=== PATIENT | female | born 1945 | race Caucasian/White ===

== ENCOUNTER 2022-04-17 21:13 | Observation (INO) | payer MEDICARE ==
[2022-04-17] MEDS ORDERED: D50W 50 ml Abboject IV ONE ×3 (21:26→22:11)
[2022-04-17] MEDS ORDERED: Zofran 4 MG/2 ML VIAL IV ONE (21:47)
[2022-04-17] MEDS ORDERED: Sodium Chloride 0.9% 1000 ML 1,000 ML ONE (21:51)
[2022-04-17] MEDS ORDERED: Zofran 4 MG/2 ML VIAL ONE (21:51)
[2022-04-17] MEDS ORDERED: Sodium Chloride 0.9% 1000 ML 1,000 ML IV SCH (22:00)
[2022-04-17] MEDS: DEXTROSE 10% 250 ML 250 ML IV SCH (22:15)
--- NOTE | 2022-04-17 22:16 | ERPHSYRPT ---
- History of Present Illness Time Seen by Provider: 04/17/22 21:19 Source: patient, family, EMS Exam Limitations: no limitations Patient Subjective Stated Complaint: feels tired Triage Nursing Assessment: Arrives via SCAT 1 to room 3. Placed on monitor. Pt oriented x 3 but quickly drifts back off to sleep. Becomes alert when name called. VSS, skin pale, warm, dry. Wound dressings noted to bilater lower extremities. EMS reports family called for unresponsiveness. Upon EMS arrival, glucose found to be 53. Half amp D50 given by EMS, EMS reports glucose michael to 117. EMS initiated 20 ga IV in R hand. Upon arrival to ED, RN found glucose to be 38 on finger stick. aware, received order for half amp D50. Given IV @ 2130. Glucose recheck at 2140 read 92. Pt remains drowsy but easily arouses when name called. Daughter at bedside. gleason gear generator initiated. 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 She was given 4 units of Humalog around 6 PM and she did have dinner afterwards. On EMS arrival her blood sugar was in 50s, was given half ampule of D50 and improved to 117 but again dropped to 38 on presentation in the ER. I have given another half ampule of D50. Patient is awake alert and oriented and answering questions appropriately. She denies any chest pain palpitations or shortness of breath. No abdominal pain nausea or vomiting. Denies any blurry vision, numbness tingling or focal weakness. Per daughter she has always issue with controlling her diabetes mellitus. Timing/Duration: hour(s) (0.5), improved Severity: moderate Modifying Factors: Improves With: other (IV dextrose 50) Associated Symptoms: weakness Allergies/Adverse Reactions: No Known Drug Allergies Allergy (Unverified 04/18/22 00:46) Home Medications: Allopurinol 100 mg [Zyloprim 100 mg] 100 mg PO DAILY 04/17/22 [History] Amitriptyline HCl 10 mg [Elavil 10 mg] 10 mg PO DAILY 04/17/22 [History] Aspirin EC 81 mg [Ecotrin 81 mg] 81 mg PO DAILY 04/17/22 [History] Atorvastatin Calcium 80 mg PO QHS 04/17/22 [History] Azelastine HCl 1 drop OP DAILY 04/17/22 [History] Balsalazide Disodium 750 mg PO QHS 04/17/22 [History] Calcium Carb, Citrate/Vit D3 [Calcium + D3 ER Tablet] 1 tab PO DAILY 04/17/22 [History] Ciclopirox/Skin Cleanser No.28 [Ciclodan 0.77% Cream Kit] 1 applic TOP QHS 04/17/22 [History] Collagenase Oint [Santyl OINTMENT] 1 applic TOP DAILY 04/17/22 [History] Divalproex Sodium [Depakote] 250 mg PO DAILY 04/17/22 [History] Divalproex Sodium [Depakote] 500 mg PO EVENING MEAL 04/17/22 [History] Duloxetine HCl 30 mg PO DAILY 04/17/22 [History] Duloxetine HCl [Cymbalta] 60 mg PO DAILY 04/17/22 [History] Furosemide 80 mg PO DAILY 04/17/22 [History] Furosemide 40 mg [Lasix 40 MG] 40 mg PO LUNCH 04/17/22 [History] Insulin Detemir [Levemir] 24 units SQ QHS 04/17/22 [History] Insulin Detemir [Levemir] 30 unit SQ QAM 04/17/22 [History] Insulin Lispro [Admelog Solostar] 1 unit SQ AC 04/17/22 [History] Levothyroxine Sodium [Levothyroxine] 25 mcg PO DAILY 04/17/22 [History] Lipase/Protease/Amylase [Elvis Portillo 24,000 Unit Capsule] 24,000 units PO AC 04/17/22 [History] Metoprolol Tartrate 25 mg PO BID 04/17/22 [History] Nitroglycerin 0.4 mg SL UD 04/17/22 [History] Oxybutynin Chloride 5 mg PO BID 04/17/22 [History] Pramipexole Di-HCl [Pramipexole Dihydrochloride] 1 mg PO TID 04/17/22 [History] Rivaroxaban [Xarelto] 15 mg PO EVENING MEAL 04/17/22 [History] Vitamin B Complex 1 tab PO DAILY 04/17/22 [History] Melatonin 10 mg PO QHS 04/18/22 [History] Triamcinolone 0.1% Lotion [Kenalog 0.1% Lotion] 1 applic TOP QHS 04/18/22 [History] Hx Tetanus, Diphtheria Vaccination/Date Given: No Hx Influenza Vaccination/Date Given: Yes (2011) Hx Pneumococcal Vaccination/Date Given: No Travel Risk - International Travel Have you traveled outside of the country in past 3 weeks: No - Coronavirus Screening Are you exhibiting any of the following symptoms?: No Close contact with a COVID-19 positive Pt in past 14-21 Days: No - Vaccine Status Have you recieved a Covid-19 vaccination: Yes Craft Coordinator: Unknown - Vaccination Dates Dates if Unknown: unknown - Review of Systems Constitutional: Fatigue, Weakness Eyes: No Symptoms Ears, Nose, & Throat: No Symptoms Respiratory: No Symptoms Cardiac: No Symptoms Abdominal/Gastrointestinal: No Symptoms Genitourinary Symptoms: No Symptoms Musculoskeletal: No Symptoms Skin: Rash, Skin Lesions Neurological: No Symptoms Psychological: No Symptoms Endocrine: No Symptoms Hematologic/Lymphatic: No Symptoms Immunological/Allergic: No Symptoms - Past Medical History Pertinent Past Medical History: Yes Neurological History: Migraines, TIA, Other ENT History: No Pertinent History Cardiac History: High Cholesterol, Hypertension, Other Respiratory History: No Pertinent History Endocrine Medical History: Diabetes Type II Musculoskeletal History: No Pertinent History, Degenerative Disk Disease GI Medical History: Irritable Bowel History: No Pertinent History Psycho-Social History: No Pertinent History Female Reproductive Disorders: No Pertinent History Other Medical History: NEUROPATHY - Past Surgical History Past Surgical History: Yes Cardiac: Pacemaker Gastrointestinal: Appendectomy, Cholecystectomy Musculoskeletal: Joint Replacement, Orthopedic Surgery Other Surgical History: BARIATRIC SURG,CARPAL TUNNEL - Social History Smoking Status: Never smoker Exposure to second hand smoke: Yes Drug Use: none Patient Lives Alone: Yes - Nursing Vital Signs Nursing Vital Signs: Initial Vital Signs Temperature 97.9 F 04/17/22 21:18 Pulse Rate 73 04/17/22 21:18 Respiratory Rate 16 04/17/22 21:18 Blood Pressure 111/48 04/17/22 21:18 O2 Sat by Pulse Oximetry 96 04/17/22 21:18 Pain Scale Pain Intensity 2 - Physical Exam General Appearance: no apparent distress, alert Eye Exam: PERRL/EOMI Ears, Nose, Throat Exam: normal ENT inspection, TMs normal, pharynx normal, moist mucous membranes Neck Exam: normal inspection, full range of motion Respiratory Exam: normal breath sounds, lungs clear Cardiovascular Exam: regular rate/rhythm, normal heart sounds Gastrointestinal/Abdomen Exam: soft, normal bowel sounds Back Exam: normal inspection, normal range of motion Extremity Exam: other Neurologic Exam: alert, oriented x 3, cooperative, solar project engineer II-XII 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 as tested, No motor deficits Skin Exam: rash SpO2 Interpretation: normal SpO2: 96 O2 Delivery: Room Air - Course EKG Interpreted by Me: RATE (78 atrial paced rhythm, PVCs), NORMAL AXIS, Right Bundle Branch Block, Non-specific ST Changes Ordered Tests: Active Orders 24 hr Category Date Time Status Bedrest ROUTINE Activity 04/18/22 00:38 Active Up With Assistance ROUTINE Activity 04/18/22 00:38 Active Code Status Order ROUTINE Care 04/18/22 00:38 Active EKG-ER Only STAT Care 04/17/22 21:47 Completed Fall Protocol Q1H Care 04/18/22 00:38 Active Kim [Catheter-Hawley Kim] STAT Care 04/17/22 23:32 Completed IV Care Q6H Care 04/18/22 00:38 Active IV Insertion STAT Care 04/17/22 21:47 Completed NPO (ED) STAT Care 04/17/22 21:47 Completed Neuro Checks Q1H Care 04/18/22 00:38 Active POCT Glucose Check Q1H Care 04/18/22 00:[address] in Observation ROUTINE Care 04/18/22 00:38 Active Shamika Kapoor ROUTINE Care 04/18/22 00:38 Active Weight,Daily 0600 Care 04/18/22 00:38 Active Consistent Carbohydrate Diet 1800 Calorie Diet 04/18/22 Breakfast Active CHEST 1 VIEW (PORTABLE) Stat Exams 04/17/22 21:47 Taken BLOOD CULTURE Stat Lab 04/17/22 22:13 Received BNP [NT PRO BNP] Stat Lab 04/17/22 22:20 Completed CBC W DIFF AM.LAB Lab 04/18/22 04:42 Completed CBC W DIFF Stat Lab 04/17/22 22:13 Completed CMP AM.LAB Lab 04/18/22 04:42 Completed CMP Stat Lab 04/17/22 22:13 Completed Lactic Acid Stat Lab 04/17/22 22:10 Completed Occult Blood Stool [FECAL OCCULT BLOOD -DIAGNOSTIC] Lab 04/17/22 23:45 Ordered Stat POCT GLUCOSE Stat Lab 04/17/22 21:25 Completed POCT GLUCOSE Stat Lab 04/17/22 21:39 Completed POCT GLUCOSE Stat Lab 04/17/22 22:03 Completed POCT GLUCOSE Stat Lab 04/17/22 22:32 Completed POCT GLUCOSE Stat Lab 04/17/22 23:15 Completed POCT GLUCOSE Stat Lab 04/18/22 00:15 Completed PROCALCITONIN Stat Lab 04/17/22 22:13 Completed TROPONIN Q4H Lab 04/17/22 22:13 Completed TROPONIN Q4H Lab 04/18/22 01:18 Completed TROPONIN Q4H Lab 04/18/22 04:42 Completed UA W/RFX CULTURE Stat Lab 04/17/22 23:46 Completed Medication Summary Generic Name Dose Route Start Last Admin Trade Name Freq PRN Reason Stop Dose Admin Acetaminophen 650 mg 04/18/22 00:38 Acetaminophen 325 Mg Tablet PO 05/18/22 00:37 Q4H PRN PRN PAIN AND/OR FEVER Dextrose 250 mls @ 30 mls/hr 04/17/22 22:30 04/18/22 03:14 Dextrose 10% 250 Ml IV 05/17/22 22:29 50 mls/hr .Q8H20M CORNELIA Administration Pantoprazole Sodium 40 mg 04/18/22 10:00 Pantoprazole 40 Mg Vial IV 05/18/22 09:59 Q24H10 CORNELIA Discontinued Medications Generic Name Dose Route Start Last Admin Trade Name Freq PRN Reason Stop Dose Admin Albuterol/Ipratropium 3 ml 04/18/22 00:38 Ipratropium/Albuterol Sulfate 3 Ml Ampul.Neb IH 05/18/22 00:37 Q4HPRN PRN SHORTNESS OF BREATH/WHEEZING Dextrose Confirm 04/17/22 21:26 Dextrose 50%-Water 50 Ml Abboject Administered 04/17/22 21:27 Dose 50 ml IV .STK-MED ONE Dextrose 25 ml 04/17/22 22:10 04/17/22 21:30 Dextrose 50%-Water 50 Ml Abboject IV 04/17/22 22:11 25 ml STAT ONE Administration Dextrose 25 ml 04/17/22 22:11 04/17/22 22:12 Dextrose 50%-Water 50 Ml Abboject IV 04/17/22 22:12 25 ml STAT ONE Administration Sodium Chloride 1,000 mls @ 100 mls/hr 04/17/22 22:00 04/17/22 23:32 Sodium Chloride 0.9% 1000 Ml IV 05/17/22 21:59 0 mls/hr .Q10H CORNELIA Infusion Sodium Chloride Confirm 04/17/22 21:51 Sodium Chloride 0.9% 1000 Ml Administered 04/17/22 21:52 Dose 1,000 mls @ ud .ROUTE .STK-MED ONE Ondansetron HCl 4 mg 04/17/22 21:47 04/17/22 21:52 Ondansetron Hcl 4 Mg/2 Ml Vial IV 04/17/22 21:48 4 mg STAT ONE Administration Ondansetron HCl Confirm 04/17/22 21:51 Ondansetron Hcl 4 Mg/2 Ml Vial Administered 04/17/22 21:52 Dose 4 mg .ROUTE .STK-MED ONE Potassium Chloride 40 meq 04/17/22 22:54 04/17/22 22:58 Potassium Chloride Tab 10 Meq Tab PO 04/17/22 22:55 40 meq STAT ONE Administration Potassium Chloride Confirm 04/17/22 22:56 Potassium Chloride Tab 10 Meq Tab Administered 04/17/22 22:57 Dose 40 meq PO .STK-MED ONE Lab/Rad Data: Laboratory Result Diagrams 04/17/22 22:13 04/17/22 22:13 Laboratory Results 04/18/22 04/17/22 04/17/22 Range/Units 00:15 23:46 23:15 WBC (4.0-10.5) x10^3/uL RBC (4.1-5.4) x10^6/uL Hgb (12.0-16.0) g/dL Hct (35-47) % MCV (78-100) fL MCH (26-32) pg MCHC (32-36) g/dL RDW (11.5-14.0) % Plt Count (150-450) x10^3/uL MPV (7.5-11.0) fL Gran % (36.0-66.0) % Immature Gran % (Auto) (0.00-0.4) % Nucleat RBC Rel Count (0.00-0.1) % Eos # (Auto) (0-0.5) x10^3/uL Immature Gran # (Auto) (0.00-0.03) x10^3u/L Absolute Lymphs (auto) (1.0-4.6) x10^3/uL Absolute Monos (auto) (0.0-1.3) x10^3/uL Absolute Nucleated RBC (0.00-0.01) x10^3u/L Lymphocytes % (24.0-44.0) % Monocytes % (0.0-12.0) % Eosinophils % (0.00-5.0) % Basophils % (0.0-0.4) % Absolute Granulocytes (1.4-6.9) x10^3/uL Basophils # (0-0.4) x10^3/uL Sodium (137-145) mmol/L Potassium (3.5-5.1) mmol/L Chloride (98-107) mmol/L Carbon Dioxide (22-30) mmol/L Anion Gap (5-15) MEQ/L BUN (7-17) mg/dL Creatinine (0.52-1.04) mg/dL Estimated GFR ML/MIN Glucose (74-106) mg/dL POC Glucometer 146 H 79 (50 to 500) mg/dL Lactic Acid (0.4-2.0) Calcium (8.4-10.2) mg/dL Total Bilirubin (0.2-1.3) mg/dL AST (14-36) U/L ALT (0-35) U/L Alkaline Phosphatase (38-126) U/L Troponin I (0.000-0.034) ng/mL NT-Pro-B Natriuret Pep (0-900) pg/mL Serum Total Protein (6.3-8.2) g/dL Albumin (3.5-5.0) g/dL Procalcitonin (0.030-0.080) ng/mL Urinalys Dipstick Clnc MAIN LAB Urine Color YELLOW (YELLOW) Urine Appearance CLEAR (CLEAR) Urine pH 5.5 (5-6) Ur Specific Warren 1.020 (1.005-1.025) POC Urine Protein Conf 30 (Negative) Urine Ketones NEGATIVE (NEGATIVE) Urine Nitrite NEGATIVE (NEGATIVE) Urine Bilirubin NEGATIVE (NEGATIVE) Urine Urobilinogen 0.2 (0-1) mg/dL Urine Leukocytes NEGATIVE (NEGATIVE) Urine WBC (Auto) 0-2 (0-5) /HPF Urine RBC (Auto) NONE (0-2) /HPF U Hyaline Cast (Auto) 6-10 (0-2) /LPF U Epithel Cells (Auto) RARE (FEW) /HPF Urine Bacteria (Auto) NONE SEEN (NEGATIVE) /HPF Urine RBC NEGATIVE (0-5) Chente/ul Urine Mucus (Auto) SLIGHT (NEGATIVE) /HPF Ur Culture Indicated? NO Urine Glucose NEGATIVE (NEGATIVE) mg/dL Influenza Type A Ag (NEGATIVE) Influenza Type B Ag (NEGATIVE) RSV (PCR) (Negative) SARS-CoV-2 (PCR) (NEGATIVE) ABO Group Rh Factor Antibody Screen (NEGATIVE) Crossmatch (COMPATIBLE) 04/17/22 04/17/22 04/17/22 Range/Units 23:02 22:32 22:20 WBC (4.0-10.5) x10^3/uL RBC (4.1-5.4) x10^6/uL Hgb (12.0-16.0) g/dL Hct (35-47) % MCV (78-100) fL MCH (26-32) pg MCHC (32-36) g/dL RDW (11.5-14.0) % Plt Count (150-450) x10^3/uL MPV (7.5-11.0) fL Gran % (36.0-66.0) % Immature Gran % (Auto) (0.00-0.4) % Nucleat RBC Rel Count (0.00-0.1) % Eos # (Auto) (0-0.5) x10^3/uL Immature Gran # (Auto) (0.00-0.03) x10^3u/L Absolute Lymphs (auto) (1.0-4.6) x10^3/uL Absolute Monos (auto) (0.0-1.3) x10^3/uL Absolute Nucleated RBC (0.00-0.01) x10^3u/L Lymphocytes % (24.0-44.0) % Monocytes % (0.0-12.0) % Eosinophils % (0.00-5.0) % Basophils % (0.0-0.4) % Absolute Granulocytes (1.4-6.9) x10^3/uL Basophils # (0-0.4) x10^3/uL Sodium (137-145) mmol/L Potassium (3.5-5.1) mmol/L Chloride (98-107) mmol/L Carbon Dioxide (22-30) mmol/L Anion Gap (5-15) MEQ/L BUN (7-17) mg/dL Creatinine (0.52-1.04) mg/dL Estimated GFR ML/MIN Glucose (74-106) mg/dL POC Glucometer 103 (50 to 500) mg/dL Lactic Acid (0.4-2.0) Calcium (8.4-10.2) mg/dL Total Bilirubin (0.2-1.3) mg/dL AST (14-36) U/L ALT (0-35) U/L Alkaline Phosphatase (38-126) U/L Troponin I (0.000-0.034) ng/mL NT-Pro-B Natriuret Pep 964 H (0-900) pg/mL Serum Total Protein (6.3-8.2) g/dL Albumin (3.5-5.0) g/dL Procalcitonin (0.030-0.080) ng/mL Urinalys Dipstick Clnc Urine Color (YELLOW) Urine Appearance (CLEAR) Urine pH (5-6) Ur Specific Warren (1.005-1.025) POC Urine Protein Conf (Negative) Urine Ketones (NEGATIVE) Urine Nitrite (NEGATIVE) Urine Bilirubin (NEGATIVE) Urine Urobilinogen (0-1) mg/dL Urine Leukocytes (NEGATIVE) Urine WBC (Auto) (0-5) /HPF Urine RBC (Auto) (0-2) /HPF U Hyaline Cast (Auto) (0-2) /LPF U Epithel Cells (Auto) (FEW) /HPF Urine Bacteria (Auto) (NEGATIVE) /HPF Urine RBC (0-5) Chente/ul Urine Mucus (Auto) (NEGATIVE) /HPF Ur Culture Indicated? Urine Glucose (NEGATIVE) mg/dL Influenza Type A Ag NEGATIVE (NEGATIVE) Influenza Type B Ag NEGATIVE (NEGATIVE) RSV (PCR) NEGATIVE (Negative) SARS-CoV-2 (PCR) NEGATIVE (NEGATIVE) ABO Group Rh Factor Antibody Screen (NEGATIVE) Crossmatch (COMPATIBLE) 04/17/22 04/17/22 04/17/22 Range/Units 22:13 22:13 22:13 WBC (4.0-10.5) x10^3/uL RBC (4.1-5.4) x10^6/uL Hgb (12.0-16.0) g/dL Hct (35-47) % MCV (78-100) fL MCH (26-32) pg MCHC (32-36) g/dL RDW (11.5-14.0) % Plt Count (150-450) x10^3/uL MPV (7.5-11.0) fL Gran % (36.0-66.0) % Immature Gran % (Auto) (0.00-0.4) % Nucleat RBC Rel Count (0.00-0.1) % Eos # (Auto) (0-0.5) x10^3/uL Immature Gran # (Auto) (0.00-0.03) x10^3u/L Absolute Lymphs (auto) (1.0-4.6) x10^3/uL Absolute Monos (auto) (0.0-1.3) x10^3/uL Absolute Nucleated RBC (0.00-0.01) x10^3u/L Lymphocytes % (24.0-44.0) % Monocytes % (0.0-12.0) % Eosinophils % (0.00-5.0) % Basophils % (0.0-0.4) % Absolute Granulocytes (1.4-6.9) x10^3/uL Basophils # (0-0.4) x10^3/uL Sodium 140 (137-145) mmol/L Potassium 3.0 L* (3.5-5.1) mmol/L Chloride 104 (98-107) mmol/L Carbon Dioxide 26 (22-30) mmol/L Anion Gap 12.7 (5-15) MEQ/L BUN 20 H (7-17) mg/dL Creatinine 1.22 H (0.52-1.04) mg/dL Estimated GFR 45.8 ML/MIN Glucose 71 L (74-106) mg/dL POC Glucometer (50 to 500) mg/dL Lactic Acid (0.4-2.0) Calcium 8.0 L (8.4-10.2) mg/dL Total Bilirubin 0.40 (0.2-1.3) mg/dL AST 30 (14-36) U/L ALT 16 (0-35) U/L Alkaline Phosphatase 111 (38-126) U/L Troponin I < 0.012 (0.000-0.034) ng/mL NT-Pro-B Natriuret Pep (0-900) pg/mL Serum Total Protein 6.0 L (6.3-8.2) g/dL Albumin 3.2 L (3.5-5.0) g/dL Procalcitonin 0.037 (0.030-0.080) ng/mL Urinalys Dipstick Clnc Urine Color (YELLOW) Urine Appearance (CLEAR) Urine pH (5-6) Ur Specific Warren (1.005-1.025) POC Urine Protein Conf (Negative) Urine Ketones (NEGATIVE) Urine Nitrite (NEGATIVE) Urine Bilirubin (NEGATIVE) Urine Urobilinogen (0-1) mg/dL Urine Leukocytes (NEGATIVE) Urine WBC (Auto) (0-5) /HPF Urine RBC (Auto) (0-2) /HPF U Hyaline Cast (Auto) (0-2) /LPF U Epithel Cells (Auto) (FEW) /HPF Urine Bacteria (Auto) (NEGATIVE) /HPF Urine RBC (0-5) Chente/ul Urine Mucus (Auto) (NEGATIVE) /HPF Ur Culture Indicated? Urine Glucose (NEGATIVE) mg/dL Influenza Type A Ag (NEGATIVE) Influenza Type B Ag (NEGATIVE) RSV (PCR) (Negative) SARS-CoV-2 (PCR) (NEGATIVE) ABO Group Rh Factor Antibody Screen (NEGATIVE) Crossmatch (COMPATIBLE) 04/17/22 04/17/22 04/17/22 Range/Units 22:13 22:10 22:03 WBC 7.7 (4.0-10.5) x10^3/uL RBC 3.27 L (4.1-5.4) x10^6/uL Hgb 7.9 L (12.0-16.0) g/dL Hct 27.2 L (35-47) % MCV 83.2 (78-100) fL MCH 24.2 L (26-32) pg MCHC 29.0 L (32-36) g/dL RDW 16.6 H (11.5-14.0) % Plt Count 244 (150-450) x10^3/uL MPV 9.4 (7.5-11.0) fL Gran % 82.8 H (36.0-66.0) % Immature Gran % (Auto) 0.1 (0.00-0.4) % Nucleat RBC Rel Count 0.0 (0.00-0.1) % Eos # (Auto) 0.03 (0-0.5) x10^3/uL Immature Gran # (Auto) 0.01 (0.00-0.03) x10^3u/L Absolute Lymphs (auto) 0.75 L (1.0-4.6) x10^3/uL Absolute Monos (auto) 0.52 (0.0-1.3) x10^3/uL Absolute Nucleated RBC 0.00 (0.00-0.01) x10^3u/L Lymphocytes % 9.8 L (24.0-44.0) % Monocytes % 6.8 (0.0-12.0) % Eosinophils % 0.4 (0.00-5.0) % Basophils % 0.1 (0.0-0.4) % Absolute Granulocytes 6.33 (1.4-6.9) x10^3/uL Basophils # 0.01 (0-0.4) x10^3/uL Sodium (137-145) mmol/L Potassium (3.5-5.1) mmol/L Chloride (98-107) mmol/L Carbon Dioxide (22-30) mmol/L Anion Gap (5-15) MEQ/L BUN (7-17) mg/dL Creatinine (0.52-1.04) mg/dL Estimated GFR ML/MIN Glucose (74-106) mg/dL POC Glucometer 69 L (50 to 500) mg/dL Lactic Acid 0.6 (0.4-2.0) Calcium (8.4-10.2) mg/dL Total Bilirubin (0.2-1.3) mg/dL AST (14-36) U/L ALT (0-35) U/L Alkaline Phosphatase (38-126) U/L Troponin I (0.000-0.034) ng/mL NT-Pro-B Natriuret Pep (0-900) pg/mL Serum Total Protein (6.3-8.2) g/dL Albumin (3.5-5.0) g/dL Procalcitonin (0.030-0.080) ng/mL Urinalys Dipstick Clnc Urine Color (YELLOW) Urine Appearance (CLEAR) Urine pH (5-6) Ur Specific Warren (1.005-1.025) POC Urine Protein Conf (Negative) Urine Ketones (NEGATIVE) Urine Nitrite (NEGATIVE) Urine Bilirubin (NEGATIVE) Urine Urobilinogen (0-1) mg/dL Urine Leukocytes (NEGATIVE) Urine WBC (Auto) (0-5) /HPF Urine RBC (Auto) (0-2) /HPF U Hyaline Cast (Auto) (0-2) /LPF U Epithel Cells (Auto) (FEW) /HPF Urine Bacteria (Auto) (NEGATIVE) /HPF Urine RBC (0-5) Chente/ul Urine Mucus (Auto) (NEGATIVE) /HPF Ur Culture Indicated? Urine Glucose (NEGATIVE) mg/dL Influenza Type A Ag (NEGATIVE) Influenza Type B Ag (NEGATIVE) RSV (PCR) (Negative) SARS-CoV-2 (PCR) (NEGATIVE) ABO Group Rh Factor Antibody Screen (NEGATIVE) Crossmatch (COMPATIBLE) 04/17/22 04/17/22 04/17/22 Range/Units 21:39 21:25 01:18 WBC (4.0-10.5) x10^3/uL RBC (4.1-5.4) x10^6/uL Hgb (12.0-16.0) g/dL Hct (35-47) % MCV (78-100) fL MCH (26-32) pg MCHC (32-36) g/dL RDW (11.5-14.0) % Plt Count (150-450) x10^3/uL MPV (7.5-11.0) fL Gran % (36.0-66.0) % Immature Gran % (Auto) (0.00-0.4) % Nucleat RBC Rel Count (0.00-0.1) % Eos # (Auto) (0-0.5) x10^3/uL Immature Gran # (Auto) (0.00-0.03) x10^3u/L Absolute Lymphs (auto) (1.0-4.6) x10^3/uL Absolute Monos (auto) (0.0-1.3) x10^3/uL Absolute Nucleated RBC (0.00-0.01) x10^3u/L Lymphocytes % (24.0-44.0) % Monocytes % (0.0-12.0) % Eosinophils % (0.00-5.0) % Basophils % (0.0-0.4) % Absolute Granulocytes (1.4-6.9) x10^3/uL Basophils # (0-0.4) x10^3/uL Sodium (137-145) mmol/L Potassium (3.5-5.1) mmol/L Chloride (98-107) mmol/L Carbon Dioxide (22-30) mmol/L Anion Gap (5-15) MEQ/L BUN (7-17) mg/dL Creatinine (0.52-1.04) mg/dL Estimated GFR ML/MIN Glucose (74-106) mg/dL POC Glucometer 92 38 L* (50 to 500) mg/dL Lactic Acid (0.4-2.0) Calcium (8.4-10.2) mg/dL Total Bilirubin (0.2-1.3) mg/dL AST (14-36) U/L ALT (0-35) U/L Alkaline Phosphatase (38-126) U/L Troponin I (0.000-0.034) ng/mL NT-Pro-B Natriuret Pep (0-900) pg/mL Serum Total Protein (6.3-8.2) g/dL Albumin (3.5-5.0) g/dL Procalcitonin (0.030-0.080) ng/mL Urinalys Dipstick Clnc Urine Color (YELLOW) Urine Appearance (CLEAR) Urine pH (5-6) Ur Specific Warren (1.005-1.025) POC Urine Protein Conf (Negative) Urine Ketones (NEGATIVE) Urine Nitrite (NEGATIVE) Urine Bilirubin (NEGATIVE) Urine Urobilinogen (0-1) mg/dL Urine Leukocytes (NEGATIVE) Urine WBC (Auto) (0-5) /HPF Urine RBC (Auto) (0-2) /HPF U Hyaline Cast (Auto) (0-2) /LPF U Epithel Cells (Auto) (FEW) /HPF Urine Bacteria (Auto) (NEGATIVE) /HPF Urine RBC (0-5) Chente/ul Urine Mucus (Auto) (NEGATIVE) /HPF Ur Culture Indicated? Urine Glucose (NEGATIVE) mg/dL Influenza Type A Ag (NEGATIVE) Influenza Type B Ag (NEGATIVE) RSV (PCR) (Negative) SARS-CoV-2 (PCR) (NEGATIVE) ABO Group O Rh Factor POSITIVE Antibody Screen NEGATIVE (NEGATIVE) Crossmatch COMPATIBLE (COMPATIBLE) - Progress Progress: improved Progress Note: 04/17/22 23:23 76 years old is evaluated for hyperglycemia. She was hypoglycemic again on presentation after receiving half ampule of D50, I have repeated half ampule of D50 and started on D10 but again it is dropping to 79. She has normal white count, she has a hemoglobin of 7.9, no previous comparison available. She is on Xarelto but denies any history of dark stool. We will obtain records from [facility] where she normally goes. Chest x-ray no acute findings reviewed by me, official report is pending. Negative initial troponins. Has mildly low potassium of 3.0 and given oral replacement. Patient is awake alert and oriented and not in any distress. Discussed with and patient is being admitted. No obvious focus of infection and negative p rocalcitonin/lactate. 04/17/22 23:30 Discussed risk and benefits of transfusion with patient and family who understand and agree with going ahead with transfusion if needed. We will continue to monitor H&H and if drops below 7 patient would be transfused. We will try crossmatch and hold 2 units. Discussed with : Nico Will see patient in: hospital (observation) Counseled pt/family regarding: lab results, diagnosis, need for follow-up, rad results - Departure Departure Disposition: Observation Clinical Impression: Hypoglycemia, Hypokalemia, Anemia Condition: Stable Critical Care Time: No
[2022-04-17 22:17] LABS: Absolute Neutrophil Ct (ANC) 6.33 x10^3/uL (1.4-6.9); Basophil (Absolute #) 0.01 x10^3/uL (0-0.4); Eosinophil % 0.4 % (0.00-5.0); Eosinophil (Absolute #) 0.03 x10^3/uL (0-0.5); Hematocrit 27.2 % (35-47); Hemoglobin 7.9 g/dL (12.0-16.0); Lymphocyte (Absolute #) 0.75 x10^3/uL (1.0-4.6); Lymphocytes % 9.8 % (24.0-44.0); Mean Cell Volume 83.2 fL (78-100); Mean Corpuscular Hemoglobin 24.2 pg (26-32); Mean Platelet Volume 9.4 fL (7.5-11.0); Monocyte (Absolute #) 0.52 x10^3/uL (0.0-1.3); Monocytes % 6.8 % (0.0-12.0); Neutrophil % 82.8 % (36.0-66.0); Platelet Count 244 x10^3/uL (150-450); Red Blood Count 3.27 x10^6/uL (4.1-5.4); Red Cell Distribution Width 16.6 % (11.5-14.0); White Blood Count 7.7 x10^3/uL (4.0-10.5)
[2022-04-17 22:41] LABS: ALBUMIN 3.2 g/dL (3.5-5.0); ANION GAP 12.7 MEQ/L (5-15); BILIRUBIN,TOTAL 0.4 mg/dL (0.2-1.3); Creatinine 1 1.22 mg/dL (0.52-1.04); EST GLOMERULAR FILTRATION RATE 45.8 ML/MIN
[2022-04-17] MEDS ORDERED: Klor Con PO ONE ×2 (22:54→22:56)
[2022-04-17 23:42] LABS: INFLUENZA A NEGATIVE (NEGATIVE); INFLUENZA B NEGATIVE (NEGATIVE); RESPIRATORY SYNCTIAL VIRUS NEGATIVE (Negative); SARS-CoV-2 Xpert Express NEGATIVE (NEGATIVE)
[2022-04-17 23:46] LABS: Appearance CLEAR (CLEAR); Bilirubin NEGATIVE (NEGATIVE); Glucose NEGATIVE (NEGATIVE); Ketones NEGATIVE (NEGATIVE); Ph 5.5 (5-6); Protein,Urine Dip 30 (Negative); RBC NEGATIVE Ery/ul (0-5)
[2022-04-17 23:47] LABS: Dipstick done @ ? MAIN LAB; Nitrite NEGATIVE (NEGATIVE); Urobilinogen 0.2 mg/dL (0-1)
[2022-04-17 23:51] LABS: Epithelial Cells RARE /HPF (FEW); Mucus SLIGHT /HPF (NEGATIVE); WBC 0-2 /HPF (0-5)
[2022-04-17 23:54] LABS: Bacteria NONE SEEN /HPF (NEGATIVE); Urine Cultured Indicated? NO
[2022-04-18] MEDS ORDERED: DUONEB 0.5-3 MG/3 ml Neb IH PRN (00:38)
[2022-04-18 02:45] LABS: ABO TYPING O; Antibody Screen NEGATIVE (NEGATIVE); RH TYPING POSITIVE
[2022-04-18 02:50] LABS: CROSS MATCH (PRBC) COMPATIBLE (COMPATIBLE)
[2022-04-18] MEDS: DEXTROSE 10% 250 ML 250 ML IV SCH ×2 (03:14→09:45)
[2022-04-18 05:05] LABS: Absolute Neutrophil Ct (ANC) 5.11 x10^3/uL (1.4-6.9); Basophil (Absolute #) 0.02 x10^3/uL (0-0.4); Eosinophil % 0.4 % (0.00-5.0); Eosinophil (Absolute #) 0.03 x10^3/uL (0-0.5); Hematocrit 28.1 % (35-47); Hemoglobin 8.1 g/dL (12.0-16.0); Lymphocyte (Absolute #) 1.51 x10^3/uL (1.0-4.6); Lymphocytes % 20.9 % (24.0-44.0); Mean Cell Volume 84.9 fL (78-100); Mean Corpuscular Hemoglobin 24.5 pg (26-32); Mean Corpuscular Hgb Concent. 28.8 g/dL (32-36); Monocyte (Absolute #) 0.54 x10^3/uL (0.0-1.3); Monocytes % 7.5 % (0.0-12.0); Neutrophil % 70.8 % (36.0-66.0); Platelet Count 249 x10^3/uL (150-450); Red Blood Count 3.31 x10^6/uL (4.1-5.4); Red Cell Distribution Width 17.1 % (11.5-14.0); White Blood Count 7.2 x10^3/uL (4.0-10.5)
[2022-04-18 05:39] LABS: ALBUMIN 3.3 g/dL (3.5-5.0); ANION GAP 12.5 MEQ/L (5-15); BILIRUBIN,TOTAL 0.5 mg/dL (0.2-1.3); Calcium 7.9 mg/dL (8.4-10.2); Creatinine 1 1.22 mg/dL (0.52-1.04); EST GLOMERULAR FILTRATION RATE 45.8 ML/MIN; Potassium 3.6 mmol/L (3.5-5.1); Total Protein 6.4 g/dL (6.3-8.2)
[2022-04-18 05:49] LABS: Slide Review 1 YES
--- NOTE | 2022-04-18 07:55 | PCM.HP ---
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 She was given 4 units of Humalog around 6 PM and she did have dinner afterwards. On EMS arrival her blood sugar was in 50s, was given half ampule of D50 and improved to 117 but again dropped to 38 on presentation in the ER. I have given another half ampule of D50. Patient is awake alert and oriented and answering questions appropriately. She denies any chest pain palpitations or shortness of breath. No abdominal pain nausea or vomiting. Denies any blurry vision, numbness tingling or focal weakness. Per daughter she has always issue with controlling her diabetes mellitus. Timing/Duration: hour(s) (0.5), improved Severity: moderate Modifying Factors: Improves With: other (IV dextrose 50) Associated Symptoms: weakness - Review of Systems Constitutional: Fatigue, Lethargy, Malaise, Weakness, No Fever, No Chills Eyes: No Symptoms Ears, Nose, & Throat: No Symptoms Respiratory: No Cough, No Short Of Breath Cardiac: No Chest Pain, No Edema, No Syncope Abdominal/Gastrointestinal: No Abdominal Pain, No Nausea, No Vomiting, No Diarrhea Genitourinary Symptoms: No Dysuria Musculoskeletal: No Back Pain, No Neck Pain Skin: No Rash Neurological: No Dizziness, No Focal Weakness, No Sensory Changes Psychological: No Symptoms Endocrine: No Symptoms Hematologic/Lymphatic: No Symptoms Immunological/Allergic: No Symptoms Medications & Allergies Home Medications: Home Medication List Allopurinol 100 mg [Zyloprim 100 mg] 100 mg PO DAILY 04/17/22 [History Confirmed 04/17/22] Amitriptyline HCl 10 mg [Elavil 10 mg] 10 mg PO DAILY 04/17/22 [History Confirmed 04/17/22] Aspirin EC 81 mg [Ecotrin 81 mg] 81 mg PO DAILY 04/17/22 [History Confirmed 04/17/22] Atorvastatin Calcium 80 mg PO QHS 04/17/22 [History Confirmed 04/17/22] Azelastine HCl 1 drop OP DAILY 04/17/22 [History Confirmed 04/17/22] Balsalazide Disodium 750 mg PO QHS 04/17/22 [History Confirmed 04/17/22] Calcium Carb, Citrate/Vit D3 [Calcium + D3 ER Tablet] 1 tab PO DAILY 04/17/22 [History Confirmed 04/17/22] Ciclopirox/Skin Cleanser No.28 [Ciclodan 0.77% Cream Kit] 1 applic TOP QHS 04/17/22 [History Confirmed 04/17/22] Collagenase Oint [Santyl OINTMENT] 1 applic TOP DAILY 04/17/22 [History Confirmed 04/17/22] Divalproex Sodium [Depakote] 250 mg PO DAILY 04/17/22 [History Confirmed 04/17/22] Divalproex Sodium [Depakote] 500 mg PO EVENING MEAL 04/17/22 [History Confirmed 04/17/22] Duloxetine HCl 30 mg PO DAILY 04/17/22 [History Confirmed 04/17/22] Duloxetine HCl [Cymbalta] 60 mg PO DAILY 04/17/22 [History Confirmed 04/17/22] Furosemide 80 mg PO DAILY 04/17/22 [History Confirmed 04/17/22] Furosemide 40 mg [Lasix 40 MG] 40 mg PO LUNCH 04/17/22 [History Confirmed 04/17/22] Insulin Detemir [Levemir] 24 units SQ QHS 04/17/22 [History Confirmed 04/17/22] Insulin Detemir [Levemir] 30 unit SQ QAM 04/17/22 [History Confirmed 04/17/22] Insulin Lispro [Admelog Solostar] 1 unit SQ AC 04/17/22 [History Confirmed 04/17/22] Levothyroxine Sodium [Levothyroxine] 25 mcg PO DAILY 04/17/22 [History Confirmed 04/17/22] Lipase/Protease/Amylase [Elvis Portillo 24,000 Unit Capsule] 24,000 units PO AC 04/17/22 [History Confirmed 04/17/22] Metoprolol Tartrate 25 mg PO BID 04/17/22 [History Confirmed 04/17/22] Nitroglycerin 0.4 mg SL UD 04/17/22 [History Confirmed 04/17/22] Oxybutynin Chloride 5 mg PO BID 04/17/22 [History Confirmed 04/17/22] Pramipexole Di-HCl [Pramipexole Dihydrochloride] 1 mg PO TID 04/17/22 [History Confirmed 04/17/22] Rivaroxaban [Xarelto] 15 mg PO EVENING MEAL 04/17/22 [History Confirmed 04/18/22] Vitamin B Complex 1 tab PO DAILY 04/17/22 [History Confirmed 04/17/22] Melatonin 10 mg PO QHS 04/18/22 [History Confirmed 04/18/22] Triamcinolone 0.1% Lotion [Kenalog 0.1% Lotion] 1 applic TOP QHS 04/18/22 [History Confirmed 04/18/22] Allergies/Adverse Reactions: Allergies Allergy/AdvReac Type Severity Reaction Status Date / Time No Known Drug Allergies Allergy Unverified 04/18/22 00:46 - Past Medical History Past Medical History: Yes Neurological History: Migraines, TIA, Other ENT History: No Pertinent History Cardiac History: High Cholesterol, Hypertension, Other Respiratory History: No Pertinent History Endocrine Medical History: Diabetes Type II Musculoskelatal History: No Pertinent History, Degenerative Disk Disease GI Medical History: Irritable Bowel History: No Pertinent History Pyscho-Social History: No Pertinent History Reproductive Disorders: No Pertinent History Comment: NEUROPATHY - Past Surgical History Past Surgical History: Yes Neuro Surgical History: No Pertinent History Cardiac History: Pacemaker GI Surgical History: Appendectomy, Cholecystectomy Genitourinary Surgical Hx: No Pertinent History Musculskeletal Surgical Hx: Joint Replacement, Orthopedic Surgery Female Surgical History: No Pertinent History Other Surgical History: BARIATRIC SURG,CARPAL TUNNEL - Social History Smoking Status: Never smoker Exposure to second hand smoke: Yes Alcohol: None Drug Use: none - Physical Exam Vital Signs: Vital Signs - 24 hr Temp Pulse Resp BP Pulse Ox 04/18/22 06:42 96 04/18/22 04:00 97.5 F 64 20 125/57 100 04/18/22 03:00 61 18 98 04/18/22 00:55 97.6 F 63 16 110/49 100 04/17/22 23:51 62 18 108/55 04/17/22 22:27 60 16 94/55 97 09/18/22 21:18 97.9 F 73 16 111/48 96 General Appearance: moderate distress, alert Neurologic Exam: alert, oriented x 3, cooperative, sensation nml, No motor deficits Eye Exam: PERRL/EOMI, eyes nml inspection Ears, Nose, Throat Exam: normal ENT inspection, TMs normal, pharynx normal, m oist mucous membranes Neck Exam: normal inspection, non-tender, supple, full range of motion Respiratory Exam: normal breath sounds, lungs clear, No respiratory distress Cardiovascular Exam: regular rate/rhythm, normal heart sounds, normal peripheral pulses Gastrointestinal/Abdomen Exam: soft, normal bowel sounds, No tenderness, No mass Back Exam: normal inspection, normal range of motion, No CVA tenderness, No vertebral tenderness Extremity Exam: normal inspection, normal range of motion, pelvis stable Skin Exam: normal color, warm, dry, No rash Lymphatic Exam: No adenopathy Results - Labs Lab/Micro Results: Lab Results-Last 24 Hours 04/17/22 04/17/22 04/17/22 Range/Units 01:18 21:25 21:39 WBC (4.0-10.5) x10^3/uL RBC (4.1-5.4) x10^6/uL Hgb (12.0-16.0) g/dL Hct (35-47) % MCV (78-100) fL MCH (26-32) pg MCHC (32-36) g/dL RDW (11.5-14.0) % Plt Count (150-450) x10^3/uL MPV (7.5-11.0) fL Gran % (36.0-66.0) % Immature Gran % (Auto) (0.00-0.4) % Nucleat RBC Rel Count (0.00-0.1) % Eos # (Auto) (0-0.5) x10^3/uL Immature Gran # (Auto) (0.00-0.03) x10^3u/L Absolute Lymphs (auto) (1.0-4.6) x10^3/uL Absolute Monos (auto) (0.0-1.3) x10^3/uL Absolute Nucleated RBC (0.00-0.01) x10^3u/L Lymphocytes % (24.0-44.0) % Monocytes % (0.0-12.0) % Eosinophils % (0.00-5.0) % Basophils % (0.0-0.4) % Absolute Granulocytes (1.4-6.9) x10^3/uL Basophils # (0-0.4) x10^3/uL Sodium (137-145) mmol/L Potassium (3.5-5.1) mmol/L Chloride (98-107) mmol/L Carbon Dioxide (22-30) mmol/L Anion Gap (5-15) MEQ/L BUN (7-17) mg/dL Creatinine (0.52-1.04) mg/dL Estimated GFR ML/MIN Glucose (74-106) mg/dL POC Glucometer 38 L* 92 (50 to 500) mg/dL Lactic Acid (0.4-2.0) Calcium (8.4-10.2) mg/dL Total Bilirubin (0.2-1.3) mg/dL AST (14-36) U/L ALT (0-35) U/L Alkaline Phosphatase (38-126) U/L Troponin I (0.000-0.034) ng/mL NT-Pro-B Natriuret Pep (0-900) pg/mL Serum Total Protein (6.3-8.2) g/dL Albumin (3.5-5.0) g/dL Procalcitonin (0.030-0.080) ng/mL Urinalys Dipstick Clnc Urine Color (YELLOW) Urine Appearance (CLEAR) Urine pH (5-6) Ur Specific Stanton (1.005-1.025) POC Urine Protein Conf (Negative) Urine Ketones (NEGATIVE) Urine Nitrite (NEGATIVE) Urine Bilirubin (NEGATIVE) Urine Urobilinogen (0-1) mg/dL Urine Leukocytes (NEGATIVE) Urine WBC (Auto) (0-5) /HPF Urine RBC (Auto) (0-2) /HPF U Hyaline Cast (Auto) (0-2) /LPF U Epithel Cells (Auto) (FEW) /HPF Urine Bacteria (Auto) (NEGATIVE) /HPF Urine RBC (0-5) Chente/ul Urine Mucus (Auto) (NEGATIVE) /HPF Ur Culture Indicated? Urine Glucose (NEGATIVE) mg/dL Influenza Type A Ag (NEGATIVE) Influenza Type B Ag (NEGATIVE) RSV (PCR) (Negative) SARS-CoV-2 (PCR) (NEGATIVE) Slides for Path Review ABO Group O Rh Factor POSITIVE Antibody Screen NEGATIVE (NEGATIVE) Crossmatch COMPATIBLE (COMPATIBLE) 04/17/22 04/17/22 04/17/22 Range/Units 22:03 22:10 22:13 WBC 7.7 (4.0-10.5) x10^3/uL RBC 3.27 L (4.1-5.4) x10^6/uL Hgb 7.9 L (12.0-16.0) g/dL Hct 27.2 L (35-47) % MCV 83.2 (78-100) fL MCH 24.2 L (26-32) pg MCHC 29.0 L (32-36) g/dL RDW 16.6 H (11.5-14.0) % Plt Count 244 (150-450) x10^3/uL MPV 9.4 (7.5-11.0) fL Gran % 82.8 H (36.0-66.0) % Immature Gran % (Auto) 0.1 (0.00-0.4) % Nucleat RBC Rel Count 0.0 (0.00-0.1) % Eos # (Auto) 0.03 (0-0.5) x10^3/uL Immature Gran # (Auto) 0.01 (0.00-0.03) x10^3u/L Absolute Lymphs (auto) 0.75 L (1.0-4.6) x10^3/uL Absolute Monos (auto) 0.52 (0.0-1.3) x10^3/uL Absolute Nucleated RBC 0.00 (0.00-0.01) x10^3u/L Lymphocytes % 9.8 L (24.0-44.0) % Monocytes % 6.8 (0.0-12.0) % Eosinophils % 0.4 (0.00-5.0) % Basophils % 0.1 (0.0-0.4) % Absolute Granulocytes 6.33 (1.4-6.9) x10^3/uL Basophils # 0.01 (0-0.4) x10^3/uL Sodium (137-145) mmol/L Potassium (3.5-5.1) mmol/L Chloride (98-107) mmol/L Carbon Dioxide (22-30) mmol/L Anion Gap (5-15) MEQ/L BUN (7-17) mg/dL Creatinine (0.52-1.04) mg/dL Estimated GFR ML/MIN Glucose (74-106) mg/dL POC Glucometer 69 L (50 to 500) mg/dL Lactic Acid 0.6 (0.4-2.0) Calcium (8.4-10.2) mg/dL Total Bilirubin (0.2-1.3) mg/dL AST (14-36) U/L ALT (0-35) U/L Alkaline Phosphatase (38-126) U/L Troponin I (0.000-0.034) ng/mL NT-Pro-B Natriuret Pep (0-900) pg/mL Serum Total Protein (6.3-8.2) g/dL Albumin (3.5-5.0) g/dL Procalcitonin (0.030-0.080) ng/mL Urinalys Dipstick Clnc Urine Color (YELLOW) Urine Appearance (CLEAR) Urine pH (5-6) Ur Specific Stanton (1.005-1.025) POC Urine Protein Conf (Negative) Urine Ketones (NEGATIVE) Urine Nitrite (NEGATIVE) Urine Bilirubin (NEGATIVE) Urine Urobilinogen (0-1) mg/dL Urine Leukocytes (NEGATIVE) Urine WBC (Auto) (0-5) /HPF Urine RBC (Auto) (0-2) /HPF U Hyaline Cast (Auto) (0-2) /LPF U Epithel Cells (Auto) (FEW) /HPF Urine Bacteria (Auto) (NEGATIVE) /HPF Urine RBC (0-5) Chente/ul Urine Mucus (Auto) (NEGATIVE) /HPF Ur Culture Indicated? Urine Glucose (NEGATIVE) mg/dL Influenza Type A Ag (NEGATIVE) Influenza Type B Ag (NEGATIVE) RSV (PCR) (Negative) SARS-CoV-2 (PCR) (NEGATIVE) Slides for Path Review ABO Group Rh Factor Antibody Screen (NEGATIVE) Crossmatch (COMPATIBLE) 04/17/22 04/17/22 04/17/22 Range/Units 22:13 22:13 22:13 WBC (4.0-10.5) x10^3/uL RBC (4.1-5.4) x10^6/uL Hgb (12.0-16.0) g/dL Hct (35-47) % MCV (78-100) fL MCH (26-32) pg MCHC (32-36) g/dL RDW (11.5-14.0) % Plt Count (150-450) x10^3/uL MPV (7.5-11.0) fL Gran % (36.0-66.0) % Immature Gran % (Auto) (0.00-0.4) % Nucleat RBC Rel Count (0.00-0.1) % Eos # (Auto) (0-0.5) x10^3/uL Immature Gran # (Auto) (0.00-0.03) x10^3u/L Absolute Lymphs (auto) (1.0-4.6) x10^3/uL Absolute Monos (auto) (0.0-1.3) x10^3/uL Absolute Nucleated RBC (0.00-0.01) x10^3u/L Lymphocytes % (24.0-44.0) % Monocytes % (0.0-12.0) % Eosinophils % (0.00-5.0) % Basophils % (0.0-0.4) % Absolute Granulocytes (1.4-6.9) x10^3/uL Basophils # (0-0.4) x10^3/uL Sodium 140 (137-145) mmol/L Potassium 3.0 L* (3.5-5.1) mmol/L Chloride 104 (98-107) mmol/L Carbon Dioxide 26 (22-30) mmol/L Anion Gap 12.7 (5-15) MEQ/L BUN 20 H (7-17) mg/dL Creatinine 1.22 H (0.52-1.04) mg/dL Estimated GFR 45.8 ML/MIN Glucose 71 L (74-106) mg/dL POC Glucometer (50 to 500) mg/dL Lactic Acid (0.4-2.0) Calcium 8.0 L (8.4-10.2) mg/dL Total Bilirubin 0.40 (0.2-1.3) mg/dL AST 30 (14-36) U/L ALT 16 (0-35) U/L Alkaline Phosphatase 111 (38-126) U/L Troponin I < 0.012 (0.000-0.034) ng/mL NT-Pro-B Natriuret Pep (0-900) pg/mL Serum Total Protein 6.0 L (6.3-8.2) g/dL Albumin 3.2 L (3.5-5.0) g/dL Procalcitonin 0.037 (0.030-0.080) ng/mL Urinalys Dipstick Clnc Urine Color (YELLOW) Urine Appearance (CLEAR) Urine pH (5-6) Ur Specific Stanton (1.005-1.025) POC Urine Protein Conf (Negative) Urine Ketones (NEGATIVE) Urine Nitrite (NEGATIVE) Urine Bilirubin (NEGATIVE) Urine Urobilinogen (0-1) mg/dL Urine Leukocytes (NEGATIVE) Urine WBC (Auto) (0-5) /HPF Urine RBC (Auto) (0-2) /HPF U Hyaline Cast (Auto) (0-2) /LPF U Epithel Cells (Auto) (FEW) /HPF Urine Bacteria (Auto) (NEGATIVE) /HPF Urine RBC (0-5) Chente/ul Urine Mucus (Auto) (NEGATIVE) /HPF Ur Culture Indicated? Urine Glucose (NEGATIVE) mg/dL Influenza Type A Ag (NEGATIVE) Influenza Type B Ag (NEGATIVE) RSV (PCR) (Negative) SARS-CoV-2 (PCR) (NEGATIVE) Slides for Path Review ABO Group Rh Factor Antibody Screen (NEGATIVE) Crossmatch (COMPATIBLE) 04/17/22 04/17/22 04/17/22 Range/Units 22:20 22:32 23:02 WBC (4.0-10.5) x10^3/uL RBC (4.1-5.4) x10^6/uL Hgb (12.0-16.0) g/dL Hct (35-47) % MCV (78-100) fL MCH (26-32) pg MCHC (32-36) g/dL RDW (11.5-14.0) % Plt Count (150-450) x10^3/uL MPV (7.5-11.0) fL Gran % (36.0-66.0) % Immature Gran % (Auto) (0.00-0.4) % Nucleat RBC Rel Count (0.00-0.1) % Eos # (Auto) (0-0.5) x10^3/uL Immature Gran # (Auto) (0.00-0.03) x10^3u/L Absolute Lymphs (auto) (1.0-4.6) x10^3/uL Absolute Monos (auto) (0.0-1.3) x10^3/uL Absolute Nucleated RBC (0.00-0.01) x10^3u/L Lymphocytes % (24.0-44.0) % Monocytes % (0.0-12.0) % Eosinophils % (0.00-5.0) % Basophils % (0.0-0.4) % Absolute Granulocytes (1.4-6.9) x10^3/uL Basophils # (0-0.4) x10^3/uL Sodium (137-145) mmol/L Potassium (3.5-5.1) mmol/L Chloride (98-107) mmol/L Carbon Dioxide (22-30) mmol/L Anion Gap (5-15) MEQ/L BUN (7-17) mg/dL Creatinine (0.52-1.04) mg/dL Estimated GFR ML/MIN Glucose (74-106) mg/dL POC Glucometer 103 (50 to 500) mg/dL Lactic Acid (0.4-2.0) Calcium (8.4-10.2) mg/dL Total Bilirubin (0.2-1.3) mg/dL AST (14-36) U/L ALT (0-35) U/L Alkaline Phosphatase (38-126) U/L Troponin I (0.000-0.034) ng/mL NT-Pro-B Natriuret Pep 964 H (0-900) pg/mL Serum Total Protein (6.3-8.2) g/dL Albumin (3.5-5.0) g/dL Procalcitonin (0.030-0.080) ng/mL Urinalys Dipstick Clnc Urine Color (YELLOW) Urine Appearance (CLEAR) Urine pH (5-6) Ur Specific Stanton (1.005-1.025) POC Urine Protein Conf (Negative) Urine Ketones (NEGATIVE) Urine Nitrite (NEGATIVE) Urine Bilirubin (NEGATIVE) Urine Urobilinogen (0-1) mg/dL Urine Leukocytes (NEGATIVE) Urine WBC (Auto) (0-5) /HPF Urine RBC (Auto) (0-2) /HPF U Hyaline Cast (Auto) (0-2) /LPF U Epithel Cells (Auto) (FEW) /HPF Urine Bacteria (Auto) (NEGATIVE) /HPF Urine RBC (0-5) Chente/ul Urine Mucus (Auto) (NEGATIVE) /HPF Ur Culture Indicated? Urine Glucose (NEGATIVE) mg/dL Influenza Type A Ag NEGATIVE (NEGATIVE) Influenza Type B Ag NEGATIVE (NEGATIVE) RSV (PCR) NEGATIVE (Negative) SARS-CoV-2 (PCR) NEGATIVE (NEGATIVE) Slides for Path Review ABO Group Rh Factor Antibody Screen (NEGATIVE) Crossmatch (COMPATIBLE) 04/17/22 04/17/22 04/18/22 Range/Units 23:15 23:46 00:15 WBC (4.0-10.5) x10^3/uL RBC (4.1-5.4) x10^6/uL Hgb (12.0-16.0) g/dL Hct (35-47) % MCV (78-100) fL MCH (26-32) pg MCHC (32-36) g/dL RDW (11.5-14.0) % Plt Count (150-450) x10^3/uL MPV (7.5-11.0) fL Gran % (36.0-66.0) % Immature Gran % (Auto) (0.00-0.4) % Nucleat RBC Rel Count (0.00-0.1) % Eos # (Auto) (0-0.5) x10^3/uL Immature Gran # (Auto) (0.00-0.03) x10^3u/L Absolute Lymphs (auto) (1.0-4.6) x10^3/uL Absolute Monos (auto) (0.0-1.3) x10^3/uL Absolute Nucleated RBC (0.00-0.01) x10^3u/L Lymphocytes % (24.0-44.0) % Monocytes % (0.0-12.0) % Eosinophils % (0.00-5.0) % Basophils % (0.0-0.4) % Absolute Granulocytes (1.4-6.9) x10^3/uL Basophils # (0-0.4) x10^3/uL Sodium (137-145) mmol/L Potassium (3.5-5.1) mmol/L Chloride (98-107) mmol/L Carbon Dioxide (22-30) mmol/L Anion Gap (5-15) MEQ/L BUN (7-17) mg/dL Creatinine (0.52-1.04) mg/dL Estimated GFR ML/MIN Glucose (74-106) mg/dL POC Glucometer 79 146 H (50 to 500) mg/dL Lactic Acid (0.4-2.0) Calcium (8.4-10.2) mg/dL Total Bilirubin (0.2-1.3) mg/dL AST (14-36) U/L ALT (0-35) U/L Alkaline Phosphatase (38-126) U/L Troponin I (0.000-0.034) ng/mL NT-Pro-B Natriuret Pep (0-900) pg/mL Serum Total Protein (6.3-8.2) g/dL Albumin (3.5-5.0) g/dL Procalcitonin (0.030-0.080) ng/mL Urinalys Dipstick Clnc MAIN LAB Urine Color YELLOW (YELLOW) Urine Appearance CLEAR (CLEAR) Urine pH 5.5 (5-6) Ur Specific Stanton 1.020 (1.005-1.025) POC Urine Protein Conf 30 (Negative) Urine Ketones NEGATIVE (NEGATIVE) Urine Nitrite NEGATIVE (NEGATIVE) Urine Bilirubin NEGATIVE (NEGATIVE) Urine Urobilinogen 0.2 (0-1) mg/dL Urine Leukocytes NEGATIVE (NEGATIVE) Urine WBC (Auto) 0-2 (0-5) /HPF Urine RBC (Auto) NONE (0-2) /HPF U Hyaline Cast (Auto) 6-10 (0-2) /LPF U Epithel Cells (Auto) RARE (FEW) /HPF Urine Bacteria (Auto) NONE SEEN (NEGATIVE) /HPF Urine RBC NEGATIVE (0-5) Chente/ul Urine Mucus (Auto) SLIGHT (NEGATIVE) /HPF Ur Culture Indicated? NO Urine Glucose NEGATIVE (NEGATIVE) mg/dL Influenza Type A Ag (NEGATIVE) Influenza Type B Ag (NEGATIVE) RSV (PCR) (Negative) SARS-CoV-2 (PCR) (NEGATIVE) Slides for Path Review ABO Group Rh Factor Antibody Screen (NEGATIVE) Crossmatch (COMPATIBLE) 04/18/22 04/18/22 04/18/22 Range/Units 01:18 01:18 01:55 WBC (4.0-10.5) x10^3/uL RBC (4.1-5.4) x10^6/uL Hgb (12.0-16.0) g/dL Hct (35-47) % MCV (78-100) fL MCH (26-32) pg MCHC (32-36) g/dL RDW (11.5-14.0) % Plt Count (150-450) x10^3/uL MPV (7.5-11.0) fL Gran % (36.0-66.0) % Immature Gran % (Auto) (0.00-0.4) % Nucleat RBC Rel Count (0.00-0.1) % Eos # (Auto) (0-0.5) x10^3/uL Immature Gran # (Auto) (0.00-0.03) x10^3u/L Absolute Lymphs (auto) (1.0-4.6) x10^3/uL Absolute Monos (auto) (0.0-1.3) x10^3/uL Absolute Nucleated RBC (0.00-0.01) x10^3u/L Lymphocytes % (24.0-44.0) % Monocytes % (0.0-12.0) % Eosinophils % (0.00-5.0) % Basophils % (0.0-0.4) % Absolute Granulocytes (1.4-6.9) x10^3/uL Basophils # (0-0.4) x10^3/uL Sodium (137-145) mmol/L Potassium (3.5-5.1) mmol/L Chloride (98-107) mmol/L Carbon Dioxide (22-30) mmol/L Anion Gap (5-15) MEQ/L BUN (7-17) mg/dL Creatinine (0.52-1.04) mg/dL Estimated GFR ML/MIN Glucose (74-106) mg/dL POC Glucometer 69 L (50 to 500) mg/dL Lactic Acid (0.4-2.0) Calcium (8.4-10.2) mg/dL Total Bilirubin (0.2-1.3) mg/dL AST (14-36) U/L ALT (0-35) U/L Alkaline Phosphatase (38-126) U/L Troponin I < 0.012 (0.000-0.034) ng/mL NT-Pro-B Natriuret Pep (0-900) pg/mL Serum Total Protein (6.3-8.2) g/dL Albumin (3.5-5.0) g/dL Procalcitonin (0.030-0.080) ng/mL Urinalys Dipstick Clnc Urine Color (YELLOW) Urine Appearance (CLEAR) Urine pH (5-6) Ur Specific Stanton (1.005-1.025) POC Urine Protein Conf (Negative) Urine Ketones (NEGATIVE) Urine Nitrite (NEGATIVE) Urine Bilirubin (NEGATIVE) Urine Urobilinogen (0-1) mg/dL Urine Leukocytes (NEGATIVE) Urine WBC (Auto) (0-5) /HPF Urine RBC (Auto) (0-2) /HPF U Hyaline Cast (Auto) (0-2) /LPF U Epithel Cells (Auto) (FEW) /HPF Urine Bacteria (Auto) (NEGATIVE) /HPF Urine RBC (0-5) Chente/ul Urine Mucus (Auto) (NEGATIVE) /HPF Ur Culture Indicated? Urine Glucose (NEGATIVE) mg/dL Influenza Type A Ag (NEGATIVE) Influenza Type B Ag (NEGATIVE) RSV (PCR) (Negative) SARS-CoV-2 (PCR) (NEGATIVE) Slides for Path Review ABO Group Rh Factor Antibody Screen (NEGATIVE) Crossmatch COMPATIBLE (COMPATIBLE) 04/18/22 04/18/22 04/18/22 Range/Units 03:00 03:57 04:42 WBC (4.0-10.5) x10^3/uL RBC (4.1-5.4) x10^6/uL Hgb (12.0-16.0) g/dL Hct (35-47) % MCV (78-100) fL MCH (26-32) pg MCHC (32-36) g/dL RDW (11.5-14.0) % Plt Count (150-450) x10^3/uL MPV (7.5-11.0) fL Gran % (36.0-66.0) % Immature Gran % (Auto) (0.00-0.4) % Nucleat RBC Rel Count (0.00-0.1) % Eos # (Auto) (0-0.5) x10^3/uL Immature Gran # (Auto) (0.00-0.03) x10^3u/L Absolute Lymphs (auto) (1.0-4.6) x10^3/uL Absolute Monos (auto) (0.0-1.3) x10^3/uL Absolute Nucleated RBC (0.00-0.01) x10^3u/L Lymphocytes % (24.0-44.0) % Monocytes % (0.0-12.0) % Eosinophils % (0.00-5.0) % Basophils % (0.0-0.4) % Absolute Granulocytes (1.4-6.9) x10^3/uL Basophils # (0-0.4) x10^3/uL Sodium (137-145) mmol/L Potassium (3.5-5.1) mmol/L Chloride (98-107) mmol/L Carbon Dioxide (22-30) mmol/L Anion Gap (5-15) MEQ/L BUN (7-17) mg/dL Creatinine (0.52-1.04) mg/dL Estimated GFR ML/MIN Glucose (74-106) mg/dL POC Glucometer 132 H 155 H (50 to 500) mg/dL Lactic Acid (0.4-2.0) Calcium (8.4-10.2) mg/dL Total Bilirubin (0.2-1.3) mg/dL AST (14-36) U/L ALT (0-35) U/L Alkaline Phosphatase (38-126) U/L Troponin I < 0.012 (0.000-0.034) ng/mL NT-Pro-B Natriuret Pep (0-900) pg/mL Serum Total Protein (6.3-8.2) g/dL Albumin (3.5-5.0) g/dL Procalcitonin (0.030-0.080) ng/mL Urinalys Dipstick Clnc Urine Color (YELLOW) Urine Appearance (CLEAR) Urine pH (5-6) Ur Specific Stanton (1.005-1.025) POC Urine Protein Conf (Negative) Urine Ketones (NEGATIVE) Urine Nitrite (NEGATIVE) Urine Bilirubin (NEGATIVE) Urine Urobilinogen (0-1) mg/dL Urine Leukocytes (NEGATIVE) Urine WBC (Auto) (0-5) /HPF Urine RBC (Auto) (0-2) /HPF U Hyaline Cast (Auto) (0-2) /LPF U Epithel Cells (Auto) (FEW) /HPF Urine Bacteria (Auto) (NEGATIVE) /HPF Urine RBC (0-5) Chente/ul Urine Mucus (Auto) (NEGATIVE) /HPF Ur Culture Indicated? Urine Glucose (NEGATIVE) mg/dL Influenza Type A Ag (NEGATIVE) Influenza Type B Ag (NEGATIVE) RSV (PCR) (Negative) SARS-CoV-2 (PCR) (NEGATIVE) Slides for Path Review ABO Group Rh Factor Antibody Screen (NEGATIVE) Crossmatch (COMPATIBLE) 04/18/22 04/18/22 04/18/22 Range/Units 04:42 04:42 04:57 WBC 7.2 (4.0-10.5) x10^3/uL RBC 3.31 L (4.1-5.4) x10^6/uL Hgb 8.1 L (12.0-16.0) g/dL Hct 28.1 L (35-47) % MCV 84.9 (78-100) fL MCH 24.5 L (26-32) pg MCHC 28.8 L (32-36) g/dL RDW 17.1 H (11.5-14.0) % Plt Count 249 (150-450) x10^3/uL MPV 10.0 (7.5-11.0) fL Gran % 70.8 H (36.0-66.0) % Immature Gran % (Auto) 0.1 (0.00-0.4) % Nucleat RBC Rel Count 0.0 (0.00-0.1) % Eos # (Auto) 0.03 (0-0.5) x10^3/uL Immature Gran # (Auto) 0.01 (0.00-0.03) x10^3u/L Absolute Lymphs (auto) 1.51 (1.0-4.6) x10^3/uL Absolute Monos (auto) 0.54 (0.0-1.3) x10^3/uL Absolute Nucleated RBC 0.00 (0.00-0.01) x10^3u/L Lymphocytes % 20.9 L (24.0-44.0) % Monocytes % 7.5 (0.0-12.0) % Eosinophils % 0.4 (0.00-5.0) % Basophils % 0.3 (0.0-0.4) % Absolute Granulocytes 5.11 (1.4-6.9) x10^3/uL Basophils # 0.02 (0-0.4) x10^3/uL Sodium 138 (137-145) mmol/L Potassium 3.6 (3.5-5.1) mmol/L Chloride 102 (98-107) mmol/L Carbon Dioxide 27 (22-30) mmol/L Anion Gap 12.5 (5-15) MEQ/L BUN 19 H (7-17) mg/dL Creatinine 1.22 H (0.52-1.04) mg/dL Estimated GFR 45.8 ML/MIN Glucose 168 H (74-106) mg/dL POC Glucometer 134 H (50 to 500) mg/dL Lactic Acid (0.4-2.0) Calcium 7.9 L (8.4-10.2) mg/dL Total Bilirubin 0.50 (0.2-1.3) mg/dL AST 27 (14-36) U/L ALT 16 (0-35) U/L Alkaline Phosphatase 116 (38-126) U/L Troponin I (0.000-0.034) ng/mL NT-Pro-B Natriuret Pep (0-900) pg/mL Serum Total Protein 6.4 (6.3-8.2) g/dL Albumin 3.3 L (3.5-5.0) g/dL Procalcitonin (0.030-0.080) ng/mL Urinalys Dipstick Clnc Urine Color (YELLOW) Urine Appearance (CLEAR) Urine pH (5-6) Ur Specific Stanton (1.005-1.025) POC Urine Protein Conf (Negative) Urine Ketones (NEGATIVE) Urine Nitrite (NEGATIVE) Urine Bilirubin (NEGATIVE) Urine Urobilinogen (0-1) mg/dL Urine Leukocytes (NEGATIVE) Urine WBC (Auto) (0-5) /HPF Urine RBC (Auto) (0-2) /HPF U Hyaline Cast (Auto) (0-2) /LPF U Epithel Cells (Auto) (FEW) /HPF Urine Bacteria (Auto) (NEGATIVE) /HPF Urine RBC (0-5) Chente/ul Urine Mucus (Auto) (NEGATIVE) /HPF Ur Culture Indicated? Urine Glucose (NEGATIVE) mg/dL Influenza Type A Ag (NEGATIVE) Influenza Type B Ag (NEGATIVE) RSV (PCR) (Negative) SARS-CoV-2 (PCR) (NEGATIVE) Slides for Path Review YES ABO Group Rh Factor Antibody Screen (NEGATIVE) Crossmatch (COMPATIBLE) 04/18/22 04/18/22 Range/Units 06:00 07:11 WBC (4.0-10.5) x10^3/uL RBC (4.1-5.4) x10^6/uL Hgb (12.0-16.0) g/dL Hct (35-47) % MCV (78-100) fL MCH (26-32) pg MCHC (32-36) g/dL RDW (11.5-14.0) % Plt Count (150-450) x10^3/uL MPV (7.5-11.0) fL Gran % (36.0-66.0) % Immature Gran % (Auto) (0.00-0.4) % Nucleat RBC Rel Count (0.00-0.1) % Eos # (Auto) (0-0.5) x10^3/uL Immature Gran # (Auto) (0.00-0.03) x10^3u/L Absolute Lymphs (auto) (1.0-4.6) x10^3/uL Absolute Monos (auto) (0.0-1.3) x10^3/uL Absolute Nucleated RBC (0.00-0.01) x10^3u/L Lymphocytes % (24.0-44.0) % Monocytes % (0.0-12.0) % Eosinophils % (0.00-5.0) % Basophils % (0.0-0.4) % Absolute Granulocytes (1.4-6.9) x10^3/uL Basophils # (0-0.4) x10^3/uL Sodium (137-145) mmol/L Potassium (3.5-5.1) mmol/L Chloride (98-107) mmol/L Carbon Dioxide (22-30) mmol/L Anion Gap (5-15) MEQ/L BUN (7-17) mg/dL Creatinine (0.52-1.04) mg/dL Estimated GFR ML/MIN Glucose (74-106) mg/dL POC Glucometer 125 H 148 H (50 to 500) mg/dL Lactic Acid (0.4-2.0) Calcium (8.4-10.2) mg/dL Total Bilirubin (0.2-1.3) mg/dL AST (14-36) U/L ALT (0-35) U/L Alkaline Phosphatase (38-126) U/L Troponin I (0.000-0.034) ng/mL NT-Pro-B Natriuret Pep (0-900) pg/mL Serum Total Protein (6.3-8.2) g/dL Albumin (3.5-5.0) g/dL Procalcitonin (0.030-0.080) ng/mL Urinalys Dipstick Clnc Urine Color (YELLOW) Urine Appearance (CLEAR) Urine pH (5-6) Ur Specific Stanton (1.005-1.025) POC Urine Protein Conf (Negative) Urine Ketones (NEGATIVE) Urine Nitrite (NEGATIVE) Urine Bilirubin (NEGATIVE) Urine Urobilinogen (0-1) mg/dL Urine Leukocytes (NEGATIVE) Urine WBC (Auto) (0-5) /HPF Urine RBC (Auto) (0-2) /HPF U Hyaline Cast (Auto) (0-2) /LPF U Epithel Cells (Auto) (FEW) /HPF Urine Bacteria (Auto) (NEGATIVE) /HPF Urine RBC (0-5) Chente/ul Urine Mucus (Auto) (NEGATIVE) /HPF Ur Culture Indicated? Urine Glucose (NEGATIVE) mg/dL Influenza Type A Ag (NEGATIVE) Influenza Type B Ag (NEGATIVE) RSV (PCR) (Negative) SARS-CoV-2 (PCR) (NEGATIVE) Slides for Path Review ABO Group Rh Factor Antibody Screen (NEGATIVE) Crossmatch (COMPATIBLE) Accuchecks Date 04/18/22 Date 04/18/22 Date 04/18/22 Date 04/18/22 Date 04/18/22 Date 04/18/22 Time 07:19 Time 06:00 Time 05:00 Time 04:00 Time 03:00 Time 02:00 - Radiology Impressions Radiology Exams & Impressions: Radiology Procedures Category Date Time Status CHEST 1 VIEW (PORTABLE) Stat Exams 04/17/22 21:47 Taken Assessment/Plan (1) Type 2 diabetes mellitus Current Visit: Yes Status: Acute Qualifiers: Diabetes mellitus penitentiary insulin use: unspecified intermediate accountant insulin use status Diabetes mellitus complication status: with hypoglycemia Diabetes mellitus complication detail: with coma Qualified Code(s): E11.641 - Type 2 diabetes mellitus with hypoglycemia with coma Assessment & Plan: Chief Complaint Diagnosis Hypoglycemia, hypokalemia,anemia, generalized weakness Allergies Allergy/AdvReac Type Severity Reaction Status Date / Time No Known Drug Allergies Allergy Unverified 04/18/22 00:46 Vital Signs (Last 24 hours) Temp Pulse Resp BP Pulse Ox 04/18/22 06:42 96 04/18/22 04:00 97.5 F 64 20 125/57 100 04/18/22 03:00 61 18 98 04/18/22 00:55 97.6 F 63 16 110/49 100 04/17/22 23:51 62 18 108/55 04/17/22 22:27 60 16 94/55 97 04/17/22 21:18 97.9 F 73 16 111/48 96 Home Medications Medication Instructions Recorded Confirmed Last Taken Type Allopurinol 100 mg [Zyloprim 100 mg PO DAILY 04/17/22 04/17/22 04/17/22 10:00 History 100 mg] Amitriptyline HCl 10 mg [Elavil 10 mg PO DAILY 04/17/22 04/17/22 04/17/22 10:00 History 10 mg] Aspirin EC 81 mg [Ecotrin 81 81 mg PO DAILY 04/17/22 04/17/22 04/17/22 10:00 History mg] Atorvastatin Calcium 80 mg PO QHS 04/17/22 04/17/22 04/16/22 22:00 History Azelastine HCl 1 drop OP DAILY 04/17/22 04/17/22 04/17/22 10:00 History Balsalazide Disodium 750 mg PO QHS 04/17/22 04/17/22 04/16/22 22:00 History Calcium Carb, Citrate/Vit D3 1 tab PO DAILY 0904/17/22 04/17/22 10:00 History [Calcium + D3 ER Tablet] Ciclopirox/Skin Cleanser No.28 1 applic TOP Q 04/17/22 04/17/22 04/16/22 22:00 History [Ciclodan 0.77% Cream Kit] Collagenase Oint [Santyl 1 applic TOP DAILY 04/17/22 04/17/22 04/17/22 10:00 History OINTMENT] Divalproex Sodium [Depakote] 250 mg PO DAILY 04/17/22 04/17/22 04/17/22 10:00 History Divalproex Sodium [Depakote] 500 mg PO EVENING MEAL 04/17/22 04/17/22 04/16/22 18:00 History Duloxetine HCl 30 mg PO DAILY 04/17/22 04/17/22 04/17/22 10:00 History Duloxetine HCl [Cymbalta] 60 mg PO DAILY 04/17/22 04/17/22 04/17/22 10:00 History Furosemide 80 mg PO DAILY 04/17/22 04/17/22 04/17/22 08:00 History Furosemide 40 mg [Lasix 40 40 mg PO LUNCH 04/17/22 04/17/22 04/17/22 14:00 History MG] Insulin Detemir [Levemir] 24 units SQ Q 04/17/22 04/17/22 04/16/22 22:00 History Insulin Detemir [Levemir] 30 unit SQ QA 04/17/22 04/17/22 04/17/22 08:00 History Insulin Lispro [Admelog Solostar] 1 unit SQ 04/17/22 04/17/22 04/17/22 18:00 History Levothyroxine Sodium 25 mcg PO DAILY 04/17/22 04/17/22 04/17/22 08:00 History [Levothyroxine] Lipase/Protease/Amylase [Elvis Portillo 24,000 units PO AC 04/17/22 04/17/22 04/17/22 12:00 History 24,000 Unit Capsule] Metoprolol Tartrate 25 mg PO BID 04/17/22 04/17/22 04/17/22 10:00 History Nitroglycerin 0.4 mg SL 04/17/22 04/17/22 Unknown History Oxybutynin Chloride 5 mg PO BID 04/17/22 04/17/22 04/17/22 10:00 History Pramipexole Di-HCl [Pramipexole 1 mg PO TID 04/17/22 04/17/22 04/17/22 12:00 History Dihydrochloride] Rivaroxaban [Xarelto] 15 mg PO EVENING MEAL 04/17/22 04/18/22 04/16/22 18:00 History Vitamin B Complex 1 tab PO DAILY 04/17/22 04/17/22 04/17/22 10:00 History Melatonin 10 mg PO QHS 04/18/22 04/18/22 04/16/22 22:00 History Triamcinolone 0.1% Lotion 1 applic TOP QHS 04/18/22 04/18/22 04/16/22 22:00 History [Kenalog 0.1% Lotion] Current Medications Generic Name Dose Route Start Last Admin Trade Name Freq PRN Reason Stop Dose Admin Acetaminophen 650 mg 04/18/22 00:38 Acetaminophen 325 Mg Tablet PO 05/18/22 00:37 Q4H PRN PRN PAIN AND/OR FEVER Dextrose 250 mls @ 30 mls/hr 04/17/22 22:30 04/18/22 03:14 Dextrose 10% 250 Ml IV 05/17/22 22:29 50 mls/hr .Q8H20M CORNELIA Administration Pantoprazole Sodium 40 mg 04/18/22 10:00 Pantoprazole 40 Mg Vial IV 05/18/22 09:59 Q24H10 CORNELIA Discontinued Medications Generic Name Dose Route Start Last Admin Trade Name Frelidia PRN Reason Stop Dose Admin Albuterol/Ipratropium 3 ml 04/18/22 00:38 Ipratropium/Albuterol Sulfate 3 Ml Ampul.Neb IH 05/18/22 00:37 Q4HPRN PRN SHORTNESS OF BREATH/WHEEZING Dextrose Confirm 04/17/22 21:26 Dextrose 50%-Water 50 Ml Abboject Administered 04/17/22 21:27 Dose 50 ml IV .STK-MED ONE Dextrose 25 ml 04/17/22 22:10 04/17/22 21:30 Dextrose 50%-Water 50 Ml Abboject IV 04/17/22 22:11 25 ml STAT ONE Administration Dextrose 25 ml 04/17/22 22:11 04/17/22 22:12 Dextrose 50%-Water 50 Ml Abboject IV 04/17/22 22:12 25 ml STAT ONE Administration Sodium Chloride 1,000 mls @ 100 mls/hr 04/17/22 22:00 04/17/22 23:32 Sodium Chloride 0.9% 1000 Ml IV 05/17/22 21:59 0 mls/hr .Q10H CORNELIA Infusion Sodium Chloride Confirm 04/17/22 21:51 Sodium Chloride 0.9% 1000 Ml Administered 04/17/22 21:52 Dose 1,000 mls @ ud .ROUTE .STK-MED ONE Ondansetron HCl 4 mg 04/17/22 21:47 04/17/22 21:52 Ondansetron Hcl 4 Mg/2 Ml Vial IV 04/17/22 21:48 4 mg STAT ONE Administration Ondansetron HCl Confirm 04/17/22 21:51 Ondansetron Hcl 4 Mg/2 Ml Vial Administered 04/17/22 21:52 Dose 4 mg .ROUTE .STK-MED ONE Potassium Chloride 40 meq 04/17/22 22:54 04/17/22 22:58 Potassium Chloride Tab 10 Meq Tab PO 04/17/22 22:55 40 meq STAT ONE Administration Potassium Chloride Confirm 04/17/22 22:56 Potassium Chloride Tab 10 Meq Tab Administered 04/17/22 22:57 Dose 40 meq PO .STK-MED ONE Intake & Output (Last 24 hours) 04/15/22 04/16/22 04/17/22 04/18/22 11:59 11:59 11:59 11:59 Intake Total 203 Output Total 300 Balance -97 Weight 131.5 kg Microbiology Results (Last 24 hours) 04/17/22 22:13 Blood Blood Culture Gram Stain - Pending 04/17/22 22:13 Blood Blood Culture - Pending 04/17/22 22:13 Blood Blood Culture Gram Stain - Pending 04/17/22 22:13 Blood Blood Culture - Pending Laboratory Results (Last 24 hours) 04/18/22 04/18/22 04/18/22 07:11 06:00 04:57 WBC RBC Hgb Hct MCV MCH MCHC RDW Plt Count MPV Gran % Immature Gran % (Auto) Nucleat RBC Rel Count Eos # (Auto) Immature Gran # (Auto) Absolute Lymphs (auto) Absolute Monos (auto) Absolute Nucleated RBC Lymphocytes % Monocytes % Eosinophils % Basophils % Absolute Granulocytes Basophils # Sodium Potassium Chloride Carbon Dioxide Anion Gap BUN Creatinine Estimated GFR Glucose POC Glucometer 148 H 125 H 134 H Lactic Acid Calcium Total Bilirubin AST ALT Alkaline Phosphatase Troponin I NT-Pro-B Natriuret Pep Serum Total Protein Albumin Procalcitonin Urinalys Dipstick Clnc Urine Color Urine Appearance Urine pH Ur Specific Stanton POC Urine Protein Conf Urine Ketones Urine Nitrite Urine Bilirubin Urine Urobilinogen Urine Leukocytes Urine WBC (Auto) Urine RBC (Auto) U Hyaline Cast (Auto) U Epithel Cells (Auto) Urine Bacteria (Auto) Urine RBC Urine Mucus (Auto) Ur Culture Indicated? Urine Glucose Influenza Type A Ag Influenza Type B Ag RSV (PCR) SARS-CoV-2 (PCR) Slides for Path Review ABO Group Rh Factor Antibody Screen Crossmatch 04/18/22 04/18/22 04/18/22 04:42 04:42 04:42 WBC 7.2 RBC 3.31 L Hgb 8.1 L Hct 28.1 L MCV 84.9 MCH 24.5 L MCHC 28.8 L RDW 17.1 H Plt Count 249 MPV 10.0 Gran % 70.8 H Immature Gran % (Auto) 0.1 Nucleat RBC Rel Count 0.0 Eos # (Auto) 0.03 Immature Gran # (Auto) 0.01 Absolute Lymphs (auto) 1.51 Absolute Monos (auto) 0.54 Absolute Nucleated RBC 0.00 Lymphocytes % 20.9 L Monocytes % 7.5 Eosinophils % 0.4 Basophils % 0.3 Absolute Granulocytes 5.11 Basophils # 0.02 Sodium 138 Potassium 3.6 Chloride 102 Carbon Dioxide 27 Anion Gap 12.5 BUN 19 H Creatinine 1.22 H Estimated GFR 45.8 Glucose 168 H POC Glucometer Lactic Acid Calcium 7.9 L Total Bilirubin 0.50 AST 27 ALT 16 Alkaline Phosphatase 116 Troponin I < 0.012 NT-Pro-B Natriuret Pep Serum Total Protein 6.4 Albumin 3.3 L Procalcitonin Urinalys Dipstick Clnc Urine Color Urine Appearance Urine pH Ur Specific Stanton POC Urine Protein Conf Urine Ketones Urine Nitrite Urine Bilirubin Urine Urobilinogen Urine Leukocytes Urine WBC (Auto) Urine RBC (Auto) U Hyaline Cast (Auto) U Epithel Cells (Auto) Urine Bacteria (Auto) Urine RBC Urine Mucus (Auto) Ur Culture Indicated? Urine Glucose Influenza Type A Ag Influenza Type B Ag RSV (PCR) SARS-CoV-2 (PCR) Slides for Path Review YES ABO Group Rh Factor Antibody Screen Crossmatch 04/18/22 04/18/22 04/18/22 03:57 03:00 01:55 WBC RBC Hgb Hct MCV MCH MCHC RDW Plt Count MPV Gran % Immature Gran % (Auto) Nucleat RBC Rel Count Eos # (Auto) Immature Gran # (Auto) Absolute Lymphs (auto) Absolute Monos (auto) Absolute Nucleated RBC Lymphocytes % Monocytes % Eosinophils % Basophils % Absolute Granulocytes Basophils # Sodium Potassium Chloride Carbon Dioxide Anion Gap BUN Creatinine Estimated GFR Glucose POC Glucometer 155 H 132 H 69 L Lactic Acid Calcium Total Bilirubin AST ALT Alkaline Phosphatase Troponin I NT-Pro-B Natriuret Pep Serum Total Protein Albumin Procalcitonin Urinalys Dipstick Clnc Urine Color Urine Appearance Urine pH Ur Specific Stanton POC Urine Protein Conf Urine Ketones Urine Nitrite Urine Bilirubin Urine Urobilinogen Urine Leukocytes Urine WBC (Auto) Urine RBC (Auto) U Hyaline Cast (Auto) U Epithel Cells (Auto) Urine Bacteria (Auto) Urine RBC Urine Mucus (Auto) Ur Culture Indicated? Urine Glucose Influenza Type A Ag Influenza Type B Ag RSV (PCR) SARS-CoV-2 (PCR) Slides for Path Review ABO Group Rh Factor Antibody Screen Crossmatch 04/18/22 04/18/22 04/18/22 01:18 01:18 00:15 WBC RBC Hgb Hct MCV MCH MCHC RDW Plt Count MPV Gran % Immature Gran % (Auto) Nucleat RBC Rel Count Eos # (Auto) Immature Gran # (Auto) Absolute Lymphs (auto) Absolute Monos (auto) Absolute Nucleated RBC Lymphocytes % Monocytes % Eosinophils % Basophils % Absolute Granulocytes Basophils # Sodium Potassium Chloride Carbon Dioxide Anion Gap BUN Creatinine Estimated GFR Glucose POC Glucometer 146 H Lactic Acid Calcium Total Bilirubin AST ALT Alkaline Phosphatase Troponin I < 0.012 NT-Pro-B Natriuret Pep Serum Total Protein Albumin Procalcitonin Urinalys Dipstick Clnc Urine Color Urine Appearance Urine pH Ur Specific Stanton POC Urine Protein Conf Urine Ketones Urine Nitrite Urine Bilirubin Urine Urobilinogen Urine Leukocytes Urine WBC (Auto) Urine RBC (Auto) U Hyaline Cast (Auto) U Epithel Cells (Auto) Urine Bacteria (Auto) Urine RBC Urine Mucus (Auto) Ur Culture Indicated? Urine Glucose Influenza Type A Ag Influenza Type B Ag RSV (PCR) SARS-CoV-2 (PCR) Slides for Path Review ABO Group Rh Factor Antibody Screen Crossmatch COMPATIBLE 04/17/22 04/17/22 04/17/22 23:46 23:15 23:02 WBC RBC Hgb Hct MCV MCH MCHC RDW Plt Count MPV Gran % Immature Gran % (Auto) Nucleat RBC Rel Count Eos # (Auto) Immature Gran # (Auto) Absolute Lymphs (auto) Absolute Monos (auto) Absolute Nucleated RBC Lymphocytes % Monocytes % Eosinophils % Basophils % Absolute Granulocytes Basophils # Sodium Potassium Chloride Carbon Dioxide Anion Gap BUN Creatinine Estimated GFR Glucose POC Glucometer 79 Lactic Acid Calcium Total Bilirubin AST ALT Alkaline Phosphatase Troponin I NT-Pro-B Natriuret Pep Serum Total Protein Albumin Procalcitonin Urinalys Dipstick Clnc MAIN LAB Urine Color YELLOW Urine Appearance CLEAR Urine pH 5.5 Ur Specific Stanton 1.020 POC Urine Protein Conf 30 Urine Ketones NEGATIVE Urine Nitrite NEGATIVE Urine Bilirubin NEGATIVE Urine Urobilinogen 0.2 Urine Leukocytes NEGATIVE Urine WBC (Auto) 0-2 Urine RBC (Auto) NONE U Hyaline Cast (Auto) 6-10 U Epithel Cells (Auto) RARE Urine Bacteria (Auto) NONE SEEN Urine RBC NEGATIVE Urine Mucus (Auto) SLIGHT Ur Culture Indicated? NO Urine Glucose NEGATIVE Influenza Type A Ag NEGATIVE Influenza Type B Ag NEGATIVE RSV (PCR) NEGATIVE SARS-CoV-2 (PCR) NEGATIVE Slides for Path Review ABO Group Rh Factor Antibody Screen Crossmatch 04/17/22 04/17/22 04/17/22 22:32 22:20 22:13 WBC RBC Hgb Hct MCV MCH MCHC RDW Plt Count MPV Gran % Immature Gran % (Auto) Nucleat RBC Rel Count Eos # (Auto) Immature Gran # (Auto) Absolute Lymphs (auto) Absolute Monos (auto) Absolute Nucleated RBC Lymphocytes % Monocytes % Eosinophils % Basophils % Absolute Granulocytes Basophils # Sodium Potassium Chloride Carbon Dioxide Anion Gap BUN Creatinine Estimated GFR Glucose POC Glucometer 103 Lactic Acid Calcium Total Bilirubin AST ALT Alkaline Phosphatase Troponin I NT-Pro-B Natriuret Pep 964 H Serum Total Protein Albumin Procalcitonin 0.037 Urinalys Dipstick Clnc Urine Color Urine Appearance Urine pH Ur Specific Stanton POC Urine Protein Conf Urine Ketones Urine Nitrite Urine Bilirubin Urine Urobilinogen Urine Leukocytes Urine WBC (Auto) Urine RBC (Auto) U Hyaline Cast (Auto) U Epithel Cells (Auto) Urine Bacteria (Auto) Urine RBC Urine Mucus (Auto) Ur Culture Indicated? Urine Glucose Influenza Type A Ag Influenza Type B Ag RSV (PCR) SARS-CoV-2 (PCR) Slides for Path Review ABO Group Rh Factor Antibody Screen Crossmatch 04/17/22 04/17/22 04/17/22 22:13 22:13 22:13 WBC 7.7 RBC 3.27 L Hgb 7.9 L Hct 27.2 L MCV 83.2 MCH 24.2 L MCHC 29.0 L RDW 16.6 H Plt Count 244 MPV 9.4 Gran % 82.8 H Immature Gran % (Auto) 0.1 Nucleat RBC Rel Count 0.0 Eos # (Auto) 0.03 Immature Gran # (Auto) 0.01 Absolute Lymphs (auto) 0.75 L Absolute Monos (auto) 0.52 Absolute Nucleated RBC 0.00 Lymphocytes % 9.8 L Monocytes % 6.8 Eosinophils % 0.4 Basophils % 0.1 Absolute Granulocytes 6.33 Basophils # 0.01 Sodium 140 Potassium 3.0 L* Chloride 104 Carbon Dioxide 26 Anion Gap 12.7 BUN 20 H Creatinine 1.22 H Estimated GFR 45.8 Glucose 71 L POC Glucometer Lactic Acid Calcium 8.0 L Total Bilirubin 0.40 AST 30 ALT 16 Alkaline Phosphatase 111 Troponin I < 0.012 NT-Pro-B Natriuret Pep Serum Total Protein 6.0 L Albumin 3.2 L Procalcitonin Urinalys Dipstick Clnc Urine Color Urine Appearance Urine pH Ur Specific Stanton POC Urine Protein Conf Urine Ketones Urine Nitrite Urine Bilirubin Urine Urobilinogen Urine Leukocytes Urine WBC (Auto) Urine RBC (Auto) U Hyaline Cast (Auto) U Epithel Cells (Auto) Urine Bacteria (Auto) Urine RBC Urine Mucus (Auto) Ur Culture Indicated? Urine Glucose Influenza Type A Ag Influenza Type B Ag RSV (PCR) SARS-CoV-2 (PCR) Slides for Path Review ABO Group Rh Factor Antibody Screen Crossmatch 04/17/22 04/17/22 04/17/22 22:10 22:03 21:39 WBC RBC Hgb Hct MCV MCH MCHC RDW Plt Count MPV Gran % Immature Gran % (Auto) Nucleat RBC Rel Count Eos # (Auto) Immature Gran # (Auto) Absolute Lymphs (auto) Absolute Monos (auto) Absolute Nucleated RBC Lymphocytes % Monocytes % Eosinophils % Basophils % Absolute Granulocytes Basophils # Sodium Potassium Chloride Carbon Dioxide Anion Gap BUN Creatinine Estimated GFR Glucose POC Glucometer 69 L 92 Lactic Acid 0.6 Calcium Total Bilirubin AST ALT Alkaline Phosphatase Troponin I NT-Pro-B Natriuret Pep Serum Total Protein Albumin Procalcitonin Urinalys Dipstick Clnc Urine Color Urine Appearance Urine pH Ur Specific Stanton POC Urine Protein Conf Urine Ketones Urine Nitrite Urine Bilirubin Urine Urobilinogen Urine Leukocytes Urine WBC (Auto) Urine RBC (Auto) U Hyaline Cast (Auto) U Epithel Cells (Auto) Urine Bacteria (Auto) Urine RBC Urine Mucus (Auto) Ur Culture Indicated? Urine Glucose Influenza Type A Ag Influenza Type B Ag RSV (PCR) SARS-CoV-2 (PCR) Slides for Path Review ABO Group Rh Factor Antibody Screen Crossmatch 04/17/22 04/17/22 21:25 01:18 WBC RBC Hgb Hct MCV MCH MCHC RDW Plt Count MPV Gran % Immature Gran % (Auto) Nucleat RBC Rel Count Eos # (Auto) Immature Gran # (Auto) Absolute Lymphs (auto) Absolute Monos (auto) Absolute Nucleated RBC Lymphocytes % Monocytes % Eosinophils % Basophils % Absolute Granulocytes Basophils # Sodium Potassium Chloride Carbon Dioxide Anion Gap BUN Creatinine Estimated GFR Glucose POC Glucometer 38 L* Lactic Acid Calcium Total Bilirubin AST ALT Alkaline Phosphatase Troponin I NT-Pro-B Natriuret Pep Serum Total Protein Albumin Procalcitonin Urinalys Dipstick Clnc Urine Color Urine Appearance Urine pH Ur Specific Stanton POC Urine Protein Conf Urine Ketones Urine Nitrite Urine Bilirubin Urine Urobilinogen Urine Leukocytes Urine WBC (Auto) Urine RBC (Auto) U Hyaline Cast (Auto) U Epithel Cells (Auto) Urine Bacteria (Auto) Urine RBC Urine Mucus (Auto) Ur Culture Indicated? Urine Glucose Influenza Type A Ag Influenza Type B Ag RSV (PCR) SARS-CoV-2 (PCR) Slides for Path Review ABO Group O Rh Factor POSITIVE Antibody Screen NEGATIVE Crossmatch COMPATIBLE Orders (Last 24 hours) Category Date Time Status Bedrest ROUTINE Activity 04/18/22 00:38 Active Up With Assistance ROUTINE Activity 04/18/22 00:38 Active Code Status Order ROUTINE Care 04/18/22 00:38 Active EKG-ER Only STAT Care 04/17/22 21:47 Completed Fall Protocol Q1H Care 04/18/22 00:38 Active Kim [Catheter-Kirwin Kim] STAT Care 04/17/22 23:32 Completed IV Care Q6H Care 04/18/22 00:38 Active IV Insertion STAT Care 04/17/22 21:47 Completed NPO (ED) STAT Care 04/17/22 21:47 Completed Neuro Checks Q1H Care 04/18/22 00:38 Active POCT Glucose Check Q1H Care 04/18/22 00:[address] in Observation ROUTINE Care 04/18/22 00:38 Active Gurdeep Spears Apply ROUTINE Care 04/18/22 00:38 Active Telemetry q6h Care 04/18/22 02:00 Active Weight,Daily 0600 Care 04/18/22 00:38 Active Infection Control Consult ROUTINE Cons 04/18/22 01:21 Active No Bake Molder/Discharge Plan ROUTINE Cons 04/18/22 01:21 Active Consistent Carbohydrate Diet 1800 Calorie Diet 04/18/22 Breakfast Active Nutritional Admission Screen ONCE Diet 04/18/22 01:21 Active CHEST 1 VIEW (PORTABLE) Stat Exams 04/17/22 21:47 Taken BLOOD CULTURE Stat Lab 04/17/22 22:13 Received BNP [NT PRO BNP] Stat Lab 04/17/22 22:20 Completed CBC W DIFF AM.LAB Lab 04/18/22 04:42 Completed CBC W DIFF Stat Lab 04/17/22 22:13 Completed CMP AM.LAB Lab 04/18/22 04:42 Completed CMP Stat Lab 04/17/22 22:13 Completed COVID/FLU/RSV Panel Stat Lab 04/17/22 23:02 Completed Lactic Acid Stat Lab 04/17/22 22:10 Completed Occult Blood Stool [FECAL OCCULT BLOOD -DIAGNOSTIC] Lab 04/17/22 23:45 Ordered Stat POCT GLUCOSE Stat Lab 04/17/22 21:25 Completed POCT GLUCOSE Stat Lab 04/17/22 21:39 Completed POCT GLUCOSE Stat Lab 04/17/22 22:03 Completed POCT GLUCOSE Stat Lab 04/17/22 22:32 Completed POCT GLUCOSE Stat Lab 04/17/22 23:15 Completed POCT GLUCOSE Stat Lab 04/18/22 00:15 Completed POCT GLUCOSE Stat Lab 04/18/22 01:55 Completed POCT GLUCOSE Stat Lab 04/18/22 03:00 Completed POCT GLUCOSE Stat Lab 04/18/22 03:57 Completed POCT GLUCOSE Stat Lab 04/18/22 04:57 Completed POCT GLUCOSE Stat Lab 04/18/22 06:00 Completed POCT GLUCOSE Stat Lab 04/18/22 07:10 Received POCT GLUCOSE Stat Lab 04/18/22 07:11 Completed PROCALCITONIN Stat Lab 04/17/22 22:13 Completed TROPONIN Q4H Lab 04/17/22 22:13 Completed TROPONIN Q4H Lab 04/18/22 01:18 Completed TROPONIN Q4H Lab 04/18/22 04:42 Completed UA W/RFX CULTURE Stat Lab 04/17/22 23:46 Completed Acetaminophen 325 mg [Tylenol 325 mg] Med 04/18/22 00:38 Active 650 mg PO Q4H PRN PRN Albuterol/Ipratropium 3ml Neb* [DUONEB 0.5-3 MG/3 ml Med 04/18/22 00:38 Discontinued Neb] 3 ml IH Q4HPRN PRN Dextrose 10%-Water 250 ML [Dextrose 10% 250 ml] 250 ml Med 04/17/22 22:30 Active IV 30 mls/hr Dextrose 50%-Water Syringe [D50W 50 ml Abboject] Med 04/17/22 22:10 Discontinued 25 ml IV STAT ONE Dextrose 50%-Water Syringe [D50W 50 ml Abboject] Med 04/17/22 22:11 Discontinued 25 ml IV STAT ONE Dextrose 50%-Water Syringe [D50W 50 ml Abboject] Med 04/17/22 21:26 Discontinued 50 ml IV .STK-MED ONE Flu Vacc [id number](65Yr Up)/Pf [Fluzone High-Dose Quad Med 04/18/22 10:00 Once ] 240 mcg IM .ONCE ONE NaCl 0.9% 1000 ml [Sodium Chloride 0.9% 1000 ML] 1,000 Med 04/17/22 21:51 Discontinued ml .ROUTE UD NaCl 0.9% 1000 ml [Sodium Chloride 0.9% 1000 ML] 1,000 Med 04/17/22 22:00 Discontinued ml IV 100 mls/hr Ondansetron HCl 4 mg/2 ml [Zofran 4 MG/2 ML VIAL] Med 04/17/22 21:51 Discontinued 4 mg .ROUTE .STK-MED ONE Ondansetron HCl 4 mg/2 ml [Zofran 4 MG/2 ML VIAL] Med 04/17/22 21:47 Discontinued 4 mg IV STAT ONE Pantoprazole 40 mg [Protonix 40 mg IV] Med 04/18/22 10:00 Active 40 mg IV Q24H10 Potassium Chloride Tab* [Klor Con] Med 04/17/22 22:56 Discontinued 40 meq PO .STK-MED ONE Potassium Chloride Tab* [Klor Con] Med 04/17/22 22:54 Discontinued 40 meq PO STAT ONE OT Screen per Nursing Assess ONCE OT 04/18/22 01:21 Active PT Screen per Nursing Assess ONCE PT 04/18/22 01:21 Active Respiratory Therapy Assessment DAILY RT 04/18/22 04:41 Completed Patient Care Notes (Last 24 hours) 04/18/22 01:34 Nursing Note by Liat Morgan Patient sees Dr. Yang once a week, has [facility]-nurse, aide, OT, PT, wound care. Scheduled for pacemaker revision-battery and lead replacement 04/25/22. Supposed to see Dr. Ivy Sparrow to establish care due to blood glucose not being consistent on 04/18/22 a 8:15-daughter Lilly states she will call and reschedule. Patient had been at [facility] until 03/29/22 and then sent to [place] for blood glucose issues. Then was discharged to daughter's home with [facility]. Patient has not had blood glucose controlled since DC. Initialized on 04/18/22 01:34 - END OF NOTE 04/17/22 22:44 Nursing Note by Amalia Dover Critical potassium level 3.[address] Sibley at this time. Initialized on 04/17/22 22:44 - END OF NOTE (2) Hypoglycemia Current Visit: Yes Status: Acute Code(s): E16.2 - HYPOGLYCEMIA, UNSPECIFIED (3) Hypokalemia Current Visit: Yes Status: Acute Code(s): E87.6 - HYPOKALEMIA
--- NOTE | 2022-04-18 09:08 | XRAY ---
Indication: Hypoglycemia. Comparison: May 05, 2012 Portable apical lordotic chest less inflated with minimal left base subsegmental atelectasis/scarring. Remaining heart and lungs unremarkable with new left pacemaker. Bony thorax intact again with osteopenia and degenerative changes.
[2022-04-18] MEDS: PROTONIX 40 MG IV IV SCH (09:45)
[2022-04-18] MEDS ORDERED: FLUZONE HIGH-DOSE QUAD 2022-23 IM ONE (10:00)
[2022-04-18] MEDS ORDERED: Nitrostat 0.4 MG Tablet SL PRN (10:30)
[2022-04-18] MEDS ORDERED: ECOTRIN 81 MG PO SCH (11:00)
[2022-04-18] MEDS ORDERED: Lantus Insulin SQ SCH ×2 (11:00→22:00)
[2022-04-18] MEDS ORDERED: Cymbalta 30 MG Capsule PO SCH (11:00)
[2022-04-18] MEDS: Cymbalta 30 MG Capsule PO SCH (11:04)
[2022-04-18] MEDS: ZYLOPRIM 100 MG PO SCH (11:06)
[2022-04-18] MEDS: SYNTHROID 25 MCG PO SCH (11:06)
[2022-04-18] MEDS: ELAVIL 10 MG PO SCH (11:06)
[2022-04-18] MEDS: Lopressor 25MG Tab PO SCH ×2 (11:06→21:57)
[2022-04-18] MEDS: Calcium 500MG W/Vit D Tablet PO SCH (11:06)
[2022-04-18] MEDS: Lasix 40 MG PO SCH (11:07)
[2022-04-18] MEDS: Mirapex 0.5 MG Tablet PO SCH ×3 (11:07→21:57)
[2022-04-18] MEDS: Ditropan 5 MG PO SCH ×2 (11:07→21:57)
[2022-04-18] MEDS: VITA-BEE WITH C PO SCH (11:11)
[2022-04-18] MEDS: HUMALOG SQ SCH ×2 (11:13→16:55)
[2022-04-18] MEDS ORDERED: MEDICATION INTERVENTION MC SCH ×5 (11:15)
[2022-04-18] MEDS ORDERED: PROTEASE PO SCH (11:30)
[2022-04-18] MEDS ORDERED: LIPASE PO SCH (11:30)
[2022-04-18] MEDS ORDERED: [UNRECOGNIZED DRUG - OTHER] PO SCH (11:30)
[2022-04-18] MEDS ORDERED: AMYLASE PO SCH (11:30)
[2022-04-18] MEDS ORDERED: NON-FORMULARY ITEM (Insulin Lispro [Admelog Solostar] 100 UNIT/ML Insuln.Pen) SQ SCH (11:30)
[2022-04-18] MEDS ORDERED: NON-FORMULARY ITEM (Pramipexole Di-Hcl [Pramipexole Dihydrochloride] 1 MG Tablet) PO SCH (15:00)
[2022-04-18] MEDS ORDERED: XARELTO 10 MG TABLET PO SCH (18:00)
[2022-04-18] MEDS ORDERED: NON-FORMULARY ITEM (Rivaroxaban [Xarelto] 15 MG Tablet) PO SCH (18:00)
[2022-04-18] MEDS ORDERED: NON-FORMULARY ITEM (Melatonin [Melatonin] 10 MG Tablet) PO SCH (22:00)
[2022-04-18] MEDS ORDERED: NON-FORMULARY ITEM (Atorvastatin Calcium [Atorvastatin Calcium] 80 MG Tablet) PO SCH (22:00)
[2022-04-18] MEDS ORDERED: CICLOPIROX TOP SCH (22:00)
[2022-04-18] MEDS ORDERED: [UNRECOGNIZED DRUG - OTHER] TOP SCH (22:00)
[2022-04-18] MEDS ORDERED: COMBO TOP SCH (22:00)
[2022-04-18] MEDS ORDERED: KENALOG 0.1% LOTION TP SCH (22:00)
[2022-04-18] MEDS ORDERED: ZOCOR 20MG PO SCH (22:00)
[2022-04-18] MEDS ORDERED: BALSALAZIDE DISODIUM 750 MG PO SCH (22:00)
[2022-04-18] MEDS ORDERED: MELATONIN PO SCH (22:00)
[2022-04-18] MEDS ORDERED: NON-FORMULARY ITEM (Insulin Detemir [Levemir] 100 UNIT/ML Vial) SQ SCH (22:00)
[2022-04-19] MEDS: TYLENOL 325 MG PO PRN ×2 (02:10→09:12)
[2022-04-19] MEDS ORDERED: Lasix 40 MG PO SCH (08:00)
[2022-04-19] MEDS: HUMALOG SQ SCH ×2 (08:41→11:44)
[2022-04-19] MEDS: ELAVIL 10 MG PO SCH (09:13)
[2022-04-19] MEDS: Calcium 500MG W/Vit D Tablet PO SCH (09:13)
[2022-04-19] MEDS: Cymbalta 30 MG Capsule PO SCH (09:13)
[2022-04-19] MEDS: Mirapex 0.5 MG Tablet PO SCH (09:13)
[2022-04-19] MEDS: SYNTHROID 25 MCG PO SCH (09:13)
[2022-04-19] MEDS: Ditropan 5 MG PO SCH (09:13)
[2022-04-19] MEDS: PROTONIX 40 MG IV IV SCH (09:13)
[2022-04-19] MEDS: Lopressor 25MG Tab PO SCH (09:13)
[2022-04-19] MEDS: ZYLOPRIM 100 MG PO SCH (09:13)
[2022-04-19] MEDS: VITA-BEE WITH C PO SCH (09:14)
[2022-04-19 09:19] LABS: Hemoglobin 8.5 g/dL (12.0-16.0); Mean Cell Volume 83.3 fL (78-100); Mean Corpuscular Hemoglobin 24.4 pg (26-32); Mean Corpuscular Hgb Concent. 29.3 g/dL (32-36); Mean Platelet Volume 9.1 fL (7.5-11.0); Platelet Count 246 x10^3/uL (150-450); Red Blood Count 3.48 x10^6/uL (4.1-5.4); Red Cell Distribution Width 17.1 % (11.5-14.0); White Blood Count 6.1 x10^3/uL (4.0-10.5)
[2022-04-19 09:33] LABS: ANION GAP 12.5 MEQ/L (5-15); Calcium 8.2 mg/dL (8.4-10.2); Creatinine 1 1.28 mg/dL (0.52-1.04); EST GLOMERULAR FILTRATION RATE 43.3 ML/MIN
[2022-04-19] MEDS ORDERED: NON-FORMULARY ITEM (Insulin Detemir [Levemir] 100 UNIT/ML Vial) SQ SCH (10:00)
[2022-04-19] MEDS ORDERED: NON-FORMULARY ITEM (Levothyroxine Sodium [Levothyroxine] 25 MCG Capsule) PO SCH (10:00)
[2022-04-19] MEDS ORDERED: NON-FORMULARY ITEM (Calcium Carb, Citrate/Vit D3 [Calcium + D3 Er Tablet] 1 EACH Tablet.Er PO SCH (10:00)
[2022-04-19] MEDS ORDERED: NON-FORMULARY ITEM (Duloxetine Hcl [Cymbalta] 60 MG Capsule.Dr) PO SCH (10:00)
[2022-04-19] MEDS ORDERED: NON-FORMULARY ITEM (Vitamin B Complex [Vitamin B Complex] 1 EACH Tablet) PO SCH (10:00)
[2022-04-19] MEDS ORDERED: Santyl OINTMENT TOP SCH (10:00)
[2022-04-19] MEDS ORDERED: NON-FORMULARY ITEM (Azelastine Hcl [Azelastine Hcl] 6 ML Drops) OP SCH (10:00)
[2022-04-19 11:48] VITALS: BP 145/74; PULSE 66; O2SAT 98
[2022-04-19] MEDS: Lasix 40 MG PO SCH (12:33)
--- NOTE | 2022-04-19 20:17 | PCM.DS ---
Discharge Summary Date of Admission: 04/18/22 00:33 Admitting Physician: RUFINO RESENDIZ Primary Care Provider: ENRIQUETA CORNOY Allergies Allergies No Known Drug Allergies Allergy (Unverified 04/18/22 00:46) Hospital Summary - Hospital Course Hospital Course: Chief Complaint Diagnosis Hypoglycemia, generalized weakness for 1 day Allergies Allergy/AdvReac Type Severity Reaction Status Date / Time No Known Drug Allergies Allergy Unverified 04/18/22 00:46 Vital Signs (Last 24 hours) Temp Pulse Resp BP Pulse Ox 04/19/22 11:46 98.2 F 66 16 145/74 98 04/19/22 07:14 98.0 F 86 16 133/59 99 04/19/22 04:00 97.5 F 64 17 95/44 96 04/19/22 00:00 97.8 F 62 17 118/58 90 L Home Medications Medication Instructions Recorded Confirmed Last Taken Type Allopurinol 100 mg [Zyloprim 100 mg PO DAILY 04/17/22 04/17/22 04/17/22 10:00 History 100 mg] Amitriptyline HCl 10 mg [Elavil 10 mg PO DAILY 04/17/22 04/17/22 04/17/22 10:00 History 10 mg] Aspirin EC 81 mg [Ecotrin 81 81 mg PO DAILY 04/17/22 04/17/22 04/17/22 10:00 History mg] Atorvastatin Calcium 80 mg PO QHS 04/17/22 04/17/22 04/16/22 22:00 History Azelastine HCl 1 drop OP DAILY 04/17/22 04/17/22 04/17/22 10:00 History Balsalazide Disodium 750 mg PO QHS 04/17/22 04/17/22 04/16/22 22:00 History Calcium Carb, Citrate/Vit D3 1 tab PO DAILY 04/17/22 04/17/22 04/17/22 10:00 History [Calcium + D3 ER Tablet] Ciclopirox/Skin Cleanser No.28 1 applic TOP QHS 04/17/22 04/17/22 04/16/22 22:00 History [Ciclodan 0.77% Cream Kit] Collagenase Oint [Santyl 1 applic TOP DAILY 04/17/22 04/17/22 04/17/22 10:00 History OINTMENT] Divalproex Sodium [Depakote] 250 mg PO DAILY 04/17/22 04/17/22 04/17/22 10:00 History Divalproex Sodium [Depakote] 500 mg PO EVENING MEAL 04/17/22 04/17/22 04/16/22 18:00 History Duloxetine HCl 30 mg PO DAILY 04/17/22 04/17/22 04/17/22 10:00 History Duloxetine HCl [Cymbalta] 60 mg PO DAILY 04/17/22 04/17/22 04/17/22 10:00 History Furosemide 80 mg PO DAILY 04/17/22 04/17/22 04/17/22 08:00 History Furosemide 40 mg [Lasix 40 40 mg PO LUNCH 04/17/22 04/17/22 04/17/22 14:00 History MG] Insulin Lispro [Admelog Solostar] 1 unit SQ AC 04/17/22 04/17/22 04/17/22 18:00 History Levothyroxine Sodium 25 mcg PO DAILY 04/17/22 04/17/22 04/17/22 08:00 History [Levothyroxine] Lipase/Protease/Amylase [Elvis Portillo 24,000 units PO AC 04/17/22 04/17/22 04/17/22 12:00 History 24,000 Unit Capsule] Metoprolol Tartrate 25 mg PO BID 04/17/22 04/17/22 04/17/22 10:00 History Nitroglycerin 0.4 mg SL UD 04/17/22 04/17/22 Unknown History Oxybutynin Chloride 5 mg PO BID 04/17/22 04/17/22 04/17/22 10:00 History Pramipexole Di-HCl [Pramipexole 1 mg PO TID 04/17/22 04/17/22 04/17/22 12:00 History Dihydrochloride] Rivaroxaban [Xarelto] 15 mg PO EVENING MEAL 04/17/22 04/18/22 04/16/22 18:00 History Vitamin B Complex 1 tab PO DAILY 04/17/22 04/17/22 04/17/22 10:00 History Melatonin 10 mg PO QHS 04/18/22 04/18/22 04/16/22 22:00 History Triamcinolone 0.1% Lotion 1 applic TOP QHS 04/18/22 04/18/22 04/16/22 22:00 History [Kenalog 0.1% Lotion] Insulin Detemir [Levemir] 15 unit SQ DAILY 30 Days 04/19/22 Unknown Rx Nystatin Powder 15 gm [Nystop 10 gm TP TID 7 Days 04/19/22 Unknown Rx Powder 15 gm] Current Medications Discontinued Medications Generic Name Dose Route Start Last Admin Trade Name Freq PRN Reason Stop Dose Admin Acetaminophen 650 mg 04/18/22 00:38 04/19/22 09:12 Acetaminophen 325 Mg Tablet PO 05/18/22 00:37 650 mg Q4H PRN PRN Administration PAIN AND/OR FEVER Albuterol/Ipratropium 3 ml 04/18/22 00:38 Ipratropium/Albuterol Sulfate 3 Ml Ampul.Neb IH 05/18/22 00:37 Q4HPRN PRN SHORTNESS OF BREATH/WHEEZING Allopurinol 100 mg 04/18/22 11:00 04/19/22 09:13 Allopurinol 100 Mg Tablet PO 05/18/22 10:59 100 mg DAILY CORNELIA Administration Amitriptyline HCl 10 mg 04/18/22 11:00 04/19/22 09:13 Amitriptyline Hcl 10 Mg Tablet PO 05/18/22 10:59 10 mg DAILY CORNELIA Administration Aspirin 81 mg 04/18/22 11:00 04/18/22 11:05 Aspirin 81 Mg Tablet.Ec PO 05/18/22 10:59 81 mg DAILY CORNELIA Administration Calcium Carbonate 1 tab 04/18/22 11:00 04/19/22 09:13 Calcium Carbonate 500 Mg/Vitamin D 1 Tab Tablet PO 05/18/22 10:59 1 tab DAILY CORNELIA Administration Dextrose Confirm 04/17/22 21:26 Dextrose 50%-Water 50 Ml Abboject Administered 04/17/22 21:27 Dose 50 ml IV .STK-MED ONE Dextrose 25 ml 04/17/22 22:10 04/17/22 21:30 Dextrose 50%-Water 50 Ml Abboject IV 04/17/22 22:11 25 ml STAT ONE Administration Dextrose 25 ml 04/17/22 22:11 04/17/22 22:12 Dextrose 50%-Water 50 Ml Abboject IV 04/17/22 22:12 25 ml STAT ONE Administration Divalproex Sodium 250 mg 04/18/22 11:00 04/19/22 09:13 Divalproex Sodium 250 Mg Tablet Delayed Release PO 05/18/22 10:59 250 mg DAILY CORNELIA Administration Divalproex Sodium 500 mg 04/18/22 18:00 04/18/22 18:06 Divalproex Sodium 250 Mg Tablet Delayed Release PO 05/18/22 17:59 500 mg EVENING MEAL CORNELIA Administration Duloxetine HCl 30 mg 04/18/22 11:00 Duloxetine Hcl 30 Mg Cap PO 05/18/22 10:59 DAILY CORNELIA Duloxetine HCl 90 mg 04/18/22 11:00 04/19/22 09:13 Duloxetine Hcl 30 Mg Cap PO 05/18/22 10:59 90 mg DAILY CORNELIA Administration Furosemide 80 mg 04/19/22 08:00 04/19/22 09:13 Furosemide 40 Mg Tablet PO 05/19/22 07:59 80 mg 0800 CORNELIA Administration Furosemide 40 mg 04/18/22 12:00 04/19/22 12:33 Furosemide 40 Mg Tablet PO 05/18/22 11:59 Not Given LUNCH CORNELIA Sodium Chloride 1,000 mls @ 100 mls/hr 04/17/22 22:00 04/17/22 23:32 Sodium Chloride 0.9% 1000 Ml IV 05/17/22 21:59 0 mls/hr .Q10H CORNELIA Infusion Dextrose 250 mls @ 30 mls/hr 04/17/22 22:30 04/18/22 09:45 Dextrose 10% 250 Ml IV 05/17/22 22:29 30 mls/hr .Q8H20M CORNELIA Administration Sodium Chloride Confirm 04/17/22 21:51 Sodium Chloride 0.9% 1000 Ml Administered 04/17/22 21:52 Dose 1,000 mls @ ud .ROUTE .STK-MED ONE Insulin Glargine 30 unit 04/18/22 11:00 04/18/22 11:11 Insulin Glargine 1 Unit SQ 05/18/22 10:59 Not Given QAM CORNELIA Insulin Glargine 24 unit 04/18/22 22:00 Insulin Glargine 1 Unit SQ 05/18/22 21:59 QHS CORNELIA Insulin Human Lispro 0 unit 04/18/22 11:30 04/19/22 11:44 Insulin Lispro 1 Unit SQ 05/18/22 11:29 Not Given AC CORNELIA Levothyroxine Sodium 25 mcg 04/18/22 11:00 04/19/22 09:13 Levothyroxine Sodium 25 Mcg Tablet PO 05/18/22 10:59 25 mcg DAILY CORNELIA Administration Melatonin 9 mg 04/18/22 22:00 04/18/22 21:58 Melatonin 3 Mg Tablet PO 05/18/22 21:59 9 mg QHS CORNELIA Administration Metoprolol Tartrate 25 mg 04/18/22 11:00 04/19/22 09:13 Metoprolol Tartrate 25 Mg Tab PO 05/18/22 10:59 25 mg BID CORNELIA Administration Miscellaneous Information 1 each 04/18/22 11:15 Medication Intervention 1 Each Each 05/18/22 11:14 .RN TO CHECK CORNELIA Miscellaneous Information 1 each 04/18/22 11:15 Medication Intervention 1 Each Each 05/18/22 11:14 .RN TO CHECK CORNELIA Miscellaneous Information 1 each 04/18/22 11:15 Medication Intervention 1 Each Each 05/18/22 11:14 .RN TO CHECK CORNELIA Miscellaneous Information 1 each 04/18/22 11:15 Medication Intervention 1 Each Each 05/18/22 11:14 .RN TO CHECK CORNELIA Miscellaneous Information 1 each 04/18/22 11:15 Medication Intervention 1 Each Each 05/18/22 11:14 .RN TO CHECK CORNELIA Multivitamins 1 tab 04/18/22 11:00 04/19/22 09:14 Vitamin B Complex With Vit. C Tablet PO 05/18/22 10:59 1 tab DAILY CORNELIA Administration Nitroglycerin 0.4 mg 04/18/22 10:30 Nitroglycerin 0.4 Mg Tablet Bottle SL 05/18/22 10:29 UD PRN Ondansetron HCl 4 mg 04/17/22 21:47 04/17/22 21:52 Ondansetron Hcl 4 Mg/2 Ml Vial IV 04/17/22 21:48 4 mg STAT ONE Administration Ondansetron HCl Confirm 04/17/22 21:51 Ondansetron Hcl 4 Mg/2 Ml Vial Administered 04/17/22 21:52 Dose 4 mg .ROUTE .STK-MED ONE Oxybutynin Chloride 5 mg 04/18/22 11:00 04/19/22 09:13 Oxybutynin Chloride 5 Mg Tablet PO 05/18/22 10:59 5 mg BID CORNELIA Administration Pantoprazole Sodium 40 mg 04/18/22 10:00 04/19/22 09:13 Pantoprazole 40 Mg Vial IV 05/18/22 09:59 40 mg Q24H10 CORNELIA Administration Potassium Chloride 40 meq 04/17/22 22:54 04/17/22 22:58 Potassium Chloride Tab 10 Meq Tab PO 04/17/22 22:55 40 meq STAT ONE Administration Potassium Chloride Confirm 04/17/22 22:56 Potassium Chloride Tab 10 Meq Tab Administered 04/17/22 22:57 Dose 40 meq PO .STK-MED ONE Pramipexole Dihydrochloride 1 mg 04/18/22 11:00 04/19/22 09:13 Pramipexole Di-Hcl 0.5 Mg Tab PO 05/18/22 10:59 1 mg TID CORNELIA Administration Rivaroxaban 15 mg 04/18/22 18:00 04/18/22 18:07 Rivaroxaban 10 Mg Tablet PO 05/18/22 17:59 15 mg EVENING MEAL CORNELIA Administration Simvastatin 40 mg 04/18/22 22:00 04/18/22 21:57 Simvastatin 20 Mg Tablet PO 05/18/22 21:59 40 mg QHS CORNELIA Administration Triamcinolone Acetonide 0 ml 04/18/22 22:00 04/18/22 21:58 Triamcinolone Acetonide 60 Ml Lotion TP 05/18/22 21:59 1 ml QHS CORNELIA Administration Intake & Output (Last 24 hours) 04/17/22 04/18/22 04/19/22 04/20/22 11:59 11:59 11:59 11:59 Intake Total 203 1800 380 Output Total 300 650 Balance -97 1150 380 Weight 131.5 kg Microbiology Results (Last 24 hours) 04/18/22 14:30 Leg - Right Lower Wound Culture - Preliminary GRAM NEGATIVE ID AND SENSITIVITY PENDING 04/17/22 22:13 Blood Blood Culture Gram Stain - Pending 04/17/22 22:13 Blood Blood Culture - Preliminary NO GROWTH TO DATE 04/17/22 22:13 Blood Blood Culture Gram Stain - Pending 04/17/22 22:13 Blood Blood Culture - Preliminary NO GROWTH TO DATE Laboratory Results (Last 24 hours) 04/19/22 04/19/22 04/19/22 11:37 09:17 09:17 WBC 6.1 RBC 3.48 L Hgb 8.5 L Hct 29.0 L MCV 83.3 MCH 24.4 L MCHC 29.3 L RDW 17.1 H Plt Count 246 MPV 9.1 Sodium 138 Potassium 4.0 Chloride 102 Carbon Dioxide 27 Anion Gap 12.5 BUN 23 H Creatinine 1.28 H Estimated GFR 43.3 Glucose 115 H POC Glucometer 121 H Calcium 8.2 L 04/19/22 04/18/22 07:25 21:33 WBC RBC Hgb Hct MCV MCH MCHC RDW Plt Count MPV Sodium Potassium Chloride Carbon Dioxide Anion Gap BUN Creatinine Estimated GFR Glucose POC Glucometer 111 H 181 H Calcium Orders (Last 24 hours) Category Date Time Status Discharge Routine Discharge 04/19/22 Ordered BMP Routine Lab 04/19/22 09:17 Completed CBC Routine Lab 04/19/22 09:17 Completed POCT GLUCOSE Stat Lab 04/18/22 21:33 Completed POCT GLUCOSE Stat Lab 04/19/22 07:25 Completed POCT GLUCOSE Stat Lab 04/19/22 11:37 Completed Furosemide 40 mg [Lasix 40 MG] Med 04/19/22 08:00 Discontinued 80 mg PO 0800 Insulin Glargine [Lantus Insulin] Med 04/18/22 22:00 Discontinued 24 unit SQ QHS Melatonin Med 04/18/22 22:00 Discontinued 9 mg PO QHS Simvastatin 20Mg [Zocor 20Mg] Med 04/18/22 22:00 Discontinued 40 mg PO QHS Triamcinolone 0.1% Lotion [Kenalog 0.1% Lotion] Med 04/18/22 22:00 Discontinued 0 ml TP QHS Patient Care Notes (Last 24 hours) 04/19/22 17:01 Physical Therapy Note by Latasha(Darren#[id number]),Rhonda DRESSINGS DRY AND INTACT THIS AM. TO D/C HOME W/ FAMILY AND CONT. W/ C THIS DATE. Initialized on 04/19/22 17:01 - END OF NOTE 04/19/22 14:07 (created 04/19/22 14:19) Nursing Note by Harmony Ibarra FAXED RECORDS TO [facility] Initialized on 04/19/22 14:19 - END OF NOTE 04/19/22 14:04 Nursing Note by Harmony Ibarra CALLED [facility] TO NOTIFY THEM THAT PT WILL DC TODAY. (JESSIE) Initialized on 04/19/22 14:04 - END OF NOTE 04/19/22 12:08 Nursing Note by Sole Pascal RUNDED ON PT WITH DR. RESENDIZ: RECEIVED THE FOLLOWING ORDERS - DISCHARGE HOME AND CONTINUE WITH [facility], LANTUS 15 UNITS DAILY AND [place]STATIN POWDER FOR EXCORIATION TO SKIN FOLDS. Initialized on 04/19/22 12:08 - END OF NOTE 04/19/22 09:55 Case Management Note by Christelle Olmos S/W PATIENT- SHE CONTINUES TO PLAN TO DC HOME WITH FAMILY AND C AT TIME OF DC. NO NEW NEEDS AT THIS TIME Initialized on 04/19/22 09:55 - END OF NOTE - Vitals & Intake/Output Vital Signs: Vital Signs Temperature 98.2 F 04/19/22 11:46 Pulse Rate 66 04/19/22 11:46 Respiratory Rate 16 04/19/22 11:46 Blood Pressure 145/74 04/19/22 11:46 O2 Sat by Pulse Oximetry 98 04/19/22 11:46 Intake & Output: Intake & Output 04/17/22 04/18/22 04/19/22 04/20/22 11:59 11:59 11:59 11:59 Intake Total 203 1800 380 Output Total 300 650 Balance -97 1150 380 Weight 131.5 kg - Lab Result Diagrams: 04/19/22 09:17 04/19/22 09:17 Lab Results-Last 24 Hrs: Lab Results-Last 24 Hours 04/18/22 04/19/22 04/19/22 Range/Units 21:33 07:25 09:17 WBC 6.1 (4.0-10.5) x10^3/uL RBC 3.48 L (4.1-5.4) x10^6/uL Hgb 8.5 L (12.0-16.0) g/dL Hct 29.0 L (35-47) % MCV 83.3 (78-100) fL MCH 24.4 L (26-32) pg MCHC 29.3 L (32-36) g/dL RDW 17.1 H (11.5-14.0) % Plt Count 246 (150-450) x10^3/uL MPV 9.1 (7.5-11.0) fL Sodium (137-145) mmol/L Potassium (3.5-5.1) mmol/L Chloride (98-107) mmol/L Carbon Dioxide (22-30) mmol/L Anion Gap (5-15) MEQ/L BUN (7-17) mg/dL Creatinine (0.52-1.04) mg/dL Estimated GFR ML/MIN Glucose (74-106) mg/dL POC Glucometer 181 H 111 H (74 to 106) mg/dL Calcium (8.4-10.2) mg/dL 04/19/22 04/19/22 Range/Units 09:17 11:37 WBC (4.0-10.5) x10^3/uL RBC (4.1-5.4) x10^6/uL Hgb (12.0-16.0) g/dL Hct (35-47) % MCV (78-100) fL MCH (26-32) pg MCHC (32-36) g/dL RDW (11.5-14.0) % Plt Count (150-450) x10^3/uL MPV (7.5-11.0) fL Sodium 138 (137-145) mmol/L Potassium 4.0 (3.5-5.1) mmol/L Chloride 102 (98-107) mmol/L Carbon Dioxide 27 (22-30) mmol/L Anion Gap 12.5 (5-15) MEQ/L BUN 23 H (7-17) mg/dL Creatinine 1.28 H (0.52-1.04) mg/dL Estimated GFR 43.3 ML/MIN Glucose 115 H (74-106) mg/dL POC Glucometer 121 H (74 to 106) mg/dL Calcium 8.2 L (8.4-10.2) mg/dL Micro Results-Entire Visit: Microbiology 04/18/22 14:30 Wound Culture - Preliminary Leg - Right Lower GRAM NEGATIVE ID AND SENSITIVITY PENDING 04/17/22 22:13 Blood Culture - Preliminary Blood NO GROWTH TO DATE 04/17/22 22:13 Blood Culture - Preliminary Blood NO GROWTH TO DATE Accuchecks Date 04/19/22 Date 04/19/22 Date 04/18/22 Time 11:46 Time 08:07 - Radiology Exams Ordered Rad Exams-Entire Visit: Radiology Procedures Category Date Time Status CHEST 1 VIEW (PORTABLE) Stat Exams 04/17/22 21:47 Completed - Procedures and Test Procedures and Tests throughout Hospitalization: Therapy Orders & Screens 04/18/22 01:21 OT Screen per Nursing Assess ONCE Comment: Protocol Order Physician Instructions: Greater than 3 points order OT Admission Screening Reason For Exam: Triggered on Admission Diagnosis: Hypoglycemia, hypokalemia,anemia, generalized weakness Open Wound/Cellutlitis/Pressure Ulcers: Yes Acute Fx/ORIF/Change in wt bearing status: No Severe MUSCULOSKELETAL pain: No ADL Dysfunction: Yes Acute CVA w/Hemiparesis/Hemiplegia: No Decreased Functional Mobility/Strength: Yes Sprain/Strain: No Acute Post-op Mobility Dysfunction: No Total Points: 9 PT Screen per Nursing Assess ONCE Comment: Protocol Order Physician Instructions: Greater than 3 points order PT Admission Screenin Reason For Exam: Triggered on Admission Diagnosis: Hypoglycemia, hypokalemia,anemia, generalized weakness Open Wound/Cellutlitis/Pressure Ulcers: Yes Acute Fx/ORIF/Change in wt bearing status: No Severe MUSCULOSKELETAL pain: No ADL Dysfunction: Yes Acute CVA w/Hemiparesis/Hemiplegia: No Decreased Functional Mobility/Strength: Yes Sprain/Strain: No Acute Post-op Mobility Dysfunction: No Total Points: 9 04/18/22 04:41 Respiratory Therapy Assessment DAILY Comment: Diagnosis: Hypoglycemia, hypokalemia,anemia, generalized weakness 04/18/22 11:43 PT Eval & Treat ( Order) ONCE Reason for Eval:: wounds to bilat lower ext with dressing changes Diagnosis: Hypoglycemia, generalized weakness for 1 day Discharge Exam General Appearance: no apparent distress, alert Neurologic Exam: alert, oriented x 3, cooperative, normal mood/affect, nml cereb ellar function, sensation nml, No motor deficits Eye Exam: PERRL, EOMI, eyes nml inspection Ears, Nose, Throat Exam: normal ENT inspection, pharynx normal, moist mucous membranes Neck Exam: normal inspection, non-tender, supple, full range of motion Respiratory Exam: normal breath sounds, lungs clear, No respiratory distress Cardiovascular Exam: regular rate/rhythm, normal heart sounds Gastrointestinal/Abdomen Exam: soft, No tenderness, No mass Pelvic Exam: deferred Rectal Exam: deferred Back Exam: normal inspection, normal range of motion, No CVA tenderness, No vertebral tenderness Extremity Exam: normal inspection, normal range of motion Skin Exam: normal color, warm, dry Final Diagnosis/Problem List - Final Discharge Diagnosis/Problem (1) Type 2 diabetes mellitus Status: Chronic (2) Hypoglycemia Status: Resolved Code(s): E16.2 - HYPOGLYCEMIA, UNSPECIFIED (3) Hypokalemia Status: Resolved Code(s): E87.6 - HYPOKALEMIA (4) Bilateral lower leg cellulitis Status: Acute Code(s): L03.116 - CELLULITIS OF LEFT LOWER LIMB; L03.115 - CELLULITIS OF RIGHT LOWER LIMB (5) Anemia Status: Chronic Code(s): D64.9 - ANEMIA, UNSPECIFIED - Discharge Discharge Date: 04/19/22 Disposition: HOME HEALTH SERVICE Condition: Stable Prescriptions: New Insulin Detemir [Levemir] 15 unit SQ DAILY 30 Days Nystatin Powder 15 gm [Nystop Powder 15 gm] 10 gm TP TID 7 Days Continue Calcium Carb, Citrate/Vit D3 [Calcium + D3 ER Tablet] 1 tab PO DAILY Balsalazide Disodium 750 mg PO QHS Azelastine HCl 1 drop OP DAILY Aspirin EC 81 mg [Ecotrin 81 mg] 81 mg PO DAILY Allopurinol 100 mg [Zyloprim 100 mg] 100 mg PO DAILY Nitroglycerin 0.4 mg SL UD Metoprolol Tartrate 25 mg PO BID Insulin Lispro [Admelog Solostar] 1 unit SQ AC Furosemide 40 mg [Lasix 40 MG] 40 mg PO LUNCH Furosemide 80 mg PO DAILY Divalproex Sodium [Depakote] 500 mg PO EVENING MEAL Divalproex Sodium [Depakote] 250 mg PO DAILY Atorvastatin Calcium 80 mg PO QHS Duloxetine HCl [Cymbalta] 60 mg PO DAILY Duloxetine HCl 30 mg PO DAILY Vitamin B Complex 1 tab PO DAILY Rivaroxaban [Xarelto] 15 mg PO EVENING MEAL Pramipexole Di-HCl [Pramipexole Dihydrochloride] 1 mg PO TID Lipase/Protease/Amylase [Creon Dr 24,000 Unit Capsule] 24,000 units PO AC Oxybutynin Chloride 5 mg PO BID Levothyroxine Sodium [Levothyroxine] 25 mcg PO DAILY Collagenase Oint [Santyl OINTMENT] 1 applic TOP DAILY Ciclopirox/Skin Cleanser No.28 [Ciclodan 0.77% Cream Kit] 1 applic TOP QHS Amitriptyline HCl 10 mg [Elavil 10 mg] 10 mg PO DAILY Triamcinolone 0.1% Lotion [Kenalog 0.1% Lotion] 1 applic TOP QHS Melatonin 10 mg PO QHS Discontinued Insulin Detemir [Levemir] 24 units SQ QHS Insulin Detemir [Levemir] 30 unit SQ QAM Instructions: Low Blood Sugar, Adult (DC) Additional Instructions: [place] CALLED IN TO [facility] AT THIS TIME PER FAMILY REQUEST. NO INSULIN REFILLS SENT IN DUE TO PT HAVING CURRENT HOME SUPPLY. Follow up with: ENRIQUETA CONROY [Primary Care Provider] - ([employer] Equipment Sales sent request to Office will call patient to discuss follow up appointment.) Forms: Discharge Instructions
== END 2022-04-19 14:53 | disposition home health service (06) ==
LOC: ED 21:13 → MED SURG 04-18 00:33
PROVIDERS: ADMIT General Practice; ATTEND General Practice
DX: E11.649 Type 2 diabetes mellitus with hypoglycemia without coma (principal); E87.6 Hypokalemia; L03.115 Cellulitis of right lower limb; L03.116 Cellulitis of left lower limb; D64.9 Anemia, unspecified; I10 Essential (primary) hypertension; E78.5 Hyperlipidemia, unspecified; Z79.899 Other long term (current) drug therapy; Z20.828 Contact with and (suspected) exposure to other viral communicable diseases; Z23 Encounter for immunization
CPT/HCPCS: 0241U; 36000; 36415; 51702; 71045; 80048; 80053; 81015; 82947; 83605; 83880; 84145; 84484; 85025; 85027; 86850; 86900; 86901; 86922; 87040; 87070; 87077; 87186; 93005; 93268; 96374; 96375; 97161; 99284; G0008; G0378; 90662; J2405; A9270-GY

== ENCOUNTER 2022-05-03 08:42 | Inpatient (IN) | payer MEDICARE ==
[2022-05-03] MEDS ORDERED: TYLENOL 325 MG PO STA (08:46)
--- NOTE | 2022-05-03 08:51 | ERPHSYRPT ---
- History of Present Illness Time Seen by Provider: 05/03/22 08:45 Source: patient Exam Limitations: no limitations Physician History: Patient is a 76-year-old female presents to our ED via EMS for evaluation of altered mental status. Patient lives with her family. EMS reports that family observe patient displaying odd behavior. Patient was trying to dress herself wi th close over close that she already had on. They state this is highly unusual. EMS notes a foul smell reminiscent of urine infection. Per EMS patient's apparent confusion was short-lived however. Family reports that patient later began to experience normal mentation. Patient denies pain. Patient febrile in our ED. Symptoms are mild to moderate in intensity. No specific worsening improving factors. Patient voices no other complaints or concerns at this time. Portions of this note were created with voice recognition technology. There may be grammatical, spelling, punctuation or sound alike errors Timing/Duration: today Severity: moderate Modifying Factors: Improves With: nothing Associated Symptoms: denies symptoms Allergies/Adverse Reactions: No Known Drug Allergies Allergy (Unverified 04/18/22 00:46) Home Medications: Allopurinol 100 mg [Zyloprim 100 mg] 100 mg PO DAILY 04/17/22 [History] Amitriptyline HCl 10 mg [Elavil 10 mg] 10 mg PO DAILY 04/17/22 [History] Aspirin EC 81 mg [Ecotrin 81 mg] 81 mg PO DAILY 04/17/22 [History] Atorvastatin Calcium 80 mg PO QHS 04/17/22 [History] Azelastine HCl 1 drop OP DAILY 04/17/22 [History] Balsalazide Disodium 750 mg PO QHS 04/17/22 [History] Calcium Carb, Citrate/Vit D3 [Calcium + D3 ER Tablet] 1 tab PO DAILY 04/17/22 [History] Ciclopirox/Skin Cleanser No.28 [Ciclodan 0.77% Cream Kit] 1 applic TOP QHS 04/17/22 [History] Collagenase Oint [Santyl OINTMENT] 1 applic TOP DAILY 04/17/22 [History] Divalproex Sodium [Depakote] 250 mg PO DAILY 04/17/22 [History] Divalproex Sodium [Depakote] 500 mg PO EVENING MEAL 04/17/22 [History] Duloxetine HCl 30 mg PO DAILY 04/17/22 [History] Duloxetine HCl [Cymbalta] 60 mg PO DAILY 04/17/22 [History] Furosemide 80 mg PO DAILY 04/17/22 [History] Furosemide 40 mg [Lasix 40 MG] 40 mg PO LUNCH 04/17/22 [History] Insulin Lispro [Admelog Solostar] 6 unit SQ AC 04/17/22 [History] Levothyroxine Sodium [Levothyroxine] 25 mcg PO DAILY 04/17/22 [History] Lipase/Protease/Amylase [Creon Dr 24,000 Unit Capsule] 24,000 units PO AC 04/17/22 [History] Metoprolol Tartrate 25 mg PO BID 04/17/22 [History] Nitroglycerin 0.4 mg SL UD 04/17/22 [History] Oxybutynin Chloride 5 mg PO BID 04/17/22 [History] Pramipexole Di-HCl [Pramipexole Dihydrochloride] 1 mg PO TID 04/17/22 [History] Rivaroxaban [Xarelto] 15 mg PO EVENING MEAL 04/17/22 [History] Vitamin B Complex 1 tab PO DAILY 04/17/22 [History] Melatonin 10 mg PO QHS 04/18/22 [History] Triamcinolone 0.1% Lotion [Kenalog 0.1% Lotion] 1 applic TOP QHS 04/18/22 [History] Insulin Detemir [Levemir] 30 unit SQ QAM 05/03/22 [History] Hx Tetanus, Diphtheria Vaccination/Date Given: No Hx Influenza Vaccination/Date Given: Yes (2011) Hx Pneumococcal Vaccination/Date Given: No Travel Risk - Vaccine Status Have you recieved a Covid-19 vaccination: Yes 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 - Vaccination Dates Dates if Unknown: unknown - Review of Systems Constitutional: No Symptoms, No Fever, No Chills Eyes: No Symptoms Ears, Nose, & Throat: No Symptoms Respiratory: No Symptoms, No Cough, No Dyspnea Cardiac: No Symptoms, No Chest Pain, No Edema, No Syncope Abdominal/Gastrointestinal: No Symptoms, No Abdominal Pain, No Nausea, No Vomiting, No Diarrhea Genitourinary Symptoms: No Symptoms, No Dysuria Musculoskeletal: No Symptoms, No Back Pain, No Neck Pain Skin: No Symptoms, No Rash Neurological: No Symptoms, No Dizziness, No Focal Weakness, No Sensory Changes Psychological: No Symptoms Endocrine: No Symptoms Hematologic/Lymphatic: No Symptoms Immunological/Allergic: No Symptoms All Other Systems: Reviewed and Negative - Past Medical History Pertinent Past Medical History: Yes Neurological History: Migraines, TIA, Other ENT History: No Pertinent History Cardiac History: High Cholesterol, Hypertension, Other Respiratory History: No Pertinent History Endocrine Medical History: Diabetes Type II Musculoskeletal History: No Pertinent History, Degenerative Disk Disease GI Medical History: Irritable Bowel History: No Pertinent History Psycho-Social History: No Pertinent History Female Reproductive Disorders: No Pertinent History Other Medical History: NEUROPATHY - Past Surgical History Past Surgical History: Yes Neuro Surgical History: No Pertinent History Cardiac: Pacemaker Gastrointestinal: Appendectomy, Cholecystectomy Genitourinary: No Pertinent History Musculoskeletal: Joint Replacement, Orthopedic Surgery Female Surgical History: No Pertinent History Other Surgical History: BARIATRIC SURG,CARPAL TUNNEL - Social History Smoking Status: Never smoker Exposure to second hand smoke: Yes Drug Use: none Patient Lives Alone: Yes - Nursing Vital Signs Nursing Vital Signs: Initial Vital Signs Temperature 100.6 F 05/03/22 08:43 Pulse Rate 88 05/03/22 08:43 Respiratory Rate 20 05/03/22 08:43 Blood Pressure 117/54 05/03/22 08:43 O2 Sat by Pulse Oximetry 90 L 05/03/22 08:43 Pain Scale Pain Intensity 0 - Physical Exam General Appearance: no apparent distress, alert, other (Patient wearing nasal cannula.) Eye Exam: PERRL/EOMI, eyes nml inspection Ears, Nose, Throat Exam: normal ENT inspection, TMs normal, pharynx normal, other (Dry oral mucous membranes) Neck Exam: normal inspection, non-tender, supple, full range of motion Respiratory Exam: normal breath sounds, lungs clear, airway intact, No respiratory distress Cardiovascular Exam: regular rate/rhythm, normal heart sounds, normal peripheral pulses Gastrointestinal/Abdomen Exam: soft, normal bowel sounds, No tenderness, No mass Back Exam: normal inspection, normal range of motion, No CVA tenderness, No vertebral tenderness Extremity Exam: normal inspection, normal range of motion, pelvis stable Neurologic Exam: alert, oriented x 3, cooperative, normal mood/affect, sensation nml, No motor deficits Skin Exam: normal color, warm, dry, No rash Lymphatic Exam: No adenopathy SpO2 Interpretation: normal SpO2: 90 O2 Delivery: Room Air - Course Nursing assessment & vital signs reviewed: Yes EKG Interpreted by Me: RATE (92), Sinus Rhythm, NORMAL AXIS, NORMAL INTERVALS, Right Bundle Branch Block - Radiology Exams Chest X-ray Interpretation: Teleradiologist Report (Nonacute chest with chronic features) - CT Exams Head CT Interpretation: Tele-radiologist Report (Normal aging with atrophy, micro ischemia, new lacunar infarct) Ordered Tests: Active Orders 24 hr Category Date Time Status Folder Operator STAT Care 05/03/22 08:47 Active EKG-ER Only STAT Care 05/03/22 08:46 Active Kim [Catheter-Wells Tannery Kim] STAT Care 05/03/22 10:06 Active IV Insertion STAT Care 05/03/22 08:46 Active Pulse Oximetry (ED) STAT Care 05/03/22 08:46 Active CHEST 1 VIEW (PORTABLE) Stat Exams 05/03/22 08:46 Completed HEAD WITHOUT CONTRAST [CT] Stat Exams 05/03/22 08:47 Completed BLOOD CULTURE Stat Lab 05/03/22 09:24 Ordered CBC W DIFF Stat Lab 05/03/22 08:46 Completed CMP Stat Lab 05/03/22 09:35 Completed CULTURE,URINE Stat Lab 05/03/22 10:04 Received Lactic Acid Stat Lab 05/03/22 08:46 Completed TROPONIN Q4H Lab 05/03/22 09:35 Completed TROPONIN Q4H Lab 05/03/22 13:00 Ordered TROPONIN Q4H Lab 05/03/22 17:00 Ordered TSH [TSH, 3RD Generation] Stat Lab 05/03/22 09:35 Received UA W/RFX CULTURE Stat Lab 05/03/22 10:04 Completed Transfer Order Routine Transfer 05/03/22 Ordered Medication Summary Generic Name Dose Route Start Last Admin Trade Name Freq PRN Reason Stop Dose Admin Sodium Chloride 1,000 mls @ 100 mls/hr 05/03/22 09:00 05/03/22 08:58 Sodium Chloride 0.9% 1000 Ml IV 06/02/22 08:59 100 mls/hr .Q10H CORNELIA Administration Levofloxacin/Dextrose 500 mg in 100 mls @ 100 mls/hr 05/03/22 10:37 05/03/22 10:41 Levofloxacin 500mg/100ml D5w IV 05/03/22 11:36 100 ml/hr STAT STA 100 mls/hr Administration Discontinued Medications Generic Name Dose Route Start Last Admin Trade Name Enedina PRPriscilla Reason Stop Dose Admin Acetaminophen 975 mg 05/03/22 08:46 05/03/22 08:58 Acetaminophen 325 Mg Tablet PO 05/03/22 08:47 975 mg STAT STA Administration Acetaminophen Confirm 05/03/22 08:57 Acetaminophen 325 Mg Tablet Administered 05/03/22 08:58 Dose 975 mg .ROUTE .[employer] ONE Levofloxacin/Dextrose Confirm 05/03/22 10:39 Levofloxacin 500mg/100ml D5w Administered 05/03/22 10:40 Dose 500 mg in 100 mls @ ud IV [employer] ONE Lab/Rad Data: Laboratory Result Diagrams 05/03/22 08:46 05/03/22 09:35 Laboratory Results 05/03/22 05/03/22 05/03/22 Range/Units 10:04 10:00 09:35 WBC (4.0-10.5) x10^3/uL RBC (4.1-5.4) x10^6/uL Hgb (12.0-16.0) g/dL Hct (35-47) % MCV (78-100) fL MCH (26-32) pg MCHC (32-36) g/dL RDW (11.5-14.0) % Plt Count (150-450) x10^3/uL MPV (7.5-11.0) fL Gran % (36.0-66.0) % Immature Gran % (Auto) (0.00-0.4) % Nucleat RBC Rel Count (0.00-0.1) % Eos # (Auto) (0-0.5) x10^3/uL Immature Gran # (Auto) (0.00-0.03) x10^3u/L Absolute Lymphs (auto) (1.0-4.6) x10^3/uL Absolute Monos (auto) (0.0-1.3) x10^3/uL Absolute Nucleated RBC (0.00-0.01) x10^3u/L Lymphocytes % (24.0-44.0) % Monocytes % (0.0-12.0) % Eosinophils % (0.00-5.0) % Basophils % (0.0-0.4) % Absolute Granulocytes (1.4-6.9) x10^3/uL Basophils # (0-0.4) x10^3/uL Sodium (137-145) mmol/L Potassium (3.5-5.1) mmol/L Chloride (98-107) mmol/L Carbon Dioxide (22-30) mmol/L Anion Gap (5-15) MEQ/L BUN (7-17) mg/dL Creatinine (0.52-1.04) mg/dL Estimated GFR ML/MIN Glucose (74-106) mg/dL Lactic Acid (0.4-2.0) Calcium (8.4-10.2) mg/dL Total Bilirubin (0.2-1.3) mg/dL AST (14-36) U/L ALT (0-35) U/L Alkaline Phosphatase (38-126) U/L Troponin I (0.000-0.034) ng/mL Serum Total Protein (6.3-8.2) g/dL Albumin (3.5-5.0) g/dL TSH 3rd Generation 1.370 (0.47-4.68) mIU/L Urinalys Dipstick Clnc MAIN LAB Urine Color YELLOW (YELLOW) Urine Appearance SLIGHTLY (CLEAR) Urine pH 8.5 (5-6) Ur Specific [place] 1.015 (1.005-1.025) POC Urine Protein Conf 100 (Negative) Urine Ketones NEGATIVE (NEGATIVE) Urine Nitrite POSITIVE (NEGATIVE) Urine Bilirubin NEGATIVE (NEGATIVE) Urine Urobilinogen 0.2 (0-1) mg/dL Urine Leukocytes SMALL (NEGATIVE) Urine WBC (Auto) 51-100 (0-5) /HPF Urine RBC (Auto) 0-2 (0-2) /HPF U Epithel Cells (Auto) RARE (FEW) /HPF Urine Bacteria (Auto) MANY (NEGATIVE) /HPF Urine RBC NEGATIVE (0-5) Chente/ul Ur Culture Indicated? YES Urine Glucose NEGATIVE (NEGATIVE) mg/dL Influenza Type A Ag NEGATIVE (NEGATIVE) Influenza Type B Ag NEGATIVE (NEGATIVE) RSV (PCR) NEGATIVE (Negative) SARS-CoV-2 (PCR) NEGATIVE (NEGATIVE) 10/04/22 10/04/22 10/04/22 Range/Units 09:35 09:35 08:46 WBC (4.0-10.5) x10^3/uL RBC (4.1-5.4) x10^6/uL Hgb (12.0-16.0) g/dL Hct (35-47) % MCV (78-100) fL MCH (26-32) pg MCHC (32-36) g/dL RDW (11.5-14.0) % Plt Count (150-450) x10^3/uL MPV (7.5-11.0) fL Gran % (36.0-66.0) % Immature Gran % (Auto) (0.00-0.4) % Nucleat RBC Rel Count (0.00-0.1) % Eos # (Auto) (0-0.5) x10^3/uL Immature Gran # (Auto) (0.00-0.03) x10^3u/L Absolute Lymphs (auto) (1.0-4.6) x10^3/uL Absolute Monos (auto) (0.0-1.3) x10^3/uL Absolute Nucleated RBC (0.00-0.01) x10^3u/L Lymphocytes % (24.0-44.0) % Monocytes % (0.0-12.0) % Eosinophils % (0.00-5.0) % Basophils % (0.0-0.4) % Absolute Granulocytes (1.4-6.9) x10^3/uL Basophils # (0-0.4) x10^3/uL Sodium 136 L (137-145) mmol/L Potassium 3.7 (3.5-5.1) mmol/L Chloride 102 (98-107) mmol/L Carbon Dioxide 26 (22-30) mmol/L Anion Gap 12.4 (5-15) MEQ/L BUN 29 H (7-17) mg/dL Creatinine 1.17 H (0.52-1.04) mg/dL Estimated GFR 48.1 ML/MIN Glucose 152 H (74-106) mg/dL Lactic Acid 1.3 (0.4-2.0) Calcium 8.2 L (8.4-10.2) mg/dL Total Bilirubin 0.70 (0.2-1.3) mg/dL AST 28 (14-36) U/L ALT 16 (0-35) U/L Alkaline Phosphatase 96 (38-126) U/L Troponin I < 0.012 (0.000-0.034) ng/mL Serum Total Protein 7.4 (6.3-8.2) g/dL Albumin 3.8 (3.5-5.0) g/dL TSH 3rd Generation (0.47-4.68) mIU/L Urinalys Dipstick Clnc Urine Color (YELLOW) Urine Appearance (CLEAR) Urine pH (5-6) Ur Specific [place] (1.005-1.025) POC Urine Protein Conf (Negative) Urine Ketones (NEGATIVE) Urine Nitrite (NEGATIVE) Urine Bilirubin (NEGATIVE) Urine Urobilinogen (0-1) mg/dL Urine Leukocytes (NEGATIVE) Urine WBC (Auto) (0-5) /HPF Urine RBC (Auto) (0-2) /HPF U Epithel Cells (Auto) (FEW) /HPF Urine Bacteria (Auto) (NEGATIVE) /HPF Urine RBC (0-5) Chente/ul Ur Culture Indicated? Urine Glucose (NEGATIVE) mg/dL Influenza Type A Ag (NEGATIVE) Influenza Type B Ag (NEGATIVE) RSV (PCR) (Negative) SARS-CoV-2 (PCR) (NEGATIVE) 05/03/22 Range/Units 08:46 WBC 6.8 (4.0-10.5) x10^3/uL RBC 3.65 L (4.1-5.4) x10^6/uL Hgb 8.7 L (12.0-16.0) g/dL Hct 29.8 L (35-47) % MCV 81.6 (78-100) fL MCH 23.8 L (26-32) pg MCHC 29.2 L (32-36) g/dL RDW 17.6 H (11.5-14.0) % Plt Count 272 (150-450) x10^3/uL MPV 9.6 (7.5-11.0) fL Gran % 61.3 (36.0-66.0) % Immature Gran % (Auto) 0.1 (0.00-0.4) % Nucleat RBC Rel Count 0.0 (0.00-0.1) % Eos # (Auto) 0.02 (0-0.5) x10^3/uL Immature Gran # (Auto) 0.01 (0.00-0.03) x10^3u/L Absolute Lymphs (auto) 2.01 (1.0-4.6) x10^3/uL Absolute Monos (auto) 0.58 (0.0-1.3) x10^3/uL Absolute Nucleated RBC 0.00 (0.00-0.01) x10^3u/L Lymphocytes % 29.4 (24.0-44.0) % Monocytes % 8.5 (0.0-12.0) % Eosinophils % 0.3 (0.00-5.0) % Basophils % 0.4 (0.0-0.4) % Absolute Granulocytes 4.18 (1.4-6.9) x10^3/uL Basophils # 0.03 (0-0.4) x10^3/uL Sodium (137-145) mmol/L Potassium (3.5-5.1) mmol/L Chloride (98-107) mmol/L Carbon Dioxide (22-30) mmol/L Anion Gap (5-15) MEQ/L BUN (7-17) mg/dL Creatinine (0.52-1.04) mg/dL Estimated GFR ML/MIN Glucose (74-106) mg/dL Lactic Acid (0.4-2.0) Calcium (8.4-10.2) mg/dL Total Bilirubin (0.2-1.3) mg/dL AST (14-36) U/L ALT (0-35) U/L Alkaline Phosphatase (38-126) U/L Troponin I (0.000-0.034) ng/mL Serum Total Protein (6.3-8.2) g/dL Albumin (3.5-5.0) g/dL TSH 3rd Generation (0.47-4.68) mIU/L Urinalys Dipstick Clnc Urine Color (YELLOW) Urine Appearance (CLEAR) Urine pH (5-6) Ur Specific [place] (1.005-1.025) POC Urine Protein Conf (Negative) Urine Ketones (NEGATIVE) Urine Nitrite (NEGATIVE) Urine Bilirubin (NEGATIVE) Urine Urobilinogen (0-1) mg/dL Urine Leukocytes (NEGATIVE) Urine WBC (Auto) (0-5) /HPF Urine RBC (Auto) (0-2) /HPF U Epithel Cells (Auto) (FEW) /HPF Urine Bacteria (Auto) (NEGATIVE) /HPF Urine RBC (0-5) Chente/ul Ur Culture Indicated? Urine Glucose (NEGATIVE) mg/dL Influenza Type A Ag (NEGATIVE) Influenza Type B Ag (NEGATIVE) RSV (PCR) (Negative) SARS-CoV-2 (PCR) (NEGATIVE) - Progress Progress Note: Patient 76-year-old female presents to our ED for evaluation of confusion. Work-up reveals a lacunar infarct that apparently is new however not acute. Patient had a fever upon arrival. Patient received Tylenol. Patient appeared dehydrated. IV fluids infused. Chewable aspirin administered. Work-up reveals a urinary tract infection. Fever is likely due to UTI. Patient received Levaquin antibiotic. Patient was mildly hypoxic upon arrival to our ED. O2 sat was 90%. Patient complains of no shortness of breath. However we applied 2 L nasal cannula. COVID test negative. Case discussed with Dr. Eller who accepts admission to observation. Plan of care discussed with patient. She agrees to admission at [facility] for further evaluation and treatment. Portions of this note were created with voice recognition technology. There may be grammatical, spelling, punctuation or sound alike errors 05/03/22 10:54 Discussed with : Lissett Will see patient in: hospital (observation) Counseled pt/family regarding: lab results, diagnosis, rad results - Departure Departure Disposition: Observation Clinical Impression: Delirium, TIA (transient ischemic attack), Dehydration, Fever, UTI (urinary tract infection), Hypoxia Condition: Stable Critical Care Time: No Referrals: ENRIQUETA CONROY [Primary Care Provider] - Follow up/PCP as directed
[2022-05-03] MEDS ORDERED: TYLENOL 325 MG ONE (08:57)
[2022-05-03] MEDS ORDERED: Sodium Chloride 0.9% 1000 ML 1,000 ML IV SCH (09:00)
--- NOTE | 2022-05-03 09:34 | XRAY ---
Indication: Acute mental status change. Multiple contiguous axial images obtained through the head without contrast. Comparison: January 02, 2013 Again age-appropriate global atrophy and mild periventricular degenerative micro-ischemia bilaterally. New lacunar infarct right thalamus. No acute intracranial hemorrhage, abnormal extra-axial fluid collection, or mass effect. Fourth ventricle is midline without hydrocephalus. Bony calvarium intact. Paranasal sinuses and mastoid air cells are clear. Impression: 1. Normal aging brain including atrophy and degenerative micro-ischemia. New lacunar infarct right thalamus. 2. Remaining CT head without contrast exam is negative.
--- NOTE | 2022-05-03 09:34 | XRAY ---
Indication: Confusion. Acute mental status change. Pneumonia. Comparison: April 17, 2022 Portable chest remains clear. Heart not enlarged again with tortuous descending aorta and left dual-lead pacemaker. Bony thorax intact again with osteopenia and degenerative changes. Impression: Continued nonacute chest with chronic features.
[2022-05-03 10:01] LABS: Absolute Neutrophil Ct (ANC) 4.18 x10^3/uL (1.4-6.9); Basophil (Absolute #) 0.03 x10^3/uL (0-0.4); Eosinophil % 0.3 % (0.00-5.0); Eosinophil (Absolute #) 0.02 x10^3/uL (0-0.5); Hematocrit 29.8 % (35-47); Hemoglobin 8.7 g/dL (12.0-16.0); Lymphocyte (Absolute #) 2.01 x10^3/uL (1.0-4.6); Lymphocytes % 29.4 % (24.0-44.0); Mean Cell Volume 81.6 fL (78-100); Mean Corpuscular Hemoglobin 23.8 pg (26-32); Mean Corpuscular Hgb Concent. 29.2 g/dL (32-36); Mean Platelet Volume 9.6 fL (7.5-11.0); Monocyte (Absolute #) 0.58 x10^3/uL (0.0-1.3); Monocytes % 8.5 % (0.0-12.0); Neutrophil % 61.3 % (36.0-66.0); Platelet Count 272 x10^3/uL (150-450); Red Blood Count 3.65 x10^6/uL (4.1-5.4); Red Cell Distribution Width 17.6 % (11.5-14.0); White Blood Count 6.8 x10^3/uL (4.0-10.5)
[2022-05-03 10:05] LABS: ALBUMIN 3.8 g/dL (3.5-5.0); ANION GAP 12.4 MEQ/L (5-15); BILIRUBIN,TOTAL 0.7 mg/dL (0.2-1.3); Calcium 8.2 mg/dL (8.4-10.2); Creatinine 1 1.17 mg/dL (0.52-1.04); EST GLOMERULAR FILTRATION RATE 48.1 ML/MIN; Potassium 3.7 mmol/L (3.5-5.1); Total Protein 7.4 g/dL (6.3-8.2)
[2022-05-03 10:17] LABS: Bacteria MANY /HPF (NEGATIVE); Epithelial Cells RARE /HPF (FEW); RBC 0-2 /HPF (0-2); WBC 51-100 /HPF (0-5)
[2022-05-03 10:25] LABS: Appearance SLIGHTLY (CLEAR); Bilirubin NEGATIVE (NEGATIVE); Glucose NEGATIVE (NEGATIVE); Ketones NEGATIVE (NEGATIVE); Nitrite POSITIVE (NEGATIVE); Ph 8.5 (5-6); Protein,Urine Dip 100 (Negative); RBC NEGATIVE Ery/ul (0-5); Specific Gravity 1.015 (1.005-1.025); Urobilinogen 0.2 mg/dL (0-1)
[2022-05-03 10:26] LABS: Dipstick done @ ? MAIN LAB
[2022-05-03 10:28] LABS: Urine Cultured Indicated? YES
[2022-05-03 10:31] LABS: INFLUENZA A NEGATIVE (NEGATIVE); INFLUENZA B NEGATIVE (NEGATIVE); RESPIRATORY SYNCTIAL VIRUS NEGATIVE (Negative); SARS-CoV-2 Xpert Express NEGATIVE (NEGATIVE)
[2022-05-03] MEDS ORDERED: Levofloxacin 500MG/100ML D5W 500 MG/100 ML BAG IV STA (10:37)
[2022-05-03] MEDS ORDERED: Levofloxacin 500MG/100ML D5W 500 MG/100 ML BAG IV ONE (10:39)
[2022-05-03] MEDS ORDERED: BABY ASPIRIN 81 MG CHEW PO ONE (10:55)
[2022-05-03] MEDS ORDERED: BABY ASPIRIN 81 MG CHEW ONE (11:16)
[2022-05-03 11:27] LABS: ABO TYPING O
[2022-05-03 11:28] LABS: Antibody Screen NEGATIVE (NEGATIVE); RH TYPING POSITIVE
[2022-05-03] MEDS ORDERED: MORPHINE SULFATE 2 MG INJ IV PRN (11:34)
[2022-05-03] MEDS ORDERED: Nitrostat 0.4 MG Tablet SL PRN (13:45)
[2022-05-03] MEDS ORDERED: MEDICATION INTERVENTION MC SCH (14:30)
[2022-05-03] MEDS: ELAVIL 10 MG PO SCH (14:40)
[2022-05-03] MEDS: Mirapex 0.5 MG Tablet PO SCH ×2 (14:40→21:17)
[2022-05-03] MEDS: SYNTHROID 25 MCG PO SCH (14:41)
[2022-05-03] MEDS: ZYLOPRIM 100 MG PO SCH (14:41)
[2022-05-03] MEDS: NYSTOP POWDER 15 GM TP SCH ×2 (14:43→21:17)
[2022-05-03] MEDS: Santyl OINTMENT TOP SCH (14:57)
[2022-05-03] MEDS ORDERED: NON-FORMULARY ITEM (Pramipexole Di-Hcl [Pramipexole Dihydrochloride] 1 MG Tablet) PO SCH (15:00)
[2022-05-03] MEDS ORDERED: Cymbalta 30 MG Capsule PO SCH ×2 (15:00)
[2022-05-03] MEDS: ZENPEP DR 5,000 UNIT CAPSULE PO SCH (16:10)
[2022-05-03] MEDS: TYLENOL 325 MG PO PRN ×2 (16:11→21:17)
[2022-05-03] MEDS ORDERED: [UNRECOGNIZED DRUG - OTHER] PO SCH (16:30)
[2022-05-03] MEDS ORDERED: PROTEASE PO SCH (16:30)
[2022-05-03] MEDS ORDERED: LIPASE PO SCH (16:30)
[2022-05-03] MEDS ORDERED: AMYLASE PO SCH (16:30)
[2022-05-03] MEDS ORDERED: XARELTO 10 MG TABLET PO SCH (18:00)
[2022-05-03] MEDS ORDERED: NON-FORMULARY ITEM (Rivaroxaban [Xarelto] 15 MG Tablet) PO SCH (18:00)
[2022-05-03] MEDS: Sodium Chloride 0.9% 1000 ML 1,000 ML IV SCH (20:10)
[2022-05-03] MEDS: Ditropan 5 MG PO SCH (21:15)
[2022-05-03] MEDS: KENALOG 0.1% LOTION TP SCH (21:15)
[2022-05-03] MEDS: LOPROX TOP SCH (21:16)
[2022-05-03] MEDS: Lopressor 25MG Tab PO SCH (21:16)
[2022-05-03] MEDS: MELATONIN PO SCH (21:16)
[2022-05-03] MEDS: ZOCOR 20MG PO SCH (21:17)
[2022-05-03] MEDS ORDERED: [UNRECOGNIZED DRUG - OTHER] TOP SCH (22:00)
[2022-05-03] MEDS ORDERED: COMBO TOP SCH (22:00)
[2022-05-03] MEDS ORDERED: NON-FORMULARY ITEM (Atorvastatin Calcium [Atorvastatin Calcium] 80 MG Tablet) PO SCH (22:00)
[2022-05-03] MEDS ORDERED: NON-FORMULARY ITEM (Melatonin [Melatonin] 10 MG Tablet) PO SCH (22:00)
[2022-05-03] MEDS ORDERED: CICLOPIROX TOP SCH (22:00)
[2022-05-04] MEDS: TYLENOL 325 MG PO PRN ×6 (01:19→22:32)
[2022-05-04 04:50] LABS: Absolute Neutrophil Ct (ANC) 2.53 x10^3/uL (1.4-6.9); Basophil (Absolute #) 0.02 x10^3/uL (0-0.4); Eosinophil % 0.2 % (0.00-5.0); Eosinophil (Absolute #) 0.01 x10^3/uL (0-0.5); Hematocrit 24.4 % (35-47); Hemoglobin 7.4 g/dL (12.0-16.0); Lymphocyte (Absolute #) 2.15 x10^3/uL (1.0-4.6); Mean Cell Volume 80.8 fL (78-100); Mean Corpuscular Hemoglobin 24.5 pg (26-32); Mean Corpuscular Hgb Concent. 30.3 g/dL (32-36); Mean Platelet Volume 9.8 fL (7.5-11.0); Monocyte (Absolute #) 0.53 x10^3/uL (0.0-1.3); Monocytes % 10.1 % (0.0-12.0); Neutrophil % 48.1 % (36.0-66.0); Platelet Count 244 x10^3/uL (150-450); Red Blood Count 3.02 x10^6/uL (4.1-5.4); Red Cell Distribution Width 17.9 % (11.5-14.0); White Blood Count 5.3 x10^3/uL (4.0-10.5)
[2022-05-04 05:01] LABS: ALBUMIN 3.1 g/dL (3.5-5.0); ANION GAP 9.4 MEQ/L (5-15); BILIRUBIN,TOTAL 0.5 mg/dL (0.2-1.3); Calcium 7.5 mg/dL (8.4-10.2); Creatinine 1 1.08 mg/dL (0.52-1.04); EST GLOMERULAR FILTRATION RATE 52.7 ML/MIN; Potassium 4.2 mmol/L (3.5-5.1); Total Protein 6.2 g/dL (6.3-8.2)
[2022-05-04] MEDS: Sodium Chloride 0.9% 1000 ML 1,000 ML IV SCH ×2 (05:31→22:29)
[2022-05-04] MEDS ORDERED: Sodium Chloride 0.9% W/ 20 mEq KCl/LITER 1,000 ML IV SCH (06:30)
[2022-05-04] MEDS: ZENPEP DR 5,000 UNIT CAPSULE PO SCH ×3 (06:45→16:19)
[2022-05-04] MEDS: IMODIUM 2 MG PO PRN (06:53)
[2022-05-04] MEDS ORDERED: Ativan 1 MG PO PRN (09:00)
[2022-05-04] MEDS: Ditropan 5 MG PO SCH ×2 (09:04→21:32)
[2022-05-04] MEDS: SYNTHROID 25 MCG PO SCH (09:04)
[2022-05-04] MEDS: ZYLOPRIM 100 MG PO SCH (09:04)
[2022-05-04] MEDS: Lopressor 25MG Tab PO SCH ×2 (09:04→21:31)
[2022-05-04] MEDS: Cymbalta 30 MG Capsule PO SCH (09:04)
[2022-05-04] MEDS: ELAVIL 10 MG PO SCH (09:04)
[2022-05-04] MEDS: Mirapex 0.5 MG Tablet PO SCH ×3 (09:04→21:31)
[2022-05-04] MEDS: Lantus Insulin SQ SCH (09:05)
[2022-05-04] MEDS: Acidophilus TABLET PO SCH ×3 (09:06→21:31)
[2022-05-04] MEDS: NYSTOP POWDER 15 GM TP SCH ×3 (09:15→21:34)
[2022-05-04] MEDS: Santyl OINTMENT TOP SCH (09:46)
[2022-05-04] MEDS ORDERED: NON-FORMULARY ITEM (Insulin Detemir [Levemir] 100 UNIT/ML Vial) SQ SCH (10:00)
[2022-05-04] MEDS ORDERED: NON-FORMULARY ITEM (Azelastine Hcl [Azelastine Hcl] 6 ML Drops) OP SCH (10:00)
[2022-05-04] MEDS ORDERED: Sodium Chloride 0.9% 500 ML 500 ML IV SCH (10:00)
[2022-05-04] MEDS ORDERED: NON-FORMULARY ITEM (Levothyroxine Sodium [Levothyroxine] 25 MCG Capsule) PO SCH (10:00)
[2022-05-04] MEDS ORDERED: NON-FORMULARY ITEM (Duloxetine Hcl [Cymbalta] 60 MG Capsule.Dr) PO SCH (10:00)
[2022-05-04] MEDS ORDERED: Levaquin 250MG/50ML D5W 250 MG/50 ML BAG IV SCH (10:00)
[2022-05-04] MEDS ORDERED: Levofloxacin 500MG/100ML D5W 500 MG/100 ML BAG IV SCH (10:00)
[2022-05-04] MEDS ORDERED: ECOTRIN 81 MG PO SCH (10:00)
[2022-05-04 10:01] LABS: CROSS MATCH (PRBC) COMPATIBLE (COMPATIBLE)
[2022-05-04] MEDS ORDERED: Lasix 20 MG/2 ML IV ONE (12:00)
[2022-05-04] MEDS ORDERED: Golytely Solution 4000 ML PO ONE (15:30)
[2022-05-04] MEDS ORDERED: PHARMACY DOSING REQUIRED: VANCOMYCIN IV STA (17:29)
--- NOTE | 2022-05-04 17:30 | PCM.HP ---
History of Present Illness - Chief Complaint Chief Complaint: UTI, AMS, dehydration History of Present Illness: is a 76 year old female pt with no local MD with PMHx migraine, TIA, HTN, hyperlipidemia, DMII, paroxysmal afib, degen disc dz, Crohn's dz (dx this year?), peripheral neuropathy, and pacemaker (sees Dr. More). She was admitted through ER with UTI, AMS, TIA, dehydration, hypoxia. Also has leg wounds that have been treated by PT - found to have MRSA. Pt seems to be a fair historian, and was oriented to place (thought the date was 05/02/22). She was at home (lives with family) and found to have AMS (was dressing herself in clothes over clothes she had on) - apparently very unusual for her. She remembers "I was out of it," and had done something similar a couple of days before that. She says she got abx for MRSA and another organism, something she was supposed to get IV but never got that. She did have a recent stay at . Was previously at [facility] for 1 yr at some point. At home she's had subjective fevers. Had max temp of 102.6 since her admission. Has continued to be febrile around 101. UA in ER with 51-100 WBC and nitrites. Hgb 8.7 on admission and 7.4 this morning. eGFR initially 48.1 and now 52.7. - Review of Systems Constitutional: Fever (subj at home, obj here) Respiratory: Short Of Breath Cardiac: Edema (chronic, LE) Abdominal/Gastrointestinal: Abdominal Pain ("funny feeling" in epigastrum), Diarrhea (chronic) Genitourinary Symptoms: Urgency Psychological: Depression (since losing her 3 daughters), No Suicidal Ideations Medications & Allergies Home Medications: Home Medication List Allopurinol 100 mg [Zyloprim 100 mg] 100 mg PO DAILY 04/17/22 [History Confirmed 05/03/22] Amitriptyline HCl 10 mg [Elavil 10 mg] 10 mg PO DAILY 04/17/22 [History Confirmed 05/03/22] Aspirin EC 81 mg [Ecotrin 81 mg] 81 mg PO DAILY 04/17/22 [History Confirmed 05/03/22] Atorvastatin Calcium 80 mg PO QHS 04/17/22 [History Confirmed 05/03/22] Azelastine HCl 1 drop OP DAILY 04/17/22 [History Confirmed 05/03/22] Balsalazide Disodium 750 mg PO QHS 04/17/22 [History Confirmed 05/03/22] Calcium Carb, Citrate/Vit D3 [Calcium + D3 ER Tablet] 1 tab PO DAILY 04/17/22 [History Confirmed 05/03/22] Ciclopirox/Skin Cleanser No.28 [Ciclodan 0.77% Cream Kit] 1 applic TOP QHS 04/17/22 [History Confirmed 05/03/22] Collagenase Oint [Santyl OINTMENT] 1 applic TOP DAILY 04/17/22 [History Confirmed 05/03/22] Divalproex Sodium [Depakote] 250 mg PO DAILY 04/17/22 [History Confirmed 05/03/22] Divalproex Sodium [Depakote] 500 mg PO EVENING MEAL 04/17/22 [History Confirmed 05/03/22] Duloxetine HCl 30 mg PO DAILY 04/17/22 [History Confirmed 05/03/22] Duloxetine HCl [Cymbalta] 60 mg PO DAILY 04/17/22 [History Confirmed 05/03/22] Furosemide 80 mg PO DAILY 04/17/22 [History Confirmed 05/03/22] Furosemide 40 mg [Lasix 40 MG] 40 mg PO LUNCH 04/17/22 [History Confirmed 05/03/22] Insulin Lispro [Admelog Solostar] 6 unit SQ AC 04/17/22 [History Confirmed 05/03/22] Levothyroxine Sodium [Levothyroxine] 25 mcg PO DAILY 04/17/22 [History Confirmed 05/03/22] Lipase/Protease/Amylase [Elvis Portillo 24,000 Unit Capsule] 24,000 units PO AC 04/17/22 [History Confirmed 05/03/22] Metoprolol Tartrate 25 mg PO BID 04/17/22 [History Confirmed 05/03/22] Nitroglycerin 0.4 mg SL UD 04/17/22 [History Confirmed 05/03/22] Oxybutynin Chloride 5 mg PO BID 04/17/22 [History Confirmed 05/03/22] Pramipexole Di-HCl [Pramipexole Dihydrochloride] 1 mg PO TID 04/17/22 [History Confirmed 05/03/22] Rivaroxaban [Xarelto] 15 mg PO EVENING MEAL 04/17/22 [History Confirmed 05/03/22] Vitamin B Complex 1 tab PO DAILY 04/17/22 [History Confirmed 05/03/22] Melatonin 10 mg PO QHS 04/18/22 [History Confirmed 05/03/22] Triamcinolone 0.1% Lotion [Kenalog 0.1% Lotion] 1 applic TOP QHS 04/18/22 [History Confirmed 05/03/22] Insulin Detemir [Levemir] 30 unit SQ QAM 05/03/22 [History Confirmed 05/03/22] Nystatin Powder 15 gm [Nystop Powder 15 gm] 1 gm TP TID 05/03/22 [History Confirmed 05/03/22] Allergies/Adverse Reactions: Allergies Allergy/AdvReac Type Severity Reaction Status Date / Time No Known Drug Allergies Allergy Unverified 04/18/22 00:46 - Past Medical History Past Medical History: Yes Neurological History: Migraines, TIA, Other ENT History: No Pertinent History Cardiac History: High Cholesterol, Hypertension, Other Respiratory History: No Pertinent History Endocrine Medical History: Diabetes Type II Musculoskelatal History: No Pertinent History, Degenerative Disk Disease GI Medical History: Crohns Disease, Irritable Bowel History: No Pertinent History Pyscho-Social History: No Pertinent History Reproductive Disorders: No Pertinent History Comment: NEUROPATHY - Female History Are you now?: No - Past Surgical History Past Surgical History: Yes Neuro Surgical History: No Pertinent History Cardiac History: Pacemaker Respiratory Surgery: No Pertinent History GI Surgical History: Appendectomy, Cholecystectomy Genitourinary Surgical Hx: No Pertinent History Musculskeletal Surgical Hx: Joint Replacement, Orthopedic Surgery Female Surgical History: No Pertinent History Other Surgical History: BARIATRIC SURG,CARPAL TUNNEL - Social History Smoking Status: Never smoker Exposure to second hand smoke: Yes Alcohol: None Drug Use: none - Physical Exam Vital Signs: Vital Signs - 24 hr Temp Pulse Resp BP Pulse Ox 05/04/22 16:00 101.5 F 66 20 151/70 95 05/04/22 11:07 101.8 F 92 H 23 115/60 95 05/04/22 07:49 95 05/04/22 07:47 96 05/04/22 06:54 102.4 F 77 20 105/51 95 05/04/22 04:00 101.7 F 74 19 112/51 95 05/04/22 01:58 102 F 05/04/22 00:00 102.2 F 96 H 18 115/53 96 05/03/22 22:29 102.6 F 05/03/22 21:00 102.6 F 05/03/22 19:55 98.2 F 100 H 19 119/53 91 L 05/03/22 19:51 96 General Appearance: no apparent distress, alert Neurologic Exam: cooperative, other (oriented to person and place; thinks it is 05/02/22) Eye Exam: eyes nml inspection Ears, Nose, Throat Exam: moist mucous membranes Neck Exam: normal inspection, non-tender, No lymphadenopathy, No thyromegaly Respiratory Exam: normal breath sounds, lungs clear, No crackles/rales, No rhonchi, No wheezing Cardiovascular Exam: regular rate/rhythm, normal heart sounds, No murmur Gastrointestinal/Abdomen Exam: soft, normal bowel sounds, No tenderness, No distention, No mass, No guarding, No rebound Back Exam: normal inspection, No CVA tenderness, No rash Extremity Exam: normal inspection, No pedal edema, No swelling Wound Assessment: Skin/Wound Assessment Wound/Incision Assessment Start: 05/03/22 12:29 Text: Status: Active Freq: Q6H Protocol: Document 05/04/22 14:00 ERENDIRA (Rec: 05/04/22 14:21 ERENDIRA [id number]) Wound/Incision Assessment Left Anterior Medial Calf Wound Assessment Shift Assessment Wound Type Stasis Ulcer Wound Stage Non Pressure Wound Dressing Status Dry & Intact Drainage Amount None Comment DRESSING CLEAN, DRY, AND INTACT Right Lower Anterior Other Wound Assessment Shift Assessment Wound Type Stasis Ulcer Wound Stage Non Pressure Wound Dressing Status Dry & Intact Primary Dressing Absorbant Pad Secondary Dressing Gauze Roll/Wrap Comment DRESSING CLEAN, DRY, AND INTACT Results - Labs Lab/Micro Results: Lab Results-Last 24 Hours 05/03/22 05/03/22 05/04/22 Range/Units 17:50 20:23 04:27 WBC 5.3 (4.0-10.5) x10^3/uL RBC 3.02 L (4.1-5.4) x10^6/uL Hgb 7.4 L (12.0-16.0) g/dL Hct 24.4 L (35-47) % MCV 80.8 (78-100) fL MCH 24.5 L (26-32) pg MCHC 30.3 L (32-36) g/dL RDW 17.9 H (11.5-14.0) % Plt Count 244 (150-450) x10^3/uL MPV 9.8 (7.5-11.0) fL Gran % 48.1 (36.0-66.0) % Immature Gran % (Auto) 0.2 (0.00-0.4) % Nucleat RBC Rel Count 0.0 (0.00-0.1) % Eos # (Auto) 0.01 (0-0.5) x10^3/uL Immature Gran # (Auto) 0.01 (0.00-0.03) x10^3u/L Absolute Lymphs (auto) 2.15 (1.0-4.6) x10^3/uL Absolute Monos (auto) 0.53 (0.0-1.3) x10^3/uL Absolute Nucleated RBC 0.00 (0.00-0.01) x10^3u/L Lymphocytes % 41.0 (24.0-44.0) % Monocytes % 10.1 (0.0-12.0) % Eosinophils % 0.2 (0.00-5.0) % Basophils % 0.4 (0.0-0.4) % Absolute Granulocytes 2.53 (1.4-6.9) x10^3/uL Basophils # 0.02 (0-0.4) x10^3/uL Sodium (137-145) mmol/L Potassium (3.5-5.1) mmol/L Chloride (98-107) mmol/L Carbon Dioxide (22-30) mmol/L Anion Gap (5-15) MEQ/L BUN (7-17) mg/dL Creatinine (0.52-1.04) mg/dL Estimated GFR ML/MIN Glucose (74-106) mg/dL POC Glucometer 194 H (74 to 106) mg/dL Lactic Acid (0.4-2.0) Calcium (8.4-10.2) mg/dL Total Bilirubin (0.2-1.3) mg/dL AST (14-36) U/L ALT (0-35) U/L Alkaline Phosphatase (38-126) U/L Troponin I < 0.012 (0.000-0.034) ng/mL NT-Pro-B Natriuret Pep (0-900) pg/mL Serum Total Protein (6.3-8.2) g/dL Albumin (3.5-5.0) g/dL Stool Occult Blood (NEGATIVE) Crossmatch (COMPATIBLE) 05/04/22 05/04/22 05/04/22 Range/Units 04:27 04:57 07:15 WBC (4.0-10.5) x10^3/uL RBC (4.1-5.4) x10^6/uL Hgb (12.0-16.0) g/dL Hct (35-47) % MCV (78-100) fL MCH (26-32) pg MCHC (32-36) g/dL RDW (11.5-14.0) % Plt Count (150-450) x10^3/uL MPV (7.5-11.0) fL Gran % (36.0-66.0) % Immature Gran % (Auto) (0.00-0.4) % Nucleat RBC Rel Count (0.00-0.1) % Eos # (Auto) (0-0.5) x10^3/uL Immature Gran # (Auto) (0.00-0.03) x10^3u/L Absolute Lymphs (auto) (1.0-4.6) x10^3/uL Absolute Monos (auto) (0.0-1.3) x10^3/uL Absolute Nucleated RBC (0.00-0.01) x10^3u/L Lymphocytes % (24.0-44.0) % Monocytes % (0.0-12.0) % Eosinophils % (0.00-5.0) % Basophils % (0.0-0.4) % Absolute Granulocytes (1.4-6.9) x10^3/uL Basophils # (0-0.4) x10^3/uL Sodium 132 L (137-145) mmol/L Potassium 4.2 (3.5-5.1) mmol/L Chloride 101 (98-107) mmol/L Carbon Dioxide 25 (22-30) mmol/L Anion Gap 9.4 (5-15) MEQ/L BUN 25 H (7-17) mg/dL Creatinine 1.08 H (0.52-1.04) mg/dL Estimated GFR 52.7 ML/MIN Glucose 201 H (74-106) mg/dL POC Glucometer 258 H (74 to 106) mg/dL Lactic Acid 2.2 H (0.4-2.0) Calcium 7.5 L (8.4-10.2) mg/dL Total Bilirubin 0.50 (0.2-1.3) mg/dL AST 25 (14-36) U/L ALT 15 (0-35) U/L Alkaline Phosphatase 76 (38-126) U/L Troponin I (0.000-0.034) ng/mL NT-Pro-B Natriuret Pep 716 (0-900) pg/mL Serum Total Protein 6.2 L (6.3-8.2) g/dL Albumin 3.1 L (3.5-5.0) g/dL Stool Occult Blood (NEGATIVE) Crossmatch (COMPATIBLE) 05/04/22 05/04/22 05/04/22 Range/Units 09:30 10:00 11:39 WBC (4.0-10.5) x10^3/uL RBC (4.1-5.4) x10^6/uL Hgb (12.0-16.0) g/dL Hct (35-47) % MCV (78-100) fL MCH (26-32) pg MCHC (32-36) g/dL RDW (11.5-14.0) % Plt Count (150-450) x10^3/uL MPV (7.5-11.0) fL Gran % (36.0-66.0) % Immature Gran % (Auto) (0.00-0.4) % Nucleat RBC Rel Count (0.00-0.1) % Eos # (Auto) (0-0.5) x10^3/uL Immature Gran # (Auto) (0.00-0.03) x10^3u/L Absolute Lymphs (auto) (1.0-4.6) x10^3/uL Absolute Monos (auto) (0.0-1.3) x10^3/uL Absolute Nucleated RBC (0.00-0.01) x10^3u/L Lymphocytes % (24.0-44.0) % Monocytes % (0.0-12.0) % Eosinophils % (0.00-5.0) % Basophils % (0.0-0.4) % Absolute Granulocytes (1.4-6.9) x10^3/uL Basophils # (0-0.4) x10^3/uL Sodium (137-145) mmol/L Potassium (3.5-5.1) mmol/L Chloride (98-107) mmol/L Carbon Dioxide (22-30) mmol/L Anion Gap (5-15) MEQ/L BUN (7-17) mg/dL Creatinine (0.52-1.04) mg/dL Estimated GFR ML/MIN Glucose (74-106) mg/dL POC Glucometer 193 H (74 to 106) mg/dL Lactic Acid 2.4 H (0.4-2.0) Calcium (8.4-10.2) mg/dL Total Bilirubin (0.2-1.3) mg/dL AST (14-36) U/L ALT (0-35) U/L Alkaline Phosphatase (38-126) U/L Troponin I (0.000-0.034) ng/mL NT-Pro-B Natriuret Pep (0-900) pg/mL Serum Total Protein (6.3-8.2) g/dL Albumin (3.5-5.0) g/dL Stool Occult Blood (NEGATIVE) Crossmatch COMPATIBLE (COMPATIBLE) 05/04/22 05/04/22 05/04/22 Range/Units 13:53 16:11 Unknown WBC (4.0-10.5) x10^3/uL RBC (4.1-5.4) x10^6/uL Hgb (12.0-16.0) g/dL Hct (35-47) % MCV (78-100) fL MCH (26-32) pg MCHC (32-36) g/dL RDW (11.5-14.0) % Plt Count (150-450) x10^3/uL MPV (7.5-11.0) fL Gran % (36.0-66.0) % Immature Gran % (Auto) (0.00-0.4) % Nucleat RBC Rel Count (0.00-0.1) % Eos # (Auto) (0-0.5) x10^3/uL Immature Gran # (Auto) (0.00-0.03) x10^3u/L Absolute Lymphs (auto) (1.0-4.6) x10^3/uL Absolute Monos (auto) (0.0-1.3) x10^3/uL Absolute Nucleated RBC (0.00-0.01) x10^3u/L Lymphocytes % (24.0-44.0) % Monocytes % (0.0-12.0) % Eosinophils % (0.00-5.0) % Basophils % (0.0-0.4) % Absolute Granulocytes (1.4-6.9) x10^3/uL Basophils # (0-0.4) x10^3/uL Sodium (137-145) mmol/L Potassium (3.5-5.1) mmol/L Chloride (98-107) mmol/L Carbon Dioxide (22-30) mmol/L Anion Gap (5-15) MEQ/L BUN (7-17) mg/dL Creatinine (0.52-1.04) mg/dL Estimated GFR ML/MIN Glucose (74-106) mg/dL POC Glucometer 182 H (74 to 106) mg/dL Lactic Acid (0.4-2.0) Calcium (8.4-10.2) mg/dL Total Bilirubin (0.2-1.3) mg/dL AST (14-36) U/L ALT (0-35) U/L Alkaline Phosphatase (38-126) U/L Troponin I (0.000-0.034) ng/mL NT-Pro-B Natriuret Pep (0-900) pg/mL Serum Total Protein (6.3-8.2) g/dL Albumin (3.5-5.0) g/dL Stool Occult Blood POSITIVE A (NEGATIVE) Crossmatch COMPATIBLE (COMPATIBLE) Microbiology 05/03/22 16:06 Wound Culture - Preliminary Chin GRAM NEGATIVE ID AND SENSITIVITY PENDING 05/03/22 10:04 Urine Culture - Preliminary Catherized GRAM NEGATIVE ID AND SENSITIVITY PENDING Accuchecks Date 05/04/22 Date 05/04/22 Date 05/04/22 Date 05/03/22 Time 21:00 - Radiology Impressions Radiology Exams & Impressions: Radiology Procedures Category Date Time Status CHEST 1 VIEW (PORTABLE) Stat Exams 05/03/22 08:46 Completed HEAD WITHOUT CONTRAST [CT] Stat Exams 05/03/22 08:47 Completed Assessment/Plan (1) UTI (urinary tract infection) Current Visit: Yes Status: Acute Qualifiers: Urinary tract infection type: acute cystitis Hematuria presence: without hematuria Qualified Code(s): N30.00 - Acute cystitis without hematuria Assessment & Plan: culture pending. on levaquin. Code(s): N39.0 - URINARY TRACT INFECTION, SITE NOT SPECIFIED (2) AMS (altered mental status) Current Visit: Yes Status: Acute Qualifiers: Altered mental status type: delirium Qualified Code(s): R41.0 - Disor ientation, unspecified Assessment & Plan: I think this likely explains her disorientation last night, as opposed to TIA. Code(s): R41.82 - ALTERED MENTAL STATUS, UNSPECIFIED (3) Hypoxemia Current Visit: Yes Status: Acute Code(s): R09.02 - HYPOXEMIA (4) Wound of lower extremity Current Visit: Yes Status: Chronic Qualifiers: Encounter type: initial encounter Laterality: unspecified laterality Qualified Code(s): S81.809A - Unspecified open wound, unspecified lower leg, initial encounter Assessment & Plan: may be worsening and causing the fever - adding vancomycin to levaquin. Code(s): S81.809A - UNSPECIFIED OPEN WOUND, UNSPECIFIED LOWER LEG, INIT ENCNTR (5) Dehydration Current Visit: Yes Status: Acute Code(s): E86.0 - DEHYDRATION (6) Fever Current Visit: Yes Status: Acute Qualifiers: Fever type: unspecified Qualified Code(s): R50.9 - Fever, unspecified Assessment & Plan: blood cultures and wound culture (legs) pending. UCx pending. Code(s): R50.9 - FEVER, UNSPECIFIED (7) Anemia Current Visit: No Status: Chronic Qualifiers: Anemia type: unspecified type Qualified Code(s): D64.9 - Anemia, unspecified Assessment & Plan: Transfused 2 units PRBC. Fecal occult blood positive - will get EGD/colon oscopy. I spoke with Dr. More - as long as pt is in sinus rhythm, ok to hold her xarelto (will need held for GI workup at any rate). Code(s): D64.9 - ANEMIA, UNSPECIFIED (8) CAD (coronary artery disease) Current Visit: Yes Status: Chronic Qualifiers: Coronary Disease-Associated Artery/Lesion type: [place] artery [place] vs. transplanted heart: [place] heart Associated angina: without angina Qualified Code(s): I25.10 - Atherosclerotic heart disease of [place] coronary artery without angina pectoris Assessment & Plan: has a stent Code(s): I25.10 - ATHSCL HEART DISEASE OF [place] CORONARY ARTERY W/O ANG PCTRS (9) Diabetes mellitus type II, controlled Current Visit: Yes Status: Chronic Qualifiers: Diabetes mellitus nursing home insulin use: with nursing home use Diabetes mellitus complication status: with skin complications Diabetes mellitus complication detail: with other skin ulcer Qualified Code(s): E11.622 - Type 2 diabetes mellitus with other skin ulcer; 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
[2022-05-04] MEDS ORDERED: VANCOMYCIN 1.5 GRAM/300 ML BAG 1.5 GM/300 ML PIGGYBACK IV SCH (18:15)
[2022-05-04 18:30] LABS: Hemoglobin 9.6 g/dL (12.0-16.0)
[2022-05-04] MEDS: ZOCOR 20MG PO SCH (21:31)
[2022-05-04] MEDS: MELATONIN PO SCH (21:32)
[2022-05-04] MEDS: KENALOG 0.1% LOTION TP SCH (21:32)
[2022-05-04] MEDS: LOPROX TOP SCH (21:33)
[2022-05-05] MEDS: TYLENOL 325 MG PO PRN (03:01)
[2022-05-05] MEDS: Sodium Chloride 0.9% 1000 ML 1,000 ML IV SCH ×3 (05:29→15:17)
[2022-05-05 07:20] LABS: ANION GAP 7.3 MEQ/L (5-15); Calcium 7.7 mg/dL (8.4-10.2); Creatinine 1 0.97 mg/dL (0.52-1.04); EST GLOMERULAR FILTRATION RATE 59.7 ML/MIN
[2022-05-05 07:59] LABS: Hematocrit 31.7 % (35-47); Hemoglobin 9.6 g/dL (12.0-16.0); Mean Cell Volume 84.3 fL (78-100); Mean Corpuscular Hemoglobin 25.5 pg (26-32); Mean Corpuscular Hgb Concent. 30.3 g/dL (32-36); Mean Platelet Volume 9.8 fL (7.5-11.0); Platelet Count 221 x10^3/uL (150-450); Red Blood Count 3.76 x10^6/uL (4.1-5.4); Red Cell Distribution Width 17.2 % (11.5-14.0); White Blood Count 5.2 x10^3/uL (4.0-10.5)
[2022-05-05] MEDS: ZENPEP DR 5,000 UNIT CAPSULE PO SCH ×3 (08:04→15:17)
--- NOTE | 2022-05-05 09:00 | PCM.NOTE ---
Date and Time: 05/05/22 0854 Subjective Assessment: Her max temp was yesterday morning, 102.4. This morning it is 100.6. Added vancomycin last night. Getting EGD and colonoscopy today but her prep has not been good. Said it was "May 05, 2021... 2021." Oriented to place and person as well. - Review of Systems Constitutional: Fever Objective Exam General Appearance: no apparent distress, alert Neurologic Exam: oriented x 3, cooperative Skin Exam: normal color, warm, dry Wound Assessment: Skin/Wound Assessment Wound/Incision Assessment Start: 05/03/22 12:29 Text: Status: Active Freq: Q6H Protocol: Document 05/05/22 08:00 AMINAH (Rec: 05/05/22 08:17 AMINAH [id number]) Wound/Incision Assessment Left Anterior Medial Calf Wound Assessment Shift Assessment Wound Type Stasis Ulcer Wound Stage Non Pressure Wound Dressing Status Dry & Intact Drainage Amount None Comment DRESSING CLEAN, DRY, AND INTACT Right Lower Anterior Other Wound Assessment Shift Assessment Wound Type Stasis Ulcer Wound Stage Non Pressure Wound Dressing Status Dry & Intact Primary Dressing Absorbant Pad Secondary Dressing Gauze Roll/Wrap Comment DRESSING CLEAN, DRY, AND INTACT Wound Photo Date: 05/03/22 Time: 15:54 Comment: picture taken Eye Exam: eyes nml inspection Ears, Nose, Throat Exam: moist mucous membranes Neck Exam: normal inspection Respiratory Exam: normal breath sounds, lungs clear, No crackles/rales, No rhonchi, No wheezing Cardiovascular Exam: regular rate/rhythm, normal heart sounds, No murmur Gastrointestinal/Abdomen Exam: soft, normal bowel sounds, No tenderness, No distention, No mass, No guarding, No rebound Extremity Exam: other (legs wrapped bilat; toes appear neurovascularly intact) Back Exam: normal inspection, No rash OBJECTIVE DATA Vital Signs: Vital Signs - 24 hr Temp Pulse Resp BP Pulse Ox 05/05/22 07:48 96 05/05/22 07:11 99.9 F 60 17 122/60 97 05/05/22 07:09 99.9 F 60 17 122/60 97 05/05/22 03:52 100.6 F 59 L 20 90/45 96 05/05/22 00:00 100.8 F 90 19 124/68 95 05/04/22 19:38 101.7 F 99 H 20 133/63 92 L 05/04/22 19:34 95 05/04/22 16:00 101.5 F 66 20 151/70 95 05/04/22 11:07 101.8 F 92 H 23 115/60 95 Pain Assessment - Last Documented Pain Intensity 0 Pain Scale Used 0-10 Pain Scale Intake and Output: Intake & Output 05/02/22 05/03/22 05/04/22 05/05/22 11:59 11:59 11:59 11:59 Intake Total 4772 3395 Output Total 1200 2150 Balance 3572 1245 Weight 126 kg 129.5 kg 129.5 kg Lab Results: Lab Results-Last 24 Hours 05/04/22 05/04/22 05/04/22 Range/Units 09:30 10:00 11:39 WBC (4.0-10.5) x10^3/uL RBC (4.1-5.4) x10^6/uL Hgb (12.0-16.0) g/dL Hct (35-47) % MCV (78-100) fL MCH (26-32) pg MCHC (32-36) g/dL RDW (11.5-14.0) % Plt Count (150-450) x10^3/uL MPV (7.5-11.0) fL Sodium (137-145) mmol/L Potassium (3.5-5.1) mmol/L Chloride (98-107) mmol/L Carbon Dioxide (22-30) mmol/L Anion Gap (5-15) MEQ/L BUN (7-17) mg/dL Creatinine (0.52-1.04) mg/dL Estimated GFR ML/MIN Glucose (74-106) mg/dL POC Glucometer 193 H (74 to 106) mg/dL Lactic Acid 2.4 H (0.4-2.0) Calcium (8.4-10.2) mg/dL Stool Occult Blood (NEGATIVE) Crossmatch COMPATIBLE (COMPATIBLE) 05/04/22 05/04/22 05/04/22 Range/Units 13:53 16:11 18:28 WBC (4.0-10.5) x10^3/uL RBC (4.1-5.4) x10^6/uL Hgb 9.6 L D (12.0-16.0) g/dL Hct 31.0 L (35-47) % MCV (78-100) fL MCH (26-32) pg MCHC (32-36) g/dL RDW (11.5-14.0) % Plt Count (150-450) x10^3/uL MPV (7.5-11.0) fL Sodium (137-145) mmol/L Potassium (3.5-5.1) mmol/L Chloride (98-107) mmol/L Carbon Dioxide (22-30) mmol/L Anion Gap (5-15) MEQ/L BUN (7-17) mg/dL Creatinine (0.52-1.04) mg/dL Estimated GFR ML/MIN Glucose (74-106) mg/dL POC Glucometer 182 H (74 to 106) mg/dL Lactic Acid (0.4-2.0) Calcium (8.4-10.2) mg/dL Stool Occult Blood POSITIVE A (NEGATIVE) Crossmatch (COMPATIBLE) 05/04/22 05/04/22 05/05/22 Range/Units 20:33 Unknown 06:58 WBC (4.0-10.5) x10^3/uL RBC (4.1-5.4) x10^6/uL Hgb (12.0-16.0) g/dL Hct (35-47) % MCV (78-100) fL MCH (26-32) pg MCHC (32-36) g/dL RDW (11.5-14.0) % Plt Count (150-450) x10^3/uL MPV (7.5-11.0) fL Sodium (137-145) mmol/L Potassium (3.5-5.1) mmol/L Chloride (98-107) mmol/L Carbon Dioxide (22-30) mmol/L Anion Gap (5-15) MEQ/L BUN (7-17) mg/dL Creatinine (0.52-1.04) mg/dL Estimated GFR ML/MIN Glucose (74-106) mg/dL POC Glucometer 150 H 98 (74 to 106) mg/dL Lactic Acid (0.4-2.0) Calcium (8.4-10.2) mg/dL Stool Occult Blood (NEGATIVE) Crossmatch COMPATIBLE (COMPATIBLE) 05/05/22 05/05/22 Range/Units 07:08 07:08 WBC 5.2 (4.0-10.5) x10^3/uL RBC 3.76 L (4.1-5.4) x10^6/uL Hgb 9.6 L (12.0-16.0) g/dL Hct 31.7 L (35-47) % MCV 84.3 (78-100) fL MCH 25.5 L (26-32) pg MCHC 30.3 L (32-36) g/dL RDW 17.2 H (11.5-14.0) % Plt Count 221 (150-450) x10^3/uL MPV 9.8 (7.5-11.0) fL Sodium 135 L (137-145) mmol/L Potassium 4.0 (3.5-5.1) mmol/L Chloride 104 (98-107) mmol/L Carbon Dioxide 27 (22-30) mmol/L Anion Gap 7.3 (5-15) MEQ/L BUN 17 (7-17) mg/dL Creatinine 0.97 (0.52-1.04) mg/dL Estimated GFR 59.7 ML/MIN Glucose 99 (74-106) mg/dL POC Glucometer (74 to 106) mg/dL Lactic Acid (0.4-2.0) Calcium 7.7 L (8.4-10.2) mg/dL Stool Occult Blood (NEGATIVE) Crossmatch (COMPATIBLE) Radiology Exams: Radiology Procedures Category Date Time Status CHEST 1 VIEW (PORTABLE) Stat Exams 05/03/22 08:46 Completed HEAD WITHOUT CONTRAST [CT] Stat Exams 05/03/22 08:47 Completed Multi-Disciplinary Progress Notes: Multi-Disciplinary Progress Notes 05/05/22 08:41 Case Management Note by Christelle Olmos REVIEWED CHART- PATIENT CURRENTLY ON 2L/NC- DOES NOT WEAR AT HOME. PLACED ORDER FOR RT TO WEAN OFF OXYGEN. OTHERWISE- DO NOT ANTICIPATE ANY NEW/DIFFERENT NEEDS AT TIME OF DC. Initialized on 05/05/22 08:41 - END OF NOTE 05/04/22 10:32 Case Management Note by Christelle Olmos PATIENT HAS [facility]. THEY WERE NOTIFIED PATIENT HERE UNDER OBS. THEY WILL NEED NOTIFIED AT TIME OF DC AT [phone], THEY WILL NEED FAXED THE DC INSTRUCTIONS, DC MED LIST AND DC SUMMARY ( IF AVAILABLE) TO [phone] Initialized on 05/04/22 10:32 - END OF NOTE 05/04/22 10:23 Physical Therapy Note by Latasha(Darren#[id number])Rhonda LAYERED COMPRESSION DRESSINGS INTACT THIS A.M. WILL CHANGE TOMORROW IF REMAIN CLEAN AND INTACT TODAY. Initialized on 05/04/22 10:23 - END OF NOTE Assessment/Plan (1) UTI (urinary tract infection) Current Visit: Yes Status: Acute Qualifiers: Urinary tract infection type: acute cystitis Hematuria presence: without hematuria Qualified Code(s): N30.00 - Acute cystitis without hematuria Assessment & Plan: On levaquin day # 3. Her culture shows gram neg rods. Code(s): N39.0 - URINARY TRACT INFECTION, SITE NOT SPECIFIED (2) Wound of lower extremity Current Visit: Yes Status: Chronic Qualifiers: Encounter type: initial encounter Laterality: unspecified laterality Qualified Code(s): S81.809A - Unspecified open wound, unspecified lower leg, initial encounter Assessment & Plan: on levaquin; culture + for pseudomonas which is resistant to levaquin. Consulti ng with pharmacy about antibiotic changes. Code(s): S81.809A - UNSPECIFIED OPEN WOUND, UNSPECIFIED LOWER LEG, INIT ENCNTR (3) AMS (altered mental status) Current Visit: Yes Status: Acute Qualifiers: Altered mental status type: delirium Qualified Code(s): R41.0 - Disorientation, unspecified Assessment & Plan: much improved, perhaps even resolved. Code(s): R41.82 - ALTERED MENTAL STATUS, UNSPECIFIED (4) Hypoxemia Current Visit: Yes Status: Acute Code(s): R09.02 - HYPOXEMIA (5) Dehydration Current Visit: Yes Status: Resolved Code(s): E86.0 - DEHYDRATION (6) Fever Current Visit: Yes Status: Acute Qualifiers: Fever type: unspecified Qualified Code(s): R50.9 - Fever, unspecified Assessment & Plan: improving. Code(s): R50.9 - FEVER, UNSPECIFIED (7) Anemia Current Visit: No Status: Acute Qualifiers: Anemia type: unspecified type Qualified Code(s): D64.9 - Anemia, unspecified Assessment & Plan: post 2 units PRBC, her Hgb is 9.6 this morning. EGD and colonoscopy; may need to have tomorrow as her prep is not good. Code(s): D64.9 - ANEMIA, UNSPECIFIED (8) CAD (coronary artery disease) Current Visit: Yes Status: Chronic Qualifiers: Coronary Disease-Associated Artery/Lesion type: [place] artery [place] vs. transplanted heart: [place] heart Associated angina: without angina Qualified Code(s): I25.10 - Atherosclerotic heart disease of [place] coronary artery without angina pectoris Code(s): I25.10 - ATHSCL HEART DISEASE OF [place] CORONARY ARTERY W/O ANG PCTRS (9) Diabetes mellitus type II, controlled Current Visit: Yes Status: Chronic Qualifiers: Diabetes mellitus senior care insulin use: with senior care use Diabetes mellitus complication status: with skin complications Diabetes mellitus complication detail: with other skin ulcer Qualified Code(s): E11.622 - Type 2 diabetes mellitus with other skin ulcer; Z79.4 - prison (current) use of insulin Code(s): E11.9 - TYPE 2 DIABETES MELLITUS WITHOUT COMPLICATIONS (10) Pacemaker Current Visit: Yes Status: Chronic Code(s): Z95.0 - PRESENCE OF CARDIAC PACEMAKER (11) Paroxysmal atrial fibrillation Current Visit: Yes Status: Chronic Code(s): I48.0 - PAROXYSMAL ATRIAL FIBRILLATION
[2022-05-05] MEDS: Acidophilus TABLET PO SCH ×3 (09:48→21:32)
[2022-05-05] MEDS: Lantus Insulin SQ SCH (09:48)
[2022-05-05] MEDS ORDERED: Xylocaine-Mpf 2% 5 Ml Vial ONE (10:25)
[2022-05-05] MEDS ORDERED: DIPRIVAN 200 MG/20 ML IV ONE (10:25)
[2022-05-05] MEDS: NYSTOP POWDER 15 GM TP SCH ×3 (10:25→13:59)
[2022-05-05] MEDS: Lopressor 25MG Tab PO SCH ×2 (10:25→21:32)
[2022-05-05] MEDS: Santyl OINTMENT TOP SCH (10:26)
--- NOTE | 2022-05-05 10:33 | PCM.CONS ---
History of Present Illness - Reason for Consult Chief Complaint: UTI, AMS, dehydration Requesting Provider: GILSON FELIX Consulting Provider: DAXA TOTH MD History of Present Illness: hx per chart review and d/w pt 76yo female is now oriented but was sent to hospital due to AMS, fever, being treated with abx, UTI, LE wounds cellulitis. states she was diagnosed this year by a GI in [place] several months ago. Is not haveing bloody or diarrhea stools prior to presentation but its unclear how reliable she is. She does have anemia with a pretty stable hemoglobin without frankly bloody bms here. Did not tolerate a bowel prep yesterday. no n/v. no abdominal pain. "History & Physical Patient Name: MORAIMA FOWLER Date of : 1945 Patient Status: Observation Attending Provider: GILSON FELIX Date: 05/04/22 17:25 Initialization Date: 05/04/22 17:25 History of Present Illness - Chief Complaint Chief Complaint: UTI, AMS, dehydration History of Present Illness: is a 76 year old female pt with no local MD with PMHx migraine, TIA, HTN, hyperlipidemia, DMII, paroxysmal afib, degen disc dz, Crohn's dz (dx this year?), peripheral neuropathy, and pacemaker (sees Dr. More). She was admitted through ER with UTI, AMS, TIA, dehydration, hypoxia. Also has leg wounds that have been treated by PT - found to have MRSA. Pt seems to be a fair historian, and was oriented to place (thought the date was 05/02/22). She was at home (lives with family) and found to have AMS (was dressing herself in clothes over clothes she had on) - apparently very unusual for her. She remembers "I was out of it," and had done something similar a couple of days before that. She says she got abx for MRSA and another organism, something she was supposed to get IV but never got that. She did have a recent stay at . Was previously at [facility] for 1 yr at some point. At home she's had subjective fevers. Had max temp of 102.6 since her admission. Has continued to be febrile around 101. UA in ER with 51-100 WBC and nitrites. Hgb 8.7 on admission and 7.4 this morning. eGFR initially 48.1 and now 52.7. - Review of Systems Constitutional: Fever (subj at home, obj here) Respiratory: Short Of Breath Cardiac: Edema (chronic, LE) Abdominal/Gastrointestinal: Abdominal Pain ("funny feeling" in epigastrum), Diarrhea (chronic) Genitourinary Symptoms: Urgency Psychological: Depression (since losing her 3 daughters), No Suicidal Ideations" Medications & Allergies Home Medications: Home Medication List Allopurinol 100 mg [Zyloprim 100 mg] 100 mg PO DAILY 04/17/22 [History Confirmed 05/03/22] Amitriptyline HCl 10 mg [Elavil 10 mg] 10 mg PO DAILY 04/17/22 [History Confirmed 05/03/22] Aspirin EC 81 mg [Ecotrin 81 mg] 81 mg PO DAILY 04/17/22 [History Confirmed 05/03/22] Atorvastatin Calcium 80 mg PO QHS 04/17/22 [History Confirmed 05/03/22] Azelastine HCl 1 drop OP DAILY 04/17/22 [History Confirmed 05/03/22] Balsalazide Disodium 750 mg PO QHS 04/17/22 [History Confirmed 05/03/22] Calcium Carb, Citrate/Vit D3 [Calcium + D3 ER Tablet] 1 tab PO DAILY 04/17/22 [History Confirmed 05/03/22] Ciclopirox/Skin Cleanser No.28 [Ciclodan 0.77% Cream Kit] 1 applic TOP QHS 04/17/22 [History Confirmed 05/03/22] Collagenase Oint [Santyl OINTMENT] 1 applic TOP DAILY 04/17/22 [History Confirmed 05/03/22] Divalproex Sodium [Depakote] 250 mg PO DAILY 04/17/22 [History Confirmed 05/03/22] Divalproex Sodium [Depakote] 500 mg PO EVENING MEAL 04/17/22 [History Confirmed 05/03/22] Duloxetine HCl 30 mg PO DAILY 04/17/22 [History Confirmed 05/03/22] Duloxetine HCl [Cymbalta] 60 mg PO DAILY 04/17/22 [History Confirmed 05/03/22] Furosemide 80 mg PO DAILY 04/17/22 [History Confirmed 05/03/22] Furosemide 40 mg [Lasix 40 MG] 40 mg PO LUNCH 04/17/22 [History Confirmed 05/03/22] Insulin Lispro [Admelog Solostar] 6 unit SQ AC 04/17/22 [History Confirmed 05/03/22] Levothyroxine Sodium [Levothyroxine] 25 mcg PO DAILY 04/17/22 [History Confirmed 05/03/22] Lipase/Protease/Amylase [Elvis Portillo 24,000 Unit Capsule] 24,000 units PO AC 04/17/22 [History Confirmed 05/03/22] Metoprolol Tartrate 25 mg PO BID 04/17/22 [History Confirmed 05/03/22] Nitroglycerin 0.4 mg SL UD 04/17/22 [History Confirmed 05/03/22] Oxybutynin Chloride 5 mg PO BID 04/17/22 [History Confirmed 05/03/22] Pramipexole Di-HCl [Pramipexole Dihydrochloride] 1 mg PO TID 04/17/22 [History Confirmed 05/03/22] Rivaroxaban [Xarelto] 15 mg PO EVENING MEAL 04/17/22 [History Confirmed 05/03/22] Vitamin B Complex 1 tab PO DAILY 04/17/22 [History Confirmed 05/03/22] Melatonin 10 mg PO QHS 04/18/22 [History Confirmed 05/03/22] Triamcinolone 0.1% Lotion [Kenalog 0.1% Lotion] 1 applic TOP QHS 04/18/22 [History Confirmed 05/03/22] Insulin Detemir [Levemir] 30 unit SQ QAM 05/03/22 [History Confirmed 05/03/22] Nystatin Powder 15 gm [Nystop Powder 15 gm] 1 gm TP TID 05/03/22 [History Confirmed 05/03/22] Allergies/Adverse Reactions: Allergies Allergy/AdvReac Type Severity Reaction Status Date / Time No Known Drug Allergies Allergy Unverified 04/18/22 00:46 - Past Medical History Past Medical History: Yes Neurological History: Migraines, TIA, Other ENT History: No Pertinent History Cardiac History: High Cholesterol, Hypertension, Other Respiratory History: No Pertinent History Endocrine Medical History: Diabetes Type II Musculoskelatal History: No Pertinent History, Degenerative Disk Disease GI Medical History: Crohns Disease, Irritable Bowel History: No Pertinent History Pyscho-Social History: No Pertinent History Reproductive Disorders: No Pertinent History Comment: NEUROPATHY - Female History Are you now?: No - Past Surgical History Past Surgical History: Yes Neuro Surgical History: No Pertinent History Cardiac History: Pacemaker Respiratory Surgery: No Pertinent History GI Surgical History: Appendectomy, Cholecystectomy Genitourinary Surgical Hx: No Pertinent History Musculskeletal Surgical Hx: Joint Replacement, Orthopedic Surgery Female Surgical History: No Pertinent History Other Surgical History: BARIATRIC SURG,CARPAL TUNNEL - Social History Smoking Status: Never smoker Exposure to second hand smoke: Yes Alcohol: None Drug Use: none - Physical Exam Vital Signs: Vital Signs - 24 hr Temp Pulse Resp BP Pulse Ox 05/05/22 07:48 96 05/05/22 07:11 99.9 F 60 17 122/60 97 05/05/22 07:09 99.9 F 60 17 122/60 97 05/05/22 03:52 100.6 F 59 L 20 90/45 96 05/05/22 00:00 100.8 F 90 19 124/68 95 05/04/22 19:38 101.7 F 99 H 20 133/63 92 L 05/04/22 19:34 95 05/04/22 16:00 101.5 F 66 20 151/70 95 05/04/22 11:07 101.8 F 92 H 23 115/60 95 General Appearance: no apparent distress Neurologic Exam: alert, oriented x 3, cooperative Eye Exam: No scleral icterus Neck Exam: normal inspection Respiratory Exam: No respiratory distress Cardiovascular Exam: regular rate/rhythm Gastrointestinal/Abdomen Exam: soft, No tenderness, No distention (abd obese, soft, umbo hernia soft, partially reducible feels like chronic incarc fat. LE dressings in place cap refill <1s. wiggles toes.) Wound Assessment: Skin/Wound Assessment Wound/Incision Assessment Start: 05/03/22 12:29 Text: Status: Active Freq: Q6H Protocol: Document 05/05/22 08:00 AMINAH (Rec: 05/05/22 08:17 JM [id number]) Wound/Incision Assessment Left Anterior Medial Calf Wound Assessment Shift Assessment Wound Type Stasis Ulcer Wound Stage Non Pressure Wound Dressing Status Dry & Intact Drainage Amount None Comment DRESSING CLEAN, DRY, AND INTACT Right Lower Anterior Other Wound Assessment Shift Assessment Wound Type Stasis Ulcer Wound Stage Non Pressure Wound Dressing Status Dry & Intact Primary Dressing Absorbant Pad Secondary Dressing Gauze Roll/Wrap Comment DRESSING CLEAN, DRY, AND INTACT Wound Photo Date: 05/03/22 Time: 15:54 Comment: picture taken Results - Labs Lab/Micro Results: Lab Results-Last 24 Hours 05/04/22 05/04/22 05/04/22 Range/Units 11:39 13:53 16:11 WBC (4.0-10.5) x10^3/uL RBC (4.1-5.4) x10^6/uL Hgb (12.0-16.0) g/dL Hct (35-47) % MCV (78-100) fL MCH (26-32) pg MCHC (32-36) g/dL RDW (11.5-14.0) % Plt Count (150-450) x10^3/uL MPV (7.5-11.0) fL Sodium (137-145) mmol/L Potassium (3.5-5.1) mmol/L Chloride (98-107) mmol/L Carbon Dioxide (22-30) mmol/L Anion Gap (5-15) MEQ/L BUN (7-17) mg/dL Creatinine (0.52-1.04) mg/dL Estimated GFR ML/MIN Glucose (74-106) mg/dL POC Glucometer 193 H 182 H (74 to 106) mg/dL Calcium (8.4-10.2) mg/dL Stool Occult Blood POSITIVE A (NEGATIVE) 05/04/22 05/04/22 05/05/22 Range/Units 18:28 20:33 06:58 WBC (4.0-10.5) x10^3/uL RBC (4.1-5.4) x10^6/uL Hgb 9.6 L D (12.0-16.0) g/dL Hct 31.0 L (35-47) % MCV (78-100) fL MCH (26-32) pg MCHC (32-36) g/dL RDW (11.5-14.0) % Plt Count (150-450) x10^3/uL MPV (7.5-11.0) fL Sodium (137-145) mmol/L Potassium (3.5-5.1) mmol/L Chloride (98-107) mmol/L Carbon Dioxide (22-30) mmol/L Anion Gap (5-15) MEQ/L BUN (7-17) mg/dL Creatinine (0.52-1.04) mg/dL Estimated GFR ML/MIN Glucose (74-106) mg/dL POC Glucometer 150 H 98 (74 to 106) mg/dL Calcium (8.4-10.2) mg/dL Stool Occult Blood (NEGATIVE) 05/05/22 05/05/22 Range/Units 07:08 07:08 WBC 5.2 (4.0-10.5) x10^3/uL RBC 3.76 L (4.1-5.4) x10^6/uL Hgb 9.6 L (12.0-16.0) g/dL Hct 31.7 L (35-47) % MCV 84.3 (78-100) fL MCH 25.5 L (26-32) pg MCHC 30.3 L (32-36) g/dL RDW 17.2 H (11.5-14.0) % Plt Count 221 (150-450) x10^3/uL MPV 9.8 (7.5-11.0) fL Sodium 135 L (137-145) mmol/L Potassium 4.0 (3.5-5.1) mmol/L Chloride 104 (98-107) mmol/L Carbon Dioxide 27 (22-30) mmol/L Anion Gap 7.3 (5-15) MEQ/L BUN 17 (7-17) mg/dL Creatinine 0.97 (0.52-1.04) mg/dL Estimated GFR 59.7 ML/MIN Glucose 99 (74-106) mg/dL POC Glucometer (74 to 106) mg/dL Calcium 7.7 L (8.4-10.2) mg/dL Stool Occult Blood (NEGATIVE) Microbiology 05/03/22 16:06 Wound Culture - Final Chin Pseudomonas Aeruginosa 05/03/22 09:47 Blood Culture - Preliminary Blood NO GROWTH TO DATE 05/03/22 09:24 Blood Culture - Preliminary Blood NO GROWTH TO DATE 05/03/22 10:04 Urine Culture - Preliminary Catherized GRAM NEGATIVE ID AND SENSITIVITY PENDING Accuchecks Date 05/05/22 Date 05/04/22 Date 05/04/22 Date 05/04/22 Time 20:45 - Other Procedures and Tests Respiratory Therapy 05/05/22 08:40 RT Miscellaneous Order ROUTINE Assessment/Plan (1) GIB (gastrointestinal bleeding) Current Visit: Yes Status: Acute Assessment & Plan: 76yo female primarily presents with AMS which has improved with medical treatment, subjectively was diagnosed with crohns this year by GI in [place] but do not have those records. anemic, hemoccult was positive. She is having no abdominal pain and a benign exam to suggest intraabdominal pathology and there are other sources for her infectious presentation. -EGD to evaluate for GIB. -obtain c scope records from GI in [place]. Since she has been recently scoped and is following with GI we would likely defer repeat colonoscopy to them unless she is having acute bleeding or hemoglobin drop inpatient in which case please reconsult us for inpatient colonoscopy. . Code(s): K92.2 - GASTROINTESTINAL HEMORRHAGE, UNSPECIFIED
[2022-05-05] MEDS: PIPERACILLIN/TAZOBACTAM 3.375 GM in Sodium Chloride 100ML MINI-BAG PLUS 100 ML IV SCH ×3 (10:50→23:39)
[2022-05-05] MEDS: Mirapex 0.5 MG Tablet PO SCH ×3 (11:46→21:32)
[2022-05-05] MEDS: Ditropan 5 MG PO SCH ×2 (11:47→21:32)
[2022-05-05] MEDS: Cymbalta 30 MG Capsule PO SCH (11:47)
[2022-05-05] MEDS: ELAVIL 10 MG PO SCH (11:47)
[2022-05-05] MEDS: SYNTHROID 25 MCG PO SCH (11:47)
[2022-05-05] MEDS: ZYLOPRIM 100 MG PO SCH (11:47)
--- NOTE | 2022-05-05 11:52 | OP ---
SURGERY DATE/TIME: 05/05/2022 1027 PREOPERATIVE DIAGNOSIS: GI bleed, positive Hemoccult. POSTOPERATIVE DIAGNOSIS: Normal gastric bypass. PROCEDURE: Esophagogastrojejunoscopy. SURGEON: Vikram Shipley M.D. ANESTHESIA: IV anesthesia. SPECIMEN: Antrum and esophagus. CONDITION: Patient condition stable. COMPLICATIONS: None. SPECIMENS: None. HISTORY: The patient is a 76-year-old female who presented to the hospital with altered mental status, infection, does have a urinary tract infection and cellulitis lower extremities which is being treated. The mental status has improved but she does have slight anemia and Hemoccult was positive. She is not having eri bleeding. She was apparently diagnosed with Crohn's within the last year by GI in [place] but we do not have those records. I discussed with the patient and she does want to proceed with EGD. FINDINGS: Normal gastric bypass. DESCRIPTION OF PROCEDURE: The patient was brought to the endoscopy suite. She was actually placed supine as she does not lay on her side well. She is routinely prepared. Time out performed. IV anesthesia induced by anesthesia. Gastroscope is inserted through the mouth and advanced to the jejunum. There is a healthy, intact Bertin-en-Y gastric bypass, candy cane is normal. The jejunal limb is normal. There is no ulcer at all. The pouch is satisfactory. The hiatus is satisfactory. Esophagus is normal. This is a normal exam postoperative. The pouch suctioned out and the scope withdrawn. The patient tolerated the procedure well. RECOMMENDATIONS: I recommend to follow her hemoglobin and follow clinically and advance diet as tolerated. If she is having eri bleeding or hemoglobin drop, we could consider inpatient colonoscopy but with her being followed by GI in [place] for Crohn's would really just recommend outpatient follow up with them upon discharge.
[2022-05-05] MEDS: Lactated Ringers 1,000 ML IV SCH (16:21)
[2022-05-05] MEDS: IMODIUM 2 MG PO PRN (16:47)
[2022-05-05] MEDS: VANCOMYCIN 1.5 GRAM/300 ML BAG 1.5 GM/300 ML PIGGYBACK IV SCH ×2 (16:52→18:31)
[2022-05-05] MEDS: ZOCOR 20MG PO SCH (21:32)
[2022-05-05] MEDS: MELATONIN PO SCH (21:34)
[2022-05-05] MEDS: LOPROX TOP SCH (21:36)
[2022-05-05] MEDS: KENALOG 0.1% LOTION TP SCH (21:37)
[2022-05-06] MEDS: PIPERACILLIN/TAZOBACTAM 3.375 GM in Sodium Chloride 100ML MINI-BAG PLUS 100 ML IV SCH ×3 (05:42→18:54)
--- NOTE | 2022-05-06 08:34 | PCM.NOTE ---
Date and Time: 05/06/22 0832 Subjective Assessment: no eri bleeding overnight, patient is alert and oriented this am (although today's date is on her whiteboard and she looked at it) she denies pain, currently on room air. had egd with surgery yesterday, h/h stable Objective Exam General Appearance: obese Neurologic Exam: alert, oriented x 3, cooperative Wound Assessment: Skin/Wound Assessment Wound/Incision Assessment Start: 05/03/22 12:29 Text: Status: Active Freq: Q6H Protocol: Document 05/06/22 02:00 KX (Rec: 05/06/22 02:13 KX [id number]) Wound/Incision Assessment Left Anterior Medial Calf Wound Assessment Shift Assessment Wound Type Stasis Ulcer Wound Stage Non Pressure Wound Dressing Status Dry & Intact Drainage Amount None Comment DRESSING CLEAN, DRY, AND INTACT ~ REMAINS TRUE Right Lower Anterior Other Wound Assessment Shift Assessment Wound Type Stasis Ulcer Wound Stage Non Pressure Wound Dressing Status Dry & Intact Primary Dressing Absorbant Pad Secondary Dressing Gauze Roll/Wrap Comment DRESSING CLEAN, DRY, AND INTACT ~ REMAINS TRUE Wound Photo Photo Taken Yes Date: 05/03/22 Time: 15:54 Comment: picture taken Respiratory Exam: normal breath sounds, lungs clear, No respiratory distress Cardiovascular Exam: regular rate/rhythm, normal heart sounds Gastrointestinal/Abdomen Exam: soft, normal bowel sounds, No tenderness, No distention Extremity Exam: normal inspection, normal range of motion OBJECTIVE DATA Vital Signs: Vital Signs - 24 hr Temp Pulse Resp BP Pulse Ox 05/06/22 08:10 95 05/06/22 04:00 100.6 F 66 17 110/58 92 L 05/06/22 00:00 100.8 F 70 19 117/59 93 L 05/05/22 20:00 100.6 F 69 18 130/65 92 L 05/05/22 17:58 91 L 05/05/22 16:00 99.9 F 64 17 130/54 92 L 05/05/22 15:15 91 L 05/05/22 11:40 99.7 F 61 16 118/59 95 05/05/22 08:40 96 Pain Assessment - Last Documented Pain Intensity 0 Pain Scale Used 0-10 Pain Scale Intake and Output: Intake & Output 10/04/22 10/05/22 10/06/22 10/07/22 11:59 11:59 11:59 11:59 Intake Total 4772 3395 3328 Output Total 1200 2150 550 Balance 3572 1245 2778 Weight 126 kg 129.5 kg 129.5 kg Lab Results: Lab Results-Last 24 Hours 05/05/22 05/05/22 05/05/22 Range/Units 11:08 16:42 20:54 POC Glucometer 105 124 H 225 H (74 to 106) mg/dL Multi-Disciplinary Progress Notes: Multi-Disciplinary Progress Notes 05/05/22 14:36 Physical Therapy Note by Chris Blanc#[id number])Bernadine LE WOUNDS WERE REDRESSED THIS PM BY PHYSICAL THERAPY. NO DRAINAGE PRESENT ON OUTSIDE OF DRESSINGS. R LE HAD COPIOUS SEROUS DRAINAGE ON ABD PADS AND SLIGHT ODOR. R LE WAS CLEANSED WITH HIBICLENS AND STERILE WATER. WOUND AND CALF AREA WERE COVERED WITH BARRIER CREAM. IODOFORM APPLIED OVER OPEN AREA. ABD PAD PLACED OVER WOUND AREA. R LE WAS DRESSED WITH KERLIX AND COBAN. L LE WITH MINIMAL BLOODY DRAINAGE ON ABD PAD. L LE WAS CLEANSED WITH HIBICLENS AND STERILE WATER. LOOSE FLAKY SKIN WAS REMOVED. BARRIER OINTMENT WAS APPLIED TO L LE CALF AREA AND WOUND. IODOFORM APPLIED TO OPEN AREA. KERLIX APPLIED AND COBAN ANCHORED DRESSING. Initialized on 05/05/22 14:36 - END OF NOTE 05/05/22 08:41 Case Management Note by Christelle Olmos REVIEWED CHART- PATIENT CURRENTLY ON 2L/NC- DOES NOT WEAR AT HOME. PLACED ORDER FOR RT TO WEAN OFF OXYGEN. OTHERWISE- DO NOT ANTICIPATE ANY NEW/DIFFERENT NEEDS AT TIME OF DC. Initialized on 05/05/22 08:41 - END OF NOTE Assessment/Plan (1) Delirium Current Visit: Yes Status: Acute Code(s): R41.0 - DISORIENTATION, UNSPECIFIED (2) GIB (gastrointestinal bleeding) Current Visit: Yes Status: Acute Code(s): K92.2 - GASTROINTESTINAL HEMORRHAGE, UNSPECIFIED (3) UTI (urinary tract infection) Current Visit: Yes Status: Acute Qualifiers: Urinary tract infection type: acute cystitis Hematuria presence: without hematuria Qualified Code(s): N30.00 - Acute cystitis without hematuria Code(s): N39.0 - URINARY TRACT INFECTION, SITE NOT SPECIFIED (4) Type 2 diabetes mellitus Current Visit: No Status: Chronic Qualifiers: Diabetes mellitus computer terminal operator insulin use: unspecified residential insulin use status Diabetes mellitus complication status: with hypoglycemia Diabetes mellitus complication detail: with coma Qualified Code(s): E11.641 - Type 2 diabetes mellitus with hypoglycemia with coma (5) Wound of lower extremity Current Visit: Yes Status: Chronic Qualifiers: Encounter type: initial encounter Laterality: unspecified laterality Qualified Code(s): S81.809A - Unspecified open wound, unspecified lower leg, initial encounter Assessment & Plan: on zosyn, urine culture pending. recommend removing freedman and ambulating patient as she states she hasn't been up since admission and normally lives independently with her daughter. Code(s): S81.809A - UNSPECIFIED OPEN WOUND, UNSPECIFIED LOWER LEG, INIT ENCNTR
[2022-05-06] MEDS: ZENPEP DR 5,000 UNIT CAPSULE PO SCH ×3 (08:42→17:54)
[2022-05-06] MEDS ORDERED: ROCEPHIN 1 Gm-D5w 50 ml Bag** 1 G/50 ML IVPB IV SCH (10:00)
[2022-05-06] MEDS: Ditropan 5 MG PO SCH ×2 (10:49→21:23)
[2022-05-06] MEDS: SYNTHROID 25 MCG PO SCH (10:49)
[2022-05-06] MEDS: Mirapex 0.5 MG Tablet PO SCH ×3 (10:50→21:22)
[2022-05-06] MEDS: Lantus Insulin SQ SCH (10:50)
[2022-05-06] MEDS: ELAVIL 10 MG PO SCH (10:50)
[2022-05-06] MEDS: ZYLOPRIM 100 MG PO SCH (10:50)
[2022-05-06] MEDS: Acidophilus TABLET PO SCH ×3 (10:50→21:23)
[2022-05-06] MEDS: Cymbalta 30 MG Capsule PO SCH (10:50)
[2022-05-06] MEDS: Lopressor 25MG Tab PO SCH ×2 (10:51→21:23)
[2022-05-06] MEDS: NYSTOP POWDER 15 GM TP SCH ×3 (10:54→21:26)
[2022-05-06] MEDS: Lactated Ringers 1,000 ML IV SCH (11:38)
[2022-05-06] MEDS: Santyl OINTMENT TOP SCH (13:51)
[2022-05-06] MEDS ORDERED: TROUGH DRUG LEVELS IJ ONE (16:30)
[2022-05-06] MEDS: ZOCOR 20MG PO SCH (21:23)
[2022-05-06] MEDS: MELATONIN PO SCH (21:23)
[2022-05-06] MEDS: LOPROX TOP SCH (21:24)
[2022-05-06] MEDS: KENALOG 0.1% LOTION TP SCH (21:25)
[2022-05-07] MEDS: PIPERACILLIN/TAZOBACTAM 3.375 GM in Sodium Chloride 100ML MINI-BAG PLUS 100 ML IV SCH ×5 (00:02→23:38)
[2022-05-07 06:18] LABS: ANION GAP 8.1 MEQ/L (5-15); BLOOD UREA NITROGEN 13 mg/dL (7-17); CHLORIDE 111 mmol/L (98-107); Calcium 7.9 mg/dL (8.4-10.2); Carbon Dioxide 24 mmol/L (22-30); Creatinine 1 0.92 mg/dL (0.52-1.04); EST GLOMERULAR FILTRATION RATE > 60.0 ML/MIN; Glucose 148 mg/dL (74-106); SODIUM 140 mmol/L (137-145)
[2022-05-07 06:23] LABS: Absolute Neutrophil Ct (ANC) 2.07 x10^3/uL (1.4-6.9); Basophil (Absolute #) 0.02 x10^3/uL (0-0.4); Eosinophil % 4.3 % (0.00-5.0); Eosinophil (Absolute #) 0.19 x10^3/uL (0-0.5); Hemoglobin 9.5 g/dL (12.0-16.0); Lymphocyte (Absolute #) 1.76 x10^3/uL (1.0-4.6); Lymphocytes % 39.9 % (24.0-44.0); Mean Cell Volume 83.8 fL (78-100); Mean Corpuscular Hemoglobin 25.7 pg (26-32); Mean Corpuscular Hgb Concent. 30.6 g/dL (32-36); Mean Platelet Volume 9.9 fL (7.5-11.0); Monocyte (Absolute #) 0.37 x10^3/uL (0.0-1.3); Monocytes % 8.4 % (0.0-12.0); Neutrophil % 46.9 % (36.0-66.0); Platelet Count 227 x10^3/uL (150-450); Red Cell Distribution Width 18.5 % (11.5-14.0); White Blood Count 4.4 x10^3/uL (4.0-10.5)
[2022-05-07] MEDS: ZENPEP DR 5,000 UNIT CAPSULE PO SCH ×3 (07:57→16:41)
[2022-05-07] MEDS: Lactated Ringers 1,000 ML IV SCH (08:09)
[2022-05-07] MEDS: ELAVIL 10 MG PO SCH (10:07)
[2022-05-07] MEDS: Cymbalta 30 MG Capsule PO SCH (10:08)
[2022-05-07] MEDS: ZYLOPRIM 100 MG PO SCH (10:08)
[2022-05-07] MEDS: Acidophilus TABLET PO SCH ×3 (10:08→20:59)
[2022-05-07] MEDS: SYNTHROID 25 MCG PO SCH (10:08)
[2022-05-07] MEDS: Lopressor 25MG Tab PO SCH ×2 (10:08→20:59)
[2022-05-07] MEDS: Ditropan 5 MG PO SCH ×2 (10:08→20:58)
[2022-05-07] MEDS: Lantus Insulin SQ SCH (10:08)
[2022-05-07] MEDS: Mirapex 0.5 MG Tablet PO SCH ×3 (10:08→20:57)
[2022-05-07] MEDS: Santyl OINTMENT TOP SCH ×2 (10:11→10:30)
[2022-05-07] MEDS: NYSTOP POWDER 15 GM TP SCH ×3 (10:11→21:00)
--- NOTE | 2022-05-07 16:36 | PCM.NOTE ---
Date and Time: 05/07/22 1633 Subjective Assessment: Pt feeling much better. Kristian po well. Up in chair eating. - Review of Systems Constitutional: No Fever Objective Exam General Appearance: no apparent distress, alert, obese Neurologic Exam: cooperative, normal mood/affect Skin Exam: warm, dry Wound Assessment: Skin/Wound Assessment Wound/Incision Assessment Start: 05/03/22 12:29 Text: Status: Active Freq: Q6H Protocol: Document 05/07/22 08:00 MW (Rec: 05/07/22 11:18 MW [id number]) Wound/Incision Assessment Left Anterior Medial Calf Wound Assessment Shift Assessment Wound Type Stasis Ulcer Wound Stage Non Pressure Wound Dressing Status Dry & Intact Drainage Amount None Comment Drsg CDI Right Lower Anterior Other Wound Assessment Shift Assessment Wound Type Stasis Ulcer Wound Stage Non Pressure Wound Dressing Status Dry & Intact Primary Dressing Absorbant Pad Secondary Dressing Gauze Roll/Wrap Comment Drsg CDI Wound Photo Photo Taken Yes Date: 05/03/22 Time: 15:54 Comment: Picture on chart Eye Exam: eyes nml inspection Ears, Nose, Throat Exam: moist mucous membranes Neck Exam: normal inspection Respiratory Exam: normal breath sounds, lungs clear, No crackles/rales, No rhonchi, No wheezing Cardiovascular Exam: regular rate/rhythm, normal heart sounds, No murmur Gastrointestinal/Abdomen Exam: soft, normal bowel sounds Extremity Exam: other (LLE unwrapped, wound ant LLE approx 2 cm covered with gauze. yellow scale present on leg.) OBJECTIVE DATA Vital Signs: Vital Signs - 24 hr Temp Pulse Resp BP Pulse Ox 05/07/22 12:00 97.5 F 61 14 138/62 95 05/07/22 08:30 96 05/07/22 08:00 98.8 F 63 18 150/72 94 L 05/07/22 04:00 97.7 F 60 18 158/67 96 05/07/22 00:00 98.3 F 59 L 20 133/59 95 05/06/22 20:00 97.7 F 63 20 133/60 96 05/06/22 19:11 96 Pain Assessment - Last Documented Pain Intensity 0 Pain Scale Used 0-10 Pain Scale Intake and Output: Intake & Output 05/05/22 05/06/22 05/07/22 05/08/22 11:59 11:59 11:59 11:59 Intake Total 3122 6018 5157 Output Total 1526 175 600 Balance 1245 7918 1355 Weight 129.5 kg 134.3 kg 134.3 kg Lab Results: Lab Results-Last 24 Hours 05/06/22 05/07/22 05/07/22 Range/Units 21:03 05:35 05:35 WBC 4.4 (4.0-10.5) x10^3/uL RBC 3.70 L (4.1-5.4) x10^6/uL Hgb 9.5 L (12.0-16.0) g/dL Hct 31.0 L (35-47) % MCV 83.8 (78-100) fL MCH 25.7 L (26-32) pg MCHC 30.6 L (32-36) g/dL RDW 18.5 H (11.5-14.0) % Plt Count 227 (150-450) x10^3/uL MPV 9.9 (7.5-11.0) fL Gran % 46.9 (36.0-66.0) % Immature Gran % (Auto) 0.0 (0.00-0.4) % Nucleat RBC Rel Count 0.0 (0.00-0.1) % Eos # (Auto) 0.19 (0-0.5) x10^3/uL Immature Gran # (Auto) 0.00 (0.00-0.03) x10^3u/L Absolute Lymphs (auto) 1.76 (1.0-4.6) x10^3/uL Absolute Monos (auto) 0.37 (0.0-1.3) x10^3/uL Absolute Nucleated RBC 0.00 (0.00-0.01) x10^3u/L Lymphocytes % 39.9 (24.0-44.0) % Monocytes % 8.4 (0.0-12.0) % Eosinophils % 4.3 (0.00-5.0) % Basophils % 0.5 (0.0-0.4) % Absolute Granulocytes 2.07 (1.4-6.9) x10^3/uL Basophils # 0.02 (0-0.4) x10^3/uL Sodium 140 (137-145) mmol/L Potassium 4.0 (3.5-5.1) mmol/L Chloride 111 H (98-107) mmol/L Carbon Dioxide 24 (22-30) mmol/L Anion Gap 8.1 (5-15) MEQ/L BUN 13 (7-17) mg/dL Creatinine 0.92 (0.52-1.04) mg/dL Estimated GFR > 60.0 ML/MIN Glucose 148 H (74-106) mg/dL POC Glucometer 124 H (74 to 106) mg/dL Calcium 7.9 L (8.4-10.2) mg/dL 05/07/22 05/07/22 05/07/22 Range/Units 08:00 12:26 16:03 WBC (4.0-10.5) x10^3/uL RBC (4.1-5.4) x10^6/uL Hgb (12.0-16.0) g/dL Hct (35-47) % MCV (78-100) fL MCH (26-32) pg MCHC (32-36) g/dL RDW (11.5-14.0) % Plt Count (150-450) x10^3/uL MPV (7.5-11.0) fL Gran % (36.0-66.0) % Immature Gran % (Auto) (0.00-0.4) % Nucleat RBC Rel Count (0.00-0.1) % Eos # (Auto) (0-0.5) x10^3/uL Immature Gran # (Auto) (0.00-0.03) x10^3u/L Absolute Lymphs (auto) (1.0-4.6) x10^3/uL Absolute Monos (auto) (0.0-1.3) x10^3/uL Absolute Nucleated RBC (0.00-0.01) x10^3u/L Lymphocytes % (24.0-44.0) % Monocytes % (0.0-12.0) % Eosinophils % (0.00-5.0) % Basophils % (0.0-0.4) % Absolute Granulocytes (1.4-6.9) x10^3/uL Basophils # (0-0.4) x10^3/uL Sodium (137-145) mmol/L Potassium (3.5-5.1) mmol/L Chloride (98-107) mmol/L Carbon Dioxide (22-30) mmol/L Anion Gap (5-15) MEQ/L BUN (7-17) mg/dL Creatinine (0.52-1.04) mg/dL Estimated GFR ML/MIN Glucose (74-106) mg/dL POC Glucometer 119 H 146 H 155 H (74 to 106) mg/dL Calcium (8.4-10.2) mg/dL Assessment/Plan (1) Wound of lower extremity Current Visit: Yes Status: Chronic Qualifiers: Encounter type: initial encounter Laterality: unspecified laterality Qualified Code(s): S81.809A - Unspecified open wound, unspecified lower leg, initial encounter Assessment & Plan: Pseudomonas; covering pseudomonas and staph with zosyn. Pt is much improved and now afebrile for > 24 hours. Code(s): S81.809A - UNSPECIFIED OPEN WOUND, UNSPECIFIED LOWER LEG, INIT ENCNTR (2) UTI (urinary tract infection) Current Visit: Yes Status: Acute Qualifiers: Urinary tract infection type: acute cystitis Hematuria presence: without hematuria Qualified Code(s): N30.00 - Acute cystitis without hematuria Code(s): N39.0 - URINARY TRACT INFECTION, SITE NOT SPECIFIED (3) AMS (altered mental status) Current Visit: Yes Status: Resolved Qualifiers: Altered mental status type: delirium Qualified Code(s): R41.0 - Disorienta tion, unspecified Code(s): R41.82 - ALTERED MENTAL STATUS, UNSPECIFIED (4) Hypoxemia Current Visit: Yes Status: Resolved Code(s): R09.02 - HYPOXEMIA (5) Dehydration Current Visit: Yes Status: Resolved Code(s): E86.0 - DEHYDRATION (6) Fever Current Visit: Yes Status: Resolved Qualifiers: Fever type: unspecified Qualified Code(s): R50.9 - Fever, unspecified Code(s): R50.9 - FEVER, UNSPECIFIED (7) Anemia Current Visit: No Status: Acute Qualifiers: Anemia type: unspecified type Qualified Code(s): D64.9 - Anemia, unspecified Code(s): D64.9 - ANEMIA, UNSPECIFIED (8) CAD (coronary artery disease) Current Visit: Yes Status: Chronic Qualifiers: Coronary Disease-Associated Artery/Lesion type: [place] artery [place] vs. transplanted heart: [place] heart Associated angina: without angina Qualified Code(s): I25.10 - Atherosclerotic heart disease of [place] coronary artery without angina pectoris Code(s): I25.10 - ATHSCL HEART DISEASE OF [place] CORONARY ARTERY W/O ANG PCTRS (9) Diabetes mellitus type II, controlled Current Visit: Yes Status: Chronic Qualifiers: Diabetes mellitus exterminator insulin use: with exterminator use Diabetes mellitus complication status: with skin complications Diabetes mellitus complication detail: with other skin ulcer Qualified Code(s): E11.622 - Type 2 diabetes mellitus with other skin ulcer; Z79.4 - group home (current) use of insulin Code(s): E11.9 - TYPE 2 DIABETES MELLITUS WITHOUT COMPLICATIONS (10) Pacemaker Current Visit: Yes Status: Chronic Code(s): Z95.0 - PRESENCE OF CARDIAC PACEMAKER (11) Paroxysmal atrial fibrillation Current Visit: Yes Status: Chronic Code(s): I48.0 - PAROXYSMAL ATRIAL FIBRILLATION
[2022-05-07] MEDS: KENALOG 0.1% LOTION TP SCH (20:58)
[2022-05-07] MEDS: ZOCOR 20MG PO SCH (20:58)
[2022-05-07] MEDS: MELATONIN PO SCH (20:58)
[2022-05-07] MEDS: LOPROX TOP SCH (20:59)
[2022-05-08] MEDS: PIPERACILLIN/TAZOBACTAM 3.375 GM in Sodium Chloride 100ML MINI-BAG PLUS 100 ML IV SCH ×3 (05:06→17:43)
[2022-05-08 05:23] LABS: Hematocrit 32.4 % (35-47); Hemoglobin 9.8 g/dL (12.0-16.0); Mean Cell Volume 85.3 fL (78-100); Mean Corpuscular Hemoglobin 25.8 pg (26-32); Mean Corpuscular Hgb Concent. 30.2 g/dL (32-36); Mean Platelet Volume 9.8 fL (7.5-11.0); Platelet Count 224 x10^3/uL (150-450); Red Cell Distribution Width 18.6 % (11.5-14.0); White Blood Count 4.5 x10^3/uL (4.0-10.5)
[2022-05-08] MEDS: Lactated Ringers 1,000 ML IV SCH (05:24)
[2022-05-08] MEDS: IMODIUM 2 MG PO PRN (05:24)
[2022-05-08 06:27] LABS: ANION GAP 5.2 MEQ/L (5-15); BLOOD UREA NITROGEN 10 mg/dL (7-17); CHLORIDE 112 mmol/L (98-107); Calcium 7.8 mg/dL (8.4-10.2); Carbon Dioxide 26 mmol/L (22-30); EST GLOMERULAR FILTRATION RATE > 60.0 ML/MIN; Glucose 109 mg/dL (74-106); Potassium 3.7 mmol/L (3.5-5.1); SODIUM 139 mmol/L (137-145)
[2022-05-08] MEDS: ZENPEP DR 5,000 UNIT CAPSULE PO SCH ×3 (09:07→17:44)
[2022-05-08] MEDS: ELAVIL 10 MG PO SCH (10:50)
[2022-05-08] MEDS: Mirapex 0.5 MG Tablet PO SCH ×3 (10:50→21:23)
[2022-05-08] MEDS: Lopressor 25MG Tab PO SCH ×2 (10:51→21:22)
[2022-05-08] MEDS: SYNTHROID 25 MCG PO SCH (10:51)
[2022-05-08] MEDS: Acidophilus TABLET PO SCH ×3 (10:51→21:23)
[2022-05-08] MEDS: ZYLOPRIM 100 MG PO SCH (10:51)
[2022-05-08] MEDS: Cymbalta 30 MG Capsule PO SCH (10:51)
[2022-05-08] MEDS: Lantus Insulin SQ SCH (10:51)
[2022-05-08] MEDS: Ditropan 5 MG PO SCH ×2 (10:51→21:23)
[2022-05-08] MEDS: NYSTOP POWDER 15 GM TP SCH ×3 (10:52→21:22)
[2022-05-08] MEDS: Santyl OINTMENT TOP SCH (10:56)
--- NOTE | 2022-05-08 13:35 | PCM.NOTE ---
Date and Time: 05/08/22 1329 Subjective Assessment: Pt is feeling better, asking to go home. She is having worsening diarrhea that is "explosive." Asking to go home. - Review of Systems Constitutional: No Fever Abdominal/Gastrointestinal: Diarrhea Objective Exam General Appearance: no apparent distress, obese Neurologic Exam: cooperative, normal mood/affect Skin Exam: normal color, warm Wound Assessment: Skin/Wound Assessment Wound/Incision Assessment Start: 05/03/22 12:29 Text: Status: Active Freq: Q6H Protocol: Document 05/08/22 08:00 EK (Rec: 05/08/22 09:52 EK [id number]) Wound/Incision Assessment Left Anterior Medial Calf Wound Assessment Shift Assessment Wound Type Stasis Ulcer Wound Stage Non Pressure Wound Drainage Amount None Comment OPEN TO AIR AT THIS TIME Right Lower Anterior Other Wound Assessment Shift Assessment Wound Type Stasis Ulcer Wound Stage Non Pressure Wound Drainage Amount Moderate Drainage Description Yellow Primary Dressing Absorbant Pad Comment ABD PAD WITH DRAINAGE OVER ULCERATION - REST OF LEG OPEN TO AIR AT THIS TIME Wound Photo Photo Taken No Eye Exam: eyes nml inspection Ears, Nose, Throat Exam: moist mucous membranes Neck Exam: normal inspection Respiratory Exam: normal breath sounds, lungs clear, No crackles/rales, No rhonchi, No wheezing Cardiovascular Exam: regular rate/rhythm, normal heart sounds, No murmur Gastrointestinal/Abdomen Exam: soft, normal bowel sounds, No tenderness Extremity Exam: other (bilat LE with barrier cream. R has anterior mid gutierrez approx 6x4cm wound. L had anterior mid gutierrez approx 2x2cm wound) OBJECTIVE DATA Vital Signs: Vital Signs - 24 hr Temp Pulse Resp BP Pulse Ox 05/08/22 12:00 97.8 F 63 18 157/67 99 05/08/22 08:00 97.7 F 66 13 166/74 98 05/08/22 04:00 97.5 F 83 20 142/64 98 05/07/22 23:53 98.1 F 60 18 113/56 98 05/07/22 20:00 98.0 F 73 20 158/76 99 05/07/22 16:00 97.5 F 62 16 140/63 97 Pain Assessment - Last Documented Pain Intensity 0 Pain Scale Used 0-10 Pain Scale Intake and Output: Intake & Output 05/06/22 05/07/22 05/08/22 05/09/22 11:59 11:59 11:59 11:59 Intake Total 9854 3188 3524 Output Total 508 600 500 Balance 4250 1356 1861 Weight 134.3 kg 134.3 kg Lab Results: Lab Results-Last 24 Hours 05/07/22 05/07/22 05/08/22 Range/Units 16:03 21:03 04:40 WBC 4.5 (4.0-10.5) x10^3/uL RBC 3.80 L (4.1-5.4) x10^6/uL Hgb 9.8 L (12.0-16.0) g/dL Hct 32.4 L (35-47) % MCV 85.3 (78-100) fL MCH 25.8 L (26-32) pg MCHC 30.2 L (32-36) g/dL RDW 18.6 H (11.5-14.0) % Plt Count 224 (150-450) x10^3/uL MPV 9.8 (7.5-11.0) fL Sodium (137-145) mmol/L Potassium (3.5-5.1) mmol/L Chloride (98-107) mmol/L Carbon Dioxide (22-30) mmol/L Anion Gap (5-15) MEQ/L BUN (7-17) mg/dL Creatinine (0.52-1.04) mg/dL Estimated GFR ML/MIN Glucose (74-106) mg/dL POC Glucometer 155 H 147 H (74 to 106) mg/dL Calcium (8.4-10.2) mg/dL 05/08/22 05/08/22 05/08/22 Range/Units 04:40 07:44 12:01 WBC (4.0-10.5) x10^3/uL RBC (4.1-5.4) x10^6/uL Hgb (12.0-16.0) g/dL Hct (35-47) % MCV (78-100) fL MCH (26-32) pg MCHC (32-36) g/dL RDW (11.5-14.0) % Plt Count (150-450) x10^3/uL MPV (7.5-11.0) fL Sodium 139 (137-145) mmol/L Potassium 3.7 (3.5-5.1) mmol/L Chloride 112 H (98-107) mmol/L Carbon Dioxide 26 (22-30) mmol/L Anion Gap 5.2 (5-15) MEQ/L BUN 10 (7-17) mg/dL Creatinine 0.80 (0.52-1.04) mg/dL Estimated GFR > 60.0 ML/MIN Glucose 109 H (74-106) mg/dL POC Glucometer 69 L 127 H (74 to 106) mg/dL Calcium 7.8 L (8.4-10.2) mg/dL Assessment/Plan (1) Wound of lower extremity Current Visit: Yes Status: Chronic Qualifiers: Encounter type: initial encounter Laterality: unspecified laterality Qualified Code(s): S81.809A - Unspecified open wound, unspecified lower leg, initial encounter Assessment & Plan: With cultures positive for pseudomonas. The first 2 d of admission she had fever to >102F, and it didn't resolve until adding zosyn. Resistant to levaquin. I suspect she'll need to be on zosyn x 7d at least, but will consult Dr. Tran in the morning. Code(s): S81.809A - UNSPECIFIED OPEN WOUND, UNSPECIFIED LOWER LEG, INIT ENCNTR (2) UTI (urinary tract infection) Current Visit: Yes Status: Acute Qualifiers: Urinary tract infection type: acute cystitis Hematuria presence: without hematuria Qualified Code(s): N30.00 - Acute cystitis without hematuria Assessment & Plan: additional testing needed for susceptibility. Code(s): N39.0 - URINARY TRACT INFECTION, SITE NOT SPECIFIED (3) AMS (altered mental status) Current Visit: Yes Status: Resolved Qualifiers: Altered mental status type: delirium Qualified Code(s): R41.0 - Disorientation, unspecified Code(s): R41.82 - ALTERED MENTAL STATUS, UNSPECIFIED (4) Anemia Current Visit: No Status: Acute Qualifiers: Anemia type: unspecified type Qualified Code(s): D64.9 - Anemia, unspecified Assessment & Plan: Had transfusion 2 units PRBC this admission with subsequent EGD/Colonoscopy. Hgb stable around 9.5 since. Code(s): D64.9 - ANEMIA, UNSPECIFIED (5) CAD (coronary artery disease) Current Visit: Yes Status: Chronic Qualifiers: Coronary Disease-Associated Artery/Lesion type: [place] artery [place] vs. transplanted heart: [place] heart Associated angina: without angina Qualified Code(s): I25.10 - Atherosclerotic heart disease of [place] coronary artery without angina pectoris Code(s): I25.10 - ATHSCL HEART DISEASE OF [place] CORONARY ARTERY W/O ANG PCTRS (6) Pacemaker Current Visit: Yes Status: Chronic Code(s): Z95.0 - PRESENCE OF CARDIAC PACEMAKER (7) Paroxysmal atrial fibrillation Current Visit: Yes Status: Chronic Assessment & Plan: Sees Dr. More - was on xarelto at admission but per him ok to hold it as long as she's in sinus rhythm. Code(s): I48.0 - PAROXYSMAL ATRIAL FIBRILLATION (8) Diabetes mellitus type II, controlled Current Visit: Yes Status: Chronic Qualifiers: Diabetes mellitus care home insulin use: with bed bug exterminator use Diabetes mellitus complication status: with skin complications Diabetes mellitus complication detail: with other skin ulcer Qualified Code(s): E11.622 - Type 2 diabetes mellitus with other skin ulcer; Z79.4 - snf (current) use of insulin Code(s): E11.9 - TYPE 2 DIABETES MELLITUS WITHOUT COMPLICATIONS
[2022-05-08] MEDS: LOPROX TOP SCH (21:20)
[2022-05-08] MEDS: KENALOG 0.1% LOTION TP SCH (21:21)
[2022-05-08] MEDS: MELATONIN PO SCH (21:22)
[2022-05-08] MEDS: ZOCOR 20MG PO SCH (21:22)
[2022-05-09] MEDS: PIPERACILLIN/TAZOBACTAM 3.375 GM in Sodium Chloride 100ML MINI-BAG PLUS 100 ML IV SCH ×4 (00:20→17:33)
[2022-05-09] MEDS: Lactated Ringers 1,000 ML IV SCH (01:56)
[2022-05-09 05:01] LABS: Hematocrit 32.8 % (35-47); Hemoglobin 9.6 g/dL (12.0-16.0); Mean Cell Volume 85.9 fL (78-100); Mean Corpuscular Hemoglobin 25.1 pg (26-32); Mean Corpuscular Hgb Concent. 29.3 g/dL (32-36); Mean Platelet Volume 9.4 fL (7.5-11.0); Platelet Count 222 x10^3/uL (150-450); Red Blood Count 3.82 x10^6/uL (4.1-5.4); Red Cell Distribution Width 18.8 % (11.5-14.0); White Blood Count 4.7 x10^3/uL (4.0-10.5)
[2022-05-09 05:20] LABS: BLOOD UREA NITROGEN 11 mg/dL (7-17); CHLORIDE 110 mmol/L (98-107); Calcium 7.9 mg/dL (8.4-10.2); Carbon Dioxide 25 mmol/L (22-30); Creatinine 1 0.78 mg/dL (0.52-1.04); EST GLOMERULAR FILTRATION RATE > 60.0 ML/MIN; Glucose 114 mg/dL (74-106); Potassium 3.6 mmol/L (3.5-5.1); SODIUM 139 mmol/L (137-145)
[2022-05-09] MEDS: ZYLOPRIM 100 MG PO SCH (10:07)
[2022-05-09] MEDS: Lopressor 25MG Tab PO SCH ×2 (10:07→21:18)
[2022-05-09] MEDS: Ditropan 5 MG PO SCH ×2 (10:07→21:18)
[2022-05-09] MEDS: ELAVIL 10 MG PO SCH (10:07)
[2022-05-09] MEDS: ZENPEP DR 5,000 UNIT CAPSULE PO SCH ×3 (10:07→17:33)
[2022-05-09] MEDS: Mirapex 0.5 MG Tablet PO SCH ×3 (10:07→21:18)
[2022-05-09] MEDS: SYNTHROID 25 MCG PO SCH (10:07)
[2022-05-09] MEDS: Lantus Insulin SQ SCH (10:08)
[2022-05-09] MEDS: Cymbalta 30 MG Capsule PO SCH (10:08)
[2022-05-09] MEDS: Acidophilus TABLET PO SCH ×3 (10:08→21:18)
[2022-05-09] MEDS: NYSTOP POWDER 15 GM TP SCH ×3 (10:08→21:17)
[2022-05-09] MEDS: Santyl OINTMENT TOP SCH (10:09)
[2022-05-09 11:34] LABS: 027 TOX PROD PRESUMPTIVE NEGATIVE (NEGATIVE); TOXIGENIC C. DIFF ORG NEGATIVE (NEGATIVE)
[2022-05-09] MEDS: IMODIUM 2 MG PO PRN ×2 (11:44→19:01)
--- NOTE | 2022-05-09 13:01 | PCM.NOTE ---
Date and Time: 05/09/22 1259 Subjective Assessment: Patient had explosive diarrhea yesterday that tested neg for Cdif. Is on antibiotics for bilateral LE wounds. Podiatry is following. Cult grew Pseudomonas ,no sensitivity yet. Objective Exam Wound Assessment: Skin/Wound Assessment Wound/Incision Assessment Start: 05/03/22 12:29 Text: Status: Active Freq: Q6H Protocol: Document 05/09/22 12:00 AW (Rec: 05/09/22 12:10 AW [id number]) Wound/Incision Assessment Left Anterior Medial Calf Wound Assessment Shift Assessment Wound Type Stasis Ulcer Wound Stage Non Pressure Wound Dressing Status Changed Comment Dressing applied by day shift, CDI Right Lower Anterior Other Wound Assessment Shift Assessment Wound Type Stasis Ulcer Wound Stage Non Pressure Wound Dressing Status Changed Drainage Amount Moderate Drainage Description Yellow Primary Dressing Absorbant Pad Comment Dressing applied by day shift. CDI Wound Photo Photo Taken No OBJECTIVE DATA Vital Signs: Vital Signs - 24 hr Temp Pulse Resp BP Pulse Ox 05/09/22 11:55 98.0 F 60 16 127/57 95 05/09/22 07:35 98.1 F 63 16 169/74 93 L 05/09/22 04:00 98.0 F 75 20 166/80 98 05/09/22 00:00 97.3 F 75 20 155/69 99 05/08/22 20:00 97.9 F 61 20 121/56 97 05/08/22 16:00 97.7 F 60 12 160/70 100 Pain Assessment - Last Documented Pain Intensity 0 Pain Scale Used 0-10 Pain Scale Intake and Output: Intake & Output 05/07/22 05/08/22 05/09/22 05/10/22 11:59 11:59 11:59 11:59 Intake Total 1955 2361 1876 Output Total 600 500 500 Balance 1355 1861 1376 Weight 134.3 kg 134 kg Lab Results: Lab Results-Last 24 Hours 05/08/22 05/08/22 05/08/22 Range/Units 16:14 21:16 Unknown WBC (4.0-10.5) x10^3/uL RBC (4.1-5.4) x10^6/uL Hgb (12.0-16.0) g/dL Hct (35-47) % MCV (78-100) fL MCH (26-32) pg MCHC (32-36) g/dL RDW (11.5-14.0) % Plt Count (150-450) x10^3/uL MPV (7.5-11.0) fL Sodium (137-145) mmol/L Potassium (3.5-5.1) mmol/L Chloride (98-107) mmol/L Carbon Dioxide (22-30) mmol/L Anion Gap (5-15) MEQ/L BUN (7-17) mg/dL Creatinine (0.52-1.04) mg/dL Estimated GFR ML/MIN Glucose (74-106) mg/dL POC Glucometer 154 H 231 H (74 to 106) mg/dL Calcium (8.4-10.2) mg/dL Stool Occult Blood (NEGATIVE) C. difficile Screen NEGATIVE (NEGATIVE) C.difficile [id number] PRESUMPTIVE NEGATIVE (NEGATIVE) 05/09/22 05/09/22 05/09/22 Range/Units 04:30 04:30 07:42 WBC 4.7 (4.0-10.5) x10^3/uL RBC 3.82 L (4.1-5.4) x10^6/uL Hgb 9.6 L (12.0-16.0) g/dL Hct 32.8 L (35-47) % MCV 85.9 (78-100) fL MCH 25.1 L (26-32) pg MCHC 29.3 L (32-36) g/dL RDW 18.8 H (11.5-14.0) % Plt Count 222 (150-450) x10^3/uL MPV 9.4 (7.5-11.0) fL Sodium 139 (137-145) mmol/L Potassium 3.6 (3.5-5.1) mmol/L Chloride 110 H (98-107) mmol/L Carbon Dioxide 25 (22-30) mmol/L Anion Gap 8.0 (5-15) MEQ/L BUN 11 (7-17) mg/dL Creatinine 0.78 (0.52-1.04) mg/dL Estimated GFR > 60.0 ML/MIN Glucose 114 H (74-106) mg/dL POC Glucometer 124 H (74 to 106) mg/dL Calcium 7.9 L (8.4-10.2) mg/dL Stool Occult Blood (NEGATIVE) C. difficile Screen (NEGATIVE) C.difficile 027-NAP1-B1 (NEGATIVE) 05/09/22 05/09/22 Range/Units 11:40 11:43 WBC (4.0-10.5) x10^3/uL RBC (4.1-5.4) x10^6/uL Hgb (12.0-16.0) g/dL Hct (35-47) % MCV (78-100) fL MCH (26-32) pg MCHC (32-36) g/dL RDW (11.5-14.0) % Plt Count (150-450) x10^3/uL MPV (7.5-11.0) fL Sodium (137-145) mmol/L Potassium (3.5-5.1) mmol/L Chloride (98-107) mmol/L Carbon Dioxide (22-30) mmol/L Anion Gap (5-15) MEQ/L BUN (7-17) mg/dL Creatinine (0.52-1.04) mg/dL Estimated GFR ML/MIN Glucose (74-106) mg/dL POC Glucometer 146 H (74 to 106) mg/dL Calcium (8.4-10.2) mg/dL Stool Occult Blood NEGATIVE (NEGATIVE) C. difficile Screen (NEGATIVE) C.difficile 027-NAP1-B1 (NEGATIVE) Radiology Exams: Radiology Procedures Category Date Time Status VENOUS BILATERAL EXTREMITY [US] Stat Exams 05/09/22 12:00 Taken Multi-Disciplinary Progress Notes: Multi-Disciplinary Progress Notes 05/09/22 11:36 Case Management Note by Christelle Olmos S/W PATIENT- NO CHANGE IN DC PLANS AT THIS TIME. PATIENT TO RETURN HOME TO [facility] AT TIME OF DC. PATIENT ALREADY HAS [facility]. WILL WAIT AND SEE WHAT KRIS RECOMMENDS WELL AND WILL MAKE ANY CHANGES RECOMMENDED Initialized on 05/09/22 11:36 - END OF NOTE 05/09/22 11:24 Physical Therapy Note by Jake(#[id number],Barber PT tx for unna boot change attempted 2x. First attempt pt was being bathed. 2nd attempt, nursing stated that Dr. Tran has an order evaluate the wounds. PT tx held to not waste resources. Nsg and Kris's office are to inform PT if pt was not able to be seen for any reason to ensure dressing is changed. Initialized on 05/09/22 11:24 - END OF NOTE
--- NOTE | 2022-05-09 13:09 | XRAY ---
Indication: Cellulitis. Two-dimensional sonogram and color Doppler imaging of the major venous vessels of left and right leg performed. Comparison: None No thrombus seen in the examined deep venous vessels of the left and right leg including greater saphenous vein. Veins demonstrate normal compressibility. Venous waveforms are normal with and without augmentation. Impression: Left and right legs negative for DVT.
[2022-05-09] MEDS: ZOCOR 20MG PO SCH (21:18)
[2022-05-09] MEDS: MELATONIN PO SCH (21:19)
[2022-05-09] MEDS: KENALOG 0.1% LOTION TP SCH (21:20)
[2022-05-09] MEDS: LOPROX TOP SCH (21:21)
[2022-05-10] MEDS: PIPERACILLIN/TAZOBACTAM 3.375 GM in Sodium Chloride 100ML MINI-BAG PLUS 100 ML IV SCH ×3 (00:33→12:04)
[2022-05-10 04:54] LABS: Hematocrit 32.3 % (35-47); Hemoglobin 9.8 g/dL (12.0-16.0); Mean Cell Volume 84.3 fL (78-100); Mean Corpuscular Hemoglobin 25.6 pg (26-32); Mean Corpuscular Hgb Concent. 30.3 g/dL (32-36); Mean Platelet Volume 9.6 fL (7.5-11.0); Platelet Count 218 x10^3/uL (150-450); Red Blood Count 3.83 x10^6/uL (4.1-5.4); Red Cell Distribution Width 19.3 % (11.5-14.0); White Blood Count 4.9 x10^3/uL (4.0-10.5)
[2022-05-10 05:07] LABS: ANION GAP 7.4 MEQ/L (5-15); BLOOD UREA NITROGEN 10 mg/dL (7-17); CHLORIDE 109 mmol/L (98-107); Calcium 7.9 mg/dL (8.4-10.2); Carbon Dioxide 26 mmol/L (22-30); Creatinine 1 0.78 mg/dL (0.52-1.04); EST GLOMERULAR FILTRATION RATE > 60.0 ML/MIN; Glucose 94 mg/dL (74-106); Potassium 3.8 mmol/L (3.5-5.1); SODIUM 139 mmol/L (137-145)
[2022-05-10] MEDS: ZENPEP DR 5,000 UNIT CAPSULE PO SCH ×2 (07:59→11:01)
[2022-05-10] MEDS: ELAVIL 10 MG PO SCH (10:46)
[2022-05-10] MEDS: ZYLOPRIM 100 MG PO SCH (10:46)
[2022-05-10] MEDS: Cymbalta 30 MG Capsule PO SCH (10:46)
[2022-05-10] MEDS: SYNTHROID 25 MCG PO SCH (10:46)
[2022-05-10] MEDS: Lopressor 25MG Tab PO SCH (10:46)
[2022-05-10] MEDS: Acidophilus TABLET PO SCH (10:46)
[2022-05-10] MEDS: Mirapex 0.5 MG Tablet PO SCH (10:46)
[2022-05-10] MEDS: Ditropan 5 MG PO SCH (10:46)
[2022-05-10] MEDS: Lantus Insulin SQ SCH (10:47)
[2022-05-10] MEDS: Santyl OINTMENT TOP SCH (10:52)
[2022-05-10] MEDS: NYSTOP POWDER 15 GM TP SCH (10:52)
[2022-05-10 11:56] VITALS: BP 144/66; PULSE 61; O2SAT 98
--- NOTE | 2022-05-10 13:03 | PCM.DS ---
Discharge Summary Date of Admission: 05/04/22 09:00 Admitting Physician: GILSON FELIX Consults: Consults on Case 05/04/22 14:24 Consult Surgery ROUTINE 05/09/22 07:00 Consult Podiatry ROUTINE Primary Care Provider: ENRIQUETA CONROY Allergies Allergies No Known Drug Allergies Allergy (Unverified 04/18/22 00:46) Hospital Summary - Hospital Course Hospital Course: is a 76 year old female pt with no local MD with PMHx migraine, TIA, HTN, hyperlipidemia, DMII, paroxysmal afib, degen disc dz, Crohn's dz (dx this year?), peripheral neuropathy, and pacemaker (sees Dr. More). She was admitted through ER with UTI, AMS, TIA, dehydration, hypoxia. Also has leg wounds that have been treated by PT - found to have MRSA. Pt's hgb was 8.4 on admission, decreased to 7.4 and she was given 2 units PRBC. EGD and colonoscopy were ordered, but only EGD was done d/t poor colon prep (had colonoscopy done fairly recently) - gastritis found. Pt had fever her first 2 hospital days. She was being treated appropriately for UTI. However, her leg wound cultures came back positive for pseudomonas, r esistant to levaquin. Once her abx were changed to zosyn, she became afebrile and improved markedly. I spoke with Dr. Yang today, her infectious disease specialist, and he would like her to be treated for 14d on antibiotics for the pseudomonal leg infections. Pt has had diarrhea here; neg for c. diff. She is on immodium prn. Pt's mental status improved after her fever resolved. - Vitals & Intake/Output Vital Signs: Vital Signs Temperature 97.8 F 05/10/22 11:55 Pulse Rate 61 05/10/22 11:55 Respiratory Rate 16 05/10/22 11:55 Blood Pressure 144/66 05/10/22 11:55 O2 Sat by Pulse Oximetry 98 05/10/22 11:55 Intake & Output: Intake & Output 05/08/22 05/09/22 05/10/22 05/11/22 11:59 11:59 11:59 11:59 Intake Total 2361 1876 1062 Output Total 500 500 Balance 1861 1376 1062 Weight 134 kg 134.3 kg - Lab Result Diagrams: 05/10/22 04:53 05/10/22 04:53 Lab Results-Last 24 Hrs: Lab Results-Last 24 Hours 05/09/22 05/09/22 05/10/22 Range/Units 16:32 21:09 04:53 WBC 4.9 (4.0-10.5) x10^3/uL RBC 3.83 L (4.1-5.4) x10^6/uL Hgb 9.8 L (12.0-16.0) g/dL Hct 32.3 L (35-47) % MCV 84.3 (78-100) fL MCH 25.6 L (26-32) pg MCHC 30.3 L (32-36) g/dL RDW 19.3 H (11.5-14.0) % Plt Count 218 (150-450) x10^3/uL MPV 9.6 (7.5-11.0) fL Sodium (137-145) mmol/L Potassium (3.5-5.1) mmol/L Chloride (98-107) mmol/L Carbon Dioxide (22-30) mmol/L Anion Gap (5-15) MEQ/L BUN (7-17) mg/dL Creatinine (0.52-1.04) mg/dL Estimated GFR ML/MIN Glucose (74-106) mg/dL POC Glucometer 138 H 148 H (74 to 106) mg/dL Calcium (8.4-10.2) mg/dL 05/10/22 05/10/22 05/10/22 Range/Units 04:53 07:25 11:52 WBC (4.0-10.5) x10^3/uL RBC (4.1-5.4) x10^6/uL Hgb (12.0-16.0) g/dL Hct (35-47) % MCV (78-100) fL MCH (26-32) pg MCHC (32-36) g/dL RDW (11.5-14.0) % Plt Count (150-450) x10^3/uL MPV (7.5-11.0) fL Sodium 139 (137-145) mmol/L Potassium 3.8 (3.5-5.1) mmol/L Chloride 109 H (98-107) mmol/L Carbon Dioxide 26 (22-30) mmol/L Anion Gap 7.4 (5-15) MEQ/L BUN 10 (7-17) mg/dL Creatinine 0.78 (0.52-1.04) mg/dL Estimated GFR > 60.0 ML/MIN Glucose 94 (74-106) mg/dL POC Glucometer 77 117 H (74 to 106) mg/dL Calcium 7.9 L (8.4-10.2) mg/dL Micro Results-Entire Visit: Microbiology 05/03/22 09:47 Blood Culture Gram Stain - Final Blood Not Reportable Blood Culture - Final NO GROWTH 05/03/22 09:24 Blood Culture Gram Stain - Final Blood Not Reportable Blood Culture - Final NO GROWTH 05/03/22 10:04 - Final Urine, Catheterized Not Reportable - Final Not Reportable - Final Not Reportable - Final Not Reportable - Final Not Reportable - Final Not Reportable 05/03/22 10:04 Urine Culture - Preliminary Catherized ADDITIONAL TESTING IS REQUIRED TO OBTAIN ID AND SENSITIVITY. SPECIMEN HAS BEEN SENT TO REFERENCE LAB, WITH FINAL RESULT EXPECTED WITHIN 96 HOURS. 05/03/22 16:06 Wound Culture - Final Chin Pseudomonas Aeruginosa Accuchecks Date 05/10/22 Date 05/10/22 Date 05/09/22 Date 05/09/22 Time 11:54 Time 07:28 Time 16:45 - Radiology Exams Ordered Rad Exams-Entire Visit: Radiology Procedures Category Date Time Status VENOUS BILATERAL EXTREMITY [US] Stat Exams 05/09/22 12:00 Completed - Procedures and Test Procedures and Tests throughout Hospitalization: Therapy Orders & Screens 05/03/22 11:34 Oxygen NASAL CANNULA 2 lpm Comment: Diagnosis: CHF 05/03/22 12:29 OT Screen per Nursing Assess ONCE Comment: Protocol Order Physician Instructions: Greater than 3 points order OT Admission Screening Reason For Exam: Triggered on Admission Diagnosis: UTI, AMS, dehydration Open Wound/Cellutlitis/Pressure Ulcers: Yes Acute Fx/ORIF/Change in wt bearing status: Yes Severe MUSCULOSKELETAL pain: No ADL Dysfunction: No Acute CVA w/Hemiparesis/Hemiplegia: No Decreased Functional Mobility/Strength: Yes Sprain/Strain: No Acute Post-op Mobility Dysfunction: No Total Points: 11 PT Screen per Nursing Assess ONCE Comment: Protocol Order Physician Instructions: Greater than 3 points order PT Admission Screenin Reason For Exam: Triggered on Admission Diagnosis: UTI, AMS, dehydration Open Wound/Cellutlitis/Pressure Ulcers: Yes Acute Fx/ORIF/Change in wt bearing status: Yes Severe MUSCULOSKELETAL pain: No ADL Dysfunction: No Acute CVA w/Hemiparesis/Hemiplegia: No Decreased Functional Mobility/Strength: Yes Sprain/Strain: No Acute Post-op Mobility Dysfunction: No Total Points: 11 05/03/22 15:59 PT Eval & Treat ( Order) ONCE Reason for Eval:: bilateral LE cellulitis/ open wounds Diagnosis: UTI, AMS, dehydration 05/05/22 08:40 RT Miscellaneous Order ROUTINE Comment: DOES NOT WEAR AT HOME Physician Instructions: WEAN OFF O2 Reason For Exam: Diagnosis: UTI, AMS, dehydration 05/06/22 08:36 PT Eval & Treat (MD Order) ONCE Reason for Eval:: needs up out of bed, ambulate Diagnosis: UTI, AMS, dehydration Discharge Exam General Appearance: no apparent distress, alert, obese Neurologic Exam: cooperative, normal mood/affect Eye Exam: eyes nml inspection Ears, Nose, Throat Exam: moist mucous membranes Neck Exam: normal inspection Respiratory Exam: normal breath sounds, lungs clear, No crackles/rales, No rhonchi, No wheezing Cardiovascular Exam: regular rate/rhythm, normal heart sounds, No murmur Gastrointestinal/Abdomen Exam: soft, normal bowel sounds, No tenderness, No distention, No mass, No guarding, No rebound Extremity Exam: other (wrapped, bilat) Skin Exam: warm, dry Wound Assessment: Skin/Wound Assessment Wound/Incision Assessment Start: 05/03/22 12:29 Text: Status: Active Freq: Q6H Protocol: Document 05/10/22 05:27 RB (Rec: 05/10/22 05:29 RB [id number]) Wound/Incision Assessment Left Anterior Medial Calf Wound Assessment Shift Assessment Wound Type Stasis Ulcer Wound Stage Non Pressure Wound Dressing Status Dry & Intact Drainage Amount None Drainage Odor None/Absent Comment Dressing applied by PT, CDI Right Lower Anterior Other Wound Assessment Shift Assessment Wound Type Stasis Ulcer Wound Stage Non Pressure Wound Dressing Status Changed Drainage Amount Moderate Drainage Description Yellow Primary Dressing Absorbant Pad Comment Dressing applied by PT. CDI Wound Photo Photo Taken No Final Diagnosis/Problem List - Final Discharge Diagnosis/Problem (1) Wound of lower extremity Current Visit: Yes Status: Chronic Assessment & Plan: on zosyn day #6; will finish 14d total. Code(s): S81.809A - UNSPECIFIED OPEN WOUND, UNSPECIFIED LOWER LEG, INIT ENCNTR (2) UTI (urinary tract infection) Current Visit: Yes Status: Resolved Code(s): N39.0 - URINARY TRACT INFECTION, SITE NOT SPECIFIED (3) AMS (altered mental status) Current Visit: Yes Status: Resolved Code(s): R41.82 - ALTERED MENTAL STATUS, UNSPECIFIED (4) Anemia Current Visit: No Status: Acute Assessment & Plan: stable, post transfusion 2 units PRBC 2nd day of admission. Code(s): D64.9 - ANEMIA, UNSPECIFIED (5) CAD (coronary artery disease) Current Visit: Yes Status: Chronic Code(s): I25.10 - ATHSCL HEART DISEASE OF [place] CORONARY ARTERY W/O ANG PCTRS (6) Pacemaker Current Visit: Yes Status: Chronic Code(s): Z95.0 - PRESENCE OF CARDIAC PACEMAKER (7) Paroxysmal atrial fibrillation Current Visit: Yes Status: Chronic Assessment & Plan: per teri Marquez to stay off thinner as long as not in afib. Code(s): I48.0 - PAROXYSMAL ATRIAL FIBRILLATION (8) Diabetes mellitus type II, controlled Current Visit: Yes Status: Chronic Code(s): E11.9 - TYPE 2 DIABETES MELLITUS WITHOUT COMPLICATIONS - Discharge Disposition: Swing Bed @ [facility] Condition: Good Prescriptions: No Action Calcium Carb, Citrate/Vit D3 [Calcium + D3 ER Tablet] 1 tab PO DAILY Balsalazide Disodium 750 mg PO QHS Azelastine HCl 1 drop OP DAILY Aspirin EC 81 mg [Ecotrin 81 mg] 81 mg PO DAILY Allopurinol 100 mg [Zyloprim 100 mg] 100 mg PO DAILY Nitroglycerin 0.4 mg SL UD Metoprolol Tartrate 25 mg PO BID Insulin Lispro [Admelog Solostar] 6 unit SQ AC Furosemide 40 mg [Lasix 40 MG] 40 mg PO LUNCH Furosemide 80 mg PO DAILY Divalproex Sodium [Depakote] 500 mg PO EVENING MEAL Divalproex Sodium [Depakote] 250 mg PO DAILY Atorvastatin Calcium 80 mg PO QHS Duloxetine HCl [Cymbalta] 60 mg PO DAILY Duloxetine HCl 30 mg PO DAILY Vitamin B Complex 1 tab PO DAILY Rivaroxaban [Xarelto] 15 mg PO EVENING MEAL Pramipexole Di-HCl [Pramipexole Dihydrochloride] 1 mg PO TID Lipase/Protease/Amylase [Elvis Portillo 24,000 Unit Capsule] 24,000 units PO AC Oxybutynin Chloride 5 mg PO BID Levothyroxine Sodium [Levothyroxine] 25 mcg PO DAILY Collagenase Oint [Santyl OINTMENT] 1 applic TOP DAILY Ciclopirox/Skin Cleanser No.28 [Ciclodan 0.77% Cream Kit] 1 applic TOP QHS Amitriptyline HCl 10 mg [Elavil 10 mg] 10 mg PO DAILY Triamcinolone 0.1% Lotion [Kenalog 0.1% Lotion] 1 applic TOP QHS Melatonin 10 mg PO QHS Insulin Detemir [Levemir] 30 unit SQ QAM Nystatin Powder 15 gm [Nystop Powder 15 gm] 1 gm TP TID Follow up with: JONI HEWITT [NON-STAFF PHY W/O PRIVILEGES] -
== END 2022-05-10 13:30 | disposition swing bed (61) | DRG 605 ==
LOC: ED 08:42 → MED SURG 11:24 → OBSVTOIN 05-04 09:00
PROVIDERS: ADMIT Family Medicine; ATTEND Family Medicine
PROC: 0DJ08ZZ Inspection of Upper Intestinal Tract, Via Natural or Artificial Opening Endoscopic (ICD-10-PCS; principal; 2022-05-05)
DX: S81.809A Unspecified open wound, unspecified lower leg, initial encounter (principal); N39.0 Urinary tract infection, site not specified; K50.90 Crohn's disease, unspecified, without complications; K92.2 Gastrointestinal hemorrhage, unspecified; R41.82 Altered mental status, unspecified; D64.9 Anemia, unspecified; I25.10 Atherosclerotic heart disease of native coronary artery without angina pectoris; Z95.0 Presence of cardiac pacemaker; I48.0 Paroxysmal atrial fibrillation; E11.9 Type 2 diabetes mellitus without complications; E86.0 Dehydration; R09.02 Hypoxemia; I83.012 Varicose veins of right lower extremity with ulcer of calf; I83.022 Varicose veins of left lower extremity with ulcer of calf; R19.5 Other fecal abnormalities; R50.9 Fever, unspecified; E11.622 Type 2 diabetes mellitus with other skin ulcer; Z79.899 Other long term (current) drug therapy; Z20.828 Contact with and (suspected) exposure to other viral communicable diseases
CPT/HCPCS: 00731; 0241U; 29581; 36000; 36415; 36430; 43235; 51702; 70450; 71045; 80048; 80053; 81015; 82947; 83036; 83605; 83880; 84443; 84484; 85014; 85018; 85025; 85027; 86850; 86900; 86901; 86922; 87040; 87070; 87077; 87086; 87186; 87493; 93005; 93041; 93268; 93970; 94760; 94762; 96360; 96361; 96365; 97110; 97161; 97530; 99100; 99140; 99285; G0328; G0378; P9016; 82274; J1940; J1956; J2704; A9270-GY; J3370; J3590-GY

== ENCOUNTER 2022-05-10 11:30 | Inpatient (IN) | payer MEDICARE ==
[2022-05-10] MEDS ORDERED: Aplisol ID ONE (14:05)
[2022-05-10] MEDS ORDERED: MEDICATION INTERVENTION MC SCH (14:05)
[2022-05-10] MEDS ORDERED: Nitrostat 0.4 MG Tablet SL PRN (14:05)
[2022-05-10] MEDS: NYSTOP POWDER 15 GM TP SCH ×2 (15:15→21:24)
[2022-05-10] MEDS: Acidophilus TABLET PO SCH ×2 (15:15→21:16)
[2022-05-10] MEDS: Mirapex 0.5 MG Tablet PO SCH ×2 (15:15→21:16)
[2022-05-10] MEDS: ZENPEP DR 5,000 UNIT CAPSULE PO SCH (16:30)
[2022-05-10] MEDS: PIPERACILLIN/TAZOBACTAM 3.375 GM in Sodium Chloride 100ML MINI-BAG PLUS 100 ML IV SCH (18:32)
[2022-05-10] MEDS: Lactated Ringers 1,000 ML IV SCH (21:12)
[2022-05-10] MEDS: Ditropan 5 MG PO SCH (21:16)
[2022-05-10] MEDS: ZOCOR 20MG PO SCH (21:16)
[2022-05-10] MEDS: Lopressor 25MG Tab PO SCH (21:16)
[2022-05-10] MEDS: MELATONIN PO SCH (21:18)
[2022-05-10] MEDS: LOPROX TOP SCH (21:22)
[2022-05-10] MEDS: KENALOG 0.1% LOTION TP SCH (21:24)
[2022-05-11] MEDS: PIPERACILLIN/TAZOBACTAM 3.375 GM in Sodium Chloride 100ML MINI-BAG PLUS 100 ML IV SCH ×4 (05:39→12:38)
[2022-05-11] MEDS: ZENPEP DR 5,000 UNIT CAPSULE PO SCH ×3 (07:25→15:17)
--- NOTE | 2022-05-11 08:00 | PCM.CONS ---
Podiatry HPI - Consult Reason for Consult: venous insufficency ulcers bilateral lower extremity. Consulting Provider: KRIS LOOMIS DPM - HPI History of Present Illness: is a a very pleasant 76 year old who is seen for Venous insufficency ulcers to bilateral legs. Medications & Allergies Home Medications: Home Medication List Allopurinol 100 mg [Zyloprim 100 mg] 100 mg PO DAILY 04/17/22 [History Confirmed 05/10/22] Amitriptyline HCl 10 mg [Elavil 10 mg] 10 mg PO DAILY 04/17/22 [History Confirmed 05/10/22] Aspirin EC 81 mg [Ecotrin 81 mg] 81 mg PO DAILY 04/17/22 [History Confirmed 05/10/22] Atorvastatin Calcium 80 mg PO QHS 04/17/22 [History Confirmed 05/10/22] Azelastine HCl 1 drop OP DAILY 04/17/22 [History Confirmed 05/10/22] Balsalazide Disodium 750 mg PO QHS 04/17/22 [History Confirmed 05/10/22] Calcium Carb, Citrate/Vit D3 [Calcium + D3 ER Tablet] 1 tab PO DAILY 04/17/22 [History Confirmed 05/10/22] Ciclopirox/Skin Cleanser No.28 [Ciclodan 0.77% Cream Kit] 1 applic TOP QHS 04/17/22 [History Confirmed 05/10/22] Collagenase Oint [Santyl OINTMENT] 1 applic TOP DAILY 04/17/22 [History Confirmed 05/10/22] Divalproex Sodium [Depakote] 250 mg PO DAILY 04/17/22 [History Confirmed 05/10/22] Divalproex Sodium [Depakote] 500 mg PO EVENING MEAL 04/17/22 [History Confirmed 05/10/22] Duloxetine HCl 30 mg PO DAILY 04/17/22 [History Confirmed 05/10/22] Duloxetine HCl [Cymbalta] 60 mg PO DAILY 04/17/22 [History Confirmed 05/10/22] Furosemide 80 mg PO DAILY 04/17/22 [History Confirmed 05/10/22] Furosemide 40 mg [Lasix 40 MG] 40 mg PO LUNCH 04/17/22 [History Confirmed 05/10/22] Insulin Lispro [Admelog Solostar] 6 unit SQ AC 04/17/22 [History Confirmed 05/10/22] Levothyroxine Sodium [Levothyroxine] 25 mcg PO DAILY 04/17/22 [History Confirmed 05/10/22] Lipase/Protease/Amylase [Elvis Portillo 24,000 Unit Capsule] 24,000 units PO AC 04/17/22 [History Confirmed 05/10/22] Metoprolol Tartrate 25 mg PO BID 04/17/22 [History Confirmed 05/10/22] Nitroglycerin 0.4 mg SL UD 04/17/22 [History Confirmed 05/10/22] Oxybutynin Chloride 5 mg PO BID 04/17/22 [History Confirmed 05/10/22] Pramipexole Di-HCl [Pramipexole Dihydrochloride] 1 mg PO TID 04/17/22 [History Confirmed 05/10/22] Rivaroxaban [Xarelto] 15 mg PO EVENING MEAL 04/17/22 [History Confirmed 05/10/22] Vitamin B Complex 1 tab PO DAILY 04/17/22 [History Confirmed 05/10/22] Melatonin 10 mg PO QHS 04/18/22 [History Confirmed 05/10/22] Triamcinolone 0.1% Lotion [Kenalog 0.1% Lotion] 1 applic TOP QHS 04/18/22 [History Confirmed 05/10/22] Insulin Detemir [Levemir] 30 unit SQ QAM 05/03/22 [History Confirmed 05/10/22] Nystatin Powder 15 gm [Nystop Powder 15 gm] 1 gm TP TID 05/03/22 [History Confirmed 05/10/22] Allergies/Adverse Reactions: Allergies Allergy/AdvReac Type Severity Reaction Status Date / Time No Known Drug Allergies Allergy Unverified 05/10/22 14:30 - Past Medical History Past Medical History: Yes Neurological History: Migraines, TIA, Other ENT History: No Pertinent History Cardiac History: High Cholesterol, Hypertension, Other Respiratory History: No Pertinent History Endocrine Medical History: Diabetes Type II Musculoskelatal History: No Pertinent History, Degenerative Disk Disease GI Medical History: Crohns Disease, Irritable Bowel History: No Pertinent History Pyscho-Social History: No Pertinent History Reproductive Disorders: No Pertinent History Comment: NEUROPATHY - Past Surgical History Past Surgical History: Yes Neuro Surgical History: No Pertinent History Cardiac History: Pacemaker Respiratory Surgery: No Pertinent History GI Surgical History: Appendectomy, Cholecystectomy Genitourinary Surgical Hx: No Pertinent History Musculskeletal Surgical Hx: Joint Replacement, Orthopedic Surgery Female Surgical History: No Pertinent History Other Surgical History: BARIATRIC SURG,CARPAL TUNNEL - Social History Smoking Status: Unknown if ever smoked Exposure to second hand smoke: Yes Alcohol: None Drug Use: none Physical Exam - General General Appearance: no apparent distress - Neuro Neurologic: Epicritic and protopathic - Vascular Peripheral Pulses: Posterior tibialis: 2+, Dorsalis-Pedis: 2+ Capillary Refill Time: < 3 seconds Hair Growth: Symmetrical and Bilateral Varicosities: Positive Edema: Pitting Edema Degree: 4+ Skin: Supple, not atrophic Skin Temperature: Warm to touch - Narrative Narrative Physical Exam: Podiatry Physical Exam Results - Labs Lab/Micro Results: Lab Results-Last 24 Hours 05/11/22 Range/Units 06:52 POC Glucometer TNP Accuchecks Date 05/11/22 Date 05/10/22 Time 16:56 Assessment/Plan (1) Ulcer of extremity due to chronic venous insufficiency Current Visit: Yes Status: Acute Assessment & Plan: Initial patient examination and evaluation. Venous Dopplers obtained negative negative for deep vein thrombosis. Patient would be good candidate for compression therapy. At this time recommendation for compression to the bilateral lower extremity. Patient on ABX with concerns for diarrhea C. difficile panel negative at this time Will follow closely with dressing changes and wound care Monday Code(s): L98.499 - NON-PRESSURE CHRONIC ULCER OF SKIN OF SITES W UNSP SEVERITY; I87.2 - VENOUS INSUFFICIENCY (CHRONIC) (PERIPHERAL) (2) Localized edema due to fluid overload Current Visit: Yes Status: Acute Code(s): E87.70 - FLUID OVERLOAD, UNSPECIFIED (3) Type 2 diabetes mellitus Current Visit: No Status: Chronic Qualifiers: (4) Bilateral lower leg cellulitis Current Visit: No Status: Acute Code(s): L03.116 - CELLULITIS OF LEFT LOWER LIMB; L03.115 - CELLULITIS OF RIGHT LOWER LIMB
[2022-05-11] MEDS: Lopressor 25MG Tab PO SCH ×2 (08:59→21:49)
[2022-05-11] MEDS: Acidophilus TABLET PO SCH ×3 (08:59→21:49)
[2022-05-11] MEDS: Cymbalta 30 MG Capsule PO SCH (08:59)
[2022-05-11] MEDS: SYNTHROID 25 MCG PO SCH (08:59)
[2022-05-11] MEDS: ELAVIL 10 MG PO SCH (08:59)
[2022-05-11] MEDS: Ditropan 5 MG PO SCH ×2 (09:00→21:49)
[2022-05-11] MEDS: ZYLOPRIM 100 MG PO SCH (09:00)
[2022-05-11] MEDS: Mirapex 0.5 MG Tablet PO SCH ×3 (09:00→21:49)
[2022-05-11] MEDS: Lantus Insulin SQ SCH (09:01)
[2022-05-11] MEDS: NYSTOP POWDER 15 GM TP SCH ×3 (09:01→21:49)
[2022-05-11] MEDS: Santyl OINTMENT TOP SCH (09:02)
[2022-05-11] MEDS: Lactated Ringers 1,000 ML IV SCH (11:23)
[2022-05-11] MEDS ORDERED: PHARMACY DOSING REQUEST MC ONE (16:05)
[2022-05-11] MEDS: Merrem 1 GM in Sodium Chloride 100ML MINI-BAG PLUS 100 ML IV SCH (17:53)
[2022-05-11] MEDS: MELATONIN PO SCH (21:49)
[2022-05-11] MEDS: ZOCOR 20MG PO SCH (21:49)
[2022-05-11] MEDS: KENALOG 0.1% LOTION TP SCH (21:50)
[2022-05-11] MEDS: LOPROX TOP SCH (21:51)
[2022-05-12] MEDS: Merrem 1 GM in Sodium Chloride 100ML MINI-BAG PLUS 100 ML IV SCH ×2 (05:44→17:47)
[2022-05-12] MEDS: ZENPEP DR 5,000 UNIT CAPSULE PO SCH ×3 (07:35→16:29)
[2022-05-12] MEDS: Lantus Insulin SQ SCH (09:40)
[2022-05-12] MEDS: Cymbalta 30 MG Capsule PO SCH (09:40)
[2022-05-12] MEDS: Lopressor 25MG Tab PO SCH ×2 (09:41→21:37)
[2022-05-12] MEDS: NYSTOP POWDER 15 GM TP SCH ×3 (09:41→21:38)
[2022-05-12] MEDS: Acidophilus TABLET PO SCH ×3 (09:41→21:37)
[2022-05-12] MEDS: ZYLOPRIM 100 MG PO SCH (09:41)
[2022-05-12] MEDS: Mirapex 0.5 MG Tablet PO SCH ×3 (09:41→21:36)
[2022-05-12] MEDS: Ditropan 5 MG PO SCH ×2 (09:41→21:37)
[2022-05-12] MEDS: ELAVIL 10 MG PO SCH (09:41)
[2022-05-12] MEDS: Santyl OINTMENT TOP SCH (09:42)
[2022-05-12] MEDS: SYNTHROID 25 MCG PO SCH (09:42)
--- NOTE | 2022-05-12 17:01 | PCM.NOTE ---
Date and Time: 05/12/22 1701 Subjective Assessment: Dressing soiled. Physical Exam - General General Appearance: no apparent distress - Neuro Neurologic: Epicritic and protopathic - Vascular Peripheral Pulses: Posterior tibialis: 2+, Dorsalis-Pedis: 2+ Capillary Refill Time: < 3 seconds Hair Growth: Symmetrical and Bilateral Varicosities: Positive Edema: Pitting Edema Degree: 3+ Skin: Supple, not atrophic - Muscular Muscle Strength: 5/5 on all 4 quadrants - Narrative Narrative Physical Exam: debridement of wounds Right anterior wound 5.8 x 4.2 Right medial blister 10.9 x 8.6 Left anterior 1.2 x 1.4 Left lateral blister 2.1 x 2.0 OBJECTIVE DATA Vital Signs: Vital Signs - 24 hr Temp Pulse Resp BP Pulse Ox 05/12/22 07:52 97.3 F 65 16 174/74 96 Intake and Output: Intake & Output 05/10/22 05/11/22 05/12/22 05/13/22 11:59 11:59 11:59 11:59 Intake Total 720 120 240 Balance 720 120 240 Weight 134.3 kg Lab Results: Lab Results-Last 24 Hours 05/12/22 05/12/22 Range/Units 07:28 16:56 POC Glucometer 99 140 H (74 to 106) mg/dL Multi-Disciplinary Progress Notes: Multi-Disciplinary Progress Notes 05/12/22 15:53 Occupational Therapy Note by Josh(Darren#[id number])Malinda Occupational Therapy Treatment Session 05/12/2022, [id number] Patient seated at EOB with BOAT OAR MAKER present assisting patient with BM clean-up. Patient completed sit EOB>stand transfer with mod cueing for UB placement and MIN A x2 followed by functional transfer to recliner with CGA using RW. OTR provided min verbal cueing for safety prior to patient performing sit in recliner for safety awareness and positioning. Patient then participated in UB grooming/hygiene tasks to wash hair and brush hair with setup and rest breaks as needed in sitting. Patient participated in BUE AROM and strengthening ther ex's including arm raises, chest presses, bidirectional rows, side arm raises, and bicep curls 2x10 reps. Patient reported she felt "good" at end of treatment session. She was seated in recliner with BLE elevated and heels floating on pillow with call light, room phone, cell phone, and bedside table within reach. Will continue to see patient through duration of stay to facilitate improved functional strength, endurance, and independence and safety with I/ADLs. Initialized on 05/12/22 15:53 - END OF NOTE 05/11/22 17:47 OT Plan of Care Note by Jaycob(L#[id number])Rhonda OT OT Eval and Treat MD Order Start: 05/11/22 15:49 Freq: ROUTINE Status: Complete Protocol: Created 05/11/22 15:50 ERENDIRA (Rec: 05/11/22 15:50 ERENDIRA MRS- [id number]) Document 05/11/22 17:20 AL (Rec: 05/11/22 17:32 AL [id number]) OT Assessment Pertinent Past Medical History MORAIMA LIVES WITH HER DAUGHTER AND [id number] WHO ARE ABLE TO PROVIDE 24 HOUR CARE. SHE HAS [facility] AND THEY WILL PLAN TO CONT CARE ONCE SHE IS D/C TO HOME. SHE WAS IN LTC FACILITY FOR APPROX A YEAR AFTER HAVING FALLS AT HOME. WAS HOME FOR APPROX. 6 WEEKS BEFORE HAVING THIS ACUTE CARE ADMISSION. WAS ADMITTED TO ACUTE CARE ON 05/04/22 AND SWING BED ON 05/10. Equipment at Home Prior to Admission Special Bed,Walker Comment HAS HOSPITABL BED AT HOME ( HOWEVER IT HAS NO SIDE RAILS) HER FAMILY ARE GOING TO TRY TO PUT RAILS ON SIDE OF BED BEFORE SHE D/C TO HOME. ALSO HAS TTB IN TUB/SHOWER COMBO Date 05/11/22 Feeding WFL Grooming WFL Comment NEEDS SET-UP Bathing Impaired Comment MOD ASSIST WITH UE AND MAX ASSIST WITH LE SPONGE BATHING CURRENTLY. Dressing Impaired Comment MOD-MAX ASSIST Toileting Impaired Comment M0D ASSIST WITH CLOTHING MANAGEMENT AND TOILET HYGEINE IADLS (If indicated) Homemaking,etc Impaired Comment SHE REPORTS HER FAMILY WILL PROVIDE ASSIST FOR ALL IADLS ONCE SHE IS D/C TO HOME. Bed Mobility Impaired Comment MOD ASSIST Toilet Transfers Impaired Comment MIN-MOD ASSIST Functional Transfers Impaired Comment MIN-MOD ASSIST Functional Endurance POOR+ FOR 15 MIN ADL SESSION Cognition SHE DEMO GOOD ALERTNESS AND A& O X 4 Adaptive Equipment/Durable Medical BED RAILS, GRAB BARS BY HER Equipment needed/recommended TOILET AND BATH TUB. Functional Problem List DECREASED ENDURANCE, DECREASED OVERALL STRENGTH, DECREASED INDEPENDENCE WITH ADLS/IADLS AND FUNCTIONAL MOBILITY Therapuetic Interventions THERAPUTIC EXERCISES AND ACTIVITIES, ADL RETRAINING, A. E./DME EDUCATION Functional Goals of Treatment 1) MORAIMA WILL BE INDEPENDENT WITH ALL OT HEPS AND D/C RECOMMENDATIONS INCLUDING A.E. /DME USE AND PURCHASE. 2) MORAIMA WILL DEMO. INCREASE IN FUNCTIONAL ENDURANCE TO AT LEAST FAIR- FOR 20 MIN ADL. 3) MORAIMA WILL REQ MIN ASSIST TO COMPLETE SPONGE BATH WHILE SITTING AT SINK. 4) MORAIMA WILL REQ. MIN ASSIST TO COMPLETE UE AND LE DRESSING WHILE SEATED UP IN CHAIR (WITH A.E./DME NEEDED ). OT Inpatient Plan of Care Date of Evaluation 05/11/22 Treatment Diagnosis DECONDITIONING R/T BLE INFECTION (MRSA) AND UTI Precaution/Orders as written OT EVAL AND TX Frequency/Duration 5X/WK Patient assessed for Rehab Services Yes Was notification received of nursing Yes assessment trigger Chart screen completed Yes Are referral orders warranted for Yes evaluation Is an intervention justified at this Yes time Initialized on 05/11/22 17:47 - END OF NOTE Assessment/Plan (1) Ulcer of extremity due to chronic venous insufficiency Current Visit: Yes Status: Acute Assessment & Plan: Patient examination evaluation debridement performed at bedside of wound measurements seen in physical section of note Unna boots applied to the bilateral lower extremity. Antibiotics being managed by medicine at this time. Will follow closely Code(s): L98.499 - NON-PRESSURE CHRONIC ULCER OF SKIN OF SITES W UNSP SEVERITY; I87.2 - VENOUS INSUFFICIENCY (CHRONIC) (PERIPHERAL) (2) Localized edema due to fluid overload Current Visit: Yes Status: Acute Code(s): E87.70 - FLUID OVERLOAD, UNSPECIFIED (3) Type 2 diabetes mellitus Current Visit: No Status: Chronic Qualifiers: (4) Bilateral lower leg cellulitis Current Visit: No Status: Acute Code(s): L03.116 - CELLULITIS OF LEFT LOWER LIMB; L03.115 - CELLULITIS OF RIGHT LOWER LIMB
--- NOTE | 2022-05-12 17:15 | PCM.NOTE ---
Date and Time: 05/12/22 171 Subjective Assessment: dressings soiled once again. Physical Exam - Narrative Narrative Physical Exam: Podiatry Physical Exam debridement of wounds Right anterior wound 5.8 x 4.2 Right medial blister 10.9 x 8.6 Left anterior 1.2 x 1.4 Left lateral blister 2.1 x 2.0 OBJECTIVE DATA Vital Signs: Vital Signs - 24 hr Temp Pulse Resp BP Pulse Ox 05/12/22 07:52 97.3 F 65 16 174/74 96 Intake and Output: Intake & Output 05/10/22 05/11/22 05/12/22 05/13/22 11:59 11:59 11:59 11:59 Intake Total 720 120 240 Balance 720 120 240 Weight 134.3 kg Lab Results: Lab Results-Last 24 Hours 05/12/22 05/12/22 Range/Units 07:28 16:56 POC Glucometer 99 140 H (74 to 106) mg/dL Multi-Disciplinary Progress Notes: Multi-Disciplinary Progress Notes 05/12/22 15:53 Occupational Therapy Note by Josh(L#[id number])Malinda Occupational Therapy Treatment Session 05/12/2022, [id number] Patient seated at EOB with TEACHER [employer]ULT EDUCATION present assisting patient with BM clean-up. Patient completed sit EOB>stand transfer with mod cueing for UB placement and MIN A x2 followed by functional transfer to recliner with CGA using RW. OTR provided min verbal cueing for safety prior to patient performing sit in re cliner for safety awareness and positioning. Patient then participated in UB grooming/hygiene tasks to wash hair and brush hair with setup and rest breaks as needed in sitting. Patient participated in BUE AROM and strengthening ther ex's including arm raises, chest presses, bidirectional rows, side arm raises, and bicep curls 2x10 reps. Patient reported she felt "good" at end of treatment session. She was seated in recliner with BLE elevated and heels floating on pillow with call light, room phone, cell phone, and bedside table within reach. Will continue to see patient through duration of stay to facilitate improved functional strength, endurance, and independence and safety with I/ADLs. Initialized on 05/12/22 15:53 - END OF NOTE 05/11/22 17:47 OT Plan of Care Note by Jaycob(Darren#[id number]),Rhonda OT Eval OT Eval and Treat Order Start: 05/11/22 15:49 Freq: ROUTINE Status: Complete Protocol: Created 05/11/22 15:50 ERENDIRA (Rec: 05/11/22 15:50 ERENDIRA MRS- [id number]) Document 05/11/22 17:20 AL (Rec: 05/11/22 17:32 AL [id number]) OT Assessment Pertinent Past Medical History MORAIMA LIVES WITH HER DAUGHTER AND [id number] WHO ARE ABLE TO PROVIDE 24 HOUR CARE. SHE HAS [facility] AND THEY WILL PLAN TO CONT CARE ONCE SHE IS D/C TO HOME. SHE WAS IN LTC FACILITY FOR APPROX A YEAR AFTER HAVING FALLS AT HOME. WAS HOME FOR APPROX. 6 WEEKS BEFORE HAVING THIS ACUTE CARE ADMISSION. WAS ADMITTED TO ACUTE CARE ON 05/04/22 AND SWING BED ON 05/10. Equipment at Home Prior to Admission Special Bed,Walker Comment HAS HOSPITABL BED AT HOME ( HOWEVER IT HAS NO SIDE RAILS) HER FAMILY ARE GOING TO TRY TO PUT RAILS ON SIDE OF BED BEFORE SHE D/C TO HOME. ALSO HAS TTB IN TUB/SHOWER COMBO Date 05/11/22 Feeding WFL Grooming WFL Comment NEEDS SET-UP Bathing Impaired Comment MOD ASSIST WITH UE AND MAX ASSIST WITH LE SPONGE BATHING CURRENTLY. Dressing Impaired Comment MOD-MAX ASSIST Toileting Impaired Comment M0D ASSIST WITH CLOTHING MANAGEMENT AND TOILET HYGEINE IADLS (If indicated) Homemaking,etc Impaired Comment SHE REPORTS HER FAMILY WILL PROVIDE ASSIST FOR ALL IADLS ONCE SHE IS D/C TO HOME. Bed Mobility Impaired Comment MOD ASSIST Toilet Transfers Impaired Comment MIN-MOD ASSIST Functional Transfers Impaired Comment MIN-MOD ASSIST Functional Endurance POOR+ FOR 15 MIN ADL SESSION Cognition SHE DEMO GOOD ALERTNESS AND A& O X 4 Adaptive Equipment/Durable Medical BED RAILS, GRAB BARS BY HER Equipment needed/recommended TOILET AND BATH TUB. Functional Problem List DECREASED ENDURANCE, DECREASED OVERALL STRENGTH, DECREASED INDEPENDENCE WITH ADLS/IADLS AND FUNCTIONAL MOBILITY Therapuetic Interventions THERAPUTIC EXERCISES AND ACTIVITIES, ADL RETRAINING, A. E./DME EDUCATION Functional Goals of Treatment 1) MORAIMA WILL BE INDEPENDENT WITH ALL OT HEPS AND D/C RECOMMENDATIONS INCLUDING A.E. /DME USE AND PURCHASE. 2) MORAIMA WILL DEMO. INCREASE IN FUNCTIONAL ENDURANCE TO AT LEAST FAIR- FOR 20 MIN ADL. 3) MORAIMA WILL REQ MIN ASSIST TO COMPLETE SPONGE BATH WHILE SITTING AT SINK. 4) MORAIMA WILL REQ. MIN ASSIST TO COMPLETE UE AND LE DRESSING WHILE SEATED UP IN CHAIR (WITH A.E./DME NEEDED ). OT Inpatient Plan of Care Date of Evaluation 05/11/22 Treatment Diagnosis DECONDITIONING R/T BLE INFECTION (MRSA) AND UTI Precaution/Orders as written OT EVAL AND TX Frequency/Duration 5X/WK Patient assessed for Rehab Services Yes Was notification received of nursing Yes assessment trigger Chart screen completed Yes Are referral orders warranted for Yes evaluation Is an intervention justified at this Yes time Initialized on 05/11/22 17:47 - END OF NOTE Assessment/Plan (1) Ulcer of extremity due to chronic venous insufficiency Current Visit: Yes Status: Acute Assessment & Plan: Patient examination evaluation Unna boots applied to the bilateral lower extremity. Antibiotics being managed by medicine at this time. Will follow closely Code(s): L98.499 - NON-PRESSURE CHRONIC ULCER OF SKIN OF SITES W UNSP SEVERITY; I87.2 - VENOUS INSUFFICIENCY (CHRONIC) (PERIPHERAL) (2) Localized edema due to fluid overload Current Visit: Yes Status: Acute Code(s): E87.70 - FLUID OVERLOAD, UNSPECIFIED (3) Type 2 diabetes mellitus Current Visit: No Status: Chronic Qualifiers: (4) Bilateral lower leg cellulitis Current Visit: No Status: Acute Code(s): L03.116 - CELLULITIS OF LEFT LOWER LIMB; L03.115 - CELLULITIS OF RIGHT LOWER LIMB
[2022-05-12] MEDS: ZOCOR 20MG PO SCH (21:36)
[2022-05-12] MEDS: MELATONIN PO SCH (21:36)
[2022-05-12] MEDS: LOPROX TOP SCH (21:37)
[2022-05-12] MEDS: KENALOG 0.1% LOTION TP SCH (21:39)
[2022-05-13] MEDS: Merrem 1 GM in Sodium Chloride 100ML MINI-BAG PLUS 100 ML IV SCH ×2 (05:26→17:08)
[2022-05-13] MEDS: IMODIUM 2 MG PO PRN ×2 (07:33→10:56)
[2022-05-13] MEDS: ZENPEP DR 5,000 UNIT CAPSULE PO SCH ×3 (07:34→16:32)
[2022-05-13] MEDS: Cymbalta 30 MG Capsule PO SCH (09:16)
[2022-05-13] MEDS: ZYLOPRIM 100 MG PO SCH (09:16)
[2022-05-13] MEDS: Acidophilus TABLET PO SCH ×3 (09:16→22:01)
[2022-05-13] MEDS: Lantus Insulin SQ SCH (09:16)
[2022-05-13] MEDS: Mirapex 0.5 MG Tablet PO SCH ×3 (09:16→22:01)
[2022-05-13] MEDS: Lopressor 25MG Tab PO SCH ×2 (09:16→22:01)
[2022-05-13] MEDS: Ditropan 5 MG PO SCH ×2 (09:17→22:01)
[2022-05-13] MEDS: Santyl OINTMENT TOP SCH (09:17)
[2022-05-13] MEDS: NYSTOP POWDER 15 GM TP SCH ×3 (09:17→22:03)
[2022-05-13] MEDS: SYNTHROID 25 MCG PO SCH (09:17)
[2022-05-13] MEDS: ELAVIL 10 MG PO SCH (09:17)
[2022-05-13] MEDS ORDERED: Xylocaine-Mpf 2% 5 Ml Vial ONE (12:16)
[2022-05-13] MEDS: TYLENOL 325 MG PO PRN (14:00)
[2022-05-13] MEDS: ZOCOR 20MG PO SCH (22:01)
[2022-05-13] MEDS: MELATONIN PO SCH (22:01)
[2022-05-13] MEDS: KENALOG 0.1% LOTION TP SCH (22:02)
[2022-05-13] MEDS: LOPROX TOP SCH (22:02)
[2022-05-14] MEDS: Merrem 1 GM in Sodium Chloride 100ML MINI-BAG PLUS 100 ML IV SCH ×2 (05:52→17:21)
[2022-05-14] MEDS: ZENPEP DR 5,000 UNIT CAPSULE PO SCH ×4 (08:30→16:17)
[2022-05-14] MEDS: Acidophilus TABLET PO SCH ×3 (08:44→21:30)
[2022-05-14] MEDS: Lantus Insulin SQ SCH (08:44)
[2022-05-14] MEDS: ELAVIL 10 MG PO SCH (08:44)
[2022-05-14] MEDS: Ditropan 5 MG PO SCH ×2 (08:45→21:30)
[2022-05-14] MEDS: SYNTHROID 25 MCG PO SCH (08:45)
[2022-05-14] MEDS: NYSTOP POWDER 15 GM TP SCH ×3 (08:45→21:31)
[2022-05-14] MEDS: IMODIUM 2 MG PO PRN (08:45)
[2022-05-14] MEDS: Mirapex 0.5 MG Tablet PO SCH ×3 (08:45→21:29)
[2022-05-14] MEDS: Cymbalta 30 MG Capsule PO SCH (08:45)
[2022-05-14] MEDS: ZYLOPRIM 100 MG PO SCH (08:45)
[2022-05-14] MEDS: Lopressor 25MG Tab PO SCH ×2 (08:45→21:30)
[2022-05-14] MEDS: Santyl OINTMENT TOP SCH (08:46)
[2022-05-14] MEDS: Lomotil PO PRN ×2 (12:39→14:12)
[2022-05-14 13:08] LABS: Absolute Neutrophil Ct (ANC) 3.16 x10^3/uL (1.4-6.9); Basophil (Absolute #) 0.03 x10^3/uL (0-0.4); Eosinophil % 1.7 % (0.00-5.0); Eosinophil (Absolute #) 0.09 x10^3/uL (0-0.5); Hematocrit 34.7 % (35-47); Hemoglobin 10.5 g/dL (12.0-16.0); Lymphocyte (Absolute #) 1.71 x10^3/uL (1.0-4.6); Lymphocytes % 31.6 % (24.0-44.0); Mean Cell Volume 86.5 fL (78-100); Mean Corpuscular Hemoglobin 26.2 pg (26-32); Mean Corpuscular Hgb Concent. 30.3 g/dL (32-36); Mean Platelet Volume 9.7 fL (7.5-11.0); Monocyte (Absolute #) 0.41 x10^3/uL (0.0-1.3); Monocytes % 7.6 % (0.0-12.0); Neutrophil % 58.3 % (36.0-66.0); Platelet Count 241 x10^3/uL (150-450); Red Blood Count 4.01 x10^6/uL (4.1-5.4); Red Cell Distribution Width 19.9 % (11.5-14.0); White Blood Count 5.4 x10^3/uL (4.0-10.5)
[2022-05-14 13:26] LABS: ALBUMIN 3.2 g/dL (3.5-5.0); ANION GAP 11.7 MEQ/L (5-15); BILIRUBIN,TOTAL 0.8 mg/dL (0.2-1.3); Calcium 8.2 mg/dL (8.4-10.2); EST GLOMERULAR FILTRATION RATE 57.6 ML/MIN; Potassium 4.7 mmol/L (3.5-5.1); TSH, 3RD Generation 2.53 mIU/L (0.47-4.68); Total Protein 6.6 g/dL (6.3-8.2)
[2022-05-14] MEDS: MELATONIN PO SCH (21:30)
[2022-05-14] MEDS: ZOCOR 20MG PO SCH (21:30)
[2022-05-14] MEDS: LOPROX TOP SCH (21:31)
[2022-05-14] MEDS: KENALOG 0.1% LOTION TP SCH (21:31)
[2022-05-15] MEDS: Merrem 1 GM in Sodium Chloride 100ML MINI-BAG PLUS 100 ML IV SCH ×2 (06:07→17:00)
[2022-05-15] MEDS: ZENPEP DR 5,000 UNIT CAPSULE PO SCH ×3 (07:44→16:21)
[2022-05-15] MEDS: Mirapex 0.5 MG Tablet PO SCH ×3 (08:38→21:55)
[2022-05-15] MEDS: Acidophilus TABLET PO SCH ×3 (08:39→21:50)
[2022-05-15] MEDS: Lantus Insulin SQ SCH (08:39)
[2022-05-15] MEDS: ZYLOPRIM 100 MG PO SCH (08:39)
[2022-05-15] MEDS: Ditropan 5 MG PO SCH ×2 (08:39→21:50)
[2022-05-15] MEDS: NYSTOP POWDER 15 GM TP SCH ×3 (08:39→21:51)
[2022-05-15] MEDS: Cymbalta 30 MG Capsule PO SCH (08:39)
[2022-05-15] MEDS: SYNTHROID 25 MCG PO SCH (08:39)
[2022-05-15] MEDS: Lopressor 25MG Tab PO SCH ×2 (08:39→21:51)
[2022-05-15] MEDS: ELAVIL 10 MG PO SCH (08:39)
[2022-05-15] MEDS: Santyl OINTMENT TOP SCH ×2 (08:40→08:47)
[2022-05-15] MEDS: Lomotil PO PRN (08:45)
[2022-05-15] MEDS ORDERED: ZOFRAN ODT 4 MG PO PRN (13:53)
[2022-05-15] MEDS: MELATONIN PO SCH (21:49)
[2022-05-15] MEDS: ZOCOR 20MG PO SCH (21:50)
[2022-05-15] MEDS: LOPROX TOP SCH (21:51)
[2022-05-15] MEDS: KENALOG 0.1% LOTION TP SCH (21:52)
[2022-05-16] MEDS: Merrem 1 GM in Sodium Chloride 100ML MINI-BAG PLUS 100 ML IV SCH ×2 (06:34→18:24)
--- NOTE | 2022-05-16 08:39 | PCM.NOTE ---
Date and Time: 05/16/22833 Subjective Assessment: Pt continues to have diarrhea about twice a week, which she has chronically at home. She is tolerating po. Her legs are wrapped and doing better, she says. Sometimes has wheezing. - Review of Systems Constitutional: No Fever Abdominal/Gastrointestinal: No Vomiting Objective Exam General Appearance: no apparent distress, obese Neurologic Exam: alert, cooperative Skin Exam: warm, dry, No rash Wound Assessment: Skin/Wound Assessment Wound/Incision Assessment Start: 05/13/22 23:16 Text: Status: Active Freq: Q6H Protocol: Document 05/16/22 03:26 RB (Rec: 05/16/22 03:26 RB [id number]) Wound/Incision Assessment Lower Calf Wound Assessment Shift Assessment Wound Stage Non Pressure Wound Comment IVANNA LOWER LEGS DRSG C/D/I. PT CHANGES DRSG DAILY. OUTER DRSG WITH COBAN. Eye Exam: eyes nml inspection Ears, Nose, Throat Exam: moist mucous membranes Neck Exam: normal inspection Respiratory Exam: normal breath sounds, No lungs clear, No crackles/rales, No rhonchi, No wheezing Cardiovascular Exam: regular rate/rhythm, normal heart sounds, No murmur Gastrointestinal/Abdomen Exam: soft, normal bowel sounds, No tenderness, No distention, No mass, No guarding, No rebound Extremity Exam: other (feet/lower legs wrapped bilat) OBJECTIVE DATA Vital Signs: Vital Signs - 24 hr Temp Pulse Resp BP Pulse Ox 05/16/22 07:42 97.5 F 60 15 150/64 96 05/15/22 19:45 97.7 F 62 19 137/70 94 L Pain Assessment - Last Documented Pain Scale Used 0-10 Pain Scale Intake and Output: Intake & Output 05/13/22 05/14/22 05/15/22 05/16/22 11:59 11:59 11:59 11:59 Intake Total 640 1300 840 480 Balance 640 1300 840 480 Weight 134.3 kg 144 kg Lab Results: Lab Results-Last 24 Hours 05/15/22 05/15/22 05/15/22 Range/Units 11:27 17:02 20:34 POC Glucometer 92 169 H 195 H (74 to 106) mg/dL Assessment/Plan (1) Wound of lower extremity Current Visit: No Status: Chronic Qualifiers: Encounter type: subsequent encounter Laterality: unspecified laterality Qualified Code(s): S81.809D - Unspecified open wound, unspecified lower leg, subsequent encounter Assessment & Plan: Will be on 14 days total, finishing this . She plans to go home. F/u with Dr. Tran and with PCP. Code(s): S81.809A - UNSPECIFIED OPEN WOUND, UNSPECIFIED LOWER LEG, INIT ENCNTR (2) CAD (coronary artery disease) Current Visit: No Status: Chronic Qualifiers: Coronary Disease-Associated Artery/Lesion type: [place] artery [place] vs. transplanted heart: [place] heart Associated angina: without angina Qualified Code(s): I25.10 - Atherosclerotic heart disease of [place] coronary artery without angina pectoris Code(s): I25.10 - ATHSCL HEART DISEASE OF [place] CORONARY ARTERY W/O ANG PCTRS (3) Diabetes mellitus type II, controlled Current Visit: No Status: Chronic Qualifiers: Diabetes mellitus intermediate insulin use: with intermediate use Diabetes mellitus complication status: with skin complications Diabetes mellitus complication detail: with other skin ulcer Qualified Code(s): E11.622 - Type 2 diabetes mellitus with other skin ulcer; Z79.4 - exterminator helper (current) use of ins ulin Code(s): E11.9 - TYPE 2 DIABETES MELLITUS WITHOUT COMPLICATIONS (4) Pacemaker Current Visit: No Status: Chronic Code(s): Z95.0 - PRESENCE OF CARDIAC PACEMAKER (5) Paroxysmal atrial fibrillation Current Visit: No Status: Chronic Code(s): I48.0 - PAROXYSMAL ATRIAL FIBRILLATION
[2022-05-16] MEDS: Cymbalta 30 MG Capsule PO SCH (09:09)
[2022-05-16] MEDS: Mirapex 0.5 MG Tablet PO SCH ×3 (09:09→21:13)
[2022-05-16] MEDS: SYNTHROID 25 MCG PO SCH (09:10)
[2022-05-16] MEDS: Lopressor 25MG Tab PO SCH ×2 (09:10→21:13)
[2022-05-16] MEDS: Ditropan 5 MG PO SCH ×2 (09:11→21:13)
[2022-05-16] MEDS: ZYLOPRIM 100 MG PO SCH (09:11)
[2022-05-16] MEDS: ELAVIL 10 MG PO SCH (09:11)
[2022-05-16] MEDS: Lantus Insulin SQ SCH (09:11)
[2022-05-16] MEDS: Acidophilus TABLET PO SCH ×3 (09:11→21:13)
[2022-05-16] MEDS: ZENPEP DR 5,000 UNIT CAPSULE PO SCH ×3 (09:11→16:29)
[2022-05-16] MEDS: NYSTOP POWDER 15 GM TP SCH ×3 (09:12→21:14)
[2022-05-16] MEDS ORDERED: PROVENTIL 2.5 MG/3 ML NEB IH SCH (11:00)
[2022-05-16] MEDS: Santyl OINTMENT TOP SCH (11:06)
[2022-05-16] MEDS: IMODIUM 2 MG PO PRN (14:14)
[2022-05-16] MEDS ORDERED: PROVENTIL 2.5 MG/3 ML NEB IH PRN (14:51)
--- NOTE | 2022-05-16 15:31 | PCM.NOTE ---
Date and Time: 05/16/22 1528 Subjective Assessment: soiled dressings Physical Exam - General General Appearance: no apparent distress - Neuro Neurologic: Epicritic and protopathic - Vascular Peripheral Pulses: Posterior tibialis: 2+, Dorsalis-Pedis: 2+ Capillary Refill Time: < 3 seconds Hair Growth: Symmetrical and Bilateral Varicosities: Positive Edema Degree: 3+ - Narrative Narrative Physical Exam: Podiatry Physical Exam debridement of wounds Right anterior wound 5.8 x 4.2 -->5.9 x 3.8 Right medial blister 10.9 x 8.6 --> 8.5 x 6.5 Left anterior 1.2 x 1.4 --> 0.5 x 0.7 Left lateral blister 2.1 x 2.0 --> healed OBJECTIVE DATA Vital Signs: Vital Signs - 24 hr Temp Pulse Resp BP Pulse Ox 05/16/22 11:33 66 14 97 05/16/22 07:42 97.5 F 60 15 150/64 96 05/15/22 19:45 97.7 F 62 19 137/70 94 L Pain Assessment - Last Documented Pain Scale Used 0-10 Pain Scale Intake and Output: Intake & Output 05/14/22 05/15/22 05/16/22 05/17/22 11:59 11:59 11:59 11:59 Intake Total 1300 840 580 Balance 1300 840 580 Weight 144 kg Lab Results: Lab Results-Last 24 Hours 05/15/22 05/15/22 05/16/22 Range/Units 17:02 20:34 11:31 POC Glucometer 169 H 195 H 113 H (74 to 106) mg/dL Multi-Disciplinary Progress Notes: Multi-Disciplinary Progress Notes 05/16/22 10:07 Case Management Note by Christelle Olmos PATIENT TO CONTINUE ANTIBIOTIC REGIMEN IN SWINGBED UNTIL SHE FINISHES A FULL COURSE Initialized on 05/16/22 10:07 - END OF NOTE Assessment/Plan (1) Ulcer of extremity due to chronic venous insufficiency Current Visit: Yes Status: Acute Assessment & Plan: Patient examination evaluation Wounds debrdided post measurements noted. Unna boots applied to the bilateral lower extremity. Antibiotics being managed by medicine at this time. Will follow closely Code(s): L98.499 - NON-PRESSURE CHRONIC ULCER OF SKIN OF SITES W UNSP SEVERITY; I87.2 - VENOUS INSUFFICIENCY (CHRONIC) (PERIPHERAL) (2) Localized edema due to fluid overload Current Visit: Yes Status: Acute Code(s): E87.70 - FLUID OVERLOAD, UNSPECIFIED (3) Type 2 diabetes mellitus Current Visit: No Status: Chronic Qualifiers: (4) Bilateral lower leg cellulitis Current Visit: No Status: Acute Code(s): L03.116 - CELLULITIS OF LEFT LOWER LIMB; L03.115 - CELLULITIS OF RIGHT LOWER LIMB
[2022-05-16] MEDS: MELATONIN PO SCH (21:13)
[2022-05-16] MEDS: ZOCOR 20MG PO SCH (21:13)
[2022-05-16] MEDS: KENALOG 0.1% LOTION TP SCH (21:26)
[2022-05-16] MEDS: LOPROX TOP SCH (21:26)
[2022-05-17] MEDS: Merrem 1 GM in Sodium Chloride 100ML MINI-BAG PLUS 100 ML IV SCH ×2 (06:06→19:52)
[2022-05-17] MEDS: ZENPEP DR 5,000 UNIT CAPSULE PO SCH ×3 (06:06→16:24)
--- NOTE | 2022-05-17 09:26 | ANESPROCNO ---
Anesthesia Procedure Note - Anesthesia Procedure Note Procedure Date:: 05/17/22 Procedure Time:: 08:40 Anesthesia Procedure Note: Consulted for midline IV placement. Poor peripheral venous access. Ultrasound guided midline IV placement risks/benefits discussed with patient and agrees to proceed. Left upper extremity scanned using ultrasound and target vessel identified left basilic vein. LUE sterile prep 2%CHG70%IPA and drape. Sterile ultrasound probe cover used. Skin and subcutaneous tissue above target vessel localized with 5cc 2% lidocaine. A 21ga X 7cm echo enhanced needle was introduced X 1 attempt into left basilic vein. A 0.46mm Nitinol wire was then placed through needle into vessel and needle removed. Wire placement verified using ultrasound in both short and long axis. A 4F X 10cm co-axial catheter was then threaded over wire into vessel and wire removed. Positive brisk venous blood return and flushes easily. A sterile occlusive dressing was applied. There were no complications and the patient tolerated the procedure well.
[2022-05-17] MEDS: Cymbalta 30 MG Capsule PO SCH (12:17)
[2022-05-17] MEDS: Acidophilus TABLET PO SCH ×3 (12:17→22:25)
[2022-05-17] MEDS: ELAVIL 10 MG PO SCH (12:17)
[2022-05-17] MEDS: Lopressor 25MG Tab PO SCH ×2 (12:18→22:25)
[2022-05-17] MEDS: SYNTHROID 25 MCG PO SCH (12:18)
[2022-05-17] MEDS: ZYLOPRIM 100 MG PO SCH (12:18)
[2022-05-17] MEDS: Ditropan 5 MG PO SCH ×2 (12:18→22:25)
[2022-05-17] MEDS: Lantus Insulin SQ SCH (12:19)
[2022-05-17] MEDS: Mirapex 0.5 MG Tablet PO SCH ×3 (12:21→22:25)
[2022-05-17] MEDS: NYSTOP POWDER 15 GM TP SCH ×3 (12:23→22:52)
[2022-05-17] MEDS: Santyl OINTMENT TOP SCH (12:25)
[2022-05-17] MEDS: Lomotil PO PRN (15:35)
[2022-05-17] MEDS ORDERED: Xylocaine-Mpf 2% 5 Ml Vial IJ ONE (17:11)
[2022-05-17] MEDS: TYLENOL 325 MG PO PRN (20:32)
[2022-05-17] MEDS: MELATONIN PO SCH (22:25)
[2022-05-17] MEDS: ZOCOR 20MG PO SCH (22:25)
[2022-05-17] MEDS: KENALOG 0.1% LOTION TP SCH (22:50)
[2022-05-17] MEDS: LOPROX TOP SCH (22:51)
[2022-05-18] MEDS: Merrem 1 GM in Sodium Chloride 100ML MINI-BAG PLUS 100 ML IV SCH ×2 (06:11→17:48)
[2022-05-18] MEDS: ZENPEP DR 5,000 UNIT CAPSULE PO SCH ×3 (07:44→16:44)
[2022-05-18] MEDS: Mirapex 0.5 MG Tablet PO SCH ×3 (09:09→22:43)
[2022-05-18] MEDS: NYSTOP POWDER 15 GM TP SCH ×3 (09:09→22:45)
[2022-05-18] MEDS: ZYLOPRIM 100 MG PO SCH (09:09)
[2022-05-18] MEDS: ELAVIL 10 MG PO SCH (09:09)
[2022-05-18] MEDS: Acidophilus TABLET PO SCH ×3 (09:09→22:44)
[2022-05-18] MEDS: Ditropan 5 MG PO SCH ×2 (09:09→22:44)
[2022-05-18] MEDS: SYNTHROID 25 MCG PO SCH (09:09)
[2022-05-18] MEDS: Cymbalta 30 MG Capsule PO SCH (09:09)
[2022-05-18] MEDS: Lopressor 25MG Tab PO SCH ×2 (09:10→22:43)
[2022-05-18] MEDS: Santyl OINTMENT TOP SCH (09:11)
[2022-05-18] MEDS: Lomotil PO PRN (09:11)
[2022-05-18] MEDS: Lantus Insulin SQ SCH (11:51)
--- NOTE | 2022-05-18 17:09 | PCM.NOTE ---
Date and Time: 05/18/22 1707 Subjective Assessment: soiled dressings Physical Exam - Narrative Narrative Physical Exam: Podiatry Physical Exam Podiatry Physical Exam debridement of wounds Right anterior wound 5.8 x 4.2 -->5.9 x 3.8 --> 5.5 x 3.3 Right medial blister 10.9 x 8.6 --> 8.5 x 6.5 --> 7.5 x 4.6 Left anterior 1.2 x 1.4 --> 0.5 x 0.7--> 0.5 x 0.7 Left lateral blister 2.1 x 2.0 --> healed New left lateral blister 3.0 x3.6 OBJECTIVE DATA Vital Signs: Vital Signs - 24 hr Temp Pulse Resp BP Pulse Ox 05/18/22 07:16 98.0 F 66 16 151/67 95 05/18/22 07:06 63 16 97 05/17/22 20:00 97.9 F 59 L 59 H 143/72 99 05/17/22 19:57 58 L 16 94 L Pain Assessment - Last Documented Pain Intensity 4 Pain Scale Used 0-10 Pain Scale Intake and Output: Intake & Output 05/16/22 05/17/22 05/18/22 05/19/22 11:59 11:59 11:59 11:59 Intake Total 580 240 380 Balance 580 240 380 Lab Results: Lab Results-Last 24 Hours 05/17/22 05/18/22 05/18/22 Range/Units 21:04 06:55 11:48 POC Glucometer 113 H 58 L 102 (74 to 106) mg/dL 05/18/22 Range/Units 16:04 POC Glucometer 108 H (74 to 106) mg/dL Multi-Disciplinary Progress Notes: Multi-Disciplinary Progress Notes 05/18/22 16:18 Occupational Therapy Note by Lisa Martines Occupational Therapy Treatment (15:55-16:10) PATIENT HAD JUST PARTICIPATED IN PHYSICAL THERAPY TREATMENT PRIOR TO OT SESSION. PATIENT REPORTS THE NEED TO BE ABLE TO WALK APPROXIMATELY 15-20 FEET (TO AND FROM BATHROOM) AT HOME, BUT STATES THAT SHE HAS INCREASED FATIGUE TODAY. PATIENT ENGAGES IN CERVICAL, SCAPULAR, AND SHOULDER STRETCHES AND AROM. DUE TO NEW IV IN RIGHT ARM AND MIDLINE IN LEFT UPPER ARM, LIGHT AROM EXERCISES COMPETED THIS DATE INSTEAD OF RESISTIVE TRAINING. PATIENT THEN COMPLETES 2 SIT<>STAND T/F WITH MIN ASSIST X1 TO FACILITATE SAFE BED/SHOWER/TOILET TRANSFERS FOR RETURN TO HOME. Initialized on 05/18/22 16:18 - END OF NOTE 05/18/22 09:18 Case Management Note by Frieda Morgan PATIENT PLANS FOR D/C AFTER MAX SWING BED DAYS USED. PLANS TO GO HOME WITH DAUGHTER AND C. Initialized on 05/18/22 09:18 - END OF NOTE 05/17/22 17:28 Occupational Therapy Note by Josh(L#[id number])Malinda Occupational Therapy Treatment Note, 05/17/2022, [id number] Patient seated in recliner with legs down trying to reach room phone up on OTR approach. Patient pleasant and agreeable to treatment session this date. Patient ellie attention to midline IV catheter at LUE and UE exercises were focused to RUE this date with red theraband. Patient participated in functional sit<>stand transfers and in-room functional mobility using FWW within room in order to address functional strength and endurance for I/ADLs including toileting, grooming/hygiene at sink, and dressing in standing. OTR educated patient on safety strategies in prep for sitting and patient verbalized understanding without demo of carryover. Patient participated in deep breathing ex's upon sitting to reduce SOB, demo'ing proper technique. Patient seated in recliner with BLE elevated and call light, phone, and bedside table within reach at end of treatment session. Initialized on 05/17/22 17:28 - END OF NOTE Assessment/Plan (1) Ulcer of extremity due to chronic venous insufficiency Current Visit: Yes Status: Acute Assessment & Plan: Patient examination evaluation Wounds debrdided post measurements noted. Unna boots applied to the bilateral lower extremity. Antibiotics being managed by medicine at this time. Will follow closely Code(s): L98.499 - NON-PRESSURE CHRONIC ULCER OF SKIN OF SITES W UNSP SEVERITY; I87.2 - VENOUS INSUFFICIENCY (CHRONIC) (PERIPHERAL) (2) Localized edema due to fluid overload Current Visit: Yes Status: Acute Code(s): E87.70 - FLUID OVERLOAD, UNSPECIFIED (3) Type 2 diabetes mellitus Current Visit: No Status: Chronic Qualifiers: (4) Bilateral lower leg cellulitis Current Visit: No Status: Acute Code(s): L03.116 - CELLULITIS OF LEFT LOWER LIMB; L03.115 - CELLULITIS OF RIGHT LOWER LIMB
[2022-05-18] MEDS: TYLENOL 325 MG PO PRN (19:50)
[2022-05-18] MEDS: ZOCOR 20MG PO SCH (22:43)
[2022-05-18] MEDS: MELATONIN PO SCH (22:45)
[2022-05-18] MEDS: LOPROX TOP SCH (22:46)
[2022-05-18] MEDS: KENALOG 0.1% LOTION TP SCH (22:47)
[2022-05-19] MEDS: Merrem 1 GM in Sodium Chloride 100ML MINI-BAG PLUS 100 ML IV SCH (06:26)
[2022-05-19] MEDS: ZENPEP DR 5,000 UNIT CAPSULE PO SCH ×2 (07:52→11:38)
[2022-05-19] MEDS: Lomotil PO PRN (08:02)
--- NOTE | 2022-05-19 08:47 | PCM.DS ---
Discharge Summary Date of Admission: 05/10/22 11:30 Admitting Physician: GILSON FELIX Primary Care Provider: ENRIQUETA CONROY Allergies Allergies No Known Drug Allergies Allergy (Unverified 05/10/22 14:30) Hospital Summary - Hospital Course Hospital Course: Pt is 76 yo female with PMHx migraine, TIA, HTN, hyperlipidemia, DMII, paroxysmal afib, degen disc dz, Crohn's dz (dx this year?), peripheral neuropathy, and pacemaker (sees Dr. More). She was admitted to swing bed with leg wounds, after having been treated for AMS (due to leg wounds), UTI, and sepsis. She has been receiving treatment from Dr. Tran, thank you, and therapy. She is ready to discharge to home today with [facility]. Was found to have pseudomonas in the leg wounds, resistant to levaquin. I discussed with ID (Dr. Yang) and pt was treated for 14d with IV zosyn. Has been having diarrhea, which is chronic. C. diff neg. Please see the discharge summary from her acute care stay regarding those events, including blood transfusion. Xarelto had been held, after discussing with Dr. More - he was fine with holding it as long as she was in sinus rhythm. Her EGD was neg but her colonoscopy prep was too poor to procede with that. Will need to f/u in 1 week with PCP. - Vitals & Intake/Output Vital Signs: Vital Signs Temperature 97.8 F 05/18/22 20:00 Pulse Rate 84 05/19/22 07:34 Respiratory Rate 18 05/19/22 07:34 Blood Pressure 153/67 05/18/22 20:00 O2 Sat by Pulse Oximetry 98 05/19/22 07:34 Intake & Output: Intake & Output 05/16/22 05/17/22 05/18/22 05/19/22 11:59 11:59 11:59 11:59 Intake Total 580 240 380 120 Balance 580 240 380 120 - Lab Result Diagrams: 05/14/22 12:44 05/14/22 12:44 Lab Results-Last 24 Hrs: Lab Results-Last 24 Hours 05/18/22 05/18/22 05/18/22 Range/Units 11:48 16:04 20:50 POC Glucometer 102 108 H 139 H (74 to 106) mg/dL 05/19/22 Range/Units 07:34 POC Glucometer 106 (74 to 106) mg/dL Micro Results-Entire Visit: Microbiology 05/16/22 11:30 Anaerobic Culture - Final Leg - Right Lower Not Reportable Anaerobic Culture Result 1 - Final Not Reportable Anaerobic Culture Result 3 - Final Not Reportable Anaerobic Culture Result 4 - Final Not Reportable Anaerobic Bacterial Sensitivity - Final Not Reportable 05/16/22 11:30 Wound Culture - Preliminary Leg - Right Lower NO GROWTH TO DATE Accuchecks Date 05/18/22 Date 05/18/22 Date 05/18/22 Time 21:00 Time 16:06 Time 12:05 - Procedures and Test Procedures and Tests throughout Hospitalization: Therapy Orders & Screens 05/11/22 13:24 PT Clarification Order ROUTINE Comment: Physician Instructions: Reason For Exam: PT Clarification: PT. TO RX 5X/WK UNTIL D/C TO ADDRESS FUNCTIONAL MOBILITY AND GAIT TRAINING, THER EX, WELL BALANCE AND ENDURANCE ACTIVITIES TO MAXIMIZE FUNCTIONAL POTENTIAL TO RETURN HOME W/ ASSIST OF FAMILY. 05/11/22 15:49 OT Eval and Treat (MD Order) ROUTINE Comment: Consulting Provider: Physician Instructions: Reason For Exam: Diagnosis: DECONDITIONING R/T IVANNA. LEG INFECTION, UTI 05/11/22 17:43 OT Clarification Order ROUTINE Comment: Physician Instructions: Reason For Exam: OT Clarification: OT TO TX 5X/WK TO INCREASE OVERALL INDEPENDENCE WITH ADLS AND FUNCTIONAL MOBILITY FOR HER TO RETURN TO HOME WITH FAMILY WHILE REQ. THE LEAST AMOUNT OF ASSIST POSSIBLE. 05/16/22 09:48 Respiratory Therapy Assessment DAILY Comment: Diagnosis: DECONDITIONING R/T IVANNA. LEG INFECTION, UTI Discharge Exam General Appearance: no apparent distress, obese Neurologic Exam: oriented x 3, cooperative Eye Exam: eyes nml inspection Ears, Nose, Throat Exam: moist mucous membranes Neck Exam: normal inspection Respiratory Exam: normal breath sounds, lungs clear, No crackles/rales, No rhonchi, No wheezing Cardiovascular Exam: regular rate/rhythm, normal heart sounds, No murmur Gastrointestinal/Abdomen Exam: soft, normal bowel sounds, No tenderness, No distention, No mass, No guarding, No rebound Extremity Exam: other (LE wrapped bilat) Skin Exam: warm, dry, No rash Wound Assessment: Skin/Wound Assessment Wound/Incision Assessment Start: 05/13/22 23:16 Text: Status: Active Freq: Q6H Protocol: Document 05/19/22 02:00 LB (Rec: 05/19/22 04:05 LB [id number]) Wound/Incision Assessment Upper Coccyx Wound Assessment Shift Assessment Wound Type SHEARING Wound Stage Non Pressure Wound Comment BARRIER CREAM APPLIED Right Calf Wound Assessment Shift Assessment Wound Stage Non Pressure Wound Primary Dressing UNABOOT Lower Calf Wound Assessment Shift Assessment Wound Stage Non Pressure Wound Dressing Status Dry & Intact Primary Dressing UNABOOTS Wound Photo Photo Taken Yes Comment: IN CHART Final Diagnosis/Problem List - Final Discharge Diagnosis/Problem (1) Wound of lower extremity Current Visit: No Status: Chronic Assessment & Plan: Bilat, due to venous insufficiency. Per Dr. Tran, thank you. Ready to d/c to home today. Code(s): S81.809A - UNSPECIFIED OPEN WOUND, UNSPECIFIED LOWER LEG, INIT ENCNTR (2) CAD (coronary artery disease) Current Visit: No Status: Chronic Code(s): I25.10 - ATHSCL HEART DISEASE OF [place] CORONARY ARTERY W/O ANG PCTRS (3) Diabetes mellitus type II, controlled Current Visit: No Status: Chronic Code(s): E11.9 - TYPE 2 DIABETES MELLITUS WITHOUT COMPLICATIONS (4) Pacemaker Current Visit: No Status: Chronic Code(s): Z95.0 - PRESENCE OF CARDIAC PACEMAKER (5) Paroxysmal atrial fibrillation Current Visit: No Status: Chronic Code(s): I48.0 - PAROXYSMAL ATRIAL FIBRILLATION - Discharge Disposition: Home, Self-Care Condition: Good Prescriptions: New Loperamide HCl 2 mg [Imodium 2 mg] 4 mg PO PRN PRN cap PRN Reason: Diarrhea Continue Calcium Carb, Citrate/Vit D3 [Calcium + D3 ER Tablet] 1 tab PO DAILY Balsalazide Disodium 750 mg PO QHS Azelastine HCl 1 drop OP DAILY Aspirin EC 81 mg [Ecotrin 81 mg] 81 mg PO DAILY Allopurinol 100 mg [Zyloprim 100 mg] 100 mg PO DAILY Nitroglycerin 0.4 mg SL UD Metoprolol Tartrate 25 mg PO BID Insulin Lispro [Admelog Solostar] 6 unit SQ AC Furosemide 40 mg [Lasix 40 MG] 40 mg PO LUNCH Furosemide 80 mg PO DAILY Divalproex Sodium [Depakote] 500 mg PO EVENING MEAL Divalproex Sodium [Depakote] 250 mg PO DAILY Atorvastatin Calcium 80 mg PO QHS Duloxetine HCl [Cymbalta] 60 mg PO DAILY Duloxetine HCl 30 mg PO DAILY Vitamin B Complex 1 tab PO DAILY Rivaroxaban [Xarelto] 15 mg PO EVENING MEAL Pramipexole Di-HCl [Pramipexole Dihydrochloride] 1 mg PO TID Lipase/Protease/Amylase [Creon Dr 24,000 Unit Capsule] 24,000 units PO AC Oxybutynin Chloride 5 mg PO BID Levothyroxine Sodium [Levothyroxine] 25 mcg PO DAILY Collagenase Oint [Santyl OINTMENT] 1 applic TOP DAILY Ciclopirox/Skin Cleanser No.28 [Ciclodan 0.77% Cream Kit] 1 applic TOP QHS Amitriptyline HCl 10 mg [Elavil 10 mg] 10 mg PO DAILY Triamcinolone 0.1% Lotion [Kenalog 0.1% Lotion] 1 applic TOP QHS Melatonin 10 mg PO QHS Insulin Detemir [Levemir] 30 unit SQ QAM Nystatin Powder 15 gm [Nystop Powder 15 gm] 1 gm TP TID Follow up with: ENRIQUETA CONROY [Primary Care Provider] -
[2022-05-19] MEDS: ZYLOPRIM 100 MG PO SCH (09:31)
[2022-05-19] MEDS: Acidophilus TABLET PO SCH (09:31)
[2022-05-19] MEDS: Mirapex 0.5 MG Tablet PO SCH (09:31)
[2022-05-19] MEDS: Cymbalta 30 MG Capsule PO SCH (09:31)
[2022-05-19] MEDS: ELAVIL 10 MG PO SCH (09:31)
[2022-05-19] MEDS: Lantus Insulin SQ SCH (09:31)
[2022-05-19] MEDS: SYNTHROID 25 MCG PO SCH (09:31)
[2022-05-19] MEDS: Lopressor 25MG Tab PO SCH (09:31)
[2022-05-19] MEDS: Ditropan 5 MG PO SCH (09:31)
[2022-05-19] MEDS: NYSTOP POWDER 15 GM TP SCH (09:32)
[2022-05-19] MEDS: Santyl OINTMENT TOP SCH (09:33)
[2022-05-19 09:43] VITALS: BP 145/63; PULSE 60; O2SAT 99
== END 2022-05-19 13:45 | disposition home health service (06) | DRG 605 ==
LOC: MED SURG 11:30
PROVIDERS: ADMIT Family Medicine; ATTEND Family Medicine
DX: S81.801A Unspecified open wound, right lower leg, initial encounter (principal); L03.116 Cellulitis of left lower limb; L03.115 Cellulitis of right lower limb; N39.0 Urinary tract infection, site not specified; S81.802A Unspecified open wound, left lower leg, initial encounter; I25.10 Atherosclerotic heart disease of native coronary artery without angina pectoris; E11.9 Type 2 diabetes mellitus without complications; I48.0 Paroxysmal atrial fibrillation; I87.2 Venous insufficiency (chronic) (peripheral); E87.70 Fluid overload, unspecified; I10 Essential (primary) hypertension; E78.5 Hyperlipidemia, unspecified; R19.7 Diarrhea, unspecified; R41.82 Altered mental status, unspecified; E86.0 Dehydration; Z79.899 Other long term (current) drug therapy; Z20.828 Contact with and (suspected) exposure to other viral communicable diseases; Z95.0 Presence of cardiac pacemaker
CPT/HCPCS: 11042; 11045; 29580; 36410; 36415; 76942; 80053; 80164; 82947; 84443; 85025; 87070; 87075; 94640; 94760; 99100; 99305; 99310; J7609; Q0162; 97110-GP; A9270-GY

== ENCOUNTER 2022-05-27 20:28 | Observation (INO) | payer MEDICARE ==
--- NOTE | 2022-05-27 21:10 | ERPHSYRPT ---
- History of Present Illness Time Seen by Provider: 05/27/22 20:37 Source: patient Exam Limitations: no limitations Patient Subjective Stated Complaint: pt states she has increased swelling in her lower legs. increased redness, more blisters. Triage Nursing Assessment: pt alert and oriented, answers questions approp. pt arrove per ambulance and transfers to stretcher with assist of 4. respirations nonlabored. skin warm and dry. bilat lower legs marie, flaking skin, multiple fluid filled blisters. dark blister to posterior rt lower leg. ulcer to rt anterior lower leg with serosang drainage. ulcers to anterior lt lower leg. Physician History: 76-year-old female with history of paroxysmal atrial fibrillation on Xarelto, hypertension, hyperlipidemia, diabetes mellitus, bilateral lower extremity chronic venous stasis needing Unna boot/wrapping regularly, removed her dressing yesterday and put some gauze on it because there was oozing and blisters with multiple scales. This evening she has worsening of ulceration on the skin, vesicle and rash. Denies any chest pain palpitations or shortness of breath. Denies fever or chills. Timing/Duration: week(s), gradual onset, worse Quality: painful Severity: mild, moderate Location: extremities Possible Causes: no cause identified Associated Symptoms: blisters, change in skin texture, edema, rash, swelling/mass/lumps Allergies/Adverse Reactions: No Known Drug Allergies Allergy (Verified 05/27/22 20:42) Home Medications: Allopurinol 100 mg [Zyloprim 100 mg] 100 mg PO DAILY 04/17/22 [History] Amitriptyline HCl 10 mg [Elavil 10 mg] 10 mg PO DAILY 04/17/22 [History] Aspirin EC 81 mg [Ecotrin 81 mg] 81 mg PO DAILY 04/17/22 [History] Atorvastatin Calcium 80 mg PO QHS 04/17/22 [History] Azelastine HCl 1 drop OP DAILY 04/17/22 [History] Balsalazide Disodium 750 mg PO QHS 04/17/22 [History] Calcium Carb, Citrate/Vit D3 [Calcium + D3 ER Tablet] 1 tab PO DAILY 04/17/22 [History] Ciclopirox/Skin Cleanser No.28 [Ciclodan 0.77% Cream Kit] 1 applic TOP QHS 04/17/22 [History] Collagenase Oint [Santyl OINTMENT] 1 applic TOP DAILY 04/17/22 [History] Divalproex Sodium [Depakote] 250 mg PO DAILY 04/17/22 [History] Divalproex Sodium [Depakote] 500 mg PO EVENING MEAL 04/17/22 [History] Duloxetine HCl 30 mg PO DAILY 04/17/22 [History] Duloxetine HCl [Cymbalta] 60 mg PO DAILY 04/17/22 [History] Furosemide 80 mg PO DAILY 04/17/22 [History] Furosemide 40 mg [Lasix 40 MG] 40 mg PO LUNCH 04/17/22 [History] Insulin Lispro [Admelog Solostar] 6 unit SQ AC 04/17/22 [History] Levothyroxine Sodium [Levothyroxine] 25 mcg PO DAILY 04/17/22 [History] Lipase/Protease/Amylase [Elvis Dr 24,000 Unit Capsule] 24,000 units PO AC 04/17/22 [History] Metoprolol Tartrate 25 mg PO BID 04/17/22 [History] Nitroglycerin 0.4 mg SL UD 04/17/22 [History] Oxybutynin Chloride 5 mg PO BID 04/17/22 [History] Pramipexole Di-HCl [Pramipexole Dihydrochloride] 1 mg PO TID 04/17/22 [History] Rivaroxaban [Xarelto] 15 mg PO EVENING MEAL 04/17/22 [History] Vitamin B Complex 1 tab PO DAILY 04/17/22 [History] Melatonin 10 mg PO QHS 04/18/22 [History] Triamcinolone 0.1% Lotion [Kenalog 0.1% Lotion] 1 applic TOP QHS 04/18/22 [History] Insulin Detemir [Levemir] 30 unit SQ QAM 05/03/22 [History] Nystatin Powder 15 gm [Nystop Powder 15 gm] 1 gm TP TID 05/03/22 [History] Hx Tetanus, Diphtheria Vaccination/Date Given: Yes Hx Influenza Vaccination/Date Given: Yes Hx Pneumococcal Vaccination/Date Given: Yes Immunizations Up to Date: Yes Travel Risk - International Travel Have you traveled outside of the country in past 3 weeks: No - Coronavirus Screening Are you exhibiting any of the following symptoms?: No Close contact with a COVID-19 positive Pt in past 14-21 Days: Yes - Vaccine Status Have you recieved a Covid-19 vaccination: Yes Bodywork Therapist: Moderna - Vaccination Dates Date of 2cond Vaccination (if applicable): 2020 - Review of Systems Constitutional: No Symptoms Eyes: No Symptoms Ears, Nose, & Throat: No Symptoms Respiratory: No Symptoms Cardiac: No Symptoms Abdominal/Gastrointestinal: No Symptoms Genitourinary Symptoms: No Symptoms Musculoskeletal: No Symptoms Skin: Induration, Rash, Skin Lesions Neurological: No Symptoms Endocrine: No Symptoms Hematologic/Lymphatic: No Symptoms Immunological/Allergic: No Symptoms - Past Medical History Pertinent Past Medical History: Yes Neurological History: Migraines, TIA, Other ENT History: No Pertinent History Cardiac History: High Cholesterol, Hypertension, Other Respiratory History: No Pertinent History Endocrine Medical History: Diabetes Type II Musculoskeletal History: No Pertinent History, Degenerative Disk Disease GI Medical History: Crohns Disease, Irritable Bowel History: No Pertinent History Psycho-Social History: No Pertinent History Female Reproductive Disorders: No Pertinent History Other Medical History: NEUROPATHY - Past Surgical History Past Surgical History: Yes Neuro Surgical History: No Pertinent History Cardiac: Pacemaker Respiratory: No Pertinent History Gastrointestinal: Appendectomy, Cholecystectomy Genitourinary: No Pertinent History Musculoskeletal: Joint Replacement, Orthopedic Surgery Female Surgical History: No Pertinent History Other Surgical History: BARIATRIC SURG,CARPAL TUNNEL - Social History Smoking Status: Never smoker Exposure to second hand smoke: No Drug Use: none Patient Lives Alone: No - Nursing Vital Signs Nursing Vital Signs: Initial Vital Signs Temperature 97.1 F 05/27/22 20:30 Pulse Rate 66 05/27/22 20:30 Respiratory Rate 18 05/27/22 20:30 Blood Pressure 122/51 05/27/22 20:30 O2 Sat by Pulse Oximetry 96 05/27/22 20:30 Pain Scale Pain Intensity 6 - Physical Exam General Appearance: no apparent distress, alert Eye Exam: PERRL/EOMI Ears, Nose, Throat Exam: normal ENT inspection Neck Exam: normal inspection, full range of motion Respiratory Exam: normal breath sounds, lungs clear Cardiovascular Exam: regular rate/rhythm, normal heart sounds Gastrointestinal/Abdomen Exam: soft, No tenderness Back Exam: normal inspection Extremity Exam: normal inspection Neurologic Exam: alert, oriented x 3, cooperative Skin Exam: rash (Bilateral lower extremity stasis discoloration with vesicles, dry exposed skin with some discharge.) SpO2 Interpretation: normal SpO2: 96 O2 Delivery: Room Air Ordered Tests: Active Orders 24 hr Category Date Time Status IV Insertion STAT Care 05/27/22 20:38 Active BLOOD CULTURE Stat Lab 05/27/22 21:20 Received BNP [NT PRO BNP] Stat Lab 05/27/22 21:20 Completed CBC W DIFF Stat Lab 05/27/22 20:38 Completed CMP Stat Lab 05/27/22 21:20 Completed Lactic Acid Stat Lab 05/27/22 21:30 Completed PROCALCITONIN Stat Lab 05/27/22 21:20 Received TROPONIN Q3H Lab 05/27/22 21:20 Completed TROPONIN Q3H Lab 05/27/22 23:45 Ordered TROPONIN Q3H Lab 05/28/22 02:45 Ordered TROPONIN Q3H Lab 05/28/22 05:45 Ordered UA W/RFX CULTURE Stat Lab 05/27/22 Ordered Medication Summary Generic Name Dose Route Start Last Admin Trade Name Freq PRN Reason Stop Dose Admin Clindamycin HCl/Dextrose 600 mg in 50 mls @ 100 mls/hr 05/27/22 22:08 Clindamycin-D5w 600 Mg/50 Ml IV 05/27/22 22:37 STAT STA Piperacillin Sod/Tazobactam 100 mls @ 200 mls/hr 05/27/22 22:08 Sod 3.375 gm/ Sodium Chloride IV 05/27/22 22:37 STAT ONE Lab/Rad Data: Laboratory Result Diagrams 05/27/22 20:38 05/27/22 21:20 Laboratory Results 05/27/22 05/27/22 05/27/22 Range/Units 21:30 21:20 21:20 WBC (4.0-10.5) x10^3/uL RBC (4.1-5.4) x10^6/uL Hgb (12.0-16.0) g/dL Hct (35-47) % MCV (78-100) fL MCH (26-32) pg MCHC (32-36) g/dL RDW (11.5-14.0) % Plt Count (150-450) x10^3/uL MPV (7.5-11.0) fL Gran % (36.0-66.0) % Immature Gran % (Auto) (0.00-0.4) % Nucleat RBC Rel Count (0.00-0.1) % Eos # (Auto) (0-0.5) x10^3/uL Immature Gran # (Auto) (0.00-0.03) x10^3u/L Absolute Lymphs (auto) (1.0-4.6) x10^3/uL Absolute Monos (auto) (0.0-1.3) x10^3/uL Absolute Nucleated RBC (0.00-0.01) x10^3u/L Lymphocytes % (24.0-44.0) % Monocytes % (0.0-12.0) % Eosinophils % (0.00-5.0) % Basophils % (0.0-0.4) % Absolute Granulocytes (1.4-6.9) x10^3/uL Basophils # (0-0.4) x10^3/uL Sodium (137-145) mmol/L Potassium (3.5-5.1) mmol/L Chloride (98-107) mmol/L Carbon Dioxide (22-30) mmol/L Anion Gap (5-15) MEQ/L BUN (7-17) mg/dL Creatinine (0.52-1.04) mg/dL Estimated GFR ML/MIN Glucose (74-106) mg/dL Lactic Acid 1.3 (0.4-2.0) Calcium (8.4-10.2) mg/dL Total Bilirubin (0.2-1.3) mg/dL AST (14-36) U/L ALT (0-35) U/L Alkaline Phosphatase (38-126) U/L Troponin I < 0.012 (0.000-0.034) ng/mL NT-Pro-B Natriuret Pep 545 (0-900) pg/mL Serum Total Protein (6.3-8.2) g/dL Albumin (3.5-5.0) g/dL 05/27/22 05/27/22 Range/Units 21:20 20:38 WBC 6.4 (4.0-10.5) x10^3/uL RBC 4.03 L (4.1-5.4) x10^6/uL Hgb 10.5 L (12.0-16.0) g/dL Hct 34.9 L (35-47) % MCV 86.6 (78-100) fL MCH 26.1 (26-32) pg MCHC 30.1 L (32-36) g/dL RDW 20.3 H (11.5-14.0) % Plt Count 248 (150-450) x10^3/uL MPV 9.6 (7.5-11.0) fL Gran % 57.7 (36.0-66.0) % Immature Gran % (Auto) 0.3 (0.00-0.4) % Nucleat RBC Rel Count 0.0 (0.00-0.1) % Eos # (Auto) 0.13 (0-0.5) x10^3/uL Immature Gran # (Auto) 0.02 (0.00-0.03) x10^3u/L Absolute Lymphs (auto) 1.80 (1.0-4.6) x10^3/uL Absolute Monos (auto) 0.71 (0.0-1.3) x10^3/uL Absolute Nucleated RBC 0.00 (0.00-0.01) x10^3u/L Lymphocytes % 28.3 (24.0-44.0) % Monocytes % 11.2 (0.0-12.0) % Eosinophils % 2.0 (0.00-5.0) % Basophils % 0.5 (0.0-0.4) % Absolute Granulocytes 3.66 (1.4-6.9) x10^3/uL Basophils # 0.03 (0-0.4) x10^3/uL Sodium 139 (137-145) mmol/L Potassium 3.6 (3.5-5.1) mmol/L Chloride 104 (98-107) mmol/L Carbon Dioxide 29 (22-30) mmol/L Anion Gap 9.7 (5-15) MEQ/L BUN 27 H (7-17) mg/dL Creatinine 0.99 (0.52-1.04) mg/dL Estimated GFR 58.3 ML/MIN Glucose 99 (74-106) mg/dL Lactic Acid (0.4-2.0) Calcium 8.3 L (8.4-10.2) mg/dL Total Bilirubin 0.90 (0.2-1.3) mg/dL AST 27 (14-36) U/L ALT 19 (0-35) U/L Alkaline Phosphatase 122 (38-126) U/L Troponin I (0.000-0.034) ng/mL NT-Pro-B Natriuret Pep (0-900) pg/mL Serum Total Protein 6.9 (6.3-8.2) g/dL Albumin 3.6 (3.5-5.0) g/dL - Progress Progress: unchanged Progress Note: 05/27/22 22:15 76 years old is evaluated for bilateral lower extremity blisters, wounds with some discharge. Clinically she seems to be having infection/cellulitis. White count is normal, lactate is normal. Grossly unremarkable chemistries. Started on Zosyn and clindamycin. Patient is anticoagulated on Xarelto. No need to do DVT scan. Discussed with and patient is being admitted. 05/27/22 22:16 Discussed with : Nico Will see patient in: hospital (observation) Counseled pt/family regarding: lab results, diagnosis, rad results - Departure Departure Disposition: Observation Clinical Impression: Bilateral lower leg cellulitis Condition: Stable Critical Care Time: No Referrals: ENRIQUETA CONROY [NON-STAFF PHY W/O PRIVILEGES] - Follow up/PCP as directed
[2022-05-27 21:36] LABS: Absolute Neutrophil Ct (ANC) 3.66 x10^3/uL (1.4-6.9); Basophil (Absolute #) 0.03 x10^3/uL (0-0.4); Eosinophil (Absolute #) 0.13 x10^3/uL (0-0.5); Hematocrit 34.9 % (35-47); Hemoglobin 10.5 g/dL (12.0-16.0); Lymphocytes % 28.3 % (24.0-44.0); Mean Cell Volume 86.6 fL (78-100); Mean Corpuscular Hemoglobin 26.1 pg (26-32); Mean Corpuscular Hgb Concent. 30.1 g/dL (32-36); Mean Platelet Volume 9.6 fL (7.5-11.0); Monocyte (Absolute #) 0.71 x10^3/uL (0.0-1.3); Monocytes % 11.2 % (0.0-12.0); Neutrophil % 57.7 % (36.0-66.0); Platelet Count 248 x10^3/uL (150-450); Red Blood Count 4.03 x10^6/uL (4.1-5.4); Red Cell Distribution Width 20.3 % (11.5-14.0); White Blood Count 6.4 x10^3/uL (4.0-10.5)
[2022-05-27 21:57] LABS: ALBUMIN 3.6 g/dL (3.5-5.0); ANION GAP 9.7 MEQ/L (5-15); BILIRUBIN,TOTAL 0.9 mg/dL (0.2-1.3); Calcium 8.3 mg/dL (8.4-10.2); Creatinine 1 0.99 mg/dL (0.52-1.04); EST GLOMERULAR FILTRATION RATE 58.3 ML/MIN; Potassium 3.6 mmol/L (3.5-5.1); Total Protein 6.9 g/dL (6.3-8.2)
[2022-05-27] MEDS ORDERED: PIPERACILLIN/TAZOBACTAM 3.375 GM in Sodium Chloride 100ML MINI-BAG PLUS 100 ML IV ONE (22:08)
[2022-05-27] MEDS ORDERED: CLINDAMYCIN-D5W 600 MG/50 ML*** 600 MG/50 ML BAG IV STA (22:08)
[2022-05-27] MEDS ORDERED: Zofran 4 MG/2 ML VIAL IV ONE (22:15)
[2022-05-27] MEDS ORDERED: MORPHINE SULFATE 2 MG INJ IV ONE (22:15)
[2022-05-27 22:55] LABS: INFLUENZA A NEGATIVE (NEGATIVE); INFLUENZA B NEGATIVE (NEGATIVE); RESPIRATORY SYNCTIAL VIRUS NEGATIVE (Negative); SARS-CoV-2 Xpert Express NEGATIVE (NEGATIVE)
[2022-05-27] MEDS ORDERED: Zofran 4 MG/2 ML VIAL ONE (23:20)
[2022-05-27] MEDS ORDERED: MORPHINE SULFATE 2 MG INJ ONE (23:20)
[2022-05-27] MEDS ORDERED: Sodium Chloride 100ML MINI-BAG PLUS 100 ML IV ONE (23:21)
[2022-05-27] MEDS ORDERED: CLINDAMYCIN-D5W 600 MG/50 ML*** 600 MG/50 ML BAG IV ONE (23:21)
[2022-05-27] MEDS ORDERED: PIPERACILLIN/TAZOBACTAM IV ONE (23:21)
[2022-05-28] MEDS ORDERED: TYLENOL 325 MG PO PRN (01:31)
[2022-05-28] MEDS ORDERED: Zofran 4 MG/2 ML VIAL IV PRN (01:31)
[2022-05-28] MEDS ORDERED: DUONEB 0.5-3 MG/3 ml Neb IH PRN (01:31)
[2022-05-28] MEDS: PIPERACILLIN/TAZOBACTAM 3.375 GM in Sodium Chloride 100ML MINI-BAG PLUS 100 ML IV SCH ×5 (03:06→23:52)
[2022-05-28] MEDS: ClINDAMYCIN Phosphate IVPB 300 MG/50 ML IVPB IV SCH ×4 (03:07→17:58)
[2022-05-28 06:12] LABS: Absolute Neutrophil Ct (ANC) 2.65 x10^3/uL (1.4-6.9); Basophil (Absolute #) 0.03 x10^3/uL (0-0.4); Eosinophil % 2.1 % (0.00-5.0); Eosinophil (Absolute #) 0.11 x10^3/uL (0-0.5); Hematocrit 31.5 % (35-47); Hemoglobin 9.5 g/dL (12.0-16.0); Lymphocyte (Absolute #) 1.95 x10^3/uL (1.0-4.6); Lymphocytes % 37.1 % (24.0-44.0); Mean Cell Volume 85.8 fL (78-100); Mean Corpuscular Hemoglobin 25.9 pg (26-32); Mean Corpuscular Hgb Concent. 30.2 g/dL (32-36); Mean Platelet Volume 9.7 fL (7.5-11.0); Monocytes % 9.5 % (0.0-12.0); Neutrophil % 50.5 % (36.0-66.0); Platelet Count 227 x10^3/uL (150-450); Red Blood Count 3.67 x10^6/uL (4.1-5.4); White Blood Count 5.3 x10^3/uL (4.0-10.5)
[2022-05-28 06:47] LABS: ALBUMIN 3.1 g/dL (3.5-5.0); ANION GAP 9.2 MEQ/L (5-15); BILIRUBIN,TOTAL 0.8 mg/dL (0.2-1.3); Creatinine 1 1.08 mg/dL (0.52-1.04); EST GLOMERULAR FILTRATION RATE 52.7 ML/MIN; Potassium 3.6 mmol/L (3.5-5.1); Total Protein 5.9 g/dL (6.3-8.2)
[2022-05-28] MEDS ORDERED: Nitrostat 0.4 MG Tablet SL PRN (09:00)
[2022-05-28] MEDS ORDERED: MEDICATION INTERVENTION MC SCH (09:45)
[2022-05-28] MEDS: Requip 0.5 MG PO SCH ×3 (09:46→22:28)
[2022-05-28] MEDS: Mirapex 0.5 MG Tablet PO SCH ×3 (09:47→22:28)
[2022-05-28] MEDS: Cymbalta 30 MG Capsule PO SCH (09:47)
[2022-05-28] MEDS: Lasix 40 MG PO SCH ×2 (09:48→11:42)
[2022-05-28] MEDS: ELAVIL 10 MG PO SCH (09:48)
[2022-05-28] MEDS: PROTONIX 40 MG IV IV SCH (09:49)
[2022-05-28] MEDS: Ditropan 5 MG PO SCH ×2 (09:49→22:28)
[2022-05-28] MEDS: Calcium 500MG W/Vit D Tablet PO SCH (09:51)
[2022-05-28] MEDS: NYSTOP POWDER 15 GM TP SCH ×3 (09:56→22:29)
[2022-05-28] MEDS: SYNTHROID 25 MCG PO SCH (09:56)
[2022-05-28] MEDS: ZYLOPRIM 100 MG PO SCH (09:57)
[2022-05-28] MEDS: VENELEX OINTMENT TP SCH (09:58)
[2022-05-28] MEDS: VITA-BEE WITH C PO SCH (09:59)
[2022-05-28] MEDS ORDERED: NON-FORMULARY ITEM (Azelastine Hcl [Azelastine Hcl] 6 ML Drops) OP SCH (10:00)
[2022-05-28] MEDS ORDERED: NON-FORMULARY ITEM (Vitamin B Complex [Vitamin B Complex] 1 EACH Tablet) PO SCH (10:00)
[2022-05-28] MEDS: Lantus Insulin SQ SCH (10:00)
[2022-05-28] MEDS ORDERED: NON-FORMULARY ITEM (Insulin Detemir [Levemir] 100 UNIT/ML Vial) SQ SCH (10:00)
[2022-05-28] MEDS ORDERED: NON-FORMULARY ITEM (Pramipexole Di-Hcl [Pramipexole Dihydrochloride] 1 MG Tablet) PO SCH (10:00)
[2022-05-28] MEDS ORDERED: NON-FORMULARY ITEM (Calcium Carb, Citrate/Vit D3 [Calcium + D3 Er Tablet] 1 EACH Tablet.Er PO SCH (10:00)
[2022-05-28] MEDS ORDERED: NON-FORMULARY ITEM (Levothyroxine Sodium [Levothyroxine] 25 MCG Capsule) PO SCH (10:00)
[2022-05-28] MEDS ORDERED: ECOTRIN 81 MG PO SCH (10:00)
[2022-05-28] MEDS ORDERED: Santyl OINTMENT TOP SCH (10:00)
[2022-05-28] MEDS ORDERED: NON-FORMULARY ITEM (Duloxetine Hcl [Cymbalta] 60 MG Capsule.Dr) PO SCH (10:00)
[2022-05-28] MEDS: Lopressor 25MG Tab PO SCH ×2 (10:01→22:34)
[2022-05-28] MEDS: HUMALOG SQ PRN (10:02)
--- NOTE | 2022-05-28 11:00 | PCM.HP ---
History of Present Illness - Chief Complaint Chief Complaint: both lower leg swelling and ulcers History of Present Illness: is a 76 year old female.with history of paroxysmal atrial fibrillation on Xarelto, hypertension, hyperlipidemia, diabetes mellitus, bilateral lower extremity chronic venous stasis needing Unna boot/wrapping regularly, removed her dressing yesterday and put some gauze on it because there was oozing and blisters with multiple scales. This evening she has worsening of ulceration on the skin, vesicle and rash. Denies any chest pain palpitations or shortness of breath. Denies fever or chills. Timing/Duration: week(s), gradual onset, worse Quality: painful Severity: mild, moderate Location: extremities Possible Causes: no cause identified Associated Symptoms: blisters, change in skin texture, edema, rash, swelling/mass/lumps - Review of Systems Constitutional: No Fever, No Chills Eyes: No Symptoms Ears, Nose, & Throat: No Symptoms Respiratory: No Cough, No Short Of Breath Cardiac: No Chest Pain, No Edema, No Syncope Abdominal/Gastrointestinal: No Abdominal Pain, No Nausea, No Vomiting, No Diarrhea Genitourinary Symptoms: No Dysuria Musculoskeletal: No Back Pain, No Neck Pain Skin: Cellulitis (both lower extrimities), No Rash Neurological: No Dizziness, No Focal Weakness, No Sensory Changes Psychological: No Symptoms Endocrine: No Symptoms Hematologic/Lymphatic: No Symptoms Immunological/Allergic: No Symptoms Medications & Allergies Home Medications: Home Medication List Allopurinol 100 mg [Zyloprim 100 mg] 100 mg PO DAILY 04/17/22 [History Confirmed 05/27/22] Amitriptyline HCl 10 mg [Elavil 10 mg] 10 mg PO DAILY 04/17/22 [History Confirmed 05/27/22] Aspirin EC 81 mg [Ecotrin 81 mg] 81 mg PO DAILY 04/17/22 [History Confirmed 05/27/22] Atorvastatin Calcium 80 mg PO QHS 04/17/22 [History Confirmed 05/27/22] Azelastine HCl 1 drop OP DAILY 04/17/22 [History Confirmed 05/27/22] Balsalazide Disodium 750 mg PO QHS 04/17/22 [History Confirmed 05/27/22] Calcium Carb, Citrate/Vit D3 [Calcium + D3 ER Tablet] 1 tab PO DAILY 04/17/22 [History Confirmed 05/27/22] Ciclopirox/Skin Cleanser No.28 [Ciclodan 0.77% Cream Kit] 1 applic TOP QHS 04/17/22 [History Confirmed 05/27/22] Collagenase Oint [Santyl OINTMENT] 1 applic TOP DAILY 04/17/22 [History Confirmed 05/27/22] Divalproex Sodium [Depakote] 250 mg PO DAILY 04/17/22 [History Confirmed 05/27/22] Divalproex Sodium [Depakote] 500 mg PO EVENING MEAL 04/17/22 [History Confirmed 05/27/22] Duloxetine HCl 30 mg PO DAILY 04/17/22 [History Confirmed 05/27/22] Duloxetine HCl [Cymbalta] 60 mg PO DAILY 04/17/22 [History Confirmed 05/27/22] Furosemide 80 mg PO DAILY 04/17/22 [History Confirmed 05/27/22] Furosemide 40 mg [Lasix 40 MG] 40 mg PO LUNCH 04/17/22 [History Confirmed 05/27/22] Insulin Lispro [Admelog Solostar] 6 unit SQ AC 04/17/22 [History Confirmed 05/27/22] Levothyroxine Sodium [Levothyroxine] 25 mcg PO DAILY 04/17/22 [History Confirmed 05/27/22] Lipase/Protease/Amylase [Elvis Portillo 24,000 Unit Capsule] 24,000 units PO AC 04/17/22 [History Confirmed 05/27/22] Metoprolol Tartrate 25 mg PO BID 04/17/22 [History Confirmed 05/27/22] Nitroglycerin 0.4 mg SL UD 04/17/22 [History Confirmed 05/27/22] Oxybutynin Chloride 5 mg PO BID 04/17/22 [History Confirmed 05/27/22] Pramipexole Di-HCl [Pramipexole Dihydrochloride] 1 mg PO TID 04/17/22 [History Confirmed 05/27/22] Rivaroxaban [Xarelto] 15 mg PO EVENING MEAL 04/17/22 [History Confirmed 05/27/22] Vitamin B Complex 1 tab PO DAILY 04/17/22 [History Confirmed 05/27/22] Melatonin 10 mg PO QHS 04/18/22 [History Confirmed 05/27/22] Triamcinolone 0.1% Lotion [Kenalog 0.1% Lotion] 1 applic TOP QHS 04/18/22 [History Confirmed 05/27/22] Insulin Detemir [Levemir] 30 unit SQ QAM 05/03/22 [History Confirmed 05/27/22] Nystatin Powder 15 gm [Nystop Powder 15 gm] 1 gm TP TID 05/03/22 [History Confirmed 05/27/22] Loperamide HCl 2 mg [Imodium 2 mg] 4 mg PO PRN PRN cap 05/19/22 [Rx Confirmed 05/27/22] Ropinirole HCl 0.5 mg [Requip 0.5 MG] 0.5 mg PO TID 05/28/22 [History Confirmed 05/28/22] Allergies/Adverse Reactions: Allergies Allergy/AdvReac Type Severity Reaction Status Date / Time No Known Drug Allergies Allergy Verified 05/27/22 20:42 - Past Medical History Past Medical History: Yes Neurological History: Migraines, TIA, Other ENT History: No Pertinent History Cardiac History: High Cholesterol, Hypertension, Other Respiratory History: No Pertinent History Endocrine Medical History: Diabetes Type II Musculoskelatal History: No Pertinent History, Degenerative Disk Disease GI Medical History: Crohns Disease, Irritable Bowel History: No Pertinent History Pyscho-Social History: No Pertinent History Reproductive Disorders: No Pertinent History Comment: NEUROPATHY - Past Surgical History Past Surgical History: Yes Neuro Surgical History: No Pertinent History Cardiac History: Pacemaker Respiratory Surgery: No Pertinent History GI Surgical History: Appendectomy, Cholecystectomy Genitourinary Surgical Hx: No Pertinent History Musculskeletal Surgical Hx: Joint Replacement, Orthopedic Surgery Female Surgical History: No Pertinent History Other Surgical History: BARIATRIC SURG,CARPAL TUNNEL - Social History Smoking Status: Never smoker Exposure to second hand smoke: No Alcohol: None Drug Use: none - Physical Exam Vital Signs: Vital Signs - 24 hr Temp Pulse Resp BP Pulse Ox 05/28/22 08:00 97.7 F 77 17 82/39 92 L 05/28/22 01:40 97.5 F 69 20 111/55 99 05/28/22 00:00 60 18 108/67 96 05/27/22 23:00 66 18 124/54 95 05/27/22 22:16 96 05/27/22 22:00 62 20 143/60 97 05/27/22 21:34 65 18 132/51 95 05/27/22 20:30 97.1 F 66 18 122/51 96 General Appearance: no apparent distress, alert Neurologic Exam: alert, oriented x 3, cooperative, normal mood/affect, nml cerebellar function, nml station & gait, sensation nml, No motor deficits Eye Exam: PERRL/EOMI, eyes nml inspection Ears, Nose, Throat Exam: normal ENT inspection, TMs normal, pharynx normal, moist mucous membranes Neck Exam: normal inspection, non-tender, supple, full range of motion Respiratory Exam: normal breath sounds, lungs clear, No respiratory distress Cardiovascular Exam: regular rate/rhythm, normal heart sounds, normal peripheral pulses Gastrointestinal/Abdomen Exam: soft, normal bowel sounds, No tenderness, No mass Back Exam: normal inspection, normal range of motion, No CVA tenderness, No vertebral tenderness Extremity Exam: normal inspection, normal range of motion, pelvis stable Skin Exam: normal color, warm, dry, other (Wound/Incision Assessment Anterior/Posterior Calf Wound Assessment Shift Assessment Wound Type cellulitis Drainage Amount Large Drainage Description Serosangui), No rash Wound Assessment: Skin/Wound Assessment Wound/Incision Assessment Start: 05/28/22 01:35 Text: Status: Active Freq: Q6H Protocol: Document 05/28/22 07:50 RB (Rec: 05/28/22 08:03 RB [id number]) Wound/Incision Assessment Anterior/Posterior Calf Wound Assessment Shift Assessment Wound Type cellulitis Drainage Amount Large Drainage Description Serosanguineous Drainage Odor None/Absent Primary Dressing Non-Adherent Gauze Pads Secondary Dressing Gauze Roll/Wrap Comment abdominal ABD pad each calf. Large amount of fluid vesicles right calf. Wound Photo Photo Taken Yes Date: 05/28/22 Time: 02:30 Lymphatic Exam: No adenopathy Results - Labs Lab/Micro Results: Lab Results-Last 24 Hours 05/27/22 05/27/22 05/27/22 Range/Units 00:09 20:38 21:20 WBC 6.4 (4.0-10.5) x10^3/uL RBC 4.03 L (4.1-5.4) x10^6/uL Hgb 10.5 L (12.0-16.0) g/dL Hct 34.9 L (35-47) % MCV 86.6 (78-100) fL MCH 26.1 (26-32) pg MCHC 30.1 L (32-36) g/dL RDW 20.3 H (11.5-14.0) % Plt Count 248 (150-450) x10^3/uL MPV 9.6 (7.5-11.0) fL Gran % 57.7 (36.0-66.0) % Immature Gran % (Auto) 0.3 (0.00-0.4) % Nucleat RBC Rel Count 0.0 (0.00-0.1) % Eos # (Auto) 0.13 (0-0.5) x10^3/uL Immature Gran # (Auto) 0.02 (0.00-0.03) x10^3u/L Absolute Lymphs (auto) 1.80 (1.0-4.6) x10^3/uL Absolute Monos (auto) 0.71 (0.0-1.3) x10^3/uL Absolute Nucleated RBC 0.00 (0.00-0.01) x10^3u/L Lymphocytes % 28.3 (24.0-44.0) % Monocytes % 11.2 (0.0-12.0) % Eosinophils % 2.0 (0.00-5.0) % Basophils % 0.5 (0.0-0.4) % Absolute Granulocytes 3.66 (1.4-6.9) x10^3/uL Basophils # 0.03 (0-0.4) x10^3/uL Sodium 139 (137-145) mmol/L Potassium 3.6 (3.5-5.1) mmol/L Chloride 104 (98-107) mmol/L Carbon Dioxide 29 (22-30) mmol/L Anion Gap 9.7 (5-15) MEQ/L BUN 27 H (7-17) mg/dL Creatinine 0.99 (0.52-1.04) mg/dL Estimated GFR 58.3 ML/MIN Glucose 99 (74-106) mg/dL POC Glucometer (74 to 106) mg/dL Lactic Acid (0.4-2.0) Calcium 8.3 L (8.4-10.2) mg/dL Total Bilirubin 0.90 (0.2-1.3) mg/dL AST 27 (14-36) U/L ALT 19 (0-35) U/L Alkaline Phosphatase 122 (38-126) U/L Troponin I < 0.012 (0.000-0.034) ng/mL NT-Pro-B Natriuret Pep (0-900) pg/mL Serum Total Protein 6.9 (6.3-8.2) g/dL Albumin 3.6 (3.5-5.0) g/dL Procalcitonin (0.030-0.080) ng/mL Influenza Type A Ag (NEGATIVE) Influenza Type B Ag (NEGATIVE) RSV (PCR) (Negative) SARS-CoV-2 (PCR) (NEGATIVE) 05/27/22 05/27/22 05/27/22 Range/Units 21:20 21:20 21:20 WBC (4.0-10.5) x10^3/uL RBC (4.1-5.4) x10^6/uL Hgb (12.0-16.0) g/dL Hct (35-47) % MCV (78-100) fL MCH (26-32) pg MCHC (32-36) g/dL RDW (11.5-14.0) % Plt Count (150-450) x10^3/uL MPV (7.5-11.0) fL Gran % (36.0-66.0) % Immature Gran % (Auto) (0.00-0.4) % Nucleat RBC Rel Count (0.00-0.1) % Eos # (Auto) (0-0.5) x10^3/uL Immature Gran # (Auto) (0.00-0.03) x10^3u/L Absolute Lymphs (auto) (1.0-4.6) x10^3/uL Absolute Monos (auto) (0.0-1.3) x10^3/uL Absolute Nucleated RBC (0.00-0.01) x10^3u/L Lymphocytes % (24.0-44.0) % Monocytes % (0.0-12.0) % Eosinophils % (0.00-5.0) % Basophils % (0.0-0.4) % Absolute Granulocytes (1.4-6.9) x10^3/uL Basophils # (0-0.4) x10^3/uL Sodium (137-145) mmol/L Potassium (3.5-5.1) mmol/L Chloride (98-107) mmol/L Carbon Dioxide (22-30) mmol/L Anion Gap (5-15) MEQ/L BUN (7-17) mg/dL Creatinine (0.52-1.04) mg/dL Estimated GFR ML/MIN Glucose (74-106) mg/dL POC Glucometer (74 to 106) mg/dL Lactic Acid (0.4-2.0) Calcium (8.4-10.2) mg/dL Total Bilirubin (0.2-1.3) mg/dL AST (14-36) U/L ALT (0-35) U/L Alkaline Phosphatase (38-126) U/L Troponin I < 0.012 (0.000-0.034) ng/mL NT-Pro-B Natriuret Pep 545 (0-900) pg/mL Serum Total Protein (6.3-8.2) g/dL Albumin (3.5-5.0) g/dL Procalcitonin 0.037 (0.030-0.080) ng/mL Influenza Type A Ag (NEGATIVE) Influenza Type B Ag (NEGATIVE) RSV (PCR) (Negative) SARS-CoV-2 (PCR) (NEGATIVE) 05/27/22 05/27/22 05/28/22 Range/Units 21:30 22:17 06:04 WBC (4.0-10.5) x10^3/uL RBC (4.1-5.4) x10^6/uL Hgb (12.0-16.0) g/dL Hct (35-47) % MCV (78-100) fL MCH (26-32) pg MCHC (32-36) g/dL RDW (11.5-14.0) % Plt Count (150-450) x10^3/uL MPV (7.5-11.0) fL Gran % (36.0-66.0) % Immature Gran % (Auto) (0.00-0.4) % Nucleat RBC Rel Count (0.00-0.1) % Eos # (Auto) (0-0.5) x10^3/uL Immature Gran # (Auto) (0.00-0.03) x10^3u/L Absolute Lymphs (auto) (1.0-4.6) x10^3/uL Absolute Monos (auto) (0.0-1.3) x10^3/uL Absolute Nucleated RBC (0.00-0.01) x10^3u/L Lymphocytes % (24.0-44.0) % Monocytes % (0.0-12.0) % Eosinophils % (0.00-5.0) % Basophils % (0.0-0.4) % Absolute Granulocytes (1.4-6.9) x10^3/uL Basophils # (0-0.4) x10^3/uL Sodium (137-145) mmol/L Potassium (3.5-5.1) mmol/L Chloride (98-107) mmol/L Carbon Dioxide (22-30) mmol/L Anion Gap (5-15) MEQ/L BUN (7-17) mg/dL Creatinine (0.52-1.04) mg/dL Estimated GFR ML/MIN Glucose (74-106) mg/dL POC Glucometer (74 to 106) mg/dL Lactic Acid 1.3 (0.4-2.0) Calcium (8.4-10.2) mg/dL Total Bilirubin (0.2-1.3) mg/dL AST (14-36) U/L ALT (0-35) U/L Alkaline Phosphatase (38-126) U/L Troponin I < 0.012 (0.000-0.034) ng/mL NT-Pro-B Natriuret Pep (0-900) pg/mL Serum Total Protein (6.3-8.2) g/dL Albumin (3.5-5.0) g/dL Procalcitonin (0.030-0.080) ng/mL Influenza Type A Ag NEGATIVE (NEGATIVE) Influenza Type B Ag NEGATIVE (NEGATIVE) RSV (PCR) NEGATIVE (Negative) SARS-CoV-2 (PCR) NEGATIVE (NEGATIVE) 05/28/22 05/28/22 05/28/22 Range/Units 06:04 06:04 07:00 WBC 5.3 (4.0-10.5) x10^3/uL RBC 3.67 L (4.1-5.4) x10^6/uL Hgb 9.5 L (12.0-16.0) g/dL Hct 31.5 L (35-47) % MCV 85.8 (78-100) fL MCH 25.9 L (26-32) pg MCHC 30.2 L (32-36) g/dL RDW 20.0 H (11.5-14.0) % Plt Count 227 (150-450) x10^3/uL MPV 9.7 (7.5-11.0) fL Gran % 50.5 (36.0-66.0) % Immature Gran % (Auto) 0.2 (0.00-0.4) % Nucleat RBC Rel Count 0.0 (0.00-0.1) % Eos # (Auto) 0.11 (0-0.5) x10^3/uL Immature Gran # (Auto) 0.01 (0.00-0.03) x10^3u/L Absolute Lymphs (auto) 1.95 (1.0-4.6) x10^3/uL Absolute Monos (auto) 0.50 (0.0-1.3) x10^3/uL Absolute Nucleated RBC 0.00 (0.00-0.01) x10^3u/L Lymphocytes % 37.1 (24.0-44.0) % Monocytes % 9.5 (0.0-12.0) % Eosinophils % 2.1 (0.00-5.0) % Basophils % 0.6 (0.0-0.4) % Absolute Granulocytes 2.65 (1.4-6.9) x10^3/uL Basophils # 0.03 (0-0.4) x10^3/uL Sodium 138 (137-145) mmol/L Potassium 3.6 (3.5-5.1) mmol/L Chloride 102 (98-107) mmol/L Carbon Dioxide 30 (22-30) mmol/L Anion Gap 9.2 (5-15) MEQ/L BUN 24 H (7-17) mg/dL Creatinine 1.08 H (0.52-1.04) mg/dL Estimated GFR 52.7 ML/MIN Glucose 135 H (74-106) mg/dL POC Glucometer 163 H (74 to 106) mg/dL Lactic Acid (0.4-2.0) Calcium 8.0 L (8.4-10.2) mg/dL Total Bilirubin 0.80 (0.2-1.3) mg/dL AST 23 (14-36) U/L ALT 16 (0-35) U/L Alkaline Phosphatase 109 (38-126) U/L Troponin I (0.000-0.034) ng/mL NT-Pro-B Natriuret Pep (0-900) pg/mL Serum Total Protein 5.9 L (6.3-8.2) g/dL Albumin 3.1 L (3.5-5.0) g/dL Procalcitonin (0.030-0.080) ng/mL Influenza Type A Ag (NEGATIVE) Influenza Type B Ag (NEGATIVE) RSV (PCR) (Negative) SARS-CoV-2 (PCR) (NEGATIVE) Accuchecks Date 05/28/22 Assessment/Plan (1) Bilateral lower leg cellulitis Current Visit: Yes Status: Acute Assessment & Plan: Chief Complaint Diagnosis Bilateral lower extremity cellulitis Allergies Allergy/AdvReac Type Severity Reaction Status Date / Time No Known Drug Allergies Allergy Verified 05/27/22 20:42 Vital Signs (Last 24 hours) Temp Pulse Resp BP Pulse Ox 05/28/22 08:00 97.7 F 77 17 82/39 92 L 05/28/22 01:40 97.5 F 69 20 111/55 99 05/28/22 00:00 60 18 108/67 96 05/27/22 23:00 66 18 124/54 95 05/27/22 22:16 96 05/27/22 22:00 62 20 143/60 97 05/27/22 21:34 65 18 132/51 95 05/27/22 20:30 97.1 F 66 18 122/51 96 Home Medications Medication Instructions Recorded Confirmed Last Taken Type Ropinirole HCl 0.5 mg [Requip 0.5 mg PO TID 05/28/22 05/28/22 Unknown History 0.5 MG] Current Medications Generic Name Dose Route Start Last Admin Trade Name Freq PRN Reason Stop Dose Admin Acetaminophen 650 mg 05/28/22 01:31 Acetaminophen 325 Mg Tablet PO 06/27/22 01:30 Q4H PRN PRN PAIN AND/OR FEVER Allopurinol 100 mg 05/28/22 10:00 05/28/22 09:57 Allopurinol 100 Mg Tablet PO 06/27/22 09:59 100 mg DAILY CORNELIA Administration Amitriptyline HCl 10 mg 05/28/22 10:00 05/28/22 09:48 Amitriptyline Hcl 10 Mg Tablet PO 06/27/22 09:59 10 mg DAILY CORNELIA Administration Lipase/Protease/Amylase 5 each 05/28/22 11:30 Lipase/Protease/Amylase 1 Each Capsule.Dr PO 06/27/22 11:29 AC CORNELIA Balsam Mary/Mina Oil 0 gm 05/28/22 10:00 05/28/22 09:58 Balsam Mary/Mina Oil 30 Gm Oint...G. TP 06/27/22 09:59 1 gm DAILY CORNELIA Administration Calcium Carbonate 1 tab 05/28/22 10:00 05/28/22 09:51 Calcium Carbonate 500 Mg/Vitamin D 1 Tab Tablet PO 06/27/22 09:59 1 tab DAILY CORNELIA Administration Ciclopirox Olamine 0 gm 05/28/22 22:00 Ciclopirox Olamine 15 Gm Tube Cream TOP 06/27/22 21:59 HS CORNELIA Divalproex Sodium 250 mg 05/28/22 10:00 05/28/22 09:56 Divalproex Sodium 250 Mg Tablet Delayed Release PO 06/27/22 09:59 250 mg DAILY CORNELIA Administration Divalproex Sodium 500 mg 05/28/22 18:00 Divalproex Sodium 250 Mg Tablet Delayed Release PO 06/27/22 17:59 EVENING MEAL CORNELIA Duloxetine HCl 90 mg 05/28/22 10:00 05/28/22 09:47 Duloxetine Hcl 30 Mg Cap PO 06/27/22 09:59 90 mg DAILY CORNELIA Administration Furosemide 80 mg 05/28/22 09:00 05/28/22 09:48 Furosemide 40 Mg Tablet PO 06/27/22 08:59 80 mg 0800 CORNELIA Administration Furosemide 40 mg 05/28/22 12:00 Furosemide 40 Mg Tablet PO 06/27/22 11:59 LUNCH CORNELIA Piperacillin Sod/Tazobactam 100 mls @ 200 mls/hr 05/28/22 01:31 05/28/22 07:45 Sod 3.375 gm/ Sodium Chloride IV 05/31/22 01:30 200 mls/hr Q6HT CORNELIA Administration Clindamycin Phosphate 300 mg in 50 mls @ 100 mls/hr 05/28/22 01:31 05/28/22 07:46 Clindamycin Phosphate Ivpb IV 06/27/22 01:30 100 mls/hr Q6HT CORNELIA Administration Insulin Glargine 30 unit 05/28/22 10:00 05/28/22 10:00 Insulin Glargine 1 Unit SQ 06/27/22 09:59 30 unit QAM CORNELIA Administration Insulin Human Lispro 0 unit 05/28/22 01:31 05/28/22 10:02 Insulin Lispro 1 Unit SQ 06/27/22 01:30 3 unit UD PRN Administration HYPERGLYCEMIA Insulin Human Lispro 6 unit 05/28/22 11:30 Insulin Lispro 1 Unit SQ 06/27/22 11:29 AC [facility] Levothyroxine Sodium 25 mcg 05/28/22 10:00 05/28/22 09:56 Levothyroxine Sodium 25 Mcg Tablet PO 06/27/22 09:59 25 mcg DAILY CORNELIA Administration Loperamide HCl 4 mg 05/28/22 08:59 Loperamide Hcl 2 Mg Capsule PO 06/27/22 08:58 PRN PRN DIARRHEA Melatonin 9 mg 05/28/22 22:00 Melatonin 3 Mg Tablet PO 06/27/22 21:59 QHS [facility] Metoprolol Tartrate 25 mg 05/28/22 10:00 05/28/22 10:01 Metoprolol Tartrate 25 Mg Tab PO 06/27/22 09:59 Not Given BID [facility] Miscellaneous Information 1 each 05/28/22 09:45 Medication Intervention 1 Each Each 06/27/22 09:44 .RN TO CHECK CORNELIA Morphine Sulfate 2 mg 05/28/22 01:31 Morphine Sulfate 2 Mg/Ml Inj IV 06/02/22 01:30 Q4H PRN PRN PAIN Multivitamins 1 tab 05/28/22 10:00 05/28/22 09:59 Vitamin B Complex With Vit. C Tablet PO 06/27/22 09:59 1 tab DAILY CORNELIA Administration Nitroglycerin 0.4 mg 10/29/22 09:00 Nitroglycerin 0.4 Mg Tablet Bottle SL 06/27/22 08:59 UD PRN Nystatin 0 gm 05/28/22 10:00 05/28/22 09:56 Nystatin 15 Gm Powder TP 06/27/22 09:59 1 gm TID CORNELIA Administration Ondansetron HCl 4 mg 05/28/22 01:31 Ondansetron Hcl 4 Mg/2 Ml Vial IV 06/27/22 01:30 Q6H PRN PRN NAUSEA/VOMITING Oxybutynin Chloride 5 mg 05/28/22 10:00 05/28/22 09:49 Oxybutynin Chloride 5 Mg Tablet PO 06/27/22 09:59 5 mg BID CORNELIA Administration Pantoprazole Sodium 40 mg 05/28/22 10:00 05/28/22 09:49 Pantoprazole 40 Mg Vial IV 06/27/22 09:59 40 mg Q24H10 CORNELIA Administration Pramipexole Dihydrochloride 1 mg 05/28/22 10:00 05/28/22 09:47 Pramipexole Di-Hcl 0.5 Mg Tab PO 06/27/22 09:59 1 mg TID CORNELIA Administration Rivaroxaban 15 mg 05/28/22 18:00 Rivaroxaban 10 Mg Tablet PO 06/27/22 17:59 EVENING MEAL CORNELIA Ropinirole HCl 0.5 mg 05/28/22 10:00 05/28/22 09:46 Ropinirole Hcl 0.5 Mg Tablet PO 06/27/22 09:59 0.5 mg TID CORNELIA Administration Simvastatin 40 mg 05/28/22 22:00 Simvastatin 20 Mg Tablet PO 06/27/22 21:59 HS CORNELIA Triamcinolone Acetonide 0 ml 05/28/22 22:00 Triamcinolone Acetonide 60 Ml Lotion TP 06/27/22 21:59 QHS CORNELIA Discontinued Medications Generic Name Dose Route Start Last Admin Trade Name Freq PRN Reason Stop Dose Admin Albuterol/Ipratropium 3 ml 05/28/22 01:31 Ipratropium/Albuterol Sulfate 3 Ml Ampul.Neb IH 06/27/22 01:30 Q4HPRN PRN SHORTNESS OF BREATH/WHEEZING Aspirin 81 mg 05/28/22 10:00 05/28/22 10:01 Aspirin 81 Mg Tablet.Ec PO 06/27/22 09:59 Not Given DAILY CORNELIA Clindamycin HCl/Dextrose 600 mg in 50 mls @ 100 mls/hr 05/27/22 22:08 05/27/22 23:25 Clindamycin-D5w 600 Mg/50 Ml IV 05/27/22 22:37 100 ml/hr STAT STA 100 mls/hr Administration Piperacillin Sod/Tazobactam 100 mls @ 200 mls/hr 05/27/22 22:08 05/28/22 00:01 Sod 3.375 gm/ Sodium Chloride IV 05/27/22 22:37 200 mls/hr STAT ONE Administration Sodium Chloride Confirm 05/27/22 23:21 Sodium Chloride 100ml Mini-Bag Plus Administered 05/27/22 23:22 Dose 100 mls @ ud IV .STK-MED ONE Clindamycin HCl/Dextrose Confirm 05/27/22 23:21 Clindamycin-D5w 600 Mg/50 Ml Administered 05/27/22 23:22 Dose 600 mg in 50 mls @ ud IV .STK-MED ONE Morphine Sulfate 2 mg 05/27/22 22:15 05/27/22 23:25 Morphine Sulfate 2 Mg/Ml Inj IV 05/27/22 22:16 2 mg STAT ONE Administration Morphine Sulfate Confirm 05/27/22 23:20 Morphine Sulfate 2 Mg/Ml Inj Administered 05/27/22 23:21 Dose 2 mg .ROUTE .STK-MED ONE Ondansetron HCl 4 mg 05/27/22 22:15 05/27/22 23:26 Ondansetron Hcl 4 Mg/2 Ml Vial IV 05/27/22 22:16 4 mg STAT ONE Administration Ondansetron HCl Confirm 05/27/22 23:20 Ondansetron Hcl 4 Mg/2 Ml Vial Administered 05/27/22 23:21 Dose 4 mg .ROUTE .STK-MED ONE Piperacillin Sod/Tazobactam Sod Confirm 05/27/22 23:21 Piperacillin/Tazobactam Sodium 3.375 Gm Vial Administered 05/27/22 23:22 Dose 3.375 gm IV .STK-MED ONE Intake & Output (Last 24 hours) 05/25/22 05/26/22 05/27/22 05/28/22 11:59 11:59 11:59 11:59 Intake Total 240 Balance 240 Weight 127 kg Microbiology Results (Last 24 hours) 05/27/22 21:20 Blood Blood Culture Gram Stain - Pending 05/27/22 21:20 Blood Blood Culture - Pending 05/27/22 21:15 Blood Blood Culture Gram Stain - Pending 05/27/22 21:15 Blood Blood Culture - Pending Laboratory Results (Last 24 hours) 05/28/22 05/28/22 05/28/22 07:00 06:04 06:04 WBC 5.3 RBC 3.67 L Hgb 9.5 L Hct 31.5 L MCV 85.8 MCH 25.9 L MCHC 30.2 L RDW 20.0 H Plt Count 227 MPV 9.7 Gran % 50.5 Immature Gran % (Auto) 0.2 Nucleat RBC Rel Count 0.0 Eos # (Auto) 0.11 Immature Gran # (Auto) 0.01 Absolute Lymphs (auto) 1.95 Absolute Monos (auto) 0.50 Absolute Nucleated RBC 0.00 Lymphocytes % 37.1 Monocytes % 9.5 Eosinophils % 2.1 Basophils % 0.6 Absolute Granulocytes 2.65 Basophils # 0.03 Sodium 138 Potassium 3.6 Chloride 102 Carbon Dioxide 30 Anion Gap 9.2 BUN 24 H Creatinine 1.08 H Estimated GFR 52.7 Glucose 135 H POC Glucometer 163 H Lactic Acid Calcium 8.0 L Total Bilirubin 0.80 AST 23 ALT 16 Alkaline Phosphatase 109 Troponin I NT-Pro-B Natriuret Pep Serum Total Protein 5.9 L Albumin 3.1 L Procalcitonin Influenza Type A Ag Influenza Type B Ag RSV (PCR) SARS-CoV-2 (PCR) 05/28/22 05/27/22 05/27/22 06:04 22:17 21:30 WBC RBC Hgb Hct MCV MCH MCHC RDW Plt Count MPV Gran % Immature Gran % (Auto) Nucleat RBC Rel Count Eos # (Auto) Immature Gran # (Auto) Absolute Lymphs (auto) Absolute Monos (auto) Absolute Nucleated RBC Lymphocytes % Monocytes % Eosinophils % Basophils % Absolute Granulocytes Basophils # Sodium Potassium Chloride Carbon Dioxide Anion Gap BUN Creatinine Estimated GFR Glucose POC Glucometer Lactic Acid 1.3 Calcium Total Bilirubin AST ALT Alkaline Phosphatase Troponin I < 0.012 NT-Pro-B Natriuret Pep Serum Total Protein Albumin Procalcitonin Influenza Type A Ag NEGATIVE Influenza Type B Ag NEGATIVE RSV (PCR) NEGATIVE SARS-CoV-2 (PCR) NEGATIVE 05/27/22 05/27/22 05/27/22 21:20 21:20 21:20 WBC RBC Hgb Hct MCV MCH MCHC RDW Plt Count MPV Gran % Immature Gran % (Auto) Nucleat RBC Rel Count Eos # (Auto) Immature Gran # (Auto) Absolute Lymphs (auto) Absolute Monos (auto) Absolute Nucleated RBC Lymphocytes % Monocytes % Eosinophils % Basophils % Absolute Granulocytes Basophils # Sodium Potassium Chloride Carbon Dioxide Anion Gap BUN Creatinine Estimated GFR Glucose POC Glucometer Lactic Acid Calcium Total Bilirubin AST ALT Alkaline Phosphatase Troponin I < 0.012 NT-Pro-B Natriuret Pep 545 Serum Total Protein Albumin Procalcitonin 0.037 Influenza Type A Ag Influenza Type B Ag RSV (PCR) SARS-CoV-2 (PCR) 05/27/22 05/27/22 05/27/22 21:20 20:38 00:09 WBC 6.4 RBC 4.03 L Hgb 10.5 L Hct 34.9 L MCV 86.6 MCH 26.1 MCHC 30.1 L RDW 20.3 H Plt Count 248 MPV 9.6 Gran % 57.7 Immature Gran % (Auto) 0.3 Nucleat RBC Rel Count 0.0 Eos # (Auto) 0.13 Immature Gran # (Auto) 0.02 Absolute Lymphs (auto) 1.80 Absolute Monos (auto) 0.71 Absolute Nucleated RBC 0.00 Lymphocytes % 28.3 Monocytes % 11.2 Eosinophils % 2.0 Basophils % 0.5 Absolute Granulocytes 3.66 Basophils # 0.03 Sodium 139 Potassium 3.6 Chloride 104 Carbon Dioxide 29 Anion Gap 9.7 BUN 27 H Creatinine 0.99 Estimated GFR 58.3 Glucose 99 POC Glucometer Lactic Acid Calcium 8.3 L Total Bilirubin 0.90 AST 27 ALT 19 Alkaline Phosphatase 122 Troponin I < 0.012 NT-Pro-B Natriuret Pep Serum Total Protein 6.9 Albumin 3.6 Procalcitonin Influenza Type A Ag Influenza Type B Ag RSV (PCR) SARS-CoV-2 (PCR) Orders (Last 24 hours) Category Date Time Status Bedrest ROUTINE Activity 05/28/22 01:31 Active Up With Assistance ROUTINE Activity 05/28/22 01:31 Active Code Status Order ROUTINE Care 05/28/22 01:31 Active Fall Protocol Q1H Care 05/28/22 01:31 Active IV Care Q6H Care 05/28/22 01:31 Active IV Insertion STAT Care 05/27/22 20:38 Completed POCT Glucose Check ACHS Care 05/28/22 01:[address] in Observation ROUTINE Care 05/28/22 01:31 Active Weight,Daily 0600 Care 05/28/22 01:31 Active 1800 Calorie Carbohydrate Diet [Consistent Carbohydrate Diet 05/28/22 Breakfast Active Diet 1800 Calorie] Consistent Carbohydrate Diet 1800 Calorie Diet 05/28/22 Breakfast Completed BLOOD CULTURE Stat Lab 05/27/22 21:20 Received BNP [NT PRO BNP] Stat Lab 05/27/22 21:20 Completed CBC W DIFF AM.LAB Lab 05/28/22 06:04 Completed CBC W DIFF Stat Lab 05/27/22 20:38 Completed CMP AM.LAB Lab 05/28/22 06:04 Completed CMP Stat Lab 05/27/22 21:20 Completed COVID/FLU/RSV Panel Stat Lab 05/27/22 22:17 Completed Lactic Acid Stat Lab 05/27/22 21:30 Completed POCT GLUCOSE Stat Lab 05/28/22 07:00 Completed PROCALCITONIN Stat Lab 05/27/22 21:20 Completed TROPONIN Q3H Lab 05/27/22 21:20 Completed TROPONIN Q3H Lab 05/28/22 06:04 Completed Acetaminophen 325 mg [Tylenol 325 mg] Med 05/28/22 01:31 Active 650 mg PO Q4H PRN PRN Albuterol/Ipratropium 3ml Neb* [DUONEB 0.5-3 MG/3 ml Med 05/28/22 01:31 Discontinued Neb] 3 ml IH Q4HPRN PRN Allopurinol 100 mg [Zyloprim 100 mg] Med 05/28/22 10:00 Active 100 mg PO DAILY Amitriptyline HCl 10 mg [Elavil 10 mg] Med 05/28/22 10:00 Active 10 mg PO DAILY Aspirin EC 81 mg [Ecotrin 81 mg] Med 05/28/22 10:00 Discontinued 81 mg PO DAILY Balsam Mary/Mina Oil [Venelex Ointment] Med 05/28/22 10:00 Active See Dose Instructions TP DAILY Calcium Carb/Vitamin D 500 mg* [Calcium 500MG W/Vit D Med 05/28/22 10:00 Active Tablet] 1 tab PO DAILY Ciclopirox Olamine Cream [Loprox CREAM] Med 05/28/22 22:00 Active See Dose Instructions TOP HS Clindamycin 300 mg/50 ml [ClINDAMYCIN Phosphate IVPB Med 05/28/22 01:31 Active ] 300 mg in 50 ml IV Q6HT Clindamycin 600 mg/D5w 50 ml [Clindamycin-D5w 600 mg/ Med 05/27/22 22:08 Discontinued 50 ml] 600 mg in 50 ml IV STAT Clindamycin 600 mg/D5w 50 ml [Clindamycin-D5w 600 mg/ Med 05/27/22 23:21 Discontinued 50 ml] 600 mg in 50 ml IV UD Divalproex Sodium 250 mg [Divalproex DR 250 mg Tab] Med 05/28/22 10:00 Active 250 mg PO DAILY Divalproex Sodium 250 mg [Divalproex DR 250 mg Tab] Med 05/28/22 18:00 Active 500 mg PO EVENING MEAL Duloxetine HCl 30 mg [Cymbalta 30 MG Capsule] Med 05/28/22 10:00 Active 90 mg PO DAILY Furosemide 40 mg [Lasix 40 MG] Med 05/28/22 12:00 Active 40 mg PO LUNCH Furosemide 40 mg [Lasix 40 MG] Med 05/28/22 09:00 Active 80 mg PO 0800 Insulin Glargine [Lantus Insulin] Med 05/28/22 10:00 Active 30 unit SQ QAM Insulin Lispro [Humalog] Med 05/28/22 11:30 Active 6 unit SQ AC Insulin Lispro [Humalog] Med 05/28/22 01:31 Active See Dose Instructions SQ UD PRN Levothyroxine Sodium 25 Mcg [Synthroid 25 Mcg] Med 05/28/22 10:00 Active 25 mcg PO DAILY Lipase/Protease/Amylase [Zenpep Dr 5,000 Unit Capsule] Med 05/28/22 11:30 Active 5 each PO AC Loperamide HCl 2 mg [Imodium 2 mg] Med 05/28/22 08:59 Active 4 mg PO PRN PRN Medication Intervention Med 05/28/22 09:45 Active 1 each MC .RN TO CHECK Melatonin Med 05/28/22 22:00 Active 9 mg PO QHS Metoprolol Tartrate 25 mg [Lopressor 25MG Tab] Med 05/28/22 10:00 Active 25 mg PO BID Morphine Sulfate 2 mg Inj Med 05/27/22 23:20 Discontinued 2 mg .ROUTE .STK-MED ONE Morphine Sulfate 2 mg Inj Med 05/28/22 01:31 Active 2 mg IV Q4H PRN PRN Morphine Sulfate 2 mg Inj Med 05/27/22 22:15 Discontinued 2 mg IV STAT ONE NaCl 0.9% 100 ml Mini-Bag Plus [Sodium Chloride 100ML Med 05/27/22 23:21 Discontinued MINI-BAG PLUS] 100 ml IV UD Nitroglycerin 0.4 mg Tablet [Nitrostat 0.4 MG Tablet Med 05/28/22 09:00 Active ] 0.4 mg SL UD PRN Nystatin Powder 15 gm [Nystop Powder 15 gm] Med 05/28/22 10:00 Active 0 gm TP TID Ondansetron HCl 4 mg/2 ml [Zofran 4 MG/2 ML VIAL] Med 05/27/22 23:20 Discontinued 4 mg .ROUTE .STK-MED ONE Ondansetron HCl 4 mg/2 ml [Zofran 4 MG/2 ML VIAL] Med 05/28/22 01:31 Active 4 mg IV Q6H PRN PRN Ondansetron HCl 4 mg/2 ml [Zofran 4 MG/2 ML VIAL] Med 05/27/22 22:15 Discontinued 4 mg IV STAT ONE Oxybutynin Chloride 5 mg [Ditropan 5 MG] Med 05/28/22 10:00 Active 5 mg PO BID Pantoprazole 40 mg [Protonix 40 mg IV] Med 05/28/22 10:00 Active 40 mg IV Q24H10 Piperacillin/Tazobactam 3.375G [Piperacillin/Tazobactam Med 05/27/22 23:21 Discontinued ] 3.375 gm IV .STK-MED ONE Piperacillin/Tazobactam 3.375G [Piperacillin/Tazobactam Med 05/28/22 01:31 Active ] 3.375 gm NaCl 0.9% 100 ml Mini-Bag Plus [Sodium Chloride 100ML MINI-BAG PLUS] 100 ml IV Q6HT Piperacillin/Tazobactam 3.375G [Piperacillin/Tazobactam Med 05/27/22 22:08 Discontinued ] 3.375 gm NaCl 0.9% 100 ml Mini-Bag Plus [Sodium Chloride 100ML MINI-BAG PLUS] 100 ml IV STAT Pramipexole Di-HCl 0.5 mg [Mirapex 0.5 MG Tablet] Med 05/28/22 10:00 Active 1 mg PO TID Rivaroxaban 10 mg Tablet [Xarelto 10 mg Tablet] Med 05/28/22 18:00 Active 15 mg PO EVENING MEAL Ropinirole HCl 0.5 mg [Requip 0.5 MG] Med 05/28/22 10:00 Active 0.5 mg PO TID Simvastatin 20Mg [Zocor 20Mg] Med 05/28/22 22:00 Active 40 mg PO HS Triamcinolone 0.1% Lotion [Kenalog 0.1% Lotion] Med 05/28/22 22:00 Active 0 ml TP QHS Vitamin B Comp W-C [Temi-Bee with C] Med 05/28/22 10:00 Active 1 tab PO DAILY Patient Care Notes (Last 24 hours) 05/28/22 04:50 Respiratory Note by Raza Youssef CANCELLED PRN ORDER FOR NEB TX NOT INDICATED AT THIS TIME. Initialized on 05/28/22 04:50 - END OF NOTE Code(s): L03.116 - CELLULITIS OF LEFT LOWER LIMB; L03.115 - CELLULITIS OF RIGHT LOWER LIMB (2) Ulcer of extremity due to chronic venous insufficiency Current Visit: Yes Status: Chronic Code(s): L98.499 - NON-PRESSURE CHRONIC ULCER OF SKIN OF SITES W UNSP SEVERITY; I87.2 - VENOUS INSUFFICIENCY (CHRONIC) (PERIPHERAL) (3) Diabetes mellitus type II, controlled Current Visit: Yes Status: Chronic Qualifiers: Diabetes mellitus penitentiary insulin use: with penitentiary use Diabetes mellitus complication status: with skin complications Diabetes mellitus complication detail: with foot ulcer Qualified Code(s): E11.621 - Type 2 diabetes mellitus with foot ulcer; L97.509 - Non-pressure chronic ulcer of other part of unspecified foot with unspecified severity; 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
[2022-05-28] MEDS ORDERED: PROTEASE PO SCH (11:30)
[2022-05-28] MEDS: HUMALOG SQ SCH ×2 (11:30→16:06)
[2022-05-28] MEDS ORDERED: AMYLASE PO SCH (11:30)
[2022-05-28] MEDS ORDERED: NON-FORMULARY ITEM (Insulin Lispro [Admelog Solostar] 100 UNIT/ML Insuln.Pen) SQ SCH (11:30)
[2022-05-28] MEDS ORDERED: LIPASE PO SCH (11:30)
[2022-05-28] MEDS ORDERED: [UNRECOGNIZED DRUG - OTHER] PO SCH (11:30)
[2022-05-28] MEDS: ZENPEP DR 5,000 UNIT CAPSULE PO SCH ×2 (11:31→16:06)
[2022-05-28] MEDS: XARELTO 10 MG TABLET PO SCH (17:55)
[2022-05-28] MEDS ORDERED: NON-FORMULARY ITEM (Rivaroxaban [Xarelto] 15 MG Tablet) PO SCH (18:00)
[2022-05-28] MEDS: LOPROX TOP SCH (20:52)
[2022-05-28] MEDS ORDERED: COMBO TOP SCH (22:00)
[2022-05-28] MEDS ORDERED: CICLOPIROX TOP SCH (22:00)
[2022-05-28] MEDS ORDERED: KENALOG 0.1% LOTION TP SCH (22:00)
[2022-05-28] MEDS ORDERED: [UNRECOGNIZED DRUG - OTHER] TOP SCH (22:00)
[2022-05-28] MEDS ORDERED: NON-FORMULARY ITEM (Atorvastatin Calcium [Atorvastatin Calcium] 80 MG Tablet) PO SCH (22:00)
[2022-05-28] MEDS ORDERED: BALSALAZIDE DISODIUM 750 MG PO SCH (22:00)
[2022-05-28] MEDS ORDERED: NON-FORMULARY ITEM (Melatonin [Melatonin] 10 MG Tablet) PO SCH (22:00)
[2022-05-28] MEDS: IMODIUM 2 MG PO PRN (22:28)
[2022-05-28] MEDS: MELATONIN PO SCH (22:29)
[2022-05-28] MEDS: ZOCOR 20MG PO SCH (22:29)
[2022-05-29] MEDS: ClINDAMYCIN Phosphate IVPB 300 MG/50 ML IVPB IV SCH ×5 (00:17→23:57)
[2022-05-29 05:24] LABS: Bacteria RARE /HPF (NEGATIVE); Epithelial Cells RARE /HPF (FEW); WBC 0-2 /HPF (0-5)
[2022-05-29 05:39] LABS: Appearance CLEAR (CLEAR); Bilirubin NEGATIVE (NEGATIVE); Glucose NEGATIVE (NEGATIVE)
[2022-05-29 05:40] LABS: Dipstick done @ ? MAIN LAB; Ketones NEGATIVE (NEGATIVE); Nitrite NEGATIVE (NEGATIVE); Ph 5.5 (5-6); Protein,Urine Dip NEGATIVE (Negative); RBC NEGATIVE Ery/ul (0-5); Urine Cultured Indicated? NO; Urobilinogen 0.2 mg/dL (0-1)
[2022-05-29] MEDS: PIPERACILLIN/TAZOBACTAM 3.375 GM in Sodium Chloride 100ML MINI-BAG PLUS 100 ML IV SCH ×4 (06:28→23:57)
[2022-05-29] MEDS: HUMALOG SQ PRN (08:10)
[2022-05-29] MEDS: HUMALOG SQ SCH ×3 (08:13→16:53)
[2022-05-29] MEDS: ZENPEP DR 5,000 UNIT CAPSULE PO SCH ×3 (08:14→16:52)
[2022-05-29] MEDS: Lasix 40 MG PO SCH ×2 (08:16→12:20)
[2022-05-29] MEDS: MORPHINE SULFATE 2 MG INJ IV PRN ×2 (08:24→16:29)
[2022-05-29] MEDS: Cymbalta 30 MG Capsule PO SCH (09:29)
[2022-05-29] MEDS: ELAVIL 10 MG PO SCH (09:29)
[2022-05-29] MEDS: Ditropan 5 MG PO SCH ×2 (09:29→21:11)
[2022-05-29] MEDS: Calcium 500MG W/Vit D Tablet PO SCH (09:29)
[2022-05-29] MEDS: Lantus Insulin SQ SCH (09:30)
[2022-05-29] MEDS: Lopressor 25MG Tab PO SCH ×2 (09:30→21:10)
[2022-05-29] MEDS: NYSTOP POWDER 15 GM TP SCH ×3 (09:31→23:53)
[2022-05-29] MEDS: Mirapex 0.5 MG Tablet PO SCH ×3 (09:31→21:10)
[2022-05-29] MEDS: PROTONIX 40 MG IV IV SCH (09:32)
[2022-05-29] MEDS: Requip 0.5 MG PO SCH ×3 (09:32→21:10)
[2022-05-29] MEDS: VITA-BEE WITH C PO SCH (09:33)
[2022-05-29] MEDS: SYNTHROID 25 MCG PO SCH (09:33)
[2022-05-29] MEDS: ZYLOPRIM 100 MG PO SCH (09:34)
--- NOTE | 2022-05-29 13:23 | PCM.NOTE ---
Date and Time: 05/29/22 1320 Subjective Assessment: doing little better - Review of Systems Constitutional: No Fever, No Chills Eyes: No Symptoms Ears, Nose, & Throat: No Symptoms Respiratory: No Cough, No Short Of Breath Cardiac: No Chest Pain, No Edema, No Syncope Abdominal/Gastrointestinal: No Abdominal Pain, No Nausea, No Vomiting, No Diarrhea Genitourinary Symptoms: No Dysuria Musculoskeletal: No Back Pain, No Neck Pain Skin: Cellulitis (both lower extrimities.), No Rash Neurological: No Dizziness, No Focal Weakness, No Sensory Changes Psychological: No Symptoms Endocrine: No Symptoms Hematologic/Lymphatic: No Symptoms Immunological/Allergic: No Symptoms Objective Exam General Appearance: no apparent distress, alert, obese Neurologic Exam: alert, oriented x 3, cooperative, normal mood/affect, nml cerebellar function, sensation nml, No motor deficits Skin Exam: normal color, warm, dry Wound Assessment: Skin/Wound Assessment Wound/Incision Assessment Start: 05/28/22 01:35 Text: Status: Active Freq: Q6H Protocol: Document 05/29/22 09:00 RB (Rec: 05/29/22 11:04 RB [id number]) Wound/Incision Assessment Anterior/Posterior Calf Wound Assessment Shift Assessment Wound Type cellulitis Drainage Amount Large Drainage Description Serosanguineous Drainage Odor None/Absent Surrounding Tissue Bright Red,Edematous Topical Solution/Irrigant Medicated Ointment Packing Type Gauze Pads,Gauze Roll Primary Dressing Non-Adherent Gauze Pads Secondary Dressing Gauze Roll/Wrap Comment large abdominal ABD pad each calf. Large amount of fluid vesicles noted to right calf Wound Photo Photo Taken No Eye Exam: PERRL, EOMI, eyes nml inspection Ears, Nose, Throat Exam: normal ENT inspection, pharynx normal, moist mucous membranes Neck Exam: normal inspection, non-tender, supple, full range of motion Respiratory Exam: normal breath sounds, lungs clear, No respiratory distress Cardiovascular Exam: regular rate/rhythm, normal heart sounds Gastrointestinal/Abdomen Exam: soft, No tenderness, No mass Extremity Exam: normal range of motion, inflammation, swelling Back Exam: normal inspection, normal range of motion, No CVA tenderness, No vertebral tenderness Pelvic Exam: deferred Rectal Exam: deferred OBJECTIVE DATA Vital Signs: Vital Signs - 24 hr Temp Pulse Resp BP Pulse Ox 05/29/22 12:00 97.7 F 80 16 156/86 95 05/29/22 07:44 97.6 F 66 18 118/62 90 L 05/29/22 04:00 98.7 F 78 20 118/57 96 05/28/22 23:55 98.4 F 80 17 125/61 96 05/28/22 20:00 98.3 F 73 20 119/59 96 05/28/22 16:00 97.6 F 64 19 108/60 94 L Pain Assessment - Last Documented Pain Intensity 0 Pain Scale Used 0-10 Pain Scale Intake and Output: Intake & Output 05/27/22 05/28/22 05/29/22 05/30/22 11:59 11:59 11:59 11:59 Intake Total 240 2170 Output Total 1000 Balance 240 1170 Weight 127 kg 125.1 kg Lab Results: Lab Results-Last 24 Hours 05/28/22 05/28/22 05/29/22 Range/Units 16:00 21:15 04:58 POC Glucometer 113 H 115 H (74 to 106) mg/dL Urinalys Dipstick Clnc MAIN LAB Urine Color YELLOW (YELLOW) Urine Appearance CLEAR (CLEAR) Urine pH 5.5 (5-6) Ur Specific [place] 1.020 (1.005-1.025) POC Urine Protein Conf NEGATIVE (Negative) Urine Ketones NEGATIVE (NEGATIVE) Urine Nitrite NEGATIVE (NEGATIVE) Urine Bilirubin NEGATIVE (NEGATIVE) Urine Urobilinogen 0.2 (0-1) mg/dL Urine Leukocytes NEGATIVE (NEGATIVE) Urine WBC (Auto) 0-2 (0-5) /HPF Urine RBC (Auto) NONE (0-2) /HPF U Epithel Cells (Auto) RARE (FEW) /HPF Urine Bacteria (Auto) RARE (NEGATIVE) /HPF Urine RBC NEGATIVE (0-5) Chente/ul Ur Culture Indicated? NO Urine Glucose NEGATIVE (NEGATIVE) mg/dL 05/29/22 05/29/22 Range/Units 07:36 11:54 POC Glucometer 161 H 94 (74 to 106) mg/dL Urinalys Dipstick Clnc Urine Color (YELLOW) Urine Appearance (CLEAR) Urine pH (5-6) Ur Specific [place] (1.005-1.025) POC Urine Protein Conf (Negative) Urine Ketones (NEGATIVE) Urine Nitrite (NEGATIVE) Urine Bilirubin (NEGATIVE) Urine Urobilinogen (0-1) mg/dL Urine Leukocytes (NEGATIVE) Urine WBC (Auto) (0-5) /HPF Urine RBC (Auto) (0-2) /HPF U Epithel Cells (Auto) (FEW) /HPF Urine Bacteria (Auto) (NEGATIVE) /HPF Urine RBC (0-5) Chente/ul Ur Culture Indicated? Urine Glucose (NEGATIVE) mg/dL Assessment/Plan (1) MRSA (methicillin resistant Staphylococcus aureus) infection Current Visit: Yes Status: Acute Assessment & Plan: Medication Report Allopurinol (Allopurinol 100 Mg Tablet) 100 mg PO DAILY CORNELIA Stop: 06/27/22 09:59 Last Admin: 05/29/22 09:34 Dose: 100 mg Documented by: TONNY Amitriptyline HCl (Amitriptyline Hcl 10 Mg Tablet) 10 mg PO DAILY CORNELIA Stop: 06/27/22 09:59 Last Admin: 05/29/22 09:29 Dose: 10 mg Documented by: TONNY Lipase/Protease/Amylase (Lipase/Protease/Amylase 1 Each Capsule.Dr) 5 each PO AC CORNELIA Stop: 06/27/22 11:29 Last Admin: 05/29/22 11:31 Dose: 5 each Documented by: SARAH Balsam Mary/[place] Oil (Balsam Blaine/[place] Oil 30 Gm Oint...G.) 0 gm TP DAILY CORNELIA Stop: 06/27/22 09:59 Last Admin: 05/28/22 09:58 Dose: 1 gm Documented by: SARAH Comments: BLE MAR TOPICAL APPLICATION SITE Document 05/28/22 09:58 SARAH (Rec: 05/28/22 09:59 SARAH [id number]) Application Site Other BLE Calcium Carbonate (Calcium Carbonate 500 Mg/Vitamin D 1 Tab Tablet) 1 tab PO DAILY CORNELIA Stop: 06/27/22 09:59 Last Admin: 05/29/22 09:29 Dose: 1 tab Documented by: TONNY Divalproex Sodium (Divalproex Sodium 250 Mg Tablet Delayed Release) 250 mg PO DAILY CORNELIA Stop: 06/27/22 09:59 Last Admin: 05/29/22 09:29 Dose: 250 mg Documented by: TONNY Divalproex Sodium (Divalproex Sodium 250 Mg Tablet Delayed Release) 500 mg PO EVENING MEAL CORNELIA Stop: 06/27/22 17:59 Last Admin: 05/28/22 17:57 Dose: 500 mg Documented by: SARAH Duloxetine HCl (Duloxetine Hcl 30 Mg Cap) 90 mg PO DAILY CORNELIA Stop: 06/27/22 09:59 Last Admin: 05/29/22 09:29 Dose: 90 mg Documented by: TONNY Furosemide (Furosemide 40 Mg Tablet) 80 mg PO 0800 CORNELIA Stop: 06/27/22 08:59 Last Admin: 05/29/22 08:16 Dose: 80 mg Documented by: SARAH Furosemide (Furosemide 40 Mg Tablet) 40 mg PO LUNCH CORNELIA Stop: 06/27/22 11:59 Last Admin: 05/29/22 12:20 Dose: 40 mg Documented by: TONNY Piperacillin Sod/Tazobactam (Sod 3.375 gm/ Sodium Chloride) 100 mls @ 200 mls /hr IV Q6HT ON LICENSE OF [facility] Stop: 05/31/22 01:30 Last Admin: 05/29/22 12:21 Dose: 200 mls/hr Documented by: TONNY Clindamycin Phosphate (Clindamycin Phosphate Ivpb) 300 mg in 50 mls @ 100 mls/hr IV Q6HT ON LICENSE OF [facility] Stop: 06/27/22 01:30 Last Admin: 05/29/22 12:19 Dose: 100 mls/hr Documented by: TONNY Insulin Glargine (Insulin Glargine 1 Unit) 30 unit SQ QAM ON LICENSE OF [facility] Stop: 06/27/22 09:59 Last Admin: 05/29/22 09:30 Dose: 30 unit Documented by: TONNY MAR Injection Site Document 05/29/22 09:30 TONNY (Rec: 05/29/22 09:31 TONNY [id number]) Injection Site MAR Injection Site Right Deltoid Insulin Human Lispro (Insulin Lispro 1 Unit) 0 unit SQ UD PRN PRN Reason: HYPERGLYCEMIA Stop: 06/27/22 01:30 Last Admin: 05/29/22 08:10 Dose: 3 unit Documented by: SARAH COFFMAN GLUCOSE CHECK Document 05/29/22 08:10 RB (Rec: 05/29/22 08:11 SARAH [id number]) POCT Blood Glucose POCT Glucose (Last Value) 161 mg/dL (74 to 106) H MAR Injection Site Document 05/29/22 08:10 SARAH (Rec: 05/29/22 08:11 SARAH [id number]) Injection Site MAR Injection Site Left Lower Quad Insulin Human Lispro (Insulin Lispro 1 Unit) 6 unit SQ AC CORNELIA Stop: 06/27/22 11:29 Last Admin: 05/29/22 11:30 Dose: 6 unit Documented by: SARAH [facility] GLUCOSE CHECK Document 05/29/22 11:30 RB (Rec: 05/29/22 11:31 RB [id number]) POCT Blood Glucose POCT Glucose (Last Value) 161 mg/dL (74 to 106) H [facility] Injection Site Document 05/29/22 11:30 RB (Rec: 05/29/22 11:31 RB [id number]) Injection Site MAR Injection Site Left Lower Quad Levothyroxine Sodium (Levothyroxine Sodium 25 Mcg Tablet) 25 mcg PO DAILY CORNELIA Stop: 06/27/22 09:59 Last Admin: 05/29/22 09:33 Dose: 25 mcg Documented by: TONNY Loperamide HCl (Loperamide Hcl 2 Mg Capsule) 4 mg PO PRN PRN PRN Reason: DIARRHEA Stop: 06/27/22 08:58 Last Admin: 05/28/22 22:28 Dose: 4 mg Documented by: Melatonin (Melatonin 3 Mg Tablet) 9 mg PO QHS CORNELIA Stop: 06/27/22 21:59 Last Admin: 05/28/22 22:29 Dose: 9 mg Documented by: Metoprolol Tartrate (Metoprolol Tartrate 25 Mg Tab) 25 mg PO BID CORNELIA Stop: 06/27/22 09:59 Last Admin: 05/29/22 09:30 Dose: 25 mg Documented by: TONNY Morphine Sulfate (Morphine Sulfate 2 Mg/Ml Inj) 2 mg IV Q4H PRN PRN PRN Reason: PAIN Stop: 06/02/22 01:30 Last Admin: 05/29/22 08:24 Dose: 2 mg Documented by: SARAH [facility] PAIN Document 05/29/22 08:24 RB (Rec: 05/29/22 08:24 RB [id number]) Reassesment Pain Site Bilateral Location Leg Pain Scale Used 0-10 Pain Scale Pain Intensity (0-10) 6 Re-Assess: Pain Reassessment Document 05/29/22 08:54 TONNY (Rec: 05/29/22 10:30 TONNY [id number]) Pain Description Pain Scale Used 0-10 Pain Scale Pain Intensity (0-10) 4 Comment Patient states they still hurt but are feeling a little better Multivitamins (Vitamin B Complex With Vit. C Tablet) 1 tab PO DAILY CORNELIA Stop: 06/27/22 09:59 Last Admin: 05/29/22 09:33 Dose: 1 tab Documented by: TONNY Nystatin (Nystatin 15 Gm Powder) 0 gm TP TID CORNELIA Stop: 06/27/22 09:59 Last Admin: 05/29/22 09:31 Dose: 15 gm Documented by: TONNY MAR TOPICAL APPLICATION SITE Document 05/29/22 09:31 TONNY (Rec: 05/29/22 09:32 TONNY [id number]) Application Site Applied to: Left Upper Chest,Left Lower Abdomen,Right Upper Chest, Right Lower Abdomen Ondansetron HCl (Ondansetron Hcl 4 Mg/2 Ml Vial) 4 mg IV Q6H PRN PRN PRN Reason: NAUSEA/VOMITING Stop: 06/27/22 01:30 Last Admin: 05/28/22 20:16 Dose: 4 mg Documented by: Oxybutynin Chloride (Oxybutynin Chloride 5 Mg Tablet) 5 mg PO BID CORNELIA Stop: 06/27/22 09:59 Last Admin: 05/29/22 09:29 Dose: 5 mg Documented by: TONNY Pantoprazole Sodium (Pantoprazole 40 Mg Vial) 40 mg IV Q24H10 CORNELIA Stop: 06/27/22 09:59 Last Admin: 05/29/22 09:32 Dose: 40 mg Documented by: TONNY Pramipexole Dihydrochloride (Pramipexole Di-Hcl 0.5 Mg Tab) 1 mg PO TID CORNELIA Stop: 06/27/22 09:59 Last Admin: 05/29/22 09:31 Dose: 1 mg Documented by: TONNY Rivaroxaban (Rivaroxaban 10 Mg Tablet) 15 mg PO EVENING MEAL CORNELIA Stop: 06/27/22 17:59 Last Admin: 05/28/22 17:55 Dose: 15 mg Documented by: SARAH Ropinirole HCl (Ropinirole Hcl 0.5 Mg Tablet) 0.5 mg PO TID CORNELIA Stop: 06/27/22 09:59 Last Admin: 05/29/22 09:32 Dose: 0.5 mg Documented by: TONNY Simvastatin (Simvastatin 20 Mg Tablet) 40 mg PO HS CORNELIA Stop: 06/27/22 21:59 Last Admin: 05/28/22 22:29 Dose: 40 mg Documented by: MS Discontinued Medications Aspirin (Aspirin 81 Mg Tablet.Ec) 81 mg PO DAILY CORNELIA Stop: 06/27/22 09:59 Last Admin: 05/28/22 10:01 Dose: Not Given Documented by: RB Non-Admin Reason: DR ORDER DUE TO PROCEDURE ON Jun.01 Ciclopirox Olamine (Ciclopirox Olamine 15 Gm Tube Cream) 0 gm TOP HS CORNELIA Stop: 06/27/22 21:59 Last Admin: 05/28/22 20:52 Dose: 15 gm Documented by: MS COFFMAN TOPICAL APPLICATION SITE Document 05/28/22 20:52 MS (Rec: 05/28/22 20:53 MS [id number]) Application Site Other bilateral lower legs Clindamycin HCl/Dextrose (Clindamycin-D5w 600 Mg/50 Ml) 600 mg in 50 mls @ 100 mls/hr IV STAT STA Stop: 05/27/22 22:37 Last Admin: 05/27/22 23:25 Dose: 100 ml/hr, 100 mls/hr Documented by: MARLYS Med Admininistration (IV,IVP) Document 05/27/22 23:25 ASC (Rec: 05/27/22 23:25 ASC [id number]) Type of Administration Initial IV Push No Infusion/Titration Document 05/27/22 23:25 ASC (Rec: 05/27/22 23:25 ASC [id number]) Dosing & Rate Titration Dose 100 IV Rate 100 Increase/Decrease Started IV Intake Container Volume 50 Volume Adjustment/Waste 0 Piperacillin Sod/Tazobactam (Sod 3.375 gm/ Sodium Chloride) 100 mls @ 200 mls/hr IV STAT ONE Stop: 05/27/22 22:37 Last Admin: 05/28/22 00:01 Dose: 200 mls/hr Documented by: TONNY Med Admininistration (IV,IVP) Document 05/28/22 00:01 TONNY (Rec: 05/28/22 00:02 TONNY [id number]) Type of Administration Initial IV Push No Morphine Sulfate (Morphine Sulfate 2 Mg/Ml Inj) 2 mg IV STAT ONE Stop: 05/27/22 22:16 Last Admin: 05/27/22 23:25 Dose: 2 mg Documented by: MARLYS Med Admininistration (IV,IVP) Document 05/27/22 23:25 ASC (Rec: 05/27/22 23:25 ASC [id number]) Type of Administration Initial IV Push No IV Push-Addtl Different Drug Yes MAR PAIN Document 05/27/22 23:25 ASC (Rec: 05/27/22 23:25 ASC [id number]) Reassesment Pain Scale Used 0-10 Pain Scale Pain Intensity (0-10) 6 Ondansetron HCl (Ondansetron Hcl 4 Mg/2 Ml Vial) 4 mg IV STAT ONE Stop: 05/27/22 22:16 Last Admin: 05/27/22 23:26 Dose: 4 mg Documented by: MARLYS Med Admininistration (IV,IVP) Document 05/27/22 23:26 ASC (Rec: 05/27/22 23:26 ASC [id number]) Type of Administration Initial IV Push Yes Triamcinolone Acetonide (Triamcinolone Acetonide 60 Ml Lotion) 0 ml TP QHS ON LICENSE OF [facility] Stop: 06/27/22 21:59 Last Admin: 05/28/22 22:34 Dose: 60 ml Documented by: MS COFFMAN TOPICAL APPLICATION SITE Document 05/28/22 22:34 MS (Rec: 05/28/22 22:34 MS [id number]) Application Site Other bilateral lower legs Medication Adminisitration Report Acetaminophen (Acetaminophen 325 Mg Tablet) 650 mg PO Q4H PRN PRN PRN Reason: PAIN AND/OR FEVER Stop: 06/27/22 01:30 Allopurinol (Allopurinol 100 Mg Tablet) 100 mg PO DAILY ON LICENSE OF [facility] Stop: 06/27/22 09:59 Last Admin: 05/29/22 09:34 Dose: 100 mg Documented by: Admin: 05/28/22 09:57 Dose: 100 mg Documented by: SARAH Amitriptyline HCl (Amitriptyline Hcl 10 Mg Tablet) 10 mg PO DAILY ON LICENSE OF [facility] Stop: 06/27/22 09:59 Last Admin: 05/29/22 09:29 Dose: 10 mg Documented by: Admin: 05/28/22 09:48 Dose: 10 mg Documented by: SARAH Lipase/Protease/Amylase (Lipase/Protease/Amylase 1 Each Capsule.Dr) 5 each PO AC CORNELIA Stop: 06/27/22 11:29 Last Admin: 05/29/22 11:31 Dose: 5 each Documented by: Admin: 05/29/22 08:14 Dose: 5 each Documented by: Admin: 05/28/22 16:06 Dose: 5 each Documented by: Admin: 05/28/22 11:31 Dose: 5 each Documented by: SARAH Balsam [place] Oil (Balsam Mary/[place] Oil 30 Gm Oint...G.) 0 gm TP DAILY CORNELIA Stop: 06/27/22 09:59 Last Admin: 05/28/22 09:58 Dose: 1 gm Documented by: SARAH Comments: BLE MAR TOPICAL APPLICATION SITE Document 05/28/22 09:58 SARAH (Rec: 05/28/22 09:59 SARAH [id number]) Application Site Other BLE Calcium Carbonate (Calcium Carbonate 500 Mg/Vitamin D 1 Tab Tablet) 1 tab PO DAILY CORNELIA Stop: 06/27/22 09:59 Last Admin: 05/29/22 09:29 Dose: 1 tab Documented by: Admin: 05/28/22 09:51 Dose: 1 tab Documented by: SARAH Divalproex Sodium (Divalproex Sodium 250 Mg Tablet Delayed Release) 250 mg PO DAILY CORNELIA Stop: 06/27/22 09:59 Last Admin: 05/29/22 09:29 Dose: 250 mg Documented by: Admin: 05/28/22 09:56 Dose: 250 mg Documented by: SARAH Divalproex Sodium (Divalproex Sodium 250 Mg Tablet Delayed Release) 500 mg PO EVENING MEAL CORNELIA Stop: 06/27/22 17:59 Last Admin: 05/28/22 17:57 Dose: 500 mg Documented by: SARAH Duloxetine HCl (Duloxetine Hcl 30 Mg Cap) 90 mg PO DAILY CORNELIA Stop: 06/27/22 09:59 Last Admin: 05/29/22 09:29 Dose: 90 mg Documented by: Admin: 05/28/22 09:47 Dose: 90 mg Documented by: SARAH Furosemide (Furosemide 40 Mg Tablet) 80 mg PO 0800 CORNELIA Stop: 06/27/22 08:59 Last Admin: 05/29/22 08:16 Dose: 80 mg Documented by: Admin: 05/28/22 09:48 Dose: 80 mg Documented by: RB Furosemide (Furosemide 40 Mg Tablet) 40 mg PO LUNCH CORNELIA Stop: 06/27/22 11:59 Last Admin: 05/29/22 12:20 Dose: 40 mg Documented by: Admin: 05/28/22 11:42 Dose: 40 mg Documented by: RB Piperacillin Sod/Tazobactam (Sod 3.375 gm/ Sodium Chloride) 100 mls @ 200 mls/hr IV Q6HT CORNELIA Stop: 05/31/22 01:30 Last Admin: 05/29/22 12:21 Dose: 200 mls/hr Documented by: Admin: 05/29/22 06:28 Dose: 200 mls/hr Documented by: Admin: 05/28/22 23:52 Dose: 200 mls/hr Documented by: Admin: 05/28/22 17:55 Dose: 200 mls/hr Documented by: Admin: 05/28/22 12:16 Dose: 200 mls/hr Documented by: Admin: 05/28/22 07:45 Dose: 200 mls/hr Documented by: Admin: 05/28/22 03:06 Dose: Not Given Documented by: RB(2) Non-Admin Reason: given in ER Clindamycin Phosphate (Clindamycin Phosphate Ivpb) 300 mg in 50 mls @ 100 mls/hr IV Q6HT ON LICENSE OF [facility] Stop: 06/27/22 01:30 Last Admin: 05/29/22 12:19 Dose: 100 mls/hr Documented by: Admin: 05/29/22 05:59 Dose: 100 mls/hr Documented by: Admin: 05/29/22 00:17 Dose: 100 mls/hr Documented by: Admin: 05/28/22 17:58 Dose: 100 mls/hr Documented by: Admin: 05/28/22 11:42 Dose: 100 mls/hr Documented by: Admin: 05/28/22 07:46 Dose: 100 mls/hr Documented by: Admin: 05/28/22 03:07 Dose: Not Given Documented by: RB(2) Non-Admin Reason: given in ER Insulin Glargine (Insulin Glargine 1 Unit) 30 unit SQ QAM CORNELIA Stop: 06/27/22 09:59 Last Admin: 05/29/22 09:30 Dose: 30 unit Documented by: TONNY MAR Injection Site Document 05/29/22 09:30 TONNY (Rec: 05/29/22 09:31 KNW [id number]) Injection Site MAR Injection Site Right Deltoid Admin: 05/28/22 10:00 Dose: 30 unit Documented by: SARAH Comments: NO STICKERS IN PYXIS MAR Injection Site Document 05/28/22 10:00 RB (Rec: 05/28/22 10:00 SARAH [id number]) Injection Site MAR Injection Site Left Deltoid Insulin Human Lispro (Insulin Lispro 1 Unit) 0 unit SQ UD PRN PRN Reason: HYPERGLYCEMIA Stop: 06/27/22 01:30 Last Admin: 05/29/22 08:10 Dose: 3 unit Documented by: SARAH [facility] GLUCOSE CHECK Document 05/29/22 08:10 RB (Rec: 05/29/22 08:11 SARAH [id number]) POCT Blood Glucose POCT Glucose (Last Value) 161 mg/dL (74 to 106) H [facility] Injection Site Document 05/29/22 08:10 RB (Rec: 05/29/22 08:11 RB [id number]) Injection Site MAR Injection Site Left Lower Quad Admin: 05/28/22 10:02 Dose: 3 unit Documented by: SARAH [facility] GLUCOSE CHECK Document 05/28/22 10:02 RB (Rec: 05/28/22 10:02 RB [id number]) POCT Blood Glucose POCT Glucose (Last Value) 163 mg/dL (74 to 106) H [facility] Injection Site Document 05/28/22 10:02 RB (Rec: 05/28/22 10:02 RB [id number]) Injection Site MAR Injection Site Right Deltoid Insulin Human Lispro (Insulin Lispro 1 Unit) 6 unit SQ AC CORNELIA Stop: 06/27/22 11:29 Last Admin: 05/29/22 11:30 Dose: 6 unit Documented by: SARAH [facility] GLUCOSE CHECK Document 05/29/22 11:30 RB (Rec: 05/29/22 11:31 RB [id number]) POCT Blood Glucose POCT Glucose (Last Value) 161 mg/dL (74 to 106) H [facility] Injection Site Document 05/29/22 11:30 RB (Rec: 10/30/22 11:31 RB [id number]) Injection Site MAR Injection Site Left Lower Quad Admin: 05/29/22 08:13 Dose: 6 unit Documented by: RB [facility] GLUCOSE CHECK Document 05/29/22 08:13 RB (Rec: 05/29/22 08:14 RB [id number]) POCT Blood Glucose POCT Glucose (Last Value) 161 mg/dL (74 to 106) H [facility] Injection Site Document 05/29/22 08:13 RB (Rec: 05/29/22 08:14 RB [id number]) Injection Site MAR Injection Site Right Lower Quad Admin: 05/28/22 16:06 Dose: 6 unit Documented by: RB [facility] GLUCOSE CHECK Document 05/28/22 16:06 RB (Rec: 05/28/22 16:06 RB [id number]) POCT Blood Glucose POCT Glucose (Last Value) 113 mg/dL (74 to 106) H [facility] Injection Site Document 05/28/22 16:06 RB (Rec: 05/28/22 16:06 RB [id number]) Injection Site MAR Injection Site Left Lower Quad Admin: 05/28/22 11:30 Dose: 6 unit Documented by: RB [facility] GLUCOSE CHECK Document 05/28/22 11:30 RB (Rec: 05/28/22 11:30 RB [id number]) POCT Blood Glucose POCT Glucose (Last Value) 163 mg/dL (74 to 106) H [facility] Injection Site Document 05/28/22 11:30 RB (Rec: 05/28/22 11:30 RB [id number]) Injection Site MAR Injection Site Left Lower Quad Levothyroxine Sodium (Levothyroxine Sodium 25 Mcg Tablet) 25 mcg PO DAILY CORNELIA Stop: 06/27/22 09:59 Last Admin: 05/29/22 09:33 Dose: 25 mcg Documented by: Admin: 05/28/22 09:56 Dose: 25 mcg Documented by: SARAH Loperamide HCl (Loperamide Hcl 2 Mg Capsule) 4 mg PO PRN PRN PRN Reason: DIARRHEA Stop: 06/27/22 08:58 Last Admin: 05/28/22 22:28 Dose: 4 mg Documented by: Melatonin (Melatonin 3 Mg Tablet) 9 mg PO QHS CORNELIA Stop: 06/27/22 21:59 Last Admin: 05/28/22 22:29 Dose: 9 mg Documented by: Metoprolol Tartrate (Metoprolol Tartrate 25 Mg Tab) 25 mg PO BID CORNELIA Stop: 06/27/22 09:59 Last Admin: 05/29/22 09:30 Dose: 25 mg Documented by: Admin: 05/28/22 22:34 Dose: 25 mg Documented by: Admin: 05/28/22 10:01 Dose: Not Given Documented by: SARAH Non-Admin Reason: Decreased Blood Pressure Comments: 102/44 BP AT THIS TIME Miscellaneous Information (Medication Intervention 1 Each Each) 1 each MC .RN TO CHECK CORNELIA Stop: 06/27/22 09:44 Morphine Sulfate (Morphine Sulfate 2 Mg/Ml Inj) 2 mg IV Q4H PRN PRN PRN Reason: PAIN Stop: 06/02/22 01:30 Last Admin: 05/29/22 08:24 Dose: 2 mg Documented by: SARAH COFFMAN PAIN Document 05/29/22 08:24 SARAH (Rec: 05/29/22 08:24 SARAH [id number]) Reassesment Pain Site Bilateral Location Leg Pain Scale Used 0-10 Pain Scale Pain Intensity (0-10) 6 Re-Assess: Pain Reassessment Document 05/29/22 08:54 TONNY (Rec: 05/29/22 10:30 TONNY [id number]) Pain Description Pain Scale Used 0-10 Pain Scale Pain Intensity (0-10) 4 Comment Patient states they still hurt but are feeling a little better Multivitamins (Vitamin B Complex With Vit. C Tablet) 1 tab PO DAILY CORNELIA Stop: 06/27/22 09:59 Last Admin: 05/29/22 09:33 Dose: 1 tab Documented by: Admin: 05/28/22 09:59 Dose: 1 tab Documented by: SARAH Nitroglycerin (Nitroglycerin 0.4 Mg Tablet Bottle) 0.4 mg SL UD PRN Stop: 06/27/22 08:59 Nystatin (Nystatin 15 Gm Powder) 0 gm TP TID CORNELIA Stop: 06/27/22 09:59 Last Admin: 05/29/22 09:31 Dose: 15 gm Documented by: TONNY MAR TOPICAL APPLICATION SITE Document 05/29/22 09:31 TONNY (Rec: 05/29/22 09:32 TONNY [id number]) Application Site Applied to: Left Upper Chest,Left Lower Abdomen,Right Upper Chest, Right Lower Abdomen Admin: 05/28/22 22:29 Dose: 15 gm Documented by: MS COFFMAN TOPICAL APPLICATION SITE Document 05/28/22 22:29 MS (Rec: 05/28/22 22:29 MS [id number]) Application Site Applied to: Left Lower Abdomen,Right Lower Abdomen Other abd fold Admin: 05/28/22 15:19 Dose: 1 gm Documented by: RIZWAN MAR TOPICAL APPLICATION SITE Document 05/28/22 15:19 AW (Rec: 05/28/22 15:19 AW [id number]) Application Site Applied to: Left Lower Abdomen,Right Lower Abdomen Admin: 05/28/22 09:56 Dose: 1 gm Documented by: SARAH COFFMAN TOPICAL APPLICATION SITE Document 05/28/22 09:56 RB (Rec: 05/28/22 09:57 RB [id number]) Application Site Applied to: Left Lower Abdomen,Right Lower Abdomen Ondansetron HCl (Ondansetron Hcl 4 Mg/2 Ml Vial) 4 mg IV Q6H PRN PRN PRN Reason: NAUSEA/VOMITING Stop: 06/27/22 01:30 Last Admin: 05/28/22 20:16 Dose: 4 mg Documented by: Oxybutynin Chloride (Oxybutynin Chloride 5 Mg Tablet) 5 mg PO BID CORNELIA Stop: 06/27/22 09:59 Last Admin: 05/29/22 09:29 Dose: 5 mg Documented by: Admin: 05/28/22 22:28 Dose: 5 mg Documented by: Admin: 05/28/22 09:49 Dose: 5 mg Documented by: SARAH Pantoprazole Sodium (Pantoprazole 40 Mg Vial) 40 mg IV Q24H10 CORNELIA Stop: 06/27/22 09:59 Last Admin: 05/29/22 09:32 Dose: 40 mg Documented by: Admin: 05/28/22 09:49 Dose: 40 mg Documented by: SARAH Pramipexole Dihydrochloride (Pramipexole Di-Hcl 0.5 Mg Tab) 1 mg PO TID CORNELIA Stop: 06/27/22 09:59 Last Admin: 05/29/22 09:31 Dose: 1 mg Documented by: Admin: 05/28/22 22:28 Dose: 1 mg Documented by: Admin: 05/28/22 15:18 Dose: 1 mg Documented by: Admin: 05/28/22 09:47 Dose: 1 mg Documented by: RB Rivaroxaban (Rivaroxaban 10 Mg Tablet) 15 mg PO EVENING MEAL CORNELIA Stop: 06/27/22 17:59 Last Admin: 05/28/22 17:55 Dose: 15 mg Documented by: RB Ropinirole HCl (Ropinirole Hcl 0.5 Mg Tablet) 0.5 mg PO TID CORNELIA Stop: 06/27/22 09:59 Last Admin: 05/29/22 09:32 Dose: 0.5 mg Documented by: Admin: 05/28/22 22:28 Dose: 0.5 mg Documented by: Admin: 05/28/22 15:18 Dose: 0.5 mg Documented by: Admin: 05/28/22 09:46 Dose: 0.5 mg Documented by: SARAH Simvastatin (Simvastatin 20 Mg Tablet) 40 mg PO HS CORNELIA Stop: 06/27/22 21:59 Last Admin: 05/28/22 22:29 Dose: 40 mg Documented by: Discontinued Medications Albuterol/Ipratropium (Ipratropium/Albuterol Sulfate 3 Ml Ampul.Neb) 3 ml IH Q4HPRN PRN PRN Reason: SHORTNESS OF BREATH/WHEEZING Stop: 06/27/22 01:30 Aspirin (Aspirin 81 Mg Tablet.Ec) 81 mg PO DAILY CORNELIA Stop: 06/27/22 09:59 Last Admin: 05/28/22 10:01 Dose: Not Given Documented by: RB Non-Admin Reason: DR ORDER DUE TO PROCEDURE ON Jun.01 Ciclopirox Olamine (Ciclopirox Olamine 15 Gm Tube Cream) 0 gm TOP HS CORNELIA Stop: 06/27/22 21:59 Last Admin: 05/28/22 20:52 Dose: 15 gm Documented by: MS COFFMAN TOPICAL APPLICATION SITE Document 05/28/22 20:52 (Rec: 05/28/22 20:53 [id number]) Application Site Other bilateral lower legs Admin: 05/28/22 20:52 Dose: 15 gm Documented by: MS Comments: bilateral legs MAR TOPICAL APPLICATION SITE Document 05/28/22 20:52 MS (Rec: 05/28/22 20:52 MS [id number]) Application Site Other lower legs Clindamycin HCl/Dextrose (Clindamycin-D5w 600 Mg/50 Ml) 600 mg in 50 mls @ 100 mls/hr IV STAT STA Stop: 05/27/22 22:37 Last Admin: 05/27/22 23:25 Dose: 100 ml/hr, 100 mls/hr Documented by: MARLYS Med Admininistration (IV,IVP) Document 05/27/22 23:25 ASC (Rec: 05/27/22 23:25 ASC [id number]) Type of Administration Initial IV Push No Infusion/Titration Document 05/27/22 23:25 ASC (Rec: 05/27/22 23:25 ASC [id number]) Dosing & Rate Titration Dose 100 IV Rate 100 Increase/Decrease Started IV Intake Container Volume 50 Volume Adjustment/Waste 0 Piperacillin Sod/Tazobactam (Sod 3.375 gm/ Sodium Chloride) 100 mls @ 200 mls/hr IV STAT ONE Stop: 05/27/22 22:37 Last Admin: 05/28/22 00:01 Dose: 200 mls/hr Documented by: TONNY Med Admininistration (IV,IVP) Document 05/28/22 00:01 TONNY (Rec: 05/28/22 00:02 TONNY [id number]) Type of Administration Initial IV Push No Sodium Chloride (Sodium Chloride 100ml Mini-Bag Plus) Confirm Administered Dose 100 mls @ ud IV .STK-MED ONE Stop: 05/27/22 23:22 Clindamycin HCl/Dextrose (Clindamycin-D5w 600 Mg/50 Ml) Confirm Administered Dose 600 mg in 50 mls @ ud IV .STK-MED ONE Stop: 05/27/22 23:22 Morphine Sulfate (Morphine Sulfate 2 Mg/Ml Inj) 2 mg IV STAT ONE Stop: 05/27/22 22:16 Last Admin: 05/27/22 23:25 Dose: 2 mg Documented by: ASC Med Admininistration (IV,IVP) Document 05/27/22 23:25 ASC (Rec: 05/27/22 23:25 ASC [id number]) Type of Administration Initial IV Push No IV Push-Addtl Different Drug Yes MAR PAIN Document 05/27/22 23:25 ASC (Rec: 05/27/22 23:25 ASC [id number]) Reassesment Pain Scale Used 0-10 Pain Scale Pain Intensity (0-10) 6 Morphine Sulfate (Morphine Sulfate 2 Mg/Ml Inj) Confirm Administered Dose 2 mg .ROUTE .STK-MED ONE Stop: 05/27/22 23:21 Ondansetron HCl (Ondansetron Hcl 4 Mg/2 Ml Vial) 4 mg IV STAT ONE Stop: 05/27/22 22:16 Last Admin: 05/27/22 23:26 Dose: 4 mg Documented by: ASC Med Admininistration (IV,IVP) Document 05/27/22 23:26 [facility] (Rec: 05/27/22 23:26 ASC [id number]) Type of Administration Initial IV Push Yes Ondansetron HCl (Ondansetron Hcl 4 Mg/2 Ml Vial) Confirm Administered Dose 4 mg .ROUTE .STK-MED ONE Stop: 05/27/22 23:21 Piperacillin Sod/Tazobactam Sod (Piperacillin/Tazobactam Sodium 3.375 Gm Vial) Confirm Administered Dose 3.375 gm IV .STK-MED ONE Stop: 05/27/22 23:22 Triamcinolone Acetonide (Triamcinolone Acetonide 60 Ml Lotion) 0 ml TP QHS CORNELIA Stop: 06/27/22 21:59 Last Admin: 05/28/22 22:34 Dose: 60 ml Documented by: MS COFFMAN TOPICAL APPLICATION SITE Document 05/28/22 22:34 MS (Rec: 05/28/22 22:34 MS [id number]) Application Site Other bilateral lower legs Code(s): A49.02 - METHICILLIN RESIS STAPH INFECTION, UNSP SITE (2) Bilateral lower leg cellulitis Current Visit: Yes Status: Acute Assessment & Plan: Chief Complaint Diagnosis both lower leg swelling and ulcers Allergies Allergy/AdvReac Type Severity Reaction Status Date / Time No Known Drug Allergies Allergy Verified 05/27/22 20:42 Vital Signs (Last 24 hours) Temp Pulse Resp BP Pulse Ox 05/29/22 12:00 97.7 F 80 16 156/86 95 05/29/22 07:44 97.6 F 66 18 118/62 90 L 05/29/22 04:00 98.7 F 78 20 118/57 96 05/28/22 23:55 98.4 F 80 17 125/61 96 05/28/22 20:00 98.3 F 73 20 119/59 96 05/28/22 16:00 97.6 F 64 19 108/60 94 L Home Medications Medication Instructions Recorded Confirmed Last Taken Type Ropinirole HCl 0.5 mg [Requip 0.5 mg PO TID 05/28/22 05/28/22 Unknown History 0.5 MG] Current Medications Generic Name Dose Route Start Last Admin Trade Name Freq PRN Reason Stop Dose Admin Acetaminophen 650 mg 05/28/22 01:31 Acetaminophen 325 Mg Tablet PO 06/27/22 01:30 Q4H PRN PRN PAIN AND/OR FEVER Allopurinol 100 mg 05/28/22 10:00 05/29/22 09:34 Allopurinol 100 Mg Tablet PO 06/27/22 09:59 100 mg DAILY CORNELIA Administration Amitriptyline HCl 10 mg 05/28/22 10:00 05/29/22 09:29 Amitriptyline Hcl 10 Mg Tablet PO 06/27/22 09:59 10 mg DAILY CORNELIA Administration Lipase/Protease/Amylase 5 each 05/28/22 11:30 05/29/22 11:31 Lipase/Protease/Amylase 1 Each Capsule.Dr PO 06/27/22 11:29 5 each AC CORNELIA Administration Balsam Mary/[place] Oil 0 gm 05/28/22 10:00 05/28/22 09:58 Balsam Mary/[place] Oil 30 Gm Oint...G. TP 06/27/22 09:59 1 gm DAILY CORNELIA Administration Calcium Carbonate 1 tab 05/28/22 10:00 05/29/22 09:29 Calcium Carbonate 500 Mg/Vitamin D 1 Tab Tablet PO 06/27/22 09:59 1 tab DAILY CORNELIA Administration Divalproex Sodium 250 mg 05/28/22 10:00 05/29/22 09:29 Divalproex Sodium 250 Mg Tablet Delayed Release PO 06/27/22 09:59 250 mg DAILY CORNELIA Administration Divalproex Sodium 500 mg 05/28/22 18:00 05/28/22 17:57 Divalproex Sodium 250 Mg Tablet Delayed Release PO 06/27/22 17:59 500 mg EVENING MEAL CORNELIA Administration Duloxetine HCl 90 mg 05/28/22 10:00 05/29/22 09:29 Duloxetine Hcl 30 Mg Cap PO 06/27/22 09:59 90 mg DAILY CORNELIA Administration Furosemide 80 mg 05/28/22 09:00 05/29/22 08:16 Furosemide 40 Mg Tablet PO 06/27/22 08:59 80 mg 0800 CORNELIA Administration Furosemide 40 mg 05/28/22 12:00 05/29/22 12:20 Furosemide 40 Mg Tablet PO 06/27/22 11:59 40 mg LUNCH CORNELIA Administration Piperacillin Sod/Tazobactam 100 mls @ 200 mls/hr 05/28/22 01:31 05/29/22 12:21 Sod 3.375 gm/ Sodium Chloride IV 05/31/22 01:30 200 mls/hr Q6HT CORNELAI Administration Clindamycin Phosphate 300 mg in 50 mls @ 100 mls/hr 05/28/22 01:31 05/29/22 12:19 Clindamycin Phosphate Ivpb IV 06/27/22 01:30 100 mls/hr Q6HT CORNELIA Administration Insulin Glargine 30 unit 05/28/22 10:00 05/29/22 09:30 Insulin Glargine 1 Unit SQ 06/27/22 09:59 30 unit QAM CORNELIA Administration Insulin Human Lispro 0 unit 05/28/22 01:31 05/29/22 08:10 Insulin Lispro 1 Unit SQ 06/27/22 01:30 3 unit UD PRN Administration HYPERGLYCEMIA Insulin Human Lispro 6 unit 05/28/22 11:30 05/29/22 11:30 Insulin Lispro 1 Unit SQ 06/27/22 11:29 6 unit AC CORNELIA Administration Levothyroxine Sodium 25 mcg 05/28/22 10:00 05/29/22 09:33 Levothyroxine Sodium 25 Mcg Tablet PO 06/27/22 09:59 25 mcg DAILY CORNELIA Administration Loperamide HCl 4 mg 05/28/22 08:59 05/28/22 22:28 Loperamide Hcl 2 Mg Capsule PO 06/27/22 08:58 4 mg PRN PRN Administration DIARRHEA Melatonin 9 mg 05/28/22 22:00 05/28/22 22:29 Melatonin 3 Mg Tablet PO 06/27/22 21:59 9 mg QHS CORNELIA Administration Metoprolol Tartrate 25 mg 05/28/22 10:00 05/29/22 09:30 Metoprolol Tartrate 25 Mg Tab PO 06/27/22 09:59 25 mg BID CORNELIA Administration Miscellaneous Information 1 each 05/28/22 09:45 Medication Intervention 1 Each Each 06/27/22 09:44 .RN TO CHECK CORNELIA Morphine Sulfate 2 mg 05/28/22 01:31 05/29/22 08:24 Morphine Sulfate 2 Mg/Ml Inj IV 06/02/22 01:30 2 mg Q4H PRN PRN Administration PAIN Multivitamins 1 tab 05/28/22 10:00 05/29/22 09:33 Vitamin B Complex With Vit. C Tablet PO 06/27/22 09:59 1 tab DAILY CORNELIA Administration Nitroglycerin 0.4 mg 05/28/22 09:00 Nitroglycerin 0.4 Mg Tablet Bottle SL 06/27/22 08:59 UD PRN Nystatin 0 gm 05/28/22 10:00 05/29/22 09:31 Nystatin 15 Gm Powder TP 06/27/22 09:59 15 gm TID CORNELIA Administration Ondansetron HCl 4 mg 05/28/22 01:31 05/28/22 20:16 Ondansetron Hcl 4 Mg/2 Ml Vial IV 06/27/22 01:30 4 mg Q6H PRN PRN Administration NAUSEA/VOMITING Oxybutynin Chloride 5 mg 05/28/22 10:00 05/29/22 09:29 Oxybutynin Chloride 5 Mg Tablet PO 06/27/22 09:59 5 mg BID CORNELIA Administration Pantoprazole Sodium 40 mg 05/28/22 10:00 05/29/22 09:32 Pantoprazole 40 Mg Vial IV 06/27/22 09:59 40 mg Q24H10 CORNELIA Administration Pramipexole Dihydrochloride 1 mg 05/28/22 10:00 05/29/22 09:31 Pramipexole Di-Hcl 0.5 Mg Tab PO 06/27/22 09:59 1 mg TID CORNELIA Administration Rivaroxaban 15 mg 05/28/22 18:00 05/28/22 17:55 Rivaroxaban 10 Mg Tablet PO 06/27/22 17:59 15 mg EVENING MEAL CORNELIA Administration Ropinirole HCl 0.5 mg 05/28/22 10:00 05/29/22 09:32 Ropinirole Hcl 0.5 Mg Tablet PO 06/27/22 09:59 0.5 mg TID CORNELIA Administration Simvastatin 40 mg 05/28/22 22:00 05/28/22 22:29 Simvastatin 20 Mg Tablet PO 06/27/22 21:59 40 mg HS CORNELIA Administration Discontinued Medications Generic Name Dose Route Start Last Admin Trade Name Freq PRN Reason Stop Dose Admin Albuterol/Ipratropium 3 ml 05/28/22 01:31 Ipratropium/Albuterol Sulfate 3 Ml Ampul.Neb IH 06/27/22 01:30 Q4HPRN PRN SHORTNESS OF BREATH/WHEEZING Aspirin 81 mg 05/28/22 10:00 05/28/22 10:01 Aspirin 81 Mg Tablet.Ec PO 06/27/22 09:59 Not Given DAILY CORNELIA Ciclopirox Olamine 0 gm 05/28/22 22:00 05/28/22 20:52 Ciclopirox Olamine 15 Gm Tube Cream TOP 06/27/22 21:59 15 gm HS CORNELIA Administration Clindamycin HCl/Dextrose 600 mg in 50 mls @ 100 mls/hr 05/27/22 22:08 05/27/22 23:25 Clindamycin-D5w 600 Mg/50 Ml IV 05/27/22 22:37 100 ml/hr STAT STA 100 mls/hr Administration Piperacillin Sod/Tazobactam 100 mls @ 200 mls/hr 05/27/22 22:08 05/28/22 00:01 Sod 3.375 gm/ Sodium Chloride IV 05/27/22 22:37 200 mls/hr STAT ONE Administration Sodium Chloride Confirm 05/27/22 23:21 Sodium Chloride 100ml Mini-Bag Plus Administered 05/27/22 23:22 Dose 100 mls @ ud IV .STK-MED ONE Clindamycin HCl/Dextrose Confirm 05/27/22 23:21 Clindamycin-D5w 600 Mg/50 Ml Administered 05/27/22 23:22 Dose 600 mg in 50 mls @ ud IV .STK-MED ONE Morphine Sulfate 2 mg 05/27/22 22:15 05/27/22 23:25 Morphine Sulfate 2 Mg/Ml Inj IV 05/27/22 22:16 2 mg STAT ONE Administration Morphine Sulfate Confirm 05/27/22 23:20 Morphine Sulfate 2 Mg/Ml Inj Administered 05/27/22 23:21 Dose 2 mg .ROUTE .STK-MED ONE Ondansetron HCl 4 mg 05/27/22 22:15 05/27/22 23:26 Ondansetron Hcl 4 Mg/2 Ml Vial IV 05/27/22 22:16 4 mg STAT ONE Administration Ondansetron HCl Confirm 05/27/22 23:20 Ondansetron Hcl 4 Mg/2 Ml Vial Administered 05/27/22 23:21 Dose 4 mg .ROUTE .STK-MED ONE Piperacillin Sod/Tazobactam Sod Confirm 05/27/22 23:21 Piperacillin/Tazobactam Sodium 3.375 Gm Vial Administered 05/27/22 23:22 Dose 3.375 gm IV .STK-MED ONE Triamcinolone Acetonide 0 ml 05/28/22 22:00 05/28/22 22:34 Triamcinolone Acetonide 60 Ml Lotion TP 06/27/22 21:59 60 ml QHS CORNELIA Administration Intake & Output (Last 24 hours) 05/27/22 05/28/22 05/29/22 05/30/22 11:59 11:59 11:59 11:59 Intake Total 240 2170 Output Total 1000 Balance 240 1170 Weight 127 kg 125.1 kg Microbiology Results (Last 24 hours) 05/27/22 21:20 Blood Blood Culture Gram Stain - Pending 05/27/22 21:20 Blood Blood Culture - Preliminary NO GROWTH TO DATE 05/27/22 21:15 Blood Blood Culture Gram Stain - Pending 05/27/22 21:15 Blood Blood Culture - Preliminary NO GROWTH TO DATE Laboratory Results (Last 24 hours) 05/29/22 05/29/22 05/29/22 11:54 07:36 04:58 POC Glucometer 94 161 H Urinalys Dipstick Clnc MAIN LAB Urine Color YELLOW Urine Appearance CLEAR Urine pH 5.5 Ur Specific [place] 1.020 POC Urine Protein Conf NEGATIVE Urine Ketones NEGATIVE Urine Nitrite NEGATIVE Urine Bilirubin NEGATIVE Urine Urobilinogen 0.2 Urine Leukocytes NEGATIVE Urine WBC (Auto) 0-2 Urine RBC (Auto) NONE U Epithel Cells (Auto) RARE Urine Bacteria (Auto) RARE Urine RBC NEGATIVE Ur Culture Indicated? NO Urine Glucose NEGATIVE 05/28/22 05/28/22 21:15 16:00 POC Glucometer 115 H 113 H Urinalys Dipstick Clnc Urine Color Urine Appearance Urine pH Ur Specific [place] POC Urine Protein Conf Urine Ketones Urine Nitrite Urine Bilirubin Urine Urobilinogen Urine Leukocytes Urine WBC (Auto) Urine RBC (Auto) U Epithel Cells (Auto) Urine Bacteria (Auto) Urine RBC Ur Culture Indicated? Urine Glucose Orders (Last 24 hours) Category Date Time Status POCT GLUCOSE Stat Lab 05/28/22 16:00 Completed POCT GLUCOSE Stat Lab 05/28/22 21:15 Completed POCT GLUCOSE Stat Lab 05/29/22 07:36 Completed POCT GLUCOSE Stat Lab 05/29/22 11:54 Completed UA W/RFX CULTURE Stat Lab 05/29/22 04:58 Completed Ciclopirox Olamine Cream [Loprox CREAM] Med 05/28/22 22:00 Discontinued See Dose Instructions TOP HS Divalproex Sodium 250 mg [Divalproex DR 250 mg Tab] Med 05/28/22 18:00 Active 500 mg PO EVENING MEAL Melatonin Med 05/28/22 22:00 Active 9 mg PO QHS Rivaroxaban 10 mg Tablet [Xarelto 10 mg Tablet] Med 05/28/22 18:00 Active 15 mg PO EVENING MEAL Simvastatin 20Mg [Zocor 20Mg] Med 05/28/22 22:00 Active 40 mg PO HS Triamcinolone 0.1% Lotion [Kenalog 0.1% Lotion] Med 05/28/22 22:00 Discontinued 0 ml TP QHS Code(s): L03.116 - CELLULITIS OF LEFT LOWER LIMB; L03.115 - CELLULITIS OF RIGHT LOWER LIMB (3) Ulcer of extremity due to chronic venous insufficiency Current Visit: Yes Status: Chronic Code(s): L98.499 - NON-PRESSURE CHRONIC ULCER OF SKIN OF SITES W UNSP SEVERITY; I87.2 - VENOUS INSUFFICIENCY (CHRONIC) (PERIPHERAL) (4) Diabetes mellitus type II, controlled Current Visit: Yes Status: Chronic Qualifiers: Diabetes mellitus buttermaker continuous churn insulin use: with penitentiary use Diabetes mellitus complication status: with skin complications Diabetes mellitus complication detail: with foot ulcer Qualified Code(s): E11.621 - Type 2 diabetes mellitus with foot ulcer; L97.509 - Non-pressure chronic ulcer of other part of unspecified foot with unspecified severity; Z79.4 - shelter (current) use of insulin Code(s): E11.9 - TYPE 2 DIABETES MELLITUS WITHOUT COMPLICATIONS (5) Paroxysmal atrial fibrillation Current Visit: Yes Status: Chronic Code(s): I48.0 - PAROXYSMAL ATRIAL FIBRILLATION
[2022-05-29] MEDS: VENELEX OINTMENT TP SCH (16:51)
[2022-05-29] MEDS: XARELTO 10 MG TABLET PO SCH (17:00)
[2022-05-29] MEDS: ZOCOR 20MG PO SCH (21:10)
[2022-05-29] MEDS: MELATONIN PO SCH (21:10)
[2022-05-30] MEDS: PIPERACILLIN/TAZOBACTAM 3.375 GM in Sodium Chloride 100ML MINI-BAG PLUS 100 ML IV SCH (06:06)
[2022-05-30] MEDS: ClINDAMYCIN Phosphate IVPB 300 MG/50 ML IVPB IV SCH ×2 (06:38→11:47)
[2022-05-30] MEDS: ZENPEP DR 5,000 UNIT CAPSULE PO SCH ×2 (08:07→11:46)
[2022-05-30] MEDS: Lasix 40 MG PO SCH ×2 (08:07→11:46)
[2022-05-30] MEDS: HUMALOG SQ SCH ×2 (08:07→11:46)
--- NOTE | 2022-05-30 09:48 | PCM.DS ---
Discharge Summary Date of Admission: 05/28/22 01:21 Admitting Physician: RUFINO RESENDIZ Consults: Consults on Case 05/29/22 16:33 Consult Podiatry ROUTINE Primary Care Provider: JONI HEWITT Allergies Allergies No Known Drug Allergies Allergy (Verified 05/27/22 20:42) Hospital Summary - Hospital Course Hospital Course: Chief Complaint Diagnosis both lower leg swelling and ulcers Allergies Allergy/AdvReac Type Severity Reaction Status Date / Time No Known Drug Allergies Allergy Verified 05/27/22 20:42 Vital Signs (Last 24 hours) Temp Pulse Resp BP Pulse Ox 05/30/22 07:52 98.0 F 86 16 112/63 93 L 05/30/22 03:47 96.9 F 86 16 119/73 97 05/29/22 23:41 98.2 F 67 18 93/50 96 05/29/22 19:26 97.8 F 72 20 105/52 97 05/29/22 16:00 97 F 62 18 142/89 96 05/29/22 12:00 97.7 F 80 16 156/86 95 Home Medications Medication Instructions Recorded Confirmed Last Taken Type Ropinirole HCl 0.5 mg [Requip 0.5 mg PO TID 05/28/22 05/28/22 Unknown History 0.5 MG] Current Medications Generic Name Dose Route Start Last Admin Trade Name Freq PRN Reason Stop Dose Admin Acetaminophen 650 mg 05/28/22 01:31 Acetaminophen 325 Mg Tablet PO 06/27/22 01:30 Q4H PRN PRN PAIN AND/OR FEVER Allopurinol 100 mg 05/28/22 10:00 05/29/22 09:34 Allopurinol 100 Mg Tablet PO 06/27/22 09:59 100 mg DAILY CORNELIA Administration Amitriptyline HCl 10 mg 05/28/22 10:00 05/29/22 09:29 Amitriptyline Hcl 10 Mg Tablet PO 06/27/22 09:59 10 mg DAILY CORNELIA Administration Lipase/Protease/Amylase 5 each 05/28/22 11:30 05/30/22 08:07 Lipase/Protease/Amylase 1 Each Capsule.Dr PO 06/27/22 11:29 5 each AC CORNELIA Administration Balsam Mary/Lodi Oil 0 gm 05/28/22 10:00 05/29/22 16:51 Balsam Zalma/Lodi Oil 30 Gm Oint...G. TP 06/27/22 09:59 1 gm DAILY CORNELIA Administration Calcium Carbonate 1 tab 05/28/22 10:00 05/29/22 09:29 Calcium Carbonate 500 Mg/Vitamin D 1 Tab Tablet PO 06/27/22 09:59 1 tab DAILY CORNELIA Administration Divalproex Sodium 250 mg 05/28/22 10:00 05/29/22 09:29 Divalproex Sodium 250 Mg Tablet Delayed Release PO 06/27/22 09:59 250 mg DAILY CORNELIA Administration Divalproex Sodium 500 mg 05/28/22 18:00 05/29/22 17:00 Divalproex Sodium 250 Mg Tablet Delayed Release PO 06/27/22 17:59 500 mg EVENING MEAL CORNELIA Administration Duloxetine HCl 90 mg 05/28/22 10:00 05/29/22 09:29 Duloxetine Hcl 30 Mg Cap PO 06/27/22 09:59 90 mg DAILY CORNELIA Administration Furosemide 80 mg 05/28/22 09:00 05/30/22 08:07 Furosemide 40 Mg Tablet PO 06/27/22 08:59 80 mg 0800 CORNELIA Administration Furosemide 40 mg 05/28/22 12:00 05/29/22 12:20 Furosemide 40 Mg Tablet PO 06/27/22 11:59 40 mg LUNCH CORNELIA Administration Piperacillin Sod/Tazobactam 100 mls @ 200 mls/hr 05/28/22 01:31 05/30/22 06:06 Sod 3.375 gm/ Sodium Chloride IV 05/31/22 01:30 200 mls/hr Q6HT CORNELIA Administration Clindamycin Phosphate 300 mg in 50 mls @ 100 mls/hr 05/28/22 01:31 05/30/22 06:38 Clindamycin Phosphate Ivpb IV 06/27/22 01:30 100 mls/hr Q6HT CORNELIA Administration Insulin Glargine 30 unit 05/28/22 10:00 05/29/22 09:30 Insulin Glargine 1 Unit SQ 06/27/22 09:59 30 unit QAM CORNELIA Administration Insulin Human Lispro 0 unit 05/28/22 01:31 05/29/22 08:10 Insulin Lispro 1 Unit SQ 06/27/22 01:30 3 unit UD PRN Administration HYPERGLYCEMIA Insulin Human Lispro 6 unit 05/28/22 11:30 05/30/22 08:07 Insulin Lispro 1 Unit SQ 06/27/22 11:29 6 unit AC CORNELIA Administration Levothyroxine Sodium 25 mcg 05/28/22 10:00 05/29/22 09:33 Levothyroxine Sodium 25 Mcg Tablet PO 06/27/22 09:59 25 mcg DAILY CORNELIA Administration Loperamide HCl 4 mg 05/28/22 08:59 05/28/22 22:28 Loperamide Hcl 2 Mg Capsule PO 06/27/22 08:58 4 mg PRN PRN Administration DIARRHEA Melatonin 9 mg 05/28/22 22:00 05/29/22 21:10 Melatonin 3 Mg Tablet PO 06/27/22 21:59 9 mg QHS CORNELIA Administration Metoprolol Tartrate 25 mg 05/28/22 10:00 05/29/22 21:10 Metoprolol Tartrate 25 Mg Tab PO 06/27/22 09:59 25 mg BID CORNELIA Administration Miscellaneous Information 1 each 05/28/22 09:45 Medication Intervention 1 Each Each 06/27/22 09:44 .RN TO CHECK CORNELIA Morphine Sulfate 2 mg 05/28/22 01:31 05/29/22 16:29 Morphine Sulfate 2 Mg/Ml Inj IV 06/02/22 01:30 2 mg Q4H PRN PRN Administration PAIN Multivitamins 1 tab 05/28/22 10:00 05/29/22 09:33 Vitamin B Complex With Vit. C Tablet PO 06/27/22 09:59 1 tab DAILY CORNELIA Administration Nitroglycerin 0.4 mg 05/28/22 09:00 Nitroglycerin 0.4 Mg Tablet Bottle SL 06/27/22 08:59 UD PRN Nystatin 0 gm 05/28/22 10:00 05/29/22 23:53 Nystatin 15 Gm Powder TP 06/27/22 09:59 1 gm TID CORNELIA Administration Ondansetron HCl 4 mg 05/28/22 01:31 05/28/22 20:16 Ondansetron Hcl 4 Mg/2 Ml Vial IV 06/27/22 01:30 4 mg Q6H PRN PRN Administration NAUSEA/VOMITING Oxybutynin Chloride 5 mg 05/28/22 10:00 05/29/22 21:11 Oxybutynin Chloride 5 Mg Tablet PO 06/27/22 09:59 5 mg BID CORNELIA Administration Pantoprazole Sodium 40 mg 05/28/22 10:00 05/29/22 09:32 Pantoprazole 40 Mg Vial IV 06/27/22 09:59 40 mg Q24H10 CORNELIA Administration Pramipexole Dihydrochloride 1 mg 05/28/22 10:00 05/29/22 21:10 Pramipexole Di-Hcl 0.5 Mg Tab PO 06/27/22 09:59 1 mg TID CORNELIA Administration Rivaroxaban 15 mg 05/28/22 18:00 05/29/22 17:00 Rivaroxaban 10 Mg Tablet PO 06/27/22 17:59 15 mg EVENING MEAL CORNELIA Administration Ropinirole HCl 0.5 mg 05/28/22 10:00 05/29/22 21:10 Ropinirole Hcl 0.5 Mg Tablet PO 06/27/22 09:59 0.5 mg TID CORNELIA Administration Simvastatin 40 mg 05/28/22 22:00 05/29/22 21:10 Simvastatin 20 Mg Tablet PO 06/27/22 21:59 40 mg HS CORNELIA Administration Discontinued Medications Generic Name Dose Route Start Last Admin Trade Name Freq PRN Reason Stop Dose Admin Albuterol/Ipratropium 3 ml 05/28/22 01:31 Ipratropium/Albuterol Sulfate 3 Ml Ampul.Neb IH 06/27/22 01:30 Q4HPRN PRN SHORTNESS OF BREATH/WHEEZING Aspirin 81 mg 05/28/22 10:00 05/28/22 10:01 Aspirin 81 Mg Tablet.Ec PO 06/27/22 09:59 Not Given DAILY CORNELIA Ciclopirox Olamine 0 gm 05/28/22 22:00 05/28/22 20:52 Ciclopirox Olamine 15 Gm Tube Cream TOP 06/27/22 21:59 15 gm HS CORNELIA Administration Clindamycin HCl/Dextrose 600 mg in 50 mls @ 100 mls/hr 05/27/22 22:08 05/27/22 23:25 Clindamycin-D5w 600 Mg/50 Ml IV 05/27/22 22:37 100 ml/hr STAT STA 100 mls/hr Administration Piperacillin Sod/Tazobactam 100 mls @ 200 mls/hr 05/27/22 22:08 05/28/22 00:01 Sod 3.375 gm/ Sodium Chloride IV 05/27/22 22:37 200 mls/hr STAT ONE Administration Sodium Chloride Confirm 05/27/22 23:21 Sodium Chloride 100ml Mini-Bag Plus Administered 05/27/22 23:22 Dose 100 mls @ ud IV .STK-MED ONE Clindamycin HCl/Dextrose Confirm 05/27/22 23:21 Clindamycin-D5w 600 Mg/50 Ml Administered 05/27/22 23:22 Dose 600 mg in 50 mls @ ud IV .STK-MED ONE Morphine Sulfate 2 mg 05/27/22 22:15 05/27/22 23:25 Morphine Sulfate 2 Mg/Ml Inj IV 05/27/22 22:16 2 mg STAT ONE Administration Morphine Sulfate Confirm 05/27/22 23:20 Morphine Sulfate 2 Mg/Ml Inj Administered 05/27/22 23:21 Dose 2 mg .ROUTE .STK-MED ONE Ondansetron HCl 4 mg 05/27/22 22:15 05/27/22 23:26 Ondansetron Hcl 4 Mg/2 Ml Vial IV 05/27/22 22:16 4 mg STAT ONE Administration Ondansetron HCl Confirm 05/27/22 23:20 Ondansetron Hcl 4 Mg/2 Ml Vial Administered 05/27/22 23:21 Dose 4 mg .ROUTE .STK-MED ONE Piperacillin Sod/Tazobactam Sod Confirm 05/27/22 23:21 Piperacillin/Tazobactam Sodium 3.375 Gm Vial Administered 05/27/22 23:22 Dose 3.375 gm IV .STK-MED ONE Triamcinolone Acetonide 0 ml 05/28/22 22:00 05/28/22 22:34 Triamcinolone Acetonide 60 Ml Lotion TP 06/27/22 21:59 60 ml QHS CORNELIA Administration Intake & Output (Last 24 hours) 05/27/22 05/28/22 05/29/22 05/30/22 11:59 11:59 11:59 11:59 Intake Total 240 2170 3120 Output Total 1000 800 Balance 240 1170 2320 Weight 127 kg 125.1 kg 126.1 kg Microbiology Results (Last 24 hours) 05/27/22 21:20 Blood Blood Culture Gram Stain - Pending 05/27/22 21:20 Blood Blood Culture - Preliminary NO GROWTH TO DATE 05/27/22 21:15 Blood Blood Culture Gram Stain - Pending 05/27/22 21:15 Blood Blood Culture - Preliminary NO GROWTH TO DATE Laboratory Results (Last 24 hours) 05/30/22 05/29/22 05/29/22 07:21 20:50 16:32 POC Glucometer 143 H 122 H 113 H 05/29/22 11:54 POC Glucometer 94 Orders (Last 24 hours) Category Date Time Status Consult Podiatry ROUTINE Cons 05/29/22 16:33 Active POCT GLUCOSE Stat Lab 05/29/22 11:54 Completed POCT GLUCOSE Stat Lab 05/29/22 16:32 Completed POCT GLUCOSE Stat Lab 05/29/22 20:50 Completed POCT GLUCOSE Stat Lab 05/30/22 07:21 Completed PT Eval & Treat ( Order) ONCE PT 05/30/22 09:28 Active Patient Care Notes (Last 24 hours) 05/30/22 07:41 Nursing Note by Niki Peter PATIENT HAS DR WYNN CONSULT ORDERED, BUT HE IS OUT OF TOWN UNTIL 06-01-22 NURSE FELICITA NOTIFIED. TIAGO [id number] 05-30-22 Initialized on 05/30/22 07:41 - END OF NOTE 05/29/22 16:50 Nursing Note by Eugenia Blandon dressings changed. Initialized on 05/29/22 16:50 - END OF NOTE - Vitals & Intake/Output Vital Signs: Vital Signs Temperature 98.0 F 05/30/22 07:52 Pulse Rate 86 05/30/22 07:52 Respiratory Rate 16 05/30/22 07:52 Blood Pressure 112/63 05/30/22 07:52 O2 Sat by Pulse Oximetry 93 L 05/30/22 07:52 Intake & Output: Intake & Output 05/27/22 05/28/22 05/29/22 05/30/22 11:59 11:59 11:59 11:59 Intake Total 240 2170 3120 Output Total 1000 800 Balance 240 1170 2320 Weight 127 kg 125.1 kg 126.1 kg - Lab Result Diagrams: 05/28/22 06:04 05/28/22 06:04 Lab Results-Last 24 Hrs: Lab Results-Last 24 Hours 05/29/22 05/29/22 05/29/22 Range/Units 11:54 16:32 20:50 POC Glucometer 94 113 H 122 H (74 to 106) mg/dL 05/30/22 Range/Units 07:21 POC Glucometer 143 H (74 to 106) mg/dL Micro Results-Entire Visit: Microbiology 05/27/22 21:20 Blood Culture - Preliminary Blood NO GROWTH TO DATE 05/27/22 21:15 Blood Culture - Preliminary Blood NO GROWTH TO DATE Accuchecks Date 05/30/22 Date 05/29/22 Date 05/29/22 Time 07:53 Time 16:32 - Procedures and Test Procedures and Tests throughout Hospitalization: Therapy Orders & Screens 05/30/22 09:28 PT Eval & Treat ( Order) ONCE Reason for Eval:: WOUNDS TO BILATERAL LOWER EXTREMITIES Diagnosis: both lower leg swelling and ulcers Discharge Exam General Appearance: no apparent distress, alert Neurologic Exam: alert, oriented x 3, cooperative, normal mood/affect, nml cerebellar function, sensation nml, No motor deficits Eye Exam: PERRL, EOMI, eyes nml inspection Ears, Nose, Throat Exam: normal ENT inspection, pharynx normal, moist mucous membranes Neck Exam: normal inspection, non-tender, supple, full range of motion Respiratory Exam: normal breath sounds, lungs clear, No respiratory distress Cardiovascular Exam: regular rate/rhythm, normal heart sounds Gastrointestinal/Abdomen Exam: soft, No tenderness, No mass Pelvic Exam: deferred Rectal Exam: deferred Back Exam: normal inspection, normal range of motion, No CVA tenderness, No vertebral tenderness Extremity Exam: normal inspection, normal range of motion Skin Exam: normal color, warm, dry Wound Assessment: Skin/Wound Assessment Wound/Incision Assessment Start: 05/28/22 01:35 Text: Status: Active Freq: Q6H Protocol: Document 05/30/22 03:00 LB (Rec: 05/30/22 04:22 LB [id number]) Wound/Incision Assessment Anterior/Posterior Calf Wound Assessment Shift Assessment Wound Type cellulitis Wound Stage Non Pressure Wound Dressing Status Dry & Intact Topical Solution/Irrigant Medicated Ointment Packing Type Gauze Pads,Gauze Roll Primary Dressing Non-Adherent Gauze Pads Secondary Dressing Gauze Roll/Wrap Comment dressing to BLE CDI Wound Photo Photo Taken No Final Diagnosis/Problem List - Final Discharge Diagnosis/Problem (1) MRSA (methicillin resistant Staphylococcus aureus) infection Current Visit: Yes Status: Chronic Code(s): A49.02 - METHICILLIN RESIS STAPH INFECTION, UNSP SITE (2) Bilateral lower leg cellulitis Current Visit: Yes Status: Chronic Code(s): L03.116 - CELLULITIS OF LEFT LOWER LIMB; L03.115 - CELLULITIS OF RIGHT LOWER LIMB (3) Ulcer of extremity due to chronic venous insufficiency Current Visit: Yes Status: Chronic Code(s): L98.499 - NON-PRESSURE CHRONIC ULCER OF SKIN OF SITES W UNSP SEVERITY; I87.2 - VENOUS INSUFFICIENCY (CHRONIC) (PERIPHERAL) (4) Diabetes mellitus type II, controlled Current Visit: Yes Status: Chronic Code(s): E11.9 - TYPE 2 DIABETES MELLITUS WITHOUT COMPLICATIONS (5) Paroxysmal atrial fibrillation Current Visit: Yes Status: Chronic Code(s): I48.0 - PAROXYSMAL ATRIAL FIBRILLATION - Discharge Discharge Date: 05/30/22 Disposition: Home, Self-Care Condition: Stable Prescriptions: No Action Calcium Carb, Citrate/Vit D3 [Calcium + D3 ER Tablet] 1 tab PO DAILY Balsalazide Disodium 750 mg PO QHS Azelastine HCl 1 drop OP DAILY Aspirin EC 81 mg [Ecotrin 81 mg] 81 mg PO DAILY Allopurinol 100 mg [Zyloprim 100 mg] 100 mg PO DAILY Nitroglycerin 0.4 mg SL UD Metoprolol Tartrate 25 mg PO BID Insulin Lispro [Admelog Solostar] 6 unit SQ AC Furosemide 40 mg [Lasix 40 MG] 40 mg PO LUNCH Furosemide 80 mg PO DAILY Divalproex Sodium [Depakote] 500 mg PO EVENING MEAL Divalproex Sodium [Depakote] 250 mg PO DAILY Atorvastatin Calcium 80 mg PO QHS Duloxetine HCl [Cymbalta] 60 mg PO DAILY Duloxetine HCl 30 mg PO DAILY Vitamin B Complex 1 tab PO DAILY Rivaroxaban [Xarelto] 15 mg PO EVENING MEAL Pramipexole Di-HCl [Pramipexole Dihydrochloride] 1 mg PO TID Lipase/Protease/Amylase [Elvis Dr 24,000 Unit Capsule] 24,000 units PO AC Oxybutynin Chloride 5 mg PO BID Levothyroxine Sodium [Levothyroxine] 25 mcg PO DAILY Collagenase Oint [Santyl OINTMENT] 1 applic TOP DAILY Ciclopirox/Skin Cleanser No.28 [Ciclodan 0.77% Cream Kit] 1 applic TOP QHS Amitriptyline HCl 10 mg [Elavil 10 mg] 10 mg PO DAILY Triamcinolone 0.1% Lotion [Kenalog 0.1% Lotion] 1 applic TOP QHS Melatonin 10 mg PO QHS Insulin Detemir [Levemir] 30 unit SQ QAM Nystatin Powder 15 gm [Nystop Powder 15 gm] 1 gm TP TID Loperamide HCl 2 mg [Imodium 2 mg] 4 mg PO PRN PRN cap PRN Reason: Diarrhea Ropinirole HCl 0.5 mg [Requip 0.5 MG] 0.5 mg PO TID Instructions: Wound Care (DC) Follow up with: JONI HEWITT [Primary Care Provider] - 06/02/22 10:30 am ESTHELA KINGSTON [NON-STAFF PHY W/O PRIVILEGES] - 05/30/22 3:45 pm Forms: Discharge Instructions
[2022-05-30] MEDS: IMODIUM 2 MG PO PRN (10:19)
[2022-05-30] MEDS: Lopressor 25MG Tab PO SCH (10:20)
[2022-05-30] MEDS: Cymbalta 30 MG Capsule PO SCH (10:20)
[2022-05-30] MEDS: SYNTHROID 25 MCG PO SCH (10:20)
[2022-05-30] MEDS: Mirapex 0.5 MG Tablet PO SCH (10:20)
[2022-05-30] MEDS: Requip 0.5 MG PO SCH (10:20)
[2022-05-30] MEDS: ELAVIL 10 MG PO SCH (10:20)
[2022-05-30] MEDS: Calcium 500MG W/Vit D Tablet PO SCH (10:20)
[2022-05-30] MEDS: PROTONIX 40 MG IV IV SCH (10:21)
[2022-05-30] MEDS: Ditropan 5 MG PO SCH (10:21)
[2022-05-30] MEDS: ZYLOPRIM 100 MG PO SCH (10:21)
[2022-05-30] MEDS: Lantus Insulin SQ SCH (10:21)
[2022-05-30] MEDS: NYSTOP POWDER 15 GM TP SCH (10:21)
[2022-05-30] MEDS: VENELEX OINTMENT TP SCH (10:22)
[2022-05-30] MEDS: VITA-BEE WITH C PO SCH (10:22)
[2022-05-30 12:08] VITALS: BP 111/59; PULSE 64; O2SAT 95
== END 2022-05-30 14:15 | disposition home or self-care (01) ==
LOC: ED 20:28 → MED SURG 05-28 01:21 → ED 05-28 01:22
PROVIDERS: ADMIT General Practice; ATTEND General Practice
DX: A49.02 Methicillin resistant Staphylococcus aureus infection, unspecified site (principal); L03.115 Cellulitis of right lower limb; L03.116 Cellulitis of left lower limb; L98.499 Non-pressure chronic ulcer of skin of other sites with unspecified severity; I87.2 Venous insufficiency (chronic) (peripheral); I48.0 Paroxysmal atrial fibrillation; E11.621 Type 2 diabetes mellitus with foot ulcer; I10 Essential (primary) hypertension; E78.5 Hyperlipidemia, unspecified; Z79.01 Long term (current) use of anticoagulants; Z79.899 Other long term (current) drug therapy; Z20.828 Contact with and (suspected) exposure to other viral communicable diseases
CPT/HCPCS: 0241U; 36000; 36415; 80053; 81015; 82947; 83605; 83880; 84145; 84484; 85025; 87040; 93268; 96365; 96374; 96375; 99284; J1817; J2270; J2405; A9270-GY; G0378

== ENCOUNTER 2022-11-25 14:21 | Emergency (ER) | payer MEDICARE ==
[2022-11-25] MEDS ORDERED: Zofran 4 MG/2 ML VIAL IV ONE (14:55)
[2022-11-25 15:01] LABS: Absolute Neutrophil Ct (ANC) 4.66 x10^3/uL (1.4-6.9); BASOPHIL % 0.4 % (0.0-0.4); Basophil (Absolute #) 0.03 x10^3/uL (0-0.4); Eosinophil % 0.3 % (0.00-5.0); Eosinophil (Absolute #) 0.02 x10^3/uL (0-0.5); Hematocrit 33.7 % (35-47); Hemoglobin 10.5 g/dL (12.0-16.0); IMMATURE GRAN # 0.02 x10^3u/L (0.00-0.03); IMMATURE GRAN % 0.3 % (0.00-0.4); Lymphocyte (Absolute #) 1.92 x10^3/uL (1.0-4.6); Lymphocytes % 27.1 % (24.0-44.0); Mean Cell Volume 86.2 fL (78-100); Mean Corpuscular Hemoglobin 26.9 pg (26-32); Mean Corpuscular Hgb Concent. 31.2 g/dL (32-36); Monocyte (Absolute #) 0.44 x10^3/uL (0.0-1.3); Monocytes % 6.2 % (0.0-12.0); Neutrophil % 65.7 % (36.0-66.0); Platelet Count 311 x10^3/uL (150-450); Red Blood Count 3.91 x10^6/uL (4.1-5.4); Red Cell Distribution Width 17.8 % (11.5-14.0); White Blood Count 7.1 x10^3/uL (4.0-10.5)
[2022-11-25 15:13] LABS: ANION GAP 17.4 MEQ/L (5-15); BILIRUBIN,TOTAL 0.7 mg/dL (0.2-1.3); Calcium 9.2 mg/dL (8.4-10.2); Creatinine 1 1.43 mg/dL (0.52-1.04); Potassium 3.3 mmol/L (3.5-5.1); Total Protein 7.8 g/dL (6.3-8.2)
[2022-11-25] MEDS ORDERED: Zofran 4 MG/2 ML VIAL ONE (15:14)
[2022-11-25] MEDS ORDERED: Sodium Chloride 0.9% 500 ML 500 ML IV ONE ×2 (15:24→15:31)
[2022-11-25] MEDS ORDERED: ANTIVERT 25 MG PO ONE (15:24)
[2022-11-25] MEDS ORDERED: ANTIVERT 25 MG ONE (15:31)
--- NOTE | 2022-11-25 16:13 | XRAY ---
Indication: Vomiting and dizziness. Multiple contiguous axial images obtained through the head without contrast. Comparison: May 03, 2022 Again age-appropriate global atrophy, mild periventricular degenerative micro-ischemia bilaterally, and normal lacunar infarct right thalamus. No acute intracranial hemorrhage, abnormal extra-axial fluid collection, or mass effect. Fourth ventricle is midline without hydrocephalus. Bony calvarium intact. Visualized paranasal sinuses and mastoid air cells are clear. Impression: Stable atrophy, degenerative micro-ischemia, and remote lacunar infarct right thalamus. No new/acute intracranial abnormalities.
--- NOTE | 2022-11-25 16:19 | XRAY ---
Indication: Vomiting and dizziness. CHF. Comparison: May 03, 2021 Portable apical lordotic chest remains inflated and clear. Heart borderline enlarged again with left pacemaker and tortuous descending aorta. Bony thorax intact again with osteopenia and moderate degenerative changes. Impression: Continued nonacute chest with chronic features
--- NOTE | 2022-11-25 16:19 | XRAY ---
Indication: Vomiting and dizziness. Multiple contiguous images obtained through the abdomen and pelvis without contrast. Comparison: None Patient body habitus, beam artifact from patient's arms, and mild respiration artifact limits exam. Lung bases demonstrates dependent atelectasis. Heart borderline enlarged with partially visualized pacer leads. Noncontrasted stomach and bowel loops appear nonobstructed with pericecal suture material presumed appendectomy. Previous cholecystomy. Right mid kidney demonstrates 2.1 cm round exophytic mass not a simple cyst. Left kidney demonstrates 2.1 cm upper pole cyst. Incidental splenic calcified granulomas. Remaining liver, pancreas, spleen, adrenal glands, kidneys, ureters, bladder, and uterus are unremarkable for noncontrast exam. Mild scattered aortoiliac calcifications without AAA. Osseous structures intact with osteopenia, moderate/advanced multilevel thoracolumbar degenerative spondylosis, and bilateral L3-S1 facet screws. Moderate size fatty umbilical hernia. Impression: 1. Limited exam due to patient body habitus, beam artifact, and respiration artifact. 2. Right mid renal round exophytic mass not a simple cyst. Renal sonogram may help differentiate solid versus cystic. Incidental left renal cyst. 3. Chronic findings including arteriosclerotic disease, chronic bony findings, and fatty umbilical hernia.
[2022-11-25 17:55] LABS: ADD URINE CULTURE? NO (NO); Appearance Clear (Clear); Bacteria Rare /HPF (None Seen); Bilirubin Negative (Negative); Blood Negative (Negative); Epithelial Cells Few /HPF (None Seen); Glucose, Urine Negative (Negative); Hyaline Casts NONE SEEN /LPF (0-2); Ketones Negative (Negative); Leukocyte Esterase Negative (Negative); Nitrite Negative (Negative); Ph 5.5 (4.6-8.0); Protein,Urine Dip Negative (Negative); RBC 0-2 /HPF (0-5); Specific Gravity 1.015 (1.005-1.030); Urobilinogen 0.2 mg/dL (0.2); WBC 0-2 /HPF (0-5)
--- NOTE | 2022-11-25 18:27 | ERPHSYRPT ---
- History of Present Illness Time Seen by Provider: 11/25/22 14:26 Source: patient, family, EMS Exam Limitations: no limitations Patient Subjective Stated Complaint: pt here for dizziness and nausea with vomiting today,. Triage Nursing Assessment: pt alert, arrived per ambulance, resp easy, skin w/d/p. abd soft, sling edema to lower legs, abrasion to right lower leg that is scabed Physician History: 77-year-old female with multiple medical problems including paroxysmal atrial fibrillation on Xarelto, pacemaker placement, hypertension, hyperlipidemia, diabetes mellitus presented in the ER with chief complaint of feeling dizzy lightheaded followed by nausea and 3 episodes of nonprojectile, nonbilious vomiting without hematemesis. Patient reports room spinning sensation started after she had supper. She has some abdominal discomfort which is improved. No difficulty breathing or chest pain/tightness. Timing/Duration: today, sudden Severity: moderate Modifying Factors: Improves With: nothing Associated Symptoms: nausea, vomiting, weakness, No abdominal pain, No shortness of breath, No syncope Allergies/Adverse Reactions: No Known Drug Allergies Allergy (Verified 11/25/22 14:25) Home Medications: Allopurinol 100 mg [Zyloprim 100 mg] 100 mg PO DAILY 04/17/22 [History] Amitriptyline HCl 10 mg [Elavil 10 mg] 10 mg PO DAILY 04/17/22 [History] Aspirin EC 81 mg [Ecotrin 81 mg] 81 mg PO DAILY 04/17/22 [History] Atorvastatin Calcium 80 mg PO QHS 04/17/22 [History] Azelastine HCl 1 drop OP DAILY 04/17/22 [History] Balsalazide Disodium 750 mg PO QHS 04/17/22 [History] Calcium Carb, Citrate/Vit D3 [Calcium + D3 ER Tablet] 1 tab PO DAILY 04/17/22 [History] Ciclopirox/Skin Cleanser No.28 [Ciclodan 0.77% Cream Kit] 1 applic TOP QHS 04/17/22 [History] Collagenase Oint [Santyl OINTMENT] 1 applic TOP DAILY 04/17/22 [History] Divalproex Sodium [Depakote] 250 mg PO DAILY 04/17/22 [History] Divalproex Sodium [Depakote] 500 mg PO EVENING MEAL 04/17/22 [History] Duloxetine HCl 30 mg PO DAILY 04/17/22 [History] Duloxetine HCl [Cymbalta] 60 mg PO DAILY 04/17/22 [History] Furosemide 80 mg PO DAILY 04/17/22 [History] Furosemide 40 mg [Lasix 40 MG] 40 mg PO LUNCH 04/17/22 [History] Insulin Lispro [Admelog Solostar] 6 unit SQ AC 04/17/22 [History] Levothyroxine Sodium [Levothyroxine] 25 mcg PO DAILY 04/17/22 [History] Lipase/Protease/Amylase [Elvis Dr 24,000 Unit Capsule] 24,000 units PO AC 04/17/22 [History] Metoprolol Tartrate 25 mg PO BID 04/17/22 [History] Nitroglycerin 0.4 mg SL UD 04/17/22 [History] Oxybutynin Chloride 5 mg PO BID 04/17/22 [History] Pramipexole Di-HCl [Pramipexole Dihydrochloride] 1 mg PO TID 04/17/22 [History] Rivaroxaban [Xarelto] 15 mg PO EVENING MEAL 04/17/22 [History] Vitamin B Complex 1 tab PO DAILY 04/17/22 [History] Melatonin 10 mg PO QHS 04/18/22 [History] Triamcinolone 0.1% Lotion [Kenalog 0.1% Lotion] 1 applic TOP QHS 04/18/22 [History] Insulin Detemir [Levemir] 30 unit SQ QAM 05/03/22 [History] Nystatin Powder 15 gm [Nystop Powder 15 gm] 1 gm TP TID 05/03/22 [History] Ropinirole HCl 0.5 mg [Requip 0.5 MG] 0.5 mg PO TID 05/28/22 [History] Hx Tetanus, Diphtheria Vaccination/Date Given: No Hx Influenza Vaccination/Date Given: Yes Hx Pneumococcal Vaccination/Date Given: No Immunizations Up to Date: Yes Travel Risk - International Travel Have you traveled outside of the country in past 3 weeks: No - Coronavirus Screening Are you exhibiting any of the following symptoms?: No - Vaccine Status Have you recieved a Covid-19 vaccination: Yes Experimental Display Builder: Moderna - Vaccination Dates Date of 2cond Vaccination (if applicable): 2020 - Review of Systems Constitutional: No Symptoms Eyes: No Symptoms Ears, Nose, & Throat: No Symptoms Respiratory: No Symptoms Cardiac: No Symptoms Abdominal/Gastrointestinal: Nausea, Vomiting Genitourinary Symptoms: No Symptoms Musculoskeletal: No Symptoms Skin: No Symptoms Neurological: Dizziness Psychological: No Symptoms Endocrine: No Symptoms Hematologic/Lymphatic: No Symptoms Immunological/Allergic: No Symptoms - Past Medical History Pertinent Past Medical History: Yes Neurological History: Migraines, TIA, Other ENT History: No Pertinent History Cardiac History: High Cholesterol, Hypertension, Other Respiratory History: No Pertinent History Endocrine Medical History: Diabetes Type II Musculoskeletal History: No Pertinent History, Degenerative Disk Disease GI Medical History: Crohns Disease, Irritable Bowel History: No Pertinent History Psycho-Social History: No Pertinent History Female Reproductive Disorders: No Pertinent History Other Medical History: NEUROPATHY - Past Surgical History Past Surgical History: Yes Neuro Surgical History: No Pertinent History Cardiac: Pacemaker Respiratory: No Pertinent History Gastrointestinal: Appendectomy, Cholecystectomy Genitourinary: No Pertinent History Musculoskeletal: Joint Replacement, Orthopedic Surgery Female Surgical History: No Pertinent History Other Surgical History: BARIATRIC SURG,CARPAL TUNNEL - Social History Smoking Status: Never smoker Exposure to second hand smoke: No Drug Use: none Patient Lives Alone: No - Nursing Vital Signs Nursing Vital Signs: Initial Vital Signs Temperature 98.2 F 11/25/22 14:24 Pulse Rate 90 11/25/22 14:24 Respiratory Rate 18 11/25/22 14:24 Blood Pressure 144/58 11/25/22 14:24 O2 Sat by Pulse Oximetry 98 11/25/22 14:24 Pain Scale Pain Intensity 3 - Physical Exam General Appearance: no apparent distress, alert Eye Exam: PERRL/EOMI, eyes nml inspection Ears, Nose, Throat Exam: normal ENT inspection, TMs normal, pharynx normal, moist mucous membranes Respiratory Exam: normal breath sounds, lungs clear Cardiovascular Exam: tachycardia, irregular Gastrointestinal/Abdomen Exam: soft, normal bowel sounds, No tenderness Back Exam: normal inspection Extremity Exam: pedal edema, swelling Neurologic Exam: alert, oriented x 3, cooperative, pharmacy account director II-XII nml as tested, normal mood/affect, nml cerebellar function, sensation nml, No motor deficits Skin Exam: normal color SpO2 Interpretation: normal SpO2: 92 O2 Delivery: Room Air Ordered Tests: Active Orders 24 hr Category Date Time Status EKG-ER Only STAT Care 11/25/22 15:23 Active IV Insertion STAT Care 11/25/22 15:23 Active ABDOMEN AND PELVIS W/0 CONTRAS [CT] Stat Exams 11/25/22 15:23 Completed CHEST 1 VIEW (PORTABLE) Stat Exams 11/25/22 15:24 Completed HEAD WITHOUT CONTRAST [CT] Stat Exams 11/25/22 15:23 Completed KIDNEY [US] Stat Exams 11/25/22 17:15 Taken CBC W DIFF Stat Lab 11/25/22 14:30 Completed CMP Stat Lab 11/25/22 14:30 Completed LIPASE Stat Lab 11/25/22 14:30 Completed TROPONIN Q4H Lab 11/25/22 13:30 Completed TROPONIN Q4H Lab 11/25/22 19:30 Ordered TROPONIN Q4H Lab 11/25/22 23:30 Ordered UA W/RFX UR CULTURE Stat Lab 11/25/22 15:56 Completed Medication Summary Discontinued Medications Generic Name Dose Route Start Last Admin Trade Name Freq PRN Reason Stop Dose Admin Sodium Chloride 500 mls @ 500 mls/hr 11/25/22 15:24 11/25/22 16:49 Sodium Chloride 0.9% 500 Ml IV 11/25/22 16:23 Infused .Q1H ONE Infusion Sodium Chloride Confirm 11/25/22 15:31 Sodium Chloride 0.9% 500 Ml Administered 11/25/22 15:32 Dose 500 mls @ ud IV .STK-MED ONE Meclizine HCl 25 mg 11/25/22 15:24 11/25/22 15:33 Meclizine Hcl 25 Mg Tablet PO 11/25/22 15:25 25 mg STAT ONE Administration Meclizine HCl Confirm 11/25/22 15:31 Meclizine Hcl 25 Mg Tablet Administered 11/25/22 15:32 Dose 25 mg .ROUTE .STK-MED ONE Ondansetron HCl 4 mg 11/25/22 14:55 11/25/22 15:14 Ondansetron Hcl 4 Mg/2 Ml Vial IV 11/25/22 14:56 4 mg STAT ONE Administration Ondansetron HCl Confirm 11/25/22 15:14 Ondansetron Hcl 4 Mg/2 Ml Vial Administered 11/25/22 15:15 Dose 4 mg .ROUTE .STK-MED ONE Lab/Rad Data: Laboratory Result Diagrams 11/25/22 14:30 11/25/22 14:30 Laboratory Results 11/25/22 11/25/22 11/25/22 Range/Units 15:56 14:30 14:30 WBC 7.1 (4.0-10.5) x10^3/uL RBC 3.91 L (4.1-5.4) x10^6/uL Hgb 10.5 L (12.0-16.0) g/dL Hct 33.7 L (35-47) % MCV 86.2 (78-100) fL MCH 26.9 (26-32) pg MCHC 31.2 L (32-36) g/dL RDW 17.8 H (11.5-14.0) % Plt Count 311 (150-450) x10^3/uL MPV 10.0 (7.5-11.0) fL Gran % 65.7 (36.0-66.0) % Immature Gran % (Auto) 0.3 (0.00-0.4) % Nucleat RBC Rel Count 0.0 (0.00-0.1) % Eos # (Auto) 0.02 (0-0.5) x10^3/uL Immature Gran # (Auto) 0.02 (0.00-0.03) x10^3u/L Absolute Lymphs (auto) 1.92 (1.0-4.6) x10^3/uL Absolute Monos (auto) 0.44 (0.0-1.3) x10^3/uL Absolute Nucleated RBC 0.00 (0.00-0.01) x10^3u/L Lymphocytes % 27.1 (24.0-44.0) % Monocytes % 6.2 (0.0-12.0) % Eosinophils % 0.3 (0.00-5.0) % Basophils % 0.4 (0.0-0.4) % Absolute Granulocytes 4.66 (1.4-6.9) x10^3/uL Basophils # 0.03 (0-0.4) x10^3/uL Sodium 138 (137-145) mmol/L Potassium 3.3 L (3.5-5.1) mmol/L Chloride 98 (98-107) mmol/L Carbon Dioxide 25 (22-30) mmol/L Anion Gap 17.4 H (5-15) MEQ/L BUN 26 H (7-17) mg/dL Creatinine 1.43 H (0.52-1.04) mg/dL Estimated GFR 38.0 ML/MIN Glucose 178 H (74-106) mg/dL Calcium 9.2 (8.4-10.2) mg/dL Total Bilirubin 0.70 (0.2-1.3) mg/dL AST 29 (14-36) U/L ALT 16 (0-35) U/L Alkaline Phosphatase 107 (38-126) U/L Troponin I (0.000-0.034) ng/mL Serum Total Protein 7.8 (6.3-8.2) g/dL Albumin 4.0 (3.5-5.0) g/dL Lipase 50 (23-300) U/L Urine Color Dark Yellow A (Yellow) Urine Appearance Clear (Clear) Urine pH 5.5 (4.6-8.0) Ur Specific Gilchrist 1.015 (1.005-1.030) Urine Protein Negative (Negative) Urine Glucose (UA) Negative (Negative) mg/dL Urine Ketones Negative (Negative) Urine Blood Negative (Negative) Urine Nitrite Negative (Negative) Urine Bilirubin Negative (Negative) Urine Urobilinogen 0.2 (0.2) mg/dL Ur Leukocyte Esterase Negative (Negative) U Hyaline Cast (Auto) NONE SEEN (0-2) /LPF Urine Microscopic RBC 0-2 (0-5) /HPF Urine Microscopic WBC 0-2 (0-5) /HPF Ur Epithelial Cells Few (None Seen) /HPF Urine Bacteria Rare A (None Seen) /HPF Urine Culture Reflexed NO (NO) 11/25/22 Range/Units 13:30 WBC (4.0-10.5) x10^3/uL RBC (4.1-5.4) x10^6/uL Hgb (12.0-16.0) g/dL Hct (35-47) % MCV (78-100) fL MCH (26-32) pg MCHC (32-36) g/dL RDW (11.5-14.0) % Plt Count (150-450) x10^3/uL MPV (7.5-11.0) fL Gran % (36.0-66.0) % Immature Gran % (Auto) (0.00-0.4) % Nucleat RBC Rel Count (0.00-0.1) % Eos # (Auto) (0-0.5) x10^3/uL Immature Gran # (Auto) (0.00-0.03) x10^3u/L Absolute Lymphs (auto) (1.0-4.6) x10^3/uL Absolute Monos (auto) (0.0-1.3) x10^3/uL Absolute Nucleated RBC (0.00-0.01) x10^3u/L Lymphocytes % (24.0-44.0) % Monocytes % (0.0-12.0) % Eosinophils % (0.00-5.0) % Basophils % (0.0-0.4) % Absolute Granulocytes (1.4-6.9) x10^3/uL Basophils # (0-0.4) x10^3/uL Sodium (137-145) mmol/L Potassium (3.5-5.1) mmol/L Chloride (98-107) mmol/L Carbon Dioxide (22-30) mmol/L Anion Gap (5-15) MEQ/L BUN (7-17) mg/dL Creatinine (0.52-1.04) mg/dL Estimated GFR ML/MIN Glucose (74-106) mg/dL Calcium (8.4-10.2) mg/dL Total Bilirubin (0.2-1.3) mg/dL AST (14-36) U/L ALT (0-35) U/L Alkaline Phosphatase (38-126) U/L Troponin I < 0.012 (0.000-0.034) ng/mL Serum Total Protein (6.3-8.2) g/dL Albumin (3.5-5.0) g/dL Lipase (23-300) U/L Urine Color (Yellow) Urine Appearance (Clear) Urine pH (4.6-8.0) Ur Specific Gilchrist (1.005-1.030) Urine Protein (Negative) Urine Glucose (UA) (Negative) mg/dL Urine Ketones (Negative) Urine Blood (Negative) Urine Nitrite (Negative) Urine Bilirubin (Negative) Urine Urobilinogen (0.2) mg/dL Ur Leukocyte Esterase (Negative) U Hyaline Cast (Auto) (0-2) /LPF Urine Microscopic RBC (0-5) /HPF Urine Microscopic WBC (0-5) /HPF Ur Epithelial Cells (None Seen) /HPF Urine Bacteria (None Seen) /HPF Urine Culture Reflexed (NO) - Progress Progress: improved, re-examined Progress Note: 11/25/22 18:24 77-year-old with multiple medical problems including paroxysmal atrial fibrillation on Xarelto, diabetes mellitus, hypertension, hyperlipidemia is evaluated for nausea vomiting with dizziness. Patient has nonfocal neuro exam throughout her stay in the ER. Symptoms are more of benign positional vertigo, given meclizine and symptomatic treatment along with fluids, on reevaluation her symptoms completely resolved. I have obtained CT head which is negative for any acute intra-cranial findings and also has a negative CT abdomen pelvis and chest x-ray. Chemistries showed mild dehydration with negative troponins. She has no UTI. I would give her meclizine to go home to take as needed and outp atient follow-up. This point I do not think she needs any other work-up and is stable for discharge. Counseled pt/family regarding: lab results, diagnosis, need for follow-up, rad results Medical Desision Making - Independent Historian Additional History obtained from: Family, EMS - Discussion of managment Reviewed:: Test results Agreed on:: Treatment plan, need for follow-up - Diagnostic Testing Diagnostic test were ordered, analyzed, and reviewed by me: Yes Radiological Interpretation: Reviewed by me - Risk of complications The pt has a mod risk of morbidity or mortality based on: Need for prescription drug management - Departure Departure Disposition: Home Clinical Impression: Dizziness, Paroxysmal atrial fibrillation Condition: Stable Critical Care Time: No Referrals: [facility] [Primary Care Provider] - Follow Up with PCP/3 days Instructions: Vertigo (a Type of Dizziness) (DC), Nausea and Vomiting, Adult (DC) Additional Instructions: Keep yourself well-hydrated, follow-up with primary care for reevaluation. Re turn to ER for intractable vomiting/dizziness/numbness tingling focal weakness etc. Prescriptions: Meclizine HCl 25 mg [Antivert 25 mg] 25 mg PO Q8HPRN PRN #12 tablet PRN Reason: Dizziness
[2022-11-25 18:44] VITALS: O2SAT 95
[2022-11-25 19:12] VITALS: BP 139/71; PULSE 89
--- NOTE | 2022-11-25 22:23 | XRAY ---
Indication: Right renal mass on same-day CT abdomen/pelvis without contrast exam. 2-dimensional renal sonogram performed. Comparison: None Both kidneys normal in reniform shape with normal color perfusion. Right kidney measures 10.5 x 5.5 x 4.8 cm and the left measures 10.9 x 5.5 x 4.0 cm. Right mid kidney demonstrates 2.2 x 2.1 x 2.6 cm benign-appearing cyst corresponding to the CT mass. Left upper kidney demonstrates a 2.3 x 2.1 x 2.4 cm benign-appearing cyst. No suspicious solid renal mass or hydronephrosis. Normally distended urinary bladder grossly unremarkable. Ureteral jets not seen within the allotted exam time. Impression: Bilateral benign-appearing renal cysts. Comment: Preliminary report was given.
== END 2022-11-25 19:27 | disposition home or self-care (01) ==
LOC: ED 14:21
DX: R42 Dizziness and giddiness (principal); I48.0 Paroxysmal atrial fibrillation; R11.2 Nausea with vomiting, unspecified; E11.9 Type 2 diabetes mellitus without complications; E78.5 Hyperlipidemia, unspecified; I10 Essential (primary) hypertension; Z79.01 Long term (current) use of anticoagulants; Z79.4 Long term (current) use of insulin; Z79.899 Other long term (current) drug therapy
CPT/HCPCS: 36000; 36415; 70450; 71045; 74176; 76770; 80053; 81001; 83690; 84484; 85025; 93005; 96360; 96374; 99284; J2405; A9270-GY

== ENCOUNTER 2023-05-26 20:04 | Emergency (ER) | payer MEDICARE ==
--- NOTE | 2023-05-26 20:08 | ERPHSYRPT ---
- History of Present Illness Time Seen by Provider: 05/26/23 20:08 Source: patient, EMS Exam Limitations: no limitations Physician History: This is a 77-year-old morbidly obese white female patient of Dr. Perez who is a resident of the [facility] and presents to our emergency department by transfer patient from the paramedics because of fall injury. Patient tripped. She hit her head and there is a contusion/hematoma left forehead just above the left eyebrow. She did not lose consciousness. Patient is on Xarelto. She also complains of left forearm and wrist pain and there is some swelling in that area but no obvious deformity. She also has pain in her sacrum/coccyx region. Patient has a history of atrial fibrillation, hypertension, hyperlipidemia, seizure disorder, diabetes, hypothyroidism, TIA, migraine headaches, irritable bowel syndrome/Crohn's disease, and has a pacemaker in place. She denies chest pain and she denies shortness of breath. Occurred: just prior to arrival Reason for Fall: tripped Injuries/Pain Location: head, upper extremity (Left forearm and left wrist), lower (Coccyx and sacrum) Loss of Consciousness: no loss of consciousness Quality: aching Severity of Pain-Max: mild Severity of Pain-Current: mild Modifying Factors: Improves With: movement Associated Symptoms (Fall): extremity injury (Left forearm and left wrist), headache Allergies/Adverse Reactions: No Known Drug Allergies Allergy (Verified 05/26/23 20:36) Home Medications: Allopurinol 100 mg [Zyloprim 100 mg] 100 mg PO DAILY 04/17/22 [History] Amitriptyline HCl 10 mg [Elavil 10 mg] 10 mg PO DAILY 04/17/22 [History] Aspirin EC 81 mg [Ecotrin 81 mg] 81 mg PO DAILY 04/17/22 [History] Atorvastatin Calcium 80 mg PO QHS 04/17/22 [History] Azelastine HCl 1 drop OP DAILY 04/17/22 [History] Balsalazide Disodium 750 mg PO QHS 04/17/22 [History] Calcium Carb, Citrate/Vit D3 [Calcium + D3 ER Tablet] 1 tab PO DAILY 04/17/22 [History] Ciclopirox/Skin Cleanser No.28 [Ciclodan 0.77% Cream Kit] 1 applic TOP QHS 04/17/22 [History] Collagenase Oint [Santyl OINTMENT] 1 applic TOP DAILY 04/17/22 [History] Divalproex Sodium [Depakote] 250 mg PO DAILY 04/17/22 [History] Divalproex Sodium [Depakote] 500 mg PO EVENING MEAL 04/17/22 [History] Duloxetine HCl 30 mg PO DAILY 04/17/22 [History] Duloxetine HCl [Cymbalta] 60 mg PO DAILY 04/17/22 [History] Furosemide 80 mg PO DAILY 04/17/22 [History] Furosemide 40 mg [Lasix 40 MG] 40 mg PO LUNCH 04/17/22 [History] Insulin Lispro [Admelog Solostar] 6 unit SQ AC 04/17/22 [History] Levothyroxine Sodium 25 mcg PO DAILY 04/17/22 [History] Lipase/Protease/Amylase [Elvis Dr 24,000 Unit Capsule] 24,000 units PO AC 04/17/22 [History] Metoprolol Tartrate 25 mg PO BID 04/17/22 [History] Nitroglycerin 0.4 mg SL UD 04/17/22 [History] Oxybutynin Chloride 5 mg PO BID 04/17/22 [History] Pramipexole Di-HCl [Pramipexole Dihydrochloride] 1 mg PO TID 04/17/22 [History] Rivaroxaban [Xarelto] 15 mg PO EVENING MEAL 04/17/22 [History] Vitamin B Complex 1 tab PO DAILY 04/17/22 [History] Melatonin 10 mg PO QHS 04/18/22 [History] Triamcinolone 0.1% Lotion [Kenalog 0.1% Lotion] 1 applic TOP QHS 04/18/22 [History] Insulin Detemir [Levemir] 30 unit SQ QAM 05/03/22 [History] Nystatin Powder 15 gm [Nystop Powder 15 gm] 1 gm TP TID 05/03/22 [History] Ropinirole HCl 0.5 mg [Requip 0.5 MG] 0.5 mg PO TID 10/29/22 [History] Hx Tetanus, Diphtheria Vaccination/Date Given: No Hx Influenza Vaccination/Date Given: Yes Hx Pneumococcal Vaccination/Date Given: No Travel Risk - International Travel Have you traveled outside of the country in past 3 weeks: No - Coronavirus Screening Are you exhibiting any of the following symptoms?: No Close contact with a COVID-19 positive Pt in past 14-21 Days: No - Vaccine Status Have you recieved a Covid-19 vaccination: Yes 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 - Vaccination Dates Date of 2cond Vaccination (if applicable): 2020 - Review of Systems Constitutional: No Symptoms Eyes: No Symptoms Ears, Nose, & Throat: No Symptoms Respiratory: No Symptoms Cardiac: No Symptoms Abdominal/Gastrointestinal: No Symptoms Genitourinary Symptoms: No Symptoms Musculoskeletal: Fall, Injury (Left forearm, left wrist, sacrum and coccyx), No Deformity Skin: Other (Contusion/small hematoma left forehead above the left eyebrow) Neurological: No Symptoms Psychological: No Symptoms Endocrine: No Symptoms Hematologic/Lymphatic: No Symptoms Immunological/Allergic: No Symptoms All Other Systems: Reviewed and Negative - Past Medical History Pertinent Past Medical History: Yes Neurological History: Migraines, TIA, Other ENT History: No Pertinent History Cardiac History: High Cholesterol, Hypertension, Other Respiratory History: No Pertinent History Endocrine Medical History: Diabetes Type II Musculoskeletal History: No Pertinent History, Degenerative Disk Disease GI Medical History: Crohns Disease, Irritable Bowel History: No Pertinent History Psycho-Social History: No Pertinent History Female Reproductive Disorders: No Pertinent History Other Medical History: NEUROPATHY - Past Surgical History Past Surgical History: Yes Neuro Surgical History: No Pertinent History Cardiac: Pacemaker Respiratory: No Pertinent History Gastrointestinal: Appendectomy, Cholecystectomy Genitourinary: No Pertinent History Musculoskeletal: Joint Replacement, Orthopedic Surgery Female Surgical History: No Pertinent History Other Surgical History: BARIATRIC SURG,CARPAL TUNNEL - Social History Smoking Status: Never smoker Exposure to second hand smoke: No Drug Use: none Patient Lives Alone: No - Nursing Vital Signs Nursing Vital Signs: Initial Vital Signs Temperature 97.1 F 05/26/23 20:05 Pulse Rate 62 05/26/23 20:05 Respiratory Rate 18 05/26/23 20:05 Blood Pressure 140/56 05/26/23 20:05 O2 Sat by Pulse Oximetry 97 05/26/23 20:05 Pain Scale Pain Intensity 9 - Jose Coma Score Best Eye Response ([place]): (4) open spontaneously Best Verbal Response ([place]): (5) oriented Best Motor Response ([place]): (6) obeys commands [place] Total: 15 - Physical Exam General Appearance: no apparent distress, alert, anxiety, obese Head Injury: swelling (Above left eyebrow and forehead), tenderness (Above left eyebrow and left forehead) Eye Exam: PERRL/EOMI, eyes nml inspection ENT Exam: airway nml, nml ext.inspection, No evidence of ENT injury Neck Exam: supple, trachea midline, full range of motion, normal alignment, normal inspection, pain on movement of neck (Mild), No muscle spasm Respiratory/Chest Exam: normal breath sounds, No chest tenderness, No respiratory distress, No ecchymosis, No crepitus Cardiovascular Exam: normal heart sounds, regular rate/rhythm Gastrointestinal Exam: soft, normal bowel sounds, No tenderness Rectal Exam: not done Back Exam: normal inspection, normal range of motion, other (Tenderness in the sacrum and coccyx area to palpation. No obvious deformity), No CVA tenderness, No vertebral tenderness Extremity Exam: normal range of motion, tenderness (Dorsal aspect left forearm and left wrist), No deformities Neurologic Exam: alert, oriented x 3, cooperative, stone layer II-XII nml as tested, normal mood/affect, nml cerebellar function, nml station & gait, sensation nml Skin Exam: other (See above. Also patient has her bilateral lower extremities wrapped for treatment of blisters and ulcerations. There is no complaints of any bilateral lower extremity pain other than what she normally has. There is no evidence of deformity.) SpO2 Interpretation: normal O2 Delivery: Room Air - Course Nursing assessment & vital signs reviewed: Yes Ordered Tests: Active Orders 24 hr Category Date Time Status CERVICAL SPINE WO CONTRAST [CT] Stat Exams 05/26/23 20:16 Taken FOREARM Stat Exams 05/26/23 20:16 Taken HEAD WITHOUT CONTRAST [CT] Stat Exams 05/26/23 20:15 Taken SACRUM AND COCCYX Stat Exams 05/26/23 20:17 Taken WRIST (MIN 3 VIEWS) Stat Exams 05/26/23 20:16 Taken - Progress Progress Note: 05/26/23 20:24 This patient's medical issue is 1 of low to moderate complexity. Level complexity in the work-up performed is based on review of the patient's past medical history, review of the patient's medication list, review the patient's drug allergy list, history of present illness and physical findings on examination. Work-up in this patient includes CT scan of the head without contrast, CT scan of the cervical spine without contrast, sacrum and coccyx x- ray, x-ray of left forearm and left wrist. 05/26/23 21:25 The following radiographic studies were interpreted by me: Left wrist x-ray shows no acute fracture or dislocation. Left forearm x-ray shows no acute fracture or dislocation. X-ray of the sacrum and coccyx shows no acute fracture or dislocation. 05/26/23 21:53 CT scan of the head without contrast was interpreted by the radiologist and I reviewed the impression. Impression states stable nonacute senile brain. CT scan of the cervical spine without contrast shows multilevel degenerative disc disease. Negative for acute fracture or subluxation. Counseled pt/family regarding: diagnosis, need for follow-up, rad results Medical Desision Making - Independent Historian Additional History obtained from: Family - Diagnostic Testing Diagnostic test were ordered, analyzed, and reviewed by me: Yes Radiological Interpretation: Interpreted by me, Reviewed by me, Teleradiologist Report - Risk of complications Low Risk: Low risk of morbidity from additional dx testing or treatment - Departure Departure Disposition: Home Clinical Impression: Fall with no significant injury, Contusion of forehead Condition: Stable Critical Care Time: No Referrals: [facility]EV[facility]AE[facility] [LOCATION] - Follow up/PCP as directed Additional Instructions: Continue same orders at extended-care facility. Ice pack to tender swollen areas 3 times a day for 48 hours.
[2023-05-26 20:13] VITALS: TEMP 97.1
[2023-05-26 21:56] VITALS: PULSE 62; RESP 13; O2SAT 96
[2023-05-26 22:09] VITALS: BP 132/67
--- NOTE | 2023-05-27 08:05 | XRAY ---
Indication: Left forehead contusion following fall. Blood thinner therapy. Multiple contiguous axial images obtained through the head without contrast. Comparison: November 25, 2022 Again age-appropriate global atrophy, mild periventricular degenerative micro-ischemia bilaterally, and remote lacunar infarct right thalamus. No acute intracranial hemorrhage, abnormal extra-axial fluid collection, or mass effect. Fourth ventricle is midline without hydrocephalus. New small left frontal scalp hematoma. Bony calvarium intact. Visualized paranasal sinuses and mastoid air cells are clear. Impression: New left frontal scalp hematoma. Otherwise continued nonacute senile brain with remote lacunar infarct right thalamus.
--- NOTE | 2023-05-27 08:07 | XRAY ---
Indication: Status post fall. Comparison: None 2 view left forearm demonstrates osteopenia and tiny spurring olecranon process. No other bony, articular, or soft tissue abnormalities.
--- NOTE | 2023-05-27 08:07 | XRAY ---
Indication: Left forehead contusion following fall. Blood thinner therapy. Multiple contiguous axial images obtained through the cervical spine. Sagittal and coronal reformatted images obtained. Comparison: None Osseous structures demineralized. Axial images negative for acute fracture, suspicious bony lesions, or spinal canal stenosis. Minimal/mild C4-C7 degenerative endplate spurring and mild/moderate multilevel bilateral degenerative facet hypertrophy. Sagittal and coronal reformatted images demonstrates normal cervical lordosis with 2 mm anterolisthesis C4 on C5. Also C4-C5 and C6-C7 degenerative disc space narrowing. No acute compression fracture or jumped facet. Normal appearing craniocervical junction. Visualized noncontrasted soft tissues demonstrates moderate bilateral carotid calcifications. Lung apices clear. Patient is edentulous. Impression: Osteopenia, multilevel degenerative spondylosis, and bilateral carotid calcifications. Negative acute fracture.
--- NOTE | 2023-05-27 08:09 | XRAY ---
Indication: Status post fall. Comparison: None 3 view left wrist demonstrates osteopenia, minimal/mild 1st metacarpal multangular scaphoid degenerative changes, radiocarpal joint space narrowing, and mild widened scapholunate interval favoring underlying ligamentous tear. No other bony, articular, or soft tissue abnormalities.
--- NOTE | 2023-05-27 08:13 | XRAY ---
Indication: Status post fall. Comparison: None 3 view sacrum/coccyx demonstrates osteopenia, incompletely visualized multilevel bilateral lumbosacral facet fusion screws with 7-8mm anterolisthesis L4 on L5, incompletely visualized multilevel lower laminectomy, bilateral SI joint degenerative changes, scattered vascular calcifications including pelvic phleboliths, and right lower quadrant suture material. No other bony, articular, or soft tissue abnormalities. Impression: Nonacute sacrum/coccyx with chronic features.
== END 2023-05-26 22:09 | disposition home or self-care (01) ==
LOC: ED 20:04
DX: S00.83XA Contusion of other part of head, initial encounter (principal); W19.XXXA Unspecified fall, initial encounter; M79.632 Pain in left forearm; M25.532 Pain in left wrist; M53.3 Sacrococcygeal disorders, not elsewhere classified; I10 Essential (primary) hypertension; E78.5 Hyperlipidemia, unspecified; E11.9 Type 2 diabetes mellitus without complications; Z79.01 Long term (current) use of anticoagulants; Z79.4 Long term (current) use of insulin; Z79.899 Other long term (current) drug therapy
CPT/HCPCS: 70450; 72125; 72220; 73090; 73110; 99283

== ENCOUNTER 2023-06-24 09:30 | Emergency (ER) | payer MEDICARE ==
--- NOTE | 2023-06-24 09:35 | ERPHSYRPT ---
- History of Present Illness Time Seen by Provider: 06/24/23 09:35 Source: patient, family Exam Limitations: clinical condition Physician History: This is a 77-year-old morbidly obese white female patient of Dr. James who presents to the emergency department with her [id number] who provided independent, additional history, with history of increasing confusion over the last 2 to 3 days. In addition, patient slid out of her bed and did hit her head and there is a bruise on her right forehead. Patient is on Xarelto. Patient is awake she is alert she is oriented at this time. She denies any pain. Patient has a history of hyperlipidemia, inflammatory bowel disease/Crohn's disease, seizure disorder on Depakote, insulin-dependent diabetes, hypothyroidism, depression, TIAs, migraine headaches, hypertension, and degenerative disc disease. Patient has a pacemaker placed and is on Xarelto. There is been no change in her medications per patient and per [id number]. Timing/Duration: day(s) (Last 2 to 3 days) Severity: mild (To moderate) Character of Deficits: none Deficits: cannot stand (Chronic), cannot walk (Chronic) Baseline/Normal Cognition: alert but confused Current Cognition: alert but confused Baseline Gait: unable to walk Associated Symptoms: confusion (Per patient's [id number]), trouble walking (Chronic) Allergies/Adverse Reactions: oxycodone Allergy (Severe, Verified 06/24/23 09:56) Itching Home Medications: Aspirin EC 81 mg [Ecotrin 81 mg] 81 mg PO DAILY 04/17/22 [History] Atorvastatin Calcium 80 mg PO QHS 04/17/22 [History] Balsalazide Disodium 750 mg PO QHS 04/17/22 [History] Divalproex Sodium [Depakote] 500 mg PO QHS 04/17/22 [History] Duloxetine HCl 30 mg PO DAILY 04/17/22 [History] Duloxetine HCl [Cymbalta] 60 mg PO DAILY 04/17/22 [History] Furosemide 80 mg PO DAILY 04/17/22 [History] Metoprolol Tartrate 25 mg PO BID 04/17/22 [History] Nitroglycerin 0.4 mg SL UD 04/17/22 [History] Pramipexole Di-HCl [Pramipexole Dihydrochloride] 1 mg PO TID 04/17/22 [History] Rivaroxaban [Xarelto] 15 mg PO EVENING MEAL 04/17/22 [History] Vitamin B Complex 1 tab PO DAILY 04/17/22 [History] Dulaglutide [Trulicity] 1.5 mg SQ WEEKLY 05/26/23 [History] Insulin Glargine,Hum.rec.anlog [Lantus] 11 unit SQ QHS 05/26/23 [History] Loperamide HCl 2 mg [Imodium 2 mg] 2 mg PO PRN PRN 05/26/23 [History] Melatonin 3 mg PO QHS 05/26/23 [History] Mesalamine [Delzicol] 400 mg PO DAILY 05/26/23 [History] Oxybutynin Chloride [Oxybutynin Chloride ER] 20 mg PO DAILY 05/26/23 [History] Pregabalin 50 mg [Lyrica 50MG] 50 mg PO TID 05/26/23 [History] Ubidecarenone [Co Q-10] 10 mg PO DAILY 05/26/23 [History] Allopurinol 100 mg [Zyloprim 100 mg] 100 mg PO DAILY 06/24/23 [History] Amitriptyline HCl 10 mg [Elavil 10 mg] 10 mg PO HS 06/24/23 [History] Lipase/Protease/Amylase [Elvis Portillo 24,000 Unit Capsule] 1 cap PO TID 06/24/23 [History] Pregabalin [Lyrica] 50 mg PO TID 06/24/23 [History] Hx Tetanus, Diphtheria Vaccination/Date Given: No Hx Influenza Vaccination/Date Given: Yes Hx Pneumococcal Vaccination/Date Given: No Travel Risk - International Travel Have you traveled outside of the country in past 3 weeks: No - Coronavirus Screening Are you exhibiting any of the following symptoms?: No Close contact with a COVID-19 positive Pt in past 14-21 Days: No - Vaccine Status Have you recieved a Covid-19 vaccination: Yes [employer]: Moderna - Vaccination Dates Date of 2cond Vaccination (if applicable): 2020 - Review of Systems Constitutional: Weakness Eyes: No Symptoms Ears, Nose, & Throat: No Symptoms Respiratory: No Symptoms Cardiac: No Symptoms Abdominal/Gastrointestinal: No Symptoms Genitourinary Symptoms: No Symptoms Musculoskeletal: No Symptoms Skin: No Symptoms Neurological: Other (Increased confusion over the last 2 to 3 days) Psychological: No Symptoms Endocrine: No Symptoms Hematologic/Lymphatic: No Symptoms Immunological/Allergic: No Symptoms All Other Systems: Reviewed and Negative - Past Medical History Pertinent Past Medical History: Yes Neurological History: Migraines, TIA, Other ENT History: No Pertinent History Cardiac History: High Cholesterol, Hypertension, Other Respiratory History: No Pertinent History Endocrine Medical History: Diabetes Type II Musculoskeletal History: No Pertinent History, Degenerative Disk Disease GI Medical History: Crohns Disease, Irritable Bowel History: No Pertinent History Psycho-Social History: No Pertinent History Female Reproductive Disorders: No Pertinent History Other Medical History: NEUROPATHY - Past Surgical History Past Surgical History: Yes Neuro Surgical History: No Pertinent History Cardiac: Pacemaker Respiratory: No Pertinent History Gastrointestinal: Appendectomy, Cholecystectomy Genitourinary: No Pertinent History Musculoskeletal: Joint Replacement, Orthopedic Surgery Female Surgical History: No Pertinent History Other Surgical History: BARIATRIC SURG,CARPAL TUNNEL - Social History Smoking Status: Never smoker Exposure to second hand smoke: No Drug Use: none Patient Lives Alone: No - Nursing Vital Signs Nursing Vital Signs: Initial Vital Signs Temperature 96.8 F 06/24/23 09:47 Pulse Rate 88 06/24/23 09:47 Respiratory Rate 20 06/24/23 09:47 Blood Pressure 115/57 06/24/23 09:47 O2 Sat by Pulse Oximetry 98 06/24/23 09:47 Pain Scale Pain Intensity 0 - [place] Coma Scale Best Eye Response ([place]): (4) open spontaneously Best Verbal Response ([place]): (5) oriented Best Motor Response ([place]): (6) obeys commands [place] Total: 15 - Physical Exam General Appearance: no apparent distress, alert, obese Eye Exam: bilateral eye: normal inspection, PERRL, EOMI Ears, Nose, Throat Exam: moist mucous membranes, other (Edentulous) Neck Exam: normal inspection, non-tender, supple, full range of motion Respiratory: normal breath sounds, lungs clear, airway intact, No chest tenderness, No respiratory distress Cardiovascular: regular rate/rhythm, normal heart sounds, normal peripheral pulses Gastrointestinal: soft, normal bowel sounds, No tenderness Pelvic Exam: not done Rectal Exam: not done Back Exam: normal inspection, normal range of motion, No CVA tenderness, No vertebral tenderness Extremity Exam: normal range of motion, pelvis stable, other (Bilateral lower extremity Unna boots in place. 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 Exam: normal hearing, normal speech, PERRL, tongue midline Motor/Sensory: no motor deficit, no sensory deficit Skin Exam: dry, pale SpO2 Interpretation: normal O2 Delivery: Room Air - Course Nursing assessment & vital signs reviewed: Yes Ordered Tests: Active Orders 24 hr Category Date Time Status EKG-ER Only STAT Care 06/24/23 10:05 Active IV Insertion STAT Care 06/24/23 10:05 Active POCT Glucose Check STAT Care 06/24/23 10:05 Completed Pulse Oximetry (ED) STAT Care 06/24/23 10:05 Active HEAD WITHOUT CONTRAST [CT] Stat Exams 06/24/23 10:06 Completed BLOOD CULTURE Stat Lab 06/24/23 10:40 Received CBC W DIFF Stat Lab 06/24/23 10:05 Completed CMP Stat Lab 06/24/23 10:30 Completed CULTURE,URINE Stat Lab 06/24/23 11:46 Received PROTIME WITH INR Stat Lab 06/24/23 10:30 Completed T4 (Thyroxine) Stat Lab 06/24/23 10:30 Completed TSH, 3RD Generation Stat Lab 06/24/23 10:30 Completed UA W/RFX UR CULTURE Stat Lab 06/24/23 11:46 Completed Medication Summary Generic Name Dose Route Start Last Admin Trade Name Freq PRN Reason Stop Dose Admin Sodium Chloride 1,000 mls @ 100 mls/hr 06/24/23 10:15 06/24/23 10:38 Sodium Chloride 0.9% 1000 Ml IV 07/24/23 10:14 100 mls/hr .Q10H CORNELIA Administration Lab/Rad Data: Laboratory Result Diagrams 06/24/23 10:05 06/24/23 10:30 Laboratory Results 06/24/23 06/24/23 06/24/23 Range/Units 11:46 10:30 10:30 WBC (4.0-10.5) x10^3/uL RBC (4.1-5.4) x10^6/uL Hgb (12.0-16.0) g/dL Hct (35-47) % MCV (78-100) fL MCH (26-32) pg MCHC (32-36) g/dL RDW (11.5-14.0) % Plt Count (150-450) x10^3/uL MPV (7.5-11.0) fL Gran % (36.0-66.0) % Immature Gran % (Auto) (0.00-0.4) % Nucleat RBC Rel Count (0.00-0.1) % Eos # (Auto) (0-0.5) x10^3/uL Immature Gran # (Auto) (0.00-0.03) x10^3u/L Absolute Lymphs (auto) (1.0-4.6) x10^3/uL Absolute Monos (auto) (0.0-1.3) x10^3/uL Absolute Nucleated RBC (0.00-0.01) x10^3u/L Lymphocytes % (24.0-44.0) % Monocytes % (0.0-12.0) % Eosinophils % (0.00-5.0) % Basophils % (0.0-0.4) % Absolute Granulocytes (1.4-6.9) x10^3/uL Basophils # (0-0.4) x10^3/uL PT (9.4-12.5) SECONDS INR (0.8-3.0) Sodium (137-145) mmol/L Potassium (3.5-5.1) mmol/L Chloride (98-107) mmol/L Carbon Dioxide (22-30) mmol/L Anion Gap (5-15) MEQ/L BUN (7-17) mg/dL Creatinine (0.52-1.04) mg/dL Estimated GFR ML/MIN Glucose (74-106) mg/dL Calcium (8.4-10.2) mg/dL Total Bilirubin (0.2-1.3) mg/dL AST (14-36) U/L ALT (0-35) U/L Alkaline Phosphatase (38-126) U/L Ammonia < 9 L (9-30) umol/L Serum Total Protein (6.3-8.2) g/dL Albumin (3.5-5.0) g/dL Thyroxine (T4) (5.53-10.96) ug/dL TSH 3rd Generation (0.47-4.68) mIU/L Urine Color Yellow (Yellow) Urine Appearance Clear (Clear) Urine pH 6.0 (4.6-8.0) Ur Specific [place] 1.010 (1.005-1.030) Urine Protein Negative (Negative) Urine Glucose (UA) Negative (Negative) mg/dL Urine Ketones Negative (Negative) Urine Blood Negative (Negative) Urine Nitrite Negative (Negative) Urine Bilirubin Negative (Negative) Urine Urobilinogen 1.0 A (0.2) mg/dL Ur Leukocyte Esterase Negative (Negative) U Hyaline Cast (Auto) NONE SEEN (0-2) /LPF Urine Microscopic RBC 0-2 (0-5) /HPF Urine Microscopic WBC 0-2 (0-5) /HPF Ur Epithelial Cells None Seen (None Seen) /HPF Urine Bacteria None Seen (None Seen) /HPF Urine Culture Reflexed ORDERED SEPARATELY (NO) Valproic Acid (50-100) ug/mL Influenza Type A Ag NEGATIVE (NEGATIVE) Influenza Type B Ag NEGATIVE (NEGATIVE) RSV (PCR) NEGATIVE (NEGATIVE) SARS-CoV-2 (PCR) NEGATIVE (NEGATIVE) 06/24/23 06/24/23 06/24/23 Range/Units 10:30 10:30 10:30 WBC (4.0-10.5) x10^3/uL RBC (4.1-5.4) x10^6/uL Hgb (12.0-16.0) g/dL Hct (35-47) % MCV (78-100) fL MCH (26-32) pg MCHC (32-36) g/dL RDW (11.5-14.0) % Plt Count (150-450) x10^3/uL MPV (7.5-11.0) fL Gran % (36.0-66.0) % Immature Gran % (Auto) (0.00-0.4) % Nucleat RBC Rel Count (0.00-0.1) % Eos # (Auto) (0-0.5) x10^3/uL Immature Gran # (Auto) (0.00-0.03) x10^3u/L Absolute Lymphs (auto) (1.0-4.6) x10^3/uL Absolute Monos (auto) (0.0-1.3) x10^3/uL Absolute Nucleated RBC (0.00-0.01) x10^3u/L Lymphocytes % (24.0-44.0) % Monocytes % (0.0-12.0) % Eosinophils % (0.00-5.0) % Basophils % (0.0-0.4) % Absolute Granulocytes (1.4-6.9) x10^3/uL Basophils # (0-0.4) x10^3/uL PT 12.5 (9.4-12.5) SECONDS INR 1.16 (0.8-3.0) Sodium 140 (137-145) mmol/L Potassium 3.9 (3.5-5.1) mmol/L Chloride 103 (98-107) mmol/L Carbon Dioxide 28 (22-30) mmol/L Anion Gap 11.9 (5-15) MEQ/L BUN 40 H (7-17) mg/dL Creatinine 1.36 H (0.52-1.04) mg/dL Estimated GFR 40.6 ML/MIN Glucose 190 H (74-106) mg/dL Calcium 8.6 (8.4-10.2) mg/dL Total Bilirubin 0.80 (0.2-1.3) mg/dL AST 37 H (14-36) U/L ALT 21 (0-35) U/L Alkaline Phosphatase 115 (38-126) U/L Ammonia (9-30) umol/L Serum Total Protein 7.2 (6.3-8.2) g/dL Albumin 3.7 (3.5-5.0) g/dL Thyroxine (T4) 5.45 L (5.53-10.96) ug/dL TSH 3rd Generation 3.530 (0.47-4.68) mIU/L Urine Color (Yellow) Urine Appearance (Clear) Urine pH (4.6-8.0) Ur Specific [place] (1.005-1.030) Urine Protein (Negative) Urine Glucose (UA) (Negative) mg/dL Urine Ketones (Negative) Urine Blood (Negative) Urine Nitrite (Negative) Urine Bilirubin (Negative) Urine Urobilinogen (0.2) mg/dL Ur Leukocyte Esterase (Negative) U Hyaline Cast (Auto) (0-2) /LPF Urine Microscopic RBC (0-5) /HPF Urine Microscopic WBC (0-5) /HPF Ur Epithelial Cells (None Seen) /HPF Urine Bacteria (None Seen) /HPF Urine Culture Reflexed (NO) Valproic Acid 25.9 L (50-100) ug/mL Influenza Type A Ag (NEGATIVE) Influenza Type B Ag (NEGATIVE) RSV (PCR) (NEGATIVE) SARS-CoV-2 (PCR) (NEGATIVE) 06/24/23 Range/Units 10:05 WBC 6.2 (4.0-10.5) x10^3/uL RBC 3.43 L (4.1-5.4) x10^6/uL Hgb 9.8 L (12.0-16.0) g/dL Hct 31.8 L (35-47) % MCV 92.7 (78-100) fL MCH 28.6 (26-32) pg MCHC 30.8 L (32-36) g/dL RDW 18.8 H (11.5-14.0) % Plt Count 182 (150-450) x10^3/uL MPV 11.2 H (7.5-11.0) fL Gran % 69.3 H (36.0-66.0) % Immature Gran % (Auto) 0.3 (0.00-0.4) % Nucleat RBC Rel Count 0.0 (0.00-0.1) % Eos # (Auto) 0.05 (0-0.5) x10^3/uL Immature Gran # (Auto) 0.02 (0.00-0.03) x10^3u/L Absolute Lymphs (auto) 1.52 (1.0-4.6) x10^3/uL Absolute Monos (auto) 0.30 (0.0-1.3) x10^3/uL Absolute Nucleated RBC 0.00 (0.00-0.01) x10^3u/L Lymphocytes % 24.5 (24.0-44.0) % Monocytes % 4.8 (0.0-12.0) % Eosinophils % 0.8 (0.00-5.0) % Basophils % 0.3 (0.0-0.4) % Absolute Granulocytes 4.30 (1.4-6.9) x10^3/uL Basophils # 0.02 (0-0.4) x10^3/uL PT (9.4-12.5) SECONDS INR (0.8-3.0) Sodium (137-145) mmol/L Potassium (3.5-5.1) mmol/L Chloride (98-107) mmol/L Carbon Dioxide (22-30) mmol/L Anion Gap (5-15) MEQ/L BUN (7-17) mg/dL Creatinine (0.52-1.04) mg/dL Estimated GFR ML/MIN Glucose (74-106) mg/dL Calcium (8.4-10.2) mg/dL Total Bilirubin (0.2-1.3) mg/dL AST (14-36) U/L ALT (0-35) U/L Alkaline Phosphatase (38-126) U/L Ammonia (9-30) umol/L Serum Total Protein (6.3-8.2) g/dL Albumin (3.5-5.0) g/dL Thyroxine (T4) (5.53-10.96) ug/dL TSH 3rd Generation (0.47-4.68) mIU/L Urine Color (Yellow) Urine Appearance (Clear) Urine pH (4.6-8.0) Ur Specific [place] (1.005-1.030) Urine Protein (Negative) Urine Glucose (UA) (Negative) mg/dL Urine Ketones (Negative) Urine Blood (Negative) Urine Nitrite (Negative) Urine Bilirubin (Negative) Urine Urobilinogen (0.2) mg/dL Ur Leukocyte Esterase (Negative) U Hyaline Cast (Auto) (0-2) /LPF Urine Microscopic RBC (0-5) /HPF Urine Microscopic WBC (0-5) /HPF Ur Epithelial Cells (None Seen) /HPF Urine Bacteria (None Seen) /HPF Urine Culture Reflexed (NO) Valproic Acid (50-100) ug/mL Influenza Type A Ag (NEGATIVE) Influenza Type B Ag (NEGATIVE) RSV (PCR) (NEGATIVE) SARS-CoV-2 (PCR) (NEGATIVE) - Progress Progress Note: 06/24/23 10:01 This patient's medical issue is 1 of moderate to high complexity. Level complexity in the workup performed is based on review of the patient's past medical history, review of the patient's medication list, review the patient's drug allergy list, history of present illness and physical findings on examination. The workup includes placement of intravenous line, twelve-lead EKG, CT scan of the head, urinalysis, ammonia level, Depakote level, thyroid studies, CBC, CMP and viral studies. 06/24/23 12:03 I interpreted the patient's laboratory data. There is no emergent lab values present. We are awaiting the urinalysis. Patient has chronic anemia. Her hemoglobin 9.8 is within her usual range. She does have chronic renal disease as well. Her GFR is not of an emergent level. Her Depakote level is low and this needs to be addressed as an outpatient. Her slightly low T4 level can be addressed as an outpatient. CT scan of the head was interpreted by the radiologist and I reviewed the impression. Impression states age-appropriate brain changes. There is no ischemic infarction present. There is no evidence of any intracranial bleed. There is no evidence of an acute intracranial abnormality 06/24/23 12:20 There is no evidence of any acute, emergent medical issue other than possibly cellulitis of her lower extremities. We will treat that with Levaquin 500 mg orally each day. Patient's GFR is 40. No adjustment in the Levaquin dosing is necessary. Counseled pt/family regarding: lab results, diagnosis, rad results Medical Desision Making - Independent Historian Additional History obtained from: Relative/friend - Diagnostic Testing Diagnostic test were ordered, analyzed, and reviewed by me: Yes Radiological Interpretation: Reviewed by me, Teleradiologist Report - Risk of complications The pt has a mod risk of morbidity or mortality based on: Need for prescription drug management - Departure Departure Disposition: Home Clinical Impression: Confusion, Cellulitis Condition: Stable Critical Care Time: No Referrals: KATHLEEN JAMES DO [Primary Care Provider] - Follow up/PCP as directed Additional Instructions: Drink plenty fluids. Take your medication as prescribed. Follow-up with your primary care provider by phone on 06/26/2023, to make arranges for further evaluation and management. Prescriptions: Levofloxacin [Levaquin 500 MG Tablet] 500 mg PO DAILY #7 tablet
[2023-06-24 09:55] VITALS: TEMP 96.8
[2023-06-24] MEDS ORDERED: Sodium Chloride 0.9% 1000 ML 1,000 ML IV SCH (10:15)
[2023-06-24] MEDS ORDERED: Sodium Chloride 0.9% 1000 ML 1,000 ML ONE (10:36)
[2023-06-24 10:54] LABS: BASOPHIL % 0.3 % (0.0-0.4); Basophil (Absolute #) 0.02 x10^3/uL (0-0.4); Eosinophil % 0.8 % (0.00-5.0); Eosinophil (Absolute #) 0.05 x10^3/uL (0-0.5); Hematocrit 31.8 % (35-47); Hemoglobin 9.8 g/dL (12.0-16.0); IMMATURE GRAN # 0.02 x10^3u/L (0.00-0.03); IMMATURE GRAN % 0.3 % (0.00-0.4); Lymphocyte (Absolute #) 1.52 x10^3/uL (1.0-4.6); Lymphocytes % 24.5 % (24.0-44.0); Mean Cell Volume 92.7 fL (78-100); Mean Corpuscular Hemoglobin 28.6 pg (26-32); Mean Corpuscular Hgb Concent. 30.8 g/dL (32-36); Mean Platelet Volume 11.2 fL (7.5-11.0); Monocytes % 4.8 % (0.0-12.0); Neutrophil % 69.3 % (36.0-66.0); Platelet Count 182 x10^3/uL (150-450); Red Blood Count 3.43 x10^6/uL (4.1-5.4); Red Cell Distribution Width 18.8 % (11.5-14.0); White Blood Count 6.2 x10^3/uL (4.0-10.5)
[2023-06-24 11:07] LABS: INR 1.16 (0.8-3.0); PROTIME 12.5 SECONDS (9.4-12.5)
[2023-06-24 11:31] LABS: INFLUENZA A NEGATIVE (NEGATIVE); INFLUENZA B NEGATIVE (NEGATIVE); RESPIRATORY SYNCTIAL VIRUS NEGATIVE (NEGATIVE); SARS-CoV-2 Xpert Express NEGATIVE (NEGATIVE)
[2023-06-24 11:41] LABS: ALBUMIN 3.7 g/dL (3.5-5.0); ANION GAP 11.9 MEQ/L (5-15); BILIRUBIN,TOTAL 0.8 mg/dL (0.2-1.3); Calcium 8.6 mg/dL (8.4-10.2); Creatinine 1 1.36 mg/dL (0.52-1.04); EST GLOMERULAR FILTRATION RATE 40.6 ML/MIN; Potassium 3.9 mmol/L (3.5-5.1); T4 (Thyroxine) 5.45 ug/dL (5.53-10.96); TSH, 3RD Generation 3.53 mIU/L (0.47-4.68); Total Protein 7.2 g/dL (6.3-8.2)
--- NOTE | 2023-06-24 11:58 | XRAY ---
CLINICAL HISTORY:Confusion COMPARISON:None. TECHNIQUE:Axial non-contrast CT scan of the brain was performed from the skull base to the high parietal region. CTDI: 53.92, DLP: 1002.79, FINDINGS: No definite calvarial fractures seen. No intra and extra axial cerebral hematoma seen. No territorial ischemic infarction seen. Age appropriate brain involutional changes seen as evident by prominent intra and extra axial CSF spaces. White matter hypodensity seen of chronic microvascular ischemic changes. No midline shifts or deformity. Normal CT appearance of the posterior fossa structures namely the cerebellar hemispheres, brainstem and cerebellar peduncles. Scanned paranasal sinuses are clear. Few tiny 2 mm hyperdense foci are seen scattered in the subarachnoid space of the right cerebral hemisphere likely related to old myodil injection. A small falcine lipoma is noted. IMPRESSION: 1. No definite calvarial fractures seen. 2. No intra and extra axial cerebral hematoma seen. 3. No territorial ischemic infarction seen. 4. Mild age-appropriate brain involutional changes and chronic microvascular ischemic changes. Electronically Signed by: Randy Sheppard MD. (06/24/2023 11:53:56 EST)
[2023-06-24 12:16] LABS: ADD URINE CULTURE? ORDERED SEPARATELY (NO); Appearance Clear (Clear); Bacteria None Seen /HPF (None Seen); Bilirubin Negative (Negative); Blood Negative (Negative); Epithelial Cells None Seen /HPF (None Seen); Glucose, Urine Negative (Negative); Hyaline Casts NONE SEEN /LPF (0-2); Ketones Negative (Negative); Leukocyte Esterase Negative (Negative); Nitrite Negative (Negative); Protein,Urine Dip Negative (Negative); RBC 0-2 /HPF (0-5); WBC 0-2 /HPF (0-5)
[2023-06-24] MEDS ORDERED: Levofloxacin 500 MG Tablet PO ONE (12:17)
[2023-06-24] MEDS ORDERED: Levofloxacin 500 MG Tablet ONE (12:25)
[2023-06-24 13:11] VITALS: BP 111/67; PULSE 70; RESP 18; O2SAT 97
== END 2023-06-24 13:12 | disposition home or self-care (01) ==
LOC: ED 09:30
DX: R41.0 Disorientation, unspecified (principal); L03.116 Cellulitis of left lower limb; L03.115 Cellulitis of right lower limb; E78.5 Hyperlipidemia, unspecified; E11.9 Type 2 diabetes mellitus without complications; I10 Essential (primary) hypertension; Z79.01 Long term (current) use of anticoagulants; Z79.85 Long-term (current) use of injectable non-insulin antidiabetic drugs; Z79.4 Long term (current) use of insulin; Z79.899 Other long term (current) drug therapy; Z20.828 Contact with and (suspected) exposure to other viral communicable diseases
CPT/HCPCS: 0241U; 36415; 70450; 80053; 80164; 81001; 82140; 84436; 84443; 85025; 85610; 87040; 87086; 93005; 94760; 99284; A9270-GY

== ENCOUNTER 2023-12-24 07:54 | Inpatient (IN) | payer MEDICARE ==
--- NOTE | 2023-12-24 08:09 | ERPHSYRPT ---
- History of Present Illness Time Seen by Provider: 12/24/23 07:59 Source: patient, EMS Exam Limitations: no limitations Physician History: Pt is fdc pt who was noted to be a little off yesterday but defintely a change in mental status to disorientation today by her regular nursing staff. She may have slight minimal asymmetry to left mouth edge versus residual from a prior CVA of record. She is noted to have had increased drainage and oder from her chronic leg wounds by hx and found on exam today. No CP, Headache, SObreath, or abd pain. No hx trauma. Pt is on Xarelto as blood thinner. She has Diabetes. Glucose was 193. No recent medication changes known/rep[orted. EMS serves as independent source to confirm Hx. Discussed risks/benefits of testing and Tx with pt and available family and they wish to proceed with rocephin, freedman, IV, CBC,CMP, Thyroid, EKG, Trop, BNP, Lactate, UA, CT Legs and head and so these are ordered. Results discussed with pt and available family. No arm drift. No definite facial weakness. left scientific writer slightly less than right but may be normal for this person. PERRL EOM full, FUndi benign. Swallowing OK. CHest clear with occas irreg beat. Abd soft nontender without mass or peritoneal signs. Ext as above draining bilateral foul smelling leg wounds - will do CT to rule out SQ air and look for abscesses. The daughter says that the patient gets confused like this whenever there is sepsis or infection. Timing/Duration: yesterday, worse Severity: moderate Associated Symptoms: denies symptoms, No vomiting, No abdominal pain, No cough, No chest pain, No rash, No syncope, No weakness Allergies/Adverse Reactions: oxycodone Allergy (Severe, Verified 12/24/23 07:56) Itching Home Medications: Aspirin EC 81 mg [Ecotrin 81 mg] 81 mg PO DAILY 04/17/22 [History] Atorvastatin Calcium 80 mg PO QHS 04/17/22 [History] Duloxetine HCl 30 mg PO DAILY 04/17/22 [History] Furosemide 60 mg PO DAILY 04/17/22 [History] Metoprolol Tartrate 25 mg PO BID 04/17/22 [History] Pramipexole Di-HCl [Pramipexole Dihydrochloride] 1 mg PO TID 04/17/22 [History] Rivaroxaban [Xarelto] 15 mg PO EVENING MEAL 04/17/22 [History] Insulin Glargine,Hum.rec.anlog [Lantus] 12 unit SQ QHS 05/26/23 [History] Loperamide HCl 2 mg [Imodium 2 mg] 2 mg PO PRN PRN 05/26/23 [History] Melatonin 3 mg PO QHS 05/26/23 [History] Pregabalin 50 mg [Lyrica 50MG] 50 mg PO TID 05/26/23 [History] Allopurinol 100 mg [Zyloprim 100 mg] 100 mg PO DAILY 06/24/23 [History] Amitriptyline HCl 10 mg [Elavil 10 mg] 10 mg PO HS 06/24/23 [History] Bisacodyl 10 mg [Dulcolax 10 MG SUPP] 10 mg RC DAILY 12/24/23 [History] Calcium Carb/Vitamin D3/Vit K2 [Calcium Plus Menaq7 Adult Tab] 1 ea DAILY 12/24/23 [History] Cholecalciferol (Vitamin D3) [Thera-D] 100 mcg PO DAILY 12/24/23 [History] Divalproex Sodium ER 250 mg [Depakote EXTENDED RELEASE 250 MG] 750 mg PO DAILY 12/24/23 [History] Duloxetine HCl 30 mg [Cymbalta 30 MG Capsule] 90 mg PO DAILY 12/24/23 [History] Exenatide Microspheres [Bydureon Bcise] 2 mg SQ UD 12/24/23 [History] Ferrous Sulfate 325 mg [Feosol 325 mg] 325 mg PO DAILY 12/24/23 [History] Hydrophilic Cream [Triad] 71 gm TP BID 12/24/23 [History] Lanolin Alcohol/Mo/W.pet/[place] [Eucerin Cream] 1 ea DAILY 12/24/23 [History] Levothyroxine Sodium [Levothyroxine] 25 mcg PO DAILY 12/24/23 [History] Lipase/Protease/Amylase [Creon Dr 24,000 Unit Capsule] 1 ea DAILY 12/24/23 [History] Lubiprostone 8 mcg PO BID 12/24/23 [History] Mirabegron [Myrbetriq] 25 mg PO DAILY 12/24/23 [History] Multivitamin [Multi-Vitamin Daily] 1 each PO DAILY 12/24/23 [History] Ubidecarenone/Vit E Acet [Co Q-10 100 mg Softgel] 1 ea DAILY 12/24/23 [History] Hx Tetanus, Diphtheria Vaccination/Date Given: No Hx Influenza Vaccination/Date Given: Yes Hx Pneumococcal Vaccination/Date Given: No - Review of Systems Constitutional: Fever, No Chills Eyes: No Symptoms Ears, Nose, & Throat: No Symptoms Respiratory: No Cough, No Dyspnea Cardiac: No Chest Pain, No Edema, No Syncope Abdominal/Gastrointestinal: No Abdominal Pain, No Nausea, No Vomiting, No Diarrhea Genitourinary Symptoms: No Dysuria Musculoskeletal: No Back Pain, No Neck Pain, No Fall, No Injury Skin: Cellulitis, Other (infected leg wounds bilat), No Rash Neurological: No Dizziness, No Focal Weakness, No Sensory Changes Psychological: No Symptoms Endocrine: No Symptoms Hematologic/Lymphatic: No Symptoms Immunological/Allergic: No Symptoms All Other Systems: Reviewed and Negative - Past Medical History Pertinent Past Medical History: Yes Neurological History: Migraines, TIA, Other ENT History: No Pertinent History Cardiac History: High Cholesterol, Hypertension, Other Respiratory History: No Pertinent History Endocrine Medical History: Diabetes Type II Musculoskeletal History: No Pertinent History, Degenerative Disk Disease GI Medical History: Crohns Disease, Irritable Bowel History: No Pertinent History Psycho-Social History: No Pertinent History Female Reproductive Disorders: No Pertinent History Other Medical History: NEUROPATHY - Past Surgical History Past Surgical History: Yes Neuro Surgical History: No Pertinent History Cardiac: Pacemaker Respiratory: No Pertinent History Gastrointestinal: Appendectomy, Cholecystectomy Genitourinary: No Pertinent History Musculoskeletal: Joint Replacement, Orthopedic Surgery Female Surgical History: No Pertinent History Other Surgical History: BARIATRIC SURG,CARPAL TUNNEL - Social History Smoking Status: Never smoker Exposure to second hand smoke: No Drug Use: none Patient Lives Alone: No - Nursing Vital Signs Nursing Vital Signs: Initial Vital Signs Temperature 100.5 F 12/24/23 07:59 Pulse Rate 90 12/24/23 07:59 Respiratory Rate 18 12/24/23 07:59 Blood Pressure 103/68 12/24/23 07:59 O2 Sat by Pulse Oximetry 99 12/24/23 07:59 Pain Scale Pain Intensity 3 - Physical Exam General Appearance: no apparent distress, alert Eye Exam: PERRL/EOMI, eyes nml inspection Ears, Nose, Throat Exam: normal ENT inspection, TMs normal, pharynx normal, moist mucous membranes Neck Exam: normal inspection, non-tender, supple, full range of motion Respiratory Exam: normal breath sounds, lungs clear, No respiratory distress Cardiovascular Exam: regular rate/rhythm, normal heart sounds, normal peripheral pulses, other (occasional irreg beat - ) Gastrointestinal/Abdomen Exam: soft, normal bowel sounds, No tenderness, No distention, No mass, No guarding, No pulsatile mass, No rebound Pelvic Exam: deferred Rectal Exam: deferred Back Exam: normal inspection, normal range of motion, No CVA tenderness, No vertebral tenderness Extremity Exam: normal range of motion, pelvis stable, inflammation, swelling, other (bilateral lower leg anterior infected draining wounds with erythema and hot to touch) Neurologic Exam: alert, cooperative, machine ii engraver II-XII nml as tested, normal moo d/affect, nml cerebellar function, nml station & gait, sensation nml, disoriented, confusion, No motor deficits, No sensory deficit, No motor weakness, No facial droop, No slurred speech, No aphasia, No dysarthria, No EOM palsy Skin Exam: normal color, warm, dry, No rash Lymphatic Exam: No adenopathy SpO2 Interpretation: normal SpO2: 99 O2 Delivery: Room Air - Course Nursing assessment & vital signs reviewed: Yes EKG Interpreted by Me: Sinus Rhythm, Right Independence Deviation, Right Bundle Branch Block, Non-specific ST Changes, Other (APCs) - Radiology Exams Chest X-ray Interpretation: Interpreted by me, Reviewed by me, No Pneumothorax, Other (no major infiltrates, cardiac pacer, granulomas, interstitial markings) - CT Exams Right Lower Extremity CT Interpretation: Tele-radiologist Report, Other (SQ infection - no abscess or SQ air) Left Lower Extremity CT Interpretation: Tele-radiologist Report, Other (SQ swelling no gas, No collections seen.) Head CT Interpretation: Tele-radiologist Report, Other (microvascular changes-no large CVA or hematomas seen per rad report) Ordered Tests: Active Orders 24 hr Category Date Time Status EKG-ER Only STAT Care 12/24/23 08:12 Active CHEST 1 VIEW (PORTABLE) Stat Exams 12/24/23 08:13 Taken HEAD WITHOUT CONTRAST [CT] Stat Exams 12/24/23 08:10 Completed LOWER EXTREMITY WO CONTRAST [CT] Stat Exams 12/24/23 08:11 Completed LOWER EXTREMITY WO CONTRAST [CT] Stat Exams 12/24/23 08:18 Completed BLOOD CULTURE Stat Lab 12/24/23 08:30 Received BNPII [NT PRO BNPII] Stat Lab 12/24/23 Ordered CBC W DIFF Stat Lab 12/24/23 08:30 Completed CMP Stat Lab 12/24/23 08:30 Completed CULTURE,URINE Stat Lab 12/24/23 Received CULTURE,WOUND Stat Lab 12/24/23 09:12 Received Lactic Acid Stat Lab 12/24/23 08:12 Completed Lactic Acid Stat Lab 12/24/23 10:43 Stop Req TROPONIN Q4H Lab 12/24/23 08:30 Completed TROPONIN Q4H Lab 12/24/23 11:55 Received TROPONIN Q4H Lab 12/24/23 16:15 Ordered TSH, 3RD Generation Stat Lab 12/24/23 08:30 Completed UA W/RFX UR CULTURE Stat Lab 12/24/23 Completed Medication Summary Generic Name Dose Route Start Last Admin Trade Name Freq PRN Reason Stop Dose Admin Sodium Chloride 1,000 mls @ 100 mls/hr 12/24/23 08:15 12/24/23 09:56 Sodium Chloride 0.9% 1000 Ml IV 01/23/24 08:14 100 mls/hr .Q10H CORNELIA Administration Discontinued Medications Generic Name Dose Route Start Last Admin Trade Name Freq PRN Reason Stop Dose Admin Ceftriaxone Sodium 1 gm in 100 mls @ 200 mls/hr 12/24/23 08:12 12/24/23 10:07 Rocephin 1 Gm / 100 Ml Nacl IV 12/24/23 08:41 Infused STAT ONE Infusion Ceftriaxone Sodium Confirm 12/24/23 08:15 Rocephin 1 Gm / 100 Ml Nacl Administered 12/24/23 08:16 Dose 1 gm in 100 mls @ ud IV .STK-MED ONE Vancomycin HCl 1 gm in 200 mls @ 125 mls/hr 12/24/23 08:26 12/24/23 09:56 Vancomycin 1 Gram/200 Ml Bag IV 12/24/23 10:01 125 ml/hr STAT ONE 125 mls/hr Administration Vancomycin HCl Confirm 12/24/23 09:52 Vancomycin 1 Gram/200 Ml Bag Administered 12/24/23 09:53 Dose 1 gm in 200 mls @ ud IV .STK-MED ONE Lab/Rad Data: Laboratory Result Diagrams 12/24/23 08:30 12/24/23 08:30 Laboratory Results 12/24/23 12/24/23 12/24/23 Range/Units Unknown 08:32 08:30 WBC (4.0-10.5) x10^3/uL RBC (4.1-5.4) x10^6/uL Hgb (12.0-16.0) g/dL Hct (35-47) % MCV (78-100) fL MCH (26-32) pg MCHC (32-36) g/dL RDW (11.5-14.0) % Plt Count (150-450) x10^3/uL MPV (7.5-11.0) fL Gran % (36.0-66.0) % Immature Gran % (Auto) (0.00-0.4) % Nucleat RBC Rel Count (0.00-0.1) % Eos # (Auto) (0-0.5) x10^3/uL Immature Gran # (Auto) (0.00-0.03) x10^3u/L Absolute Lymphs (auto) (1.0-4.6) x10^3/uL Absolute Monos (auto) (0.0-1.3) x10^3/uL Absolute Nucleated RBC (0.00-0.01) x10^3u/L Lymphocytes % (24.0-44.0) % Monocytes % (0.0-12.0) % Eosinophils % (0.00-5.0) % Basophils % (0.0-0.4) % Absolute Granulocytes (1.4-6.9) x10^3/uL Basophils # (0-0.4) x10^3/uL Sodium (135-145) mmol/L Potassium (3.5-5.1) mmol/L Chloride (98-107) mmol/L Carbon Dioxide (22-30) mmol/L Anion Gap (5-15) MEQ/L BUN (7-17) mg/dL Creatinine (0.52-1.04) mg/dL Estimated GFR ML/MIN Glucose (74-106) mg/dL Lactic Acid (0.4-2.0) Calcium (8.4-10.2) mg/dL Total Bilirubin (0.2-1.3) mg/dL AST (14-36) U/L ALT (0-35) U/L Alkaline Phosphatase (38-126) U/L Troponin I (0.000-0.033) ng/mL Serum Total Protein (6.3-8.2) g/dL Albumin (3.5-5.0) g/dL Free T4 1.13 (0.78-2.19) ng/dL TSH 3rd Generation (0.470-4.680) mIU/L Urine Color Yellow (Yellow) Urine Appearance Clear (Clear) Urine pH 8.5 A (4.6-8.0) Ur Specific [place] 1.020 (1.005-1.030) Urine Protein 100 A (Negative) Urine Glucose (UA) Negative (Negative) mg/dL Urine Ketones Trace A (Negative) Urine Blood Negative (Negative) Urine Nitrite Negative (Negative) Urine Bilirubin Negative (Negative) Urine Urobilinogen 1.0 A (0.2) mg/dL Ur Leukocyte Esterase Negative (Negative) U Hyaline Cast (Auto) NONE SEEN (0-2) /LPF Urine Microscopic RBC 11-20 A (0-5) /HPF Urine Microscopic WBC 0-2 (0-5) /HPF Ur Epithelial Cells None Seen (None Seen) /HPF Urine Bacteria None Seen (None Seen) /HPF Urine Culture Reflexed NO (NO) Influenza Type A Ag NEGATIVE (NEGATIVE) Influenza Type B Ag NEGATIVE (NEGATIVE) RSV (PCR) NEGATIVE (NEGATIVE) SARS-CoV-2 (PCR) NEGATIVE (NEGATIVE) 12/24/23 12/24/23 12/24/23 Range/Units 08:30 08:30 08:30 WBC 7.2 (4.0-10.5) x10^3/uL RBC 3.62 L (4.1-5.4) x10^6/uL Hgb 11.1 L (12.0-16.0) g/dL Hct 34.4 L (35-47) % MCV 95.0 (78-100) fL MCH 30.7 (26-32) pg MCHC 32.3 (32-36) g/dL RDW 15.6 H (11.5-14.0) % Plt Count 177 (150-450) x10^3/uL MPV 9.9 (7.5-11.0) fL Gran % 79.8 H (36.0-66.0) % Immature Gran % (Auto) 0.3 (0.00-0.4) % Nucleat RBC Rel Count 0.0 (0.00-0.1) % Eos # (Auto) 0 (0-0.5) x10^3/uL Immature Gran # (Auto) 0.02 (0.00-0.03) x10^3u/L Absolute Lymphs (auto) 1.07 (1.0-4.6) x10^3/uL Absolute Monos (auto) 0.36 (0.0-1.3) x10^3/uL Absolute Nucleated RBC 0.00 (0.00-0.01) x10^3u/L Lymphocytes % 14.8 L (24.0-44.0) % Monocytes % 5.0 (0.0-12.0) % Eosinophils % 0.0 (0.00-5.0) % Basophils % 0.1 (0.0-0.4) % Absolute Granulocytes 5.77 (1.4-6.9) x10^3/uL Basophils # 0.01 (0-0.4) x10^3/uL Sodium 140 (135-145) mmol/L Potassium 3.6 (3.5-5.1) mmol/L Chloride 104 (98-107) mmol/L Carbon Dioxide 30 (22-30) mmol/L Anion Gap 9.6 (5-15) MEQ/L BUN 22 H (7-17) mg/dL Creatinine 1.13 H (0.52-1.04) mg/dL Estimated GFR 50.4 ML/MIN Glucose 133 H (74-106) mg/dL Lactic Acid (0.4-2.0) Calcium 8.7 (8.4-10.2) mg/dL Total Bilirubin 1.30 (0.2-1.3) mg/dL AST 35 (14-36) U/L ALT 26 (0-35) U/L Alkaline Phosphatase 90 (38-126) U/L Troponin I 0.024 (0.000-0.033) ng/mL Serum Total Protein 7.3 (6.3-8.2) g/dL Albumin 3.5 (3.5-5.0) g/dL Free T4 (0.78-2.19) ng/dL TSH 3rd Generation 1.238 (0.470-4.680) mIU/L Urine Color (Yellow) Urine Appearance (Clear) Urine pH (4.6-8.0) Ur Specific [place] (1.005-1.030) Urine Protein (Negative) Urine Glucose (UA) (Negative) mg/dL Urine Ketones (Negative) Urine Blood (Negative) Urine Nitrite (Negative) Urine Bilirubin (Negative) Urine Urobilinogen (0.2) mg/dL Ur Leukocyte Esterase (Negative) U Hyaline Cast (Auto) (0-2) /LPF Urine Microscopic RBC (0-5) /HPF Urine Microscopic WBC (0-5) /HPF Ur Epithelial Cells (None Seen) /HPF Urine Bacteria (None Seen) /HPF Urine Culture Reflexed (NO) Influenza Type A Ag (NEGATIVE) Influenza Type B Ag (NEGATIVE) RSV (PCR) (NEGATIVE) SARS-CoV-2 (PCR) (NEGATIVE) 12/24/23 Range/Units 08:12 WBC (4.0-10.5) x10^3/uL RBC (4.1-5.4) x10^6/uL Hgb (12.0-16.0) g/dL Hct (35-47) % MCV (78-100) fL MCH (26-32) pg MCHC (32-36) g/dL RDW (11.5-14.0) % Plt Count (150-450) x10^3/uL MPV (7.5-11.0) fL Gran % (36.0-66.0) % Immature Gran % (Auto) (0.00-0.4) % Nucleat RBC Rel Count (0.00-0.1) % Eos # (Auto) (0-0.5) x10^3/uL Immature Gran # (Auto) (0.00-0.03) x10^3u/L Absolute Lymphs (auto) (1.0-4.6) x10^3/uL Absolute Monos (auto) (0.0-1.3) x10^3/uL Absolute Nucleated RBC (0.00-0.01) x10^3u/L Lymphocytes % (24.0-44.0) % Monocytes % (0.0-12.0) % Eosinophils % (0.00-5.0) % Basophils % (0.0-0.4) % Absolute Granulocytes (1.4-6.9) x10^3/uL Basophils # (0-0.4) x10^3/uL Sodium (135-145) mmol/L Potassium (3.5-5.1) mmol/L Chloride (98-107) mmol/L Carbon Dioxide (22-30) mmol/L Anion Gap (5-15) MEQ/L BUN (7-17) mg/dL Creatinine (0.52-1.04) mg/dL Estimated GFR ML/MIN Glucose (74-106) mg/dL Lactic Acid 2.0 (0.4-2.0) Calcium (8.4-10.2) mg/dL Total Bilirubin (0.2-1.3) mg/dL AST (14-36) U/L ALT (0-35) U/L Alkaline Phosphatase (38-126) U/L Troponin I (0.000-0.033) ng/mL Serum Total Protein (6.3-8.2) g/dL Albumin (3.5-5.0) g/dL Free T4 (0.78-2.19) ng/dL TSH 3rd Generation (0.470-4.680) mIU/L Urine Color (Yellow) Urine Appearance (Clear) Urine pH (4.6-8.0) Ur Specific [place] (1.005-1.030) Urine Protein (Negative) Urine Glucose (UA) (Negative) mg/dL Urine Ketones (Negative) Urine Blood (Negative) Urine Nitrite (Negative) Urine Bilirubin (Negative) Urine Urobilinogen (0.2) mg/dL Ur Leukocyte Esterase (Negative) U Hyaline Cast (Auto) (0-2) /LPF Urine Microscopic RBC (0-5) /HPF Urine Microscopic WBC (0-5) /HPF Ur Epithelial Cells (None Seen) /HPF Urine Bacteria (None Seen) /HPF Urine Culture Reflexed (NO) Influenza Type A Ag (NEGATIVE) Influenza Type B Ag (NEGATIVE) RSV (PCR) (NEGATIVE) SARS-CoV-2 (PCR) (NEGATIVE) - Progress Progress: improved, re-examined Progress Note: 12/24/23 11:47 discussed with family and pt and they agree to admission if approved appropriate by hospitalist. Consultation is placed. 12/24/23 12:13 Dr. Yan responded in consultation and we discussed the pt and findings and results so far and he agrees best to place the patient in and begin antibiotics. 12/24/23 12:17 Adding criticaql care note - pt had drop of bp to 80s early in course and this responded to 250 cc NS bolus and has been fine since, but required some monitoring due to hx CHF. 30-35 minute estimate - discussed with nursing staff and agree. 12/24/23 12:[address] Other (Dr. Yan - Hospitalist) Will see patient in: hospital (observation) Counseled pt/family regarding: lab results, diagnosis, need for follow-up, rad results Medical Desision Making - Independent Historian Additional History obtained from: Family, EMS - Discussion of managment Care discussed with:: hospitalist Reviewed:: Test results, Need for additional workup Agreed on:: Treatment plan, need for follow-up, decision to admit, place in obs Will see patient: in hospital - Diagnostic Testing Diagnostic test were ordered, analyzed, and reviewed by me: Yes Radiological Interpretation: Interpreted by me, Reviewed by me, Teleradiologist Report - Risk of complications The pt has a mod risk of morbidity or mortality based on: Need for prescription drug management The pt has a high risk of morbidity or mortality based on: Decision regarding hospitilization or escalation of hosp level of care - Departure Departure Disposition: Observation Clinical Impression: Cellulitis, Confusion, Bilateral lower leg cellulitis, ALtered mental status as soc. with infect Condition: Good Critical Care Time: Yes Critical Care Time(excluding separately billable procedures): Critical 30-74 mins (BP dropped and bolus for sepsis but close moinitoring due to CHF Hx. 30-35 minutes) Referrals: ENVIVE,ENVIVE [Primary Care Provider] - Follow up/PCP as directed
[2023-12-24] MEDS ORDERED: ROCEPHIN 1 GM / 100 ML NaCl 1 GM/100 ML IVPB IV ONE (08:15)
[2023-12-24] MEDS: ROCEPHIN 1 GM / 100 ML NaCl 1 GM/100 ML IVPB IV ONE (08:23)
[2023-12-24 08:37] LABS: Absolute Neutrophil Ct (ANC) 5.77 x10^3/uL (1.4-6.9); BASOPHIL % 0.1 % (0.0-0.4); Basophil (Absolute #) 0.01 x10^3/uL (0-0.4); Eosinophil (Absolute #) 0 x10^3/uL (0-0.5); Hematocrit 34.4 % (35-47); Hemoglobin 11.1 g/dL (12.0-16.0); IMMATURE GRAN # 0.02 x10^3u/L (0.00-0.03); IMMATURE GRAN % 0.3 % (0.00-0.4); Lymphocyte (Absolute #) 1.07 x10^3/uL (1.0-4.6); Lymphocytes % 14.8 % (24.0-44.0); Mean Corpuscular Hemoglobin 30.7 pg (26-32); Mean Corpuscular Hgb Concent. 32.3 g/dL (32-36); Mean Platelet Volume 9.9 fL (7.5-11.0); Monocyte (Absolute #) 0.36 x10^3/uL (0.0-1.3); Neutrophil % 79.8 % (36.0-66.0); Platelet Count 177 x10^3/uL (150-450); Red Blood Count 3.62 x10^6/uL (4.1-5.4); Red Cell Distribution Width 15.6 % (11.5-14.0); White Blood Count 7.2 x10^3/uL (4.0-10.5)
[2023-12-24 08:53] LABS: Appearance Clear (Clear); Bacteria None Seen /HPF (None Seen); Bilirubin Negative (Negative); Blood Negative (Negative); Epithelial Cells None Seen /HPF (None Seen); Glucose, Urine Negative (Negative); Hyaline Casts NONE SEEN /LPF (0-2); Ketones Trace (Negative); Leukocyte Esterase Negative (Negative); Nitrite Negative (Negative); Ph 8.5 (4.6-8.0); Protein,Urine Dip 100 (Negative); WBC 0-2 /HPF (0-5)
[2023-12-24 09:12] LABS: ADD URINE CULTURE? NO (NO)
[2023-12-24 09:17] LABS: INFLUENZA A NEGATIVE (NEGATIVE); INFLUENZA B NEGATIVE (NEGATIVE); RESPIRATORY SYNCTIAL VIRUS NEGATIVE (NEGATIVE); SARS-CoV-2 Xpert Express NEGATIVE (NEGATIVE)
[2023-12-24 09:21] LABS: ALBUMIN 3.5 g/dL (3.5-5.0); ANION GAP 9.6 MEQ/L (5-15); BILIRUBIN,TOTAL 1.3 mg/dL (0.2-1.3); Calcium 8.7 mg/dL (8.4-10.2); Creatinine 1 1.13 mg/dL (0.52-1.04); EST GLOMERULAR FILTRATION RATE 50.4 ML/MIN; Potassium 3.6 mmol/L (3.5-5.1); TSH, 3RD Generation 1.238 mIU/L (0.470-4.680); Total Protein 7.3 g/dL (6.3-8.2)
[2023-12-24] MEDS ORDERED: VANCOMYCIN 1 GRAM/200 ML BAG 1 GM/200 ML PIGGYBACK IV ONE (09:52)
[2023-12-24] MEDS ORDERED: Sodium Chloride 0.9% 1000 ML 1,000 ML ONE (09:52)
[2023-12-24] MEDS: VANCOMYCIN 1 GRAM/200 ML BAG 1 GM/200 ML PIGGYBACK IV ONE (09:56)
[2023-12-24] MEDS: Sodium Chloride 0.9% 1000 ML 1,000 ML IV SCH (09:56)
--- NOTE | 2023-12-24 09:56 | XRAY ---
CLINICAL HISTORY: altered mental status Hx prior CVA COMPARISON: [facility] CT brain dated 06/24/2023. TECHNIQUE: Axial noncontrast CT scan of the brain was performed from the skull base to the high parietal region, and sagittal and coronal reconstructed images were obtained. FINDINGS: No intra and extra axial cerebral hematoma seen. No definite calvarial fractures were seen. No territorial ischemic infarction seen. There are few ill-defined [id number] areas noted in the periventricular white matter bilaterally as well as small faint hypodensities in bilateral basal ganglionic and right thalamic regions suggestive of microvascular ischemic changes (redemonstrated). The ventricular system, cortical sulci, and basal cisterns are prominent and consistent with senile changes (redemonstrated). No midline shifts or deformity. Normal CT appearance of the posterior fossa structures namely the cerebellar hemispheres, brainstem, and cerebellar peduncles. Scanned paranasal sinuses are clear. A few tiny 2 mm hyperdense foci are seen scattered in the subarachnoid space of the right cerebral hemisphere (redemonstrated). The stationary appearance of small falcine lipoma is noted. IMPRESSION: 1. No intracerebral or extra axial cerebral hematomas. No definite evidence of territorial infarctions yet MRI with diffusion imaging is advised for further evaluation. 2. Microvascular ischemic changes and senile cortical atrophic changes. 3. No significant time interval changes. Electronically Signed by: Randy Sheppard MD. (12/24/2023 09:51:24 EDT)
--- NOTE | 2023-12-24 09:58 | XRAY ---
CLINICAL HISTORY: bilateral draining wounds lower leg COMPARISON: None. TECHNIQUE: Thin axial CT of the right leg without contrast was performed with coronal and sagittal reconstructions. One of the following dose reduction techniques was utilized for this exam: Automated exposure control, adjustment of the mA and/or kV according to patient size, and use of iterative reconstruction. FINDINGS: Right knee total prosthetic joint replacement, located in the proper place, with no loosening. Diffuse right leg skin thickening with subcutaneous edema and fat stranding along all its aspects. A few tiny calcific foci were noted in the subcutaneous fatty layer. Moderate right leg muscular fatty atrophy. Normal appearance of the other scanned bones with intact cortical outlines. No fracture lines or cortical disruption was noted. Intact neuro-vascular bundle. IMPRESSION: 1. Diffuse right leg skin thickening with subcutaneous edema along all its aspects, Likely infective/inflammatory disease process, Clinical correlation is needed. 2. Right knee total prosthetic joint replacement, located in the proper place, with no loosening. 3. Moderate right leg muscular fatty atrophy. Electronically Signed by: Randy Sheppard MD. (12/24/2023 09:53:24 EDT)
--- NOTE | 2023-12-24 09:58 | XRAY ---
CLINICAL HISTORY: BILATERAL DRAINAGE WOUNDS LOWER LEG COMPARISON: None. TECHNIQUE: Thin axial CT of the left leg without contrast was performed with coronal and sagittal reconstructions. One of the following dose reduction techniques was utilized for this exam: Automated exposure control, adjustment of the mA and/or kV according to patient size, and use of iterative reconstruction. FINDINGS: Left knee total prosthetic joint replacement, located in the proper place, with no loosening. Diffuse left leg skin thickening with subcutaneous edema and fat strandingalong all its aspects. A few tiny calcific foci were noted in the subcutaneous fatty layer. Mild left leg muscular fatty atrophy. Normal appearance of the other scanned bones with intact cortical outlines. No fracture lines or cortical disruption was noted. Intact neuro-vascular bundle. IMPRESSION: 1. Diffuse left leg skin thickening with subcutaneous edema along all its aspects, Likely infective / inflammatory disease process, Clinical correlation is needed. 2. Left knee total prosthetic joint replacement, located in the proper place, with no loosening. 3. Mild left leg muscular fatty atrophy. Electronically Signed by: Randy Sheppard MD. (12/24/2023 09:54:26 EDT)
--- NOTE | 2023-12-24 13:20 | PCM.HP ---
History of Present Illness - Chief Complaint Chief Complaint: altered mental status with bilateral leg wound infections Date: 12/24/23 History of Present Illness: is a 78 year old female with a pmhx of TIA, DVT (Xarelto),ALEXEY (CPAP), hypothyroid, dementia, CHF, arrhythmias (pacemaker), bariatric surgery HLD, HTN, DMII DDD, crohns, and neuropathy presented to ED 12/24/23 from the nursing facility that she resides in after staff noted patient with fever, AMS, and increased drainage/foul odor from chronic leg wound. During interview patient is A&O to self, place, and president. Family is at bedside and states she is now at her baseline mentation and improved since arriving at the hospital. Per family report patient has a several year history of leg wounds and cellulitis. She used to be under the care of Dr. Yang ([place]), but has not seen him since entering the nursing facility. In ED, patient febrile with temp at 100.5 and hypotensive with BP at 86/[address] head with no definite evidence of territorial infarctions. CT imaging of the right and left lower extremities with findings of diffuse left leg skin thickening with subcutaneous edema along all its aspects, Likely infective / inflammatory disease process, and diffuse right leg skin thickening with subcutaneous edema along all its aspects. Lab findings remarkable for BNP at 754 and creat slightly elevated at 1.33. Ceftriaxone and vancomycin given in ED. - Review of Systems Constitutional: Fever, Fatigue Eyes: No Symptoms Ears, Nose, & Throat: No Symptoms Respiratory: No Symptoms Cardiac: Edema (BLE +2 pitting) Abdominal/Gastrointestinal: No Symptoms Genitourinary Symptoms: No Symptoms Musculoskeletal: No Symptoms Skin: Cellulitis, Skin Lesions Neurological: No Symptoms Psychological: No Symptoms Endocrine: No Symptoms Hematologic/Lymphatic: No Symptoms Immunological/Allergic: No Symptoms Medications & Allergies Home Medications: Home Medication List Aspirin EC 81 mg [Ecotrin 81 mg] 81 mg PO DAILY 04/17/22 [History Confirmed 12/24/23] Atorvastatin Calcium 80 mg PO QHS 04/17/22 [History Confirmed 12/24/23] Duloxetine HCl 30 mg PO DAILY 04/17/22 [History Confirmed 12/24/23] Furosemide 60 mg PO DAILY 04/17/22 [History Confirmed 12/24/23] Metoprolol Tartrate 25 mg PO BID 04/17/22 [History Confirmed 12/24/23] Pramipexole Di-HCl [Pramipexole Dihydrochloride] 1 mg PO TID 04/17/22 [History Confirmed 12/24/23] Rivaroxaban [Xarelto] 15 mg PO EVENING MEAL 04/17/22 [History Confirmed 12/24/23] Insulin Glargine,Hum.rec.anlog [Lantus] 12 unit SQ QHS 05/26/23 [History Confirmed 12/24/23] Loperamide HCl 2 mg [Imodium 2 mg] 2 mg PO PRN PRN 05/26/23 [History Confirmed 12/24/23] Melatonin 3 mg PO QHS 05/26/23 [History Confirmed 12/24/23] Pregabalin 50 mg [Lyrica 50MG] 50 mg PO TID 05/26/23 [History Confirmed 12/24/23] Allopurinol 100 mg [Zyloprim 100 mg] 100 mg PO DAILY 06/24/23 [History Confirmed 12/24/23] Amitriptyline HCl 10 mg [Elavil 10 mg] 10 mg PO HS 06/24/23 [History Confirmed 12/24/23] Bisacodyl 10 mg [Dulcolax 10 MG SUPP] 10 mg RC DAILY 12/24/23 [History Confirmed 12/24/23] Calcium Carb/Vitamin D3/Vit K2 [Calcium Plus Menaq7 Adult Tab] 1 ea DAILY 12/24/23 [History Confirmed 12/24/23] Cholecalciferol (Vitamin D3) [Thera-D] 100 mcg PO DAILY 12/24/23 [History Confirmed 12/24/23] Divalproex Sodium ER 250 mg [Depakote EXTENDED RELEASE 250 MG] 750 mg PO DAILY 12/24/23 [History Confirmed 12/24/23] Duloxetine HCl 30 mg [Cymbalta 30 MG Capsule] 90 mg PO DAILY 12/24/23 [History Confirmed 12/24/23] Exenatide Microspheres [Bydureon Bcise] 2 mg SQ UD 12/24/23 [History Confirmed 12/24/23] Ferrous Sulfate 325 mg [Feosol 325 mg] 325 mg PO DAILY 12/24/23 [History Confirmed 12/24/23] Hydrophilic Cream [Triad] 71 gm TP BID 12/24/23 [History Confirmed 12/24/23] Lanolin Alcohol/Mo/W.pet/[place] [Eucerin Cream] 1 ea DAILY 12/24/23 [History Confirmed 12/24/23] Levothyroxine Sodium [Levothyroxine] 25 mcg PO DAILY 12/24/23 [History Confirmed 12/24/23] Lipase/Protease/Amylase [Elvis Portillo 24,000 Unit Capsule] 1 ea DAILY 12/24/23 [History Confirmed 12/24/23] Lubiprostone 8 mcg PO BID 12/24/23 [History Confirmed 12/24/23] Mirabegron [Myrbetriq] 25 mg PO DAILY 12/24/23 [History Confirmed 12/24/23] Multivitamin [Multi-Vitamin Daily] 1 each PO DAILY 12/24/23 [History Confirmed 12/24/23] Ubidecarenone/Vit E Acet [Co Q-10 100 mg Softgel] 1 ea DAILY 12/24/23 [History Confirmed 12/24/23] Allergies/Adverse Reactions: Allergies Allergy/AdvReac Type Severity Reaction Status Date / Time oxycodone Allergy Severe Itching Verified 12/24/23 07:56 - Past Medical History Past Medical History: Yes Neurological History: Migraines, TIA, Other ENT History: No Pertinent History Cardiac History: High Cholesterol, Hypertension, Other Respiratory History: No Pertinent History Endocrine Medical History: Diabetes Type II Musculoskelatal History: No Pertinent History, Degenerative Disk Disease GI Medical History: Crohns Disease, Irritable Bowel History: No Pertinent History Pyscho-Social History: No Pertinent History Reproductive Disorders: No Pertinent History Comment: NEUROPATHY - Past Surgical History Past Surgical History: Yes Neuro Surgical History: No Pertinent History Cardiac History: Pacemaker Respiratory Surgery: No Pertinent History GI Surgical History: Appendectomy, Cholecystectomy Genitourinary Surgical Hx: No Pertinent History Musculskeletal Surgical Hx: Joint Replacement, Orthopedic Surgery Female Surgical History: No Pertinent History Other Surgical History: BARIATRIC SURG,CARPAL TUNNEL - Social History Smoking Status: Never smoker Exposure to second hand smoke: No Alcohol: None Drug Use: none - Social Determinants of Health Will the patient participate in the screening: Unable to obtain - Physical Exam Vital Signs: Vital Signs - 24 hr Temp Pulse Resp BP BP Pulse Ox 12/24/23 12:20 99 12/24/23 11:20 73 16 110/36 96 12/24/23 11:19 76 18 95 12/24/23 11:01 77 18 83/45 95 12/24/23 10:30 78 18 106/61 97 12/24/23 10:01 118/65 12/24/23 09:33 94/58 84 L 12/24/23 09:31 86/55 95 12/24/23 09:00 78 20 121/76 98 12/24/23 08:00 118/43 12/24/23 07:59 100.5 F 90 18 103/68 99 General Appearance: no apparent distress Neurologic Exam: alert, cooperative, normal mood/affect, other (Orientated to self, place, president, situation) Eye Exam: PERRL/EOMI Ears, Nose, Throat Exam: moist mucous membranes Neck Exam: normal inspection, full range of motion Respiratory Exam: normal breath sounds, lungs clear Cardiovascular Exam: regular rate/rhythm, normal heart sounds Gastrointestinal/Abdomen Exam: soft, normal bowel sounds Pelvic Exam: not done Rectal Exam: deferred Back Exam: normal inspection Extremity Exam: inflammation, swelling, tenderness, other (multiple open areas in various stages of healing to BLE with erythema, purulent drainage Pics in chart) Results - Labs Lab/Micro Results: Lab Results-Last 24 Hours 12/24/23 12/24/23 12/24/23 Range/Units 08:12 08:12 08:30 WBC 7.2 (4.0-10.5) x10^3/uL RBC 3.62 L (4.1-5.4) x10^6/uL Hgb 11.1 L (12.0-16.0) g/dL Hct 34.4 L (35-47) % MCV 95.0 (78-100) fL MCH 30.7 (26-32) pg MCHC 32.3 (32-36) g/dL RDW 15.6 H (11.5-14.0) % Plt Count 177 (150-450) x10^3/uL MPV 9.9 (7.5-11.0) fL Gran % 79.8 H (36.0-66.0) % Immature Gran % (Auto) 0.3 (0.00-0.4) % Nucleat RBC Rel Count 0.0 (0.00-0.1) % Eos # (Auto) 0 (0-0.5) x10^3/uL Immature Gran # (Auto) 0.02 (0.00-0.03) x10^3u/L Absolute Lymphs (auto) 1.07 (1.0-4.6) x10^3/uL Absolute Monos (auto) 0.36 (0.0-1.3) x10^3/uL Absolute Nucleated RBC 0.00 (0.00-0.01) x10^3u/L Lymphocytes % 14.8 L (24.0-44.0) % Monocytes % 5.0 (0.0-12.0) % Eosinophils % 0.0 (0.00-5.0) % Basophils % 0.1 (0.0-0.4) % Absolute Granulocytes 5.77 (1.4-6.9) x10^3/uL Basophils # 0.01 (0-0.4) x10^3/uL Sodium (135-145) mmol/L Potassium (3.5-5.1) mmol/L Chloride (98-107) mmol/L Carbon Dioxide (22-30) mmol/L Anion Gap (5-15) MEQ/L BUN (7-17) mg/dL Creatinine (0.52-1.04) mg/dL Estimated GFR ML/MIN Glucose (74-106) mg/dL Lactic Acid 2.0 (0.4-2.0) Calcium (8.4-10.2) mg/dL Total Bilirubin (0.2-1.3) mg/dL AST (14-36) U/L ALT (0-35) U/L Alkaline Phosphatase (38-126) U/L Troponin I (0.000-0.033) ng/mL NT-Pro-B Natriuret Pep 754 (<300) pg/mL Serum Total Protein (6.3-8.2) g/dL Albumin (3.5-5.0) g/dL Free T4 (0.78-2.19) ng/dL TSH 3rd Generation (0.470-4.680) mIU/L Urine Color (Yellow) Urine Appearance (Clear) Urine pH (4.6-8.0) Ur Specific [place] (1.005-1.030) Urine Protein (Negative) Urine Glucose (UA) (Negative) mg/dL Urine Ketones (Negative) Urine Blood (Negative) Urine Nitrite (Negative) Urine Bilirubin (Negative) Urine Urobilinogen (0.2) mg/dL Ur Leukocyte Esterase (Negative) U Hyaline Cast (Auto) (0-2) /LPF Urine Microscopic RBC (0-5) /HPF Urine Microscopic WBC (0-5) /HPF Ur Epithelial Cells (None Seen) /HPF Urine Bacteria (None Seen) /HPF Urine Culture Reflexed (NO) Influenza Type A Ag (NEGATIVE) Influenza Type B Ag (NEGATIVE) RSV (PCR) (NEGATIVE) SARS-CoV-2 (PCR) (NEGATIVE) 12/24/23 12/24/23 12/24/23 Range/Units 08:30 08:30 08:30 WBC (4.0-10.5) x10^3/uL RBC (4.1-5.4) x10^6/uL Hgb (12.0-16.0) g/dL Hct (35-47) % MCV (78-100) fL MCH (26-32) pg MCHC (32-36) g/dL RDW (11.5-14.0) % Plt Count (150-450) x10^3/uL MPV (7.5-11.0) fL Gran % (36.0-66.0) % Immature Gran % (Auto) (0.00-0.4) % Nucleat RBC Rel Count (0.00-0.1) % Eos # (Auto) (0-0.5) x10^3/uL Immature Gran # (Auto) (0.00-0.03) x10^3u/L Absolute Lymphs (auto) (1.0-4.6) x10^3/uL Absolute Monos (auto) (0.0-1.3) x10^3/uL Absolute Nucleated RBC (0.00-0.01) x10^3u/L Lymphocytes % (24.0-44.0) % Monocytes % (0.0-12.0) % Eosinophils % (0.00-5.0) % Basophils % (0.0-0.4) % Absolute Granulocytes (1.4-6.9) x10^3/uL Basophils # (0-0.4) x10^3/uL Sodium 140 (135-145) mmol/L Potassium 3.6 (3.5-5.1) mmol/L Chloride 104 (98-107) mmol/L Carbon Dioxide 30 (22-30) mmol/L Anion Gap 9.6 (5-15) MEQ/L BUN 22 H (7-17) mg/dL Creatinine 1.13 H (0.52-1.04) mg/dL Estimated GFR 50.4 ML/MIN Glucose 133 H (74-106) mg/dL Lactic Acid (0.4-2.0) Calcium 8.7 (8.4-10.2) mg/dL Total Bilirubin 1.30 (0.2-1.3) mg/dL AST 35 (14-36) U/L ALT 26 (0-35) U/L Alkaline Phosphatase 90 (38-126) U/L Troponin I 0.024 (0.000-0.033) ng/mL NT-Pro-B Natriuret Pep (<300) pg/mL Serum Total Protein 7.3 (6.3-8.2) g/dL Albumin 3.5 (3.5-5.0) g/dL Free T4 1.13 (0.78-2.19) ng/dL TSH 3rd Generation 1.238 (0.470-4.680) mIU/L Urine Color (Yellow) Urine Appearance (Clear) Urine pH (4.6-8.0) Ur Specific [place] (1.005-1.030) Urine Protein (Negative) Urine Glucose (UA) (Negative) mg/dL Urine Ketones (Negative) Urine Blood (Negative) Urine Nitrite (Negative) Urine Bilirubin (Negative) Urine Urobilinogen (0.2) mg/dL Ur Leukocyte Esterase (Negative) U Hyaline Cast (Auto) (0-2) /LPF Urine Microscopic RBC (0-5) /HPF Urine Microscopic WBC (0-5) /HPF Ur Epithelial Cells (None Seen) /HPF Urine Bacteria (None Seen) /HPF Urine Culture Reflexed (NO) Influenza Type A Ag (NEGATIVE) Influenza Type B Ag (NEGATIVE) RSV (PCR) (NEGATIVE) SARS-CoV-2 (PCR) (NEGATIVE) 12/24/23 12/24/23 12/24/23 Range/Units 08:32 11:55 Unknown WBC (4.0-10.5) x10^3/uL RBC (4.1-5.4) x10^6/uL Hgb (12.0-16.0) g/dL Hct (35-47) % MCV (78-100) fL MCH (26-32) pg MCHC (32-36) g/dL RDW (11.5-14.0) % Plt Count (150-450) x10^3/uL MPV (7.5-11.0) fL Gran % (36.0-66.0) % Immature Gran % (Auto) (0.00-0.4) % Nucleat RBC Rel Count (0.00-0.1) % Eos # (Auto) (0-0.5) x10^3/uL Immature Gran # (Auto) (0.00-0.03) x10^3u/L Absolute Lymphs (auto) (1.0-4.6) x10^3/uL Absolute Monos (auto) (0.0-1.3) x10^3/uL Absolute Nucleated RBC (0.00-0.01) x10^3u/L Lymphocytes % (24.0-44.0) % Monocytes % (0.0-12.0) % Eosinophils % (0.00-5.0) % Basophils % (0.0-0.4) % Absolute Granulocytes (1.4-6.9) x10^3/uL Basophils # (0-0.4) x10^3/uL Sodium (135-145) mmol/L Potassium (3.5-5.1) mmol/L Chloride (98-107) mmol/L Carbon Dioxide (22-30) mmol/L Anion Gap (5-15) MEQ/L BUN (7-17) mg/dL Creatinine (0.52-1.04) mg/dL Estimated GFR ML/MIN Glucose (74-106) mg/dL Lactic Acid (0.4-2.0) Calcium (8.4-10.2) mg/dL Total Bilirubin (0.2-1.3) mg/dL AST (14-36) U/L ALT (0-35) U/L Alkaline Phosphatase (38-126) U/L Troponin I 0.022 (0.000-0.033) ng/mL NT-Pro-B Natriuret Pep (<300) pg/mL Serum Total Protein (6.3-8.2) g/dL Albumin (3.5-5.0) g/dL Free T4 (0.78-2.19) ng/dL TSH 3rd Generation (0.470-4.680) mIU/L Urine Color Yellow (Yellow) Urine Appearance Clear (Clear) Urine pH 8.5 A (4.6-8.0) Ur Specific [place] 1.020 (1.005-1.030) Urine Protein 100 A (Negative) Urine Glucose (UA) Negative (Negative) mg/dL Urine Ketones Trace A (Negative) Urine Blood Negative (Negative) Urine Nitrite Negative (Negative) Urine Bilirubin Negative (Negative) Urine Urobilinogen 1.0 A (0.2) mg/dL Ur Leukocyte Esterase Negative (Negative) U Hyaline Cast (Auto) NONE SEEN (0-2) /LPF Urine Microscopic RBC 11-20 A (0-5) /HPF Urine Microscopic WBC 0-2 (0-5) /HPF Ur Epithelial Cells None Seen (None Seen) /HPF Urine Bacteria None Seen (None Seen) /HPF Urine Culture Reflexed NO (NO) Influenza Type A Ag NEGATIVE (NEGATIVE) Influenza Type B Ag NEGATIVE (NEGATIVE) RSV (PCR) NEGATIVE (NEGATIVE) SARS-CoV-2 (PCR) NEGATIVE (NEGATIVE) - Radiology Impressions Radiology Exams & Impressions: Radiology Procedures Category Date Time Status CHEST 1 VIEW (PORTABLE) Stat Exams 12/24/23 08:13 Taken HEAD WITHOUT CONTRAST [CT] Stat Exams 12/24/23 08:10 Completed LOWER EXTREMITY WO CONTRAST [CT] Stat Exams 12/24/23 08:11 Completed LOWER EXTREMITY WO CONTRAST [CT] Stat Exams 12/24/23 08:18 Completed Assessment/Plan (1) Bilateral lower leg cellulitis Current Visit: Yes Status: Chronic Assessment & Plan: - CT imaging of the right and left lower extremities with findings of diffuse left leg skin thickening with subcutaneous edema along all its aspects, Likely infective / inflammatory disease process, and diffuse right leg skin thickening with subcutaneous edema along all its aspects -Podiatry consulted for possible debridement/Unna boots, appreciate recs -Vanc/Rocephin in ED, will continue Vanc/zosyn - follow culture -LA WNL -ESR, CRP -Elevate BLE -[place]iff borders -Unable to obtain MRI due to pacemaker -arterial duplex when available Code(s): L03.116 - CELLULITIS OF LEFT LOWER LIMB; L03.115 - CELLULITIS OF RIGHT LOWER LIMB (2) Ulcers of both lower extremities Current Visit: Yes Status: Acute Assessment & Plan: -see cellulitis -Plan for podiatry consult for possible debridement/ vanc/zosyn Code(s): L97.919 - NON-PRS CHRONIC ULC UNSP PRT OF R LOW LEG W UNSP SEVERITY; L97.929 - NON-PRS CHRONIC ULC UNSP PRT OF L LOW LEG W UNSP SEVERITY (3) Confusion Current Visit: Yes Status: Acute Assessment & Plan: -CT head with no definite evidence of territorial infarctions - family states patient is at baseline-Has h/o TIA and dementia- most likely secondary to infection -consider neuro consult if no improvement -unable to obtain MRI due to pacemaker -BG levels WNL -TSH level WNL Code(s): R41.0 - DISORIENTATION, UNSPECIFIED (4) Microcytic anemia Current Visit: Yes Status: Acute Assessment & Plan: -at baseline, will continue to monitor, transfusion if hgb <7 -add iron panel Code(s): D50.9 - IRON DEFICIENCY ANEMIA, UNSPECIFIED (5) Type 2 diabetes mellitus Current Visit: Yes Status: Acute Assessment & Plan: -ADA mechanical soft diet -SSI /glargine -A1c (6) CHF (congestive heart failure) Current Visit: Yes Status: Acute Assessment & Plan: -No recent ECHO on file -BNP elevated at 754 -EKG - Sinus Rhythm, Right [place] Deviation, Right Bundle Branch Block, Non- specific ST Changes, Other /Trops wnl x 2 -CXR pending -Patient follows with Dr. More, will attempt to obtain records Code(s): I50.9 - HEART FAILURE, UNSPECIFIED (7) History of DVT (deep vein thrombosis) Current Visit: Yes Status: Acute Assessment & Plan: -Per family h/o RLE DVT continue home xarelto Code(s): Z86.718 - PERSONAL HISTORY OF OTHER VENOUS THROMBOSIS AND EMBOLISM (8) ALEXEY (obstructive sleep apnea) Current Visit: Yes Status: Acute Assessment & Plan: -CPAP Code(s): G47.33 - OBSTRUCTIVE SLEEP APNEA (ADULT) (PEDIATRIC) (9) Hypothyroid Current Visit: Yes Status: Acute Assessment & Plan: -continue levothyroxine Code(s): E03.9 - HYPOTHYROIDISM, UNSPECIFIED (10) Neuropathy Current Visit: Yes Status: Acute Assessment & Plan: -continue home meds Code(s): G62.9 - POLYNEUROPATHY, UNSPECIFIED (11) Afib Current Visit: Yes Status: Acute Assessment & Plan: -continue metoprolol/xarelto -Pacemaker Code(s): I48.91 - UNSPECIFIED ATRIAL FIBRILLATION (12) CAD (coronary artery disease) Current Visit: Yes Status: Acute Assessment & Plan: -with stent placement -continue home meds VTE: Xarelto PPI: Protonix Next of Kin: Lilly card - [phone] Code(s): I25.10 - ATHSCL HEART DISEASE OF [place] CORONARY ARTERY W/O ANG PCTRS Telemedicine Encounter - Telemedicine Encounter Telemedicine Encounter: The entirety of this encounter was performed via Telemedicine"
[2023-12-24] MEDS ORDERED: TYLENOL 325 MG PO PRN (14:42)
[2023-12-24] MEDS ORDERED: Zofran 4 MG/2 ML VIAL IV PRN (14:42)
[2023-12-24] MEDS ORDERED: Docusate Sodium 100 MG PO PRN (14:42)
[2023-12-24] MEDS ORDERED: NYSTOP POWDER 15 GM TP PRN (15:18)
[2023-12-24] MEDS: VANCOMYCIN 1.5 GRAM/300 ML BAG 1.5 GM/300 ML PIGGYBACK IV SCH (16:03)
[2023-12-24 16:07] LABS: Iron 29 ug/dL (37-170); Iron Saturation 9 % (20-39); TIBC 339 ug/dL (265-462)
[2023-12-24] MEDS ORDERED: MEDICATION INTERVENTION MC SCH (16:15)
--- NOTE | 2023-12-24 16:15 | PCM.CONS ---
Podiatry HPI - Consult Date of Consultation Date: 12/24/23 Reason for Consult: Bilateral lower extremtiy ulceration with possible cellulitis Consulting Provider: KRIS LOOMIS DPM Medications & Allergies Home Medications: Home Medication List Aspirin EC 81 mg [Ecotrin 81 mg] 81 mg PO DAILY 04/17/22 [History Confirmed 12/24/23] Atorvastatin Calcium 80 mg PO QHS 04/17/22 [History Confirmed 12/24/23] Duloxetine HCl 30 mg PO DAILY 04/17/22 [History Confirmed 12/24/23] Furosemide 60 mg PO DAILY 04/17/22 [History Confirmed 12/24/23] Metoprolol Tartrate 25 mg PO BID 04/17/22 [History Confirmed 12/24/23] Pramipexole Di-HCl [Pramipexole Dihydrochloride] 1 mg PO TID 04/17/22 [History Confirmed 12/24/23] Rivaroxaban [Xarelto] 15 mg PO DAILY 04/17/22 [History Confirmed 12/24/23] Insulin Glargine,Hum.rec.anlog [Lantus] 12 unit SQ QHS 05/26/23 [History Confirmed 12/24/23] Loperamide HCl 2 mg [Imodium 2 mg] 2 mg PO Q6H PRN PRN 05/26/23 [History Confirmed 12/24/23] Melatonin 3 mg PO QHS 05/26/23 [History Confirmed 12/24/23] Pregabalin 50 mg [Lyrica 50MG] 50 mg PO TID 05/26/23 [History Confirmed 12/24/23] Allopurinol 100 mg [Zyloprim 100 mg] 100 mg PO DAILY 06/24/23 [History Confirmed 12/24/23] Amitriptyline HCl 10 mg [Elavil 10 mg] 10 mg PO HS 06/24/23 [History Confirmed 12/24/23] Acetaminophen 325 mg [Tylenol 325 mg] 650 mg PO Q6H PRN PRN 12/24/23 [History Confirmed 12/24/23] Bisacodyl 10 mg [Dulcolax 10 MG SUPP] 10 mg RC DAILY PRN 12/24/23 [History Confirmed 12/24/23] Calcium Carb/Vitamin D3/Vit K2 [Calcium Plus Menaq7 Adult Tab] 1 ea PO DAILY 12/24/23 [History Confirmed 12/24/23] Cholecalciferol (Vitamin D3) [Thera-D] 100 mcg PO DAILY 12/24/23 [History Confirmed 12/24/23] Divalproex Sodium ER 250 mg [Depakote EXTENDED RELEASE 250 MG] 750 mg PO DAILY 12/24/23 [History Confirmed 12/24/23] Duloxetine HCl 30 mg [Cymbalta 30 MG Capsule] 60 mg PO DAILY 12/24/23 [History Confirmed 12/24/23] Exenatide Microspheres [Bydureon Bcise] 2 mg SQ UD 12/24/23 [History Confirmed 12/24/23] Ferrous Sulfate 325 mg [Feosol 325 mg] 750 mg PO DAILY 12/24/23 [History Confirmed 12/24/23] Furosemide 40 mg PO EVENING MEAL 12/24/23 [History Confirmed 12/24/23] Hydrophilic Cream [Triad] 71 gm TP BID 12/24/23 [History Confirmed 12/24/23] Lanolin Alcohol/Mo/W.pet/[place] [Eucerin Cream] 1 ea DAILY 12/24/23 [History Confirmed 12/24/23] Levothyroxine Sodium [Levothyroxine] 25 mcg PO DAILY 12/24/23 [History Confirmed 12/24/23] Lipase/Protease/Amylase [[place]vis [place]illo 24,000 Unit Capsule] 1 cap PO TIDWMEALS 12/24/23 [History Confirmed 12/24/23] Lubiprostone 8 mcg PO BID 12/24/23 [History Confirmed 12/24/23] Mineral Oil/I-Prop Myr/Water [Eucerin Lotion (HYDROCERIN)] 240 ml TP DAILY 12/24/23 [History Confirmed 12/24/23] Mirabegron [Myrbetriq] 25 mg PO DAILY 12/24/23 [History Confirmed 12/24/23] Multivitamin [Multi-Vitamin Daily] 1 each PO DAILY 12/24/23 [History Confirmed 12/24/23] Nystatin Powder 15 gm [Nystop Powder 15 gm] 15 gm TP Q12H PRN PRN 12/24/23 [History Confirmed 12/24/23] Sodium Phosphate,[place]-Dibasic [Fleet Enema] 133 ml RC DAILY PRN PRN 12/24/23 [History Confirmed 12/24/23] Ubidecarenone/Vit E Acet [Co Q-10 100 mg Softgel] 1 ea DAILY 12/24/23 [History Confirmed 12/24/23] Allergies/Adverse Reactions: Allergies Allergy/AdvReac Type Severity Reaction Status Date / Time oxycodone Allergy Severe Itching Verified 12/24/23 07:56 - Past Medical History Past Medical History: Yes Neurological History: Migraines, TIA, Other ENT History: No Pertinent History Cardiac History: High Cholesterol, Hypertension, Other Respiratory History: No Pertinent History Endocrine Medical History: Diabetes Type II Musculoskelatal History: No Pertinent History, Degenerative Disk Disease GI Medical History: Crohns Disease, Irritable Bowel History: No Pertinent History Pyscho-Social History: No Pertinent History Reproductive Disorders: No Pertinent History Comment: NEUROPATHY - Past Surgical History Past Surgical History: Yes Neuro Surgical History: No Pertinent History Cardiac History: Pacemaker Respiratory Surgery: No Pertinent History GI Surgical History: Appendectomy, Cholecystectomy Genitourinary Surgical Hx: No Pertinent History Musculskeletal Surgical Hx: Joint Replacement, Orthopedic Surgery Female Surgical History: No Pertinent History Other Surgical History: BARIATRIC SURG,CARPAL TUNNEL - Social History Smoking Status: Never smoker Exposure to second hand smoke: No Alcohol: None Drug Use: none - Social Determinants of Health Will the patient participate in the screening: Unable to obtain Physical Exam - Narrative Narrative Physical Exam: Podiatry Physical Exam Results - Labs Lab/Micro Results: Lab Results-Last 24 Hours 12/24/23 12/24/23 12/24/23 Range/Units 08:12 08:12 08:30 WBC 7.2 (4.0-10.5) x10^3/uL RBC 3.62 L (4.1-5.4) x10^6/uL Hgb 11.1 L (12.0-16.0) g/dL Hct 34.4 L (35-47) % MCV 95.0 (78-100) fL MCH 30.7 (26-32) pg MCHC 32.3 (32-36) g/dL RDW 15.6 H (11.5-14.0) % Plt Count 177 (150-450) x10^3/uL MPV 9.9 (7.5-11.0) fL Gran % 79.8 H (36.0-66.0) % Immature Gran % (Auto) 0.3 (0.00-0.4) % Nucleat RBC Rel Count 0.0 (0.00-0.1) % Eos # (Auto) 0 (0-0.5) x10^3/uL Immature Gran # (Auto) 0.02 (0.00-0.03) x10^3u/L Absolute Lymphs (auto) 1.07 (1.0-4.6) x10^3/uL Absolute Monos (auto) 0.36 (0.0-1.3) x10^3/uL Absolute Nucleated RBC 0.00 (0.00-0.01) x10^3u/L Lymphocytes % 14.8 L (24.0-44.0) % Monocytes % 5.0 (0.0-12.0) % Eosinophils % 0.0 (0.00-5.0) % Basophils % 0.1 (0.0-0.4) % Absolute Granulocytes 5.77 (1.4-6.9) x10^3/uL Basophils # 0.01 (0-0.4) x10^3/uL Sodium (135-145) mmol/L Potassium (3.5-5.1) mmol/L Chloride (98-107) mmol/L Carbon Dioxide (22-30) mmol/L Anion Gap (5-15) MEQ/L BUN (7-17) mg/dL Creatinine (0.52-1.04) mg/dL Estimated GFR ML/MIN Glucose (74-106) mg/dL Lactic Acid 2.0 (0.4-2.0) Calcium (8.4-10.2) mg/dL Total Bilirubin (0.2-1.3) mg/dL AST (14-36) U/L ALT (0-35) U/L Alkaline Phosphatase (38-126) U/L Troponin I (0.000-0.033) ng/mL NT-Pro-B Natriuret Pep 754 (<300) pg/mL Serum Total Protein (6.3-8.2) g/dL Albumin (3.5-5.0) g/dL Free T4 (0.78-2.19) ng/dL TSH 3rd Generation (0.470-4.680) mIU/L Urine Color (Yellow) Urine Appearance (Clear) Urine pH (4.6-8.0) Ur Specific [place] (1.005-1.030) Urine Protein (Negative) Urine Glucose (UA) (Negative) mg/dL Urine Ketones (Negative) Urine Blood (Negative) Urine Nitrite (Negative) Urine Bilirubin (Negative) Urine Urobilinogen (0.2) mg/dL Ur Leukocyte Esterase (Negative) U Hyaline Cast (Auto) (0-2) /LPF Urine Microscopic RBC (0-5) /HPF Urine Microscopic WBC (0-5) /HPF Ur Epithelial Cells (None Seen) /HPF Urine Bacteria (None Seen) /HPF Urine Culture Reflexed (NO) Influenza Type A Ag (NEGATIVE) Influenza Type B Ag (NEGATIVE) RSV (PCR) (NEGATIVE) SARS-CoV-2 (PCR) (NEGATIVE) 12/24/23 12/24/23 12/24/23 Range/Units 08:30 08:30 08:30 WBC (4.0-10.5) x10^3/uL RBC (4.1-5.4) x10^6/uL Hgb (12.0-16.0) g/dL Hct (35-47) % MCV (78-100) fL MCH (26-32) pg MCHC (32-36) g/dL RDW (11.5-14.0) % Plt Count (150-450) x10^3/uL MPV (7.5-11.0) fL Gran % (36.0-66.0) % Immature Gran % (Auto) (0.00-0.4) % Nucleat RBC Rel Count (0.00-0.1) % Eos # (Auto) (0-0.5) x10^3/uL Immature Gran # (Auto) (0.00-0.03) x10^3u/L Absolute Lymphs (auto) (1.0-4.6) x10^3/uL Absolute Monos (auto) (0.0-1.3) x10^3/uL Absolute Nucleated RBC (0.00-0.01) x10^3u/L Lymphocytes % (24.0-44.0) % Monocytes % (0.0-12.0) % Eosinophils % (0.00-5.0) % Basophils % (0.0-0.4) % Absolute Granulocytes (1.4-6.9) x10^3/uL Basophils # (0-0.4) x10^3/uL Sodium 140 (135-145) mmol/L Potassium 3.6 (3.5-5.1) mmol/L Chloride 104 (98-107) mmol/L Carbon Dioxide 30 (22-30) mmol/L Anion Gap 9.6 (5-15) MEQ/L BUN 22 H (7-17) mg/dL Creatinine 1.13 H (0.52-1.04) mg/dL Estimated GFR 50.4 ML/MIN Glucose 133 H (74-106) mg/dL Lactic Acid (0.4-2.0) Calcium 8.7 (8.4-10.2) mg/dL Total Bilirubin 1.30 (0.2-1.3) mg/dL AST 35 (14-36) U/L ALT 26 (0-35) U/L Alkaline Phosphatase 90 (38-126) U/L Troponin I 0.024 (0.000-0.033) ng/mL NT-Pro-B Natriuret Pep (<300) pg/mL Serum Total Protein 7.3 (6.3-8.2) g/dL Albumin 3.5 (3.5-5.0) g/dL Free T4 1.13 (0.78-2.19) ng/dL TSH 3rd Generation 1.238 (0.470-4.680) mIU/L Urine Color (Yellow) Urine Appearance (Clear) Urine pH (4.6-8.0) Ur Specific [place] (1.005-1.030) Urine Protein (Negative) Urine Glucose (UA) (Negative) mg/dL Urine Ketones (Negative) Urine Blood (Negative) Urine Nitrite (Negative) Urine Bilirubin (Negative) Urine Urobilinogen (0.2) mg/dL Ur Leukocyte Esterase (Negative) U Hyaline Cast (Auto) (0-2) /LPF Urine Microscopic RBC (0-5) /HPF Urine Microscopic WBC (0-5) /HPF Ur Epithelial Cells (None Seen) /HPF Urine Bacteria (None Seen) /HPF Urine Culture Reflexed (NO) Influenza Type A Ag (NEGATIVE) Influenza Type B Ag (NEGATIVE) RSV (PCR) (NEGATIVE) SARS-CoV-2 (PCR) (NEGATIVE) 12/24/23 12/24/23 12/24/23 Range/Units 08:32 11:55 Unknown WBC (4.0-10.5) x10^3/uL RBC (4.1-5.4) x10^6/uL Hgb (12.0-16.0) g/dL Hct (35-47) % MCV (78-100) fL MCH (26-32) pg MCHC (32-36) g/dL RDW (11.5-14.0) % Plt Count (150-450) x10^3/uL MPV (7.5-11.0) fL Gran % (36.0-66.0) % Immature Gran % (Auto) (0.00-0.4) % Nucleat RBC Rel Count (0.00-0.1) % Eos # (Auto) (0-0.5) x10^3/uL Immature Gran # (Auto) (0.00-0.03) x10^3u/L Absolute Lymphs (auto) (1.0-4.6) x10^3/uL Absolute Monos (auto) (0.0-1.3) x10^3/uL Absolute Nucleated RBC (0.00-0.01) x10^3u/L Lymphocytes % (24.0-44.0) % Monocytes % (0.0-12.0) % Eosinophils % (0.00-5.0) % Basophils % (0.0-0.4) % Absolute Granulocytes (1.4-6.9) x10^3/uL Basophils # (0-0.4) x10^3/uL Sodium (135-145) mmol/L Potassium (3.5-5.1) mmol/L Chloride (98-107) mmol/L Carbon Dioxide (22-30) mmol/L Anion Gap (5-15) MEQ/L BUN (7-17) mg/dL Creatinine (0.52-1.04) mg/dL Estimated GFR ML/MIN Glucose (74-106) mg/dL Lactic Acid (0.4-2.0) Calcium (8.4-10.2) mg/dL Total Bilirubin (0.2-1.3) mg/dL AST (14-36) U/L ALT (0-35) U/L Alkaline Phosphatase (38-126) U/L Troponin I 0.022 (0.000-0.033) ng/mL NT-Pro-B Natriuret Pep (<300) pg/mL Serum Total Protein (6.3-8.2) g/dL Albumin (3.5-5.0) g/dL Free T4 (0.78-2.19) ng/dL TSH 3rd Generation (0.470-4.680) mIU/L Urine Color Yellow (Yellow) Urine Appearance Clear (Clear) Urine pH 8.5 A (4.6-8.0) Ur Specific [place] 1.020 (1.005-1.030) Urine Protein 100 A (Negative) Urine Glucose (UA) Negative (Negative) mg/dL Urine Ketones Trace A (Negative) Urine Blood Negative (Negative) Urine Nitrite Negative (Negative) Urine Bilirubin Negative (Negative) Urine Urobilinogen 1.0 A (0.2) mg/dL Ur Leukocyte Esterase Negative (Negative) U Hyaline Cast (Auto) NONE SEEN (0-2) /LPF Urine Microscopic RBC 11-20 A (0-5) /HPF Urine Microscopic WBC 0-2 (0-5) /HPF Ur Epithelial Cells None Seen (None Seen) /HPF Urine Bacteria None Seen (None Seen) /HPF Urine Culture Reflexed NO (NO) Influenza Type A Ag NEGATIVE (NEGATIVE) Influenza Type B Ag NEGATIVE (NEGATIVE) RSV (PCR) NEGATIVE (NEGATIVE) SARS-CoV-2 (PCR) NEGATIVE (NEGATIVE) - Radiology Impressions Radiology Exams & Impressions: Radiology Procedures Category Date Time Status ARTERIAL BILAT LOWER EXTREMITY [US] Routine Exams 12/25/23 08:00 Ordered CHEST 1 VIEW (PORTABLE) Stat Exams 12/24/23 08:13 Taken HEAD WITHOUT CONTRAST [CT] Stat Exams 12/24/23 08:10 Completed LOWER EXTREMITY WO CONTRAST [CT] Stat Exams 12/24/23 08:11 Completed LOWER EXTREMITY WO CONTRAST [CT] Stat Exams 12/24/23 08:18 Completed Assessment/Plan (1) Afib Current Visit: Yes Status: Acute Assessment & Plan: On xarelto 10 mg PO QD Code(s): I48.91 - UNSPECIFIED ATRIAL FIBRILLATION (2) CAD (coronary artery disease) Current Visit: Yes Status: Acute Code(s): I25.10 - ATHSCL HEART DISEASE OF [place] CORONARY ARTERY W/O ANG PCTRS (3) CHF (congestive heart failure) Current Visit: Yes Status: Acute Code(s): I50.9 - HEART FAILURE, UNSPECIFIED (4) Cellulitis Current Visit: Yes Status: Acute Assessment & Plan: Bilateral chronic venous insufficency ulcers starting approximately 3 months ago per patient recollection Seen by wound care who provided debridement on with a calcium alginate dressings. No compression provided/ Hx of subacute DVT to the RLE Pending ultrasound at this tme No increase leg pain or calf pain bilaterally Findings likely consistent with brawny edema with ulceration Code(s): L03.90 - CELLULITIS, UNSPECIFIED (5) Confusion Current Visit: Yes Status: Acute Code(s): R41.0 - DISORIENTATION, UNSPECIFIED (6) History of DVT (deep vein thrombosis) Current Visit: Yes Status: Acute Code(s): Z86.718 - PERSONAL HISTORY OF OTHER VENOUS THROMBOSIS AND EMBOLISM (7) Type 2 diabetes mellitus Current Visit: Yes Status: Acute (8) Ulcers of both lower extremities Current Visit: Yes Status: Acute Assessment & Plan: venous insufficiency ulceration with 2+ pitting edema on examination Negative calf pain Pending venous dopplers Wounds debrided to the bilateral lower extremity- post debirdement measurements as follows Right: 2.7 x 1.6 x0.2 3.4 x 3.6 x 0.2 Left 1.5 x 2.4 x 0.2 2.3 x 2.2 0.1 3.5 x 2.6 x 0.2 legs were aggressively cleansed with sterile saline following debridement. Iodine paint to legs adaptic cast padding, kerlix and coban was applied Multilayer compression dressing applied with light compression until results from doppler obtained. Concern for possible urgency with urination/defecation infecting wounds as patient has chronic hx of Chron's. She states she has not been bathed since last Monday at detention. With this hx and wounds not covered consistently poss ible contamination however will await culture and sensitivity obtained by nursing staff. Joshomycin/zosyn ordered- medicine managing for now Will follow with you. Code(s): L97.919 - NON-PRS CHRONIC ULC UNSP PRT OF R LOW LEG W UNSP SEVERITY; L97.929 - NON-PRS CHRONIC ULC UNSP PRT OF L LOW LEG W UNSP SEVERITY (9) Bilateral lower leg cellulitis Current Visit: Yes Status: Chronic Code(s): L03.116 - CELLULITIS OF LEFT LOWER LIMB; L03.115 - CELLULITIS OF RIGHT LOWER LIMB (10) Ulcer of extremity due to chronic venous insufficiency Current Visit: No Status: Chronic Code(s): L98.499 - NON-PRESSURE CHRONIC ULCER OF SKIN OF SITES W UNSP SEVERITY; I87.2 - VENOUS INSUFFICIENCY (CHRONIC) (PERIPHERAL) (11) Wound of lower extremity Current Visit: No Status: Chronic Qualifiers: Encounter type: subsequent encounter Laterality: unspecified laterality Qualified Code(s): S81.809D - Unspecified open wound, unspecified lower leg, subsequent encounter Code(s): S81.809A - UNSPECIFIED OPEN WOUND, UNSPECIFIED LOWER LEG, INIT ENCNTR (12) AMS (altered mental status) Current Visit: No Status: Resolved Qualifiers: Altered mental status type: delirium Qualified Code(s): R41.0 - Disorientation, unspecified Code(s): R41.82 - ALTERED MENTAL STATUS, UNSPECIFIED
[2023-12-24] MEDS: Lasix 40 MG/4 ML IV SCH (16:34)
[2023-12-24] MEDS: Lyrica 50MG PO SCH (16:34)
[2023-12-24] MEDS: ZENPEP DR 5,000 UNIT CAPSULE PO SCH (16:35)
[2023-12-24] MEDS ORDERED: LIPASE PO SCH (17:00)
[2023-12-24] MEDS ORDERED: [UNRECOGNIZED DRUG - OTHER] PO SCH (17:00)
[2023-12-24] MEDS ORDERED: PROTEASE PO SCH (17:00)
[2023-12-24] MEDS ORDERED: AMYLASE PO SCH (17:00)
[2023-12-24 17:06] LABS: Ferritin 60.7 ng/mL (11.1-264); Folate (Folic Acid) > 16.6 ng/mL (2.76 - >20); Vitamin B12 330 pg/mL (239-931)
[2023-12-24] MEDS: PHARMACY RENAL DOSING MC ONE (17:15)
[2023-12-24] MEDS: PIPERACILLIN/TAZOBACTAM 3.375 GM in Sodium Chloride 100ML MINI-BAG PLUS 100 ML IV SCH (18:57)
--- NOTE | 2023-12-24 20:20 | XRAY ---
Indication: Fever. Altered mental status. Comparison: November 25, 2022 Portable chest remains inflated and clear. Heart not enlarged again with a few hilar calcified nodes and left pacemaker. Bony thorax intact again with osteopenia and moderate degenerative changes. Impression: Continued nonacute chest with chronic features.
[2023-12-24] MEDS: Lantus Insulin SQ SCH (21:50)
[2023-12-24] MEDS: Lopressor 25MG Tab PO SCH (21:51)
[2023-12-24] MEDS: ZOCOR 20MG PO SCH (21:51)
[2023-12-24] MEDS: FEOSOL 325 MG PO SCH (21:51)
[2023-12-24] MEDS: ELAVIL 10 MG PO SCH (21:51)
[2023-12-24] MEDS: Mirapex 0.5 MG Tablet PO SCH (21:51)
[2023-12-24] MEDS: MELATONIN PO SCH (21:52)
[2023-12-24] MEDS ORDERED: NON-FORMULARY ITEM (Atorvastatin Calcium [Atorvastatin Calcium] 80 MG Tablet) PO SCH (22:00)
[2023-12-24] MEDS ORDERED: LUBIPROSTONE 8 MCG PO SCH (22:00)
[2023-12-24] MEDS ORDERED: NON-FORMULARY ITEM (Pramipexole Di-Hcl [Pramipexole Dihydrochloride] 1 MG Tablet) PO SCH (22:00)
[2023-12-25 06:04] LABS: Absolute Neutrophil Ct (ANC) 3.36 x10^3/uL (1.4-6.9); BASOPHIL % 0.4 % (0.0-0.4); Basophil (Absolute #) 0.02 x10^3/uL (0-0.4); Eosinophil % 1.1 % (0.00-5.0); Eosinophil (Absolute #) 0.06 x10^3/uL (0-0.5); Hematocrit 28.6 % (35-47); Hemoglobin 9.5 g/dL (12.0-16.0); IMMATURE GRAN # 0.01 x10^3u/L (0.00-0.03); IMMATURE GRAN % 0.2 % (0.00-0.4); Lymphocytes % 28.5 % (24.0-44.0); Mean Cell Volume 94.7 fL (78-100); Mean Corpuscular Hemoglobin 31.5 pg (26-32); Mean Corpuscular Hgb Concent. 33.2 g/dL (32-36); Mean Platelet Volume 10.5 fL (7.5-11.0); Monocyte (Absolute #) 0.57 x10^3/uL (0.0-1.3); Monocytes % 10.1 % (0.0-12.0); Neutrophil % 59.7 % (36.0-66.0); Platelet Count 149 x10^3/uL (150-450); Red Blood Count 3.02 x10^6/uL (4.1-5.4); White Blood Count 5.6 x10^3/uL (4.0-10.5)
[2023-12-25 06:07] LABS: ALBUMIN 2.8 g/dL (3.5-5.0); ANION GAP 7.2 MEQ/L (5-15); BILIRUBIN,TOTAL 0.9 mg/dL (0.2-1.3); Calcium 8.1 mg/dL (8.4-10.2); Creatinine 1 1.09 mg/dL (0.52-1.04); EST GLOMERULAR FILTRATION RATE 52.7 ML/MIN; Potassium 3.4 mmol/L (3.5-5.1); Total Protein 6.2 g/dL (6.3-8.2)
--- NOTE | 2023-12-25 08:29 | PCM.NOTE ---
Date and Time: 12/25/23 0816 Subjective Assessment: is a 78 year old female admitted with BLE venous insufficency ulceration with superimposed cellulitis after the patient was brought in to the ED from [facility] after staff noticed patient was experiencing confusion and increased purulent drainage from chronic BLE ulcers. Podiatry consulted with debridement performed 12/25/23. Currently patient is receiving vancomycin and zosyn - wound cultures pending. Iodine paint to legs adaptic cast padding, kerlix and coban was applied. Multilayer compression dressing applied with light compression until results from doppler obtained due to h/o DVT. 12/25/23: Met with patient bedside. S/P debridement performed bedside 12/24/23 by podiatry. She is A&O x 4, afebrile overnight, and endorses that she is feeling much improved today. Labs and vitals are stable. Denies fever,cough, sob, cp, abdominal pain, LINARES, dizziness, N/V/D. Plan for continued abx - follow cultures. Arterial duplex Tues. - Review of Systems Constitutional: No Symptoms Eyes: No Symptoms Ears, Nose, & Throat: No Symptoms Respiratory: No Symptoms Cardiac: No Symptoms Abdominal/Gastrointestinal: Diarrhea (h/o crohns), Constipation Genitourinary Symptoms: Urgency (chroic) Musculoskeletal: No Symptoms Skin: Cellulitis (BLE -wrapped ) Neurological: No Symptoms Psychological: No Symptoms Endocrine: No Symptoms Hematologic/Lymphatic: Anemia Immunological/Allergic: No Symptoms Objective Exam General Appearance: no apparent distress Neurologic Exam: alert, oriented x 3, cooperative Skin Exam: normal color Wound Assessment: Skin/Wound Assessment Wound/Incision Assessment Start: 12/24/23 13:27 Text: Status: Active Freq: Q6H Protocol: Document 12/25/23 07:29 RB (Rec: 12/25/23 07:52 RB [id number]) Wound/Incision Assessment left anterior outer leg Wound Assessment Shift Assessment Wound Type Stasis Ulcer Wound Stage Stage III Length (cm) (cm) 5 Width (cm) (cm) 7 Right Lower Anterior Medial Wound Assessment Shift Assessment Wound Type Stasis Ulcer Wound Stage Stage III Length (cm) (cm) 3 Width (cm) (cm) 3 Comment warren boots in place per pau, no bleeding or drainage. extremity w/p/d Left Lower Wound Assessment Shift Assessment Length (cm) (cm) 4 Width (cm) (cm) 4 Comment warren boots in place per pau, no bleeding or drainage. extremity w/p/d Left Upper Anterior Wound Assessment Shift Assessment Wound Type Stasis Ulcer Wound Stage Stage III Length (cm) (cm) 6 Width (cm) (cm) 5 Comment warren boots in place per pau, no bleeding or drainage. extremity w/p/d Right Lower Anterior Wound Assessment Shift Assessment Wound Type Stasis Ulcer Wound Stage Stage III Length (cm) (cm) 4 Width (cm) (cm) 5 Comment warren boots in place per pau, no bleeding or drainage. extremity w/p/d Wound Photo Photo Taken Yes Comment: in chart Eye Exam: PERRL Ears, Nose, Throat Exam: normal ENT inspection Neck Exam: normal inspection, full range of motion Respiratory Exam: normal breath sounds, lungs clear Cardiovascular Exam: regular rate/rhythm, normal heart sounds Gastrointestinal/Abdomen Exam: soft, normal bowel sounds Extremity Exam: inflammation, swelling, tenderness Back Exam: normal inspection Pelvic Exam: deferred Rectal Exam: deferred Objective Data Vital Signs: Vital Signs - 24 hr Temp Pulse Resp BP BP Pulse Ox 12/25/23 06:51 97.9 F 71 16 120/57 96 12/25/23 04:00 97.9 F 73 22 117/55 94 L 12/25/23 00:00 97.6 F 77 23 107/51 93 L 12/24/23 20:00 98 F 75 21 109/53 93 L 12/24/23 16:00 98.8 F 75 17 119/57 94 L 12/24/23 15:33 83 16 94 L 12/24/23 13:21 99.1 F 71 16 90/55 92 L 12/24/23 13:00 98.5 F 71 16 90/55 92 L 12/24/23 12:20 99 12/24/23 11:20 73 16 110/36 96 12/24/23 11:19 76 18 95 12/24/23 11:01 77 18 83/45 95 12/24/23 10:30 78 18 106/61 97 12/24/23 10:01 118/65 12/24/23 09:33 94/58 84 L 12/24/23 09:31 86/55 95 12/24/23 09:00 78 20 121/76 98 Pain Assessment - Last Documented Pain Intensity 0 Intake and Output: Intake & Output 12/22/23 12/23/23 12/24/23 12/25/23 11:59 11:59 11:59 11:59 Intake Total 520 Output Total 1500 Balance -980 Weight 118.8 kg 119 kg Lab Results: Lab Results-Last 24 Hours 12/24/23 12/24/23 12/24/23 Range/Units 05:15 05:15 05:15 WBC (4.0-10.5) x10^3/uL RBC (4.1-5.4) x10^6/uL Hgb (12.0-16.0) g/dL Hct (35-47) % MCV (78-100) fL MCH (26-32) pg MCHC (32-36) g/dL RDW (11.5-14.0) % Plt Count (150-450) x10^3/uL MPV (7.5-11.0) fL Gran % (36.0-66.0) % Immature Gran % (Auto) (0.00-0.4) % Nucleat RBC Rel Count (0.00-0.1) % Eos # (Auto) (0-0.5) x10^3/uL Immature Gran # (Auto) (0.00-0.03) x10^3u/L Absolute Lymphs (auto) (1.0-4.6) x10^3/uL Absolute Monos (auto) (0.0-1.3) x10^3/uL Absolute Nucleated RBC (0.00-0.01) x10^3u/L Lymphocytes % (24.0-44.0) % Monocytes % (0.0-12.0) % Eosinophils % (0.00-5.0) % Basophils % (0.0-0.4) % Absolute Granulocytes (1.4-6.9) x10^3/uL Basophils # (0-0.4) x10^3/uL ESR 40 H (0-20) mm/hr Sodium (135-145) mmol/L Potassium (3.5-5.1) mmol/L Chloride (98-107) mmol/L Carbon Dioxide (22-30) mmol/L Anion Gap (5-15) MEQ/L BUN (7-17) mg/dL Creatinine (0.52-1.04) mg/dL Estimated GFR ML/MIN Glucose (74-106) mg/dL POC Glucometer (74 to 106) mg/dL Lactic Acid (0.4-2.0) Calcium (8.4-10.2) mg/dL Iron (37-170) ug/dL TIBC (265-462) ug/dL Iron Saturation (20-39) % Ferritin 60.7 (11.1-264) ng/mL Total Bilirubin (0.2-1.3) mg/dL AST (14-36) U/L ALT (0-35) U/L Alkaline Phosphatase (38-126) U/L Troponin I (0.000-0.033) ng/mL NT-Pro-B Natriuret Pep (<300) pg/mL Serum Total Protein (6.3-8.2) g/dL Albumin (3.5-5.0) g/dL Prealbumin 17.96 (17.6-36.0) mg/dL Vitamin B12 330 (239-931) pg/mL Folic Acid > 16.6 (2.76 - >20) ng/mL Free T4 (0.78-2.19) ng/dL TSH 3rd Generation (0.470-4.680) mIU/L Urine Color (Yellow) Urine Appearance (Clear) Urine pH (4.6-8.0) Ur Specific [place] (1.005-1.030) Urine Protein (Negative) Urine Glucose (UA) (Negative) mg/dL Urine Ketones (Negative) Urine Blood (Negative) Urine Nitrite (Negative) Urine Bilirubin (Negative) Urine Urobilinogen (0.2) mg/dL Ur Leukocyte Esterase (Negative) U Hyaline Cast (Auto) (0-2) /LPF Urine Microscopic RBC (0-5) /HPF Urine Microscopic WBC (0-5) /HPF Ur Epithelial Cells (None Seen) /HPF Urine Bacteria (None Seen) /HPF Urine Culture Reflexed (NO) Influenza Type A Ag (NEGATIVE) Influenza Type B Ag (NEGATIVE) RSV (PCR) (NEGATIVE) SARS-CoV-2 (PCR) (NEGATIVE) 12/24/23 12/24/23 12/24/23 Range/Units 05:15 08:12 08:12 WBC (4.0-10.5) x10^3/uL RBC (4.1-5.4) x10^6/uL Hgb (12.0-16.0) g/dL Hct (35-47) % MCV (78-100) fL MCH (26-32) pg MCHC (32-36) g/dL RDW (11.5-14.0) % Plt Count (150-450) x10^3/uL MPV (7.5-11.0) fL Gran % (36.0-66.0) % Immature Gran % (Auto) (0.00-0.4) % Nucleat RBC Rel Count (0.00-0.1) % Eos # (Auto) (0-0.5) x10^3/uL Immature Gran # (Auto) (0.00-0.03) x10^3u/L Absolute Lymphs (auto) (1.0-4.6) x10^3/uL Absolute Monos (auto) (0.0-1.3) x10^3/uL Absolute Nucleated RBC (0.00-0.01) x10^3u/L Lymphocytes % (24.0-44.0) % Monocytes % (0.0-12.0) % Eosinophils % (0.00-5.0) % Basophils % (0.0-0.4) % Absolute Granulocytes (1.4-6.9) x10^3/uL Basophils # (0-0.4) x10^3/uL ESR (0-20) mm/hr Sodium (135-145) mmol/L Potassium (3.5-5.1) mmol/L Chloride (98-107) mmol/L Carbon Dioxide (22-30) mmol/L Anion Gap (5-15) MEQ/L BUN (7-17) mg/dL Creatinine (0.52-1.04) mg/dL Estimated GFR ML/MIN Glucose (74-106) mg/dL POC Glucometer (74 to 106) mg/dL Lactic Acid 2.0 (0.4-2.0) Calcium (8.4-10.2) mg/dL Iron 29 L (37-170) ug/dL TIBC 339 (265-462) ug/dL Iron Saturation 9 L (20-39) % Ferritin (11.1-264) ng/mL Total Bilirubin (0.2-1.3) mg/dL AST (14-36) U/L ALT (0-35) U/L Alkaline Phosphatase (38-126) U/L Troponin I (0.000-0.033) ng/mL NT-Pro-B Natriuret Pep 754 (<300) pg/mL Serum Total Protein (6.3-8.2) g/dL Albumin (3.5-5.0) g/dL Prealbumin (17.6-36.0) mg/dL Vitamin B12 (239-931) pg/mL Folic Acid (2.76 - >20) ng/mL Free T4 (0.78-2.19) ng/dL TSH 3rd Generation (0.470-4.680) mIU/L Urine Color (Yellow) Urine Appearance (Clear) Urine pH (4.6-8.0) Ur Specific [place] (1.005-1.030) Urine Protein (Negative) Urine Glucose (UA) (Negative) mg/dL Urine Ketones (Negative) Urine Blood (Negative) Urine Nitrite (Negative) Urine Bilirubin (Negative) Urine Urobilinogen (0.2) mg/dL Ur Leukocyte Esterase (Negative) U Hyaline Cast (Auto) (0-2) /LPF Urine Microscopic RBC (0-5) /HPF Urine Microscopic WBC (0-5) /HPF Ur Epithelial Cells (None Seen) /HPF Urine Bacteria (None Seen) /HPF Urine Culture Reflexed (NO) Influenza Type A Ag (NEGATIVE) Influenza Type B Ag (NEGATIVE) RSV (PCR) (NEGATIVE) SARS-CoV-2 (PCR) (NEGATIVE) 12/24/23 12/24/23 12/24/23 Range/Units 08:30 08:30 08:30 WBC 7.2 (4.0-10.5) x10^3/uL RBC 3.62 L (4.1-5.4) x10^6/uL Hgb 11.1 L (12.0-16.0) g/dL Hct 34.4 L (35-47) % MCV 95.0 (78-100) fL MCH 30.7 (26-32) pg MCHC 32.3 (32-36) g/dL RDW 15.6 H (11.5-14.0) % Plt Count 177 (150-450) x10^3/uL MPV 9.9 (7.5-11.0) fL Gran % 79.8 H (36.0-66.0) % Immature Gran % (Auto) 0.3 (0.00-0.4) % Nucleat RBC Rel Count 0.0 (0.00-0.1) % Eos # (Auto) 0 (0-0.5) x10^3/uL Immature Gran # (Auto) 0.02 (0.00-0.03) x10^3u/L Absolute Lymphs (auto) 1.07 (1.0-4.6) x10^3/uL Absolute Monos (auto) 0.36 (0.0-1.3) x10^3/uL Absolute Nucleated RBC 0.00 (0.00-0.01) x10^3u/L Lymphocytes % 14.8 L (24.0-44.0) % Monocytes % 5.0 (0.0-12.0) % Eosinophils % 0.0 (0.00-5.0) % Basophils % 0.1 (0.0-0.4) % Absolute Granulocytes 5.77 (1.4-6.9) x10^3/uL Basophils # 0.01 (0-0.4) x10^3/uL ESR (0-20) mm/hr Sodium 140 (135-145) mmol/L Potassium 3.6 (3.5-5.1) mmol/L Chloride 104 (98-107) mmol/L Carbon Dioxide 30 (22-30) mmol/L Anion Gap 9.6 (5-15) MEQ/L BUN 22 H (7-17) mg/dL Creatinine 1.13 H (0.52-1.04) mg/dL Estimated GFR 50.4 ML/MIN Glucose 133 H (74-106) mg/dL POC Glucometer (74 to 106) mg/dL Lactic Acid (0.4-2.0) Calcium 8.7 (8.4-10.2) mg/dL Iron (37-170) ug/dL TIBC (265-462) ug/dL Iron Saturation (20-39) % Ferritin (11.1-264) ng/mL Total Bilirubin 1.30 (0.2-1.3) mg/dL AST 35 (14-36) U/L ALT 26 (0-35) U/L Alkaline Phosphatase 90 (38-126) U/L Troponin I 0.024 (0.000-0.033) ng/mL NT-Pro-B Natriuret Pep (<300) pg/mL Serum Total Protein 7.3 (6.3-8.2) g/dL Albumin 3.5 (3.5-5.0) g/dL Prealbumin (17.6-36.0) mg/dL Vitamin B12 (239-931) pg/mL Folic Acid (2.76 - >20) ng/mL Free T4 (0.78-2.19) ng/dL TSH 3rd Generation 1.238 (0.470-4.680) mIU/L Urine Color (Yellow) Urine Appearance (Clear) Urine pH (4.6-8.0) Ur Specific [place] (1.005-1.030) Urine Protein (Negative) Urine Glucose (UA) (Negative) mg/dL Urine Ketones (Negative) Urine Blood (Negative) Urine Nitrite (Negative) Urine Bilirubin (Negative) Urine Urobilinogen (0.2) mg/dL Ur Leukocyte Esterase (Negative) U Hyaline Cast (Auto) (0-2) /LPF Urine Microscopic RBC (0-5) /HPF Urine Microscopic WBC (0-5) /HPF Ur Epithelial Cells (None Seen) /HPF Urine Bacteria (None Seen) /HPF Urine Culture Reflexed (NO) Influenza Type A Ag (NEGATIVE) Influenza Type B Ag (NEGATIVE) RSV (PCR) (NEGATIVE) SARS-CoV-2 (PCR) (NEGATIVE) 12/24/23 12/24/23 12/24/23 Range/Units 08:30 08:32 11:55 WBC (4.0-10.5) x10^3/uL RBC (4.1-5.4) x10^6/uL Hgb (12.0-16.0) g/dL Hct (35-47) % MCV (78-100) fL MCH (26-32) pg MCHC (32-36) g/dL RDW (11.5-14.0) % Plt Count (150-450) x10^3/uL MPV (7.5-11.0) fL Gran % (36.0-66.0) % Immature Gran % (Auto) (0.00-0.4) % Nucleat RBC Rel Count (0.00-0.1) % Eos # (Auto) (0-0.5) x10^3/uL Immature Gran # (Auto) (0.00-0.03) x10^3u/L Absolute Lymphs (auto) (1.0-4.6) x10^3/uL Absolute Monos (auto) (0.0-1.3) x10^3/uL Absolute Nucleated RBC (0.00-0.01) x10^3u/L Lymphocytes % (24.0-44.0) % Monocytes % (0.0-12.0) % Eosinophils % (0.00-5.0) % Basophils % (0.0-0.4) % Absolute Granulocytes (1.4-6.9) x10^3/uL Basophils # (0-0.4) x10^3/uL ESR (0-20) mm/hr Sodium (135-145) mmol/L Potassium (3.5-5.1) mmol/L Chloride (98-107) mmol/L Carbon Dioxide (22-30) mmol/L Anion Gap (5-15) MEQ/L BUN (7-17) mg/dL Creatinine (0.52-1.04) mg/dL Estimated GFR ML/MIN Glucose (74-106) mg/dL POC Glucometer (74 to 106) mg/dL Lactic Acid (0.4-2.0) Calcium (8.4-10.2) mg/dL Iron (37-170) ug/dL TIBC (265-462) ug/dL Iron Saturation (20-39) % Ferritin (11.1-264) ng/mL Total Bilirubin (0.2-1.3) mg/dL AST (14-36) U/L ALT (0-35) U/L Alkaline Phosphatase (38-126) U/L Troponin I 0.022 (0.000-0.033) ng/mL NT-Pro-B Natriuret Pep (<300) pg/mL Serum Total Protein (6.3-8.2) g/dL Albumin (3.5-5.0) g/dL Prealbumin (17.6-36.0) mg/dL Vitamin B12 (239-931) pg/mL Folic Acid (2.76 - >20) ng/mL Free T4 1.13 (0.78-2.19) ng/dL TSH 3rd Generation (0.470-4.680) mIU/L Urine Color (Yellow) Urine Appearance (Clear) Urine pH (4.6-8.0) Ur Specific [place] (1.005-1.030) Urine Protein (Negative) Urine Glucose (UA) (Negative) mg/dL Urine Ketones (Negative) Urine Blood (Negative) Urine Nitrite (Negative) Urine Bilirubin (Negative) Urine Urobilinogen (0.2) mg/dL Ur Leukocyte Esterase (Negative) U Hyaline Cast (Auto) (0-2) /LPF Urine Microscopic RBC (0-5) /HPF Urine Microscopic WBC (0-5) /HPF Ur Epithelial Cells (None Seen) /HPF Urine Bacteria (None Seen) /HPF Urine Culture Reflexed (NO) Influenza Type A Ag NEGATIVE (NEGATIVE) Influenza Type B Ag NEGATIVE (NEGATIVE) RSV (PCR) NEGATIVE (NEGATIVE) SARS-CoV-2 (PCR) NEGATIVE (NEGATIVE) 12/24/23 12/24/23 12/24/23 Range/Units 16:20 16:23 21:23 WBC (4.0-10.5) x10^3/uL RBC (4.1-5.4) x10^6/uL Hgb (12.0-16.0) g/dL Hct (35-47) % MCV (78-100) fL MCH (26-32) pg MCHC (32-36) g/dL RDW (11.5-14.0) % Plt Count (150-450) x10^3/uL MPV (7.5-11.0) fL Gran % (36.0-66.0) % Immature Gran % (Auto) (0.00-0.4) % Nucleat RBC Rel Count (0.00-0.1) % Eos # (Auto) (0-0.5) x10^3/uL Immature Gran # (Auto) (0.00-0.03) x10^3u/L Absolute Lymphs (auto) (1.0-4.6) x10^3/uL Absolute Monos (auto) (0.0-1.3) x10^3/uL Absolute Nucleated RBC (0.00-0.01) x10^3u/L Lymphocytes % (24.0-44.0) % Monocytes % (0.0-12.0) % Eosinophils % (0.00-5.0) % Basophils % (0.0-0.4) % Absolute Granulocytes (1.4-6.9) x10^3/uL Basophils # (0-0.4) x10^3/uL ESR (0-20) mm/hr Sodium (135-145) mmol/L Potassium (3.5-5.1) mmol/L Chloride (98-107) mmol/L Carbon Dioxide (22-30) mmol/L Anion Gap (5-15) MEQ/L BUN (7-17) mg/dL Creatinine (0.52-1.04) mg/dL Estimated GFR ML/MIN Glucose (74-106) mg/dL POC Glucometer 166 H 164 H (74 to 106) mg/dL Lactic Acid (0.4-2.0) Calcium (8.4-10.2) mg/dL Iron (37-170) ug/dL TIBC (265-462) ug/dL Iron Saturation (20-39) % Ferritin (11.1-264) ng/mL Total Bilirubin (0.2-1.3) mg/dL AST (14-36) U/L ALT (0-35) U/L Alkaline Phosphatase (38-126) U/L Troponin I 0.019 (0.000-0.033) ng/mL NT-Pro-B Natriuret Pep (<300) pg/mL Serum Total Protein (6.3-8.2) g/dL Albumin (3.5-5.0) g/dL Prealbumin (17.6-36.0) mg/dL Vitamin B12 (239-931) pg/mL Folic Acid (2.76 - >20) ng/mL Free T4 (0.78-2.19) ng/dL TSH 3rd Generation (0.470-4.680) mIU/L Urine Color (Yellow) Urine Appearance (Clear) Urine pH (4.6-8.0) Ur Specific [place] (1.005-1.030) Urine Protein (Negative) Urine Glucose (UA) (Negative) mg/dL Urine Ketones (Negative) Urine Blood (Negative) Urine Nitrite (Negative) Urine Bilirubin (Negative) Urine Urobilinogen (0.2) mg/dL Ur Leukocyte Esterase (Negative) U Hyaline Cast (Auto) (0-2) /LPF Urine Microscopic RBC (0-5) /HPF Urine Microscopic WBC (0-5) /HPF Ur Epithelial Cells (None Seen) /HPF Urine Bacteria (None Seen) /HPF Urine Culture Reflexed (NO) Influenza Type A Ag (NEGATIVE) Influenza Type B Ag (NEGATIVE) RSV (PCR) (NEGATIVE) SARS-CoV-2 (PCR) (NEGATIVE) 12/24/23 12/25/23 12/25/23 Range/Units Unknown 05:28 05:28 WBC 5.6 (4.0-10.5) x10^3/uL RBC 3.02 L (4.1-5.4) x10^6/uL Hgb 9.5 L (12.0-16.0) g/dL Hct 28.6 L (35-47) % MCV 94.7 (78-100) fL MCH 31.5 (26-32) pg MCHC 33.2 (32-36) g/dL RDW 16.0 H (11.5-14.0) % Plt Count 149 L (150-450) x10^3/uL MPV 10.5 (7.5-11.0) fL Gran % 59.7 (36.0-66.0) % Immature Gran % (Auto) 0.2 (0.00-0.4) % Nucleat RBC Rel Count 0.0 (0.00-0.1) % Eos # (Auto) 0.06 (0-0.5) x10^3/uL Immature Gran # (Auto) 0.01 (0.00-0.03) x10^3u/L Absolute Lymphs (auto) 1.60 (1.0-4.6) x10^3/uL Absolute Monos (auto) 0.57 (0.0-1.3) x10^3/uL Absolute Nucleated RBC 0.00 (0.00-0.01) x10^3u/L Lymphocytes % 28.5 (24.0-44.0) % Monocytes % 10.1 (0.0-12.0) % Eosinophils % 1.1 (0.00-5.0) % Basophils % 0.4 (0.0-0.4) % Absolute Granulocytes 3.36 (1.4-6.9) x10^3/uL Basophils # 0.02 (0-0.4) x10^3/uL ESR (0-20) mm/hr Sodium 137 (135-145) mmol/L Potassium 3.4 L (3.5-5.1) mmol/L Chloride 107 (98-107) mmol/L Carbon Dioxide 25 (22-30) mmol/L Anion Gap 7.2 (5-15) MEQ/L BUN 20 H (7-17) mg/dL Creatinine 1.09 H (0.52-1.04) mg/dL Estimated GFR 52.7 ML/MIN Glucose 95 (74-106) mg/dL POC Glucometer (74 to 106) mg/dL Lactic Acid (0.4-2.0) Calcium 8.1 L (8.4-10.2) mg/dL Iron (37-170) ug/dL TIBC (265-462) ug/dL Iron Saturation (20-39) % Ferritin (11.1-264) ng/mL Total Bilirubin 0.90 (0.2-1.3) mg/dL AST 33 (14-36) U/L ALT 22 (0-35) U/L Alkaline Phosphatase 68 (38-126) U/L Troponin I (0.000-0.033) ng/mL NT-Pro-B Natriuret Pep (<300) pg/mL Serum Total Protein 6.2 L (6.3-8.2) g/dL Albumin 2.8 L (3.5-5.0) g/dL Prealbumin (17.6-36.0) mg/dL Vitamin B12 (239-931) pg/mL Folic Acid (2.76 - >20) ng/mL Free T4 (0.78-2.19) ng/dL TSH 3rd Generation (0.470-4.680) mIU/L Urine Color Yellow (Yellow) Urine Appearance Clear (Clear) Urine pH 8.5 A (4.6-8.0) Ur Specific [place] 1.020 (1.005-1.030) Urine Protein 100 A (Negative) Urine Glucose (UA) Negative (Negative) mg/dL Urine Ketones Trace A (Negative) Urine Blood Negative (Negative) Urine Nitrite Negative (Negative) Urine Bilirubin Negative (Negative) Urine Urobilinogen 1.0 A (0.2) mg/dL Ur Leukocyte Esterase Negative (Negative) U Hyaline Cast (Auto) NONE SEEN (0-2) /LPF Urine Microscopic RBC 11-20 A (0-5) /HPF Urine Microscopic WBC 0-2 (0-5) /HPF Ur Epithelial Cells None Seen (None Seen) /HPF Urine Bacteria None Seen (None Seen) /HPF Urine Culture Reflexed NO (NO) Influenza Type A Ag (NEGATIVE) Influenza Type B Ag (NEGATIVE) RSV (PCR) (NEGATIVE) SARS-CoV-2 (PCR) (NEGATIVE) 12/25/23 Range/Units 06:44 WBC (4.0-10.5) x10^3/uL RBC (4.1-5.4) x10^6/uL Hgb (12.0-16.0) g/dL Hct (35-47) % MCV (78-100) fL MCH (26-32) pg MCHC (32-36) g/dL RDW (11.5-14.0) % Plt Count (150-450) x10^3/uL MPV (7.5-11.0) fL Gran % (36.0-66.0) % Immature Gran % (Auto) (0.00-0.4) % Nucleat RBC Rel Count (0.00-0.1) % Eos # (Auto) (0-0.5) x10^3/uL Immature Gran # (Auto) (0.00-0.03) x10^3u/L Absolute Lymphs (auto) (1.0-4.6) x10^3/uL Absolute Monos (auto) (0.0-1.3) x10^3/uL Absolute Nucleated RBC (0.00-0.01) x10^3u/L Lymphocytes % (24.0-44.0) % Monocytes % (0.0-12.0) % Eosinophils % (0.00-5.0) % Basophils % (0.0-0.4) % Absolute Granulocytes (1.4-6.9) x10^3/uL Basophils # (0-0.4) x10^3/uL ESR (0-20) mm/hr Sodium (135-145) mmol/L Potassium (3.5-5.1) mmol/L Chloride (98-107) mmol/L Carbon Dioxide (22-30) mmol/L Anion Gap (5-15) MEQ/L BUN (7-17) mg/dL Creatinine (0.52-1.04) mg/dL Estimated GFR ML/MIN Glucose (74-106) mg/dL POC Glucometer 96 (74 to 106) mg/dL Lactic Acid (0.4-2.0) Calcium (8.4-10.2) mg/dL Iron (37-170) ug/dL TIBC (265-462) ug/dL Iron Saturation (20-39) % Ferritin (11.1-264) ng/mL Total Bilirubin (0.2-1.3) mg/dL AST (14-36) U/L ALT (0-35) U/L Alkaline Phosphatase (38-126) U/L Troponin I (0.000-0.033) ng/mL NT-Pro-B Natriuret Pep (<300) pg/mL Serum Total Protein (6.3-8.2) g/dL Albumin (3.5-5.0) g/dL Prealbumin (17.6-36.0) mg/dL Vitamin B12 (239-931) pg/mL Folic Acid (2.76 - >20) ng/mL Free T4 (0.78-2.19) ng/dL TSH 3rd Generation (0.470-4.680) mIU/L Urine Color (Yellow) Urine Appearance (Clear) Urine pH (4.6-8.0) Ur Specific Cortez (1.005-1.030) Urine Protein (Negative) Urine Glucose (UA) (Negative) mg/dL Urine Ketones (Negative) Urine Blood (Negative) Urine Nitrite (Negative) Urine Bilirubin (Negative) Urine Urobilinogen (0.2) mg/dL Ur Leukocyte Esterase (Negative) U Hyaline Cast (Auto) (0-2) /LPF Urine Microscopic RBC (0-5) /HPF Urine Microscopic WBC (0-5) /HPF Ur Epithelial Cells (None Seen) /HPF Urine Bacteria (None Seen) /HPF Urine Culture Reflexed (NO) Influenza Type A Ag (NEGATIVE) Influenza Type B Ag (NEGATIVE) RSV (PCR) (NEGATIVE) SARS-CoV-2 (PCR) (NEGATIVE) Radiology Exams: Radiology Procedures Category Date Time Status ARTERIAL BILAT LOWER EXTREMITY [US] Routine Exams 12/26/23 08:00 Ordered CHEST 1 VIEW (PORTABLE) Stat Exams 12/24/23 08:13 Completed HEAD WITHOUT CONTRAST [CT] Stat Exams 12/24/23 08:10 Completed LOWER EXTREMITY WO CONTRAST [CT] Stat Exams 12/24/23 08:11 Completed LOWER EXTREMITY WO CONTRAST [CT] Stat Exams 12/24/23 08:18 Completed Multi-Disciplinary Progress Notes: Multi-Disciplinary Progress Notes 12/25/23 07:25 Pharmacy Note by Kwan Evans ZOSYN DOSING FOR RENAL FUNCTION cr CL = 40 ML/MIN ZOSYN 3.375 GM Q6H Pharmacy to follow sr cr kah Initialized on 12/25/23 07:25 - END OF NOTE 12/25/23 07:25 Pharmacy Note by Kwan Evans Pharmacokinetic dosing service Date: 12/24/2023 Time: 1630 Objective: Patient: Ernestine Verdin Floor: 113 Age: 78 yo Serum creatinine: 1.13 mg/dL Height: 66 Inches Weight (kg): 119 Diagnosis: bilateral skin infection lower legs Relevant medical/social history: Cultures and sensitivities: pending Other labs: wbc = 7.2 Assessment: IBW (kg): 59.30 Dosing wt(kg): 119 Estimated Creatinine clearance (ml/min): 39.6 CRCL method: Cockcroft and Gault using ibw(default). Drug selected: Vancomycin Loading dose (mg): 0 Vd (liters): 95.2 (factor used: 0.8 L/kg) Marco (hr-1): 0.037 Half life (hrs): 18.73 Recommended dose: 1500 mg Interval: 18 hrs Infusion time (hrs): 2.0 Predicted peak (mcg/mL): 31.2 Predicted trough (mcg/mL): 17.26 Total body weight is being used for vancomycin dosing. Renal function is stable [xxx ] /unstable [ ] Recommendations: Give Vancomycin 1500 mg q 18 hrs with an expected Cpeak of 31.2 mcg/ml and an expected Ctrough of 17.26 mcg/ml Renal dosing of other antibiotics (review renal dosing of other medications and list guidelines here): zosyn 3.375 gm q6h Thank you for the consult, will continue to follow. Signature: Jasen Evans Initialized on 12/25/23 07:25 - END OF NOTE Assessment/Plan (1) Bilateral lower leg cellulitis Current Visit: Yes Status: Chronic Assessment & Plan: (1) Bilateral lower leg cellulitis Current Visit: Yes Status: Chronic Assessment & Plan: - CT imaging of the right and left lower extremities with findings of diffuse left leg skin thickening with subcutaneous edema along all its aspects, Likely infective / inflammatory disease process, and diffuse right leg skin thickening with subcutaneous edema along all its aspects -Podiatry consulted for possible debridement/Unna boots, appreciate recs -Vanc/Rocephin in ED, will continue Vanc/zosyn - follow culture -LA WNL -ESR, CRP -Elevate BLE -Cliff borders -Unable to obtain MRI due to pacemaker -arterial duplex when available 12/24: -Continue vanc/zosyn - follow cultures -art duplex pending -podiatry note reviewed, appreciate recs, agree with plan -Lasix 40mg IV QD Code(s): L03.116 - CELLULITIS OF LEFT LOWER LIMB; L03.115 - CELLULITIS OF RIGHT LOWER LIMB (2) Ulcers of both lower extremities Current Visit: Yes Status: Acute Assessment & Plan: -see cellulitis -Plan for podiatry consult for possible debridement/ vanc/zosyn 12/24: -s/p debridement per podiatry 12/24/23 - note reviewed -Iodine paint to legs adaptic cast padding, kerlix and coban was applied Multilayer compression dressing applied with light compression until results from doppler obtained -wound therapy/ID/Podiatry follow up post d/c Code(s): L97.919 - NON-PRS CHRONIC ULC UNSP PRT OF R LOW LEG W UNSP SEVERITY; L97.929 - NON-PRS CHRONIC ULC UNSP PRT OF L LOW LEG W UNSP SEVERITY (3) Confusion Current Visit: Yes Status: Acute Assessment & Plan: -CT head with no definite evidence of territorial infarctions - family states patient is at baseline-Has h/o TIA and dementia- most likely secondary to infection -consider neuro consult if no improvement -unable to obtain MRI due to pacemaker -BG levels WNL -TSH level WNL 12/24: -Pt at baseline today Code(s): R41.0 - DISORIENTATION, UNSPECIFIED #ELIS -Mild- baseline around 0.8-1, patient at 1.09 -improved from admission -monitor renal/lytes daily -Avoid nephrotoxic agents such as ANABEL/ARB/NSAIDS #Hypokalemia -mild at 3.4, will replenish per protocol -Tele -monitor renal/lytes dainicholas (4) Microcytic anemia Current Visit: Yes Status: Acute Assessment & Plan: -at baseline, will continue to monitor, transfusion if hgb <7 -add iron panel 12/24: -Hgb 9.5, iron sat at 9%, continue iron supplementation Code(s): D50.9 - IRON DEFICIENCY ANEMIA, UNSPECIFIED (5) Type 2 diabetes mellitus Current Visit: Yes Status: Acute Assessment & Plan: -ADA mechanical soft diet -SSI /glargine -A1c (6) CHF (congestive heart failure) Current Visit: Yes Status: Acute Assessment & Plan: -No recent ECHO on file -BNP elevated at 754 -EKG - Sinus Rhythm, Right [place] Deviation, Right Bundle Branch Block, Non- specific ST Changes, Other /Trops wnl x 2 -CXR pending -Patient follows with Dr. More, will attempt to obtain records 12/24: -CXR with no acute findings Code(s): I50.9 - HEART FAILURE, UNSPECIFIED (7) History of DVT (deep vein thrombosis) Current Visit: Yes Status: Acute Assessment & Plan: -Per family h/o RLE DVT continue home xarelto Code(s): Z86.718 - PERSONAL HISTORY OF OTHER VENOUS THROMBOSIS AND EMBOLISM (8) ALEXEY (obstructive sleep apnea) Current Visit: Yes Status: Acute Assessment & Plan: -CPAP Code(s): G47.33 - OBSTRUCTIVE SLEEP APNEA (ADULT) (PEDIATRIC) (9) Hypothyroid Current Visit: Yes Status: Acute Assessment & Plan: -continue levothyroxine Code(s): E03.9 - HYPOTHYROIDISM, UNSPECIFIED (10) Neuropathy Current Visit: Yes Status: Acute Assessment & Plan: -continue home meds Code(s): G62.9 - POLYNEUROPATHY, UNSPECIFIED (11) Afib Current Visit: Yes Status: Acute Assessment & Plan: -continue metoprolol/xarelto -Pacemaker Code(s): I48.91 - UNSPECIFIED ATRIAL FIBRILLATION (12) CAD (coronary artery disease) Current Visit: Yes Status: Acute Assessment & Plan: -with stent placement -continue home meds VTE: Xarelto PPI: Protonix Next of Kin: Lilly card - [phone] Code(s): L03.116 - CELLULITIS OF LEFT LOWER LIMB; L03.115 - CELLULITIS OF RIGHT LOWER LIMB (2) ELIS (acute kidney injury) Current Visit: Yes Status: Acute Code(s): N17.9 - ACUTE KIDNEY FAILURE, UNSPECIFIED (3) Ulcers of both lower extremities Current Visit: Yes Status: Acute Code(s): L97.919 - NON-PRS CHRONIC ULC UNSP PRT OF R LOW LEG W UNSP SEVERITY; L97.929 - NON-PRS CHRONIC ULC UNSP PRT OF L LOW LEG W UNSP SEVERITY (4) Hypokalemia Current Visit: Yes Status: Acute Code(s): E87.6 - HYPOKALEMIA (5) Confusion Current Visit: Yes Status: Acute Code(s): R41.0 - DISORIENTATION, UNSPECIFIED (6) Microcytic anemia Current Visit: Yes Status: Acute Code(s): D50.9 - IRON DEFICIENCY ANEMIA, UNSPECIFIED (7) Type 2 diabetes mellitus Current Visit: Yes Status: Acute (8) CHF (congestive heart failure) Current Visit: Yes Status: Acute Code(s): I50.9 - HEART FAILURE, UNSPECIFIED (9) History of DVT (deep vein thrombosis) Current Visit: Yes Status: Acute Code(s): Z86.718 - PERSONAL HISTORY OF OTHER VENOUS THROMBOSIS AND EMBOLISM (10) ALEXEY (obstructive sleep apnea) Current Visit: Yes Status: Acute Code(s): G47.33 - OBSTRUCTIVE SLEEP APNEA (ADULT) (PEDIATRIC) (11) Hypothyroid Current Visit: Yes Status: Acute Code(s): E03.9 - HYPOTHYROIDISM, UNSPECIFIED (12) Neuropathy Current Visit: Yes Status: Acute Code(s): G62.9 - POLYNEUROPATHY, UNSPECIFIED (13) Afib Current Visit: Yes Status: Acute Code(s): I48.91 - UNSPECIFIED ATRIAL FIBRILLATION (14) CAD (coronary artery disease) Current Visit: Yes Status: Acute Code(s): I25.10 - ATHSCL HEART DISEASE OF [place] CORONARY ARTERY W/O ANG PCTRS
[2023-12-25] MEDS: VITAMIN D PO SCH (09:12)
[2023-12-25] MEDS: ZYLOPRIM 100 MG PO SCH (09:13)
[2023-12-25] MEDS: XARELTO 10 MG TABLET PO SCH (09:14)
[2023-12-25] MEDS: Cymbalta 30 MG Capsule PO SCH (09:15)
[2023-12-25] MEDS: MYRBETRIQ PO SCH (09:16)
[2023-12-25] MEDS: THERAGRAN MULTIVITAMIN PO SCH (09:16)
[2023-12-25] MEDS: SYNTHROID 25 MCG PO SCH (09:16)
[2023-12-25] MEDS: Calcium 500MG W/Vit D Tablet PO SCH (09:16)
[2023-12-25] MEDS: Depakote EXTENDED RELEASE 250 MG PO SCH (09:17)
[2023-12-25] MEDS: Protonix 40MG Tablet PO SCH (09:20)
[2023-12-25] MEDS: Klor Con PO SCH (09:26)
[2023-12-25] MEDS ORDERED: Cymbalta 30 MG Capsule PO SCH ×2 (10:00)
[2023-12-25] MEDS ORDERED: VITAMIN D3 PO SCH (10:00)
[2023-12-25] MEDS ORDERED: NON-FORMULARY ITEM (Levothyroxine Sodium [Levothyroxine Sodium] 25 MCG Capsule) PO SCH (10:00)
[2023-12-25] MEDS ORDERED: [UNRECOGNIZED DRUG - OTHER] PO SCH (10:00)
[2023-12-25] MEDS ORDERED: CALCIUM CARB PO SCH (10:00)
[2023-12-25] MEDS ORDERED: CHOLECALCIFEROL 100 MCG PO SCH (10:00)
[2023-12-25] MEDS ORDERED: NON-FORMULARY ITEM (Rivaroxaban [Xarelto] 15 MG Tablet) PO SCH (10:00)
[2023-12-25] MEDS ORDERED: FEOSOL 325 MG PO SCH (10:00)
[2023-12-25] MEDS ORDERED: VIT K2 PO SCH (10:00)
[2023-12-25] MEDS ORDERED: NON-FORMULARY ITEM (Multivitamin [Multi-Vitamin Daily] 1 EACH Tablet) PO SCH (10:00)
[2023-12-26 08:28] LABS: Absolute Neutrophil Ct (ANC) 2.56 x10^3/uL (1.4-6.9); BASOPHIL % 0.4 % (0.0-0.4); Basophil (Absolute #) 0.02 x10^3/uL (0-0.4); Eosinophil % 1.8 % (0.00-5.0); Eosinophil (Absolute #) 0.09 x10^3/uL (0-0.5); Hematocrit 30.2 % (35-47); Hemoglobin 9.7 g/dL (12.0-16.0); IMMATURE GRAN # 0.01 x10^3u/L (0.00-0.03); IMMATURE GRAN % 0.2 % (0.00-0.4); Lymphocyte (Absolute #) 1.84 x10^3/uL (1.0-4.6); Lymphocytes % 36.6 % (24.0-44.0); Mean Cell Volume 95.9 fL (78-100); Mean Corpuscular Hemoglobin 30.8 pg (26-32); Mean Corpuscular Hgb Concent. 32.1 g/dL (32-36); Mean Platelet Volume 10.6 fL (7.5-11.0); Monocyte (Absolute #) 0.51 x10^3/uL (0.0-1.3); Monocytes % 10.1 % (0.0-12.0); Neutrophil % 50.9 % (36.0-66.0); Platelet Count 162 x10^3/uL (150-450); Red Blood Count 3.15 x10^6/uL (4.1-5.4); Red Cell Distribution Width 15.1 % (11.5-14.0)
[2023-12-26 09:05] LABS: ALBUMIN 2.9 g/dL (3.5-5.0); BILIRUBIN,TOTAL 0.7 mg/dL (0.2-1.3); Calcium 8.3 mg/dL (8.4-10.2); Creatinine 1 1.1 mg/dL (0.52-1.04); EST GLOMERULAR FILTRATION RATE 52.1 ML/MIN; Potassium 3.8 mmol/L (3.5-5.1); Total Protein 6.4 g/dL (6.3-8.2)
[2023-12-26] MEDS ORDERED: Merrem 1 GM in Sodium Chloride 100ML MINI-BAG PLUS 100 ML IV SCH (10:00)
--- NOTE | 2023-12-26 11:41 | XRAY ---
Indication: Calf pain. History DVT. Current blood thinner therapy. Two-dimensional sonogram and color Doppler imaging major venous vessels right leg performed. Comparison: None No thrombus seen in the examined deep venous vessels right leg including greater saphenous vein. Veins demonstrate normal compressibility. Venous waveforms are normal with and without augmentation. Impression: Right leg negative for DVT.
--- NOTE | 2023-12-26 11:44 | XRAY ---
Indication: Bilateral lower extremity ulcerations. Two-dimensional sonogram and color Doppler imaging major arteries left and right leg performed. Comparison: None Examination right leg demonstrates widely patent common femoral, deep femoral, superficial femoral, popliteal, and dorsal pedal arteries. Arteriosclerotic disease in remaining posterior tibial artery. Arterial waveforms are multiphasic throughout right leg. Right arm brachial pressure is 116. Right ankle pressure is 119. Ankle brachial index is 1.0, normal. Examination left leg demonstrates widely patent common femoral, deep femoral and mid to proximal superficial femoral arteries. Scattered arteriosclerotic disease in the remaining mid to distal superficial femoral, popliteal, posterior tibial, and dorsal pedal arteries. Arterial waveforms are multiphasic throughout the left leg. Left arm brachial pressure is 119. Left ankle pressure is 109. Ankle brachial index is 0.92, normal. Impression: Scattered arteriosclerotic disease, left leg greater than right. Negative for critical stenosis/obstruction. Left and right ABIs are normal.
[2023-12-26] MEDS: PHARMACY DOSING REQUEST MC ONE (11:49)
[2023-12-26] MEDS: Lasix 40 MG/4 ML IV SCH (11:57)
--- NOTE | 2023-12-26 11:57 | PCM.NOTE ---
Date and Time: 12/26/23 1148 Subjective Assessment: is a 78 year old female admitted with BLE venous insufficency ulceration with superimposed cellulitis after the patient was brought in to the ED from [facility] after staff noticed patient was experiencing confusion and increased purulent drainage from chronic BLE ulcers. Podiatry consulted with shahid ridement performed 12/25/23. Initial treament with vancomycin and zosyn - wound cultures showing proteus mirabilis - abx changed to Merrem. Iodine paint to legs adaptic cast padding, kerlix and coban was applied. Multilayer compression dressing applied with light compression until results from doppler obtained due to h/o DVT. 12/25/23: Met with patient bedside. S/P debridement performed bedside 12/24/23 by podiatry. She is A&O x 4, afebrile overnight, and endorses that she is feeling much improved today. Labs and vitals are stable. Denies fever,cough, sob, cp, abdominal pain, LINARES, dizziness, N/V/D. Plan for continued abx - follow cultures. Arterial duplex Tues. 12/25: Patient up in chair and doing well. Does endorse pain to her RLE this morning. She feels her compression dressing may be too tight. Venous and Arterial dopplers pending. Discussed wound culture showing proteus mirabilis- ? ESBL, culture has been sent to reference lab for identification/sens. Abx changed to Merrem. Denies fever,cough, sob, cp, abdominal pain, LINARES, dizziness, N/V/D. - Review of Systems Constitutional: No Symptoms Eyes: No Symptoms Ears, Nose, & Throat: No Symptoms Respiratory: No Symptoms Cardiac: No Symptoms Abdominal/Gastrointestinal: No Symptoms Genitourinary Symptoms: No Symptoms Musculoskeletal: Other (RLE pain behind knee) Skin: Cellulitis, Skin Lesions Neurological: No Symptoms Psychological: No Symptoms Endocrine: No Symptoms Hematologic/Lymphatic: No Symptoms Immunological/Allergic: No Symptoms Objective Exam General Appearance: no apparent distress Neurologic Exam: alert, oriented x 3, cooperative Skin Exam: other (see wound assessment) Wound Assessment: Skin/Wound Assessment Wound/Incision Assessment Start: 12/24/23 13:27 Text: Status: Active Freq: Q6H Protocol: Document 12/26/23 08:00 RDUHNE (Rec: 12/26/23 09:23 [email or web address] [id number]) Wound/Incision Assessment left anterior outer leg Wound Assessment Shift Assessment Wound Type Stasis Ulcer Wound Stage Stage III Length (cm) (cm) 5 Width (cm) (cm) 7 Comment warren boots in place per Dr. Jerez. C/D/I Right Lower Anterior Medial Wound Assessment Shift Assessment Wound Type Stasis Ulcer Wound Stage Stage III Length (cm) (cm) 3 Width (cm) (cm) 3 Comment warren boots in place per Dr. Jerez, C/D/I Left Lower Wound Assessment Shift Assessment Wound Type Stasis Ulcer Wound Stage Stage III Dressing Status Dry & Intact Drainage Description Purulent Drainage Odor Foul Odor Length (cm) (cm) 4 Width (cm) (cm) 4 Comment warren boots in place per pau, no bleeding or drainage. extremity w/p/d- reamns true Left Upper Anterior Wound Assessment Shift Assessment Wound Type Stasis Ulcer Wound Stage Stage III Length (cm) (cm) 6 Width (cm) (cm) 5 Right Lower Anterior Wound Assessment Shift Assessment Wound Type Stasis Ulcer Wound Stage Stage III Length (cm) (cm) 4 Width (cm) (cm) 5 Wound Photo Photo Taken Yes Comment: in chart Eye Exam: PERRL Ears, Nose, Throat Exam: normal ENT inspection Neck Exam: normal inspection Respiratory Exam: normal breath sounds, lungs clear Cardiovascular Exam: regular rate/rhythm, normal heart sounds Gastrointestinal/Abdomen Exam: soft, normal bowel sounds Extremity Exam: inflammation, swelling, tenderness, other (BLE in compression dressing, erythema receeding marked borders, improved edema) Back Exam: normal inspection Pelvic Exam: deferred Objective Data Vital Signs: Vital Signs - 24 hr Temp Pulse Resp BP Pulse Ox 12/26/23 08:00 97.0 F 62 18 114/56 96 12/26/23 04:00 97.0 F 63 16 126/59 94 L 12/25/23 23:52 96.8 F 56 L 16 103/55 94 L 12/25/23 19:06 96.7 F 77 16 103/54 97 12/25/23 16:00 97.7 F 64 16 96/54 98 Pain Assessment - Last Documented Pain Intensity 0 Intake and Output: Intake & Output 12/23/23 12/24/23 12/25/23 12/26/23 11:59 11:59 11:59 11:59 Intake Total 1000 2060 Output Total 1500 400 Balance -500 1660 Weight 118.8 kg 119 kg Lab Results: Lab Results-Last 24 Hours 12/25/23 12/25/23 12/25/23 Range/Units 11:35 15:45 16:10 WBC (4.0-10.5) x10^3/uL RBC (4.1-5.4) x10^6/uL Hgb (12.0-16.0) g/dL Hct (35-47) % MCV (78-100) fL MCH (26-32) pg MCHC (32-36) g/dL RDW (11.5-14.0) % Plt Count (150-450) x10^3/uL MPV (7.5-11.0) fL Gran % (36.0-66.0) % Immature Gran % (Auto) (0.00-0.4) % Nucleat RBC Rel Count (0.00-0.1) % Eos # (Auto) (0-0.5) x10^3/uL Immature Gran # (Auto) (0.00-0.03) x10^3u/L Absolute Lymphs (auto) (1.0-4.6) x10^3/uL Absolute Monos (auto) (0.0-1.3) x10^3/uL Absolute Nucleated RBC (0.00-0.01) x10^3u/L Lymphocytes % (24.0-44.0) % Monocytes % (0.0-12.0) % Eosinophils % (0.00-5.0) % Basophils % (0.0-0.4) % Absolute Granulocytes (1.4-6.9) x10^3/uL Basophils # (0-0.4) x10^3/uL Sodium (135-145) mmol/L Potassium 3.6 3.7 (3.5-5.1) mmol/L Chloride (98-107) mmol/L Carbon Dioxide (22-30) mmol/L Anion Gap (5-15) MEQ/L BUN (7-17) mg/dL Creatinine (0.52-1.04) mg/dL Estimated GFR ML/MIN Glucose (74-106) mg/dL POC Glucometer 122 H (74 to 106) mg/dL Calcium (8.4-10.2) mg/dL Total Bilirubin (0.2-1.3) mg/dL AST (14-36) U/L ALT (0-35) U/L Alkaline Phosphatase (38-126) U/L Serum Total Protein (6.3-8.2) g/dL Albumin (3.5-5.0) g/dL 12/25/23 12/26/23 12/26/23 Range/Units 21:13 06:35 08:11 WBC 5.0 (4.0-10.5) x10^3/uL RBC 3.15 L (4.1-5.4) x10^6/uL Hgb 9.7 L (12.0-16.0) g/dL Hct 30.2 L (35-47) % MCV 95.9 (78-100) fL MCH 30.8 (26-32) pg MCHC 32.1 (32-36) g/dL RDW 15.1 H (11.5-14.0) % Plt Count 162 (150-450) x10^3/uL MPV 10.6 (7.5-11.0) fL Gran % 50.9 (36.0-66.0) % Immature Gran % (Auto) 0.2 (0.00-0.4) % Nucleat RBC Rel Count 0.0 (0.00-0.1) % Eos # (Auto) 0.09 (0-0.5) x10^3/uL Immature Gran # (Auto) 0.01 (0.00-0.03) x10^3u/L Absolute Lymphs (auto) 1.84 (1.0-4.6) x10^3/uL Absolute Monos (auto) 0.51 (0.0-1.3) x10^3/uL Absolute Nucleated RBC 0.00 (0.00-0.01) x10^3u/L Lymphocytes % 36.6 (24.0-44.0) % Monocytes % 10.1 (0.0-12.0) % Eosinophils % 1.8 (0.00-5.0) % Basophils % 0.4 (0.0-0.4) % Absolute Granulocytes 2.56 (1.4-6.9) x10^3/uL Basophils # 0.02 (0-0.4) x10^3/uL Sodium (135-145) mmol/L Potassium (3.5-5.1) mmol/L Chloride (98-107) mmol/L Carbon Dioxide (22-30) mmol/L Anion Gap (5-15) MEQ/L BUN (7-17) mg/dL Creatinine (0.52-1.04) mg/dL Estimated GFR ML/MIN Glucose (74-106) mg/dL POC Glucometer 241 H 100 (74 to 106) mg/dL Calcium (8.4-10.2) mg/dL Total Bilirubin (0.2-1.3) mg/dL AST (14-36) U/L ALT (0-35) U/L Alkaline Phosphatase (38-126) U/L Serum Total Protein (6.3-8.2) g/dL Albumin (3.5-5.0) g/dL 12/26/23 12/26/23 Range/Units 08:11 11:23 WBC (4.0-10.5) x10^3/uL RBC (4.1-5.4) x10^6/uL Hgb (12.0-16.0) g/dL Hct (35-47) % MCV (78-100) fL MCH (26-32) pg MCHC (32-36) g/dL RDW (11.5-14.0) % Plt Count (150-450) x10^3/uL MPV (7.5-11.0) fL Gran % (36.0-66.0) % Immature Gran % (Auto) (0.00-0.4) % Nucleat RBC Rel Count (0.00-0.1) % Eos # (Auto) (0-0.5) x10^3/uL Immature Gran # (Auto) (0.00-0.03) x10^3u/L Absolute Lymphs (auto) (1.0-4.6) x10^3/uL Absolute Monos (auto) (0.0-1.3) x10^3/uL Absolute Nucleated RBC (0.00-0.01) x10^3u/L Lymphocytes % (24.0-44.0) % Monocytes % (0.0-12.0) % Eosinophils % (0.00-5.0) % Basophils % (0.0-0.4) % Absolute Granulocytes (1.4-6.9) x10^3/uL Basophils # (0-0.4) x10^3/uL Sodium 139 (135-145) mmol/L Potassium 3.8 (3.5-5.1) mmol/L Chloride 108 H (98-107) mmol/L Carbon Dioxide 26 (22-30) mmol/L Anion Gap 9.0 (5-15) MEQ/L BUN 20 H (7-17) mg/dL Creatinine 1.10 H (0.52-1.04) mg/dL Estimated GFR 52.1 ML/MIN Glucose 109 H (74-106) mg/dL POC Glucometer 236 H (74 to 106) mg/dL Calcium 8.3 L (8.4-10.2) mg/dL Total Bilirubin 0.70 (0.2-1.3) mg/dL AST 32 (14-36) U/L ALT 24 (0-35) U/L Alkaline Phosphatase 71 (38-126) U/L Serum Total Protein 6.4 (6.3-8.2) g/dL Albumin 2.9 L (3.5-5.0) g/dL Radiology Exams: Radiology Procedures Category Date Time Status ARTERIAL BILAT LOWER EXTREMITY [US] Routine Exams 12/26/23 08:00 Completed VENOUS UNILAT/LIMITED EXTREMIT [US] Urgent Exams 12/26/23 09:54 Completed Multi-Disciplinary Progress Notes: Multi-Disciplinary Progress Notes 12/26/23 11:25 Pharmacy Note by Gaetano Holguin Please be aware of possible drug interaction with Merrem and Depakote. May decrease Depakote level. Patient is taking Depakote for headaches. Initialized on 12/26/23 11:25 - END OF NOTE 12/26/23 10:54 Case Management Note by Christelle Olmos/[facility] AT [facility]- SHE REPORTS PATIENT CAN RETURN TO THEIR FACILITY WHENEVER MEDICALLY READY FOR DC. SHE WAS NOTIFIED OF CONCERNS OF HYGIENE NOTED IN PROGRESS NOTES. SHE IS ON LARGE AMOUNT OF DIURETICS AT HOME AND HAS BEEN INCONTINENT OF STOOL HERE. SHE NOTED CONCERNS AND WILL CHECK ON THIS AND SEE IF THERE IS ANYTHING ADDITIONAL THEY CAN DO TO KEEP WRAPS CLEAN AT FACILITY Initialized on 12/26/23 10:54 - END OF NOTE Assessment/Plan (1) Bilateral lower leg cellulitis Current Visit: Yes Status: Chronic Assessment & Plan: - CT imaging of the right and left lower extremities with findings of diffuse left leg skin thickening with subcutaneous edema along all its aspects, Likely infective / inflammatory disease process, and diffuse right leg skin thickening with subcutaneous edema along all its aspects -Podiatry consulted for possible debridement/Unna boots, appreciate recs -Vanc/Rocephin in ED, will continue Vanc/zosyn - follow culture -LA WNL -ESR, CRP -Elevate BLE -Cliff borders -Unable to obtain MRI due to pacemaker -arterial duplex when available 12/24: -Continue vanc/zosyn - follow cultures -art duplex pending -podiatry note reviewed, appreciate recs, agree with plan -Lasix 40mg IV QD 12/25: -culture showing proteus mirabillis, sent to reference lab for ID, abx changed to Merrem -Podiatry following with dressing changes -Art/venous dopplers pending Code(s): L03.116 - CELLULITIS OF LEFT LOWER LIMB; L03.115 - CELLULITIS OF RIGHT LOWER LIMB (2) Ulcers of both lower extremities Current Visit: Yes Status: Acute Assessment & Plan: -see cellulitis -Plan for podiatry consult for possible debridement/ vanc/zosyn 12/24: -s/p debridement per podiatry 12/24/23 - note reviewed -Iodine paint to legs adaptic cast padding, kerlix and coban was applied Multilayer compression dressing applied with light compression until results from doppler obtained -wound therapy/ID/Podiatry follow up post d/c 12/25: -wound culture with proteus mirabillis, see above, plan to change abx to Merrem -Dopplers Art/venous pending Code(s): L97.919 - NON-PRS CHRONIC ULC UNSP PRT OF R LOW LEG W UNSP SEVERITY; L97.929 - NON-PRS CHRONIC ULC UNSP PRT OF L LOW LEG W UNSP SEVERITY (3) Confusion Current Visit: Yes Status: Acute Assessment & Plan: -CT head with no definite evidence of territorial infarctions - family states patient is at baseline-Has h/o TIA and dementia- most likely secondary to infection -consider neuro consult if no improvement -unable to obtain MRI due to pacemaker -BG levels WNL -TSH level WNL 12/24: -Pt at baseline today Code(s): R41.0 - DISORIENTATION, UNSPECIFIED #ELIS -Mild- baseline around 0.8-1, patient at 1.10 -improved from admission -monitor renal/lytes daily -Avoid nephrotoxic agents such as ANABEL/ARB/NSAIDS #Hypokalemia -mild at 3.4, will replenish per protocol -Tele -monitor renal/lytes daiy 12/25: -resolved (4) Microcytic anemia Current Visit: Yes Status: Acute Assessment & Plan: -at baseline, will continue to monitor, transfusion if hgb <7 -add iron panel 12/24: -Hgb 9.5, iron sat at 9%, continue iron supplementation Code(s): D50.9 - IRON DEFICIENCY ANEMIA, UNSPECIFIED (5) Type 2 diabetes mellitus Current Visit: Yes Status: Acute Assessment & Plan: -ADA mechanical soft diet -SSI /glargine -A1c 12/25: -change to moderate SSI (6) CHF (congestive heart failure) Current Visit: Yes Status: Acute Assessment & Plan: -No recent ECHO on file -BNP elevated at 754 -EKG - Sinus Rhythm, Right [place] Deviation, Right Bundle Branch Block, Non- specific ST Changes, Other /Trops wnl x 2 -CXR pending -Patient follows with Dr. More, will attempt to obtain records 12/24: -CXR with no acute findings Code(s): I50.9 - HEART FAILURE, UNSPECIFIED (7) History of DVT (deep vein thrombosis) Current Visit: Yes Status: Acute Assessment & Plan: -Per family h/o RLE DVT continue home xarelto Code(s): Z86.718 - PERSONAL HISTORY OF OTHER VENOUS THROMBOSIS AND EMBOLISM (8) ALEXEY (obstructive sleep apnea) Current Visit: Yes Status: Acute Assessment & Plan: -CPAP Code(s): G47.33 - OBSTRUCTIVE SLEEP APNEA (ADULT) (PEDIATRIC) (9) Hypothyroid Current Visit: Yes Status: Acute Assessment & Plan: -continue levothyroxine Code(s): E03.9 - HYPOTHYROIDISM, UNSPECIFIED (10) Neuropathy Current Visit: Yes Status: Acute Assessment & Plan: -continue home meds Code(s): G62.9 - POLYNEUROPATHY, UNSPECIFIED (11) Afib Current Visit: Yes Status: Acute Assessment & Plan: -continue metoprolol/xarelto -Pacemaker Code(s): I48.91 - UNSPECIFIED ATRIAL FIBRILLATION (12) CAD (coronary artery disease) Current Visit: Yes Status: Acute Assessment & Plan: -with stent placement -continue home meds VTE: Xarelto PPI: Protonix Next of Kin: Lilly card - [phone] Code(s): L03.116 - CELLULITIS OF LEFT LOWER LIMB; L03.115 - CELLULITIS OF RIGHT LOWER LIMB Code(s): L03.116 - CELLULITIS OF LEFT LOWER LIMB; L03.115 - CELLULITIS OF RIGHT LOWER LIMB (2) ELIS (acute kidney injury) Current Visit: Yes Status: Acute Code(s): N17.9 - ACUTE KIDNEY FAILURE, UNSPECIFIED (3) Ulcers of both lower extremities Current Visit: Yes Status: Acute Code(s): L97.919 - NON-PRS CHRONIC ULC UNSP PRT OF R LOW LEG W UNSP SEVERITY; L97.929 - NON-PRS CHRONIC ULC UNSP PRT OF L LOW LEG W UNSP SEVERITY (4) Hypokalemia Current Visit: Yes Status: Acute Code(s): E87.6 - HYPOKALEMIA (5) Confusion Current Visit: Yes Status: Acute Code(s): R41.0 - DISORIENTATION, UNSPECIFIED (6) Microcytic anemia Current Visit: Yes Status: Acute Code(s): D50.9 - IRON DEFICIENCY ANEMIA, UNSPECIFIED (7) Type 2 diabetes mellitus Current Visit: Yes Status: Acute (8) CHF (congestive heart failure) Current Visit: Yes Status: Acute Code(s): I50.9 - HEART FAILURE, UNSPECIFIED (9) History of DVT (deep vein thrombosis) Current Visit: Yes Status: Acute Code(s): Z86.718 - PERSONAL HISTORY OF OTHER VENOUS THROMBOSIS AND EMBOLISM (10) ALEXEY (obstructive sleep apnea) Current Visit: Yes Status: Acute Code(s): G47.33 - OBSTRUCTIVE SLEEP APNEA (ADULT) (PEDIATRIC) (11) Hypothyroid Current Visit: Yes Status: Acute Code(s): E03.9 - HYPOTHYROIDISM, UNSPECIFIED (12) Neuropathy Current Visit: Yes Status: Acute Code(s): G62.9 - POLYNEUROPATHY, UNSPECIFIED (13) Afib Current Visit: Yes Status: Acute Code(s): I48.91 - UNSPECIFIED ATRIAL FIBRILLATION (14) CAD (coronary artery disease) Current Visit: Yes Status: Acute Code(s): I25.10 - ATHSCL HEART DISEASE OF [place] CORONARY ARTERY W/O ANG PCTRS
[2023-12-26] MEDS: Merrem 1 GM in Sodium Chloride 100ML MINI-BAG PLUS 100 ML IV SCH (12:27)
[2023-12-26] MEDS: HUMALOG SQ PRN (12:38)
[2023-12-26] MEDS ORDERED: TROUGH DRUG LEVELS IJ ONE (19:30)
[2023-12-27 04:43] LABS: Absolute Neutrophil Ct (ANC) 2.11 x10^3/uL (1.4-6.9); BASOPHIL % 0.7 % (0.0-0.4); Basophil (Absolute #) 0.03 x10^3/uL (0-0.4); Eosinophil % 2.2 % (0.00-5.0); Hematocrit 29.5 % (35-47); Hemoglobin 9.7 g/dL (12.0-16.0); Lymphocyte (Absolute #) 1.87 x10^3/uL (1.0-4.6); Lymphocytes % 40.8 % (24.0-44.0); Mean Cell Volume 95.2 fL (78-100); Mean Corpuscular Hemoglobin 31.3 pg (26-32); Mean Corpuscular Hgb Concent. 32.9 g/dL (32-36); Mean Platelet Volume 10.3 fL (7.5-11.0); Monocyte (Absolute #) 0.47 x10^3/uL (0.0-1.3); Monocytes % 10.3 % (0.0-12.0); Platelet Count 175 x10^3/uL (150-450); Red Cell Distribution Width 15.1 % (11.5-14.0); White Blood Count 4.6 x10^3/uL (4.0-10.5)
[2023-12-27 05:07] LABS: ALBUMIN 2.9 g/dL (3.5-5.0); ANION GAP 7.1 MEQ/L (5-15); BILIRUBIN,TOTAL 0.7 mg/dL (0.2-1.3); Calcium 8.2 mg/dL (8.4-10.2); Creatinine 1 0.96 mg/dL (0.52-1.04); EST GLOMERULAR FILTRATION RATE 61.3 ML/MIN; Potassium 3.8 mmol/L (3.5-5.1); Total Protein 6.2 g/dL (6.3-8.2)
--- NOTE | 2023-12-27 07:21 | PCM.NOTE ---
Date and Time: 12/27/23716 Subjective Assessment: At chairside this afternoon with dressings off. Dopplers obtained. Physical Exam - Narrative Narrative Physical Exam: Podiatry Physical Exam Objective Data Vital Signs: Vital Signs - 24 hr Temp Pulse Resp BP Pulse Ox 12/27/23 04:00 98.1 F 68 18 124/63 95 12/26/23 23:48 97.8 F 74 18 131/59 99 12/26/23 20:00 98.2 F 62 17 129/61 98 12/26/23 16:00 97.2 F 67 15 121/58 98 12/26/23 12:00 96.9 F 73 28 H 108/49 95 12/26/23 08:00 97.0 F 62 18 114/56 96 Pain Assessment - Last Documented Pain Intensity 0 Intake and Output: Intake & Output 12/24/23 12/25/23 12/26/23 12/27/23 11:59 11:59 11:59 11:59 Intake Total 1000 2060 530 Output Total 1500 400 300 Balance -500 1660 230 Weight 118.8 kg 119 kg Lab Results: Lab Results-Last 24 Hours 12/24/23 12/26/23 12/26/23 Range/Units 16:20 08:11 08:11 WBC 5.0 (4.0-10.5) x10^3/uL RBC 3.15 L (4.1-5.4) x10^6/uL Hgb 9.7 L (12.0-16.0) g/dL Hct 30.2 L (35-47) % MCV 95.9 (78-100) fL MCH 30.8 (26-32) pg MCHC 32.1 (32-36) g/dL RDW 15.1 H (11.5-14.0) % Plt Count 162 (150-450) x10^3/uL MPV 10.6 (7.5-11.0) fL Gran % 50.9 (36.0-66.0) % Immature Gran % (Auto) 0.2 (0.00-0.4) % Nucleat RBC Rel Count 0.0 (0.00-0.1) % Eos # (Auto) 0.09 (0-0.5) x10^3/uL Immature Gran # (Auto) 0.01 (0.00-0.03) x10^3u/L Absolute Lymphs (auto) 1.84 (1.0-4.6) x10^3/uL Absolute Monos (auto) 0.51 (0.0-1.3) x10^3/uL Absolute Nucleated RBC 0.00 (0.00-0.01) x10^3u/L Lymphocytes % 36.6 (24.0-44.0) % Monocytes % 10.1 (0.0-12.0) % Eosinophils % 1.8 (0.00-5.0) % Basophils % 0.4 (0.0-0.4) % Absolute Granulocytes 2.56 (1.4-6.9) x10^3/uL Basophils # 0.02 (0-0.4) x10^3/uL Sodium 139 (135-145) mmol/L Potassium 3.8 (3.5-5.1) mmol/L Chloride 108 H (98-107) mmol/L Carbon Dioxide 26 (22-30) mmol/L Anion Gap 9.0 (5-15) MEQ/L BUN 20 H (7-17) mg/dL Creatinine 1.10 H (0.52-1.04) mg/dL Estimated GFR 52.1 ML/MIN Glucose 109 H (74-106) mg/dL POC Glucometer (74 to 106) mg/dL Calcium 8.3 L (8.4-10.2) mg/dL Total Bilirubin 0.70 (0.2-1.3) mg/dL AST 32 (14-36) U/L ALT 24 (0-35) U/L Alkaline Phosphatase 71 (38-126) U/L C-Reactive Prot, Quant 80 H (0-10) mg/L Serum Total Protein 6.4 (6.3-8.2) g/dL Albumin 2.9 L (3.5-5.0) g/dL 12/26/23 12/26/23 12/26/23 Range/Units 11:23 16:10 21:01 WBC (4.0-10.5) x10^3/uL RBC (4.1-5.4) x10^6/uL Hgb (12.0-16.0) g/dL Hct (35-47) % MCV (78-100) fL MCH (26-32) pg MCHC (32-36) g/dL RDW (11.5-14.0) % Plt Count (150-450) x10^3/uL MPV (7.5-11.0) fL Gran % (36.0-66.0) % Immature Gran % (Auto) (0.00-0.4) % Nucleat RBC Rel Count (0.00-0.1) % Eos # (Auto) (0-0.5) x10^3/uL Immature Gran # (Auto) (0.00-0.03) x10^3u/L Absolute Lymphs (auto) (1.0-4.6) x10^3/uL Absolute Monos (auto) (0.0-1.3) x10^3/uL Absolute Nucleated RBC (0.00-0.01) x10^3u/L Lymphocytes % (24.0-44.0) % Monocytes % (0.0-12.0) % Eosinophils % (0.00-5.0) % Basophils % (0.0-0.4) % Absolute Granulocytes (1.4-6.9) x10^3/uL Basophils # (0-0.4) x10^3/uL Sodium (135-145) mmol/L Potassium (3.5-5.1) mmol/L Chloride (98-107) mmol/L Carbon Dioxide (22-30) mmol/L Anion Gap (5-15) MEQ/L BUN (7-17) mg/dL Creatinine (0.52-1.04) mg/dL Estimated GFR ML/MIN Glucose (74-106) mg/dL POC Glucometer 236 H 109 H 147 H (74 to 106) mg/dL Calcium (8.4-10.2) mg/dL Total Bilirubin (0.2-1.3) mg/dL AST (14-36) U/L ALT (0-35) U/L Alkaline Phosphatase (38-126) U/L C-Reactive Prot, Quant (0-10) mg/L Serum Total Protein (6.3-8.2) g/dL Albumin (3.5-5.0) g/dL 12/27/23 12/27/23 12/27/23 Range/Units 04:18 04:18 07:01 WBC 4.6 (4.0-10.5) x10^3/uL RBC 3.10 L (4.1-5.4) x10^6/uL Hgb 9.7 L (12.0-16.0) g/dL Hct 29.5 L (35-47) % MCV 95.2 (78-100) fL MCH 31.3 (26-32) pg MCHC 32.9 (32-36) g/dL RDW 15.1 H (11.5-14.0) % Plt Count 175 (150-450) x10^3/uL MPV 10.3 (7.5-11.0) fL Gran % 46.0 (36.0-66.0) % Immature Gran % (Auto) 0.0 (0.00-0.4) % Nucleat RBC Rel Count 0.0 (0.00-0.1) % Eos # (Auto) 0.10 (0-0.5) x10^3/uL Immature Gran # (Auto) 0.00 (0.00-0.03) x10^3u/L Absolute Lymphs (auto) 1.87 (1.0-4.6) x10^3/uL Absolute Monos (auto) 0.47 (0.0-1.3) x10^3/uL Absolute Nucleated RBC 0.00 (0.00-0.01) x10^3u/L Lymphocytes % 40.8 (24.0-44.0) % Monocytes % 10.3 (0.0-12.0) % Eosinophils % 2.2 (0.00-5.0) % Basophils % 0.7 (0.0-0.4) % Absolute Granulocytes 2.11 (1.4-6.9) x10^3/uL Basophils # 0.03 (0-0.4) x10^3/uL Sodium 137 (135-145) mmol/L Potassium 3.8 (3.5-5.1) mmol/L Chloride 107 (98-107) mmol/L Carbon Dioxide 26 (22-30) mmol/L Anion Gap 7.1 (5-15) MEQ/L BUN 20 H (7-17) mg/dL Creatinine 0.96 (0.52-1.04) mg/dL Estimated GFR 61.3 ML/MIN Glucose 100 (74-106) mg/dL POC Glucometer TNP (74 to 106) mg/dL Calcium 8.2 L (8.4-10.2) mg/dL Total Bilirubin 0.70 (0.2-1.3) mg/dL AST 31 (14-36) U/L ALT 24 (0-35) U/L Alkaline Phosphatase 69 (38-126) U/L C-Reactive Prot, Quant (0-10) mg/L Serum Total Protein 6.2 L (6.3-8.2) g/dL Albumin 2.9 L (3.5-5.0) g/dL Radiology Exams: Radiology Procedures Category Date Time Status ARTERIAL BILAT LOWER EXTREMITY [US] Routine Exams 12/26/23 08:00 Completed VENOUS UNILAT/LIMITED EXTREMIT [US] Urgent Exams 12/26/23 09:54 Completed Multi-Disciplinary Progress Notes: Multi-Disciplinary Progress Notes 12/26/23 11:25 Pharmacy Note by Gaetano Holguin Please be aware of possible drug interaction with Merrem and Depakote. May decrease Depakote level. Patient is taking Depakote for headaches. Initialized on 12/26/23 11:25 - END OF NOTE 12/26/23 10:54 Case Management Note by Christelle Olmos S/[facility] AT [facility]- SHE REPORTS PATIENT CAN RETURN TO THEIR FACILITY WHENEVER MEDICALLY READY FOR DC. SHE WAS NOTIFIED OF CONCERNS OF HYGIENE NOTED IN PROGRESS NOTES. SHE IS ON LARGE AMOUNT OF DIURETICS AT HOME AND HAS BEEN INCONTINENT OF STOOL HERE. SHE NOTED CONCERNS AND WILL CHECK ON THIS AND SEE IF THERE IS ANYTHING ADDITIONAL THEY CAN DO TO KEEP WRAPS CLEAN AT FACILITY Initialized on 12/26/23 10:54 - END OF NOTE Assessment/Plan (1) Afib Current Visit: Yes Status: Acute Code(s): I48.91 - UNSPECIFIED ATRIAL FIBRILLATION (2) CAD (coronary artery disease) Current Visit: Yes Status: Acute Code(s): I25.10 - ATHSCL HEART DISEASE OF [place] CORONARY ARTERY W/O ANG PCTRS (3) CHF (congestive heart failure) Current Visit: Yes Status: Acute Code(s): I50.9 - HEART FAILURE, UNSPECIFIED (4) Cellulitis Current Visit: Yes Status: Acute Assessment & Plan: Bilateral chronic venous insufficency ulcers starting approximately 3 months ago per patient recollection Hx of subacute DVT to the RLE ultrasounds negative for DVT or critical obstructions to bilateral lower extremity. No increase leg pain or calf pain bilaterally Findings likely consistent with brawny edema with ulceration venous insufficiency ulceration with 2+ pitting edema on examination Wounds assessed ans do appears to be healing with compression therapy to the bilateral lower extremity Right: 2.0 x 1.9 x0.2 1.5 x 1.9 x 0.2 Left 1.9 x 1.b x 0.2 3.0 x 2.1 0.1 2.6 x 1.9 x 0.2 legs were aggressively cleansed with sterile saline following debridement. Iodine paint to legs adaptic cast padding, kerlix and coban was applied Multilayer compression dressing applied with moderate compression at this time. Vanncomycin/zosyn ordered- medicine managing for now Will follow with you. Code(s): L03.90 - CELLULITIS, UNSPECIFIED (5) Confusion Current Visit: Yes Status: Acute Code(s): R41.0 - DISORIENTATION, UNSPECIFIED (6) History of DVT (deep vein thrombosis) Current Visit: Yes Status: Acute Code(s): Z86.718 - PERSONAL HISTORY OF OTHER VENOUS THROMBOSIS AND EMBOLISM (7) Type 2 diabetes mellitus Current Visit: Yes Status: Acute (8) Ulcers of both lower extremities Current Visit: Yes Status: Acute Code(s): L97.919 - NON-PRS CHRONIC ULC UNSP PRT OF R LOW LEG W UNSP SEVERITY; L97.929 - NON-PRS CHRONIC ULC UNSP PRT OF L LOW LEG W UNSP SEVERITY (9) Bilateral lower leg cellulitis Current Visit: Yes Status: Chronic Code(s): L03.116 - CELLULITIS OF LEFT LO WER LIMB; L03.115 - CELLULITIS OF RIGHT LOWER LIMB (10) Ulcer of extremity due to chronic venous insufficiency Current Visit: No Status: Chronic Code(s): L98.499 - NON-PRESSURE CHRONIC ULCER OF SKIN OF SITES W UNSP SEVERITY; I87.2 - VENOUS INSUFFICIENCY (CHRONIC) (PERIPHERAL) (11) Wound of lower extremity Current Visit: No Status: Chronic Qualifiers: Encounter type: subsequent encounter Laterality: unspecified laterality Qualified Code(s): S81.809D - Unspecified open wound, unspecified lower leg, subsequent encounter Code(s): S81.809A - UNSPECIFIED OPEN WOUND, UNSPECIFIED LOWER LEG, INIT ENCNTR (12) AMS (altered mental status) Current Visit: No Status: Resolved Qualifiers: Altered mental status type: delirium Qualified Code(s): R41.0 - Disorientation, unspecified Code(s): R41.82 - ALTERED MENTAL STATUS, UNSPECIFIED
--- NOTE | 2023-12-27 11:17 | PCM.NOTE ---
Date and Time: 12/27/23 1112 Subjective Assessment: is a 78 year old female admitted with BLE venous insufficency ulceration with superimposed cellulitis after the patient was brought in to the ED from [facility] after staff noticed patient was experiencing confusion and increased purulent drainage from chronic BLE ulcers. Podiatry consulted with shahid ridement performed 12/25/23. Initial treament with vancomycin and zosyn - wound cultures showing proteus mirabilis/pseudomonas - abx changed to Merrem. Iodine paint to legs adaptic cast padding, kerlix and coban was applied. Multilayer compression dressing applied with light compression until results from doppler obtained due to h/o DVT. 12/25/23: Met with patient bedside. S/P debridement performed bedside 12/24/23 by podiatry. She is A&O x 4, afebrile overnight, and endorses that she is feeling much improved today. Labs and vitals are stable. Denies fever,cough, sob, cp, abdominal pain, LINARES, dizziness, N/V/D. Plan for continued abx - follow cultures. Arterial duplex Tues. 12/25: Patient up in chair and doing well. Does endorse pain to her RLE this morning. She feels her compression dressing may be too tight. Venous and Arterial dopplers pending. Discussed wound culture showing proteus mirabilis- ? ESBL, culture has been sent to reference lab for identification/sens. Abx changed to Merrem. Denies fever,cough, sob, cp, abdominal pain, LINARES, dizziness, N/V/D. 12/26: Patient doing well. No longer having pain to the RLE. BLE dressings changed yesterday, patient states she is more comfortable now, thinks they were too tight before. Venous/arterial dopplers negative. Wound cultures with proteus mirabillis/pseudomonas, final pending ref lab. Patient on day 2 of Merrem. Plan for return to nursing facility tomorrow. Midline to be placed today. - Review of Systems Constitutional: No Symptoms Eyes: No Symptoms Ears, Nose, & Throat: No Symptoms Respiratory: No Symptoms Cardiac: No Symptoms Abdominal/Gastrointestinal: No Symptoms Genitourinary Symptoms: No Symptoms Musculoskeletal: No Symptoms Skin: Cellulitis Neurological: No Symptoms Psychological: No Symptoms Endocrine: No Symptoms Hematologic/Lymphatic: No Symptoms Immunological/Allergic: No Symptoms Objective Exam General Appearance: no apparent distress Neurologic Exam: alert, oriented x 3, cooperative Skin Exam: other (BLE with compression dressings, erythema receeding marked borders) Wound Assessment: Skin/Wound Assessment Wound/Incision Assessment Start: 12/24/23 13:27 Text: Status: Active Freq: Q6H Protocol: Document 12/27/23 08:00 ERENDIRA (Rec: 12/27/23 08:49 ERENDIRA [id number]) Wound/Incision Assessment left anterior outer leg Wound Assessment Shift Assessment Wound Type Stasis Ulcer Dressing Status Dry & Intact Drainage Amount None Comment DRESSINGS INTACT PER PODIATRY, UNABLE TO ASSESS WOUND Right Lower Anterior Medial Wound Assessment Shift Assessment Wound Type Stasis Ulcer Dressing Status Dry & Intact Drainage Amount None Comment DRESSINGS INTACT PER PODIATRY, UNABLE TO ASSESS WOUND Left Lower Wound Assessment Shift Assessment Wound Type Stasis Ulcer Comment DRESSINGS INTACT PER PODIATRY, UNABLE TO ASSESS WOUND Left Upper Anterior Wound Assessment Shift Assessment Wound Type Stasis Ulcer Dressing Status Dry & Intact Drainage Amount None Comment DRESSINGS INTACT PER PODIATRY, UNABLE TO ASSESS WOUND Right Lower Anterior Wound Assessment Shift Assessment Wound Type Stasis Ulcer Dressing Status Dry & Intact Drainage Amount None Comment DRESSINGS INTACT PER PODIATRY, UNABLE TO ASSESS WOUND Eye Exam: PERRL Ears, Nose, Throat Exam: normal ENT inspection Neck Exam: normal inspection Respiratory Exam: normal breath sounds, lungs clear Cardiovascular Exam: regular rate/rhythm, normal heart sounds Gastrointestinal/Abdomen Exam: soft, normal bowel sounds Extremity Exam: inflammation, swelling, tenderness Back Exam: normal inspection Pelvic Exam: deferred Rectal Exam: deferred Objective Data Vital Signs: Vital Signs - 24 hr Temp Pulse Resp BP Pulse Ox 12/27/23 07:28 96.7 F 69 16 131/62 97 12/27/23 04:00 98.1 F 68 18 124/63 95 12/26/23 23:48 97.8 F 74 18 131/59 99 12/26/23 20:00 98.2 F 62 17 129/61 98 12/26/23 16:00 97.2 F 67 15 121/58 98 12/26/23 12:00 96.9 F 73 28 H 108/49 95 Pain Assessment - Last Documented Pain Intensity 0 Intake and Output: Intake & Output 12/24/23 12/25/23 12/26/23 12/27/23 11:59 11:59 11:59 11:59 Intake Total 1000 2060 1010 Output Total 1500 400 300 Balance -500 1660 710 Weight 118.8 kg 119 kg 119 kg Lab Results: Lab Results-Last 24 Hours 12/24/23 12/26/23 12/26/23 Range/Units 16:20 11:23 16:10 WBC (4.0-10.5) x10^3/uL RBC (4.1-5.4) x10^6/uL Hgb (12.0-16.0) g/dL Hct (35-47) % MCV (78-100) fL MCH (26-32) pg MCHC (32-36) g/dL RDW (11.5-14.0) % Plt Count (150-450) x10^3/uL MPV (7.5-11.0) fL Gran % (36.0-66.0) % Immature Gran % (Auto) (0.00-0.4) % Nucleat RBC Rel Count (0.00-0.1) % Eos # (Auto) (0-0.5) x10^3/uL Immature Gran # (Auto) (0.00-0.03) x10^3u/L Absolute Lymphs (auto) (1.0-4.6) x10^3/uL Absolute Monos (auto) (0.0-1.3) x10^3/uL Absolute Nucleated RBC (0.00-0.01) x10^3u/L Lymphocytes % (24.0-44.0) % Monocytes % (0.0-12.0) % Eosinophils % (0.00-5.0) % Basophils % (0.0-0.4) % Absolute Granulocytes (1.4-6.9) x10^3/uL Basophils # (0-0.4) x10^3/uL Sodium (135-145) mmol/L Potassium (3.5-5.1) mmol/L Chloride (98-107) mmol/L Carbon Dioxide (22-30) mmol/L Anion Gap (5-15) MEQ/L BUN (7-17) mg/dL Creatinine (0.52-1.04) mg/dL Estimated GFR ML/MIN Glucose (74-106) mg/dL POC Glucometer 236 H 109 H (74 to 106) mg/dL Calcium (8.4-10.2) mg/dL Total Bilirubin (0.2-1.3) mg/dL AST (14-36) U/L ALT (0-35) U/L Alkaline Phosphatase (38-126) U/L C-Reactive Prot, Quant 80 H (0-10) mg/L Serum Total Protein (6.3-8.2) g/dL Albumin (3.5-5.0) g/dL 12/26/23 12/27/23 12/27/23 Range/Units 21:01 04:18 04:18 WBC 4.6 (4.0-10.5) x10^3/uL RBC 3.10 L (4.1-5.4) x10^6/uL Hgb 9.7 L (12.0-16.0) g/dL Hct 29.5 L (35-47) % MCV 95.2 (78-100) fL MCH 31.3 (26-32) pg MCHC 32.9 (32-36) g/dL RDW 15.1 H (11.5-14.0) % Plt Count 175 (150-450) x10^3/uL MPV 10.3 (7.5-11.0) fL Gran % 46.0 (36.0-66.0) % Immature Gran % (Auto) 0.0 (0.00-0.4) % Nucleat RBC Rel Count 0.0 (0.00-0.1) % Eos # (Auto) 0.10 (0-0.5) x10^3/uL Immature Gran # (Auto) 0.00 (0.00-0.03) x10^3u/L Absolute Lymphs (auto) 1.87 (1.0-4.6) x10^3/uL Absolute Monos (auto) 0.47 (0.0-1.3) x10^3/uL Absolute Nucleated RBC 0.00 (0.00-0.01) x10^3u/L Lymphocytes % 40.8 (24.0-44.0) % Monocytes % 10.3 (0.0-12.0) % Eosinophils % 2.2 (0.00-5.0) % Basophils % 0.7 (0.0-0.4) % Absolute Granulocytes 2.11 (1.4-6.9) x10^3/uL Basophils # 0.03 (0-0.4) x10^3/uL Sodium 137 (135-145) mmol/L Potassium 3.8 (3.5-5.1) mmol/L Chloride 107 (98-107) mmol/L Carbon Dioxide 26 (22-30) mmol/L Anion Gap 7.1 (5-15) MEQ/L BUN 20 H (7-17) mg/dL Creatinine 0.96 (0.52-1.04) mg/dL Estimated GFR 61.3 ML/MIN Glucose 100 (74-106) mg/dL POC Glucometer 147 H (74 to 106) mg/dL Calcium 8.2 L (8.4-10.2) mg/dL Total Bilirubin 0.70 (0.2-1.3) mg/dL AST 31 (14-36) U/L ALT 24 (0-35) U/L Alkaline Phosphatase 69 (38-126) U/L C-Reactive Prot, Quant (0-10) mg/L Serum Total Protein 6.2 L (6.3-8.2) g/dL Albumin 2.9 L (3.5-5.0) g/dL 12/27/23 Range/Units 07:01 WBC (4.0-10.5) x10^3/uL RBC (4.1-5.4) x10^6/uL Hgb (12.0-16.0) g/dL Hct (35-47) % MCV (78-100) fL MCH (26-32) pg MCHC (32-36) g/dL RDW (11.5-14.0) % Plt Count (150-450) x10^3/uL MPV (7.5-11.0) fL Gran % (36.0-66.0) % Immature Gran % (Auto) (0.00-0.4) % Nucleat RBC Rel Count (0.00-0.1) % Eos # (Auto) (0-0.5) x10^3/uL Immature Gran # (Auto) (0.00-0.03) x10^3u/L Absolute Lymphs (auto) (1.0-4.6) x10^3/uL Absolute Monos (auto) (0.0-1.3) x10^3/uL Absolute Nucleated RBC (0.00-0.01) x10^3u/L Lymphocytes % (24.0-44.0) % Monocytes % (0.0-12.0) % Eosinophils % (0.00-5.0) % Basophils % (0.0-0.4) % Absolute Granulocytes (1.4-6.9) x10^3/uL Basophils # (0-0.4) x10^3/uL Sodium (135-145) mmol/L Potassium (3.5-5.1) mmol/L Chloride (98-107) mmol/L Carbon Dioxide (22-30) mmol/L Anion Gap (5-15) MEQ/L BUN (7-17) mg/dL Creatinine (0.52-1.04) mg/dL Estimated GFR ML/MIN Glucose (74-106) mg/dL POC Glucometer TNP (74 to 106) mg/dL Calcium (8.4-10.2) mg/dL Total Bilirubin (0.2-1.3) mg/dL AST (14-36) U/L ALT (0-35) U/L Alkaline Phosphatase (38-126) U/L C-Reactive Prot, Quant (0-10) mg/L Serum Total Protein (6.3-8.2) g/dL Albumin (3.5-5.0) g/dL Radiology Exams: Radiology Procedures Category Date Time Status ARTERIAL BILAT LOWER EXTREMITY [US] Routine Exams 12/26/23 08:00 Completed VENOUS UNILAT/LIMITED EXTREMIT [US] Urgent Exams 12/26/23 09:54 Completed Multi-Disciplinary Progress Notes: Multi-Disciplinary Progress Notes 12/27/23 10:36 Case Management Note by Christelle Olmos NO CHANGE IN DC PLANS- [facility] FOR DC ON 12/28/23. Initialized on 12/27/23 10:36 - END OF NOTE 12/27/23 09:38 OT Plan of Care Note by Lisa Martines OT Eval OT Inpatient Eval and POC Start: 12/24/23 14:42 Freq: ONCE Status: Active Protocol: Created 12/24/23 14:51 ED (Rec: 12/24/23 14:51 ED -[id number]) Document 12/26/23 16:31 KA (Rec: 12/26/23 16:32 KA [id number]) OT Evaluation Subjective MORAIMA IS AGREEABLE TO OT EVALUATION THIS DATE. SHE WAS ADMITTED DUE TO ALTERED MENTAL STATUS WITH BILATEARL LEG WOUND INFECTIONS. *CURRENTLY ON CONTACT PRECAUTIONS Pertinent Past Medical History TIA, DVT, ALEXEY, DEMENTIA, CHF, PACEMAKER (ARRHYTHMIAS), BARIATRIC SX, HTN, DMII, CROHNS DISEASE, NEUROPATHY Prior Level of Function MORAIMA RESIDES AT [facility] WHERE SHE RECEIVED NURSING CARE FOR BLE SWELLING (WRAPPING), ASSISTANCE WITH ALL ADLS ( DRESSING, BATHING, AND TOILETING), AND CGA/MIN ASSIST WITH FUNCTIONAL MOBILITY. SHE TYPICALLY UTILIZES W/C FOR ALL MOBILITY, AND MOD INDEPENDENT WITH FEEDING AND EATING. MORAIMA REPORTS THAT SHE IS ON A MECHANICAL SOFT DIET AT THE ECF AND HER MEDICATION IS CRUSHED. OT RELAYED THIS INFORMATION TO PROCESS IMPROVEMENT ENGINEER AT [facility] FOR A SCREEN. Equipment at Home Prior to Admission Walker,Wheelchair Home Setup Elevated Height Toilet,Grab Bar Date 12/26/23 Feeding WFL Grooming WFL Bathing Impaired Comment AT BASELINE SHE REQUIRES MOD TO MAX ASSIST Dressing Impaired Comment AT BASELINE: MIN ASSIST FOR UB , MAX ASSIST FOR LB Toileting Impaired Comment AT BASELINE: MIN ASSIST Bed Mobility WFL Comment AT BASELINE Toilet Transfers WFL Comment AT BASELINE: CGA Functional Transfers WFL Comment AT BASELINE, SBA WITH USE OF FWW. Range of Motion WFL Coordination WFL Functional Strength WFL (NEAR BASELINE) Functional Endurance TOLERATES FUNCTIONAL TRANSFERS AND MOBILITY IN ROOM, TOILET T/F (APPROXIMATLEY 5MINUTES OF MOBILITY AND ADLS) Cognition ALERT AND ORIENTED X 4 Pain 2/10 PAIN IN BILATERAL LEGS ( SHE REPORTS THAT IT IS RELATED TO THE DEBRIDEMENT) Objective Data/Standardized Assessment(s PATIENT PRESENTS NEAR BASELINE ) LEVEL IN REGARDS TO ADLS AND FUNCTIONAL TRANSFERS. OT Plan Of Care Date of Evaluation 12/26/23 Treatment Diagnosis AMS, BILATERAL LOWER LEG WOUND AND INFECTION Precaution/Orders as written CONTACT PRECAUTIONS Teaching Recipient Patient Patient is Aware of Diagnosis and Yes Prognosis Patient is receptive to Plan of Care and Yes contributory towards OT goals Discharge Recommendations/Plan NO FURTHER SKILLED OT INDICATED MORAIMA PRESENTS NEAR BASELINE; RECOMMEND TO RETURN TO ECF AT D/C. Initialized on 12/27/23 09:38 - END OF NOTE 12/26/23 11:25 Pharmacy Note by Gaetano Holguin Please be aware of possible drug interaction with Merrem and Depakote. May decrease Depakote level. Patient is taking Depakote for headaches. Initialized on 12/26/23 11:25 - END OF NOTE Assessment/Plan (1) Bilateral lower leg cellulitis Current Visit: Yes Status: Chronic Assessment & Plan: - CT imaging of the right and left lower extremities with findings of diffuse left leg skin thickening with subcutaneous edema along all its aspects, Likely infective / inflammatory disease process, and diffuse right leg skin thickening with subcutaneous edema along all its aspects -Podiatry consulted for possible debridement/Unna boots, appreciate recs -Vanc/Rocephin in ED, will continue Vanc/zosyn - follow culture -LA WNL -ESR, CRP -Elevate BLE -Cliff borders -Unable to obtain MRI due to pacemaker -arterial duplex when available 12/24: -Continue vanc/zosyn - follow cultures -art duplex pending -podiatry note reviewed, appreciate recs, agree with plan -Lasix 40mg IV QD 12/25: -culture showing proteus mirabillis, sent to reference lab for ID, abx changed to Merrem -Podiatry following with dressing changes -Art/venous dopplers pending 12/26: -Art/venous dopplers negative -Wound cultures taken in ED 12/23 positive for pseudomonas -continue Merrem for 5 days -Midline -plan for discharge tomorrow Code(s): L03.116 - CELLULITIS OF LEFT LOWER LIMB; L03.115 - CELLULITIS OF RIGHT LOWER LIMB (2) Ulcers of both lower extremities Current Visit: Yes Status: Acute Assessment & Plan: -see cellulitis -Plan for podiatry consult for possible debridement/ vanc/zosyn 12/24: -s/p debridement per podiatry 12/24/23 - note reviewed -Iodine paint to legs adaptic cast padding, kerlix and coban was applied Multilayer compression dressing applied with light compression until results from doppler obtained -wound therapy/ID/Podiatry follow up post d/c 12/25: -wound culture with proteus mirabillis, see above, plan to change abx to Merrem -Dopplers Art/venous pending 12/26: -See above Code(s): L97.919 - NON-PRS CHRONIC ULC UNSP PRT OF R LOW LEG W UNSP SEVERITY; L97.929 - NON-PRS CHRONIC ULC UNSP PRT OF L LOW LEG W UNSP SEVERITY (3) Confusion Current Visit: Yes Status: Acute Assessment & Plan: -CT head with no definite evidence of territorial infarctions - family states patient is at baseline-Has h/o TIA and dementia- most likely secondary to infection -consider neuro consult if no improvement -unable to obtain MRI due to pacemaker -BG levels WNL -TSH level WNL 12/24: -Pt at baseline today Code(s): R41.0 - DISORIENTATION, UNSPECIFIED #ELIS -Mild- baseline around 0.8-1, patient at 1.10 -improved from admission -monitor renal/lytes daily -Avoid nephrotoxic agents such as ANABEL/ARB/NSAIDS 12/26: -Resolved #Hypokalemia -mild at 3.4, will replenish per protocol -Tele -monitor renal/lytes daiy 12/25: -resolved (4) Microcytic anemia Current Visit: Yes Status: Acute Assessment & Plan: -at baseline, will continue to monitor, transfusion if hgb <7 -add iron panel 12/24: -Hgb 9.5, iron sat at 9%, continue iron supplementation Code(s): D50.9 - IRON DEFICIENCY ANEMIA, UNSPECIFIED (5) Type 2 diabetes mellitus Current Visit: Yes Status: Acute Assessment & Plan: -ADA mechanical soft diet -SSI /glargine -A1c 12/25: -change to moderate SSI (6) CHF (congestive heart failure) Current Visit: Yes Status: Acute Assessment & Plan: -No recent ECHO on file -BNP elevated at 754 -EKG - Sinus Rhythm, Right [place] Deviation, Right Bundle Branch Block, Non- specific ST Changes, Other /Trops wnl x 2 -CXR pending -Patient follows with Dr. More, will attempt to obtain records 12/24: -CXR with no acute findings Code(s): I50.9 - HEART FAILURE, UNSPECIFIED (7) History of DVT (deep vein thrombosis) Current Visit: Yes Status: Acute Assessment & Plan: -Per family h/o RLE DVT continue home xarelto Code(s): Z86.718 - PERSONAL HISTORY OF OTHER VENOUS THROMBOSIS AND EMBOLISM (8) ALEXEY (obstructive sleep apnea) Current Visit: Yes Status: Acute Assessment & Plan: -CPAP Code(s): G47.33 - OBSTRUCTIVE SLEEP APNEA (ADULT) (PEDIATRIC) (9) Hypothyroid Current Visit: Yes Status: Acute Assessment & Plan: -continue levothyroxine Code(s): E03.9 - HYPOTHYROIDISM, UNSPECIFIED (10) Neuropathy Current Visit: Yes Status: Acute Assessment & Plan: -continue home meds Code(s): G62.9 - POLYNEUROPATHY, UNSPECIFIED (11) Afib Current Visit: Yes Status: Acute Assessment & Plan: -continue metoprolol/xarelto -Pacemaker Code(s): I48.91 - UNSPECIFIED ATRIAL FIBRILLATION (12) CAD (coronary artery disease) Current Visit: Yes Status: Acute Assessment & Plan: -with stent placement -continue home meds VTE: Xarelto PPI: Protonix Next of Kin: Lilly card - [phone] Code(s): L03.116 - CELLULITIS OF LEFT LOWER LIMB; L03.115 - CELLULITIS OF RIGHT LOWER LIMB Code(s): L03.116 - CELLULITIS OF LEFT LOWER LIMB; L03.115 - CELLULITIS OF RIGHT LOWER LIMB (2) ELIS (acute kidney injury) Current Visit: Yes Status: Acute Code(s): N17.9 - ACUTE KIDNEY FAILURE, UNSPECIFIED (3) Ulcers of both lower extremities Current Visit: Yes Status: Acute Code(s): L97.919 - NON-PRS CHRONIC ULC UNSP PRT OF R LOW LEG W UNSP SEVERITY; L97.929 - NON-PRS CHRONIC ULC UNSP PRT OF L LOW LEG W UNSP SEVERITY (4) Hypokalemia Current Visit: Yes Status: Acute Code(s): E87.6 - HYPOKALEMIA (5) Confusion Current Visit: Yes Status: Acute Code(s): R41.0 - DISORIENTATION, UNSPECIF IED (6) Microcytic anemia Current Visit: Yes Status: Acute Code(s): D50.9 - IRON DEFICIENCY ANEMIA, UNSPECIFIED (7) Type 2 diabetes mellitus Current Visit: Yes Status: Acute (8) CHF (congestive heart failure) Current Visit: Yes Status: Acute Code(s): I50.9 - HEART FAILURE, UNSPECIFIED (9) History of DVT (deep vein thrombosis) Current Visit: Yes Status: Acute Code(s): Z86.718 - PERSONAL HISTORY OF OTHER VENOUS THROMBOSIS AND EMBOLISM (10) ALEXEY (obstructive sleep apnea) Current Visit: Yes Status: Acute Code(s): G47.33 - OBSTRUCTIVE SLEEP APNEA (ADULT) (PEDIATRIC) (11) Hypothyroid Current Visit: Yes Status: Acute Code(s): E03.9 - HYPOTHYROIDISM, U NSPECIFIED (12) Neuropathy Current Visit: Yes Status: Acute Code(s): G62.9 - POLYNEUROPATHY, UNSPECIFIED (13) Afib Current Visit: Yes Status: Acute Code(s): I48.91 - UNSPECIFIED ATRIAL FIBRILLATION (14) CAD (coronary artery disease) Current Visit: Yes Status: Acute Code(s): I25.10 - ATHSCL HEART DISEASE OF [place] CORONARY ARTERY W/O ANG PCTRS
[2023-12-28] MEDS ORDERED: NORCO 5/325 MG ONE (01:01)
[2023-12-28 04:32] LABS: Absolute Neutrophil Ct (ANC) 2.14 x10^3/uL (1.4-6.9); BASOPHIL % 0.4 % (0.0-0.4); Basophil (Absolute #) 0.02 x10^3/uL (0-0.4); Eosinophil % 1.9 % (0.00-5.0); Eosinophil (Absolute #) 0.09 x10^3/uL (0-0.5); Hematocrit 29.5 % (35-47); Hemoglobin 9.7 g/dL (12.0-16.0); IMMATURE GRAN # 0.01 x10^3u/L (0.00-0.03); IMMATURE GRAN % 0.2 % (0.00-0.4); Lymphocytes % 43.4 % (24.0-44.0); Mean Cell Volume 93.9 fL (78-100); Mean Corpuscular Hemoglobin 30.9 pg (26-32); Mean Corpuscular Hgb Concent. 32.9 g/dL (32-36); Mean Platelet Volume 10.3 fL (7.5-11.0); Monocyte (Absolute #) 0.48 x10^3/uL (0.0-1.3); Monocytes % 9.9 % (0.0-12.0); Neutrophil % 44.2 % (36.0-66.0); Platelet Count 222 x10^3/uL (150-450); Red Blood Count 3.14 x10^6/uL (4.1-5.4); Red Cell Distribution Width 15.1 % (11.5-14.0); White Blood Count 4.8 x10^3/uL (4.0-10.5)
[2023-12-28 05:10] VITALS: O2SAT 96
[2023-12-28 05:26] LABS: ALBUMIN 2.8 g/dL (3.5-5.0); BILIRUBIN,TOTAL 0.5 mg/dL (0.2-1.3); Calcium 8.2 mg/dL (8.4-10.2); Creatinine 1 1.01 mg/dL (0.52-1.04); EST GLOMERULAR FILTRATION RATE 57.7 ML/MIN; Potassium 3.9 mmol/L (3.5-5.1); Total Protein 6.2 g/dL (6.3-8.2)
--- NOTE | 2023-12-28 07:22 | PCM.DS ---
Discharge Summary Date of Admission: 12/25/23 08:16 Date of Discharge: 12/28/23 Admitting Physician: ЕКАТЕРИНА ABRAMS MD Consults: Consults on Case 12/24/23 14:42 Consult Podiatry ROUTINE Primary Care Provider: [facility] Allergies Allergies oxycodone Allergy (Severe, Verified 12/24/23 07:56) Itching Hospital Summary - Hospital Course Hospital Course: is a 78 year old female admitted with BLE venous insufficency ulceration with superimposed cellulitis after the patient was brought in to the ED from [facility] after staff noticed patient was experiencing confusion and increased purulent drainage from chronic BLE ulcers. Podiatry consulted with debridement performed 12/25/23. Initial treament with vancomycin and zosyn - wound cultures showing proteus mirabilis/pseudomonas - abx changed to Merrem. Iodine paint to legs adaptic cast padding, kerlix and coban was applied. Multilayer compression dressing applied with light compression. Arterial/venous dopplers unremarkable. ELIS resolved. Labs and vitals stable. Patient to continue Merrem at the nursing facility. Midline placed. Podiatry following for wound care. ID to follow as OP. Patient stable for discharge today. Discharge Note New Diagnosis: cellulitis New Medications: Merrem x 5 days Follow Up: PCP/Podiatry/ID Results pending: final wound culture Outpatient testing to order: Latest Assessment & Plan - CT imaging of the right and left lower extremities with findings of diffuse left leg skin thickening with subcutaneous edema along all its aspects, Likely infective / inflammatory disease process, and diffuse right leg skin thickening with subcutaneous edema along all its aspects -Podiatry consulted for possible debridement/Unna boots, appreciate recs -Vanc/Rocephin in ED, will continue Vanc/zosyn - follow culture -LA WNL -ESR, CRP -Elevate BLE -Cliff borders -Unable to obtain MRI due to pacemaker -arterial duplex when available 12/24: -Continue vanc/zosyn - follow cultures -art duplex pending -podiatry note reviewed, appreciate recs, agree with plan -Lasix 40mg IV QD 12/25: -culture showing proteus mirabillis, sent to reference lab for ID, abx changed to Merrem -Podiatry following with dressing changes -Art/venous dopplers pending 12/26: -Art/venous dopplers negative -Wound cultures taken in ED 12/23 positive for pseudomonas -continue Merrem for 5 days -Midline -plan for discharge tomorrow Code(s): L03.116 - CELLULITIS OF LEFT LOWER LIMB; L03.115 - CELLULITIS OF RIGHT LOWER LIMB (2) Ulcers of both lower extremities Current Visit: Yes Status: Acute Assessment & Plan: -see cellulitis -Plan for podiatry consult for possible debridement/ vanc/zosyn 12/24: -s/p debridement per podiatry 12/24/23 - note reviewed -Iodine paint to legs a daptic cast padding, kerlix and coban was applied Multilayer compression dressing applied with light compression until results from doppler obtained -wound therapy/ID/Podiatry follow up post d/c 12/25: -wound culture with proteus mirabillis, see above, plan to change abx to Merrem -Dopplers Art/venous pending 12/26: -See above Code(s): L97.919 - NON-PRS CHRONIC ULC UNSP PRT OF R LOW LEG W UNSP SEVERITY; L97.929 - NON-PRS CHRONIC ULC UNSP PRT OF L LOW LEG W UNSP SEVERITY (3) Confusion Current Visit: Yes Status: Acute Assessment & Plan: -CT head with no definite evidence of territorial infarctions - family states patient is at baseline-Has h/o TIA and dementia- most likely secondary to infection -consider neuro consult if no improvement -unable to obtain MRI due to pacemaker -BG levels WNL -TSH level WNL 12/24: -Pt at baseline today Code(s): R41.0 - DISORIENTATION, UNSPECIFIED #ELIS -Mild- baseline around 0.8-1, patient at 1.10 -improved from admission -monitor renal/lytes daily -Avoid nephrotoxic agents such as ANABEL/ARB/NSAIDS 12/26: -Resolved #Hypokalemia -mild at 3.4, will replenish per protocol -Tele -monitor renal/lytes daiy 12/25: -resolved (4) Microcytic anemia Current Visit: Yes Status: Acute Assessment & Plan: -at baseline, will continue to monitor, transfusion if hgb <7 -add iron panel 12/24: -Hgb 9.5, iron sat at 9%, continue iron supplementation Code(s): D50.9 - IRON DEFICIENCY ANEMIA, UNSPECIFIED (5) Type 2 diabetes mellitus Current Visit: Yes Status: Acute Assessment & Plan: -ADA mechanical soft diet -SSI /glargine -A1c 12/25: -change to moderate SSI (6) CHF (congestive heart failure) Current Visit: Yes Status: Acute Assessment & Plan: -No recent ECHO on file -BNP elevated at 754 -EKG - Sinus Rhythm, Right Umbarger Deviation, Right Bundle Branch Block, Non- specific ST Changes, Other /Trops wnl x 2 -CXR pending -Patient follows with Dr. More, will attempt to obtain records 12/24: -CXR with no acute findings Code(s): I50.9 - HEART FAILURE, UNSPECIFIED (7) History of DVT (deep vein thrombosis) Current Visit: Yes Status: Acute Assessment & Plan: -Per family h/o RLE DVT continue home xarelto Code(s): Z86.718 - PERSONAL HISTORY OF OTHER VENOUS THROMBOSIS AND EMBOLISM (8) ALEXEY (obstructive sleep apnea) Current Visit: Yes Status: Acute Assessment & Plan: -CPAP Code(s): G47.33 - OBSTRUCTIVE SLEEP APNEA (ADULT) (PEDIATRIC) (9) Hypothyroid Current Visit: Yes Status: Acute Assessment & Plan: -continue levothyroxine Code(s): E03.9 - HYPOTHYROIDISM, UNSPECIFIED (10) Neuropathy Current Visit: Yes Status: Acute Assessment & Plan: -continue home meds Code(s): G62.9 - POLYNEUROPATHY, UNSPECIFIED (11) Afib Current Visit: Yes Status: Acute Assessment & Plan: -continue metoprolol/xarelto -Pacemaker Code(s): I48.91 - UNSPECIFIED ATRIAL FIBRILLATION (12) CAD (coronary artery disease) Current Visit: Yes Status: Acute Assessment & Plan: -with stent placement -continue home meds I spent 35 minutes [id number] with the patient on the day of discharge performing discharge exam, discussing hospital stay and discharge instructions with patient and caregivers, preparation of discharge records, prescriptions & referral forms and addressing any questions/concerns the patient had as documented above. - Vitals & Intake/Output Vital Signs: Vital Signs Temperature 98.2 F 12/28/23 04:00 Pulse Rate 65 12/28/23 04:00 Respiratory Rate 20 12/28/23 04:00 Blood Pressure 115/57 12/28/23 04:00 O2 Sat by Pulse Oximetry 96 12/28/23 04:00 Intake & Output: Intake & Output 12/25/23 12/26/23 12/27/23 12/28/23 11:59 11:59 11:59 11:59 Intake Total 1000 2060 1010 1080 Output Total 1500 400 300 Balance -500 8704 356 3403 Weight 119 kg 119 kg - Lab Result Diagrams: 12/28/23 04:10 12/28/23 04:10 Lab Results-Last 24 Hrs: Lab Results-Last 24 Hours 12/27/23 12/27/23 12/27/23 Range/Units 11:32 16:16 21:19 WBC (4.0-10.5) x10^3/uL RBC (4.1-5.4) x10^6/uL Hgb (12.0-16.0) g/dL Hct (35-47) % MCV (78-100) fL MCH (26-32) pg MCHC (32-36) g/dL RDW (11.5-14.0) % Plt Count (150-450) x10^3/uL MPV (7.5-11.0) fL Gran % (36.0-66.0) % Immature Gran % (Auto) (0.00-0.4) % Nucleat RBC Rel Count (0.00-0.1) % Eos # (Auto) (0-0.5) x10^3/uL Immature Gran # (Auto) (0.00-0.03) x10^3u/L Absolute Lymphs (auto) (1.0-4.6) x10^3/uL Absolute Monos (auto) (0.0-1.3) x10^3/uL Absolute Nucleated RBC (0.00-0.01) x10^3u/L Lymphocytes % (24.0-44.0) % Monocytes % (0.0-12.0) % Eosinophils % (0.00-5.0) % Basophils % (0.0-0.4) % Absolute Granulocytes (1.4-6.9) x10^3/uL Basophils # (0-0.4) x10^3/uL Sodium (135-145) mmol/L Potassium (3.5-5.1) mmol/L Chloride (98-107) mmol/L Carbon Dioxide (22-30) mmol/L Anion Gap (5-15) MEQ/L BUN (7-17) mg/dL Creatinine (0.52-1.04) mg/dL Estimated GFR ML/MIN Glucose (74-106) mg/dL POC Glucometer 151 H 157 H 207 H (74 to 106) mg/dL Calcium (8.4-10.2) mg/dL Total Bilirubin (0.2-1.3) mg/dL AST (14-36) U/L ALT (0-35) U/L Alkaline Phosphatase (38-126) U/L Serum Total Protein (6.3-8.2) g/dL Albumin (3.5-5.0) g/dL 12/28/23 12/28/23 12/28/23 Range/Units 04:10 04:10 07:03 WBC 4.8 (4.0-10.5) x10^3/uL RBC 3.14 L (4.1-5.4) x10^6/uL Hgb 9.7 L (12.0-16.0) g/dL Hct 29.5 L (35-47) % MCV 93.9 (78-100) fL MCH 30.9 (26-32) pg MCHC 32.9 (32-36) g/dL RDW 15.1 H (11.5-14.0) % Plt Count 222 (150-450) x10^3/uL MPV 10.3 (7.5-11.0) fL Gran % 44.2 (36.0-66.0) % Immature Gran % (Auto) 0.2 (0.00-0.4) % Nucleat RBC Rel Count 0.0 (0.00-0.1) % Eos # (Auto) 0.09 (0-0.5) x10^3/uL Immature Gran # (Auto) 0.01 (0.00-0.03) x10^3u/L Absolute Lymphs (auto) 2.10 (1.0-4.6) x10^3/uL Absolute Monos (auto) 0.48 (0.0-1.3) x10^3/uL Absolute Nucleated RBC 0.00 (0.00-0.01) x10^3u/L Lymphocytes % 43.4 (24.0-44.0) % Monocytes % 9.9 (0.0-12.0) % Eosinophils % 1.9 (0.00-5.0) % Basophils % 0.4 (0.0-0.4) % Absolute Granulocytes 2.14 (1.4-6.9) x10^3/uL Basophils # 0.02 (0-0.4) x10^3/uL Sodium 140 (135-145) mmol/L Potassium 3.9 (3.5-5.1) mmol/L Chloride 108 H (98-107) mmol/L Carbon Dioxide 28 (22-30) mmol/L Anion Gap 8.0 (5-15) MEQ/L BUN 22 H (7-17) mg/dL Creatinine 1.01 (0.52-1.04) mg/dL Estimated GFR 57.7 ML/MIN Glucose 125 H (74-106) mg/dL POC Glucometer 165 H (74 to 106) mg/dL Calcium 8.2 L (8.4-10.2) mg/dL Total Bilirubin 0.50 (0.2-1.3) mg/dL AST 31 (14-36) U/L ALT 26 (0-35) U/L Alkaline Phosphatase 72 (38-126) U/L Serum Total Protein 6.2 L (6.3-8.2) g/dL Albumin 2.8 L (3.5-5.0) g/dL Micro Results-Entire Visit: Microbiology 12/24/23 09:12 Wound Culture - Final Soft Tissue Pseudomonas Aeruginosa 12/24/23 13:50 Aerobic Organism ID Result 1 - Final Leg - Right Lower Not Reportable Aerobic Organism ID Result 2 - Final Not Reportable Aerobic Organism ID Result 3 - Final Not Reportable Aerobic Organism ID Result 4 - Final Not Reportable Aerobic Bacterial Sensitivity - Final Not Reportable 12/24/23 Unknown Urine Culture - Final Urine, Catheterized <10K NORMAL SKIN MARK PROBABLE SKIN CONTAMINANT 12/24/23 14:16 Wound Culture - Preliminary Leg - Left Lower SENT TO REFERENCE LAB FOR IDENTIFICATION AND/OR SENSITIVITY. SEPARATE REPORT TO FOLLOW. 12/24/23 13:50 Wound Culture - Preliminary Leg - Right Lower SENT TO REFERENCE LAB FOR IDENTIFICATION AND/OR SENSITIVITY. SEPARATE REPORT TO FOLLOW. 12/24/23 08:30 Blood Culture - Preliminary Blood Accuchecks Date 12/27/23 Date 12/27/23 Date 12/27/23 Date 12/27/23 Time 21:25 - Radiology Exams Ordered Rad Exams-Entire Visit: Radiology Procedures Category Date Time Status ARTERIAL BILAT LOWER EXTREMITY [US] Routine Exams 12/26/23 08:00 Completed VENOUS UNILAT/LIMITED EXTREMIT [US] Urgent Exams 12/26/23 09:54 Completed - Procedures and Test Procedures and Tests throughout Hospitalization: Therapy Orders & Screens 12/24/23 14:42 PT Eval & Treat (MD Order) ONCE Reason for Eval:: weakness Diagnosis: altered mental status with bilateral leg wound infections Respiratory Therapy Consult ONCE Comment: Reason For Exam: Diagnosis: altered mental status with bilateral leg wound infections OT Eval and Treat (MD Order) ONCE Comment: Physician Instructions: Reason For Exam: Diagnosis: altered mental status with bilateral leg wound infections Discharge Exam General Appearance: no apparent distress Neurologic Exam: alert, oriented x 3, cooperative Eye Exam: PERRL Ears, Nose, Throat Exam: normal ENT inspection Neck Exam: normal inspection Respiratory Exam: normal breath sounds, lungs clear Cardiovascular Exam: regular rate/rhythm, normal heart sounds Gastrointestinal/Abdomen Exam: soft, normal bowel sounds Pelvic Exam: deferred Rectal Exam: deferred Back Exam: normal inspection Extremity Exam: other (BLE with compression dressings see wound assessment) Wound Assessment: Skin/Wound Assessment Wound/Incision Assessment Start: 12/24/23 13:27 Text: Status: Active Freq: Q6H Protocol: Document 12/28/23 02:00 MP (Rec: 12/28/23 02:32 MP [id number]) Wound/Incision Assessment left anterior outer leg Wound Assessment Shift Assessment Wound Type Stasis Ulcer Dressing Status Dry & Intact Drainage Amount None Comment DRESSINGS INTACT PER PODIATRY, UNABLE TO ASSESS WOUND Right Lower Anterior Medial Wound Assessment Shift Assessment Wound Type Stasis Ulcer Dressing Status Dry & Intact Drainage Amount None Comment DRESSINGS INTACT PER PODIATRY, UNABLE TO ASSESS WOUND Left Lower Wound Assessment Shift Assessment Wound Type Stasis Ulcer Comment DRESSINGS INTACT PER PODIATRY, UNABLE TO ASSESS WOUND Left Upper Anterior Wound Assessment Shift Assessment Wound Type Stasis Ulcer Dressing Status Dry & Intact Drainage Amount None Comment DRESSINGS INTACT PER PODIATRY, UNABLE TO ASSESS WOUND Right Lower Anterior Wound Assessment Shift Assessment Wound Type Stasis Ulcer Dressing Status Dry & Intact Drainage Amount None Comment DRESSINGS INTACT PER PODIATRY, UNABLE TO ASSESS WOUND Wound Photo Photo Taken Yes Comment: in chart Final Diagnosis/Problem List - Final Discharge Diagnosis/Problem (1) Bilateral lower leg cellulitis Current Visit: Yes Status: Chronic Code(s): L03.116 - CELLULITIS OF LEFT LOWER LIMB; L03.115 - CELLULITIS OF RIGHT LOWER LIMB (2) ELIS (acute kidney injury) Current Visit: Yes Status: Resolved Code(s): N17.9 - ACUTE KIDNEY FAILURE, UNSPECIFIED (3) Ulcers of both lower extremities Current Visit: Yes Status: Chronic Code(s): L97.919 - NON-PRS CHRONIC ULC UNSP PRT OF R LOW LEG W UNSP SEVERITY; L97.929 - NON-PRS CHRONIC ULC UNSP PRT OF L LOW LEG W UNSP SEVERITY (4) Hypokalemia Current Visit: Yes Status: Resolved Code(s): E87.6 - HYPOKALEMIA (5) Confusion Current Visit: Yes Status: Acute Code(s): R41.0 - DISORIENTATION, UNSPECIFIED (6) Microcytic anemia Current Visit: Yes Status: Chronic Code(s): D50.9 - IRON DEFICIENCY ANEMIA, UNSPECIFIED (7) Type 2 diabetes mellitus Current Visit: Yes Status: Chronic (8) CHF (congestive heart failure) Current Visit: Yes Status: Chronic Code(s): I50.9 - HEART FAILURE, UNSPECIFIED (9) History of DVT (deep vein thrombosis) Current Visit: Yes Status: Chronic Code(s): Z86.718 - PERSONAL HISTORY OF OTHER VENOUS THROMBOSIS AND EMBOLISM (10) ALEXEY (obstructive sleep apnea) Current Visit: Yes Status: Chronic Code(s): G47.33 - OBSTRUCTIVE SLEEP APNEA (ADULT) (PEDIATRIC) (11) Hypothyroid Current Visit: Yes Status: Chronic Code(s): E03.9 - HYPOTHYROIDISM, UNSPECIFIED (12) Neuropathy Current Visit: Yes Status: Chronic Code(s): G62.9 - POLYNEUROPATHY, UNSPECIFIED (13) Afib Current Visit: Yes Status: Chronic Code(s): I48.91 - UNSPECIFIED ATRIAL FIBRILLATION (14) CAD (coronary artery disease) Current Visit: Yes Status: Chronic Code(s): I25.10 - ATHSCL HEART DISEASE OF [place] CORONARY ARTERY W/O ANG PCTRS - Discharge Disposition: Skilled Care @ [facility] Condition: Good Prescriptions: New Meropenem [Merrem] 1 gm IV Q12HT Continue Aspirin EC 81 mg [Ecotrin 81 mg] 81 mg PO DAILY Metoprolol Tartrate 25 mg PO BID Furosemide 60 mg PO DAILY Atorvastatin Calcium 80 mg PO QHS Duloxetine HCl 30 mg PO DAILY Rivaroxaban [Xarelto] 15 mg PO DAILY Pramipexole Di-HCl [Pramipexole Dihydrochloride] 1 mg PO TID Melatonin 3 mg PO QHS Pregabalin 50 mg [Lyrica 50MG] 50 mg PO TID Loperamide HCl 2 mg [Imodium 2 mg] 2 mg PO Q6H PRN PRN PRN Reason: Diarrhea Insulin Glargine,Hum.rec.anlog [Lantus] 12 unit SQ QHS Amitriptyline HCl 10 mg [Elavil 10 mg] 10 mg PO HS Allopurinol 100 mg [Zyloprim 100 mg] 100 mg PO DAILY Bisacodyl 10 mg [Dulcolax 10 MG SUPP] 10 mg RC DAILY PRN PRN Reason: Constipation Calcium Carb/Vitamin D3/Vit K2 [Calcium Plus Menaq7 Adult Tab] 1 ea PO DAILY Cholecalciferol (Vitamin D3) [Thera-D] 100 mcg PO DAILY Divalproex Sodium ER 250 mg [Depakote EXTENDED RELEASE 250 MG] 750 mg PO DAILY Duloxetine HCl 30 mg [Cymbalta 30 MG Capsule] 60 mg PO DAILY Exenatide Microspheres [Bydureon Bcise] 2 mg SQ UD Ferrous Sulfate 325 mg [Feosol 325 mg] 750 mg PO DAILY Lanolin Alcohol/Mo/W.pet/[place] [Eucerin Cream] 1 ea DAILY Levothyroxine Sodium 25 mcg PO DAILY Lubiprostone 8 mcg PO BID Ubidecarenone/Vit E Acet [Co Q-10 100 mg Softgel] 1 ea DAILY Multivitamin [Multi-Vitamin Daily] 1 each PO DAILY Mirabegron [Myrbetriq] 25 mg PO DAILY Hydrophilic Cream [Triad] 71 gm TP BID Furosemide 40 mg PO EVENING MEAL Sodium Phosphate,[place]-Dibasic [Fleet Enema] 133 ml RC DAILY PRN PRN PRN Reason: Constipation Mineral Oil/I-Prop Myr/Water [Eucerin Lotion (HYDROCERIN)] 240 ml TP DAILY Lipase/Protease/Amylase [Elvis [place]illo 24,000 Unit Capsule] 1 cap PO TIDWMEALS Acetaminophen 325 mg [Tylenol 325 mg] 650 mg PO Q6H PRN PRN PRN Reason: Pain Nystatin Powder 15 gm [Nystop Powder 15 gm] 15 gm TP Q12H PRN PRN PRN Reason: Itching Additional Instructions: CUSTODIAL ORDERS: RESUME PREVIOUS ORDERS ROUTINE MIDLINE CARE SEE DRESSING CHANGE INSTRUCTIONS BELOW: dressings to bilateral legs to be changed by [facility] staff every other day as follows. Apply iodine generously to IVANNA lower legs. Apply adaptic and sterile 4x4 gauze to all open wounds. Apply unna boots, fan-folded, to ivanna lower legs to level of tibial tuberosity. Wrap with kerlix and coban with moderate (50%) compression to same level. -Merrem to continue through 12-31-23, will need follow up with Dr. Kingston Follow up with: KRIS LOOMIS DPM [[facility] STAFF] - 01/04/24 9:30 am () [facility] [Primary Care Provider] - ESTHELA KINGSTON [NON-STAFF PHY W/O PRIVILEGES] - 1 Week
[2023-12-28 07:33] VITALS: BP 123/56; RESP 16
[2023-12-28 12:01] VITALS: PULSE 69; TEMP 97.6
--- NOTE | 2023-12-29 10:58 | PCM.NOTE ---
Date and Time: 12/29/23 1056 Subjective Assessment: d/c today states read to go home Physical Exam - Narrative Narrative Physical Exam: Podiatry Physical Exam Objective Data Vital Signs: Vital Signs - 24 hr Temp Pulse Resp Pulse Ox 12/28/23 12:00 97.6 F 69 16 96 Pain Assessment - Last Documented Pain Intensity 0 Intake and Output: Intake & Output 12/26/23 12/27/23 12/28/23 12/29/23 11:59 11:59 11:59 11:59 Intake Total 2060 1010 1200 240 Output Total 400 300 Balance 7939 453 0863 240 Weight 119 kg Lab Results: Lab Results-Last 24 Hours 12/28/23 Range/Units 11:14 POC Glucometer 158 H (74 to 106) mg/dL Multi-Disciplinary Progress Notes: Multi-Disciplinary Progress Notes 12/28/23 15:00 Case Management Note by Christelle Olmos MIDLINE INFORMATION [facility] TO [email or web address] Initialized on 12/28/23 15:00 - END OF NOTE Assessment/Plan (1) Afib Status: Chronic Assessment & Plan: Bilateral chronic venous insufficency ulcers starting approximately 3 months ago per patient recollection Hx of subacute DVT to the RLE ultrasounds negative for DVT or critical obstructions to bilateral lower extremity. No increase leg pain or calf pain bilaterally Findings likely consistent with brawny edema with ulceration venous insufficiency ulceration with 2+ pitting edema on examination Wounds assessed and do appears to be healing with compression therapy to the bilateral lower extremity Right: 2.0 x 1.9 x0.2 1.5 x 1.9 x 0.2 Left 1.9 x 1.b x 0.2 3.0 x 2.1 0.1 2.6 x 1.9 x 0.2 legs were aggressively cleansed with sterile saline following debridement. Iodine paint to legs adaptic cast padding, kerlix and coban was applied Multilayer compression dressing applied with moderate compression at this time. Vanncomycin/zosyn ordered- medicine managing for now Will follow with you. Code(s): I48.91 - UNSPECIFIED ATRIAL FIBRILLATION (2) CAD (coronary artery disease) Status: Chronic Code(s): I25.10 - ATHSCL HEART DISEASE OF [place] CORONARY ARTERY W/O ANG PCTRS (3) CHF (congestive heart failure) Status: Chronic Code(s): I50.9 - HEART FAILURE, UNSPECIFIED (4) Cellulitis Status: Acute Code(s): L03.90 - CELLULITIS, UNSPECIFIED (5) Confusion Status: Acute Code(s): R41.0 - DISORIENTATION, UNSPECIFIED (6) History of DVT (deep vein thrombosis) Status: Chronic Code(s): Z86.718 - PERSONAL HISTORY OF OTHER VENOUS THROMBOSIS AND EMBOLISM (7) Type 2 diabetes mellitus Status: Chronic (8) Ulcers of both lower extremities Status: Chronic Code(s): L97.919 - NON-PRS CHRONIC ULC UNSP PRT OF R LOW LEG W UNSP SEVERITY; L97.929 - NON-PRS CHRONIC ULC UNSP PRT OF L LOW LEG W UNSP SEVERITY (9) Bilateral lower leg cellulitis Status: Chronic Code(s): L03.116 - CELLULITIS OF LEFT LOWER LIMB; L03.115 - CELLULITIS OF RIGHT LOWER LIMB (10) Ulcer of extremity due to chronic venous insufficiency Status: Chronic Code(s): L98.499 - NON-PRESSURE CHRONIC ULCER OF SKIN OF SITES W UNSP SEVERITY; I87.2 - VENOUS INSUFFICIENCY (CHRONIC) (PERIPHERAL) (11) Wound of lower extremity Status: Chronic Qualifiers: Encounter type: subsequent encounter Laterality: unspecified laterality Qualified Code(s): S81.809D - Unspecified open wound, unspecified lower leg, subsequent encounter Code(s): S81.809A - UNSPECIFIED OPEN WOUND, UNSPECIFIED LOWER LEG, INIT ENCNTR (12) AMS (altered mental status) Status: Resolved Qualifiers: Altered mental status type: delirium Qualified Code(s): R41.0 - Disorientation, unspecified Code(s): R41.82 - ALTERED MENTAL STATUS, UNSPECIFIED
== END 2023-12-28 14:30 | DRG 603 ==
LOC: ED 07:54 → MED SURG 12:48 → OBSVTOIN 12-25 08:16
PROVIDERS: ADMIT Internal Medicine; ATTEND Internal Medicine
DX: L03.116 Cellulitis of left lower limb (principal); L97.919 Non-pressure chronic ulcer of unspecified part of right lower leg with unspecified severity; L97.929 Non-pressure chronic ulcer of unspecified part of left lower leg with unspecified severity; N17.9 Acute kidney failure, unspecified; L03.115 Cellulitis of right lower limb; R41.0 Disorientation, unspecified; E87.6 Hypokalemia; D50.9 Iron deficiency anemia, unspecified; E11.9 Type 2 diabetes mellitus without complications; I11.0 Hypertensive heart disease with heart failure; I50.9 Heart failure, unspecified; Z86.718 Personal history of other venous thrombosis and embolism; G47.33 Obstructive sleep apnea (adult) (pediatric); E03.9 Hypothyroidism, unspecified; G62.9 Polyneuropathy, unspecified; I48.91 Unspecified atrial fibrillation; I25.10 Atherosclerotic heart disease of native coronary artery without angina pectoris; Z79.899 Other long term (current) drug therapy; Z79.01 Long term (current) use of anticoagulants; Z86.14 Personal history of Methicillin resistant Staphylococcus aureus infection
CPT/HCPCS: 0241U; 11042; 11045; 29580; 36410; 36415; 51702; 70450; 71045; 73700; 80053; 81001; 82607; 82728; 82746; 82947; 83540; 83550; 83605; 83880; 84132; 84134; 84439; 84443; 84484; 85025; 85652; 86140; 87040; 87070; 87077; 87086; 87186; 93005; 93268; 93925; 93971; 96365; 96366; 96374; 97110; 97161; 97165; 99222; 99285; 99291; G0378; Q3014; 99232; J0696; J1817; J1940; A9270-GY; J3370

== ENCOUNTER 2024-04-20 04:34 | Inpatient (IN) | payer MEDICARE, OTHER ==
--- NOTE | 2024-04-20 04:39 | ERPHSYRPT ---
- History of Present Illness Time Seen by Provider: 04/20/24 04:37 Source: patient, EMS, old records Exam Limitations: no limitations Physician History: This is a morbidly obese 78-year-old white female patient was brought to the emergency department by the paramedics secondary to hypotension, tachycardia and fever. Patient is a resident of the [facility]. They were doing their bed checks and patient stated he did not feel well. She denies chest pain. She denies cough. She denies shortness of breath. She was found to have low blood pressure, tachycardia and low-grade fever. This patient has a history of seizure disorder, chronic anemia, hypertension, hyperlipidemia and insulin- dependent diabetes. Timing/Duration: today Severity: mild (Moderate) Associated Symptoms: fever, weakness, No shortness of breath, No chest pain Allergies/Adverse Reactions: oxycodone Allergy (Severe, Verified 12/24/23 07:56) Itching Home Medications: Aspirin EC 81 mg [Ecotrin 81 mg] 81 mg PO DAILY 04/17/22 [History] Atorvastatin Calcium 80 mg PO QHS 04/17/22 [History] Duloxetine HCl 30 mg PO DAILY 04/17/22 [History] Furosemide 60 mg PO DAILY 04/17/22 [History] Metoprolol Tartrate 25 mg PO BID 04/17/22 [History] Pramipexole Di-HCl [Pramipexole Dihydrochloride] 1 mg PO TID 04/17/22 [History] Rivaroxaban [Xarelto] 15 mg PO DAILY 04/17/22 [History] Insulin Glargine,Hum.rec.anlog [Lantus] 12 unit SQ QHS 05/26/23 [History] Loperamide HCl 2 mg [Imodium 2 mg] 2 mg PO Q6H PRN PRN 05/26/23 [History] Melatonin 3 mg PO QHS 05/26/23 [History] Pregabalin 50 mg [Lyrica 50MG] 50 mg PO TID 05/26/23 [History] Allopurinol 100 mg [Zyloprim 100 mg] 100 mg PO DAILY 06/24/23 [History] Amitriptyline HCl 10 mg [Elavil 10 mg] 10 mg PO HS 06/24/23 [History] Acetaminophen 325 mg [Tylenol 325 mg] 650 mg PO Q6H PRN PRN 12/24/23 [History] Bisacodyl 10 mg [Dulcolax 10 MG SUPP] 10 mg RC DAILY PRN 12/24/23 [ History] Calcium Carb/Vitamin D3/Vit K2 [Calcium Plus Menaq7 Adult Tab] 1 ea PO DAILY 12/24/23 [History] Cholecalciferol (Vitamin D3) [Thera-D] 100 mcg PO DAILY 12/24/23 [History] Divalproex Sodium ER 250 mg [Depakote EXTENDED RELEASE 250 MG] 750 mg PO DAILY 12/24/23 [History] Duloxetine HCl 30 mg [Cymbalta 30 MG Capsule] 60 mg PO DAILY 12/24/23 [History] Exenatide Microspheres [Bydureon Bcise] 2 mg SQ UD 12/24/23 [History] Ferrous Sulfate 325 mg [Feosol 325 mg] 750 mg PO DAILY 12/24/23 [History] Furosemide 40 mg PO EVENING MEAL 12/24/23 [History] Hydrophilic Cream [Triad] 71 gm TP BID 12/24/23 [History] Lanolin Alcohol/Mo/W.pet/[place] [Eucerin Cream] 1 ea DAILY 12/24/23 [History] Levothyroxine Sodium 25 mcg PO DAILY 12/24/23 [History] Lipase/Protease/Amylase [Elvis Dr 24,000 Unit Capsule] 1 cap PO TIDWMEALS 12/24/23 [History] Lubiprostone 8 mcg PO BID 12/24/23 [History] Mineral Oil/I-Prop Myr/Water [Eucerin Lotion (HYDROCERIN)] 240 ml TP DAILY 12/24/23 [History] Mirabegron [Myrbetriq] 25 mg PO DAILY 12/24/23 [History] Multivitamin [Multi-Vitamin Daily] 1 each PO DAILY 12/24/23 [History] Nystatin Powder 15 gm [Nystop Powder 15 gm] 15 gm TP Q12H PRN PRN 12/24/23 [History] Sodium Phosphate,[place]-Dibasic [Fleet Enema] 133 ml RC DAILY PRN PRN 12/24/23 [History] Ubidecarenone/Vit E Acet [Co Q-10 100 mg Softgel] 1 ea DAILY 12/24/23 [History] Hx Tetanus, Diphtheria Vaccination/Date Given: No Hx Influenza Vaccination/Date Given: Yes Hx Pneumococcal Vaccination/Date Given: No Travel Risk - International Travel Have you traveled outside of the country in past 3 weeks: No - Emerging Infectious Disease Are you exhibiting symptoms associated with any current EIDs: Yes Symptoms: Fever - Review of Systems Constitutional: Fever, Malaise (Generalized) Eyes: No Symptoms Ears, Nose, & Throat: No Symptoms Respiratory: No Symptoms Cardiac: No Symptoms, No Chest Pain Abdominal/Gastrointestinal: No Symptoms Genitourinary Symptoms: No Symptoms Musculoskeletal: No Symptoms Skin: No Symptoms Neurological: No Symptoms Psychological: No Symptoms Endocrine: No Symptoms Hematologic/Lymphatic: No Symptoms Immunological/Allergic: No Symptoms All Other Systems: Reviewed and Negative - Past Medical History Pertinent Past Medical History: Yes Neurological History: Migraines, TIA, Other ENT History: No Pertinent History Cardiac History: High Cholesterol, Hypertension, Other Respiratory History: No Pertinent History Endocrine Medical History: Diabetes Type II Musculoskeletal History: No Pertinent History, Degenerative Disk Disease GI Medical History: Crohns Disease, Irritable Bowel History: No Pertinent History Psycho-Social History: No Pertinent History Female Reproductive Disorders: No Pertinent History Other Medical History: NEUROPATHY - Past Surgical History Past Surgical History: Yes Neuro Surgical History: No Pertinent History Cardiac: Pacemaker Respiratory: No Pertinent History Gastrointestinal: Appendectomy, Cholecystectomy Genitourinary: No Pertinent History Musculoskeletal: Joint Replacement, Orthopedic Surgery Female Surgical History: No Pertinent History Other Surgical History: BARIATRIC SURG,CARPAL TUNNEL - Social History Smoking Status: Never smoker Exposure to second hand smoke: No Drug Use: none Patient Lives Alone: No - Social Determinants of Health Will the patient participate in the screening: Unable to obtain - Nursing Vital Signs Nursing Vital Signs: Initial Vital Signs Temperature 100.1 F 04/20/24 04:34 Pain Scale Pain Intensity 0 - Physical Exam General Appearance: no apparent distress, alert, anxiety, obese Eye Exam: PERRL/EOMI, eyes nml inspection Ears, Nose, Throat Exam: normal ENT inspection, moist mucous membranes Neck Exam: normal inspection, non-tender, supple, full range of motion Respiratory Exam: normal breath sounds, lungs clear, airway intact, No chest tenderness, No respiratory distress Cardiovascular Exam: tachycardia Gastrointestinal/Abdomen Exam: soft, normal bowel sounds, No tenderness Pelvic Exam: not done Rectal Exam: not done Back Exam: normal inspection, normal range of motion, No CVA tenderness, No vertebral tenderness Extremity Exam: normal range of motion, other (Bilateral below the knee Unna boots) Neurologic Exam: alert, oriented x 3, cooperative, special services agent II-XII nml as tested, sensation nml Skin Exam: normal color, warm, dry Lymphatic Exam: No adenopathy SpO2 Interpretation: normal O2 Delivery: Room Air - Course Nursing assessment & vital signs reviewed: Yes Ordered Tests: Active Orders 24 hr Category Date Time Status Outsole Scheduler STAT Care 04/20/24 04:40 Active Cath for Specimen-Straight STAT Care 04/20/24 04:40 Active IV Insertion STAT Care 04/20/24 04:39 Active Pulse Oximetry (ED) STAT Care 04/20/24 04:39 Active CHEST 1 VIEW (PORTABLE) Stat Exams 04/20/24 04:40 Completed BLOOD CULTURE Stat Lab 04/20/24 05:10 Received CBC W DIFF Stat Lab 04/20/24 05:10 Completed CMP Stat Lab 04/20/24 05:10 Completed CULTURE,URINE Stat Lab 04/20/24 04:40 Received Lactic Acid Stat Lab 04/20/24 05:50 Completed MONO SCREEN Stat Lab 04/20/24 05:10 Completed UA W/RFX UR CULTURE Stat Lab 04/20/24 04:40 Completed Medication Summary Generic Name Dose Route Start Last Admin Trade Name Freq PRN Reason Stop Dose Admin Sodium Chloride 1,000 mls @ 100 mls/hr 04/20/24 04:45 04/20/24 06:57 Sodium Chloride 0.9% 1000 Ml IV 05/20/24 04:44 999 mls/hr .Q10H CORNELIA Infusion Norepinephrine/Dextrose 8 mg in 250 mls @ 15 mls/hr 04/20/24 06:38 04/20/24 06:43 Norepinephrine 8 Mg/250 Ml-D5w IV 05/20/24 06:37 8 mcg/min .[id number] PRN 15 mls/hr HYPOTENSION Administration Protocol 8 MCG/MIN Discontinued Medications Generic Name Dose Route Start Last Admin Trade Name Freq PRN Reason Stop Dose Admin Acetaminophen 650 mg 04/20/24 04:39 04/20/24 04:50 Acetaminophen 325 Mg Tablet PO 04/20/24 04:40 650 mg STAT STA Administration Acetaminophen Confirm 04/20/24 04:47 Acetaminophen 325 Mg Tablet Administered 04/20/24 04:48 Dose 650 mg .ROUTE .STK-MED ONE Piperacillin Sod/Tazobactam 100 mls @ 200 mls/hr 04/20/24 05:48 04/20/24 06:18 Sod 4.5 gm/ Sodium Chloride IV 04/20/24 06:17 200 mls/hr STAT ONE Administration Sodium Chloride Confirm 04/20/24 06:18 Sodium Chloride 100ml Mini-Bag Plus Administered 04/20/24 06:19 Dose 100 mls @ ud IV .STK-MED ONE Ondansetron HCl 4 mg 04/20/24 04:39 04/20/24 04:50 Ondansetron Hcl 4 Mg/2 Ml Vial IV 04/20/24 04:40 4 mg STAT STA Administration Ondansetron HCl Confirm 04/20/24 04:47 Ondansetron Hcl 4 Mg/2 Ml Vial Administered 04/20/24 04:48 Dose 4 mg .ROUTE .STK-MED ONE Piperacillin Sod/Tazobactam Sod Confirm 04/20/24 06:17 Piperacillin/Tazobactam Sodium 4.5 Gm Vial Administered 04/20/24 06:18 Dose 4.5 gm IV .STK-MED ONE Lab/Rad Data: Laboratory Result Diagrams 04/20/24 05:10 04/20/24 05:10 Laboratory Results 04/20/24 04/20/24 04/20/24 Range/Units 05:50 05:10 05:10 WBC (3.98-10.04) x10^3/uL RBC (3.93-5.22) x10^6/uL Hgb (11.2-15.7) g/dL Hct (34.1-44.9) % MCV (79.4-94.8) fL MCH (25.6-32.2) pg MCHC (32.2-35.5) g/dL RDW (11.7-14.4) % Plt Count (182-369) x10^3/uL MPV (9.4-12.3) fL Gran % (34.0-71.1) % Immature Gran % (Auto) (0.001-0.429) % Nucleat RBC Rel Count (0.00-0.2) % Eos # (Auto) (0.04-0.36) x10^3/uL Immature Gran # (Auto) (0.001-0.031) x10^3u/L Absolute Lymphs (auto) (1.18-3.74) x10^3/uL Absolute Monos (auto) (0.24-0.86) x10^3/uL Absolute Nucleated RBC (0.00-0.012) x10^3u/L Lymphocytes % (19.3-51.7) % Monocytes % (4.7-12.5) % Eosinophils % (0.7-5.8) % Basophils % (0.1-1.2) % Absolute Granulocytes (1.56-6.13) x10^3/uL Basophils # (0.01-0.08) x10^3/uL Sodium (135-145) mmol/L Potassium (3.5-5.1) mmol/L Chloride (98-107) mmol/L Carbon Dioxide (22-30) mmol/L Anion Gap (5-15) MEQ/L BUN (7-17) mg/dL Creatinine (0.52-1.04) mg/dL Estimated GFR ML/MIN Glucose (74-106) mg/dL Lactic Acid 1.5 (0.4-2.0) Calcium (8.4-10.2) mg/dL Total Bilirubin (0.2-1.3) mg/dL AST (14-36) U/L ALT (0-35) U/L Alkaline Phosphatase (38-126) U/L Serum Total Protein (6.3-8.2) g/dL Albumin (3.5-5.0) g/dL Urine Color (Yellow) Urine Appearance (Clear) Urine pH (4.6-8.0) Ur Specific [place] (1.005-1.030) Urine Protein (Negative) Urine Glucose (UA) (Negative) mg/dL Urine Ketones (Negative) Urine Blood (Negative) Urine Nitrite (Negative) Urine Bilirubin (Negative) Urine Urobilinogen (0.2) mg/dL Ur Leukocyte Esterase (Negative) U Hyaline Cast (Auto) (0-2) /LPF Urine Microscopic RBC (0-5) /HPF Urine Microscopic WBC (0-5) /HPF Ur Epithelial Cells (None Seen) /HPF Urine Bacteria (None Seen) /HPF Urine Culture Reflexed (NO) Valproic Acid 28.9 L (50-100) ug/mL Monoscreen (NEGATIVE) Influenza Type A Ag NEGATIVE (NEGATIVE) Influenza Type B Ag NEGATIVE (NEGATIVE) RSV (PCR) NEGATIVE (NEGATIVE) SARS-CoV-2 (PCR) NEGATIVE (NEGATIVE) Group A Strep Antibody (NEGATIVE) 04/20/24 04/20/24 04/20/24 Range/Units 05:10 05:10 05:10 WBC (3.98-10.04) x10^3/uL RBC (3.93-5.22) x10^6/uL Hgb (11.2-15.7) g/dL Hct (34.1-44.9) % MCV (79.4-94.8) fL MCH (25.6-32.2) pg MCHC (32.2-35.5) g/dL RDW (11.7-14.4) % Plt Count (182-369) x10^3/uL MPV (9.4-12.3) fL Gran % (34.0-71.1) % Immature Gran % (Auto) (0.001-0.429) % Nucleat RBC Rel Count (0.00-0.2) % Eos # (Auto) (0.04-0.36) x10^3/uL Immature Gran # (Auto) (0.001-0.031) x10^3u/L Absolute Lymphs (auto) (1.18-3.74) x10^3/uL Absolute Monos (auto) (0.24-0.86) x10^3/uL Absolute Nucleated RBC (0.00-0.012) x10^3u/L Lymphocytes % (19.3-51.7) % Monocytes % (4.7-12.5) % Eosinophils % (0.7-5.8) % Basophils % (0.1-1.2) % Absolute Granulocytes (1.56-6.13) x10^3/uL Basophils # (0.01-0.08) x10^3/uL Sodium 138 (135-145) mmol/L Potassium 3.7 (3.5-5.1) mmol/L Chloride 103 (98-107) mmol/L Carbon Dioxide 28 (22-30) mmol/L Anion Gap 9.5 (5-15) MEQ/L BUN 27 H (7-17) mg/dL Creatinine 1.12 H (0.52-1.04) mg/dL Estimated GFR 51.0 ML/MIN Glucose 133 H (74-106) mg/dL Lactic Acid (0.4-2.0) Calcium 8.2 L (8.4-10.2) mg/dL Total Bilirubin 1.30 (0.2-1.3) mg/dL AST 87 H (14-36) U/L ALT 70 H (0-35) U/L Alkaline Phosphatase 83 (38-126) U/L Serum Total Protein 6.1 L (6.3-8.2) g/dL Albumin 3.0 L (3.5-5.0) g/dL Urine Color (Yellow) Urine Appearance (Clear) Urine pH (4.6-8.0) Ur Specific [place] (1.005-1.030) Urine Protein (Negative) Urine Glucose (UA) (Negative) mg/dL Urine Ketones (Negative) Urine Blood (Negative) Urine Nitrite (Negative) Urine Bilirubin (Negative) Urine Urobilinogen (0.2) mg/dL Ur Leukocyte Esterase (Negative) U Hyaline Cast (Auto) (0-2) /LPF Urine Microscopic RBC (0-5) /HPF Urine Microscopic WBC (0-5) /HPF Ur Epithelial Cells (None Seen) /HPF Urine Bacteria (None Seen) /HPF Urine Culture Reflexed (NO) Valproic Acid (50-100) ug/mL Monoscreen NEGATIVE (NEGATIVE) Influenza Type A Ag (NEGATIVE) Influenza Type B Ag (NEGATIVE) RSV (PCR) (NEGATIVE) SARS-CoV-2 (PCR) (NEGATIVE) Group A Strep Antibody NOT DETECTED (NEGATIVE) 04/20/24 04/20/24 Range/Units 05:10 04:40 WBC 10.5 H (3.98-10.04) x10^3/uL RBC 3.24 L (3.93-5.22) x10^6/uL Hgb 10.3 L (11.2-15.7) g/dL Hct 31.4 L (34.1-44.9) % MCV 96.9 H (79.4-94.8) fL MCH 31.8 (25.6-32.2) pg MCHC 32.8 (32.2-35.5) g/dL RDW 15.0 H (11.7-14.4) % Plt Count 156 L (182-369) x10^3/uL MPV 10.3 (9.4-12.3) fL Gran % 72.9 H (34.0-71.1) % Immature Gran % (Auto) 0.3 (0.001-0.429) % Nucleat RBC Rel Count 0.0 (0.00-0.2) % Eos # (Auto) 0.01 L (0.04-0.36) x10^3/uL Immature Gran # (Auto) 0.03 (0.001-0.031) x10^3u/L Absolute Lymphs (auto) 1.75 (1.18-3.74) x10^3/uL Absolute Monos (auto) 1.03 H (0.24-0.86) x10^3/uL Absolute Nucleated RBC 0.00 (0.00-0.012) x10^3u/L Lymphocytes % 16.6 L (19.3-51.7) % Monocytes % 9.8 (4.7-12.5) % Eosinophils % 0.1 L (0.7-5.8) % Basophils % 0.3 (0.1-1.2) % Absolute Granulocytes 7.69 H (1.56-6.13) x10^3/uL Basophils # 0.03 (0.01-0.08) x10^3/uL Sodium (135-145) mmol/L Potassium (3.5-5.1) mmol/L Chloride (98-107) mmol/L Carbon Dioxide (22-30) mmol/L Anion Gap (5-15) MEQ/L BUN (7-17) mg/dL Creatinine (0.52-1.04) mg/dL Estimated GFR ML/MIN Glucose (74-106) mg/dL Lactic Acid (0.4-2.0) Calcium (8.4-10.2) mg/dL Total Bilirubin (0.2-1.3) mg/dL AST (14-36) U/L ALT (0-35) U/L Alkaline Phosphatase (38-126) U/L Serum Total Protein (6.3-8.2) g/dL Albumin (3.5-5.0) g/dL Urine Color Yellow (Yellow) Urine Appearance Turbid A (Clear) Urine pH 5.5 (4.6-8.0) Ur Specific [place] 1.015 (1.005-1.030) Urine Protein 100 A (Negative) Urine Glucose (UA) Negative (Negative) mg/dL Urine Ketones Negative (Negative) Urine Blood Large A (Negative) Urine Nitrite Negative (Negative) Urine Bilirubin Negative (Negative) Urine Urobilinogen 1.0 A (0.2) mg/dL Ur Leukocyte Esterase Large A (Negative) U Hyaline Cast (Auto) NONE SEEN (0-2) /LPF Urine Microscopic RBC 11-20 A (0-5) /HPF Urine Microscopic WBC >100 A (0-5) /HPF Ur Epithelial Cells None Seen (None Seen) /HPF Urine Bacteria Many A (None Seen) /HPF Urine Culture Reflexed ORDERED SEPARATELY (NO) Valproic Acid (50-100) ug/mL Monoscreen (NEGATIVE) Influenza Type A Ag (NEGATIVE) Influenza Type B Ag (NEGATIVE) RSV (PCR) (NEGATIVE) SARS-CoV-2 (PCR) (NEGATIVE) Group A Strep Antibody (NEGATIVE) - Progress Progress: improved Progress Note: 04/20/24 04:59 My medical decision making of the assignment of moderate complexity to this patient's medical issue today is based on review of the patient's past medical history, review of the patient's medication list, reviewed patient drug allergy list, history present illness and physical findings on examination. The workup in this patient includes placement of intravenous line, infusion of normal saline solution, urinalysis, CBC, CMP, blood culture, chest x-ray, lactic acid level, viral swabs, group A strep, monotest. Differential diagnosis includes but is not limited to urinary tract infection, viral infection, pneumonia 04/20/24 06:46 I interpreted the patient's laboratory data results. The patient has a normal lactic acid level, normal anion gap, normal CO2 with mildly elevated white count and left shift. She also has a very significant urinary tract infection. This is likely the source of the patient's hypotension, tachycardia and fever. Chest x-ray was interpreted by the radiologist and I reviewed the impression. The impression states nonacute chest with chronic features. 04/20/24 07:[address] Moralez, the telehospitalist on-call at this time. I reviewed the patient history, presenting complaint, workup performed and the results as well as my management. We discussed the mean arterial pressure this patient and the fact the patient is hypotensive and has urosepsis. We will be bolusing the remainder of this current bag of normal saline solution. We will have the patient on low-dose Levophed and admit her to the intensive care unit. We will continue Zosyn intravenously and continue normal saline at 125 mL/h. Counseled pt/family regarding: lab results, diagnosis, rad results Medical Desision Making - Independent Historian Additional History obtained from: [employer] Technical Architect/EMT - Diagnostic Testing Diagnostic test were ordered, analyzed, and reviewed by me: Yes Radiological Interpretation: Reviewed by me, Teleradiologist Report - Risk of complications The pt has a high risk of morbidity or mortality based on: Decision regarding hospitilization or escalation of hosp level of care - Departure Departure Disposition: Observation Clinical Impression: UTI (urinary tract infection), Hypotension Condition: Fair Critical Care Time: Yes Critical Care Time(excluding separately billable procedures): Critical 30-74 mins (45 minutes) Referrals: ENVIVE,ENVIVE [Primary Care Provider] - Follow up/PCP as directed
[2024-04-20] MEDS ORDERED: TYLENOL 325 MG ONE (04:47)
[2024-04-20] MEDS ORDERED: Zofran 4 MG/2 ML VIAL ONE (04:47)
[2024-04-20] MEDS: Zofran 4 MG/2 ML VIAL IV STA (04:50)
[2024-04-20] MEDS: TYLENOL 325 MG PO STA (04:50)
[2024-04-20] MEDS: Sodium Chloride 0.9% 1000 ML 1,000 ML IV SCH ×2 (04:51→20:26)
[2024-04-20 05:16] LABS: Absolute Neutrophil Ct (ANC) 7.69 x10^3/uL (1.56-6.13); BASOPHIL % 0.3 % (0.1-1.2); Basophil (Absolute #) 0.03 x10^3/uL (0.01-0.08); Eosinophil % 0.1 % (0.7-5.8); Eosinophil (Absolute #) 0.01 x10^3/uL (0.04-0.36); Hematocrit 31.4 % (34.1-44.9); Hemoglobin 10.3 g/dL (11.2-15.7); IMMATURE GRAN # 0.03 x10^3u/L (0.001-0.031); IMMATURE GRAN % 0.3 % (0.001-0.429); Lymphocyte (Absolute #) 1.75 x10^3/uL (1.18-3.74); Lymphocytes % 16.6 % (19.3-51.7); Mean Cell Volume 96.9 fL (79.4-94.8); Mean Corpuscular Hemoglobin 31.8 pg (25.6-32.2); Mean Corpuscular Hgb Concent. 32.8 g/dL (32.2-35.5); Mean Platelet Volume 10.3 fL (9.4-12.3); Monocyte (Absolute #) 1.03 x10^3/uL (0.24-0.86); Monocytes % 9.8 % (4.7-12.5); Neutrophil % 72.9 % (34.0-71.1); Platelet Count 156 x10^3/uL (182-369); Red Blood Count 3.24 x10^6/uL (3.93-5.22); White Blood Count 10.5 x10^3/uL (3.98-10.04)
[2024-04-20 05:29] LABS: ANION GAP 9.5 MEQ/L (5-15); BILIRUBIN,TOTAL 1.3 mg/dL (0.2-1.3); Calcium 8.2 mg/dL (8.4-10.2); Creatinine 1 1.12 mg/dL (0.52-1.04); Potassium 3.7 mmol/L (3.5-5.1); Total Protein 6.1 g/dL (6.3-8.2)
[2024-04-20 05:31] LABS: Appearance Turbid (Clear); Bacteria Many /HPF (None Seen); Bilirubin Negative (Negative); Blood Large (Negative); Epithelial Cells None Seen /HPF (None Seen); Glucose, Urine Negative (Negative); Hyaline Casts NONE SEEN /LPF (0-2); Ketones Negative (Negative); Leukocyte Esterase Large (Negative); Nitrite Negative (Negative); Ph 5.5 (4.6-8.0); Protein,Urine Dip 100 (Negative); Specific Gravity 1.015 (1.005-1.030); WBC >100 /HPF (0-5)
--- NOTE | 2024-04-20 05:48 | XRAY ---
Indication: Fever. Comparison: December 24, 2023 Portable chest remains inflated and clear. Heart not enlarged again with incidental left hilar calcified nodes and left pacemaker. Bony thorax intact again with osteopenia and moderate degenerative changes. Impression: Continued nonacute chest with chronic features.
[2024-04-20 05:56] LABS: INFLUENZA A NEGATIVE (NEGATIVE); INFLUENZA B NEGATIVE (NEGATIVE); RESPIRATORY SYNCTIAL VIRUS NEGATIVE (NEGATIVE); SARS-CoV-2 Xpert Express NEGATIVE (NEGATIVE)
[2024-04-20] MEDS ORDERED: PIPERACILLIN/TAZOBACTAM IV ONE (06:17)
[2024-04-20] MEDS: PIPERACILLIN/TAZOBACTAM 4.5 GM in Sodium Chloride 100ML MINI-BAG PLUS 100 ML IV ONE (06:18)
[2024-04-20] MEDS ORDERED: Sodium Chloride 100ML MINI-BAG PLUS 100 ML IV ONE (06:18)
[2024-04-20] MEDS: NOREPINEPHRINE 8 MG/250 ML-D5W 8 MG/250 ML PLAST..BAG IV PRN (06:43)
--- NOTE | 2024-04-20 08:03 | PCM.HP ---
<FELICITA VERDE - Last Filed: 04/20/24 10:42> History of Present Illness - Chief Complaint Chief Complaint: hypotension/tachy/fever Date: 04/20/24 History of Present Illness: is a 78 year old female with pmhx of migraines, TIA, HLD, CHF, CAD, anemia, HTN, AFIB, DMII, crohns, and DDD presented to ED 04/20/24 from [facility] with complaints of generalized weakness and fever. Patient reports symptoms started this morning. Patient was found to be hypotensive, tachycardic, and febrile at the nursing facility and was brought in for evaluation. Denies ,cough, sob, cp, abdominal pain, LINARES, dizziness, N/V/D. Upon arrival patient was febrile, hypotensive and tachycardic. CXR showing non- acute chest with chronic features. Lab findings remarkable for leukocytosis at 10.5, macrocytic anemia at 10.3, and creat at 1.12 (baseline around 0.8). Patient received fluid bolus, zosyn, and now on levophed drip. Admit to ICU for urosepsis. - Review of Systems Constitutional: Fever, Weakness Eyes: No Symptoms Ears, Nose, & Throat: No Symptoms Respiratory: No Symptoms Cardiac: No Symptoms Abdominal/Gastrointestinal: No Symptoms Genitourinary Symptoms: No Symptoms Musculoskeletal: No Symptoms Skin: Skin Lesions (BLE open wounds ) Neurological: No Symptoms Psychological: No Symptoms Endocrine: No Symptoms Hematologic/Lymphatic: Anemia Immunological/Allergic: No Symptoms Medications & Allergies Home Medications: Home Medication List Aspirin EC 81 mg [Ecotrin 81 mg] 81 mg PO QHS 04/17/22 [History Confirmed 04/20/24] Atorvastatin Calcium 80 mg PO QHS 04/17/22 [History Confirmed 04/20/24] Duloxetine HCl 30 mg PO DAILY 04/17/22 [History Confirmed 04/20/24] Furosemide 60 mg PO DAILY 04/17/22 [History Confirmed 04/20/24] Metoprolol Tartrate 25 mg PO BID 04/17/22 [History Confirmed 04/20/24] Pramipexole Di-HCl [Pramipexole Dihydrochloride] 1 mg PO TID 04/17/22 [History Confirmed 04/20/24] Rivaroxaban [Xarelto] 20 mg PO DAILY 04/17/22 [History Confirmed 04/20/24] Insulin Glargine,Hum.rec.anlog [Lantus] 15 unit SQ QHS 05/26/23 [History Confirmed 04/20/24] Loperamide HCl 2 mg [Imodium 2 mg] 2 mg PO Q6H PRN PRN 05/26/23 [History Confirmed 04/20/24] Melatonin 3 mg PO QHS 05/26/23 [History Confirmed 04/20/24] Pregabalin 50 mg [Lyrica 50MG] 50 mg PO TID 05/26/23 [History Confirmed 04/20/24] Allopurinol 100 mg [Zyloprim 100 mg] 100 mg PO DAILY 06/24/23 [History Confirmed 04/20/24] Acetaminophen 325 mg [Tylenol 325 mg] 650 mg PO Q6H PRN PRN 12/24/23 [History Confirmed 04/20/24] Divalproex Sodium ER 250 mg [Depakote EXTENDED RELEASE 250 MG] 750 mg PO DAILY 12/24/23 [History Confirmed 04/20/24] Duloxetine HCl 30 mg [Cymbalta 30 MG Capsule] 60 mg PO DAILY 12/24/23 [History Confirmed 04/20/24] Exenatide Microspheres [Bydureon Bcise] 2 mg SQ UD 12/24/23 [History Confirmed 04/20/24] Ferrous Sulfate 325 mg [Feosol 325 mg] 650 mg PO DAILY 12/24/23 [History Confirmed 04/20/24] Furosemide 40 mg PO EVENING MEAL 12/24/23 [History Confirmed 04/20/24] Levothyroxine Sodium 25 mcg PO DAILY 12/24/23 [History Confirmed 04/20/24] Lipase/Protease/Amylase [Elvis Portillo 24,000 Unit Capsule] 1 cap PO TIDWMEALS 12/24/23 [History Confirmed 04/20/24] Multivitamin [Multi-Vitamin Daily] 1 each PO DAILY 12/24/23 [History Confirmed 04/20/24] Nystatin Powder 15 gm [Nystop Powder 15 gm] 15 gm TP BID 12/24/23 [History Confirmed 04/20/24] Ubidecarenone/Vit E Acet [Co Q-10 100 mg Softgel] 1 ea PO DAILY 12/24/23 [History Confirmed 04/20/24] Calcium Carbonate/Vitamin D3 [Calcium 500 mg-Vit D3 5 Mcg Tb] 1 each PO DAILY 04/20/24 [History Confirmed 04/20/24] Carboxymethylcellulose Sodium [Artificial Tears] 1 unit OP TID 04/20/24 [History Confirmed 04/20/24] Cholecalciferol (Vitamin D3) [Vitamin D] 5,000 units PO DAILY 04/20/24 [History Confirmed 04/20/24] Linaclotide [Linzess] 72 mcg PO DAILY 04/20/24 [History Confirmed 04/20/24] Loratadine 10 mg [Claritin 10 mg] 10 mg PO HS 04/20/24 [History Confirmed 04/20/24] Oxybutynin Chloride Xl 5 mg [Ditropan XL 5 MG] 5 mg PO EVENING MEAL 04/20/24 [History Confirmed 04/20/24] Potassium Chloride 20 mg PO DAILY 04/20/24 [History Confirmed 04/20/24] Propranolol HCl [Inderal ] 30 mg PO DAILY 04/20/24 [History Confirmed 04/20/24] glucagon HCL [Glucagon Emergency Kit] 1 mg SQ UD PRN 04/20/24 [History Confirmed 04/20/24] Allergies/Adverse Reactions: Allergies Allergy/AdvReac Type Severity Reaction Status Date / Time oxycodone Allergy Severe Itching Verified 12/24/23 07:56 - Past Medical History Past Medical History: Yes Neurological History: Migraines, TIA, Other ENT History: No Pertinent History Cardiac History: High Cholesterol, Hypertension, Other Respiratory History: No Pertinent History Endocrine Medical History: Diabetes Type II Musculoskelatal History: No Pertinent History, Degenerative Disk Disease GI Medical History: Crohns Disease, Irritable Bowel History: No Pertinent History Pyscho-Social History: No Pertinent History Reproductive Disorders: No Pertinent History Comment: NEUROPATHY - Past Surgical History Past Surgical History: Yes Neuro Surgical History: No Pertinent History Cardiac History: Pacemaker Respiratory Surgery: No Pertinent History GI Surgical History: Appendectomy, Cholecystectomy Genitourinary Surgical Hx: No Pertinent History Musculskeletal Surgical Hx: Joint Replacement, Orthopedic Surgery Female Surgical History: No Pertinent History Other Surgical History: BARIATRIC SURG,CARPAL TUNNEL - Social History Smoking Status: Never smoker Exposure to second hand smoke: No Alcohol: None Drug Use: none - Social Determinants of Health Will the patient participate in the screening: Unable to obtain Do you worry about a steady place to live?: No Do you have any problems with any of the following?: No known problems In the past 12 months,have you had to go without utilities?: No Have you or anyone in your house had to go without enough: No Transportation Issues: No Has anyone in your support network made you feel unsafe?: No Comment: Living at [facility] - Physical Exam Vital Signs: Vital Signs - 24 hr Temp Pulse Resp BP Pulse Ox 04/20/24 07:21 103 H 22 66/49 96 04/20/24 07:10 75 22 164/78 04/20/24 07:01 74 20 142/77 04/20/24 06:50 62 19 71/46 04/20/24 06:40 74 19 70/43 96 04/20/24 06:31 96 H 20 71/40 97 04/20/24 06:20 76 21 79/61 93 L 04/20/24 06:10 96 H 21 75/56 92 L 04/20/24 06:00 100 H 19 76/53 92 L 04/20/24 05:50 101 H 20 72/50 96 04/20/24 05:40 77 20 76/45 93 L 04/20/24 05:30 100 H 20 76/56 04/20/24 05:20 102 H 21 81/56 04/20/24 05:10 93 H 23 67/47 04/20/24 05:00 101 H 22 83/43 93 L 04/20/24 04:39 93 L 04/20/24 04:34 100.1 F General Appearance: no apparent distress Neurologic Exam: alert, oriented x 3, cooperative Eye Exam: PERRL/EOMI Ears, Nose, Throat Exam: normal ENT inspection Neck Exam: normal inspection Respiratory Exam: normal breath sounds, lungs clear Cardiovascular Exam: regular rate/rhythm, normal heart sounds Gastrointestinal/Abdomen Exam: soft, normal bowel sounds Pelvic Exam: not done Rectal Exam: deferred Back Exam: normal inspection Skin Exam: other (BLE with open wounds Yeast dermatitis under bilateral breast and abdominal folds) Results - Labs Lab/Micro Results: Lab Results-Last 24 Hours 04/20/24 04/20/24 04/20/24 Range/Units 04:40 05:10 05:10 WBC 10.5 H (3.98-10.04) x10^3/uL RBC 3.24 L (3.93-5.22) x10^6/uL Hgb 10.3 L (11.2-15.7) g/dL Hct 31.4 L (34.1-44.9) % MCV 96.9 H (79.4-94.8) fL MCH 31.8 (25.6-32.2) pg MCHC 32.8 (32.2-35.5) g/dL RDW 15.0 H (11.7-14.4) % Plt Count 156 L (182-369) x10^3/uL MPV 10.3 (9.4-12.3) fL Gran % 72.9 H (34.0-71.1) % Immature Gran % (Auto) 0.3 (0.001-0.429) % Nucleat RBC Rel Count 0.0 (0.00-0.2) % Eos # (Auto) 0.01 L (0.04-0.36) x10^3/uL Immature Gran # (Auto) 0.03 (0.001-0.031) x10^3u/L Absolute Lymphs (auto) 1.75 (1.18-3.74) x10^3/uL Absolute Monos (auto) 1.03 H (0.24-0.86) x10^3/uL Absolute Nucleated RBC 0.00 (0.00-0.012) x10^3u/L Lymphocytes % 16.6 L (19.3-51.7) % Monocytes % 9.8 (4.7-12.5) % Eosinophils % 0.1 L (0.7-5.8) % Basophils % 0.3 (0.1-1.2) % Absolute Granulocytes 7.69 H (1.56-6.13) x10^3/uL Basophils # 0.03 (0.01-0.08) x10^3/uL Sodium 138 (135-145) mmol/L Potassium 3.7 (3.5-5.1) mmol/L Chloride 103 (98-107) mmol/L Carbon Dioxide 28 (22-30) mmol/L Anion Gap 9.5 (5-15) MEQ/L BUN 27 H (7-17) mg/dL Creatinine 1.12 H (0.52-1.04) mg/dL Estimated GFR 51.0 ML/MIN Glucose 133 H (74-106) mg/dL Lactic Acid (0.4-2.0) Calcium 8.2 L (8.4-10.2) mg/dL Total Bilirubin 1.30 (0.2-1.3) mg/dL AST 87 H (14-36) U/L ALT 70 H (0-35) U/L Alkaline Phosphatase 83 (38-126) U/L Serum Total Protein 6.1 L (6.3-8.2) g/dL Albumin 3.0 L (3.5-5.0) g/dL Urine Color Yellow (Yellow) Urine Appearance Turbid A (Clear) Urine pH 5.5 (4.6-8.0) Ur Specific [place] 1.015 (1.005-1.030) Urine Protein 100 A (Negative) Urine Glucose (UA) Negative (Negative) mg/dL Urine Ketones Negative (Negative) Urine Blood Large A (Negative) Urine Nitrite Negative (Negative) Urine Bilirubin Negative (Negative) Urine Urobilinogen 1.0 A (0.2) mg/dL Ur Leukocyte Esterase Large A (Negative) U Hyaline Cast (Auto) NONE SEEN (0-2) /LPF Urine Microscopic RBC 11-20 A (0-5) /HPF Urine Microscopic WBC >100 A (0-5) /HPF Ur Epithelial Cells None Seen (None Seen) /HPF Urine Bacteria Many A (None Seen) /HPF Urine Culture Reflexed ORDERED SEPARATELY (NO) Valproic Acid (50-100) ug/mL Monoscreen (NEGATIVE) Influenza Type A Ag (NEGATIVE) Influenza Type B Ag (NEGATIVE) RSV (PCR) (NEGATIVE) SARS-CoV-2 (PCR) (NEGATIVE) Group A Strep Antibody (NEGATIVE) 04/20/24 04/20/24 04/20/24 Range/Units 05:10 05:10 05:10 WBC (3.98-10.04) x10^3/uL RBC (3.93-5.22) x10^6/uL Hgb (11.2-15.7) g/dL Hct (34.1-44.9) % MCV (79.4-94.8) fL MCH (25.6-32.2) pg MCHC (32.2-35.5) g/dL RDW (11.7-14.4) % Plt Count (182-369) x10^3/uL MPV (9.4-12.3) fL Gran % (34.0-71.1) % Immature Gran % (Auto) (0.001-0.429) % Nucleat RBC Rel Count (0.00-0.2) % Eos # (Auto) (0.04-0.36) x10^3/uL Immature Gran # (Auto) (0.001-0.031) x10^3u/L Absolute Lymphs (auto) (1.18-3.74) x10^3/uL Absolute Monos (auto) (0.24-0.86) x10^3/uL Absolute Nucleated RBC (0.00-0.012) x10^3u/L Lymphocytes % (19.3-51.7) % Monocytes % (4.7-12.5) % Eosinophils % (0.7-5.8) % Basophils % (0.1-1.2) % Absolute Granulocytes (1.56-6.13) x10^3/uL Basophils # (0.01-0.08) x10^3/uL Sodium (135-145) mmol/L Potassium (3.5-5.1) mmol/L Chloride (98-107) mmol/L Carbon Dioxide (22-30) mmol/L Anion Gap (5-15) MEQ/L BUN (7-17) mg/dL Creatinine (0.52-1.04) mg/dL Estimated GFR ML/MIN Glucose (74-106) mg/dL Lactic Acid (0.4-2.0) Calcium (8.4-10.2) mg/dL Total Bilirubin (0.2-1.3) mg/dL AST (14-36) U/L ALT (0-35) U/L Alkaline Phosphatase (38-126) U/L Serum Total Protein (6.3-8.2) g/dL Albumin (3.5-5.0) g/dL Urine Color (Yellow) Urine Appearance (Clear) Urine pH (4.6-8.0) Ur Specific [place] (1.005-1.030) Urine Protein (Negative) Urine Glucose (UA) (Negative) mg/dL Urine Ketones (Negative) Urine Blood (Negative) Urine Nitrite (Negative) Urine Bilirubin (Negative) Urine Urobilinogen (0.2) mg/dL Ur Leukocyte Esterase (Negative) U Hyaline Cast (Auto) (0-2) /LPF Urine Microscopic RBC (0-5) /HPF Urine Microscopic WBC (0-5) /HPF Ur Epithelial Cells (None Seen) /HPF Urine Bacteria (None Seen) /HPF Urine Culture Reflexed (NO) Valproic Acid (50-100) ug/mL Monoscreen NEGATIVE (NEGATIVE) Influenza Type A Ag NEGATIVE (NEGATIVE) Influenza Type B Ag NEGATIVE (NEGATIVE) RSV (PCR) NEGATIVE (NEGATIVE) SARS-CoV-2 (PCR) NEGATIVE (NEGATIVE) Group A Strep Antibody NOT DETECTED (NEGATIVE) 04/20/24 04/20/24 Range/Units 05:10 05:50 WBC (3.98-10.04) x10^3/uL RBC (3.93-5.22) x10^6/uL Hgb (11.2-15.7) g/dL Hct (34.1-44.9) % MCV (79.4-94.8) fL MCH (25.6-32.2) pg MCHC (32.2-35.5) g/dL RDW (11.7-14.4) % Plt Count (182-369) x10^3/uL MPV (9.4-12.3) fL Gran % (34.0-71.1) % Immature Gran % (Auto) (0.001-0.429) % Nucleat RBC Rel Count (0.00-0.2) % Eos # (Auto) (0.04-0.36) x10^3/uL Immature Gran # (Auto) (0.001-0.031) x10^3u/L Absolute Lymphs (auto) (1.18-3.74) x10^3/uL Absolute Monos (auto) (0.24-0.86) x10^3/uL Absolute Nucleated RBC (0.00-0.012) x10^3u/L Lymphocytes % (19.3-51.7) % Monocytes % (4.7-12.5) % Eosinophils % (0.7-5.8) % Basophils % (0.1-1.2) % Absolute Granulocytes (1.56-6.13) x10^3/uL Basophils # (0.01-0.08) x10^3/uL Sodium (135-145) mmol/L Potassium (3.5-5.1) mmol/L Chloride (98-107) mmol/L Carbon Dioxide (22-30) mmol/L Anion Gap (5-15) MEQ/L BUN (7-17) mg/dL Creatinine (0.52-1.04) mg/dL Estimated GFR ML/MIN Glucose (74-106) mg/dL Lactic Acid 1.5 (0.4-2.0) Calcium (8.4-10.2) mg/dL Total Bilirubin (0.2-1.3) mg/dL AST (14-36) U/L ALT (0-35) U/L Alkaline Phosphatase (38-126) U/L Serum Total Protein (6.3-8.2) g/dL Albumin (3.5-5.0) g/dL Urine Color (Yellow) Urine Appearance (Clear) Urine pH (4.6-8.0) Ur Specific [place] (1.005-1.030) Urine Protein (Negative) Urine Glucose (UA) (Negative) mg/dL Urine Ketones (Negative) Urine Blood (Negative) Urine Nitrite (Negative) Urine Bilirubin (Negative) Urine Urobilinogen (0.2) mg/dL Ur Leukocyte Esterase (Negative) U Hyaline Cast (Auto) (0-2) /LPF Urine Microscopic RBC (0-5) /HPF Urine Microscopic WBC (0-5) /HPF Ur Epithelial Cells (None Seen) /HPF Urine Bacteria (None Seen) /HPF Urine Culture Reflexed (NO) Valproic Acid 28.9 L (50-100) ug/mL Monoscreen (NEGATIVE) Influenza Type A Ag (NEGATIVE) Influenza Type B Ag (NEGATIVE) RSV (PCR) (NEGATIVE) SARS-CoV-2 (PCR) (NEGATIVE) Group A Strep Antibody (NEGATIVE) - Radiology Impressions Radiology Exams & Impressions: Radiology Procedures Category Date Time Status CHEST 1 VIEW (PORTABLE) Stat Exams 04/20/24 04:40 Completed Assessment/Plan (1) Sepsis Current Visit: Yes Status: Acute Assessment & Plan: -Most likely secondary to UTI - meets criteria with tachycardia, tachypnea, fever, known source of infection - Severe with- ELIS/hypotension -supplemental oxygen with goal spo2 > 92% - RA at baseline and currently -WBC mild elevation with left shift at 10.5, LA wnl, CXR with no acute findings, UA suspicious for infection -Levophed drip initiated in ED- will titrate - target map >65mmHg and urine output> 0.5ml/kg/hr -strict I&O -Previous urine cultures reviewed noted Ecoli/pseudomonas -will continue Zosyn started in ED -supportive therapies - anti-pyritics/emetics -continue home anticoagulation (2) UTI (urinary tract infection) Current Visit: No Status: Resolved Qualifiers: Urinary tract infection type: acute cystitis Hematuria presence: without hematuria Qualified Code(s): N30.00 - Acute cystitis without hematuria Assessment & Plan: -see sepsis Code(s): N39.0 - URINARY TRACT INFECTION, SITE NOT SPECIFIED (3) ELIS (acute kidney injury) Current Visit: Yes Status: Acute Assessment & Plan: -mild, baseline around 0.8 - current creat at 1.12 -received fluid bolus in ED - monitor for fluid overload with h/o CHF -monitor renal/lytes daily -Avoid nephrotoxic medications Code(s): N17.9 - ACUTE KIDNEY FAILURE, UNSPECIFIED (4) History of TIA (transient ischemic attack) Current Visit: Yes Status: Acute Assessment & Plan: -H/o TIA and baseline dementia - continue home meds Code(s): Z86.73 - PRSNL HX OF TIA (TIA), AND CEREB INFRC W/O RESID DEFICITS (5) Anemia Current Visit: No Status: Acute Qualifiers: Anemia type: unspecified type Qualified Code(s): D64.9 - Anemia, unspecified Assessment & Plan: -at baseline - on iron supplementation- monitor Code(s): D64.9 - ANEMIA, UNSPECIFIED (6) Afib Current Visit: No Status: Chronic Assessment & Plan: --continue metoprolol/xarelto -Pacemaker Code(s): I48.91 - UNSPECIFIED ATRIAL FIBRILLATION (7) CHF (congestive heart failure) Current Visit: No Status: Chronic Assessment & Plan: -CXR with no acute cardiopulmonary findings -No echo on file - follows with Dr. 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 use Diabetes mellitus complication status: with skin complications Diabetes mellitus complication detail: with foot ulcer Qualified Code(s): E11.621 - Type 2 diabetes mellitus with foot ulcer; L97.509 - Non-pressure chronic ulcer of other part of unspecified foot with unspecified severity; Z79.4 - intermediate card tender (current) use of insulin Assessment & Plan: -ADA mechanical soft diet -SSI /glargine -A1c Code(s): E11.9 - TYPE 2 DIABETES MELLITUS WITHOUT COMPLICATIONS (9) Hypothyroid Current Visit: No Status: Chronic Assessment & Plan: -continue levothyroxine -check TSH level Code(s): E03.9 - HYPOTHYROIDISM, UNSPECIFIED (10) CAD (coronary artery disease) Current Visit: Yes Status: Acute Assessment & Plan: -with stent placement -continue home meds VTE: Xarelto PPI: Protonix Next of Kin: Lilly Verdin -child - [phone] Dispo: 2-3 days Code(s): I25.10 - ATHSCL HEART DISEASE OF [place] CORONARY ARTERY W/O ANG PCTRS (11) Yeast dermatitis Current Visit: Yes Status: Acute Assessment & Plan: -diflucan - topical nystatin powder VTE: Xarelto PPI:protonix Dispo: 2-3 days Code(s): B37.2 - CANDIDIASIS OF SKIN AND NAIL <MARIBELL BURGESS - Last Filed: 04/20/24 23:37> History of Present Illness - Chief Complaint History of Present Illness: is a 78 year old female. - Physical Exam Vital Signs: Vital Signs - 24 hr Temp Pulse Resp BP BP Pulse Ox 04/20/24 23:15 64 17 98/53 97 04/20/24 23:00 63 19 106/65 96 04/20/24 22:45 65 17 107/57 90 L 04/20/24 22:30 63 22 105/53 95 04/20/24 22:15 61 19 111/56 04/20/24 22:00 66 19 119/56 95 04/20/24 21:45 64 19 101/55 96 04/20/24 21:30 68 17 113/61 94 L 04/20/24 21:15 68 18 109/48 94 L 04/20/24 21:00 69 29 H 98/64 94 L 04/20/24 20:45 70 34 H 116/55 94 L 04/20/24 20:30 68 18 106/56 95 04/20/24 20:15 97.9 F 74 17 96/54 96 04/20/24 20:00 73 30 H 109/55 93 L 04/20/24 19:48 73 21 95/55 93 L 04/20/24 19:30 73 27 H 108/63 94 L 04/20/24 19:04 76 20 150/78 92 L 04/20/24 18:46 78 20 151/68 04/20/24 18:30 81 22 131/65 04/20/24 18:15 82 21 122/66 04/20/24 18:01 86 21 108/65 04/20/24 17:46 87 23 144/60 04/20/24 17:30 86 129/68 04/20/24 17:16 84 120/83 04/20/24 17:01 85 21 147/59 96 04/20/24 16:45 76 25 H 143/68 04/20/24 16:30 82 19 140/68 99 04/20/24 16:24 97.3 F 04/20/24 16:15 80 14 123/63 96 04/20/24 16:00 80 112/68 98 04/20/24 15:45 113 H 21 109/70 94 L 04/20/24 15:36 93 L 04/20/24 15:30 85 15 157/89 94 L 04/20/24 15:16 78 2 L 151/72 95 04/20/24 15:00 79 23 127/63 04/20/24 14:53 76 18 86/65 98 04/20/24 14:46 79 16 87/39 95 04/20/24 14:30 89 26 H 99/53 66 L 04/20/24 14:15 72 19 114/51 100 04/20/24 14:00 74 19 135/64 85 L 04/20/24 13:45 72 18 135/79 94 L 04/20/24 13:30 83 18 131/65 93 L 04/20/24 13:15 85 22 114/58 99 04/20/24 13:01 76 24 104/50 99 04/20/24 12:45 93 H 26 H 110/65 04/20/24 12:30 82 15 118/64 98 04/20/24 12:20 75 12 112/58 04/20/24 12:15 72 18 77/42 97 04/20/24 12:00 73 21 115/55 04/20/24 11:58 98.3 F 96 H 17 181/67 94 L 04/20/24 11:45 74 19 104/53 98 04/20/24 11:30 78 19 117/62 95 04/20/24 11:15 90 21 149/70 97 04/20/24 11:00 74 19 157/71 96 04/20/24 10:45 75 19 169/81 95 04/20/24 10:30 73 18 134/62 94 L 04/20/24 10:17 77 19 136/99 94 L 04/20/24 10:00 103 H 25 H 170/89 92 L 04/20/24 09:45 92 H 19 148/68 96 04/20/24 09:30 79 16 153/91 93 L 04/20/24 09:16 85 17 144/67 93 L 04/20/24 09:00 104 H 16 121/79 92 L 04/20/24 08:48 77 12 181/67 95 04/20/24 08:45 98.3 F 04/20/24 08:00 73 12 115/64 96 04/20/24 07:50 74 22 100/71 97 04/20/24 07:41 70 20 74/50 94 L 04/20/24 07:30 92 H 20 137/91 93 L 04/20/24 07:21 103 H 22 66/49 96 04/20/24 07:10 75 22 164/78 04/20/24 07:01 74 20 142/77 04/20/24 06:50 62 19 71/46 04/20/24 06:40 74 19 70/43 96 04/20/24 06:31 96 H 20 71/40 97 04/20/24 06:20 76 21 79/61 93 L 04/20/24 06:10 96 H 21 75/56 92 L 04/20/24 06:00 100 H 19 76/53 92 L 04/20/24 05:50 101 H 20 72/50 96 04/20/24 05:40 77 20 76/45 93 L 04/20/24 05:30 100 H 20 76/56 04/20/24 05:20 102 H 21 81/56 04/20/24 05:10 93 H 23 67/47 04/20/24 05:00 101 H 22 83/43 93 L 04/20/24 04:39 93 L 04/20/24 04:34 100.1 F Results - Labs Lab/Micro Results: Lab Results-Last 24 Hours 04/20/24 04/20/24 04/20/24 Range/Units 04:40 05:10 05:10 WBC 10.5 H (3.98-10.04) x10^3/uL RBC 3.24 L (3.93-5.22) x10^6/uL Hgb 10.3 L (11.2-15.7) g/dL Hct 31.4 L (34.1-44.9) % MCV 96.9 H (79.4-94.8) fL MCH 31.8 (25.6-32.2) pg MCHC 32.8 (32.2-35.5) g/dL RDW 15.0 H (11.7-14.4) % Plt Count 156 L (182-369) x10^3/uL MPV 10.3 (9.4-12.3) fL Gran % 72.9 H (34.0-71.1) % Immature Gran % (Auto) 0.3 (0.001-0.429) % Nucleat RBC Rel Count 0.0 (0.00-0.2) % Eos # (Auto) 0.01 L (0.04-0.36) x10^3/uL Immature Gran # (Auto) 0.03 (0.001-0.031) x10^3u/L Absolute Lymphs (auto) 1.75 (1.18-3.74) x10^3/uL Absolute Monos (auto) 1.03 H (0.24-0.86) x10^3/uL Absolute Nucleated RBC 0.00 (0.00-0.012) x10^3u/L Lymphocytes % 16.6 L (19.3-51.7) % Monocytes % 9.8 (4.7-12.5) % Eosinophils % 0.1 L (0.7-5.8) % Basophils % 0.3 (0.1-1.2) % Absolute Granulocytes 7.69 H (1.56-6.13) x10^3/uL Basophils # 0.03 (0.01-0.08) x10^3/uL Sodium 138 (135-145) mmol/L Potassium 3.7 (3.5-5.1) mmol/L Chloride 103 (98-107) mmol/L Carbon Dioxide 28 (22-30) mmol/L Anion Gap 9.5 (5-15) MEQ/L BUN 27 H (7-17) mg/dL Creatinine 1.12 H (0.52-1.04) mg/dL Estimated GFR 51.0 ML/MIN Glucose 133 H (74-106) mg/dL POC Glucometer (74 to 106) mg/dL Lactic Acid (0.4-2.0) Calcium 8.2 L (8.4-10.2) mg/dL Total Bilirubin 1.30 (0.2-1.3) mg/dL AST 87 H (14-36) U/L ALT 70 H (0-35) U/L Alkaline Phosphatase 83 (38-126) U/L Serum Total Protein 6.1 L (6.3-8.2) g/dL Albumin 3.0 L (3.5-5.0) g/dL Prealbumin (17.6-36.0) mg/dL TSH 3rd Generation (0.470-4.680) mIU/L Urine Color Yellow (Yellow) Urine Appearance Turbid A (Clear) Urine pH 5.5 (4.6-8.0) Ur Specific Hackett 1.015 (1.005-1.030) Urine Protein 100 A (Negative) Urine Glucose (UA) Negative (Negative) mg/dL Urine Ketones Negative (Negative) Urine Blood Large A (Negative) Urine Nitrite Negative (Negative) Urine Bilirubin Negative (Negative) Urine Urobilinogen 1.0 A (0.2) mg/dL Ur Leukocyte Esterase Large A (Negative) U Hyaline Cast (Auto) NONE SEEN (0-2) /LPF Urine Microscopic RBC 11-20 A (0-5) /HPF Urine Microscopic WBC >100 A (0-5) /HPF Ur Epithelial Cells None Seen (None Seen) /HPF Urine Bacteria Many A (None Seen) /HPF Urine Culture Reflexed ORDERED SEPARATELY (NO) Valproic Acid (50-100) ug/mL Monoscreen (NEGATIVE) Influenza Type A Ag (NEGATIVE) Influenza Type B Ag (NEGATIVE) RSV (PCR) (NEGATIVE) SARS-CoV-2 (PCR) (NEGATIVE) Group A Strep Antibody (NEGATIVE) 04/20/24 04/20/24 04/20/24 Range/Units 05:10 05:10 05:10 WBC (3.98-10.04) x10^3/uL RBC (3.93-5.22) x10^6/uL Hgb (11.2-15.7) g/dL Hct (34.1-44.9) % MCV (79.4-94.8) fL MCH (25.6-32.2) pg MCHC (32.2-35.5) g/dL RDW (11.7-14.4) % Plt Count (182-369) x10^3/uL MPV (9.4-12.3) fL Gran % (34.0-71.1) % Immature Gran % (Auto) (0.001-0.429) % Nucleat RBC Rel Count (0.00-0.2) % Eos # (Auto) (0.04-0.36) x10^3/uL Immature Gran # (Auto) (0.001-0.031) x10^3u/L Absolute Lymphs (auto) (1.18-3.74) x10^3/uL Absolute Monos (auto) (0.24-0.86) x10^3/uL Absolute Nucleated RBC (0.00-0.012) x10^3u/L Lymphocytes % (19.3-51.7) % Monocytes % (4.7-12.5) % Eosinophils % (0.7-5.8) % Basophils % (0.1-1.2) % Absolute Granulocytes (1.56-6.13) x10^3/uL Basophils # (0.01-0.08) x10^3/uL Sodium (135-145) mmol/L Potassium (3.5-5.1) mmol/L Chloride (98-107) mmol/L Carbon Dioxide (22-30) mmol/L Anion Gap (5-15) MEQ/L BUN (7-17) mg/dL Creatinine (0.52-1.04) mg/dL Estimated GFR ML/MIN Glucose (74-106) mg/dL POC Glucometer (74 to 106) mg/dL Lactic Acid (0.4-2.0) Calcium (8.4-10.2) mg/dL Total Bilirubin (0.2-1.3) mg/dL AST (14-36) U/L ALT (0-35) U/L Alkaline Phosphatase (38-126) U/L Serum Total Protein (6.3-8.2) g/dL Albumin (3.5-5.0) g/dL Prealbumin (17.6-36.0) mg/dL TSH 3rd Generation (0.470-4.680) mIU/L Urine Color (Yellow) Urine Appearance (Clear) Urine pH (4.6-8.0) Ur Specific Hackett (1.005-1.030) Urine Protein (Negative) Urine Glucose (UA) (Negative) mg/dL Urine Ketones (Negative) Urine Blood (Negative) Urine Nitrite (Negative) Urine Bilirubin (Negative) Urine Urobilinogen (0.2) mg/dL Ur Leukocyte Esterase (Negative) U Hyaline Cast (Auto) (0-2) /LPF Urine Microscopic RBC (0-5) /HPF Urine Microscopic WBC (0-5) /HPF Ur Epithelial Cells (None Seen) /HPF Urine Bacteria (None Seen) /HPF Urine Culture Reflexed (NO) Valproic Acid (50-100) ug/mL Monoscreen NEGATIVE (NEGATIVE) Influenza Type A Ag NEGATIVE (NEGATIVE) Influenza Type B Ag NEGATIVE (NEGATIVE) RSV (PCR) NEGATIVE (NEGATIVE) SARS-CoV-2 (PCR) NEGATIVE (NEGATIVE) Group A Strep Antibody NOT DETECTED (NEGATIVE) 04/20/24 04/20/24 04/20/24 Range/Units 05:10 05:50 06:00 WBC (3.98-10.04) x10^3/uL RBC (3.93-5.22) x10^6/uL Hgb (11.2-15.7) g/dL Hct (34.1-44.9) % MCV (79.4-94.8) fL MCH (25.6-32.2) pg MCHC (32.2-35.5) g/dL RDW (11.7-14.4) % Plt Count (182-369) x10^3/uL MPV (9.4-12.3) fL Gran % (34.0-71.1) % Immature Gran % (Auto) (0.001-0.429) % Nucleat RBC Rel Count (0.00-0.2) % Eos # (Auto) (0.04-0.36) x10^3/uL Immature Gran # (Auto) (0.001-0.031) x10^3u/L Absolute Lymphs (auto) (1.18-3.74) x10^3/uL Absolute Monos (auto) (0.24-0.86) x10^3/uL Absolute Nucleated RBC (0.00-0.012) x10^3u/L Lymphocytes % (19.3-51.7) % Monocytes % (4.7-12.5) % Eosinophils % (0.7-5.8) % Basophils % (0.1-1.2) % Absolute Granulocytes (1.56-6.13) x10^3/uL Basophils # (0.01-0.08) x10^3/uL Sodium (135-145) mmol/L Potassium (3.5-5.1) mmol/L Chloride (98-107) mmol/L Carbon Dioxide (22-30) mmol/L Anion Gap (5-15) MEQ/L BUN (7-17) mg/dL Creatinine (0.52-1.04) mg/dL Estimated GFR ML/MIN Glucose (74-106) mg/dL POC Glucometer (74 to 106) mg/dL Lactic Acid 1.5 (0.4-2.0) Calcium (8.4-10.2) mg/dL Total Bilirubin (0.2-1.3) mg/dL AST (14-36) U/L ALT (0-35) U/L Alkaline Phosphatase (38-126) U/L Serum Total Protein (6.3-8.2) g/dL Albumin (3.5-5.0) g/dL Prealbumin (17.6-36.0) mg/dL TSH 3rd Generation 1.150 (0.470-4.680) mIU/L Urine Color (Yellow) Urine Appearance (Clear) Urine pH (4.6-8.0) Ur Specific Hackett (1.005-1.030) Urine Protein (Negative) Urine Glucose (UA) (Negative) mg/dL Urine Ketones (Negative) Urine Blood (Negative) Urine Nitrite (Negative) Urine Bilirubin (Negative) Urine Urobilinogen (0.2) mg/dL Ur Leukocyte Esterase (Negative) U Hyaline Cast (Auto) (0-2) /LPF Urine Microscopic RBC (0-5) /HPF Urine Microscopic WBC (0-5) /HPF Ur Epithelial Cells (None Seen) /HPF Urine Bacteria (None Seen) /HPF Urine Culture Reflexed (NO) Valproic Acid 28.9 L (50-100) ug/mL Monoscreen (NEGATIVE) Influenza Type A Ag (NEGATIVE) Influenza Type B Ag (NEGATIVE) RSV (PCR) (NEGATIVE) SARS-CoV-2 (PCR) (NEGATIVE) Group A Strep Antibody (NEGATIVE) 04/20/24 04/20/24 04/20/24 Range/Units 06:00 11:28 17:19 WBC (3.98-10.04) x10^3/uL RBC (3.93-5.22) x10^6/uL Hgb (11.2-15.7) g/dL Hct (34.1-44.9) % MCV (79.4-94.8) fL MCH (25.6-32.2) pg MCHC (32.2-35.5) g/dL RDW (11.7-14.4) % Plt Count (182-369) x10^3/uL MPV (9.4-12.3) fL Gran % (34.0-71.1) % Immature Gran % (Auto) (0.001-0.429) % Nucleat RBC Rel Count (0.00-0.2) % Eos # (Auto) (0.04-0.36) x10^3/uL Immature Gran # (Auto) (0.001-0.031) x10^3u/L Absolute Lymphs (auto) (1.18-3.74) x10^3/uL Absolute Monos (auto) (0.24-0.86) x10^3/uL Absolute Nucleated RBC (0.00-0.012) x10^3u/L Lymphocytes % (19.3-51.7) % Monocytes % (4.7-12.5) % Eosinophils % (0.7-5.8) % Basophils % (0.1-1.2) % Absolute Granulocytes (1.56-6.13) x10^3/uL Basophils # (0.01-0.08) x10^3/uL Sodium (135-145) mmol/L Potassium (3.5-5.1) mmol/L Chloride (98-107) mmol/L Carbon Dioxide (22-30) mmol/L Anion Gap (5-15) MEQ/L BUN (7-17) mg/dL Creatinine (0.52-1.04) mg/dL Estimated GFR ML/MIN Glucose (74-106) mg/dL POC Glucometer 159 H 150 H (74 to 106) mg/dL Lactic Acid (0.4-2.0) Calcium (8.4-10.2) mg/dL Total Bilirubin (0.2-1.3) mg/dL AST (14-36) U/L ALT (0-35) U/L Alkaline Phosphatase (38-126) U/L Serum Total Protein (6.3-8.2) g/dL Albumin (3.5-5.0) g/dL Prealbumin 12.88 L (17.6-36.0) mg/dL TSH 3rd Generation (0.470-4.680) mIU/L Urine Color (Yellow) Urine Appearance (Clear) Urine pH (4.6-8.0) Ur Specific Hackett (1.005-1.030) Urine Protein (Negative) Urine Glucose (UA) (Negative) mg/dL Urine Ketones (Negative) Urine Blood (Negative) Urine Nitrite (Negative) Urine Bilirubin (Negative) Urine Urobilinogen (0.2) mg/dL Ur Leukocyte Esterase (Negative) U Hyaline Cast (Auto) (0-2) /LPF Urine Microscopic RBC (0-5) /HPF Urine Microscopic WBC (0-5) /HPF Ur Epithelial Cells (None Seen) /HPF Urine Bacteria (None Seen) /HPF Urine Culture Reflexed (NO) Valproic Acid (50-100) ug/mL Monoscreen (NEGATIVE) Influenza Type A Ag (NEGATIVE) Influenza Type B Ag (NEGATIVE) RSV (PCR) (NEGATIVE) SARS-CoV-2 (PCR) (NEGATIVE) Group A Strep Antibody (NEGATIVE) 04/20/24 Range/Units 21:53 WBC (3.98-10.04) x10^3/uL RBC (3.93-5.22) x10^6/uL Hgb (11.2-15.7) g/dL Hct (34.1-44.9) % MCV (79.4-94.8) fL MCH (25.6-32.2) pg MCHC (32.2-35.5) g/dL RDW (11.7-14.4) % Plt Count (182-369) x10^3/uL MPV (9.4-12.3) fL Gran % (34.0-71.1) % Immature Gran % (Auto) (0.001-0.429) % Nucleat RBC Rel Count (0.00-0.2) % Eos # (Auto) (0.04-0.36) x10^3/uL Immature Gran # (Auto) (0.001-0.031) x10^3u/L Absolute Lymphs (auto) (1.18-3.74) x10^3/uL Absolute Monos (auto) (0.24-0.86) x10^3/uL Absolute Nucleated RBC (0.00-0.012) x10^3u/L Lymphocytes % (19.3-51.7) % Monocytes % (4.7-12.5) % Eosinophils % (0.7-5.8) % Basophils % (0.1-1.2) % Absolute Granulocytes (1.56-6.13) x10^3/uL Basophils # (0.01-0.08) x10^3/uL Sodium (135-145) mmol/L Potassium (3.5-5.1) mmol/L Chloride (98-107) mmol/L Carbon Dioxide (22-30) mmol/L Anion Gap (5-15) MEQ/L BUN (7-17) mg/dL Creatinine (0.52-1.04) mg/dL Estimated GFR ML/MIN Glucose (74-106) mg/dL POC Glucometer 194 H (74 to 106) mg/dL Lactic Acid (0.4-2.0) Calcium (8.4-10.2) mg/dL Total Bilirubin (0.2-1.3) mg/dL AST (14-36) U/L ALT (0-35) U/L Alkaline Phosphatase (38-126) U/L Serum Total Protein (6.3-8.2) g/dL Albumin (3.5-5.0) g/dL Prealbumin (17.6-36.0) mg/dL TSH 3rd Generation (0.470-4.680) mIU/L Urine Color (Yellow) Urine Appearance (Clear) Urine pH (4.6-8.0) Ur Specific Hackett (1.005-1.030) Urine Protein (Negative) Urine Glucose (UA) (Negative) mg/dL Urine Ketones (Negative) Urine Blood (Negative) Urine Nitrite (Negative) Urine Bilirubin (Negative) Urine Urobilinogen (0.2) mg/dL Ur Leukocyte Esterase (Negative) U Hyaline Cast (Auto) (0-2) /LPF Urine Microscopic RBC (0-5) /HPF Urine Microscopic WBC (0-5) /HPF Ur Epithelial Cells (None Seen) /HPF Urine Bacteria (None Seen) /HPF Urine Culture Reflexed (NO) Valproic Acid (50-100) ug/mL Monoscreen (NEGATIVE) Influenza Type A Ag (NEGATIVE) Influenza Type B Ag (NEGATIVE) RSV (PCR) (NEGATIVE) SARS-CoV-2 (PCR) (NEGATIVE) Group A Strep Antibody (NEGATIVE) Accuchecks Date 04/20/24 Date 04/20/24 Date 04/20/24 Time 21:53 Time 17:23 Time 11:29 - Radiology Impressions Radiology Exams & Impressions: Radiology Procedures Category Date Time Status CHEST 1 VIEW (PORTABLE) Stat Exams 04/20/24 04:40 Completed - Other Procedures and Tests Respiratory Therapy 04/20/24 14:41 BiPap/CPAP ROUTINE LY Encounter - LY Encounter Attestation LY Encounter Attestation: "IhavepersonallyseenandexMORAIMA Godoy andhavediscussed pertinent aspects of their care with Felicita Marie agree with the history, physical exam (any modifications based on my personal exam will be noted below), assessment, and plan as outlined in original note. Please see immediately below for my summ bren of findings and additional assessment and plan along with any meaningful corrections/explanations to the Subjective/Objective portions of the LY note will be noted." My portion of the encounter took place via telemedicine. -Patient admitted with septic shock secondary to pyelonephritis. Had to be started on levophed but weaned off this evening. Started on antibiotics and low rate fluids due to history of CHF. Will continue to monitor.
[2024-04-20] MEDS ORDERED: HUMULIN R SQ PRN (09:15)
[2024-04-20] MEDS ORDERED: Zofran 4 MG/2 ML VIAL IV PRN (09:15)
[2024-04-20] MEDS ORDERED: TYLENOL 325 MG PO PRN (09:15)
[2024-04-20] MEDS ORDERED: GLUCAGON HCL 1 MG SQ PRN (12:42)
[2024-04-20] MEDS ORDERED: IMODIUM 2 MG PO PRN (12:42)
[2024-04-20] MEDS ORDERED: GlucaGen 1 MG IM PRN (13:53)
[2024-04-20] MEDS ORDERED: MEDICATION INTERVENTION MC SCH (14:00)
[2024-04-20] MEDS: Cymbalta 30 MG Capsule PO SCH ×2 (14:18→14:25)
[2024-04-20] MEDS: FEOSOL 325 MG PO SCH (14:25)
[2024-04-20] MEDS: Depakote EXTENDED RELEASE 250 MG PO SCH (14:25)
[2024-04-20] MEDS: Diflucan 100 MG PO SCH (14:25)
[2024-04-20] MEDS: XARELTO 10 MG TABLET PO SCH (14:26)
[2024-04-20] MEDS: Lyrica 50MG PO SCH (14:26)
[2024-04-20] MEDS: Klor Con PO SCH (14:26)
[2024-04-20] MEDS: Mirapex 0.5 MG Tablet PO SCH (14:27)
[2024-04-20] MEDS: Artificial Tears 15 ML OP SCH (14:56)
[2024-04-20] MEDS: PIPERACILLIN/TAZOBACTAM 3.375 GM in Sodium Chloride 100ML MINI-BAG PLUS 100 ML IV SCH (14:58)
[2024-04-20] MEDS ORDERED: CARBOXYMETHYLCELLULOSE SODIUM OP SCH (15:00)
[2024-04-20] MEDS ORDERED: NON-FORMULARY ITEM (Pramipexole Di-Hcl [Pramipexole Dihydrochloride] 1 MG Tablet) PO SCH (15:00)
[2024-04-20] MEDS ORDERED: LIPASE PO SCH (17:00)
[2024-04-20] MEDS ORDERED: AMYLASE PO SCH (17:00)
[2024-04-20] MEDS ORDERED: [UNRECOGNIZED DRUG - OTHER] PO SCH (17:00)
[2024-04-20] MEDS ORDERED: PROTEASE PO SCH (17:00)
[2024-04-20] MEDS: ZENPEP DR 5,000 UNIT CAPSULE PO SCH (17:24)
[2024-04-20] MEDS: Ditropan XL 5 MG PO SCH (17:25)
[2024-04-20] MEDS ORDERED: NON-FORMULARY ITEM (Atorvastatin Calcium [Atorvastatin Calcium] 80 MG Tablet) PO SCH (22:00)
[2024-04-20] MEDS: Lantus Insulin SQ SCH (22:26)
[2024-04-20] MEDS: HUMALOG SQ PRN (22:27)
[2024-04-20] MEDS: Lopressor 25MG Tab PO SCH (22:28)
[2024-04-20] MEDS: MELATONIN PO SCH (22:28)
[2024-04-20] MEDS: ECOTRIN 81 MG PO SCH (22:28)
[2024-04-20] MEDS: ZOCOR 20MG PO SCH (22:28)
[2024-04-20] MEDS: CLARITIN 10 MG PO SCH (22:29)
[2024-04-20] MEDS: NYSTOP POWDER 15 GM TP SCH (22:32)
[2024-04-21] MEDS: Sodium Chloride 0.9% 1000 ML 1,000 ML IV SCH (04:29)
--- NOTE | 2024-04-21 05:36 | PCM.NOTE ---
Date and Time: 04/21/24 6393 Subjective Assessment: is a 78 year old female with pmhx of migraines, TIA, HLD, CHF, CAD, anemia, HTN, AFIB, DMII, crohns, and DDD presented to ED 04/20/24 from [facility] facility with complaints of generalized weakness and fever. Patient reports symptoms started this morning. Patient was found to be hypotensive, tachycardic, and febrile at the nursing facility and was brought in for evaluation. Denies ,cough, sob, cp, abdominal pain, LINARES, dizziness, N/V/D. Upon arrival patient was febrile, hypotensive and tachycardic. CXR showing non-acute chest with chronic features. Lab findings remarkable for leukocytosis at 10.5, macrocytic anemia at 10.3, and creat at 1.12 (baseline around 0.8). Patient received fluid bolus, zosyn, and now on levophed drip. Admit to ICU for urosepsis. 04/21/24: Patient feeling better today. A&O x 4. States she has "heart fluttering" at time. Known h/o afib. BLE wrapped per podiatry instructions Levophed drip d/c'd -vitals stable. WBC WNL. Urine culture with gram - ID> continue Zosyn. <FELICITA VERDE - Last Filed: 04/21/24 11:16> Date and Time: 04/21/241 <MARIBELL BURGESS - Last Filed: 04/21/24 21:33> - Review of Systems Constitutional: Fatigue, Weakness Eyes: No Symptoms Ears, Nose, & Throat: No Symptoms Respiratory: No Symptoms Cardiac: Palpitations Abdominal/Gastrointestinal: No Symptoms Genitourinary Symptoms: No Symptoms Musculoskeletal: Back Pain Skin: Skin Lesions (BLE -wrapped ) Neurological: No Symptoms Psychological: No Symptoms Endocrine: No Symptoms Hematologic/Lymphatic: No Symptoms Immunological/Allergic: No Symptoms <FELICITA VERDE - Last Filed: 04/21/24 11:16> Objective Exam General Appearance: no apparent distress Neurologic Exam: alert, oriented x 3, cooperative Skin Exam: pale Wound Assessment: Skin/Wound Assessment Wound/Incision Assessment Start: 04/20/24 13:44 Text: Status: Active Freq: Q6H Protocol: Document 04/21/24 02:00 KD (Rec: 04/21/24 05:14 KD [id number]) Wound/Incision Assessment Perineum Wound Assessment Shift Assessment Wound Type shearing General Appearance Open to air Comment barrier cream applied - remains true Left Lower leg Wound Assessment Shift Assessment Wound Stage Non Pressure Wound Dressing Status Dry & Intact Drainage Amount None General Appearance Clean/Dry,Reddened Primary Dressing tubigrip Comment per Dr. Tran Right Lower Leg Wound Assessment Shift Assessment Wound Type venous stasis ulcer Wound Stage Non Pressure Wound Dressing Status Dry & Intact Drainage Amount None General Appearance Reddened Wound Bed Greatest Portion Dusky Red Surrounding Tissue [place] Primary Dressing mepilex Secondary Dressing tubigrip Comment per Dr. Tran Bilateral Abdominal/Groin folds Wound Assessment Shift Assessment Wound Type yeast growth in skin folds Wound Stage Non Pressure Wound General Appearance Open to air Surrounding Tissue [place] Comment Nystatin powder applied Bilateral axilla/breast folds Wound Assessment Shift Assessment Wound Type reddened skin folds Wound Stage Non Pressure Wound General Appearance Open to air,Reddened Surrounding Tissue [place] Comment Nystatin powder applied Wound Photo Photo Taken No Eye Exam: PERRL Ears, Nose, Throat Exam: normal ENT inspection Neck Exam: normal inspection Respiratory Exam: normal breath sounds, lungs clear Cardiovascular Exam: irregular Gastrointestinal/Abdomen Exam: soft, normal bowel sounds Extremity Exam: other (BLE with open wounds-covered in dressing) Back Exam: normal inspection Pelvic Exam: deferred Rectal Exam: deferred <FELICITA VERDE - Last Filed: 04/21/24 11:16> Wound Assessment: Skin/Wound Assessment Wound/Incision Assessment Start: 04/20/24 13:44 Text: Status: Active Freq: Q6H Protocol: Document 04/21/24 14:00 RDUHNE (Rec: 04/21/24 14:04 RDUHNE [id number]) Wound/Incision Assessment Perineum Wound Assessment Shift Assessment Wound Type shearing General Appearance Open to air Comment barrier cream applied - remains true Left Lower leg Wound Assessment Shift Assessment Wound Stage Non Pressure Wound Dressing Status Dry & Intact Drainage Amount None General Appearance Clean/Dry,Reddened Primary Dressing tubigrip Comment per Dr. Tran Right Lower Leg Wound Assessment Shift Assessment Wound Type venous stasis ulcers Wound Stage Non Pressure Wound Dressing Status Dry & Intact Drainage Amount None General Appearance Reddened Wound Bed Greatest Portion [place]us[place] Red Surrounding Tissue [place] Primary Dressing mepilex Secondary Dressing tubigrip Comment per Dr. Tran Bilateral Abdominal/Groin folds Wound Assessment Shift Assessment Wound Type yeast growth in skin folds Wound Stage Non Pressure Wound General Appearance Open to air Surrounding Tissue [place] Comment Nystatin powder applied Bilateral axilla/breast folds Wound Assessment Shift Assessment Wound Type reddened skin folds Wound Stage Non Pressure Wound General Appearance Open to air,Reddened Surrounding Tissue [place] Comment Nystatin powder applied Wound Photo Photo Taken Yes <MARIBELL BURGESS - Last Filed: 04/21/24 21:33> Objective Data Vital Signs: Vital Signs - 24 hr Temp Pulse Resp BP BP Pulse Ox 04/21/24 04:30 60 16 102/58 99 04/21/24 04:00 62 10 L 102/55 96 04/21/24 03:30 61 17 106/57 100 04/21/24 03:05 64 19 95/67 99 04/21/24 02:15 61 15 91/47 98 04/21/24 02:00 65 20 104/52 04/21/24 01:45 61 16 99/52 04/21/24 01:30 60 17 113/55 04/21/24 01:15 72 18 102/52 04/21/24 01:00 96.9 F 60 18 107/51 04/21/24 00:45 60 20 99/51 04/21/24 00:30 63 19 110/59 04/21/24 00:15 60 14 108/55 95 04/21/24 00:01 62 04/21/24 00:00 62 15 103/61 95 04/20/24 23:45 63 18 96/52 95 04/20/24 23:30 62 16 93/48 96 04/20/24 23:15 66 18 98/53 96 04/20/24 23:00 63 19 106/65 96 04/20/24 22:45 65 17 107/57 90 L 04/20/24 22:30 63 22 105/53 95 04/20/24 22:15 61 19 111/56 04/20/24 22:00 66 19 119/56 95 04/20/24 21:45 64 19 101/55 96 04/20/24 21:30 68 17 113/61 94 L 04/20/24 21:15 68 18 109/48 94 L 04/20/24 21:00 69 29 H 98/64 94 L 04/20/24 20:45 70 34 H 116/55 94 L 04/20/24 20:30 68 18 106/56 95 04/20/24 20:15 97.9 F 74 17 96/54 96 04/20/24 20:00 73 30 H 109/55 93 L 04/20/24 19:48 73 21 95/55 93 L 04/20/24 19:30 73 27 H 108/63 94 L 04/20/24 19:04 76 20 150/78 92 L 04/20/24 18:46 78 20 151/68 04/20/24 18:30 81 22 131/65 04/20/24 18:15 82 21 122/66 04/20/24 18:01 86 21 108/65 04/20/24 17:46 87 23 144/60 04/20/24 17:30 86 129/68 04/20/24 17:16 84 120/83 04/20/24 17:01 85 21 147/59 96 04/20/24 16:45 76 25 H 143/68 04/20/24 16:30 82 19 140/68 99 04/20/24 16:24 97.3 F 04/20/24 16:15 80 14 123/63 96 04/20/24 16:00 80 112/68 98 04/20/24 15:45 113 H 21 109/70 94 L 04/20/24 15:36 93 L 04/20/24 15:30 85 15 157/89 94 L 04/20/24 15:16 78 2 L 151/72 95 04/20/24 15:00 79 23 127/63 04/20/24 14:53 76 18 86/65 98 04/20/24 14:46 79 16 87/39 95 04/20/24 14:30 89 26 H 99/53 66 L 04/20/24 14:15 72 19 114/51 100 04/20/24 14:00 74 19 135/64 85 L 04/20/24 13:45 72 18 135/79 94 L 04/20/24 13:30 83 18 131/65 93 L 04/20/24 13:15 85 22 114/58 99 04/20/24 13:01 76 24 104/50 99 04/20/24 12:45 93 H 26 H 110/65 04/20/24 12:30 82 15 118/64 98 04/20/24 12:20 75 12 112/58 04/20/24 12:15 72 18 77/42 97 04/20/24 12:00 73 21 115/55 04/20/24 11:58 98.3 F 96 H 17 181/67 94 L 04/20/24 11:45 74 19 104/53 98 04/20/24 11:30 78 19 117/62 95 04/20/24 11:15 90 21 149/70 97 04/20/24 11:00 74 19 157/71 96 04/20/24 10:45 75 19 169/81 95 04/20/24 10:30 73 18 134/62 94 L 04/20/24 10:17 77 19 136/99 94 L 04/20/24 10:00 103 H 25 H 170/89 92 L 04/20/24 09:45 92 H 19 148/68 96 04/20/24 09:30 79 16 153/91 93 L 04/20/24 09:16 85 17 144/67 93 L 04/20/24 09:00 104 H 16 121/79 92 L 04/20/24 08:48 77 12 181/67 95 04/20/24 08:45 98.3 F 04/20/24 08:00 73 12 115/64 96 04/20/24 07:50 74 22 100/71 97 04/20/24 07:41 70 20 74/50 94 L 04/20/24 07:30 92 H 20 137/91 93 L 04/20/24 07:21 103 H 22 66/49 96 04/20/24 07:10 75 22 164/78 04/20/24 07:01 74 20 142/77 04/20/24 06:50 62 19 71/46 04/20/24 06:40 74 19 70/43 96 04/20/24 06:31 96 H 20 71/40 97 04/20/24 06:20 76 21 79/61 93 L 04/20/24 06:10 96 H 21 75/56 92 L 04/20/24 06:00 100 H 19 76/53 92 L 04/20/24 05:50 101 H 20 72/50 96 04/20/24 05:40 77 20 76/45 93 L Pain Assessment - Last Documented Pain Intensity 8 Intake and Output: Intake & Output 04/18/24 04/19/24 04/20/24 04/21/24 11:59 11:59 11:59 11:59 Intake Total 1065 Output Total 175 Balance 890 Weight 123.8 kg Lab Results: Lab Results-Last 24 Hours 04/20/24 04/20/24 04/20/24 Range/Units 04:40 05:10 05:10 Sodium 138 (135-145) mmol/L Potassium 3.7 (3.5-5.1) mmol/L Chloride 103 (98-107) mmol/L Carbon Dioxide 28 (22-30) mmol/L Anion Gap 9.5 (5-15) MEQ/L BUN 27 H (7-17) mg/dL Creatinine 1.12 H (0.52-1.04) mg/dL Estimated GFR 51.0 ML/MIN Glucose 133 H (74-106) mg/dL POC Glucometer (74 to 106) mg/dL Lactic Acid (0.4-2.0) Calcium 8.2 L (8.4-10.2) mg/dL Total Bilirubin 1.30 (0.2-1.3) mg/dL AST 87 H (14-36) U/L ALT 70 H (0-35) U/L Alkaline Phosphatase 83 (38-126) U/L Serum Total Protein 6.1 L (6.3-8.2) g/dL Albumin 3.0 L (3.5-5.0) g/dL Prealbumin (17.6-36.0) mg/dL TSH 3rd Generation (0.470-4.680) mIU/L Urine Color Yellow (Yellow) Urine Appearance Turbid A (Clear) Urine pH 5.5 (4.6-8.0) Ur Specific [place] 1.015 (1.005-1.030) Urine Protein 100 A (Negative) Urine Glucose (UA) Negative (Negative) mg/dL Urine Ketones Negative (Negative) Urine Blood Large A (Negative) Urine Nitrite Negative (Negative) Urine Bilirubin Negative (Negative) Urine Urobilinogen 1.0 A (0.2) mg/dL Ur Leukocyte Esterase Large A (Negative) U Hyaline Cast (Auto) NONE SEEN (0-2) /LPF Urine Microscopic RBC 11-20 A (0-5) /HPF Urine Microscopic WBC >100 A (0-5) /HPF Ur Epithelial Cells None Seen (None Seen) /HPF Urine Bacteria Many A (None Seen) /HPF Urine Culture Reflexed ORDERED SEPARATELY (NO) Valproic Acid (50-100) ug/mL Monoscreen (NEGATIVE) Influenza Type A Ag (NEGATIVE) Influenza Type B Ag (NEGATIVE) RSV (PCR) (NEGATIVE) SARS-CoV-2 (PCR) (NEGATIVE) Group A Strep Antibody NOT DETECTED (NEGATIVE) 04/20/24 04/20/24 04/20/24 Range/Units 05:10 05:10 05:10 Sodium (135-145) mmol/L Potassium (3.5-5.1) mmol/L Chloride (98-107) mmol/L Carbon Dioxide (22-30) mmol/L Anion Gap (5-15) MEQ/L BUN (7-17) mg/dL Creatinine (0.52-1.04) mg/dL Estimated GFR ML/MIN Glucose (74-106) mg/dL POC Glucometer (74 to 106) mg/dL Lactic Acid (0.4-2.0) Calcium (8.4-10.2) mg/dL Total Bilirubin (0.2-1.3) mg/dL AST (14-36) U/L ALT (0-35) U/L Alkaline Phosphatase (38-126) U/L Serum Total Protein (6.3-8.2) g/dL Albumin (3.5-5.0) g/dL Prealbumin (17.6-36.0) mg/dL TSH 3rd Generation (0.470-4.680) mIU/L Urine Color (Yellow) Urine Appearance (Clear) Urine pH (4.6-8.0) Ur Specific [place] (1.005-1.030) Urine Protein (Negative) Urine Glucose (UA) (Negative) mg/dL Urine Ketones (Negative) Urine Blood (Negative) Urine Nitrite (Negative) Urine Bilirubin (Negative) Urine Urobilinogen (0.2) mg/dL Ur Leukocyte Esterase (Negative) U Hyaline Cast (Auto) (0-2) /LPF Urine Microscopic RBC (0-5) /HPF Urine Microscopic WBC (0-5) /HPF Ur Epithelial Cells (None Seen) /HPF Urine Bacteria (None Seen) /HPF Urine Culture Reflexed (NO) Valproic Acid 28.9 L (50-100) ug/mL Monoscreen NEGATIVE (NEGATIVE) Influenza Type A Ag NEGATIVE (NEGATIVE) Influenza Type B Ag NEGATIVE (NEGATIVE) RSV (PCR) NEGATIVE (NEGATIVE) SARS-CoV-2 (PCR) NEGATIVE (NEGATIVE) Group A Strep Antibody (NEGATIVE) 04/20/24 04/20/24 04/20/24 Range/Units 05:50 06:00 06:00 Sodium (135-145) mmol/L Potassium (3.5-5.1) mmol/L Chloride (98-107) mmol/L Carbon Dioxide (22-30) mmol/L Anion Gap (5-15) MEQ/L BUN (7-17) mg/dL Creatinine (0.52-1.04) mg/dL Estimated GFR ML/MIN Glucose (74-106) mg/dL POC Glucometer (74 to 106) mg/dL Lactic Acid 1.5 (0.4-2.0) Calcium (8.4-10.2) mg/dL Total Bilirubin (0.2-1.3) mg/dL AST (14-36) U/L ALT (0-35) U/L Alkaline Phosphatase (38-126) U/L Serum Total Protein (6.3-8.2) g/dL Albumin (3.5-5.0) g/dL Prealbumin 12.88 L (17.6-36.0) mg/dL TSH 3rd Generation 1.150 (0.470-4.680) mIU/L Urine Color (Yellow) Urine Appearance (Clear) Urine pH (4.6-8.0) Ur Specific [place] (1.005-1.030) Urine Protein (Negative) Urine Glucose (UA) (Negative) mg/dL Urine Ketones (Negative) Urine Blood (Negative) Urine Nitrite (Negative) Urine Bilirubin (Negative) Urine Urobilinogen (0.2) mg/dL Ur Leukocyte Esterase (Negative) U Hyaline Cast (Auto) (0-2) /LPF Urine Microscopic RBC (0-5) /HPF Urine Microscopic WBC (0-5) /HPF Ur Epithelial Cells (None Seen) /HPF Urine Bacteria (None Seen) /HPF Urine Culture Reflexed (NO) Valproic Acid (50-100) ug/mL Monoscreen (NEGATIVE) Influenza Type A Ag (NEGATIVE) Influenza Type B Ag (NEGATIVE) RSV (PCR) (NEGATIVE) SARS-CoV-2 (PCR) (NEGATIVE) Group A Strep Antibody (NEGATIVE) 04/20/24 04/20/24 04/20/24 Range/Units 11:28 17:19 21:53 Sodium (135-145) mmol/L Potassium (3.5-5.1) mmol/L Chloride (98-107) mmol/L Carbon Dioxide (22-30) mmol/L Anion Gap (5-15) MEQ/L BUN (7-17) mg/dL Creatinine (0.52-1.04) mg/dL Estimated GFR ML/MIN Glucose (74-106) mg/dL POC Glucometer 159 H 150 H 194 H (74 to 106) mg/dL Lactic Acid (0.4-2.0) Calcium (8.4-10.2) mg/dL Total Bilirubin (0.2-1.3) mg/dL AST (14-36) U/L ALT (0-35) U/L Alkaline Phosphatase (38-126) U/L Serum Total Protein (6.3-8.2) g/dL Albumin (3.5-5.0) g/dL Prealbumin (17.6-36.0) mg/dL TSH 3rd Generation (0.470-4.680) mIU/L Urine Color (Yellow) Urine Appearance (Clear) Urine pH (4.6-8.0) Ur Specific [place] (1.005-1.030) Urine Protein (Negative) Urine Glucose (UA) (Negative) mg/dL Urine Ketones (Negative) Urine Blood (Negative) Urine Nitrite (Negative) Urine Bilirubin (Negative) Urine Urobilinogen (0.2) mg/dL Ur Leukocyte Esterase (Negative) U Hyaline Cast (Auto) (0-2) /LPF Urine Microscopic RBC (0-5) /HPF Urine Microscopic WBC (0-5) /HPF Ur Epithelial Cells (None Seen) /HPF Urine Bacteria (None Seen) /HPF Urine Culture Reflexed (NO) Valproic Acid (50-100) ug/mL Monoscreen (NEGATIVE) Influenza Type A Ag (NEGATIVE) Influenza Type B Ag (NEGATIVE) RSV (PCR) (NEGATIVE) SARS-CoV-2 (PCR) (NEGATIVE) Group A Strep Antibody (NEGATIVE) Radiology Exams: Radiology Procedures Category Date Time Status CHEST 1 VIEW (PORTABLE) Stat Exams 04/20/24 04:40 Completed <FELICITA VERDE - Last Filed: 04/21/24 11:16> Vital Signs: Vital Signs - 24 hr Temp Pulse Resp BP Pulse Ox 04/21/24 18:35 74 23 155/66 98 04/21/24 18:00 125/71 04/21/24 17:30 77 30 H 150/75 04/21/24 17:00 71 18 126/73 04/21/24 16:30 70 22 140/59 04/21/24 16:00 66 23 129/46 98 04/21/24 15:30 66 23 133/56 96 04/21/24 15:01 68 21 132/41 99 04/21/24 14:30 73 16 131/53 94 L 04/21/24 14:01 64 20 121/63 98 04/21/24 13:30 67 21 155/76 96 04/21/24 13:00 65 21 132/69 97 04/21/24 12:30 66 20 156/79 04/21/24 12:00 66 19 151/63 99 04/21/24 11:30 104 H 19 143/56 98 04/21/24 11:02 74 25 H 04/21/24 10:30 81 20 86/74 04/21/24 10:00 66 18 137/70 04/21/24 09:30 64 18 120/71 96 04/21/24 09:00 68 19 133/53 97 04/21/24 08:30 71 18 119/71 99 04/21/24 08:00 97.1 F 70 21 138/66 85 L 04/21/24 07:30 64 19 126/59 97 04/21/24 07:00 62 16 130/53 98 04/21/24 06:30 62 17 113/64 97 04/21/24 06:03 64 18 106/47 99 04/21/24 05:30 96.8 F 68 26 H 113/54 99 04/21/24 05:01 62 16 127/64 04/21/24 04:30 60 16 102/58 99 04/21/24 04:00 62 10 L 102/55 96 04/21/24 03:30 61 17 106/57 100 04/21/24 03:05 64 19 95/67 99 09/22/24 02:15 61 15 91/47 98 04/21/24 02:00 65 20 104/52 04/21/24 01:45 61 16 99/52 04/21/24 01:30 60 17 113/55 04/21/24 01:15 72 18 102/52 04/21/24 01:00 96.9 F 60 18 107/51 04/21/24 00:45 60 20 99/51 04/21/24 00:30 63 19 110/59 04/21/24 00:15 60 14 108/55 95 04/21/24 00:01 62 04/21/24 00:00 62 15 103/61 95 04/20/24 23:45 63 18 96/52 95 04/20/24 23:30 62 16 93/48 96 04/20/24 23:15 66 18 98/53 96 04/20/24 23:00 63 19 106/65 96 04/20/24 22:45 65 17 107/57 90 L 04/20/24 22:30 63 22 105/53 95 04/20/24 22:15 61 19 111/56 04/20/24 22:00 66 19 119/56 95 04/20/24 21:45 64 19 101/55 96 Pain Assessment - Last Documented Pain Intensity 0 Intake and Output: Intake & Output 04/19/24 04/20/24 04/21/24 04/22/24 11:59 11:59 11:59 11:59 Intake Total 2070 690 Output Total 1060 Balance 1010 690 Weight 123.8 kg Lab Results: Lab Results-Last 24 Hours 04/20/24 04/21/24 04/21/24 Range/Units 21:53 06:25 06:25 WBC 6.2 (3.98-10.04) x10^3/uL RBC 3.09 L (3.93-5.22) x10^6/uL Hgb 9.8 L (11.2-15.7) g/dL Hct 31.0 L (34.1-44.9) % MCV 100.3 H (79.4-94.8) fL MCH 31.7 (25.6-32.2) pg MCHC 31.6 L (32.2-35.5) g/dL RDW 15.0 H (11.7-14.4) % Plt Count 140 L (182-369) x10^3/uL MPV 10.5 (9.4-12.3) fL Gran % 68.9 (34.0-71.1) % Immature Gran % (Auto) 0.3 (0.001-0.429) % Nucleat RBC Rel Count 0.0 (0.00-0.2) % Eos # (Auto) 0.08 (0.04-0.36) x10^3/uL Immature Gran # (Auto) 0.02 (0.001-0.031) x10^3u/L Absolute Lymphs (auto) 1.38 (1.18-3.74) x10^3/uL Absolute Monos (auto) 0.42 (0.24-0.86) x10^3/uL Absolute Nucleated RBC 0.00 (0.00-0.012) x10^3u/L Lymphocytes % 22.4 (19.3-51.7) % Monocytes % 6.8 (4.7-12.5) % Eosinophils % 1.3 (0.7-5.8) % Basophils % 0.3 (0.1-1.2) % Absolute Granulocytes 4.25 (1.56-6.13) x10^3/uL Basophils # 0.02 (0.01-0.08) x10^3/uL Sodium 138 (135-145) mmol/L Potassium 3.7 (3.5-5.1) mmol/L Chloride 106 (98-107) mmol/L Carbon Dioxide 26 (22-30) mmol/L Anion Gap 10.0 (5-15) MEQ/L BUN 26 H (7-17) mg/dL Creatinine 1.29 H (0.52-1.04) mg/dL Estimated GFR 43.0 ML/MIN Glucose 120 H (74-106) mg/dL POC Glucometer 194 H (74 to 106) mg/dL Hemoglobin A1c (4.5-6.0) % Calcium 8.1 L (8.4-10.2) mg/dL Total Bilirubin 1.00 (0.2-1.3) mg/dL AST 70 H (14-36) U/L ALT 59 H (0-35) U/L Alkaline Phosphatase 76 (38-126) U/L NT-Pro-B Natriuret Pep 2600 (<300) pg/mL Serum Total Protein 5.8 L (6.3-8.2) g/dL Albumin 2.8 L (3.5-5.0) g/dL 04/21/24 04/21/24 04/21/24 Range/Units 06:30 07:31 11:32 WBC (3.98-10.04) x10^3/uL RBC (3.93-5.22) x10^6/uL Hgb (11.2-15.7) g/dL Hct (34.1-44.9) % MCV (79.4-94.8) fL MCH (25.6-32.2) pg MCHC (32.2-35.5) g/dL RDW (11.7-14.4) % Plt Count (182-369) x10^3/uL MPV (9.4-12.3) fL Gran % (34.0-71.1) % Immature Gran % (Auto) (0.001-0.429) % Nucleat RBC Rel Count (0.00-0.2) % Eos # (Auto) (0.04-0.36) x10^3/uL Immature Gran # (Auto) (0.001-0.031) x10^3u/L Absolute Lymphs (auto) (1.18-3.74) x10^3/uL Absolute Monos (auto) (0.24-0.86) x10^3/uL Absolute Nucleated RBC (0.00-0.012) x10^3u/L Lymphocytes % (19.3-51.7) % Monocytes % (4.7-12.5) % Eosinophils % (0.7-5.8) % Basophils % (0.1-1.2) % Absolute Granulocytes (1.56-6.13) x10^3/uL Basophils # (0.01-0.08) x10^3/uL Sodium (135-145) mmol/L Potassium (3.5-5.1) mmol/L Chloride (98-107) mmol/L Carbon Dioxide (22-30) mmol/L Anion Gap (5-15) MEQ/L BUN (7-17) mg/dL Creatinine (0.52-1.04) mg/dL Estimated GFR ML/MIN Glucose (74-106) mg/dL POC Glucometer 83 192 H (74 to 106) mg/dL Hemoglobin A1c 7.01 H (4.5-6.0) % Calcium (8.4-10.2) mg/dL Total Bilirubin (0.2-1.3) mg/dL AST (14-36) U/L ALT (0-35) U/L Alkaline Phosphatase (38-126) U/L NT-Pro-B Natriuret Pep (<300) pg/mL Serum Total Protein (6.3-8.2) g/dL Albumin (3.5-5.0) g/dL 04/21/24 Range/Units 16:46 WBC (3.98-10.04) x10^3/uL RBC (3.93-5.22) x10^6/uL Hgb (11.2-15.7) g/dL Hct (34.1-44.9) % MCV (79.4-94.8) fL MCH (25.6-32.2) pg MCHC (32.2-35.5) g/dL RDW (11.7-14.4) % Plt Count (182-369) x10^3/uL MPV (9.4-12.3) fL Gran % (34.0-71.1) % Immature Gran % (Auto) (0.001-0.429) % Nucleat RBC Rel Count (0.00-0.2) % Eos # (Auto) (0.04-0.36) x10^3/uL Immature Gran # (Auto) (0.001-0.031) x10^3u/L Absolute Lymphs (auto) (1.18-3.74) x10^3/uL Absolute Monos (auto) (0.24-0.86) x10^3/uL Absolute Nucleated RBC (0.00-0.012) x10^3u/L Lymphocytes % (19.3-51.7) % Monocytes % (4.7-12.5) % Eosinophils % (0.7-5.8) % Basophils % (0.1-1.2) % Absolute Granulocytes (1.56-6.13) x10^3/uL Basophils # (0.01-0.08) x10^3/uL Sodium (135-145) mmol/L Potassium (3.5-5.1) mmol/L Chloride (98-107) mmol/L Carbon Dioxide (22-30) mmol/L Anion Gap (5-15) MEQ/L BUN (7-17) mg/dL Creatinine (0.52-1.04) mg/dL Estimated GFR ML/MIN Glucose (74-106) mg/dL POC Glucometer 125 H (74 to 106) mg/dL Hemoglobin A1c (4.5-6.0) % Calcium (8.4-10.2) mg/dL Total Bilirubin (0.2-1.3) mg/dL AST (14-36) U/L ALT (0-35) U/L Alkaline Phosphatase (38-126) U/L NT-Pro-B Natriuret Pep (<300) pg/mL Serum Total Protein (6.3-8.2) g/dL Albumin (3.5-5.0) g/dL Radiology Exams: Radiology Procedures Category Date Time Status CHEST 1 VIEW (PORTABLE) Stat Exams 04/20/24 04:40 Completed <MARIBELL BURGESS - Last Filed: 04/21/24 21:33> Assessment/Plan (1) Sepsis Current Visit: Yes Status: Acute Assessment & Plan: -Most likely secondary to UTI - meets criteria with tachycardia, tachypnea, fever, known source of infection - Severe with- ELIS/hypotension -supplemental oxygen with goal spo2 > 92% - RA at baseline and currently -WBC mild elevation with left shift at 10.5, LA wnl, CXR with no acute findings, UA suspicious for infection -Levophed drip initiated in ED- will titrate - target map >65mmHg and urine output> 0.5ml/kg/hr -strict I&O -Previous urine cultures reviewed noted Ecoli/pseudomonas -will continue Zosyn started in ED -supportive therapies - anti-pyritics/emetics -continue home anticoagulation 04/21: -levophed d/cd -WBC now wnl -continue Zosyn -Culture with gram- ID, follow culture (2) UTI (urinary tract infection) Current Visit: No Status: Resolved Qualifiers: Urinary tract infection type: acute cystitis Hematuria presence: without hematuria Qualified Code(s): N30.00 - Acute cystitis without hematuria Assessment & Plan: -see sepsis Code(s): N39.0 - URINARY TRACT INFECTION, SITE NOT SPECIFIED (3) ELIS (acute kidney injury) Current Visit: Yes Status: Acute Assessment & Plan: -mild, baseline around 0.8 - current creat at 1.12 -received fluid bolus in ED - monitor for fluid overload with h/o CHF -monitor renal/lytes daily -Avoid nephrotoxic medications Code(s): N17.9 - ACUTE KIDNEY FAILURE, UNSPECIFIED (4) History of TIA (transient ischemic attack) Current Visit: Yes Status: Acute Assessment & Plan: -H/o TIA and baseline dementia - continue home meds Code(s): Z86.73 - PRSNL HX OF TIA (TIA), AND CEREB INFRC W/O RESID DEFICITS (5) Anemia Current Visit: No Status: Acute Qualifiers: Anemia type: unspecified type Qualified Code(s): D64.9 - Anemia, unspecified Assessment & Plan: -at baseline - on iron supplementation- monitor Code(s): D64.9 - ANEMIA, UNSPECIFIED (6) Afib Current Visit: No Status: Chronic Assessment & Plan: --continue metoprolol/xarelto -Pacemaker Code(s): I48.91 - UNSPECIFIED ATRIAL FIBRILLATION (7) CHF (congestive heart failure) Current Visit: No Status: Chronic Assessment & Plan: -CXR with no acute cardiopulmonary findings -No echo on file - follows with Dr. More Code(s): I50.9 - HEART FAILURE, UNSPECIFIED (8) Diabetes mellitus type II, controlled Current Visit: No Status: Chronic Qualifiers: Diabetes mellitus vermin exterminator insulin use: with vermin exterminator use Diabetes mellitus complication status: with skin complications Diabetes mellitus complication detail: with foot ulcer Qualified Code(s): E11.621 - Type 2 diabetes mellitus with foot ulcer; L97.509 - Non-pressure chronic ulcer of other part of unspecified foot with unspecified severity; Z79.4 - lobsterman (current) use of insulin Assessment & Plan: -ADA mechanical soft diet -SSI /glargine -A1c Code(s): E11.9 - TYPE 2 DIABETES MELLITUS WITHOUT COMPLICATIONS (9) Hypothyroid Current Visit: No Status: Chronic Assessment & Plan: -continue levothyroxine -check TSH level Code(s): E03.9 - HYPOTHYROIDISM, UNSPECIFIED (10) CAD (coronary artery disease) Current Visit: Yes Status: Acute Assessment & Plan: -with stent placement -continue home meds VTE: Xarelto PPI: Protonix Next of Kin: Lilly card - [phone] Dispo: 2-3 days Code(s): I25.10 - ATHSCL HEART DISEASE OF [place] CORONARY ARTERY W/O ANG PCTRS (11) Yeast dermatitis Current Visit: Yes Status: Acute Assessment & Plan: -diflucan - topical nystatin powder VTE: Xarelto PPI:protonix Dispo: 2-3 days (2) UTI (urinary tract infection) Current Visit: No Status: Resolved Qualifiers: Urinary tract infection type: acute cystitis Hematuria presence: without hematuria Qualified Code(s): N30.00 - Acute cystitis without hematuria Code(s): N39.0 - URINARY TRACT INFECTION, SITE NOT SPECIFIED (3) ELIS (acute kidney injury) Current Visit: Yes Status: Acute Code(s): N17.9 - ACUTE KIDNEY FAILURE, UNSPECIFIED (4) History of TIA (transient ischemic attack) Current Visit: Yes Status: Acute Code(s): Z86.73 - PRSNL HX OF TIA (TIA), AND CEREB INFRC W/O RESID DEFICITS (5) Anemia Current Visit: No Status: Acute Qualifiers: Anemia type: unspecified type Qualified Code(s): D64.9 - Anemia, unspecified Code(s): D64.9 - ANEMIA, UNSPECIFIED (6) Afib Current Visit: No Status: Chronic Code(s): I48.91 - UNSPECIFIED ATRIAL FIBRILLATION (7) CHF (congestive heart failure) Current Visit: No Status: Chronic Code(s): I50.9 - HEART FAILURE, UNSPECIFIED (8) Diabetes mellitus type II, controlled Current Visit: No Status: Chronic Qualifiers: Diabetes mellitus vermin exterminator insulin use: with vermin exterminator use Diabetes mellitus complication status: with skin complications Diabetes mellitus complication detail: with foot ulcer Qualified Code(s): E11.621 - Type 2 diabetes mellitus with foot ulcer; L97.509 - Non-pressure chronic ulcer of other part of unspecified foot with unspecified severity; Z79.4 - detention (current) use of insulin Code(s): E11.9 - TYPE 2 DIABETES MELLITUS WITHOUT COMPLICATIONS (9) Hypothyroid Current Visit: No Status: Chronic Code(s): E03.9 - HYPOTHYROIDISM, UNSPECIFIED (10) CAD (coronary artery disease) Current Visit: Yes Status: Acute Code(s): I25.10 - ATHSCL HEART DISEASE OF [place] CORONARY ARTERY W/O ANG PCTRS (11) Yeast dermatitis Current Visit: Yes Status: Acute Code(s): B37.2 - CANDIDIASIS OF SKIN AND NAIL <FELICITA VERDE - Last Filed: 04/21/24 11:16> LY Encounter - LY Encounter Attestation LY Encounter Attestation: "Ihjose luispersonallysstephonexMORAIMA Godoy andhannahiscussed pertinent aspects of their care with Felicita Verde and agree with the history, physical exam (any modifications based on my personal exam will be noted below), assessment, and plan as outlined in original note. Please see immediately below for my summary of findings and additional assessment and plan along with any meaningful corrections/explanations to the Subjective/Objective portions of the LY note will be noted." My portion of the encounter took place via telemedicine. -Patient admitted with septic shock secondary to UTI, off of levophed as of yesterday. Continue IV antibiotics for now given severity on presentation. Saul row based on culture results. <MARIBELL BURGESS - Last Filed: 04/21/24 21:33>
[2024-04-21 06:29] LABS: Absolute Neutrophil Ct (ANC) 4.25 x10^3/uL (1.56-6.13); BASOPHIL % 0.3 % (0.1-1.2); Basophil (Absolute #) 0.02 x10^3/uL (0.01-0.08); Eosinophil % 1.3 % (0.7-5.8); Eosinophil (Absolute #) 0.08 x10^3/uL (0.04-0.36); Hemoglobin 9.8 g/dL (11.2-15.7); IMMATURE GRAN # 0.02 x10^3u/L (0.001-0.031); IMMATURE GRAN % 0.3 % (0.001-0.429); Lymphocyte (Absolute #) 1.38 x10^3/uL (1.18-3.74); Lymphocytes % 22.4 % (19.3-51.7); Mean Cell Volume 100.3 fL (79.4-94.8); Mean Corpuscular Hemoglobin 31.7 pg (25.6-32.2); Mean Corpuscular Hgb Concent. 31.6 g/dL (32.2-35.5); Mean Platelet Volume 10.5 fL (9.4-12.3); Monocyte (Absolute #) 0.42 x10^3/uL (0.24-0.86); Monocytes % 6.8 % (4.7-12.5); Neutrophil % 68.9 % (34.0-71.1); Platelet Count 140 x10^3/uL (182-369); Red Blood Count 3.09 x10^6/uL (3.93-5.22); White Blood Count 6.2 x10^3/uL (3.98-10.04)
[2024-04-21 07:17] LABS: ALBUMIN 2.8 g/dL (3.5-5.0); Calcium 8.1 mg/dL (8.4-10.2); Creatinine 1 1.29 mg/dL (0.52-1.04); Potassium 3.7 mmol/L (3.5-5.1); Total Protein 5.8 g/dL (6.3-8.2)
[2024-04-21] MEDS: VITAMIN D PO SCH (09:02)
[2024-04-21] MEDS: Calcium 500MG W/Vit D Tablet PO SCH (09:02)
[2024-04-21] MEDS: SYNTHROID 25 MCG PO SCH (09:03)
[2024-04-21] MEDS: THERAGRAN MULTIVITAMIN PO SCH (09:03)
[2024-04-21] MEDS: ZYLOPRIM 100 MG PO SCH (09:03)
[2024-04-21] MEDS ORDERED: NON-FORMULARY ITEM (Levothyroxine Sodium [Levothyroxine Sodium] 25 MCG Capsule) PO SCH (10:00)
[2024-04-21] MEDS ORDERED: NON-FORMULARY ITEM (Rivaroxaban [Xarelto] 15 MG Tablet) PO SCH (10:00)
[2024-04-21] MEDS ORDERED: NON-FORMULARY ITEM (Potassium Chloride [Potassium Chloride] 20 MEQ Tab.Er.Prt) PO SCH (10:00)
[2024-04-21] MEDS ORDERED: NON-FORMULARY ITEM (Multivitamin [Multi-Vitamin Daily] 1 EACH Tablet) PO SCH (10:00)
[2024-04-21] MEDS ORDERED: Protonix 40MG Tablet PO SCH (10:00)
[2024-04-21] MEDS ORDERED: NON-FORMULARY ITEM (Ubidecarenone/Vit E Acet [Co Q-10 100 Mg Softgel] 1 EACH Capsule) PO SCH (10:00)
[2024-04-21] MEDS ORDERED: VITAMIN D PO SCH (10:00)
[2024-04-22 04:31] VITALS: TEMP 96.8
[2024-04-22 04:59] LABS: Absolute Neutrophil Ct (ANC) 2.41 x10^3/uL (1.56-6.13); BASOPHIL % 0.2 % (0.1-1.2); Basophil (Absolute #) 0.01 x10^3/uL (0.01-0.08); Eosinophil % 1.2 % (0.7-5.8); Eosinophil (Absolute #) 0.05 x10^3/uL (0.04-0.36); Hematocrit 30.2 % (34.1-44.9); Hemoglobin 9.8 g/dL (11.2-15.7); IMMATURE GRAN # 0.01 x10^3u/L (0.001-0.031); IMMATURE GRAN % 0.2 % (0.001-0.429); Lymphocytes % 29.3 % (19.3-51.7); Mean Cell Volume 96.8 fL (79.4-94.8); Mean Corpuscular Hemoglobin 31.4 pg (25.6-32.2); Mean Corpuscular Hgb Concent. 32.5 g/dL (32.2-35.5); Mean Platelet Volume 10.3 fL (9.4-12.3); Monocyte (Absolute #) 0.41 x10^3/uL (0.24-0.86); Neutrophil % 59.1 % (34.0-71.1); Platelet Count 156 x10^3/uL (182-369); Red Blood Count 3.12 x10^6/uL (3.93-5.22); Red Cell Distribution Width 14.7 % (11.7-14.4); White Blood Count 4.1 x10^3/uL (3.98-10.04)
[2024-04-22 05:38] LABS: ALBUMIN 2.8 g/dL (3.5-5.0); ANION GAP 7.9 MEQ/L (5-15); BILIRUBIN,TOTAL 0.6 mg/dL (0.2-1.3); Calcium 8.3 mg/dL (8.4-10.2); Creatinine 1 1.06 mg/dL (0.52-1.04); EST GLOMERULAR FILTRATION RATE 54.4 ML/MIN; Potassium 4.1 mmol/L (3.5-5.1); Total Protein 5.9 g/dL (6.3-8.2)
[2024-04-22 08:45] VITALS: RESP 21; O2SAT 98
--- NOTE | 2024-04-22 09:47 | PCM.DS ---
Discharge Summary Date of Admission: 04/20/24 08:33 Date of Discharge: 04/22/24 Admitting Physician: MARIBELL BURGESS MD Consults: Consults on Case 04/20/24 12:26 Consult Podiatry ROUTINE Primary Care Provider: [facility] Allergies Allergies oxycodone Allergy (Severe, Verified 12/24/23 07:56) Itching Hospital Summary - Hospital Course Hospital Course: 04/22/24 is a 78 year old female with pmhx of migraines, TIA, HLD, CHF, CAD, anemia, HTN, AFIB, DMII, crohns, and DDD. She presented to ED 04/20/24 from [facility] with complaints of generalized weakness and fever. Patient reports symptoms started 04/20/24. Patient was found to be hypotensive, tachycardic, and febrile at the nursing facility and was brought in for evaluation. Denied ,cough, sob, cp, abdominal pain, LINARES, dizziness, N/V/D. Upon arrival patient was febrile, hypotensive and tachycardic. CXR showing non-acute chest with chronic features. Lab findings remarkable for leukocytosis at 10.5, macrocytic anemia at 10.3, and creat at 1.12 (baseline around 0.8). Patient received fluid bolus, zosyn, and placed on levophed drip. Admitted to ICU for urosepsis. Zosyn started IV. Levophed stopped yesterday. BP and HR stable since. UC showed E-coli , and ESBL +. Labs and vitals are overall improved today. She is lives at [facility]. Plan is to d/c today with Bactrim. She denies any further concerns at this time. - Vitals & Intake/Output Vital Signs: Vital Signs Temperature 96.8 F 04/22/24 04:00 Pulse Rate 67 04/22/24 08:00 Respiratory Rate 21 04/22/24 07:40 Blood Pressure 151/67 04/22/24 07:40 O2 Sat by Pulse Oximetry 98 04/22/24 07:40 Intake & Output: Intake & Output 04/19/24 04/20/24 04/21/24 04/22/24 11:59 11:59 11:59 11:59 Intake Total 2070 1471 Output Total 1060 200 Balance 1010 1271 Weight 123.8 kg - Lab Result Diagrams: 04/22/24 04:45 04/22/24 04:45 Lab Results-Last 24 Hrs: Lab Results-Last 24 Hours 04/21/24 04/21/24 04/21/24 Range/Units 06:30 11:32 16:46 WBC (3.98-10.04) x10^3/uL RBC (3.93-5.22) x10^6/uL Hgb (11.2-15.7) g/dL Hct (34.1-44.9) % MCV (79.4-94.8) fL MCH (25.6-32.2) pg MCHC (32.2-35.5) g/dL RDW (11.7-14.4) % Plt Count (182-369) x10^3/uL MPV (9.4-12.3) fL Gran % (34.0-71.1) % Immature Gran % (Auto) (0.001-0.429) % Nucleat RBC Rel Count (0.00-0.2) % Eos # (Auto) (0.04-0.36) x10^3/uL Immature Gran # (Auto) (0.001-0.031) x10^3u/L Absolute Lymphs (auto) (1.18-3.74) x10^3/uL Absolute Monos (auto) (0.24-0.86) x10^3/uL Absolute Nucleated RBC (0.00-0.012) x10^3u/L Lymphocytes % (19.3-51.7) % Monocytes % (4.7-12.5) % Eosinophils % (0.7-5.8) % Basophils % (0.1-1.2) % Absolute Granulocytes (1.56-6.13) x10^3/uL Basophils # (0.01-0.08) x10^3/uL Sodium (135-145) mmol/L Potassium (3.5-5.1) mmol/L Chloride (98-107) mmol/L Carbon Dioxide (22-30) mmol/L Anion Gap (5-15) MEQ/L BUN (7-17) mg/dL Creatinine (0.52-1.04) mg/dL Estimated GFR ML/MIN Glucose (74-106) mg/dL POC Glucometer 192 H 125 H (74 to 106) mg/dL Hemoglobin A1c 7.01 H (4.5-6.0) % Calcium (8.4-10.2) mg/dL Total Bilirubin (0.2-1.3) mg/dL AST (14-36) U/L ALT (0-35) U/L Alkaline Phosphatase (38-126) U/L Serum Total Protein (6.3-8.2) g/dL Albumin (3.5-5.0) g/dL 04/21/24 04/22/24 04/22/24 Range/Units 22:19 04:45 04:45 WBC 4.1 (3.98-10.04) x10^3/uL RBC 3.12 L (3.93-5.22) x10^6/uL Hgb 9.8 L (11.2-15.7) g/dL Hct 30.2 L (34.1-44.9) % MCV 96.8 H (79.4-94.8) fL MCH 31.4 (25.6-32.2) pg MCHC 32.5 (32.2-35.5) g/dL RDW 14.7 H (11.7-14.4) % Plt Count 156 L (182-369) x10^3/uL MPV 10.3 (9.4-12.3) fL Gran % 59.1 (34.0-71.1) % Immature Gran % (Auto) 0.2 (0.001-0.429) % Nucleat RBC Rel Count 0.0 (0.00-0.2) % Eos # (Auto) 0.05 (0.04-0.36) x10^3/uL Immature Gran # (Auto) 0.01 (0.001-0.031) x10^3u/L Absolute Lymphs (auto) 1.20 (1.18-3.74) x10^3/uL Absolute Monos (auto) 0.41 (0.24-0.86) x10^3/uL Absolute Nucleated RBC 0.00 (0.00-0.012) x10^3u/L Lymphocytes % 29.3 (19.3-51.7) % Monocytes % 10.0 (4.7-12.5) % Eosinophils % 1.2 (0.7-5.8) % Basophils % 0.2 (0.1-1.2) % Absolute Granulocytes 2.41 (1.56-6.13) x10^3/uL Basophils # 0.01 (0.01-0.08) x10^3/uL Sodium 137 (135-145) mmol/L Potassium 4.1 (3.5-5.1) mmol/L Chloride 105 (98-107) mmol/L Carbon Dioxide 28 (22-30) mmol/L Anion Gap 7.9 (5-15) MEQ/L BUN 21 H (7-17) mg/dL Creatinine 1.06 H (0.52-1.04) mg/dL Estimated GFR 54.4 ML/MIN Glucose 112 H (74-106) mg/dL POC Glucometer 130 H (74 to 106) mg/dL Hemoglobin A1c (4.5-6.0) % Calcium 8.3 L (8.4-10.2) mg/dL Total Bilirubin 0.60 (0.2-1.3) mg/dL AST 55 H (14-36) U/L ALT 51 H (0-35) U/L Alkaline Phosphatase 80 (38-126) U/L Serum Total Protein 5.9 L (6.3-8.2) g/dL Albumin 2.8 L (3.5-5.0) g/dL 04/22/24 Range/Units 07:42 WBC (3.98-10.04) x10^3/uL RBC (3.93-5.22) x10^6/uL Hgb (11.2-15.7) g/dL Hct (34.1-44.9) % MCV (79.4-94.8) fL MCH (25.6-32.2) pg MCHC (32.2-35.5) g/dL RDW (11.7-14.4) % Plt Count (182-369) x10^3/uL MPV (9.4-12.3) fL Gran % (34.0-71.1) % Immature Gran % (Auto) (0.001-0.429) % Nucleat RBC Rel Count (0.00-0.2) % Eos # (Auto) (0.04-0.36) x10^3/uL Immature Gran # (Auto) (0.001-0.031) x10^3u/L Absolute Lymphs (auto) (1.18-3.74) x10^3/uL Absolute Monos (auto) (0.24-0.86) x10^3/uL Absolute Nucleated RBC (0.00-0.012) x10^3u/L Lymphocytes % (19.3-51.7) % Monocytes % (4.7-12.5) % Eosinophils % (0.7-5.8) % Basophils % (0.1-1.2) % Absolute Granulocytes (1.56-6.13) x10^3/uL Basophils # (0.01-0.08) x10^3/uL Sodium (135-145) mmol/L Potassium (3.5-5.1) mmol/L Chloride (98-107) mmol/L Carbon Dioxide (22-30) mmol/L Anion Gap (5-15) MEQ/L BUN (7-17) mg/dL Creatinine (0.52-1.04) mg/dL Estimated GFR ML/MIN Glucose (74-106) mg/dL POC Glucometer 113 H (74 to 106) mg/dL Hemoglobin A1c (4.5-6.0) % Calcium (8.4-10.2) mg/dL Total Bilirubin (0.2-1.3) mg/dL AST (14-36) U/L ALT (0-35) U/L Alkaline Phosphatase (38-126) U/L Serum Total Protein (6.3-8.2) g/dL Albumin (3.5-5.0) g/dL Micro Results-Entire Visit: Microbiology 04/20/24 04:40 Urine Culture - Final Catherized Escherichia Coli 04/20/24 05:10 Blood Culture - Preliminary Blood 04/20/24 05:05 Blood Culture - Preliminary Blood Accuchecks Date 04/22/24 Date 04/21/24 Date 04/21/24 Date 04/21/24 Time 22:19 Time 16:58 Time 11:47 - Procedures and Test Procedures and Tests throughout Hospitalization: Therapy Orders & Screens 04/20/24 13:44 OT Screen per Nursing Assess ONCE Comment: Protocol Order Physician Instructions: Greater than 3 points order OT Admission Screening Reason For Exam: Triggered on Admission Diagnosis: hypotension/tachy/fever Open Wound/Cellutlitis/Pressure Ulcers: Yes Acute Fx/ORIF/Change in wt bearing status: No Severe MUSCULOSKELETAL pain: No ADL Dysfunction: Yes Acute CVA w/Hemiparesis/Hemiplegia: No Decreased Functional Mobility/Strength: Yes Sprain/Strain: No Acute Post-op Mobility Dysfunction: No Total Points: 9 PT Screen per Nursing Assess ONCE Comment: Protocol Order Physician Instructions: Greater than 3 points order PT Admission Screenin Reason For Exam: Triggered on Admission Diagnosis: hypotension/tachy/fever Open Wound/Cellutlitis/Pressure Ulcers: Yes Acute Fx/ORIF/Change in wt bearing status: No Severe MUSCULOSKELETAL pain: No ADL Dysfunction: Yes Acute CVA w/Hemiparesis/Hemiplegia: No Decreased Functional Mobility/Strength: Yes Sprain/Strain: No Acute Post-op Mobility Dysfunction: No Total Points: 9 RT Screen per Nursing Assess ONCE Comment: Protocol Order Physician Instructions: Greater than 3 points order RT Admission Screen Reason For Exam: Triggered on Admission Diagnosis: hypotension/tachy/fever Diagnosis: hypotension/tachy/fever Pneumonia: No Home O2: No Asthma: No CHF: Yes Home CPAP/BIPAP: Yes Home Nebs/MDI: No Total Points: 8 ST Screen per Nursing Assess ONCE Comment: Protocol Order Physician Instructions: Greater than [address] Admission Screening Reason For Exam: Triggered on Admission Diagnosis: hypotension/tachy/fever CVA/Dyshpagia/Aphasia: Yes Cognitive Deficits: No Dehydration/Nutrition Deficit: No Reflux: No Oral-Motor Difficulties: No Pneumonia: No Long-Term Resident: Yes Total Points: 10 04/20/24 14:41 BiPap/CPAP ROUTINE Comment: Diagnosis: hypotension/tachy/fever Discharge Exam General Appearance: no apparent distress, alert, obese Neurologic Exam: alert, oriented x 3, cooperative, normal mood/affect, nml cerebellar function, sensation nml, No motor deficits Eye Exam: PERRL, EOMI, eyes nml inspection Ears, Nose, Throat Exam: normal ENT inspection, pharynx normal, moist mucous membranes Neck Exam: normal inspection, non-tender, supple, full range of motion Respiratory Exam: normal breath sounds, lungs clear, No respiratory distress Cardiovascular Exam: regular rate/rhythm, normal heart sounds Gastrointestinal/Abdomen Exam: soft, No tenderness, No mass Pelvic Exam: deferred Rectal Exam: deferred Back Exam: normal inspection, normal range of motion, No CVA tenderness, No vertebral tenderness Extremity Exam: normal inspection, normal range of motion Skin Exam: normal color, warm, dry Wound Assessment: Skin/Wound Assessment Wound/Incision Assessment Start: 04/20/24 13:44 Text: Status: Active Freq: Q6H Protocol: Document 04/22/24 08:00 JV (Rec: 04/22/24 08:47 JV [id number]) Wound/Incision Assessment Perineum Wound Assessment Shift Assessment Wound Type shearing General Appearance Open to air Comment barrier cream applied prn Left Lower leg Wound Assessment Shift Assessment Wound Stage Non Pressure Wound Dressing Status Dry & Intact Drainage Amount None General Appearance Clean/Dry,Reddened Primary Dressing tubigrip Comment per Dr. Marc brown true Right Lower Leg Wound Assessment Shift Assessment Wound Type venous stasis ulcers Wound Stage Non Pressure Wound Dressing Status Dry & Intact Drainage Amount None General Appearance Reddened Wound Bed Greatest Portion Dusky Red Surrounding Tissue [place] Primary Dressing mepilex Secondary Dressing tubigrip Comment per Dr. Marc brown true Bilateral Abdominal/Groin folds Wound Assessment Shift Assessment Wound Type yeast growth & redness in skin folds Wound Stage Non Pressure Wound General Appearance Open to air,Reddened Surrounding Tissue [place] Comment Nystatin powder applied as ordered Bilateral axilla/breast folds Wound Assessment Shift Assessment Wound Type reddened skin folds Wound Stage Non Pressure Wound General Appearance Open to air,Reddened Surrounding Tissue [place] Comment Nystatin powder applied as ordered Wound Photo Photo Taken No Final Diagnosis/Problem List - Final Discharge Diagnosis/Problem (1) Sepsis Current Visit: Yes Status: Acute Assessment & Plan: - + urosepsis- in ICU on Tele - IV Zosyn - BC + ESBL and e-coli - D/C with Bactrim per sensitivity results - Levophed d/c's 04/22/24 - WBC WNL (2) UTI (urinary tract infection) Current Visit: Yes Status: Acute Assessment & Plan: - UC + E-coli, ESBL - IV zosyn IP - D/C with Bactrim per sensitivity results Code(s): N39.0 - URINARY TRACT INFECTION, SITE NOT SPECIFIED (3) ELIS (acute kidney injury) Current Visit: Yes Status: Acute Assessment & Plan: - Creat 1.06, BL 1.01- near baseline- improved Code(s): N17.9 - ACUTE KIDNEY FAILURE, UNSPECIFIED (4) CAD (coronary artery disease) Current Visit: Yes Status: Chronic Assessment & Plan: -with stent placement -continue home meds Code(s): I25.10 - ATHSCL HEART DISEASE OF [place] CORONARY ARTERY W/O ANG PCTRS (5) History of TIA (transient ischemic attack) Current Visit: Yes Status: Chronic Assessment & Plan: -H/o TIA and baseline dementia - continue home meds - Lives at [facility] Code(s): Z86.73 - PRSNL HX OF TIA (TIA), AND CEREB INFRC W/O RESID DEFICITS (6) Yeast dermatitis Current Visit: Yes Status: Acute Assessment & Plan: - Nystatin powder- continue OP Code(s): B37.2 - CANDIDIASIS OF SKIN AND NAIL (7) Anemia Current Visit: No Status: Chronic Assessment & Plan: - Fe+ def anemia -at baseline - on iron supplementation- monitor Code(s): D64.9 - ANEMIA, UNSPECIFIED (8) Afib Current Visit: No Status: Chronic Assessment & Plan: -continue metoprolol/xarelto -Pacemaker Code(s): I48.91 - UNSPECIFIED ATRIAL FIBRILLATION (9) CHF (congestive heart failure) Current Visit: No Status: Chronic Assessment & Plan: -CXR with no acute cardiopulmonary findings -No echo on file - follows with Dr. More Code(s): I50.9 - HEART FAILURE, UNSPECIFIED (10) Diabetes mellitus type II, controlled Current Visit: No Status: Chronic Assessment & Plan: -ADA mechanical soft diet -SSI /glargine -A1c- 04/21/24 7.01- controlled Code(s): E11.9 - TYPE 2 DIABETES MELLITUS WITHOUT COMPLICATIONS (11) Hypothyroid Current Visit: No Status: Chronic Assessment & Plan: -continue levothyroxine -check TSH level- 1.150- WNL Code(s): E03.9 - HYPOTHYROIDISM, UNSPECIFIED (12) Morbid obesity with BMI of 45.0-49.9, adult Current Visit: Yes Status: Chronic Assessment & Plan: - advised ADA diet and exercise control Code(s): E66.01 - MORBID (SEVERE) OBESITY DUE TO EXCESS CALORIES; Z68.42 - BODY MASS INDEX [BMI] 45.0-49.9, ADULT - Discharge Discharge Date: 04/22/24 Disposition: Home, Self-Care Condition: Fair Prescriptions: New Nystatin Powder 15 gm [Nystop Powder 15 gm] 1 gm TP BID 7 Days #1 unit Smz/Tmp Ds Tablet [Bactrim Ds Tablet] 1 udtab PO BID 10 Days #20 tablet Continue Aspirin EC 81 mg [Ecotrin 81 mg] 81 mg PO QHS Metoprolol Tartrate 25 mg PO BID Furosemide 60 mg PO DAILY Atorvastatin Calcium 80 mg PO QHS Duloxetine HCl 30 mg PO DAILY Rivaroxaban [Xarelto] 20 mg PO DAILY Pramipexole Di-HCl [Pramipexole Dihydrochloride] 1 mg PO TID Melatonin 3 mg PO QHS Pregabalin 50 mg [Lyrica 50MG] 50 mg PO TID Loperamide HCl 2 mg [Imodium 2 mg] 2 mg PO Q6H PRN PRN PRN Reason: Diarrhea Insulin Glargine,Hum.rec.anlog [Lantus] 15 unit SQ QHS Allopurinol 100 mg [Zyloprim 100 mg] 100 mg PO DAILY Divalproex Sodium ER 250 mg [Depakote EXTENDED RELEASE 250 MG] 750 mg PO DAILY Duloxetine HCl 30 mg [Cymbalta 30 MG Capsule] 60 mg PO DAILY Exenatide Microspheres [Bydureon Bcise] 2 mg SQ UD Ferrous Sulfate 325 mg [Feosol 325 mg] 650 mg PO DAILY Levothyroxine Sodium 25 mcg PO DAILY Ubidecarenone/Vit E Acet [Co Q-10 100 mg Softgel] 1 ea PO DAILY Multivitamin [Multi-Vitamin Daily] 1 each PO DAILY Furosemide 40 mg PO EVENING MEAL Lipase/Protease/Amylase [Creon Dr 24,000 Unit Capsule] 1 cap PO TIDWMEALS Acetaminophen 325 mg [Tylenol 325 mg] 650 mg PO Q6H PRN PRN PRN Reason: Pain Nystatin Powder 15 gm [Nystop Powder 15 gm] 15 gm TP BID Propranolol HCl [Inderal ] 30 mg PO DAILY Potassium Chloride 20 mg PO DAILY Oxybutynin Chloride Xl 5 mg [Ditropan XL 5 MG] 5 mg PO EVENING MEAL Loratadine 10 mg [Claritin 10 mg] 10 mg PO HS Carboxymethylcellulose Sodium [Artificial Tears] 1 unit OP TID Cholecalciferol (Vitamin D3) [Vitamin D] 5,000 units PO DAILY Calcium Carbonate/Vitamin D3 [Calcium 500 mg-Vit D3 5 Mcg Tb] 1 each PO DAILY Linaclotide [Linzess] 72 mcg PO DAILY glucagon HCL [Glucagon Emergency Kit] 1 mg SQ UD PRN PRN Reason: Hypoglycemia Follow up with: XIANG,XIANG [Primary Care Provider] -
[2024-04-22 12:14] VITALS: BP 145/79; PULSE 63
--- NOTE | 2024-04-23 15:18 | PCM.CONS ---
Podiatry HPI - Consult Date of Consultation Date: 04/22/24 Reason for Consult: lower extremity ulcerations RLE. Venous insufficency. Consulting Provider: KRIS LOOMIS DPM - [facility] History of Present Illness: is a 78 year old female. Medications & Allergies Home Medications: Home Medication List Aspirin EC 81 mg [Ecotrin 81 mg] 81 mg PO QHS 04/17/22 [History Confirmed 04/20/24] Atorvastatin Calcium 80 mg PO QHS 04/17/22 [History Confirmed 04/20/24] Duloxetine HCl 30 mg PO DAILY 04/17/22 [History Confirmed 04/20/24] Furosemide 60 mg PO DAILY 04/17/22 [History Confirmed 04/20/24] Metoprolol Tartrate 25 mg PO BID 04/17/22 [History Confirmed 04/20/24] Pramipexole Di-HCl [Pramipexole Dihydrochloride] 1 mg PO TID 04/17/22 [History Confirmed 04/20/24] Rivaroxaban [Xarelto] 20 mg PO DAILY 04/17/22 [History Confirmed 04/20/24] Insulin Glargine,Hum.rec.anlog [Lantus] 15 unit SQ QHS 05/26/23 [History Confirmed 04/20/24] Loperamide HCl 2 mg [Imodium 2 mg] 2 mg PO Q6H PRN PRN 05/26/23 [History Confirmed 04/20/24] Melatonin 3 mg PO QHS 05/26/23 [History Confirmed 04/20/24] Pregabalin 50 mg [Lyrica 50MG] 50 mg PO TID 05/26/23 [History Confirmed 04/20/24] Allopurinol 100 mg [Zyloprim 100 mg] 100 mg PO DAILY 06/24/23 [History Confirmed 04/20/24] Acetaminophen 325 mg [Tylenol 325 mg] 650 mg PO Q6H PRN PRN 12/24/23 [History Confirmed 04/20/24] Divalproex Sodium ER 250 mg [Depakote EXTENDED RELEASE 250 MG] 750 mg PO DAILY 12/24/23 [History Confirmed 04/20/24] Duloxetine HCl 30 mg [Cymbalta 30 MG Capsule] 60 mg PO DAILY 12/24/23 [History Confirmed 04/20/24] Exenatide Microspheres [Bydureon Bcise] 2 mg SQ UD 12/24/23 [History Confirmed 04/20/24] Ferrous Sulfate 325 mg [Feosol 325 mg] 650 mg PO DAILY 12/24/23 [History Confirmed 04/20/24] Furosemide 40 mg PO EVENING MEAL 12/24/23 [History Confirmed 04/20/24] Levothyroxine Sodium 25 mcg PO DAILY 12/24/23 [History Confirmed 04/20/24] Lipase/Protease/Amylase [[place]vis [place]illo 24,000 Unit Capsule] 1 cap PO TIDWMEALS 12/24/23 [History Confirmed 04/20/24] Multivitamin [Multi-Vitamin Daily] 1 each PO DAILY 12/24/23 [History Confirmed 04/20/24] Nystatin Powder 15 gm [Nystop Powder 15 gm] 15 gm TP BID 12/24/23 [History Confirmed 04/20/24] Ubidecarenone/Vit E Acet [Co Q-10 100 mg Softgel] 1 ea PO DAILY 12/24/23 [History Confirmed 04/20/24] Calcium Carbonate/Vitamin D3 [Calcium 500 mg-Vit D3 5 Mcg Tb] 1 each PO DAILY 04/20/24 [History Confirmed 04/20/24] Carboxymethylcellulose Sodium [Artificial Tears] 1 unit OP TID 04/20/24 [History Confirmed 04/20/24] Cholecalciferol (Vitamin D3) [Vitamin D] 5,000 units PO DAILY 04/20/24 [History Confirmed 04/20/24] Linaclotide [Linzess] 72 mcg PO DAILY 04/20/24 [History Confirmed 04/20/24] Loratadine 10 mg [Claritin 10 mg] 10 mg PO HS 04/20/24 [History Confirmed 04/20/24] Oxybutynin Chloride Xl 5 mg [Ditropan XL 5 MG] 5 mg PO EVENING MEAL 04/20/24 [History Confirmed 04/20/24] Potassium Chloride 20 mg PO DAILY 04/20/24 [History Confirmed 04/20/24] Propranolol HCl [Inderal ] 30 mg PO DAILY 04/20/24 [History Confirmed 04/20/24] glucagon HCL [Glucagon Emergency Kit] 1 mg SQ UD PRN 04/20/24 [History Confirmed 04/20/24] Nystatin Powder 15 gm [Nystop Powder 15 gm] 1 gm TP BID 7 Days #1 unit 04/22/24 [Rx] Smz/Tmp Ds Tablet [Bactrim Ds Tablet] 1 udtab PO BID 10 Days #20 tablet 04/22/24 [Rx] Allergies/Adverse Reactions: Allergies Allergy/AdvReac Type Severity Reaction Status Date / Time oxycodone Allergy Severe Itching Verified 12/24/23 07:56 - Past Medical History Past Medical History: Yes Neurological History: Migraines, TIA, Other ENT History: No Pertinent History Cardiac History: High Cholesterol, Hypertension, Other Respiratory History: No Pertinent History Endocrine Medical History: Diabetes Type II Musculoskelatal History: No Pertinent History, Degenerative Disk Disease GI Medical History: Crohns Disease, Irritable Bowel History: No Pertinent History Pyscho-Social History: No Pertinent History Reproductive Disorders: No Pertinent History Comment: NEUROPATHY - Past Surgical History Past Surgical History: Yes Neuro Surgical History: No Pertinent History Cardiac History: Pacemaker Respiratory Surgery: No Pertinent History GI Surgical History: Appendectomy, Cholecystectomy Genitourinary Surgical Hx: No Pertinent History Musculskeletal Surgical Hx: Joint Replacement, Orthopedic Surgery Female Surgical History: No Pertinent History Other Surgical History: BARIATRIC SURG,CARPAL TUNNEL - Social History Smoking Status: Never smoker Exposure to second hand smoke: No Alcohol: None Drug Use: none - Social Determinants of Health Will the patient participate in the screening: Unable to obtain Do you worry about a steady place to live?: No Do you have any problems with any of the following?: No known problems In the past 12 months,have you had to go without utilities?: No Have you or anyone in your house had to go without enough: No Transportation Issues: No Has anyone in your support network made you feel unsafe?: No Comment: Living at [facility] Physical Exam - Narrative Narrative Physical Exam: Podiatry Physical Exam Results - Labs Lab/Micro Results: Microbiology 04/20/24 04:40 Urine Culture - Final Catherized Escherichia Coli 04/20/24 05:10 Blood Culture - Preliminary Blood 04/20/24 05:05 Blood Culture - Preliminary Blood Assessment/Plan (1) Type 2 diabetes mellitus Status: Chronic Qualifiers: (2) Bilateral lower leg cellulitis Status: Chronic Code(s): L03.116 - CELLULITIS OF LEFT LOWER LIMB; L03.115 - CELLULITIS OF RIGHT LOWER LIMB (3) Diabetes mellitus type II, controlled Status: Chronic Qualifiers: Diabetes mellitus long-term insulin use: with extermination inspector use Diabetes mellitus complication status: with skin complications Diabetes mellitus complication detail: with foot ulcer Qualified Code(s): E11.621 - Type 2 diabetes mellitus with foot ulcer; L97.509 - Non-pressure chronic ulcer of other part of unspecified foot with unspecified severity; Z79.4 - senior living (current) use of insulin Code(s): E11.9 - TYPE 2 DIABETES MELLITUS WITHOUT COMPLICATIONS (4) Localized edema due to fluid overload Status: Acute Assessment & Plan: Patient examination and evaluation No increase leg pain or calf pain bilaterally Wounds debrided to the bilateral lower extremity as described in the procedure section of the note Unna boots applied to the bilateral lower extremity. Follow up 1 week Code(s): E87.70 - FLUID OVERLOAD, UNSPECIFIED (5) CHF (congestive heart failure) Status: Chronic Code(s): I50.9 - HEART FAILURE, UNSPECIFIED
== END 2024-04-22 15:17 | DRG 872 ==
LOC: ED 04:34 → ICU 08:33
PROVIDERS: ADMIT Internal Medicine; ATTEND Internal Medicine
PROC: 2W1MX6Z Compression of Left Lower Extremity using Pressure Dressing (ICD-10-PCS; principal; 2024-04-22)
PROC: 2W1LX6Z Compression of Right Lower Extremity using Pressure Dressing (ICD-10-PCS; 2024-04-22)
PROC: 0J9P0ZZ Drainage of Left Lower Leg Subcutaneous Tissue and Fascia, Open Approach (ICD-10-PCS; 2024-04-22)
PROC: 0J9N0ZZ Drainage of Right Lower Leg Subcutaneous Tissue and Fascia, Open Approach (ICD-10-PCS; 2024-04-22)
DX: A41.9 Sepsis, unspecified organism (principal); N39.0 Urinary tract infection, site not specified; N17.9 Acute kidney failure, unspecified; Z68.42 Body mass index [BMI] 45.0-49.9, adult; L03.115 Cellulitis of right lower limb; L03.116 Cellulitis of left lower limb; B96.20 Unspecified Escherichia coli [E. coli] as the cause of diseases classified elsewhere; I25.10 Atherosclerotic heart disease of native coronary artery without angina pectoris; Z86.73 Personal history of transient ischemic attack (TIA), and cerebral infarction without residual deficits; B37.2 Candidiasis of skin and nail; D64.9 Anemia, unspecified; I48.91 Unspecified atrial fibrillation; I11.0 Hypertensive heart disease with heart failure; I50.9 Heart failure, unspecified; E11.9 Type 2 diabetes mellitus without complications; E11.621 Type 2 diabetes mellitus with foot ulcer; E03.9 Hypothyroidism, unspecified; E66.01 Morbid (severe) obesity due to excess calories; Z79.01 Long term (current) use of anticoagulants; Z79.899 Other long term (current) drug therapy; Z79.4 Long term (current) use of insulin
CPT/HCPCS: 0241U; 10140; 29580; 36000; 36415; 71045; 80053; 80164; 81001; 82947; 83036; 83605; 83880; 84134; 84443; 85025; 86308; 87040; 87077; 87086; 87186; 87651; 93041; 94660; 94760; 96365; 96374; 99291; P9612; Q3014; 99222; 99284; J1817; J2405; J2543; A9270-GY

== ENCOUNTER 2025-05-02 19:46 | Inpatient (IN) | payer MEDICARE, OTHER ==
--- NOTE | 2025-05-02 20:00 | ERPHSYRPT ---
- History of Present Illness Time Seen by Provider: 05/02/25 19:50 Source: patient, EMS, old records Exam Limitations: clinical condition Patient Subjective Stated Complaint: "I feel short of breath". EMS states, "She lives at [facility] and they said she had a scope procedure done today in surgery and they noticed she was short of breath and her oxygen saturations were in the 60s. When we arrived, her oxygen saturations were in the 80s on a nasal cannula. We put her on a non-rebreather and her sats came up to 100%. She denies any chest pain, just feeling short of breath". Triage Nursing Assessment: Pt presents to ER via ambulance from local [facility] with complaints of shortness of breath. Pt states she had an upper GI scope today. alf staff reported to EMS her Spo2 was in the 60s on room air. Pt appears short of breath. Respirations are shallow and tachypneic. Lung sounds are clear throughout. Pt appears drowsy. Denies any pain. She has some noted dressings on bilateral lower extermities, wrapped in coban. Pt skin is pink, warm, and dry. Arrived on NRB, switched to 3L via NC and o2 sats remain in the upper 90s. Physician History: This is a morbidly obese 79-year-old white female patient resident of [facility] and presents to the emergency department transported by the paramedics secondary to shortness of breath and hypoxia. At that facility, the room air oxygen saturation level was 60%. Patient was placed on 2 L of oxygen via nasal cannula and that increased to 86%. The head waitress service was contacted and on arrival she was placed on 10 L nonrebreather mas and her oxygen saturation level increased to 100%. Patient arrives to emergency department communicating. She denies chest pain. She denies abdominal pain. Today, 05/02/2025, procedure. I did review the patient's chart and there is no documentation at this time of any surgical procedure that was done today. Patient has multiple medical issues including insulin-dependent diabetes, hypothyroid, hypertension, seasonal allergies, seizure disorder, CHF, hyperlipidemia, gout, migraine headache, TIAs, patient takes Xarelto, irritable bowel syndrome, Crohn's disease, peripheral neuropathy and degenerative disc disease. Timing/Duration: today Activities at Onset: none Severity of Dyspnea-Max: mild Severity of Dyspnea-Current: mild Possible Cause: occasional episodes Modifying Factors: Improves With: oxygen, rest Associated Symptoms: ankle swelling, painful breathing (Bilateral and chronic), No chest pain/discomfort, No wheezing Allergies/Adverse Reactions: oxycodone Allergy (Severe, Verified 05/02/25 20:00) Itching Home Medications: Aspirin EC 81 mg [Ecotrin 81 mg] 81 mg PO QHS 04/17/22 [History] Atorvastatin Calcium 80 mg PO QHS 04/17/22 [History] Pramipexole Di-HCl [Pramipexole Dihydrochloride] 1 mg PO TID 04/17/22 [History] Insulin Glargine,Hum.rec.anlog [Lantus] 20 unit SQ BID 05/26/23 [History] Melatonin 3 mg PO QHS 05/26/23 [History] Allopurinol 100 mg [Zyloprim 100 mg] 100 mg PO DAILY 06/24/23 [History] Acetaminophen 325 mg [Tylenol 325 mg] 650 mg PO Q6H PRN PRN 12/24/23 [History] Levothyroxine Sodium 25 mcg PO DAILY 12/24/23 [History] Nystatin Powder 15 gm [Nystop Powder 15 gm] 15 gm TP BID 12/24/23 [History] Carboxymethylcellulose Sodium [Artificial Tears] 1 unit OP TID 04/20/24 [History] Loratadine 10 mg [Claritin 10 mg] 10 mg PO HS 04/20/24 [History] Propranolol HCl [Inderal ] 80 mg PO DAILY 04/20/24 [History] glucagon HCL [Glucagon Emergency Kit] 1 mg SQ UD PRN 04/20/24 [History] Sertraline HCl 100 mg PO HS 01/06/25 [History] Hydrocodone/Acetaminophen [Hydrocodone-Acetamin 5-325 mg] 1 tab PO Q4HPRN PRN MDD 6 03/17/25 [History] Rivaroxaban [Xarelto] 20 mg PO DAILY 03/17/25 [History] Bisacodyl 10 mg [Dulcolax 10 MG SUPP] 10 mg RC Q5D PRN 05/02/25 [History] Divalproex Sodium ER 250 mg [Depakote EXTENDED RELEASE 250 MG] 2 tab PO HS 05/02/25 [History] Dulaglutide [Trulicity] 0.75 mg SQ Q7D 05/02/25 [History] Fluticasone/Vilanterol [Breo Ellipta 200-25 Mcg INH] 1 each IH DAILY 05/02/25 [History] Furosemide 20 mg [Lasix 20 mg] 20 mg PO BID 05/02/25 [History] Furosemide 40 mg [Lasix 40 MG] 40 mg PO DAILY 05/02/25 [History] Gabapentin [Neurontin ] 300 mg PO TID 05/02/25 [History] Gentamicin 0.1% Cream [Gentamicin Sulfate 0.1% Cream] 1 applic TP BID 05/02/25 [History] Loperamide HCl 2 mg [Imodium 2 mg] 2 mg PO Q6H PRN PRN 05/02/25 [History] Lubiprostone [Amitiza] 8 mcg PO BID 05/02/25 [History] Magnesium Hydroxide [Milk of Magnesia] 10 ml PO DAILY PRN PRN 05/02/25 [History] Nitroglycerin 0.4 mg Tablet [Nitrostat 0.4 MG Tablet] 0.4 mg SL Q5MIN PRN MR X 3 PRN 05/02/25 [History] Ondansetron [Ondansetron Odt ] 4 mg PO Q8H PRN 05/02/25 [History] Pregabalin 50 mg [Lyrica 50MG] 50 mg PO TID 05/02/25 [History] Hx Tetanus, Diphtheria Vaccination/Date Given: Yes Hx Influenza Vaccination/Date Given: Yes Hx Pneumococcal Vaccination/Date Given: Yes Immunizations Up to Date: Yes Travel Risk - International Travel Have you traveled outside of the country in past 3 weeks: No - Emerging Infectious Disease Are you exhibiting symptoms associated with any current EIDs: No Symptoms: Fever - Review of Systems Constitutional: Weakness Eyes: No Symptoms Ears, Nose, & Throat: No Symptoms Respiratory: Dyspnea Cardiac: No Symptoms Abdominal/Gastrointestinal: No Symptoms Genitourinary Symptoms: No Symptoms Musculoskeletal: No Symptoms Skin: No Symptoms Neurological: No Symptoms Psychological: No Symptoms Endocrine: No Symptoms Hematologic/Lymphatic: No Symptoms Immunological/Allergic: No Symptoms All Other Systems: Reviewed and Negative - Past Medical History Pertinent Past Medical History: Yes Neurological History: Migraines, TIA, Other ENT History: No Pertinent History Cardiac History: High Cholesterol, Hypertension, Other Respiratory History: No Pertinent History Endocrine Medical History: Diabetes Type II Musculoskeletal History: No Pertinent History, Degenerative Disk Disease GI Medical History: Crohns Disease, Irritable Bowel History: No Pertinent History Psycho-Social History: No Pertinent History Female Reproductive Disorders: No Pertinent History Other Medical History: NEUROPATHY - Past Surgical History Past Surgical History: Yes Neuro Surgical History: No Pertinent History Cardiac: Pacemaker Respiratory: No Pertinent History Gastrointestinal: Appendectomy, Cholecystectomy Genitourinary: No Pertinent History Musculoskeletal: Joint Replacement, Orthopedic Surgery Female Surgical History: No Pertinent History Other Surgical History: BARIATRIC SURG,CARPAL TUNNEL - Social History Smoking Status: Never smoker Exposure to second hand smoke: No Drug Use: none - Social Determinants of Health Will the patient participate in the screening: Yes Do you worry about a steady place to live?: No Do you have any problems with any of the following?: No known problems In the past 12 months,have you had to go without utilities?: No Transportation Issues: No Has anyone in your support network made you feel unsafe?: No Have you or anyone in your house had to go w/o enough food: No - Nursing Vital Signs Nursing Vital Signs: Initial Vital Signs Temperature 97.9 F 05/02/25 19:47 Pulse Rate 96 H 05/02/25 19:47 Respiratory Rate 24 05/02/25 19:47 Blood Pressure 99/58 05/02/25 19:47 O2 Sat by Pulse Oximetry 98 05/02/25 19:47 Pain Scale Pain Intensity 0 - Physical Exam General Appearance: no apparent distress, alert, obese Eye Exam: PERRL/EOMI, eyes nml inspection Ears, Nose, Throat Exam: hearing grossly normal, normal ENT inspection, normal pharynx Neck Exam: normal inspection, non-tender, supple, full range of motion Respiratory Exam: normal breath sounds, lungs clear, airway intact, No chest tenderness, No respiratory distress Cardiovascular/Chest Exam: normal heart sounds, regular rate/rhythm Abdominal/Gastrointestinal Exam: soft, normal bowel sounds, No tenderness Rectal Exam: not done Extremity Exam: non-tender, normal range of motion, normal inspection, no calf tenderness, pelvis stable, pedal edema (Chronic bilateral foot and ankle) Neurologic Exam: alert, oriented x 3, cooperative, 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 No acute ischemia) Ordered Tests: Active Orders 24 hr Category Date Time Status Professor Of French STAT Care 05/02/25 20:02 Active EKG-ER Only STAT Care 05/02/25 20:01 Active IV Insertion STAT Care 05/02/25 20:01 Active Oxygen-ED Only Nasal Cannula 3 lpm Care 05/02/25 19:50 Active Pulse Oximetry (ED) STAT Care 05/02/25 20:01 Active CHEST 1 VIEW (PORTABLE) Stat Exams 05/02/25 20:01 Taken ARTERIAL BLOOD GASES Stat Lab 05/02/25 20:08 Completed BLOOD CULTURE Stat Lab 05/02/25 20:25 Received CBC W DIFF Stat Lab 05/02/25 20:20 Completed CMP Stat Lab 05/02/25 20:20 Completed Lactic Acid Stat Lab 05/02/25 20:08 Completed MAGNESIUM Stat Lab 05/02/25 20:20 Completed NT PRO BNPII Stat Lab 05/02/25 19:46 Completed TROPONIN Q4H Lab 05/02/25 19:46 Completed TROPONIN Q4H Lab 05/03/25 00:15 Ordered TROPONIN Q4H Lab 05/03/25 04:15 Ordered Respiratory Therapy Assessment DAILY RT 05/02/25 20:30 Active Medication Summary Generic Name Dose Route Start Last Admin Trade Name Freq PRN Reason Stop Dose Admin Ceftriaxone Sodium 1 gm in 100 mls @ 200 mls/hr 05/02/25 21:34 Rocephin 1 Gm / 100 Ml Nacl IV 05/02/25 22:03 STAT ONE Sodium Chloride 500 mls @ 500 mls/hr 05/02/25 21:36 Sodium Chloride 0.9% 500 Ml IV 05/02/25 22:35 .Q1H ONE Discontinued Medications Generic Name Dose Route Start Last Admin Trade Name Enedina PRN Reason Stop Dose Admin Albuterol/Ipratropium 3 ml 05/02/25 20:30 05/02/25 20:32 Ipratropium/Albuterol Sulfate 3 Ml Ampul.Neb IH 05/02/25 20:31 3 ml STAT ONE Administration Albuterol/Ipratropium Confirm 05/02/25 20:31 Ipratropium/Albuterol Sulfate 3 Ml Ampul.Neb Administered 05/02/25 20:32 Dose 3 ml IH .STK-MED ONE Furosemide 40 mg 05/02/25 21:33 Furosemide 40 Mg/4 Ml Vial IV 05/02/25 21:34 STAT ONE Furosemide Confirm 05/02/25 21:39 Furosemide 40 Mg/4 Ml Vial Administered 05/02/25 21:40 Dose 40 mg .ROUTE .STK-MED ONE Ceftriaxone Sodium Confirm 05/02/25 21:40 Rocephin 1 Gm / 100 Ml Nacl Administered 05/02/25 21:41 Dose 1 gm in 100 mls @ ud IV .STK-MED ONE Sodium Chloride Confirm 05/02/25 21:40 Sodium Chloride 0.9% 500 Ml Administered 05/02/25 21:41 Dose 500 mls @ ud IV .STK-MED ONE Lab/Rad Data: Laboratory Result Diagrams 05/02/25 20:20 05/02/25 20:20 Laboratory Results 05/02/25 05/02/25 05/02/25 Range/Units 20:30 20:20 20:20 WBC (3.98-10.04) x10^3/uL RBC (3.93-5.22) x10^6/uL Hgb (11.2-15.7) g/dL Hct (34.1-44.9) % MCV (79.4-94.8) fL MCH (25.6-32.2) pg MCHC (32.2-35.5) g/dL RDW (11.7-14.4) % Plt Count (182-369) x10^3/uL MPV (9.4-12.3) fL Gran % (34.0-71.1) % Immature Gran % (Auto) (0.001-0.429) % Nucleat RBC Rel Count (0.00-0.2) % Eos # (Auto) (0.04-0.36) x10^3/uL Immature Gran # (Auto) (0.001-0.031) x10^3u/L Absolute Lymphs (auto) (1.18-3.74) x10^3/uL Absolute Monos (auto) (0.24-0.86) x10^3/uL Absolute Nucleated RBC (0.00-0.012) x10^3u/L Lymphocytes % (19.3-51.7) % Monocytes % (4.7-12.5) % Eosinophils % (0.7-5.8) % Basophils % (0.1-1.2) % Absolute Granulocytes (1.56-6.13) x10^3/uL Basophils # (0.01-0.08) x10^3/uL Puncture Site pCO2 (35-45) mmHg pO2 (75-100) mmHg Base Excess (-2.0-2.0) O2 Saturation (94-100) g/dF ABG pH (7.35-7.45) ABG HCO3 (22-28) ABG O2 Sat (Measured) (95-100) % Francesco Test A-a Gradient a/A Ratio Hemoglobin Carboxyhemoglobin (0.0-6.9) % THgb Methemoglobin (1.4-1.5) % Potassium 4.3 (3.5-5.1) Temperature C POC O2 Flow Rate % Sodium 142 (135-145) mmol/L Chloride 105 (98-107) mmol/L Carbon Dioxide 31 H (22-30) mmol/L Anion Gap 11.5 (5-15) MEQ/L BUN 27 H (7-17) mg/dL Creatinine 1.07 H (0.52-1.04) mg/dL Estimated GFR 53.5 ML/MIN Glucose 85 (74-106) mg/dL Lactic Acid (0.4-2.0) Calcium 8.7 (8.4-10.2) mg/dL Magnesium 2.2 (1.6-2.3) mg/dL Total Bilirubin 1.10 (0.2-1.3) mg/dL AST 45 H (14-36) U/L ALT 23 (0-35) U/L Alkaline Phosphatase 79 (38-126) U/L Troponin I (0.000-0.033) ng/mL NT-Pro-B Natriuret Pep (<300) pg/mL Serum Total Protein 6.5 (6.3-8.2) g/dL Albumin 3.5 (3.5-5.0) g/dL Valproic Acid 19.1 L (50-100) ug/mL Influenza Type A Ag NEGATIVE (NEGATIVE) Influenza Type B Ag NEGATIVE (NEGATIVE) RSV (PCR) NEGATIVE (NEGATIVE) SARS-CoV-2 (PCR) NEGATIVE (NEGATIVE) 05/02/25 05/02/25 05/02/25 Range/Units 20:20 20:08 19:46 WBC 13.1 H (3.98-10.04) x10^3/uL RBC 3.77 L (3.93-5.22) x10^6/uL Hgb 12.0 (11.2-15.7) g/dL Hct 38.1 (34.1-44.9) % MCV 101.1 H (79.4-94.8) fL MCH 31.8 (25.6-32.2) pg MCHC 31.5 L (32.2-35.5) g/dL RDW 14.1 (11.7-14.4) % Plt Count 197 (182-369) x10^3/uL MPV 10.6 (9.4-12.3) fL Gran % 83.2 H (34.0-71.1) % Immature Gran % (Auto) 0.6 H (0.001-0.429) % Nucleat RBC Rel Count 0.0 (0.00-0.2) % Eos # (Auto) 0.01 L (0.04-0.36) x10^3/uL Immature Gran # (Auto) 0.08 H (0.001-0.031) x10^3u/L Absolute Lymphs (auto) 1.04 L (1.18-3.74) x10^3/uL Absolute Monos (auto) 1.05 H (0.24-0.86) x10^3/uL Absolute Nucleated RBC 0.00 (0.00-0.012) x10^3u/L Lymphocytes % 7.9 L (19.3-51.7) % Monocytes % 8.0 (4.7-12.5) % Eosinophils % 0.1 L (0.7-5.8) % Basophils % 0.2 (0.1-1.2) % Absolute Granulocytes 10.94 H (1.56-6.13) x10^3/uL Basophils # 0.02 (0.01-0.08) x10^3/uL Puncture Site RIGHT RADIAL pCO2 50 H (35-45) mmHg pO2 79 (75-100) mmHg Base Excess 3.6 H (-2.0-2.0) O2 Saturation 95.2 (94-100) g/dF ABG pH 7.38 (7.35-7.45) ABG HCO3 29.6 H* (22-28) ABG O2 Sat (Measured) 95.5 (95-100) % Francesco Test YES A-a Gradient 87 a/A Ratio 0.48 Hemoglobin 12.1 Carboxyhemoglobin 0.3 (0.0-6.9) % THgb Methemoglobin 0.0 L (1.4-1.5) % Potassium 3.6 (3.5-5.1) Temperature 37.0 C POC O2 Flow Rate 32 % Sodium (135-145) mmol/L Chloride (98-107) mmol/L Carbon Dioxide (22-30) mmol/L Anion Gap (5-15) MEQ/L BUN (7-17) mg/dL Creatinine (0.52-1.04) mg/dL Estimated GFR ML/MIN Glucose (74-106) mg/dL Lactic Acid 0.6 (0.4-2.0) Calcium (8.4-10.2) mg/dL Magnesium (1.6-2.3) mg/dL Total Bilirubin (0.2-1.3) mg/dL AST (14-36) U/L ALT (0-35) U/L Alkaline Phosphatase (38-126) U/L Troponin I 0.033 (0.000-0.033) ng/mL NT-Pro-B Natriuret Pep 1130 (<300) pg/mL Serum Total Protein (6.3-8.2) g/dL Albumin (3.5-5.0) g/dL Valproic Acid (50-100) ug/mL Influenza Type A Ag (NEGATIVE) Influenza Type B Ag (NEGATIVE) RSV (PCR) (NEGATIVE) SARS-CoV-2 (PCR) (NEGATIVE) - Progress Progress: improved, re-examined Air Movement: good Progress Note: 05/02/25 21:48 My medical decision making and the assignment of high complexity of this patient's medical issue today is based on review the patient's past medical history, review the patient's medication list, review the patient drug allergy list, history present illness and physical findings on examination. The workup in this patient includes placement of intravenous line, RT evaluation and management with nebulizer treatment, CBC, CMP, lactic acid level, troponin level, BNP level, twelve-lead EKG, chest x-ray, ABG. Differential diagnosis includes was not limited to myocardial infarction, arrhythmia, CHF, anemia, pneumonia, viral illness I interpreted the preliminary chest x-ray report. I see right lung base infiltrate/fluid. There are no other acute cardiopulmonary abnormalities. I interpreted the patient's laboratory data results. Based on laboratory data results, the patient does have a leukocytosis with a left shift. Her BNP is slightly elevated. She has a normal troponin level. She denies chest pain at this time. I spoke with Dr. Arevalo, the telehospitalist on at this time. I reviewed the patient's history, chief complaint, physical findings on examination and workup results with him. I also reported to him the results of the chest x-ray reading, laboratory results as well as up-to-date vital signs. We are going to provide the patient with IV saline bolus, place the patient in observation on telemetry and provide the patient with intravenous antibiotics, oxygen supplementation, RT evaluation and repeat labs in the morning. We will attempt to hold off on running and maintenance fluid given the patient's history of having CHF. Blood Culture(s) Obtained: Yes Antibiotics given: Yes Counseled pt/family regarding: lab results, diagnosis, rad results Medical Desision Making - Independent Historian Additional History obtained from: Strategic Analyst/EMT - Discussion of managment Care discussed with:: hospitalist Reviewed:: Test results, Need for additional workup Agreed on:: place in obs - Diagnostic Testing Diagnostic test were ordered, analyzed, and reviewed by me: Yes Radiological Interpretation: Interpreted by me - Risk of complications The pt has a high risk of morbidity or mortality based on: Decision regarding hospitilization or escalation of hosp level of care - Departure Departure Disposition: Observation Clinical Impression: Right pulmonary infiltrate on CXR, CHF (congestive heart failure), Hypoxia Condition: Fair Critical Care Time: Yes Critical Care Time(excluding separately billable procedures): Critical 30-74 mins (45) Referrals: EARLINE LUNDBERG DO [Primary Care Provider, [facility]] - Follow up/PCP as directed Instructions: Heart Failure
[2025-05-02 20:19] LABS: A-aADO2 87; ABG HEMOGLOBIN 12.1; ABG POTASSIUM 3.6 (3.5-5.1); ABG SITE RIGHT RADIAL; ALLEN TEST OK? YES; ARTERIAL BLD GAS O2 SATURATION 95.5 % (95-100); ARTERIAL BLOOD GAS BASE EXCESS 3.6 (-2.0-2.0); ARTERIAL BLOOD GAS FIO2 32 %; ARTERIAL BLOOD GAS PCO2 50 mmHg (35-45); ARTERIAL BLOOD GAS PO2 79 mmHg (75-100); ARTERIAL BLOOD GAS TEMPERATURE 37.0 C; HCO3- 29.6 (22-28); HGB O2 SAT 95.2 g/dF (94-100); Methhemoglobin 0.0 % (1.4-1.5); paO2 pAO1 0.48
[2025-05-02 20:31] LABS: BASOPHIL % 0.2 % (0.1-1.2); Basophil (Absolute #) 0.02 x10^3/uL (0.01-0.08); Eosinophil (Absolute #) 0.01 x10^3/uL (0.04-0.36); Hematocrit 38.1 % (34.1-44.9); Hemoglobin 12.0 g/dL (11.2-15.7); IMMATURE GRAN # 0.08 x10^3u/L (0.001-0.031); IMMATURE GRAN % 0.6 % (0.001-0.429); Lymphocyte (Absolute #) 1.04 x10^3/uL (1.18-3.74); Mean Corpuscular Hemoglobin 31.8 pg (25.6-32.2); Mean Corpuscular Hgb Concent. 31.5 g/dL (32.2-35.5); Monocyte (Absolute #) 1.05 x10^3/uL (0.24-0.86); NUCLEATED RBC # 0.00 x10^3u/L (0.00-0.012); NUCLEATED RBC % 0.0 % (0.00-0.2); Platelet Count 197 x10^3/uL (182-369); Red Blood Count 3.77 x10^6/uL (3.93-5.22); White Blood Count 13.1 x10^3/uL (3.98-10.04)
[2025-05-02] MEDS ORDERED: DUONEB 0.5-3 MG/3 ml Neb IH ONE (20:31)
[2025-05-02] MEDS: DUONEB 0.5-3 MG/3 ml Neb IH ONE (20:32)
[2025-05-02 21:11] LABS: INFLUENZA A NEGATIVE (NEGATIVE); INFLUENZA B NEGATIVE (NEGATIVE); RESPIRATORY SYNCTIAL VIRUS NEGATIVE (NEGATIVE); SARS-CoV-2 Xpert Express NEGATIVE (NEGATIVE)
[2025-05-02 21:13] LABS: NT PRO BNPII 1130.0 pg/mL (<300); TROPONIN 0.033 ng/mL (0.000-0.033)
[2025-05-02 21:19] LABS: Calcium 8.7 mg/dL (8.4-10.2); Carbon Dioxide 31.0 mmol/L (22-30); Creatinine 1 1.07 mg/dL (0.52-1.04); EST GLOMERULAR FILTRATION RATE 53.5 ML/MIN; Glucose 85.0 mg/dL (74-106); Potassium 4.3 mmol/L (3.5-5.1); SGOT/AST 45.0 U/L (14-36); SGPT/ALT 23.0 U/L (0-35); Total Protein 6.5 g/dL (6.3-8.2)
[2025-05-02] MEDS ORDERED: Lasix 40 MG/4 ML ONE (21:39)
[2025-05-02] MEDS ORDERED: ROCEPHIN 1 GM / 100 ML NaCl 1 GM/100 ML IVPB IV ONE (21:40)
[2025-05-02] MEDS: Lasix 40 MG/4 ML IV ONE (21:45)
[2025-05-02] MEDS: ROCEPHIN 1 GM / 100 ML NaCl 1 GM/100 ML IVPB IV ONE (21:49)
--- NOTE | 2025-05-02 22:05 | XRAY ---
Indication: Short of breath. Comparison: April 20, 2024 Portable chest demonstrates new diffuse bilateral groundglass airspace disease and right mid to lower lung consolidating airspace disease. No large effusion. Heart not enlarged again with left pacemaker. Bony thorax intact again with osteopenia and degenerative changes.
[2025-05-02] MEDS: ROCEPHIN 1 GM / 100 ML NaCl 1 GM/100 ML IVPB IV SCH (22:08)
[2025-05-02] MEDS ORDERED: HUMULIN R SQ PRN (22:58)
[2025-05-02] MEDS ORDERED: TYLENOL 325 MG PO PRN (22:58)
[2025-05-03 05:05] LABS: BASOPHIL % 0.2 % (0.1-1.2); Basophil (Absolute #) 0.03 x10^3/uL (0.01-0.08); Eosinophil (Absolute #) 0 x10^3/uL (0.04-0.36); Hematocrit 33.8 % (34.1-44.9); Hemoglobin 10.5 g/dL (11.2-15.7); IMMATURE GRAN # 0.07 x10^3u/L (0.001-0.031); IMMATURE GRAN % 0.5 % (0.001-0.429); Lymphocyte (Absolute #) 1.83 x10^3/uL (1.18-3.74); Mean Corpuscular Hemoglobin 31.8 pg (25.6-32.2); Mean Corpuscular Hgb Concent. 31.1 g/dL (32.2-35.5); Monocyte (Absolute #) 0.84 x10^3/uL (0.24-0.86); NUCLEATED RBC # 0.00 x10^3u/L (0.00-0.012); NUCLEATED RBC % 0.0 % (0.00-0.2); Platelet Count 168 x10^3/uL (182-369); Red Blood Count 3.30 x10^6/uL (3.93-5.22); White Blood Count 14.3 x10^3/uL (3.98-10.04)
[2025-05-03 05:41] LABS: Calcium 8.1 mg/dL (8.4-10.2); Carbon Dioxide 29.0 mmol/L (22-30); Creatinine 1 1.4 mg/dL (0.52-1.04); EST GLOMERULAR FILTRATION RATE 38.8 ML/MIN; Glucose 139.0 mg/dL (74-106); NT PRO BNPII 2310.0 pg/mL (<300); Potassium 4.0 mmol/L (3.5-5.1); SGOT/AST 41.0 U/L (14-36); SGPT/ALT 25.0 U/L (0-35); Total Protein 5.8 g/dL (6.3-8.2)
[2025-05-03] MEDS: Furosemide 100mg/10 ml Vial IV ONE (05:55)
--- NOTE | 2025-05-03 05:58 | PCM.HP ---
History of Present Illness - Chief Complaint Chief Complaint: Right pulmonary infiltrate, CHF, hypoxia History of Present Illness: Plan and assessment Acute decompensated heart failure (acute, high risk) - She is endorsing symptoms of orthopnea and has worsening lower extremity edema. - She is currently receiving a home diuretic dose of furosemide 60 mg qAM and 20 mg qPM. - She received a one-time dose of IV Lasix 40 mg in the emergency room. - Plan is to redose with IV Lasix 60 mg in the morning. - The target is a net fluid removal of 2 liters daily. - Diet will be restricted to 2 grams of sodium and 2 liters of fluid daily. - Daily weights and intake/output will be monitored. - An inpatient/outpatient echocardiogram will be beneficial. - Electrolytes will be repeated as needed, with a target of magnesium greater than 2 and potassium greater than 4. Possible aspiration pneumonia (acute, high risk) - While she denies subjective fevers, chills, cough, or sputum production, there is clinical suspicion due to a recent endoscopic procedure, which carries a high risk for aspiration. - A chest X-ray noted a right lower lung base infiltrate, and there is evidence of leukocytosis. - Agree with empiric antibiotic treatment for possible healthcare-associated pneumonia. - She will be redosed with IV ceftriaxone 1 g tomorrow. - Continue azithromycin 500 mg qday for a total three-day course, stopping on . - Antibiotic therapy can be modified based on the clinical course. Hypertension (chronic, controlled) - Plan is for conservative management in the setting of acute illness. - She appears to have borderline low blood pressure at this time. - She received 500 mL of fluid resuscitation in the emergency room. Cerebrovascular disease, history of prior TIA (chronic, stable) - Continue ASA 81 mg and atorvastatin 80 mg. Diabetes mellitus (chronic, stable) - Resume glargine 20 units BID. - Initiate a low-dose, mealtime sliding scale insulin regimen. 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 Migraines (chronic, stable) - Continue propranolol for migraine prophylaxis and for additional antihypertensive benefit. Subjective This is a 79-year-old woman who presents from a halfway following a GI endoscopic evaluation earlier today for a possible esophageal stricture. She tolerated the procedure well. However, an hour afterwards, there was concern at her facility that she was experiencing hypoxia, and she was started on supplemental oxygen via nasal cannula. On review today, she also endorses a several-day history of worsening lower extremity edema and orthopnea. Her primary symptom is shortness of breath and a change in her respiratory status. She denies any subjective fevers, chills, or cough. Her past medical history is notable for hypertension, hyperlipidemia, TIA, Crohn's disease, and irritable bowel syndrome. Home medications Aspirin 81 mg Atorvastatin 80 mg Glargine 20 units BID Propranolol 80 mg QD Sotalol 20 mg two day Levothyroxine 25 mcg QD Allopurinol 100 mg QD Sertraline 100 mg qHS Trulicity 0.75 mg Q weekly Furosemide 60 mg qAM and 20 mg qPM Lyrica 50 mg TID Rivaroxaban 20 mg qday Physical examination Musculoskeletal She has bilateral lower extremity compression stockings in place. There are signs of edema and venous changes. Lab and Studies Reviewed - Complete Blood Count (05/02/2025): Hemoglobin 12.0, hematocrit 38, WBC 13.1, platelets 197. Independently reviewed and interpreted by me. - Basic Metabolic Panel (05/02/2025): Sodium 142, potassium 4.3, chloride 105, bicarb 31, BUN 27, creatinine 1.07. Independently reviewed and interpreted by me. - Chest X-ray (05/02/2025): Right lower lung base infiltrate. Independently reviewed and interpreted by me. MDM Summary 1. Number and Complexity of Problems Addressed (CoPA): - High Complexity: The patient presents with multiple complex issues, including acute decompensated heart failure and possible aspiration pneumonia, both of which pose a threat to life or bodily function. Additionally, she has multiple chronic morbidities (hypertension, TIA, diabetes) requiring management in the setting of acute illness. 2. Amount and/or Complexity of Data to be Reviewed and Analyzed (Data): - Extensive: Data review was extensive, involving the independent interpretation of multiple diagnostic tests, including a complete blood count, a basic metabolic panel, and a chest X-ray. Three tests were reviewed. 3. Risk of Complications, Morbidity, and/or Mortality (Risk): - High Risk: The management plan involves multiple high-risk elements. She is receiving IV medications including Lasix, ceftriaxone, and azithromycin. The decision to manage acute decompensated heart failure and potential pneumonia carries a high risk of morbidity and mortality. The consideration of hospitalization and escalation of care also places this encounter in the high-risk category. Medications & Allergies Home Medications: Home Medication List Aspirin EC 81 mg [Ecotrin 81 mg] 81 mg PO QHS 04/17/22 [History Confirmed 05/02/25] Atorvastatin Calcium 80 mg PO QHS 04/17/22 [History Confirmed 05/02/25] Pramipexole Di-HCl [Pramipexole Dihydrochloride] 1 mg PO TID 04/17/22 [History Confirmed 05/02/25] Insulin Glargine,Hum.rec.anlog [Lantus] 20 unit SQ BID 05/26/23 [History Confirmed 05/02/25] Melatonin 3 mg PO QHS 05/26/23 [History Confirmed 05/02/25] Allopurinol 100 mg [Zyloprim 100 mg] 100 mg PO DAILY 06/24/23 [History Confirmed 05/02/25] Acetaminophen 325 mg [Tylenol 325 mg] 650 mg PO Q6H PRN PRN 12/24/23 [History Confirmed 05/02/25] Levothyroxine Sodium 25 mcg PO DAILY 12/24/23 [History Confirmed 05/02/25] Nystatin Powder 15 gm [Nystop Powder 15 gm] 15 gm TP BID 12/24/23 [History Confirmed 05/02/25] Carboxymethylcellulose Sodium [Artificial Tears] 1 unit OP TID 04/20/24 [History Confirmed 05/02/25] Loratadine 10 mg [Claritin 10 mg] 10 mg PO HS 04/20/24 [History Confirmed 05/02/25] Propranolol HCl [Inderal ] 80 mg PO DAILY 04/20/24 [History Confirmed 05/02/25] glucagon HCL [Glucagon Emergency Kit] 1 mg SQ UD PRN 04/20/24 [History Confirmed 05/02/25] Sertraline HCl 100 mg PO HS 01/06/25 [History Confirmed 05/02/25] Hydrocodone/Acetaminophen [Hydrocodone-Acetamin 5-325 mg] 1 tab PO Q4HPRN PRN MDD 6 03/17/25 [History Confirmed 05/02/25] Rivaroxaban [Xarelto] 20 mg PO DAILY 03/17/25 [History Confirmed 05/02/25] Bisacodyl 10 mg [Dulcolax 10 MG SUPP] 10 mg RC Q5D PRN 05/02/25 [History Confirmed 05/02/25] Divalproex Sodium ER 250 mg [Depakote EXTENDED RELEASE 250 MG] 2 tab PO HS 05/02/25 [History Confirmed 05/02/25] Dulaglutide [Trulicity] 0.75 mg SQ Q7D 05/02/25 [History Confirmed 05/02/25] Furosemide 20 mg [Lasix 20 mg] 20 mg PO BID 05/02/25 [History Confirmed 05/02/25] Furosemide 40 mg [Lasix 40 MG] 40 mg PO DAILY 05/02/25 [History Confirmed 05/02/25] Gabapentin [Neurontin ] 300 mg PO TID 05/02/25 [History Confirmed 05/02/25] Gentamicin 0.1% Cream [Gentamicin Sulfate 0.1% Cream] 1 applic TP BID 05/02/25 [History Confirmed 05/02/25] Loperamide HCl 2 mg [Imodium 2 mg] 2 mg PO Q6H PRN PRN 05/02/25 [History Confirmed 05/02/25] Lubiprostone [Amitiza] 8 mcg PO BID 05/02/25 [History Confirmed 05/02/25] Magnesium Hydroxide [Milk of Magnesia] 10 ml PO DAILY PRN PRN 05/02/25 [History Confirmed 05/02/25] Nitroglycerin 0.4 mg Tablet [Nitrostat 0.4 MG Tablet] 0.4 mg SL Q5MIN PRN MR X 3 PRN 05/02/25 [History Confirmed 05/02/25] Ondansetron [Ondansetron Odt ] 4 mg PO Q8H PRN 05/02/25 [History Confirmed 05/02/25] Pregabalin 50 mg [Lyrica 50MG] 50 mg PO TID 05/02/25 [History Confirmed 05/02/25] Allergies/Adverse Reactions: Allergies Allergy/AdvReac Type Severity Reaction Status Date / Time oxycodone Allergy Severe Itching Verified 05/02/25 20:00 - Past Medical History Past Medical History: Yes Neurological History: Migraines, TIA, Other ENT History: Cataracts Cardiac History: Congestive Heart Failure, High Cholesterol, Hypertension, Other Respiratory History: CHF Endocrine Medical History: Diabetes Type II Musculoskelatal History: Degenerative Disk Disease GI Medical History: Crohns Disease, Irritable Bowel History: No Pertinent History Pyscho-Social History: Depression Reproductive Disorders: No Pertinent History Comment: NEUROPATHY - Past Surgical History Past Surgical History: Yes Neuro Surgical History: No Pertinent History Cardiac History: Pacemaker Respiratory Surgery: No Pertinent History GI Surgical History: Appendectomy, Cholecystectomy Genitourinary Surgical Hx: No Pertinent History Musculskeletal Surgical Hx: Joint Replacement, Orthopedic Surgery Female Surgical History: No Pertinent History Other Surgical History: BARIATRIC SURG,CARPAL TUNNEL, bilateral knee replacements - Social History Smoking Status: Never smoker Exposure to second hand smoke: No Alcohol: None Drug Use: none - Social Determinants of Health Will the patient participate in the screening: Yes Do you worry about a steady place to live?: No Do you have any problems with any of the following?: No known problems In the past 12 months,have you had to go without utilities?: No Have you or anyone in your house had to go without enough: No Transportation Issues: No Has anyone in your support network made you feel unsafe?: No Does the patient want assistance with any of the above?: No Comment: Living at [facility] - Physical Exam Vital Signs: Vital Signs - 24 hr Temp Pulse Resp BP BP Pulse Ox 05/03/25 04:00 97.3 F 95 H 16 124/67 96 05/03/25 00:38 69 18 92 L 05/02/25 22:50 97.9 F 113 H 22 103/50 96 05/02/25 22:12 98 H 29 H 96/62 96 05/02/25 22:00 74 21 81/45 94 L 05/02/25 21:56 96 05/02/25 21:31 93 H 25 H 87/46 94 L 05/02/25 21:30 96 H 28 H 77/46 94 L 05/02/25 21:18 96 H 28 H 99/64 95 05/02/25 21:16 98 H 23 86/60 76 L 05/02/25 21:15 98 H 22 75/49 95 05/02/25 21:10 91 H 32 H 83 L 05/02/25 21:03 101 H 24 99/64 82 L 05/02/25 20:33 99 H 20 96 05/02/25 20:30 75 22 95/73 82 L 05/02/25 20:01 96 05/02/25 20:00 101 H 21 99/49 98 05/02/25 19:51 24 96 05/02/25 19:49 93 H 23 99/58 95 05/02/25 19:47 97.9 F 96 H 24 99/58 98 Wound Assessment: Skin/Wound Assessment Wound/Incision Assessment Start: 05/02/25 23:43 Text: Status: Active Freq: Q6H Protocol: Document 05/03/25 02:00 KD (Rec: 05/03/25 03:45 KD [id number]) Wound/Incision Assessment Bilateral Lower Legs Wound Assessment Shift Assessment Dressing Status Dry & Intact Comment CRUZ, wrapped per Dr. 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 Bilateral Abdominal Folds Wound Assessment Shift Assessment Wound Type Gaulding Wound Stage Non Pressure Wound Drainage Amount None General Appearance Open to air,Reddened Comment CHELI - remains true Sacrum Wound Assessment Shift Assessment Wound Type Pressure Ulcer Wound Stage Stage II Drainage Amount None General Appearance Open to air,Reddened Length (cm) (cm) 0.3 Width (cm) (cm) 0.3 Surrounding Tissue Dark Red 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, 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08 H (0.001-0.031) x10^3u/L Absolute Lymphs (auto) 1.04 L (1.18-3.74) x10^3/uL Absolute Monos (auto) 1.05 H (0.24-0.86) x10^3/uL Absolute Nucleated RBC 0.00 (0.00-0.012) x10^3u/L Lymphocytes % 7.9 L (19.3-51.7) % Monocytes % 8.0 (4.7-12.5) % Eosinophils % 0.1 L (0.7-5.8) % Basophils % 0.2 (0.1-1.2) % Absolute Granulocytes 10.94 H (1.56-6.13) x10^3/uL Basophils # 0.02 (0.01-0.08) x10^3/uL Puncture Site RIGHT RADIAL pCO2 50 H (35-45) mmHg pO2 79 (75-100) mmHg Base Excess 3.6 H (-2.0-2.0) O2 Saturation 95.2 (94-100) g/dF ABG pH 7.38 (7.35-7.45) ABG HCO3 29.6 H* (22-28) ABG O2 Sat (Measured) 95.5 (95-100) % Francesco Test YES A-a Gradient 87 a/A Ratio 0.48 Hemoglobin 12.1 Carboxyhemoglobin 0.3 (0.0-6.9) % THgb Methemoglobin 0.0 L (1.4-1.5) % Potassium 3.6 (3.5-5.1) Temperature 37.0 C POC O2 Flow Rate 32 % Sodium (135-145) mmol/L Chloride (98-107) mmol/L Carbon Dioxide (22-30) mmol/L Anion Gap (5-15) MEQ/L BUN (7-17) mg/dL Creatinine (0.52-1.04) mg/dL Estimated GFR ML/MIN Glucose (74-106) mg/dL Lactic Acid 0.6 (0.4-2.0) Calcium (8.4-10.2) mg/dL Magnesium (1.6-2.3) mg/dL Total Bilirubin (0.2-1.3) mg/dL AST (14-36) U/L ALT (0-35) U/L Alkaline Phosphatase (38-126) U/L Troponin I 0.033 (0.000-0.033) ng/mL NT-Pro-B Natriuret Pep 1130 (<300) pg/mL Serum Total Protein (6.3-8.2) g/dL Albumin (3.5-5.0) g/dL Valproic Acid (50-100) ug/mL Influenza Type A Ag (NEGATIVE) Influenza Type B Ag (NEGATIVE) RSV (PCR) (NEGATIVE) SARS-CoV-2 (PCR) (NEGATIVE) 05/02/25 05/02/25 05/02/25 Range/Units 20:20 20:20 20:30 WBC (3.98-10.04) x10^3/uL RBC (3.93-5.22) x10^6/uL Hgb (11.2-15.7) g/dL Hct (34.1-44.9) % MCV (79.4-94.8) fL MCH (25.6-32.2) pg MCHC (32.2-35.5) g/dL RDW (11.7-14.4) % Plt Count (182-369) x10^3/uL MPV (9.4-12.3) fL Gran % (34.0-71.1) % Immature Gran % (Auto) (0.001-0.429) % Nucleat RBC Rel Count (0.00-0.2) % Eos # (Auto) (0.04-0.36) x10^3/uL Immature Gran # (Auto) (0.001-0.031) x10^3u/L Absolute Lymphs (auto) (1.18-3.74) x10^3/uL Absolute Monos (auto) (0.24-0.86) x10^3/uL Absolute Nucleated RBC (0.00-0.012) x10^3u/L Lymphocytes % (19.3-51.7) % Monocytes % (4.7-12.5) % Eosinophils % (0.7-5.8) % Basophils % (0.1-1.2) % Absolute Granulocytes (1.56-6.13) x10^3/uL Basophils # (0.01-0.08) x10^3/uL Puncture Site pCO2 (35-45) mmHg pO2 (75-100) mmHg Base Excess (-2.0-2.0) O2 Saturation (94-100) g/dF ABG pH (7.35-7.45) ABG HCO3 (22-28) ABG O2 Sat (Measured) (95-100) % Francesco Test A-a Gradient a/A Ratio Hemoglobin Carboxyhemoglobin (0.0-6.9) % THgb Methemoglobin (1.4-1.5) % Potassium 4.3 (3.5-5.1) Temperature C POC O2 Flow Rate % Sodium 142 (135-145) mmol/L Chloride 105 (98-107) mmol/L Carbon Dioxide 31 H (22-30) mmol/L Anion Gap 11.5 (5-15) MEQ/L BUN 27 H (7-17) mg/dL Creatinine 1.07 H (0.52-1.04) mg/dL Estimated GFR 53.5 ML/MIN Glucose 85 (74-106) mg/dL Lactic Acid (0.4-2.0) Calcium 8.7 (8.4-10.2) mg/dL Magnesium 2.2 (1.6-2.3) mg/dL Total Bilirubin 1.10 (0.2-1.3) mg/dL AST 45 H (14-36) U/L ALT 23 (0-35) U/L Alkaline Phosphatase 79 (38-126) U/L Troponin I (0.000-0.033) ng/mL NT-Pro-B Natriuret Pep (<300) pg/mL Serum Total Protein 6.5 (6.3-8.2) g/dL Albumin 3.5 (3.5-5.0) g/dL Valproic Acid 19.1 L (50-100) ug/mL Influenza Type A Ag NEGATIVE (NEGATIVE) Influenza Type B Ag NEGATIVE (NEGATIVE) RSV (PCR) NEGATIVE (NEGATIVE) SARS-CoV-2 (PCR) NEGATIVE (NEGATIVE) 05/03/25 05/03/25 05/03/25 Range/Units 00:45 04:32 04:32 WBC 14.3 H (3.98-10.04) x10^3/uL RBC 3.30 L (3.93-5.22) x10^6/uL Hgb 10.5 L (11.2-15.7) g/dL Hct 33.8 L (34.1-44.9) % MCV 102.4 H (79.4-94.8) fL MCH 31.8 (25.6-32.2) pg MCHC 31.1 L (32.2-35.5) g/dL RDW 14.2 (11.7-14.4) % Plt Count 168 L (182-369) x10^3/uL MPV 10.7 (9.4-12.3) fL Gran % 80.6 H (34.0-71.1) % Immature Gran % (Auto) 0.5 H (0.001-0.429) % Nucleat RBC Rel Count 0.0 (0.00-0.2) % Eos # (Auto) 0 L (0.04-0.36) x10^3/uL Immature Gran # (Auto) 0.07 H (0.001-0.031) x10^3u/L Absolute Lymphs (auto) 1.83 (1.18-3.74) x10^3/uL Absolute Monos (auto) 0.84 (0.24-0.86) x10^3/uL Absolute Nucleated RBC 0.00 (0.00-0.012) x10^3u/L Lymphocytes % 12.8 L (19.3-51.7) % Monocytes % 5.9 (4.7-12.5) % Eosinophils % 0.0 L (0.7-5.8) % Basophils % 0.2 (0.1-1.2) % Absolute Granulocytes 11.49 H (1.56-6.13) x10^3/uL Basophils # 0.03 (0.01-0.08) x10^3/uL Puncture Site pCO2 (35-45) mmHg pO2 (75-100) mmHg Base Excess (-2.0-2.0) O2 Saturation (94-100) g/dF ABG pH (7.35-7.45) ABG HCO3 (22-28) ABG O2 Sat (Measured) (95-100) % Francesco Test A-a Gradient a/A Ratio Hemoglobin Carboxyhemoglobin (0.0-6.9) % THgb Methemoglobin (1.4-1.5) % Potassium (3.5-5.1) Temperature C POC O2 Flow Rate % Sodium (135-145) mmol/L Chloride (98-107) mmol/L Carbon Dioxide (22-30) mmol/L Anion Gap (5-15) MEQ/L BUN (7-17) mg/dL Creatinine (0.52-1.04) mg/dL Estimated GFR ML/MIN Glucose (74-106) mg/dL Lactic Acid (0.4-2.0) Calcium (8.4-10.2) mg/dL Magnesium (1.6-2.3) mg/dL Total Bilirubin (0.2-1.3) mg/dL AST (14-36) U/L ALT (0-35) U/L Alkaline Phosphatase (38-126) U/L Troponin I 0.049 H* 0.045 H* (0.000-0.033) ng/mL NT-Pro-B Natriuret Pep (<300) pg/mL Serum Total Protein (6.3-8.2) g/dL Albumin (3.5-5.0) g/dL Valproic Acid (50-100) ug/mL Influenza Type A Ag (NEGATIVE) Influenza Type B Ag (NEGATIVE) RSV (PCR) (NEGATIVE) SARS-CoV-2 (PCR) (NEGATIVE) 05/03/25 Range/Units 04:32 WBC (3.98-10.04) x10^3/uL RBC (3.93-5.22) x10^6/uL Hgb (11.2-15.7) g/dL Hct (34.1-44.9) % MCV (79.4-94.8) fL MCH (25.6-32.2) pg MCHC (32.2-35.5) g/dL RDW (11.7-14.4) % Plt Count (182-369) x10^3/uL MPV (9.4-12.3) fL Gran % (34.0-71.1) % Immature Gran % (Auto) (0.001-0.429) % Nucleat RBC Rel Count (0.00-0.2) % Eos # (Auto) (0.04-0.36) x10^3/uL Immature Gran # (Auto) (0.001-0.031) x10^3u/L Absolute Lymphs (auto) (1.18-3.74) x10^3/uL Absolute Monos (auto) (0.24-0.86) x10^3/uL Absolute Nucleated RBC (0.00-0.012) x10^3u/L Lymphocytes % (19.3-51.7) % Monocytes % (4.7-12.5) % Eosinophils % (0.7-5.8) % Basophils % (0.1-1.2) % Absolute Granulocytes (1.56-6.13) x10^3/uL Basophils # (0.01-0.08) x10^3/uL Puncture Site pCO2 (35-45) mmHg pO2 (75-100) mmHg Base Excess (-2.0-2.0) O2 Saturation (94-100) g/dF ABG pH (7.35-7.45) ABG HCO3 (22-28) ABG O2 Sat (Measured) (95-100) % Francesco Test A-a Gradient a/A Ratio Hemoglobin Carboxyhemoglobin (0.0-6.9) % THgb Methemoglobin (1.4-1.5) % Potassium 4.0 (3.5-5.1) Temperature C POC O2 Flow Rate % Sodium 140 (135-145) mmol/L Chloride 106 (98-107) mmol/L Carbon Dioxide 29 (22-30) mmol/L Anion Gap 9.0 (5-15) MEQ/L BUN 30 H (7-17) mg/dL Creatinine 1.40 H (0.52-1.04) mg/dL Estimated GFR 38.8 ML/MIN Glucose 139 H (74-106) mg/dL Lactic Acid (0.4-2.0) Calcium 8.1 L (8.4-10.2) mg/dL Magnesium (1.6-2.3) mg/dL Total Bilirubin 0.60 (0.2-1.3) mg/dL AST 41 H (14-36) U/L ALT 25 (0-35) U/L Alkaline Phosphatase 68 (38-126) U/L Troponin I (0.000-0.033) ng/mL NT-Pro-B Natriuret Pep 2310 (<300) pg/mL Serum Total Protein 5.8 L (6.3-8.2) g/dL Albumin 3.1 L (3.5-5.0) g/dL Valproic Acid (50-100) ug/mL Influenza Type A Ag (NEGATIVE) Influenza Type B Ag (NEGATIVE) RSV (PCR) (NEGATIVE) SARS-CoV-2 (PCR) (NEGATIVE) - Radiology Impressions Radiology Exams & Impressions: Radiology Procedures Category Date Time Status CHEST 1 VIEW (PORTABLE) Stat Exams 05/02/25 20:01 Completed - Other Procedures and Tests Respiratory Therapy 05/02/25 20:30 Respiratory Therapy Assessment DAILY 05/03/25 00:36 BiPap/CPAP ROUTINE 05/03/25 00:37 Oxygen Nasal Cannula 3 lpm Telemedicine Encounter - Telemedicine Encounter Telemedicine Encounter: "The entirety of this encounter was performed via Telemedicine" This visit was performed using real-time audio and video connection between my location and thepatients locationwith the assistance of a surrogateat the patients location. Written or verbal consent was obtained from the patient/guardian to perform this visit u[email or web address]. Any patient questions regarding the telemedicine interaction were answered.
[2025-05-03] MEDS: SYNTHROID 25 MCG PO SCH (06:47)
[2025-05-03] MEDS ORDERED: PHARMACY RENAL DOSING MC ONE (07:33)
[2025-05-03] MEDS ORDERED: Nitrostat 0.4 MG Tablet SL PRN (07:34)
[2025-05-03] MEDS ORDERED: Dulcolax 10 MG SUPP RC PRN (07:34)
[2025-05-03] MEDS ORDERED: MILK OF MAGNESIA 30 ML PO PRN (08:10)
[2025-05-03] MEDS ORDERED: MEDICATION INTERVENTION MC SCH (08:15)
[2025-05-03 09:03] LABS: Glucose, Urine Negative (Negative); Protein,Urine Dip Negative (Negative); RBC 0-2 /HPF (0-5); WBC 0-2 /HPF (0-5)
--- NOTE | 2025-05-03 09:14 | PCM.NOTE ---
Date and Time: 05/03/25 0909 Subjective Assessment: Ms. Verdin is a 79-year-old woman presenting from a nursing facility after undergoing an EGD earlier today for suspected esophageal stricture. She tolerated the procedure itself, but approximately one hour later developed hypoxia, prompting initiation of supplemental oxygen via nasal cannula. On arrival, her primary complaint is shortness of breath, with several days of worsening orthopnea and bilateral lower extremity edema. She also describes progressive dysphagia with frequent choking episodes but denies subjective fevers, chills, or productive cough. On exam and review of data, she appears volume overloaded. Labs on 05/03 reveal leukocytosis (WBC 14.3 - 13.1), anemia (Hgb 10.5 -from 12.0), and renal function slightly above baseline (creatinine 1.40, baseline 0.91.0). Troponin is mildly elevated but downtrending (0.049 - 0.045), suggesting demand-related ischemia rather than acute coronary syndrome. Blood pressure has been running soft; she required a 500 mL IV fluid bolus in the ED. Portable chest radiograph demonstrates new right lower lung base consolidation consistent with aspiration or pneumonia, along with diffuse bilateral groundglass opacities possibly reflecting pulmonary edema. Her past history is significant for hypertension, hyperlipidemia, transient ischemic attack, Crohns disease, irritable bowel syndrome, migraines, diabetes mellitus, and possible prior DVT on anticoagulation. 05/03: Patient was seen at the bedside. She continues to experience shortness of breath along with a dry, nonproductive cough. At baseline she is on room air, but currently requires 3 L supplemental oxygen. On auscultation she demonstrates coarse crackles and expiratory wheezing. She receives ongoing podiatry care for chronic bilateral lower extremity issues and currently has compression dressings in place. This morning she was administered IV Lasix 60 mg with good diuresis, and there is trace edema appreciated on exam. Creatinine is noted to be rising; diuretics will be held today with plans to resume her home regimen tomorrow. Antibiotic therapy has been broadened to piperacillin-tazobactam for aspiration coverage. - Review of Systems Constitutional: No Symptoms Eyes: No Symptoms Ears, Nose, & Throat: No Symptoms Respiratory: Cough, Short Of Breath, Wheezing Cardiac: No Symptoms, Edema Abdominal/Gastrointestinal: No Symptoms Genitourinary Symptoms: No Symptoms Musculoskeletal: No Symptoms Skin: No Symptoms Neurological: No Symptoms Psychological: No Symptoms Endocrine: No Symptoms Hematologic/Lymphatic: No Symptoms Immunological/Allergic: No Symptoms Objective Exam General Appearance: no apparent distress Neurologic Exam: alert, oriented x 3, cooperative Skin Exam: normal color Wound Assessment: Skin/Wound Assessment Wound/Incision Assessment Start: 05/02/25 23:43 Text: Status: Active Freq: Q6H Protocol: Document 05/03/25 02:00 KD (Rec: 05/03/25 03:45 KD [id number]) Wound/Incision Assessment Bilateral Lower Legs Wound Assessment Shift Assessment Dressing Status Dry & Intact Comment CRUZ, wrapped per Dr. 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 FISHER - remains true Sacrum Wound Assessment Shift Assessment Wound Type Pressure Ulcer Wound Stage Stage II Drainage Amount None General Appearance Open to air,Reddened Length (cm) (cm) 0.3 Width (cm) (cm) 0.3 Surrounding Tissue Dark Red Comment CHELI, barrier cream & zinc ointment applied prn Wound Photo Photo Taken No Eye Exam: PERRL Ears, Nose, Throat Exam: normal ENT inspection Neck Exam: normal inspection Respiratory Exam: crackles/rales, wheezing Cardiovascular Exam: irregular Gastrointestinal/Abdomen Exam: soft, normal bowel sounds Extremity Exam: swelling (BLE trace edema- in compression dressings) Back Exam: normal inspection Pelvic Exam: deferred Rectal Exam: deferred Objective Data Vital Signs: Vital Signs - 24 hr Temp Pulse Resp BP BP Pulse Ox 05/03/25 08:12 95 05/03/25 07:26 97.9 F 73 22 92/51 99 05/03/25 04:00 97.3 F 95 H 16 124/67 96 05/03/25 00:38 69 18 92 L 05/02/25 22:50 97.9 F 113 H 22 103/50 96 05/02/25 22:12 98 H 29 H 96/62 96 05/02/25 22:00 74 21 81/45 94 L 05/02/25 21:56 96 05/02/25 21:31 93 H 25 H 87/46 94 L 05/02/25 21:30 96 H 28 H 77/46 94 L 05/02/25 21:18 96 H 28 H 99/64 95 05/02/25 21:16 98 H 23 86/60 76 L 05/02/25 21:15 98 H 22 75/49 95 05/02/25 21:10 91 H 32 H 83 L 05/02/25 21:03 101 H 24 99/64 82 L 05/02/25 20:33 99 H 20 96 05/02/25 20:30 75 22 95/73 82 L 05/02/25 20:01 96 05/02/25 20:00 101 H 21 99/49 98 05/02/25 19:51 24 96 05/02/25 19:49 93 H 23 99/58 95 05/02/25 19:47 97.9 F 96 H 24 99/58 98 Pain Assessment - Last Documented Pain Intensity 0 Intake and Output: Intake & Output 04/30/25 05/01/25 05/02/25 05/03/25 11:59 11:59 11:59 11:59 Intake Total 416 Output Total 225 Balance 191 Weight 134.9 kg Lab Results: Lab Results-Last 24 Hours 05/02/25 05/02/25 05/02/25 Range/Units 19:46 20:08 20:20 WBC 13.1 H (3.98-10.04) x10^3/uL RBC 3.77 L (3.93-5.22) x10^6/uL Hgb 12.0 (11.2-15.7) g/dL Hct 38.1 (34.1-44.9) % MCV 101.1 H (79.4-94.8) fL MCH 31.8 (25.6-32.2) pg MCHC 31.5 L (32.2-35.5) g/dL RDW 14.1 (11.7-14.4) % Plt Count 197 (182-369) x10^3/uL MPV 10.6 (9.4-12.3) fL Gran % 83.2 H (34.0-71.1) % Immature Gran % (Auto) 0.6 H (0.001-0.429) % Nucleat RBC Rel Count 0.0 (0.00-0.2) % Eos # (Auto) 0.01 L (0.04-0.36) x10^3/uL Immature Gran # (Auto) 0.08 H (0.001-0.031) x10^3u/L Absolute Lymphs (auto) 1.04 L (1.18-3.74) x10^3/uL Absolute Monos (auto) 1.05 H (0.24-0.86) x10^3/uL Absolute Nucleated RBC 0.00 (0.00-0.012) x10^3u/L Lymphocytes % 7.9 L (19.3-51.7) % Monocytes % 8.0 (4.7-12.5) % Eosinophils % 0.1 L (0.7-5.8) % Basophils % 0.2 (0.1-1.2) % Absolute Granulocytes 10.94 H (1.56-6.13) x10^3/uL Basophils # 0.02 (0.01-0.08) x10^3/uL Puncture Site RIGHT RADIAL pCO2 50 H (35-45) mmHg pO2 79 (75-100) mmHg Base Excess 3.6 H (-2.0-2.0) O2 Saturation 95.2 (94-100) g/dF ABG pH 7.38 (7.35-7.45) ABG HCO3 29.6 H* (22-28) ABG O2 Sat (Measured) 95.5 (95-100) % Francesco Test YES A-a Gradient 87 a/A Ratio 0.48 Hemoglobin 12.1 Carboxyhemoglobin 0.3 (0.0-6.9) % THgb Methemoglobin 0.0 L (1.4-1.5) % Potassium 3.6 (3.5-5.1) Temperature 37.0 C POC O2 Flow Rate 32 % Sodium (135-145) mmol/L Chloride (98-107) mmol/L Carbon Dioxide (22-30) mmol/L Anion Gap (5-15) MEQ/L BUN (7-17) mg/dL Creatinine (0.52-1.04) mg/dL Estimated GFR ML/MIN Glucose (74-106) mg/dL POC Glucometer (74 to 106) mg/dL Lactic Acid 0.6 (0.4-2.0) Calcium (8.4-10.2) mg/dL Magnesium (1.6-2.3) mg/dL Total Bilirubin (0.2-1.3) mg/dL AST (14-36) U/L ALT (0-35) U/L Alkaline Phosphatase (38-126) U/L Troponin I 0.033 (0.000-0.033) ng/mL NT-Pro-B Natriuret Pep 1130 (<300) pg/mL Serum Total Protein (6.3-8.2) g/dL Albumin (3.5-5.0) g/dL Prealbumin (17.6-36.0) mg/dL Urine Color (Yellow) Urine Appearance (Clear) Urine pH (4.6-8.0) Ur Specific [place] (1.005-1.030) Urine Protein (Negative) Urine Glucose (UA) (Negative) mg/dL Urine Ketones (Negative) Urine Blood (Negative) Urine Nitrite (Negative) Urine Bilirubin (Negative) Urine Urobilinogen (0.2) mg/dL Ur Leukocyte Esterase (Negative) U Hyaline Cast (Auto) (0-2) /LPF Urine Microscopic RBC (0-5) /HPF Urine Microscopic WBC (0-5) /HPF Ur Epithelial Cells (None Seen) /HPF Urine Bacteria (None Seen) /HPF Urine Culture Reflexed (NO) Valproic Acid (50-100) ug/mL Influenza Type A Ag (NEGATIVE) Influenza Type B Ag (NEGATIVE) RSV (PCR) (NEGATIVE) SARS-CoV-2 (PCR) (NEGATIVE) 05/02/25 05/02/25 05/02/25 Range/Units 20:20 20:20 20:30 WBC (3.98-10.04) x10^3/uL RBC (3.93-5.22) x10^6/uL Hgb (11.2-15.7) g/dL Hct (34.1-44.9) % MCV (79.4-94.8) fL MCH (25.6-32.2) pg MCHC (32.2-35.5) g/dL RDW (11.7-14.4) % Plt Count (182-369) x10^3/uL MPV (9.4-12.3) fL Gran % (34.0-71.1) % Immature Gran % (Auto) (0.001-0.429) % Nucleat RBC Rel Count (0.00-0.2) % Eos # (Auto) (0.04-0.36) x10^3/uL Immature Gran # (Auto) (0.001-0.031) x10^3u/L Absolute Lymphs (auto) (1.18-3.74) x10^3/uL Absolute Monos (auto) (0.24-0.86) x10^3/uL Absolute Nucleated RBC (0.00-0.012) x10^3u/L Lymphocytes % (19.3-51.7) % Monocytes % (4.7-12.5) % Eosinophils % (0.7-5.8) % Basophils % (0.1-1.2) % Absolute Granulocytes (1.56-6.13) x10^3/uL Basophils # (0.01-0.08) x10^3/uL Puncture Site pCO2 (35-45) mmHg pO2 (75-100) mmHg Base Excess (-2.0-2.0) O2 Saturation (94-100) g/dF ABG pH (7.35-7.45) ABG HCO3 (22-28) ABG O2 Sat (Measured) (95-100) % Francesco Test A-a Gradient a/A Ratio Hemoglobin Carboxyhemoglobin (0.0-6.9) % THgb Methemoglobin (1.4-1.5) % Potassium 4.3 (3.5-5.1) Temperature C POC O2 Flow Rate % Sodium 142 (135-145) mmol/L Chloride 105 (98-107) mmol/L Carbon Dioxide 31 H (22-30) mmol/L Anion Gap 11.5 (5-15) MEQ/L BUN 27 H (7-17) mg/dL Creatinine 1.07 H (0.52-1.04) mg/dL Estimated GFR 53.5 ML/MIN Glucose 85 (74-106) mg/dL POC Glucometer (74 to 106) mg/dL Lactic Acid (0.4-2.0) Calcium 8.7 (8.4-10.2) mg/dL Magnesium 2.2 (1.6-2.3) mg/dL Total Bilirubin 1.10 (0.2-1.3) mg/dL AST 45 H (14-36) U/L ALT 23 (0-35) U/L Alkaline Phosphatase 79 (38-126) U/L Troponin I (0.000-0.033) ng/mL NT-Pro-B Natriuret Pep (<300) pg/mL Serum Total Protein 6.5 (6.3-8.2) g/dL Albumin 3.5 (3.5-5.0) g/dL Prealbumin (17.6-36.0) mg/dL Urine Color (Yellow) Urine Appearance (Clear) Urine pH (4.6-8.0) Ur Specific [place] (1.005-1.030) Urine Protein (Negative) Urine Glucose (UA) (Negative) mg/dL Urine Ketones (Negative) Urine Blood (Negative) Urine Nitrite (Negative) Urine Bilirubin (Negative) Urine Urobilinogen (0.2) mg/dL Ur Leukocyte Esterase (Negative) U Hyaline Cast (Auto) (0-2) /LPF Urine Microscopic RBC (0-5) /HPF Urine Microscopic WBC (0-5) /HPF Ur Epithelial Cells (None Seen) /HPF Urine Bacteria (None Seen) /HPF Urine Culture Reflexed (NO) Valproic Acid 19.1 L (50-100) ug/mL Influenza Type A Ag NEGATIVE (NEGATIVE) Influenza Type B Ag NEGATIVE (NEGATIVE) RSV (PCR) NEGATIVE (NEGATIVE) SARS-CoV-2 (PCR) NEGATIVE (NEGATIVE) 05/03/25 05/03/25 05/03/25 Range/Units 00:45 04:32 04:32 WBC 14.3 H (3.98-10.04) x10^3/uL RBC 3.30 L (3.93-5.22) x10^6/uL Hgb 10.5 L (11.2-15.7) g/dL Hct 33.8 L (34.1-44.9) % MCV 102.4 H (79.4-94.8) fL MCH 31.8 (25.6-32.2) pg MCHC 31.1 L (32.2-35.5) g/dL RDW 14.2 (11.7-14.4) % Plt Count 168 L (182-369) x10^3/uL MPV 10.7 (9.4-12.3) fL Gran % 80.6 H (34.0-71.1) % Immature Gran % (Auto) 0.5 H (0.001-0.429) % Nucleat RBC Rel Count 0.0 (0.00-0.2) % Eos # (Auto) 0 L (0.04-0.36) x10^3/uL Immature Gran # (Auto) 0.07 H (0.001-0.031) x10^3u/L Absolute Lymphs (auto) 1.83 (1.18-3.74) x10^3/uL Absolute Monos (auto) 0.84 (0.24-0.86) x10^3/uL Absolute Nucleated RBC 0.00 (0.00-0.012) x10^3u/L Lymphocytes % 12.8 L (19.3-51.7) % Monocytes % 5.9 (4.7-12.5) % Eosinophils % 0.0 L (0.7-5.8) % Basophils % 0.2 (0.1-1.2) % Absolute Granulocytes 11.49 H (1.56-6.13) x10^3/uL Basophils # 0.03 (0.01-0.08) x10^3/uL Puncture Site pCO2 (35-45) mmHg pO2 (75-100) mmHg Base Excess (-2.0-2.0) O2 Saturation (94-100) g/dF ABG pH (7.35-7.45) ABG HCO3 (22-28) ABG O2 Sat (Measured) (95-100) % Francesco Test A-a Gradient a/A Ratio Hemoglobin Carboxyhemoglobin (0.0-6.9) % THgb Methemoglobin (1.4-1.5) % Potassium (3.5-5.1) Temperature C POC O2 Flow Rate % Sodium (135-145) mmol/L Chloride (98-107) mmol/L Carbon Dioxide (22-30) mmol/L Anion Gap (5-15) MEQ/L BUN (7-17) mg/dL Creatinine (0.52-1.04) mg/dL Estimated GFR ML/MIN Glucose (74-106) mg/dL POC Glucometer (74 to 106) mg/dL Lactic Acid (0.4-2.0) Calcium (8.4-10.2) mg/dL Magnesium (1.6-2.3) mg/dL Total Bilirubin (0.2-1.3) mg/dL AST (14-36) U/L ALT (0-35) U/L Alkaline Phosphatase (38-126) U/L Troponin I 0.049 H* 0.045 H* (0.000-0.033) ng/mL NT-Pro-B Natriuret Pep (<300) pg/mL Serum Total Protein (6.3-8.2) g/dL Albumin (3.5-5.0) g/dL Prealbumin (17.6-36.0) mg/dL Urine Color (Yellow) Urine Appearance (Clear) Urine pH (4.6-8.0) Ur Specific [place] (1.005-1.030) Urine Protein (Negative) Urine Glucose (UA) (Negative) mg/dL Urine Ketones (Negative) Urine Blood (Negative) Urine Nitrite (Negative) Urine Bilirubin (Negative) Urine Urobilinogen (0.2) mg/dL Ur Leukocyte Esterase (Negative) U Hyaline Cast (Auto) (0-2) /LPF Urine Microscopic RBC (0-5) /HPF Urine Microscopic WBC (0-5) /HPF Ur Epithelial Cells (None Seen) /HPF Urine Bacteria (None Seen) /HPF Urine Culture Reflexed (NO) Valproic Acid (50-100) ug/mL Influenza Type A Ag (NEGATIVE) Influenza Type B Ag (NEGATIVE) RSV (PCR) (NEGATIVE) SARS-CoV-2 (PCR) (NEGATIVE) 05/03/25 05/03/25 05/03/25 Range/Units 04:32 04:32 07:06 WBC (3.98-10.04) x10^3/uL RBC (3.93-5.22) x10^6/uL Hgb (11.2-15.7) g/dL Hct (34.1-44.9) % MCV (79.4-94.8) fL MCH (25.6-32.2) pg MCHC (32.2-35.5) g/dL RDW (11.7-14.4) % Plt Count (182-369) x10^3/uL MPV (9.4-12.3) fL Gran % (34.0-71.1) % Immature Gran % (Auto) (0.001-0.429) % Nucleat RBC Rel Count (0.00-0.2) % Eos # (Auto) (0.04-0.36) x10^3/uL Immature Gran # (Auto) (0.001-0.031) x10^3u/L Absolute Lymphs (auto) (1.18-3.74) x10^3/uL Absolute Monos (auto) (0.24-0.86) x10^3/uL Absolute Nucleated RBC (0.00-0.012) x10^3u/L Lymphocytes % (19.3-51.7) % Monocytes % (4.7-12.5) % Eosinophils % (0.7-5.8) % Basophils % (0.1-1.2) % Absolute Granulocytes (1.56-6.13) x10^3/uL Basophils # (0.01-0.08) x10^3/uL Puncture Site pCO2 (35-45) mmHg pO2 (75-100) mmHg Base Excess (-2.0-2.0) O2 Saturation (94-100) g/dF ABG pH (7.35-7.45) ABG HCO3 (22-28) ABG O2 Sat (Measured) (95-100) % Francesco Test A-a Gradient a/A Ratio Hemoglobin Carboxyhemoglobin (0.0-6.9) % THgb Methemoglobin (1.4-1.5) % Potassium 4.0 (3.5-5.1) Temperature C POC O2 Flow Rate % Sodium 140 (135-145) mmol/L Chloride 106 (98-107) mmol/L Carbon Dioxide 29 (22-30) mmol/L Anion Gap 9.0 (5-15) MEQ/L BUN 30 H (7-17) mg/dL Creatinine 1.40 H (0.52-1.04) mg/dL Estimated GFR 38.8 ML/MIN Glucose 139 H (74-106) mg/dL POC Glucometer 113 H (74 to 106) mg/dL Lactic Acid (0.4-2.0) Calcium 8.1 L (8.4-10.2) mg/dL Magnesium (1.6-2.3) mg/dL Total Bilirubin 0.60 (0.2-1.3) mg/dL AST 41 H (14-36) U/L ALT 25 (0-35) U/L Alkaline Phosphatase 68 (38-126) U/L Troponin I (0.000-0.033) ng/mL NT-Pro-B Natriuret Pep 2310 (<300) pg/mL Serum Total Protein 5.8 L (6.3-8.2) g/dL Albumin 3.1 L (3.5-5.0) g/dL Prealbumin 14.07 L (17.6-36.0) mg/dL Urine Color (Yellow) Urine Appearance (Clear) Urine pH (4.6-8.0) Ur Specific [place] (1.005-1.030) Urine Protein (Negative) Urine Glucose (UA) (Negative) mg/dL Urine Ketones (Negative) Urine Blood (Negative) Urine Nitrite (Negative) Urine Bilirubin (Negative) Urine Urobilinogen (0.2) mg/dL Ur Leukocyte Esterase (Negative) U Hyaline Cast (Auto) (0-2) /LPF Urine Microscopic RBC (0-5) /HPF Urine Microscopic WBC (0-5) /HPF Ur Epithelial Cells (None Seen) /HPF Urine Bacteria (None Seen) /HPF Urine Culture Reflexed (NO) Valproic Acid (50-100) ug/mL Influenza Type A Ag (NEGATIVE) Influenza Type B Ag (NEGATIVE) RSV (PCR) (NEGATIVE) SARS-CoV-2 (PCR) (NEGATIVE) 05/03/25 Range/Units 08:31 WBC (3.98-10.04) x10^3/uL RBC (3.93-5.22) x10^6/uL Hgb (11.2-15.7) g/dL Hct (34.1-44.9) % MCV (79.4-94.8) fL MCH (25.6-32.2) pg MCHC (32.2-35.5) g/dL RDW (11.7-14.4) % Plt Count (182-369) x10^3/uL MPV (9.4-12.3) fL Gran % (34.0-71.1) % Immature Gran % (Auto) (0.001-0.429) % Nucleat RBC Rel Count (0.00-0.2) % Eos # (Auto) (0.04-0.36) x10^3/uL Immature Gran # (Auto) (0.001-0.031) x10^3u/L Absolute Lymphs (auto) (1.18-3.74) x10^3/uL Absolute Monos (auto) (0.24-0.86) x10^3/uL Absolute Nucleated RBC (0.00-0.012) x10^3u/L Lymphocytes % (19.3-51.7) % Monocytes % (4.7-12.5) % Eosinophils % (0.7-5.8) % Basophils % (0.1-1.2) % Absolute Granulocytes (1.56-6.13) x10^3/uL Basophils # (0.01-0.08) x10^3/uL Puncture Site pCO2 (35-45) mmHg pO2 (75-100) mmHg Base Excess (-2.0-2.0) O2 Saturation (94-100) g/dF ABG pH (7.35-7.45) ABG HCO3 (22-28) ABG O2 Sat (Measured) (95-100) % Francesco Test A-a Gradient a/A Ratio Hemoglobin Carboxyhemoglobin (0.0-6.9) % THgb Methemoglobin (1.4-1.5) % Potassium (3.5-5.1) Temperature C POC O2 Flow Rate % Sodium (135-145) mmol/L Chloride (98-107) mmol/L Carbon Dioxide (22-30) mmol/L Anion Gap (5-15) MEQ/L BUN (7-17) mg/dL Creatinine (0.52-1.04) mg/dL Estimated GFR ML/MIN Glucose (74-106) mg/dL POC Glucometer (74 to 106) mg/dL Lactic Acid (0.4-2.0) Calcium (8.4-10.2) mg/dL Magnesium (1.6-2.3) mg/dL Total Bilirubin (0.2-1.3) mg/dL AST (14-36) U/L ALT (0-35) U/L Alkaline Phosphatase (38-126) U/L Troponin I (0.000-0.033) ng/mL NT-Pro-B Natriuret Pep (<300) pg/mL Serum Total Protein (6.3-8.2) g/dL Albumin (3.5-5.0) g/dL Prealbumin (17.6-36.0) mg/dL Urine Color Yellow (Yellow) Urine Appearance Clear (Clear) Urine pH 5.5 (4.6-8.0) Ur Specific [place] 1.015 (1.005-1.030) Urine Protein Negative (Negative) Urine Glucose (UA) Negative (Negative) mg/dL Urine Ketones Negative (Negative) Urine Blood Negative (Negative) Urine Nitrite Negative (Negative) Urine Bilirubin Negative (Negative) Urine Urobilinogen 1.0 A (0.2) mg/dL Ur Leukocyte Esterase Small A (Negative) U Hyaline Cast (Auto) 3-5 A (0-2) /LPF Urine Microscopic RBC 0-2 (0-5) /HPF Urine Microscopic WBC 0-2 (0-5) /HPF Ur Epithelial Cells None Seen (None Seen) /HPF Urine Bacteria None Seen (None Seen) /HPF Urine Culture Reflexed NO (NO) Valproic Acid (50-100) ug/mL Influenza Type A Ag (NEGATIVE) Influenza Type B Ag (NEGATIVE) RSV (PCR) (NEGATIVE) SARS-CoV-2 (PCR) (NEGATIVE) Radiology Exams: Radiology Procedures Category Date Time Status CHEST 1 VIEW (PORTABLE) Stat Exams 05/02/25 20:01 Completed Medications: Medications Generic Name Dose Route Start Last Admin Trade Name Freq PRN Reason Stop Dose Admin Acetaminophen 650 mg 05/02/25 22:58 Acetaminophen 325 Mg Tablet PO 06/01/25 22:57 Q4H PRN PRN PAIN, FEVER, HEADACHE Allopurinol 100 mg 05/03/25 10:00 Allopurinol 100 Mg Tablet PO 06/02/25 09:59 DAILY [facility] Artificial Tears 0 ml 05/03/25 10:00 Carboxymethylcellulose Sodium 15 Ml Bottle OP 06/02/25 09:59 TID [facility] Aspirin 81 mg 05/03/25 22:00 Aspirin 81 Mg Tablet.Ec PO 06/02/25 21:59 QHS [facility] Bisacodyl 10 mg 05/03/25 07:34 Bisacodyl 10 Mg Supp.Rect RC 06/02/25 07:33 Q5D PRN CONSTIPATION Divalproex Sodium 500 mg 05/03/25 22:00 Divalproex Sodium 250 Mg Tab Extended Release PO 06/02/25 21:59 HS [facility] Gabapentin 300 mg 05/03/25 10:00 Gabapentin 300 Mg Capsule PO 06/02/25 09:59 TID [facility] Gentamicin Sulfate 0 gm 05/03/25 10:00 Gentamicin 0.1% Cream 30 Gm Cream..G. TP 06/02/25 09:59 BID [facility] Insulin Glargine 20 unit 05/03/25 10:00 Insulin Glargine 1 Unit SQ 06/02/25 09:59 BID [facility] Insulin Human Lispro 0 unit 05/03/25 01:01 Insulin Lispro 1 Unit SQ 06/02/25 01:00 UD PRN HYPERGLYCEMIA Levothyroxine Sodium 25 mcg 05/03/25 07:00 05/03/25 06:47 Levothyroxine Sodium 25 Mcg Tablet PO 06/02/25 06:59 25 mcg QAM@0700 [facility] Administration Loratadine 10 mg 05/03/25 22:00 Loratadine 10 Mg Tablet PO 06/02/25 21:59 HS [facility] Magnesium Hydroxide 10 ml 05/03/25 08:10 Magnesium Hydroxide 30 Ml Udcup PO 06/02/25 08:09 DAILY PRN PRN CONSTIPATION Melatonin 3 mg 05/03/25 22:00 Melatonin 3 Mg Tablet PO 06/02/25 21:59 QHS [facility] Miscellaneous Information 1 each 05/03/25 08:15 Medication Intervention 1 Each Each 06/02/25 08:14 .RN TO CHECK [facility] Nitroglycerin 0.4 mg 05/03/25 07:34 Nitroglycerin 0.4 Mg Tablet Bottle SL 06/02/25 07:33 Q5MIN PRN MR X 3 PRN CHEST PAIN Nystatin 15 gm 05/03/25 10:00 Nystatin 15 Gm Powder TP 06/02/25 09:59 BID [facility] Pramipexole Dihydrochloride 1 mg 05/03/25 10:00 Pramipexole Di-Hcl 0.5 Mg Tab PO 06/02/25 09:59 TID [facility] Pregabalin 50 mg 05/03/25 10:00 Pregabalin 50 Mg Capsule PO 06/02/25 09:59 TID [facility] Propranolol HCl 80 mg 05/03/25 10:00 Propranolol Hcl 20 Mg Tablet PO 06/02/25 09:59 DAILY [facility] Rivaroxaban 20 mg 05/03/25 10:00 Rivaroxaban 10 Mg Tablet PO 06/02/25 09:59 DAILY [facility] Sertraline HCl 100 mg 05/03/25 22:00 Sertraline Hcl 50 Mg Tab PO 06/02/25 21:59 HS [facility] Simvastatin 40 mg 05/03/25 22:00 Simvastatin 20 Mg Tablet PO 06/02/25 21:59 QHS [facility] Discontinued Medications Generic Name Dose Route Start Last Admin Trade Name Enedina PRN Reason Stop Dose Admin Albuterol/Ipratropium 3 ml 05/02/25 20:30 05/02/25 20:32 Ipratropium/Albuterol Sulfate 3 Ml Ampul.Neb IH 05/02/25 20:31 3 ml STAT ONE Administration Albuterol/Ipratropium Confirm 05/02/25 20:31 Ipratropium/Albuterol Sulfate 3 Ml Ampul.Neb Administered 05/02/25 20:32 Dose 3 ml IH .STK-MED ONE Aspirin 81 mg 05/03/25 10:00 Aspirin 81 Mg Tablet.Ec PO 06/02/25 09:59 DAILY [facility] Atorvastatin Calcium 80 mg 05/03/25 22:00 Atorvastatin Calcium 40 Mg Tablet PO 06/02/25 21:59 QPM [facility] Furosemide 40 mg 05/02/25 21:33 05/02/25 21:45 Furosemide 40 Mg/4 Ml Vial IV 05/02/25 21:34 40 mg STAT ONE Administration Furosemide Confirm 05/02/25 21:39 Furosemide 40 Mg/4 Ml Vial Administered 05/02/25 21:40 Dose 40 mg .ROUTE .STK-MED ONE Furosemide 60 mg 05/03/25 06:00 05/03/25 05:55 Furosemide 100 Mg/10 Ml Vial IV 05/03/25 06:01 60 mg ONCE ONE Administration Gabapentin 300 mg 05/03/25 10:00 Gabapentin 300 Mg Capsule PO 06/02/25 09:59 TID [facility] Ceftriaxone Sodium 1 gm in 100 mls @ 200 mls/hr 05/02/25 21:34 05/02/25 22:19 Rocephin 1 Gm / 100 Ml Nacl IV 05/02/25 22:03 Infused STAT ONE Infusion Sodium Chloride 500 mls @ 500 mls/hr 05/02/25 21:36 05/02/25 21:43 Sodium Chloride 0.9% 500 Ml IV 05/02/25 22:35 500 mls/hr .Q1H ONE Administration Ceftriaxone Sodium Confirm 05/02/25 21:40 Rocephin 1 Gm / 100 Ml Nacl Administered 05/02/25 21:41 Dose 1 gm in 100 mls @ ud IV .STK-MED ONE Sodium Chloride Confirm 05/02/25 21:40 Sodium Chloride 0.9% 500 Ml Administered 05/02/25 21:41 Dose 500 mls @ ud IV .STK-MED ONE Ceftriaxone Sodium 1 gm in 100 mls @ 200 mls/hr 05/02/25 22:00 05/02/25 22:08 Rocephin 1 Gm / 100 Ml Nacl IV 06/01/25 21:59 Not Given Q24H [facility] Azithromycin 500 mg/ Sodium 250 mls @ 250 mls/hr 05/03/25 10:00 Chloride IV 06/02/25 09:59 Q24H10 [facility] Ceftriaxone Sodium 1 gm in 100 mls @ 200 mls/hr 05/03/25 22:00 Rocephin 1 Gm / 100 Ml Nacl IV 06/01/25 21:59 QPM [facility] Ceftriaxone Sodium 1 gm in 100 mls @ 200 mls/hr 05/03/25 22:00 Rocephin 1 Gm / 100 Ml Nacl IV 06/02/25 21:59 QPM [facility] Azithromycin 500 mg/ Sodium 250 mls @ 250 mls/hr 05/03/25 10:00 Chloride IV 06/02/25 09:59 Q24H10 [facility] Insulin Glargine 20 unit 05/03/25 10:00 Insulin Glargine 1 Unit SQ 06/02/25 09:59 BID [facility] Insulin Human Regular 0 unit 05/02/25 22:58 Insulin Regular, Human 1 Unit SQ 06/01/25 22:57 UD PRN HYPERGLYCEMIA Non-Formulary Medication 1 each 05/03/25 07:33 Pharmacy Dosing Request 05/03/25 07:34 STAT ONE Non-Formulary Medication 1 each 05/03/25 08:05 Pharmacy Dosing Request 05/03/25 08:06 STAT ONE Propranolol HCl 80 mg 05/03/25 10:00 Propranolol Hcl 20 Mg Tablet PO 06/02/25 09:59 DAILY [facility] Rivaroxaban 20 mg 05/03/25 22:00 Rivaroxaban 10 Mg Tablet PO 06/02/25 21:59 QPM [facility] Multi-Disciplinary Progress Notes: Multi-Disciplinary Progress Notes 05/03/25 08:13 Respiratory Note by Rosaura Agarwal Patient was on RA at rest and O2 sat 88% on RA at rest. Patient placed on O2 at 3lpm per NC and O2 sat increased to 95% on O2 at 3lpm per NC at rest. Initialized on 05/03/25 08:13 - END OF NOTE Assessment/Plan (1) Acute respiratory failure with hypoxemia Current Visit: Yes Status: Acute Assessment & Plan: -Baseline on room air, now requiring 3 L O2 to maintain adequate saturations spo2 goal > 91% -Exam notable for coarse crackles and expiratory wheezes. -Findings reflect combined contributions of pulmonary edema and possible aspiration pneumonia: Continue Zosyn (see plan for CHF below) -Solumedrol 40mg bid Code(s): J96.01 - ACUTE RESPIRATORY FAILURE WITH HYPOXIA (2) Aspiration pneumonia Current Visit: Yes Status: Acute Assessment & Plan: -Recent EGD and dysphagia places her at high aspiration risk. -Continue mechanical soft diet -CXR shows a right lower lobe infiltrate. -Ceftriaxone/azith changed to Zosyn -solumedrol -Supplemental oxygen as needed to maintain spo2 goal > 91% -nebs/inh as needed Code(s): J69.0 - PNEUMONITIS DUE TO INHALATION OF FOOD AND VOMIT (3) CHF (congestive heart failure) Current Visit: Yes Status: Chronic Assessment & Plan: -Chest X-ray demonstrates bilateral ground-glass opacities -Patient received IV Lasix 60 mg this morning with good urine output and improvement in peripheral congestion. -No peripheral edema on exam, though creatinine is uptrending; diuretics held today with plan to resume home regimen tomorrow. Code(s): I50.9 - HEART FAILURE, UNSPECIFIED (4) ELIS (acute kidney injury) Current Visit: No Status: Acute Assessment & Plan: -Serum creatinine has increased from baseline 0.91.0 up to 1.40. -Likely multifactorial: diuretic therapy, volume shifts, possible cardiorenal component. -Diuretics temporarily held; BP soft and renal function uptrending Code(s): N17.9 - ACUTE KIDNEY FAILURE, UNSPECIFIED (5) Afib Current Visit: No Status: Chronic Assessment & Plan: continue metoprolol/xarelto -Pacemaker Code(s): I48.91 - UNSPECIFIED ATRIAL FIBRILLATION (6) CAD (coronary artery disease) Current Visit: No Status: Chronic Assessment & Plan: -with stent placement -continue home meds Code(s): I25.10 - ATHSCL HEART DISEASE OF [place] CORONARY ARTERY W/O ANG PCTRS (7) History of DVT (deep vein thrombosis) Current Visit: No Status: Chronic Assessment & Plan: -continue xarelto Code(s): Z86.718 - PERSONAL HISTORY OF OTHER VENOUS THROMBOSIS AND EMBOLISM (8) Morbid obesity with BMI of 45.0-49.9, adult Current Visit: No Status: Chronic Assessment & Plan: -advised diet and exercise when able Code(s): E66.01 - MORBID (SEVERE) OBESITY DUE TO EXCESS CALORIES; Z68.42 - BODY MASS INDEX [BMI] 45.0-49.9, ADULT (9) Type 2 diabetes mellitus Current Visit: No Status: Chronic Assessment & Plan: -ADA mechanical soft diet -SSI /glargine -A1c (10) History of TIA (transient ischemic attack) Current Visit: Yes Status: Acute Assessment & Plan: -H/o TIA and baseline dementia - continue home meds Code(s): Z86.73 - PRSNL HX OF TIA (TIA), AND CEREB INFRC W/O RESID DEFICITS (11) Hypothyroid Current Visit: Yes Status: Acute Assessment & Plan: -continue levothyroxine VTE: Xarelto PPI: Protonix Next of Kin: Lilly Verdin -alaina - [phone] Dispo: 2-3 days Plan of care time spent > 35 mins Code(s): E03.9 - HYPOTHYROIDISM, UNSPECIFIED
[2025-05-03] MEDS: Lantus Insulin SQ SCH (09:19)
[2025-05-03] MEDS: NYSTOP POWDER 15 GM TP SCH (09:21)
[2025-05-03] MEDS: Artificial Tears 15 ML OP SCH (09:21)
[2025-05-03] MEDS: Mirapex 0.5 MG Tablet PO SCH (09:21)
[2025-05-03] MEDS: Inderal PO SCH (09:22)
[2025-05-03] MEDS: ZYLOPRIM 100 MG PO SCH (09:22)
[2025-05-03] MEDS: NEURONTIN PO SCH (09:22)
[2025-05-03] MEDS: Lyrica 50MG PO SCH (09:22)
[2025-05-03] MEDS: GENTAMICIN SULFATE 0.1% CREAM TP SCH (09:22)
[2025-05-03] MEDS ORDERED: Xopenex 1.25 MG/0.5 ML UD NEBULE IH PRN (09:26)
[2025-05-03] MEDS ORDERED: Zofran 4 MG/2 ML VIAL IV PRN (09:26)
[2025-05-03] MEDS: XARELTO 10 MG TABLET PO SCH (09:40)
[2025-05-03] MEDS ORDERED: Sodium Chloride 3 ML UD NEBULES IH SCH (09:45)
[2025-05-03] MEDS: solu-MEDROL 40 MG, Sterile H2O 10 ml 1 ML IV SCH (09:50)
[2025-05-03] MEDS ORDERED: AMITIZA PO SCH (10:00)
[2025-05-03] MEDS ORDERED: NEURONTIN PO SCH (10:00)
[2025-05-03] MEDS ORDERED: Inderal PO SCH (10:00)
[2025-05-03] MEDS ORDERED: NON-FORMULARY ITEM (Levothyroxine Sodium [Levothyroxine Sodium] 25 MCG Capsule) PO SCH (10:00)
[2025-05-03] MEDS ORDERED: Lantus Insulin SQ SCH (10:00)
[2025-05-03] MEDS ORDERED: ECOTRIN 81 MG PO SCH (10:00)
[2025-05-03] MEDS ORDERED: ZITHROMAX IV*** 500 MG in Sodium Chloride 0.9% 250 ML 250 ML IV SCH (10:00)
[2025-05-03] MEDS: ZOCOR 20MG PO SCH (21:12)
[2025-05-03] MEDS: ECOTRIN 81 MG PO SCH (21:12)
[2025-05-03] MEDS: CLARITIN 10 MG PO SCH (21:13)
[2025-05-03] MEDS: MELATONIN PO SCH (21:13)
[2025-05-03] MEDS: Depakote EXTENDED RELEASE 250 MG PO SCH (21:16)
[2025-05-03] MEDS: ZOLOFT 50 MG TABLET PO SCH (21:20)
[2025-05-03] MEDS ORDERED: XARELTO 10 MG TABLET PO SCH (22:00)
[2025-05-03] MEDS ORDERED: LIPITOR 40MG PO SCH (22:00)
[2025-05-03] MEDS ORDERED: ROCEPHIN 1 GM / 100 ML NaCl 1 GM/100 ML IVPB IV SCH ×2 (22:00)
[2025-05-03] MEDS: HUMALOG SQ PRN (22:04)
--- NOTE | 2025-05-04 05:07 | PCM.NOTE ---
Date and Time: 05/04/25 0506 Subjective Assessment: Ms. Verdin is a 79-year-old woman presenting from a nursing facility after undergoing an EGD earlier today for suspected esophageal stricture. She tolerated the procedure itself, but approximately one hour later developed hypoxia, prompting initiation of supplemental oxygen via nasal cannula. On arrival, her primary complaint is shortness of breath, with several days of worsening orthopnea and bilateral lower extremity edema. She also describes progressive dysphagia with frequent choking episodes but denies subjective fevers, chills, or productive cough. On exam and review of data, she appears volume overloaded. Labs on 05/03 reveal leukocytosis (WBC 14.3 - 13.1), anemia (Hgb 10.5 -from 12.0), and renal function slightly above baseline (creatinine 1.40, baseline 0.91.0). Troponin is mildly elevated but downtrending (0.049 - 0.045), suggesting demand-related ischemia rather than acute coronary syndrome. Blood pressure has been running soft; she required a 500 mL IV fluid bolus in the ED. Portable chest radiograph demonstrates new right lower lung base consolidation consistent with aspiration or pneumonia, along with diffuse bilateral groundglass opacities possibly reflecting pulmonary edema. Her past history is significant for hypertension, hyperlipidemia, transient ischemic attack, Crohns disease, irritable bowel syndrome, migraines, diabetes mellitus, and possible prior DVT on anticoagulation. 05/03: Patient was seen at the bedside. She continues to experience shortness of breath along with a dry, nonproductive cough. At baseline she is on room air, but currently requires 3 L supplemental oxygen. On auscultation she demonstrates coarse crackles and expiratory wheezing. She receives ongoing podiatry care for chronic bilateral lower extremity issues and currently has compression dressings in place. This morning she was administered IV Lasix 60 mg with good diuresis, and there is trace edema appreciated on exam. Creatinine is noted to be rising; diuretics will be held today with plans to resume her home regimen tomorrow. Antibiotic therapy has been broadened to piperacillin-tazobactam for aspiration coverage. 05/04/25: Patient evaluated at bedside, continues to endorse dyspnea and productive cough. Oxygen has been successfully weaned to 2 L via nasal cannula, though she remains symptomatic. Pulmonary exam reveals coarse crackles throughout with scattered expiratory wheezes, consistent with ongoing volume overload and airway inflammation. She has demonstrated a 5-lb weight gain overnight with concurrent rise in creatinine to 1.36, above her baseline, suggesting both fluid retention and some degree of renal stress. Given these findings, diuresis will be resumed with close monitoring of renal function and urine output. Current antibiotic regimen will be continued for infectious coverage given persistent cough and pulmonary findings. Patient remains on a mechanical soft diet with ground meats for safety and tolerance. - Review of Systems Constitutional: No Symptoms Eyes: No Symptoms Ears, Nose, & Throat: No Symptoms Respiratory: Cough, Short Of Breath, Wheezing Cardiac: No Symptoms Abdominal/Gastrointestinal: No Symptoms Genitourinary Symptoms: No Symptoms Musculoskeletal: No Symptoms Neurological: No Symptoms Psychological: No Symptoms Endocrine: No Symptoms Hematologic/Lymphatic: No Symptoms Immunological/Allergic: No Symptoms Objective Exam General Appearance: no apparent distress Neurologic Exam: alert, oriented x 3, cooperative Skin Exam: normal color Wound Assessment: Skin/Wound Assessment Wound/Incision Assessment Start: 05/02/25 2 3:43 Text: Status: Active Freq: Q6H Protocol: Document 05/04/25 02:00 KD (Rec: 05/04/25 02:46 KD [id number]) Wound/Incision Assessment Bilateral Lower Legs Wound Assessment Shift Assessment Dressing Status Dry & Intact Comment CRUZ, wrapped per Dr. Tran on 05/01/25; CDI - remains true Bilateral Breast Folds Wound Assessment Shift Assessment Wound Type Gaulding Wound Stage Non Pressure Wound Drainage Amount None General Appearance Open to air,Reddened Comment Nystatin powder applied per orders - remains true Bilateral Abdominal Folds Wound Assessment Shift Assessment Wound Type Gaulding Wound Stage Non Pressure Wound Drainage Amount None General Appearance Open to air,Reddened Comment Nystatin powder applied per orders - remains true Sacrum Wound Assessment Shift Assessment Wound Type Pressure Ulcer Wound Stage Stage II Drainage Amount None General Appearance Open to air,Reddened Length (cm) (cm) 0.3 Width (cm) (cm) 0.3 Surrounding Tissue Dark Red Comment Barrier cream & zinc ointment applied PRN - remains true Wound Photo Photo Taken No Eye Exam: PERRL Ears, Nose, Throat Exam: normal ENT inspection Neck Exam: normal inspection Respiratory Exam: crackles/rales, wheezing Cardiovascular Exam: normal heart sounds, irregular Gastrointestinal/Abdomen Exam: soft, normal bowel sounds Extremity Exam: swelling (1+ pitting BLE- thigh area above compression dressings) Back Exam: normal inspection Pelvic Exam: deferred Rectal Exam: deferred Objective Data Vital Signs: Vital Signs - 24 hr Temp Pulse Resp BP Pulse Ox 05/04/25 03:26 97.4 F 71 20 137/66 98 05/03/25 22:52 98.2 F 93 H 19 114/60 95 05/03/25 20:00 98.3 F 60 15 115/57 98 05/03/25 16:00 98.0 F 93 H 20 123/68 97 05/03/25 11:58 98.1 F 60 16 105/57 98 05/03/25 09:26 74 20 95 05/03/25 08:12 95 05/03/25 07:26 97.9 F 73 22 92/51 99 Pain Assessment - Last Documented Pain Intensity 0 Intake and Output: Intake & Output 05/01/25 05/02/25 05/03/25 05/04/25 11:59 11:59 11:59 11:59 Intake Total 456 200 Output Total 225 1050 Balance 231 -850 Weight 134.9 kg Lab Results: Lab Results-Last 24 Hours 05/03/25 05/03/25 05/03/25 Range/Units 04:32 04:32 04:32 WBC 14.3 H (3.98-10.04) x10^3/uL RBC 3.30 L (3.93-5.22) x10^6/uL Hgb 10.5 L (11.2-15.7) g/dL Hct 33.8 L (34.1-44.9) % MCV 102.4 H (79.4-94.8) fL MCH 31.8 (25.6-32.2) pg MCHC 31.1 L (32.2-35.5) g/dL RDW 14.2 (11.7-14.4) % Plt Count 168 L (182-369) x10^3/uL MPV 10.7 (9.4-12.3) fL Gran % 80.6 H (34.0-71.1) % Immature Gran % (Auto) 0.5 H (0.001-0.429) % Nucleat RBC Rel Count 0.0 (0.00-0.2) % Eos # (Auto) 0 L (0.04-0.36) x10^3/uL Immature Gran # (Auto) 0.07 H (0.001-0.031) x10^3u/L Absolute Lymphs (auto) 1.83 (1.18-3.74) x10^3/uL Absolute Monos (auto) 0.84 (0.24-0.86) x10^3/uL Absolute Nucleated RBC 0.00 (0.00-0.012) x10^3u/L Lymphocytes % 12.8 L (19.3-51.7) % Monocytes % 5.9 (4.7-12.5) % Eosinophils % 0.0 L (0.7-5.8) % Basophils % 0.2 (0.1-1.2) % Absolute Granulocytes 11.49 H (1.56-6.13) x10^3/uL Basophils # 0.03 (0.01-0.08) x10^3/uL Sodium 140 (135-145) mmol/L Potassium 4.0 (3.5-5.1) mmol/L Chloride 106 (98-107) mmol/L Carbon Dioxide 29 (22-30) mmol/L Anion Gap 9.0 (5-15) MEQ/L BUN 30 H (7-17) mg/dL Creatinine 1.40 H (0.52-1.04) mg/dL Estimated GFR 38.8 ML/MIN Glucose 139 H (74-106) mg/dL POC Glucometer (74 to 106) mg/dL Calcium 8.1 L (8.4-10.2) mg/dL Total Bilirubin 0.60 (0.2-1.3) mg/dL AST 41 H (14-36) U/L ALT 25 (0-35) U/L Alkaline Phosphatase 68 (38-126) U/L Troponin I 0.045 H* (0.000-0.033) ng/mL NT-Pro-B Natriuret Pep 2310 (<300) pg/mL Serum Total Protein 5.8 L (6.3-8.2) g/dL Albumin 3.1 L (3.5-5.0) g/dL Prealbumin (17.6-36.0) mg/dL Urine Color (Yellow) Urine Appearance (Clear) Urine pH (4.6-8.0) Ur Specific [place] (1.005-1.030) Urine Protein (Negative) Urine Glucose (UA) (Negative) mg/dL Urine Ketones (Negative) Urine Blood (Negative) Urine Nitrite (Negative) Urine Bilirubin (Negative) Urine Urobilinogen (0.2) mg/dL Ur Leukocyte Esterase (Negative) U Hyaline Cast (Auto) (0-2) /LPF Urine Microscopic RBC (0-5) /HPF Urine Microscopic WBC (0-5) /HPF Ur Epithelial Cells (None Seen) /HPF Urine Bacteria (None Seen) /HPF Urine Culture Reflexed (NO) 05/03/25 05/03/25 05/03/25 Range/Units 04:32 07:06 08:31 WBC (3.98-10.04) x10^3/uL RBC (3.93-5.22) x10^6/uL Hgb (11.2-15.7) g/dL Hct (34.1-44.9) % MCV (79.4-94.8) fL MCH (25.6-32.2) pg MCHC (32.2-35.5) g/dL RDW (11.7-14.4) % Plt Count (182-369) x10^3/uL MPV (9.4-12.3) fL Gran % (34.0-71.1) % Immature Gran % (Auto) (0.001-0.429) % Nucleat RBC Rel Count (0.00-0.2) % Eos # (Auto) (0.04-0.36) x10^3/uL Immature Gran # (Auto) (0.001-0.031) x10^3u/L Absolute Lymphs (auto) (1.18-3.74) x10^3/uL Absolute Monos (auto) (0.24-0.86) x10^3/uL Absolute Nucleated RBC (0.00-0.012) x10^3u/L Lymphocytes % (19.3-51.7) % Monocytes % (4.7-12.5) % Eosinophils % (0.7-5.8) % Basophils % (0.1-1.2) % Absolute Granulocytes (1.56-6.13) x10^3/uL Basophils # (0.01-0.08) x10^3/uL Sodium (135-145) mmol/L Potassium (3.5-5.1) mmol/L Chloride (98-107) mmol/L Carbon Dioxide (22-30) mmol/L Anion Gap (5-15) MEQ/L BUN (7-17) mg/dL Creatinine (0.52-1.04) mg/dL Estimated GFR ML/MIN Glucose (74-106) mg/dL POC Glucometer 113 H (74 to 106) mg/dL Calcium (8.4-10.2) mg/dL Total Bilirubin (0.2-1.3) mg/dL AST (14-36) U/L ALT (0-35) U/L Alkaline Phosphatase (38-126) U/L Troponin I (0.000-0.033) ng/mL NT-Pro-B Natriuret Pep (<300) pg/mL Serum Total Protein (6.3-8.2) g/dL Albumin (3.5-5.0) g/dL Prealbumin 14.07 L (17.6-36.0) mg/dL Urine Color Yellow (Yellow) Urine Appearance Clear (Clear) Urine pH 5.5 (4.6-8.0) Ur Specific [place] 1.015 (1.005-1.030) Urine Protein Negative (Negative) Urine Glucose (UA) Negative (Negative) mg/dL Urine Ketones Negative (Negative) Urine Blood Negative (Negative) Urine Nitrite Negative (Negative) Urine Bilirubin Negative (Negative) Urine Urobilinogen 1.0 A (0.2) mg/dL Ur Leukocyte Esterase Small A (Negative) U Hyaline Cast (Auto) 3-5 A (0-2) /LPF Urine Microscopic RBC 0-2 (0-5) /HPF Urine Microscopic WBC 0-2 (0-5) /HPF Ur Epithelial Cells None Seen (None Seen) /HPF Urine Bacteria None Seen (None Seen) /HPF Urine Culture Reflexed NO (NO) 05/03/25 05/03/25 05/03/25 Range/Units 11:20 16:13 21:57 WBC (3.98-10.04) x10^3/uL RBC (3.93-5.22) x10^6/uL Hgb (11.2-15.7) g/dL Hct (34.1-44.9) % MCV (79.4-94.8) fL MCH (25.6-32.2) pg MCHC (32.2-35.5) g/dL RDW (11.7-14.4) % Plt Count (182-369) x10^3/uL MPV (9.4-12.3) fL Gran % (34.0-71.1) % Immature Gran % (Auto) (0.001-0.429) % Nucleat RBC Rel Count (0.00-0.2) % Eos # (Auto) (0.04-0.36) x10^3/uL Immature Gran # (Auto) (0.001-0.031) x10^3u/L Absolute Lymphs (auto) (1.18-3.74) x10^3/uL Absolute Monos (auto) (0.24-0.86) x10^3/uL Absolute Nucleated RBC (0.00-0.012) x10^3u/L Lymphocytes % (19.3-51.7) % Monocytes % (4.7-12.5) % Eosinophils % (0.7-5.8) % Basophils % (0.1-1.2) % Absolute Granulocytes (1.56-6.13) x10^3/uL Basophils # (0.01-0.08) x10^3/uL Sodium (135-145) mmol/L Potassium (3.5-5.1) mmol/L Chloride (98-107) mmol/L Carbon Dioxide (22-30) mmol/L Anion Gap (5-15) MEQ/L BUN (7-17) mg/dL Creatinine (0.52-1.04) mg/dL Estimated GFR ML/MIN Glucose (74-106) mg/dL POC Glucometer 113 H 203 H 238 H (74 to 106) mg/dL Calcium (8.4-10.2) mg/dL Total Bilirubin (0.2-1.3) mg/dL AST (14-36) U/L ALT (0-35) U/L Alkaline Phosphatase (38-126) U/L Troponin I (0.000-0.033) ng/mL NT-Pro-B Natriuret Pep (<300) pg/mL Serum Total Protein (6.3-8.2) g/dL Albumin (3.5-5.0) g/dL Prealbumin (17.6-36.0) mg/dL Urine Color (Yellow) Urine Appearance (Clear) Urine pH (4.6-8.0) Ur Specific [place] (1.005-1.030) Urine Protein (Negative) Urine Glucose (UA) (Negative) mg/dL Urine Ketones (Negative) Urine Blood (Negative) Urine Nitrite (Negative) Urine Bilirubin (Negative) Urine Urobilinogen (0.2) mg/dL Ur Leukocyte Esterase (Negative) U Hyaline Cast (Auto) (0-2) /LPF Urine Microscopic RBC (0-5) /HPF Urine Microscopic WBC (0-5) /HPF Ur Epithelial Cells (None Seen) /HPF Urine Bacteria (None Seen) /HPF Urine Culture Reflexed (NO) Radiology Exams: Radiology Procedures Category Date Time Status CHEST 1 VIEW (PORTABLE) Stat Exams 05/02/25 20:01 Completed Medications: Medications Generic Name Dose Route Start Last Admin Trade Name Freq PRN Reason Stop Dose Admin Acetaminophen 650 mg 05/02/25 22:58 Acetaminophen 325 Mg Tablet PO 06/01/25 22:57 Q4H PRN PRN PAIN, FEVER, HEADACHE Allopurinol 100 mg 05/03/25 10:00 05/03/25 09:22 Allopurinol 100 Mg Tablet PO 06/02/25 09:59 100 mg DAILY CORNELIA Administration Artificial Tears 0 ml 05/03/25 10:00 05/03/25 21:16 Carboxymethylcellulose Sodium 15 Ml Bottle OP 06/02/25 09:59 15 ml TID CORNELIA Administration Aspirin 81 mg 05/03/25 22:00 05/03/25 21:12 Aspirin 81 Mg Tablet.Ec PO 06/02/25 21:59 81 mg QHS CORNELIA Administration Bisacodyl 10 mg 05/03/25 07:34 Bisacodyl 10 Mg Supp.Rect RC 06/02/25 07:33 Q5D PRN CONSTIPATION Methylprednisolone Sodium 0 mg 05/03/25 10:00 05/03/25 21:16 Succinate 40 mg/ Sterile Water IV 06/02/25 09:59 40 mg 1 ml Q12HT CORNELIA Administration Divalproex Sodium 500 mg 05/03/25 22:00 05/03/25 21:16 Divalproex Sodium 250 Mg Tab Extended Release PO 06/02/25 21:59 500 mg HS CORNELIA Administration Gabapentin 300 mg 05/03/25 10:00 05/03/25 21:14 Gabapentin 300 Mg Capsule PO 06/02/25 09:59 300 mg TID CORNELIA Administration Gentamicin Sulfate 0 gm 05/03/25 10:00 05/03/25 21:15 Gentamicin 0.1% Cream 30 Gm Cream..G. TP 06/02/25 09:59 30 gm BID CORNELIA Administration Piperacillin Sod/Tazobactam 100 mls @ 200 mls/hr 05/03/25 10:00 05/04/25 02:38 Sod 4.5 gm/ Sodium Chloride IV 06/02/25 09:59 200 mls/hr Q8H CORNELIA Administration Insulin Glargine 20 unit 05/03/25 10:00 05/03/25 21:14 Insulin Glargine 1 Unit SQ 06/02/25 09:59 20 unit BID CORNELIA Administration Insulin Human Lispro 0 unit 05/03/25 01:01 05/03/25 22:04 Insulin Lispro 1 Unit SQ 06/02/25 01:00 2 unit UD PRN Administration HYPERGLYCEMIA Levalbuterol HCl 1.25 mg 05/03/25 09:26 Levalbuterol Hcl 1.25 Mg/0.5 Ml Neb IH 06/02/25 09:25 Q4H PRN PRN SHORTNESS OF BREATH Levothyroxine Sodium 25 mcg 05/03/25 07:00 05/03/25 06:47 Levothyroxine Sodium 25 Mcg Tablet PO 06/02/25 06:59 25 mcg QAM@0700 CORNELIA Administration Loratadine 10 mg 05/03/25 22:00 05/03/25 21:13 Loratadine 10 Mg Tablet PO 06/02/25 21:59 10 mg HS CORNELIA Administration Magnesium Hydroxide 10 ml 05/03/25 08:10 Magnesium Hydroxide 30 Ml Udcup PO 06/02/25 08:09 DAILY PRN PRN CONSTIPATION Melatonin 3 mg 05/03/25 22:00 05/03/25 21:13 Melatonin 3 Mg Tablet PO 06/02/25 21:59 3 mg QHS CORNELIA Administration Miscellaneous Information 1 each 05/03/25 08:15 Medication Intervention 1 Each Each 06/02/25 08:14 .RN TO CHECK CORNELIA Nitroglycerin 0.4 mg 05/03/25 07:34 Nitroglycerin 0.4 Mg Tablet Bottle SL 06/02/25 07:33 Q5MIN PRN MR X 3 PRN CHEST PAIN Nystatin 15 gm 05/03/25 10:00 05/03/25 21:15 Nystatin 15 Gm Powder TP 06/02/25 09:59 15 gm BID CORNELIA Administration Ondansetron HCl 4 mg 05/03/25 09:26 Ondansetron Hcl 4 Mg/2 Ml Vial IV 06/02/25 09:25 Q6H PRN PRN NAUSEA/VOMITING Pramipexole Dihydrochloride 1 mg 05/03/25 10:00 05/03/25 21:14 Pramipexole Di-Hcl 0.5 Mg Tab PO 06/02/25 09:59 1 mg TID CORNELIA Administration Pregabalin 50 mg 05/03/25 10:00 05/03/25 21:13 Pregabalin 50 Mg Capsule PO 06/02/25 09:59 50 mg TID CORNELIA Administration Propranolol HCl 80 mg 05/03/25 10:00 05/03/25 09:22 Propranolol Hcl 20 Mg Tablet PO 06/02/25 09:59 80 mg DAILY CORNELIA Administration Rivaroxaban 20 mg 05/03/25 10:00 05/03/25 09:40 Rivaroxaban 10 Mg Tablet PO 06/02/25 09:59 20 mg DAILY CORNELIA Administration Sertraline HCl 100 mg 05/03/25 22:00 05/03/25 21:20 Sertraline Hcl 50 Mg Tab PO 06/02/25 21:59 100 mg HS CORNELIA Administration Simvastatin 40 mg 05/03/25 22:00 05/03/25 21:12 Simvastatin 20 Mg Tablet PO 06/02/25 21:59 40 mg QHS CORNELIA Administration Sodium Chloride 3 ml 05/03/25 09:45 Sodium Cl For Inhalation 3 Ml Ud Nebule IH 06/02/25 09:44 UD CORNELIA Discontinued Medications Generic Name Dose Route Start Last Admin Trade Name Freq PRN Reason Stop Dose Admin Albuterol/Ipratropium 3 ml 05/02/25 20:30 05/02/25 20:32 Ipratropium/Albuterol Sulfate 3 Ml Ampul.Neb IH 05/02/25 20:31 3 ml STAT ONE Administration Albuterol/Ipratropium Confirm 05/02/25 20:31 Ipratropium/Albuterol Sulfate 3 Ml Ampul.Neb Administered 05/02/25 20:32 Dose 3 ml IH .STK-MED ONE Aspirin 81 mg 05/03/25 10:00 Aspirin 81 Mg Tablet.Ec PO 06/02/25 09:59 DAILY CORNELIA Atorvastatin Calcium 80 mg 05/03/25 22:00 Atorvastatin Calcium 40 Mg Tablet PO 06/02/25 21:59 QPM CORNELIA Furosemide 40 mg 05/02/25 21:33 05/02/25 21:45 Furosemide 40 Mg/4 Ml Vial IV 05/02/25 21:34 40 mg STAT ONE Administration Furosemide Confirm 05/02/25 21:39 Furosemide 40 Mg/4 Ml Vial Administered 05/02/25 21:40 Dose 40 mg .ROUTE .STK-MED ONE Furosemide 60 mg 05/03/25 06:00 05/03/25 05:55 Furosemide 100 Mg/10 Ml Vial IV 05/03/25 06:01 60 mg ONCE ONE Administration Gabapentin 300 mg 05/03/25 10:00 Gabapentin 300 Mg Capsule PO 06/02/25 09:59 TID CORNELIA Ceftriaxone Sodium 1 gm in 100 mls @ 200 mls/hr 05/02/25 21:34 05/02/25 22:19 Rocephin 1 Gm / 100 Ml Nacl IV 05/02/25 22:03 Infused STAT ONE Infusion Sodium Chloride 500 mls @ 500 mls/hr 05/02/25 21:36 05/02/25 21:43 Sodium Chloride 0.9% 500 Ml IV 05/02/25 22:35 500 mls/hr .Q1H ONE Administration Ceftriaxone Sodium Confirm 05/02/25 21:40 Rocephin 1 Gm / 100 Ml Nacl Administered 05/02/25 21:41 Dose 1 gm in 100 mls @ ud IV .STK-MED ONE Sodium Chloride Confirm 05/02/25 21:40 Sodium Chloride 0.9% 500 Ml Administered 05/02/25 21:41 Dose 500 mls @ ud IV .STK-MED ONE Ceftriaxone Sodium 1 gm in 100 mls @ 200 mls/hr 05/02/25 22:00 05/02/25 22:08 Rocephin 1 Gm / 100 Ml Nacl IV 06/01/25 21:59 Not Given Q24H CORNEILA Azithromycin 500 mg/ Sodium 250 mls @ 250 mls/hr 05/03/25 10:00 Chloride IV 06/02/25 09:59 Q24H10 [facility] Ceftriaxone Sodium 1 gm in 100 mls @ 200 mls/hr 05/03/25 22:00 Rocephin 1 Gm / 100 Ml Nacl IV 06/01/25 21:59 QPM CORNELIA Ceftriaxone Sodium 1 gm in 100 mls @ 200 mls/hr 05/03/25 22:00 Rocephin 1 Gm / 100 Ml Nacl IV 06/02/25 21:59 QPM CORNELIA Azithromycin 500 mg/ Sodium 250 mls @ 250 mls/hr 05/03/25 10:00 Chloride IV 06/02/25 09:59 Q24H10 [facility] Insulin Glargine 20 unit 05/03/25 10:00 Insulin Glargine 1 Unit SQ 06/02/25 09:59 BID [facility] Insulin Human Regular 0 unit 05/02/25 22:58 Insulin Regular, Human 1 Unit SQ 06/01/25 22:57 UD PRN HYPERGLYCEMIA Non-Formulary Medication 1 each 05/03/25 07:33 Pharmacy Dosing Request 05/03/25 07:34 STAT ONE Non-Formulary Medication 1 each 05/03/25 08:05 Pharmacy Dosing Request 05/03/25 08:06 STAT ONE Propranolol HCl 80 mg 05/03/25 10:00 Propranolol Hcl 20 Mg Tablet PO 06/02/25 09:59 DAILY [facility] Rivaroxaban 20 mg 05/03/25 22:00 Rivaroxaban 10 Mg Tablet PO 06/02/25 21:59 QPM [facility] Multi-Disciplinary Progress Notes: Multi-Disciplinary Progress Notes 05/03/25 08:13 Respiratory Note by Rosaura Agarwal Patient was on RA at rest and O2 sat 88% on RA at rest. Patient placed on O2 at 3lpm per NC and O2 sat increased to 95% on O2 at 3lpm per NC at rest. Initialized on 05/03/25 08:13 - END OF NOTE Assessment/Plan (1) Acute respiratory failure with hypoxemia Current Visit: Yes Status: Acute Assessment & Plan: -Baseline on room air, now requiring 3 L O2 to maintain adequate saturations spo2 goal > 91% -Exam notable for coarse crackles and expiratory wheezes. -Findings reflect combined contributions of pulmonary edema and possible aspiration pneumonia: Continue Zosyn (see plan for CHF below) -Solumedrol 40mg bid 05/04/25: -2L oxygen with sat at 98%- titrate as appropriate -Continue Zosyn for aspiration pneumonia -DuoNebs/solumedrol Code(s): J96.01 - ACUTE RESPIRATORY FAILURE WITH HYPOXIA (2) Aspiration pneumonia Current Visit: Yes Status: Acute Assessment & Plan: -Recent EGD and dysphagia places her at high aspiration risk. -Continue mechanical soft diet -CXR shows a right lower lobe infiltrate. -Ceftriaxone/azith changed to Zosyn -solumedrol -Supplemental oxygen as needed to maintain spo2 goal > 91% -nebs/inh as needed 05/04: -Continue mechanical soft diet as prescribe to avoid further aspiration -continue Zosyn -WBC reviewed at 9.3<14.3 - improved Code(s): J69.0 - PNEUMONITIS DUE TO INHALATION OF FOOD AND VOMIT (3) CHF (congestive heart failure) Current Visit: Yes Status: Chronic Assessment & Plan: -Chest X-ray demonstrates bilateral ground-glass opacities -Patient received IV Lasix 60 mg this morning with good urine output and improvement in peripheral congestion. -No peripheral edema on exam, though creatinine is uptrending; diuretics held today with plan to resume home regimen tomorrow. 05/04: -5lb weight gain overnight - resume lasix 40mg IV- monitor kidney function closely Code(s): I50.9 - HEART FAILURE, UNSPECIFIED (4) ELIS (acute kidney injury) Current Visit: No Status: Acute Assessment & Plan: -Serum creatinine has increased from baseline 0.91.0 up to 1.40. -Likely multifactorial: diuretic therapy, volume shifts, possible cardiorenal component. -Diuretics temporarily held; BP soft and renal function uptrending 05/04: -Creat at 1.36 <1.40- baseline around 1.0 -monitor closely during diuresis and adjust as needed Code(s): N17.9 - ACUTE KIDNEY FAILURE, UNSPECIFIED (5) Afib Current Visit: No Status: Chronic Assessment & Plan: continue metoprolol/xarelto -Pacemaker Code(s): I48.91 - UNSPECIFIED ATRIAL FIBRILLATION (6) CAD (coronary artery disease) Current Visit: No Status: Chronic Assessment & Plan: -with stent placement -continue home meds Code(s): I25.10 - ATHSCL HEART DISEASE OF [place] CORONARY ARTERY W/O ANG PCTRS (7) History of DVT (deep vein thrombosis) Current Visit: No Status: Chronic Assessment & Plan: -continue xarelto Code(s): Z86.718 - PERSONAL HISTORY OF OTHER VENOUS THROMBOSIS AND EMBOLISM (8) Morbid obesity with BMI of 45.0-49.9, adult Current Visit: No Status: Chronic Assessment & Plan: -advised diet and exercise when able Code(s): E66.01 - MORBID (SEVERE) OBESITY DUE TO EXCESS CALORIES; Z68.42 - BODY MASS INDEX [BMI] 45.0-49.9, ADULT (9) Type 2 diabetes mellitus Current Visit: No Status: Chronic Assessment & Plan: -ADA mechanical soft diet -SSI /glargine -A1c 6.14 - good control (10) History of TIA (transient ischemic attack) Current Visit: Yes Status: Acute Assessment & Plan: -H/o TIA and baseline dementia - continue home meds Code(s): Z86.73 - PRSNL HX OF TIA (TIA), AND CEREB INFRC W/O RESID DEFICITS (11) Hypothyroid Current Visit: Yes Status: Acute Assessment & Plan: -continue levothyroxine VTE: Xarelto PPI: Protonix Next of Kin: Lilly Verdin -alaina - [phone] Dispo: 2-3 days Plan of care time spent > 35 mins Code(s): J96.01 - ACUTE RESPIRATORY FAILURE WITH HYPOXIA (2) Aspiration pneumonia Current Visit: Yes Status: Acute Code(s): J69.0 - PNEUMONITIS DUE TO INHALATION OF FOOD AND VOMIT (3) CHF (congestive heart failure) Current Visit: Yes Status: Chronic Code(s): I50.9 - HEART FAILURE, UNSPECIFIED (4) ELIS (acute kidney injury) Current Visit: No Status: Acute Code(s): N17.9 - ACUTE KIDNEY FAILURE, UNSPECIFIED (5) Afib Current Visit: No Status: Chronic Code(s): I48.91 - UNSPECIFIED ATRIAL FIBRILLATION (6) CAD (coronary artery disease) Current Visit: No Status: Chronic Code(s): I25.10 - ATHSCL HEART DISEASE OF [place] CORONARY ARTERY W/O ANG PCTRS (7) History of DVT (deep vein thrombosis) Current Visit: No Status: Chronic Code(s): Z86.718 - PERSONAL HISTORY OF OTHER VENOUS THROMBOSIS AND EMBOLISM (8) Morbid obesity with BMI of 45.0-49.9, adult Current Visit: No Status: Chronic Code(s): E66.01 - MORBID (SEVERE) OBESITY DUE TO EXCESS CALORIES; Z68.42 - BODY MASS INDEX [BMI] 45.0-49.9, ADULT (9) Type 2 diabetes mellitus Current Visit: No Status: Chronic (10) History of TIA (transient ischemic attack) Current Visit: Yes Status: Acute Code(s): Z86.73 - PRSNL HX OF TIA (TIA), AND CEREB INFRC W/O RESID DEFICITS (11) Hypothyroid Current Visit: Yes Status: Acute Code(s): E03.9 - HYPOTHYROIDISM, UNSPECIFIED
[2025-05-04 05:53] LABS: BASOPHIL % 0.1 % (0.1-1.2); Basophil (Absolute #) 0.01 x10^3/uL (0.01-0.08); Eosinophil (Absolute #) 0 x10^3/uL (0.04-0.36); Hematocrit 34.9 % (34.1-44.9); Hemoglobin 10.8 g/dL (11.2-15.7); IMMATURE GRAN # 0.04 x10^3u/L (0.001-0.031); IMMATURE GRAN % 0.4 % (0.001-0.429); Lymphocyte (Absolute #) 1.22 x10^3/uL (1.18-3.74); Mean Corpuscular Hemoglobin 30.9 pg (25.6-32.2); Mean Corpuscular Hgb Concent. 30.9 g/dL (32.2-35.5); Monocyte (Absolute #) 0.15 x10^3/uL (0.24-0.86); NUCLEATED RBC # 0.00 x10^3u/L (0.00-0.012); NUCLEATED RBC % 0.0 % (0.00-0.2); Platelet Count 156 x10^3/uL (182-369); Red Blood Count 3.49 x10^6/uL (3.93-5.22); White Blood Count 9.3 x10^3/uL (3.98-10.04)
[2025-05-04 06:18] LABS: Calcium 8.4 mg/dL (8.4-10.2); Carbon Dioxide 30.0 mmol/L (22-30); Creatinine 1 1.36 mg/dL (0.52-1.04); EST GLOMERULAR FILTRATION RATE 40.1 ML/MIN; Glucose 237.0 mg/dL (74-106); Potassium 4.3 mmol/L (3.5-5.1); SGOT/AST 37.0 U/L (14-36); SGPT/ALT 25.0 U/L (0-35); Total Protein 6.1 g/dL (6.3-8.2)
[2025-05-04] MEDS: PHARMACY DOSING REQUEST MC ONE (09:19)
[2025-05-04] MEDS: Lasix 40 MG/4 ML IV SCH (10:28)
[2025-05-04] MEDS: HUMALOG SQ PRN (17:48)
[2025-05-05 05:11] LABS: BASOPHIL % 0.1 % (0.1-1.2); Basophil (Absolute #) 0.01 x10^3/uL (0.01-0.08); Eosinophil (Absolute #) 0 x10^3/uL (0.04-0.36); Hematocrit 38.7 % (34.1-44.9); Hemoglobin 11.9 g/dL (11.2-15.7); IMMATURE GRAN # 0.04 x10^3u/L (0.001-0.031); IMMATURE GRAN % 0.5 % (0.001-0.429); Lymphocyte (Absolute #) 1.29 x10^3/uL (1.18-3.74); Mean Corpuscular Hemoglobin 31.3 pg (25.6-32.2); Mean Corpuscular Hgb Concent. 30.7 g/dL (32.2-35.5); Monocyte (Absolute #) 0.20 x10^3/uL (0.24-0.86); NUCLEATED RBC # 0.00 x10^3u/L (0.00-0.012); NUCLEATED RBC % 0.0 % (0.00-0.2); Platelet Count 196 x10^3/uL (182-369); Red Blood Count 3.80 x10^6/uL (3.93-5.22); White Blood Count 8.6 x10^3/uL (3.98-10.04)
[2025-05-05 05:32] LABS: Calcium 8.7 mg/dL (8.4-10.2); Carbon Dioxide 28.0 mmol/L (22-30); Creatinine 1 1.08 mg/dL (0.52-1.04); EST GLOMERULAR FILTRATION RATE 52.9 ML/MIN; Glucose 244.0 mg/dL (74-106); Potassium 4.3 mmol/L (3.5-5.1); SGOT/AST 62.0 U/L (14-36); SGPT/ALT 42.0 U/L (0-35); Total Protein 6.7 g/dL (6.3-8.2)
--- NOTE | 2025-05-05 09:39 | PCM.DS ---
Discharge Summary Date of Admission: 05/02/25 22:41 Date of Discharge: 05/05/25 Admitting Physician: CHARY OCONNOR MD Primary Care Provider: EARLINE LUNDBERG DO Allergies Allergies oxycodone Allergy (Severe, Verified 05/02/25 20:00) Itching Hospital Summary - Hospital Course Hospital Course: Ms. Verdin is a 79-year-old woman who presented from her nursing facility after undergoing an EGD earlier in the day for evaluation of suspected esophageal stricture (On 05/03). Although she initially tolerated the procedure, she developed hypoxia about an hour later, prompting transfer for further evaluation. On arrival, she reported worsening shortness of breath over several days, accompanied by orthopnea, bilateral lower extremity edema, and progressive dysphagia with choking episodes, though she denied fever, chills, or productive cough. Examination and labs revealed signs of volume overload, leukocytosis, anemia, and a mild, downtrending troponin elevation suggestive of demand ischemia. Imaging showed new right lower lobe consolidation consistent with aspiration or pneumonia and diffuse bilateral ground-glass opacities, likely reflecting pulmonary edema. She was initially treated with IV fluids due to soft blood pressures and then started on IV Lasix with good diuresis, though worsening renal function prompted temporary discontinuation of diuretics. Broad-spectrum antibiotics (piperacillin-tazobactam) were initiated for aspiration coverage. By 05/04, she remained dyspneic with coarse crackles and wheezing, and a 5-lb weight gain along with elevated creatinine suggested ongoing fluid overload. Diuresis was resumed with plans for close monitoring. She was maintained on a mechanical soft diet for swallowing safety. On 05/05, the patient reported feeling improved and expressed readiness for discharge back to her [facility] facility. Her oxygen saturation on room air was 94%, lung sounds were clear, and she denied further symptoms. Pending improvement in elevated morning blood pressure with medications, discharge was considered appropriate. - Vitals & Intake/Output Vital Signs: Vital Signs Temperature 98.0 F 05/05/25 07:12 Pulse Rate 106 H 05/05/25 07:12 Respiratory Rate 13 05/05/25 07:12 Blood Pressure 183/86 05/05/25 07:12 O2 Sat by Pulse Oximetry 95 05/05/25 07:12 Intake & Output: Intake & Output 05/02/25 05/03/25 05/04/2525 11:59 11:59 11:59 11:59 Intake Total 743 566 829 Output Total 660 1633 0713 Balance 231 569 -1301 Weight 134.9 kg 137 kg 137.4 kg - Lab Result Diagrams: 05/05/25 05:00 05/05/25 05:00 Lab Results-Last 24 Hrs: Lab Results-Last 24 Hours 05/04/25 05/04/25 05/04/25 Range/Units 11:47 16:40 21:30 WBC (3.98-10.04) x10^3/uL RBC (3.93-5.22) x10^6/uL Hgb (11.2-15.7) g/dL Hct (34.1-44.9) % MCV (79.4-94.8) fL MCH (25.6-32.2) pg MCHC (32.2-35.5) g/dL RDW (11.7-14.4) % Plt Count (182-369) x10^3/uL MPV (9.4-12.3) fL Gran % (34.0-71.1) % Immature Gran % (Auto) (0.001-0.429) % Nucleat RBC Rel Count (0.00-0.2) % Eos # (Auto) (0.04-0.36) x10^3/uL Immature Gran # (Auto) (0.001-0.031) x10^3u/L Absolute Lymphs (auto) (1.18-3.74) x10^3/uL Absolute Monos (auto) (0.24-0.86) x10^3/uL Absolute Nucleated RBC (0.00-0.012) x10^3u/L Lymphocytes % (19.3-51.7) % Monocytes % (4.7-12.5) % Eosinophils % (0.7-5.8) % Basophils % (0.1-1.2) % Absolute Granulocytes (1.56-6.13) x10^3/uL Basophils # (0.01-0.08) x10^3/uL Sodium (135-145) mmol/L Potassium (3.5-5.1) mmol/L Chloride (98-107) mmol/L Carbon Dioxide (22-30) mmol/L Anion Gap (5-15) MEQ/L BUN (7-17) mg/dL Creatinine (0.52-1.04) mg/dL Estimated GFR ML/MIN Glucose (74-106) mg/dL POC Glucometer 220 H 310 H 344 H (74 to 106) mg/dL Calcium (8.4-10.2) mg/dL Total Bilirubin (0.2-1.3) mg/dL AST (14-36) U/L ALT (0-35) U/L Alkaline Phosphatase (38-126) U/L Serum Total Protein (6.3-8.2) g/dL Albumin (3.5-5.0) g/dL 05/05/25 05/05/25 05/05/25 Range/Units 05:00 05:00 07:25 WBC 8.6 (3.98-10.04) x10^3/uL RBC 3.80 L (3.93-5.22) x10^6/uL Hgb 11.9 (11.2-15.7) g/dL Hct 38.7 (34.1-44.9) % MCV 101.8 H (79.4-94.8) fL MCH 31.3 (25.6-32.2) pg MCHC 30.7 L (32.2-35.5) g/dL RDW 13.7 (11.7-14.4) % Plt Count 196 (182-369) x10^3/uL MPV 10.8 (9.4-12.3) fL Gran % 82.2 H (34.0-71.1) % Immature Gran % (Auto) 0.5 H (0.001-0.429) % Nucleat RBC Rel Count 0.0 (0.00-0.2) % Eos # (Auto) 0 L (0.04-0.36) x10^3/uL Immature Gran # (Auto) 0.04 H (0.001-0.031) x10^3u/L Absolute Lymphs (auto) 1.29 (1.18-3.74) x10^3/uL Absolute Monos (auto) 0.20 L (0.24-0.86) x10^3/uL Absolute Nucleated RBC 0.00 (0.00-0.012) x10^3u/L Lymphocytes % 14.9 L (19.3-51.7) % Monocytes % 2.3 L (4.7-12.5) % Eosinophils % 0.0 L (0.7-5.8) % Basophils % 0.1 (0.1-1.2) % Absolute Granulocytes 7.09 H (1.56-6.13) x10^3/uL Basophils # 0.01 (0.01-0.08) x10^3/uL Sodium 138 (135-145) mmol/L Potassium 4.3 (3.5-5.1) mmol/L Chloride 104 (98-107) mmol/L Carbon Dioxide 28 (22-30) mmol/L Anion Gap 10.5 (5-15) MEQ/L BUN 33 H (7-17) mg/dL Creatinine 1.08 H (0.52-1.04) mg/dL Estimated GFR 52.9 ML/MIN Glucose 244 H (74-106) mg/dL POC Glucometer 203 H (74 to 106) mg/dL Calcium 8.7 (8.4-10.2) mg/dL Total Bilirubin 0.40 (0.2-1.3) mg/dL AST 62 H (14-36) U/L ALT 42 H (0-35) U/L Alkaline Phosphatase 82 (38-126) U/L Serum Total Protein 6.7 (6.3-8.2) g/dL Albumin 3.4 L (3.5-5.0) g/dL Micro Results-Entire Visit: Microbiology 05/02/25 20:20 Blood Culture - Preliminary Blood 05/02/25 20:25 Blood Culture - Preliminary Blood Accuchecks Date 05/05/25 Date 05/04/25 Date 05/04/25 Time 07:40 Time 16:53 Time 11:54 - Procedures and Test Procedures and Tests throughout Hospitalization: Therapy Orders & Screens 05/02/25 20:30 Respiratory Therapy Assessment DAILY Comment: 05/02/25 22:58 EKG REPEAT IN AM Comment: Respiratory Therapy Consult ONCE Comment: Reason For Exam: 05/02/25 23:43 RT Screen per Nursing Assess ONCE Comment: Protocol Order Physician Instructions: Greater than 3 points order RT Admission Screen Reason For Exam: Triggered on Admission Diagnosis: Right pulmonary infiltrate, CHF, hypoxia Diagnosis: Right pulmonary infiltrate, CHF, hypoxia Pneumonia: No Home O2: No Asthma: No CHF: Yes Home CPAP/BIPAP: Yes Home Nebs/MDI: No Total Points: 8 05/03/25 00:36 BiPap/CPAP ROUTINE Comment: per home use Diagnosis: Right pulmonary infiltrate, CHF, hypoxia 05/03/25 00:37 Oxygen Nasal Cannula 3 lpm Comment: Diagnosis: Right pulmonary infiltrate, CHF, hypoxia 05/03/25 07:30 OT Screen per Nursing Assess ONCE Comment: Protocol Order Physician Instructions: Greater than 3 points order OT Admission Screening Reason For Exam: Triggered on Admission Diagnosis: Right pulmonary infiltrate, CHF, hypoxia Open Wound/Cellutlitis/Pressure Ulcers: Yes Acute Fx/ORIF/Change in wt bearing status: No Severe MUSCULOSKELETAL pain: No ADL Dysfunction: Yes Acute CVA w/Hemiparesis/Hemiplegia: No Decreased Functional Mobility/Strength: Yes Sprain/Strain: No Acute Post-op Mobility Dysfunction: No Total Points: 9 PT Screen per Nursing Assess ONCE Comment: Protocol Order Physician Instructions: Greater than 3 points order PT Admission Screenin Reason For Exam: Triggered on Admission Diagnosis: Right pulmonary infiltrate, CHF, hypoxia Open Wound/Cellutlitis/Pressure Ulcers: Yes Acute Fx/ORIF/Change in wt bearing status: No Severe MUSCULOSKELETAL pain: No ADL Dysfunction: Yes Acute CVA w/Hemiparesis/Hemiplegia: No Decreased Functional Mobility/Strength: Yes Sprain/Strain: No Acute Post-op Mobility Dysfunction: No Total Points: 9 ST Screen per Nursing Assess ONCE Comment: Protocol Order Physician Instructions: Greater than [address] Admission Screening Reason For Exam: Triggered on Admission Diagnosis: Right pulmonary infiltrate, CHF, hypoxia CVA/Dysphagia/Aphasia: No Cognitive Deficits: No Dehydration/Nutrition Deficit: No Reflux: No Oral-Motor Difficulties: No Pneumonia: No Long-Term Resident: Yes Total Points: 5 05/03/25 09:26 Respiratory Therapy Consult ONCE Comment: Reason For Exam: Diagnosis: Right pulmonary infiltrate, CHF, hypoxia Discharge Exam General Appearance: no apparent distress, alert, obese Neurologic Exam: alert, oriented x 3, cooperative, normal mood/affect, nml cerebellar function, sensation nml, No motor deficits Eye Exam: PERRL, EOMI, eyes nml inspection Ears, Nose, Throat Exam: normal ENT inspection, pharynx normal, moist mucous membranes Neck Exam: normal inspection, non-tender, supple, full range of motion Respiratory Exam: normal breath sounds, lungs clear, No respiratory distress Cardiovascular Exam: regular rate/rhythm, normal heart sounds Gastrointestinal/Abdomen Exam: soft, No tenderness, No mass Pelvic Exam: deferred Rectal Exam: deferred Back Exam: normal inspection, normal range of motion, No CVA tenderness, No vertebral tenderness Extremity Exam: normal inspection, normal range of motion Skin Exam: normal color, warm, dry Wound Assessment: Skin/Wound Assessment Wound/Incision Assessment Start: 05/02/25 23:43 Text: Status: Active Freq: Q6H Protocol: Document 05/05/25 02:00 KD (Rec: 05/05/25 02:07 KD [id number]) Wound/Incision Assessment Bilateral Lower Legs Wound Assessment Shift Assessment Dressing Status Dry & Intact Comment CRUZ, wrapped per Dr. Tran on 05/01/25; CDI - continues to remain true Bilateral Breast Folds Wound Assessment Shift Assessment Wound Type [place] Wound Stage Non Pressure Wound Drainage Amount None General Appearance Open to air,Reddened Comment Nystatin powder applied per orders - remains true Bilateral Abdominal Folds Wound Assessment Shift Assessment Wound Type [place] Wound Stage Non Pressure Wound Drainage Amount None General Appearance Open to air,Reddened Comment Nystatin powder applied per orders - remains true Sacrum Wound Assessment Shift Assessment Wound Type Pressure Ulcer Wound Stage Stage II Drainage Amount None General Appearance Open to air,Reddened Length (cm) (cm) 0.3 Width (cm) (cm) 0.3 Surrounding Tissue Dark Red Comment Barrier cream & zinc ointment applied PRN - remains true Wound Photo Photo Taken No Final Diagnosis/Problem List - Final Discharge Diagnosis/Problem (1) Aspiration pneumonia Current Visit: Yes Status: Acute Assessment & Plan: - Chest X-ray demonstrates bilateral ground-glass opacities - Recent EGD and dysphagia places her at high aspiration risk. - Continue mechanical soft diet - RA 94% - Zosyn, IV Steroids, Xoponex - CBC reviewed - WBC normalized Code(s): J69.0 - PNEUMONITIS DUE TO INHALATION OF FOOD AND VOMIT (2) Acute respiratory failure with hypoxemia Current Visit: Yes Status: Resolved Assessment & Plan: - 2:2 pneumonia- see plan above Code(s): J96.01 - ACUTE RESPIRATORY FAILURE WITH HYPOXIA (3) CHF (congestive heart failure) Current Visit: Yes Status: Chronic Assessment & Plan: - Lasix 40 daily IV - Daily weight - Chest X-ray demonstrates bilateral ground-glass opacities Code(s): I50.9 - HEART FAILURE, UNSPECIFIED (4) Elevated troponin I level Current Visit: Yes Status: Acute Assessment & Plan: - Likely demand ischemia from pneumonia and CHF. - Molina KOENIG - TELE - EKG - Trops 0.033, 0.049, 0.045- trended back down Code(s): R79.89 - OTHER SPECIFIED ABNORMAL FINDINGS OF BLOOD CHEMISTRY (5) Afib Current Visit: No Status: Chronic Assessment & Plan: - Continue metoprolol/xarelto Code(s): I48.91 - UNSPECIFIED ATRIAL FIBRILLATION (6) CAD (coronary artery disease) Current Visit: No Status: Chronic Assessment & Plan: - Continue home meds - F/U with cardiology OP Code(s): I25.10 - ATHSCL HEART DISEASE OF [place] CORONARY ARTERY W/O ANG PCTRS (7) Diabetes mellitus type II, controlled Current Visit: No Status: Chronic Assessment & Plan: - ADA mechanical soft diet - SSI /glargine - Accuchecks AC/HS - A1c 6.14 - good control - Changed to high dose s/s today Code(s): E11.9 - TYPE 2 DIABETES MELLITUS WITHOUT COMPLICATIONS (8) History of DVT (deep vein thrombosis) Current Visit: No Status: Chronic Assessment & Plan: - Continue xarelto Code(s): Z86.718 - PERSONAL HISTORY OF OTHER VENOUS THROMBOSIS AND EMBOLISM (9) History of TIA (transient ischemic attack) Current Visit: No Status: Chronic Assessment & Plan: -Hx TIA and baseline dementia - continue home meds - Continue statin, ASA, Xarelto Code(s): Z86.73 - PRSNL HX OF TIA (TIA), AND CEREB INFRC W/O RESID DEFICITS (10) Hypothyroid Current Visit: No Status: Chronic Assessment & Plan: - Continue levothyroxine Code(s): E03.9 - HYPOTHYROIDISM, UNSPECIFIED (11) Morbid obesity with BMI of 45.0-49.9, adult Current Visit: No Status: Chronic Assessment & Plan: - Advised ADA, AHA diet and exercise control as tolerated Code(s): E66.01 - MORBID (SEVERE) OBESITY DUE TO EXCESS CALORIES; Z68.42 - BODY MASS INDEX [BMI] 45.0-49.9, ADULT (12) ELIS (acute kidney injury) Current Visit: No Status: Resolved Assessment & Plan: - Creat 1.08- near Baseline - CMP reviewed Code(s): N17.9 - ACUTE KIDNEY FAILURE, UNSPECIFIED (13) Obstructive sleep apnea Current Visit: Yes Status: Chronic Assessment & Plan: - [facility] Code(s): G47.33 - OBSTRUCTIVE SLEEP APNEA (ADULT) (PEDIATRIC) (14) HTN (hypertension) Current Visit: Yes Status: Chronic Assessment & Plan: - BP elevated this AM- trend - Continue home meds D/C plan of care time: > 45 minutes D/C meds: Prednisone, cefuroxime and azithromycin Code(s): I10 - ESSENTIAL (PRIMARY) HYPERTENSION - Discharge Discharge Date: 05/05/25 ([facility]) Disposition: Skilled Care @ [facility] Condition: Fair Prescriptions: New cefuroxime axetiL [Cefuroxime] 500 mg PO BID 5 Days #10 tablet Azithromycin 250 mg [Zithromax 250 MG TABLET] 250 mg PO ZPACK 5 Days #6 tablet Prednisone 20 mg [Deltasone 20 mg] 20 mg PO BID 5 Days #10 tablet Continue Aspirin EC 81 mg [Ecotrin 81 mg] 81 mg PO QHS Atorvastatin Calcium 80 mg PO QHS Pramipexole Di-HCl [Pramipexole Dihydrochloride] 1 mg PO TID Melatonin 3 mg PO QHS Insulin Glargine,Hum.rec.anlog [Lantus] 20 unit SQ BID Allopurinol 100 mg [Zyloprim 100 mg] 100 mg PO DAILY Levothyroxine Sodium 25 mcg PO DAILY Acetaminophen 325 mg [Tylenol 325 mg] 650 mg PO Q6H PRN PRN PRN Reason: Pain Nystatin Powder 15 gm [Nystop Powder 15 gm] 15 gm TP BID Propranolol HCl [Inderal ] 80 mg PO DAILY Loratadine 10 mg [Claritin 10 mg] 10 mg PO HS Carboxymethylcellulose Sodium [Artificial Tears] 1 unit OP TID glucagon HCL [Glucagon Emergency Kit] 1 mg SQ UD PRN PRN Reason: Hypoglycemia Sertraline HCl 100 mg PO HS Hydrocodone/Acetaminophen [Hydrocodone-Acetamin 5-325 mg] 1 tab PO Q4HPRN PRN MDD 6 PRN Reason: Pain Rivaroxaban [Xarelto] 20 mg PO DAILY Dulaglutide [Trulicity] 0.75 mg SQ Q7D Divalproex Sodium ER 250 mg [Depakote EXTENDED RELEASE 250 MG] 2 tab PO HS Gabapentin [Neurontin ] 300 mg PO TID Gentamicin 0.1% Cream [Gentamicin Sulfate 0.1% Cream] 1 applic TP BID Loperamide HCl 2 mg [Imodium 2 mg] 2 mg PO Q6H PRN PRN PRN Reason: Diarrhea Lubiprostone [Amitiza] 8 mcg PO BID Magnesium Hydroxide [Milk of Magnesia] 10 ml PO DAILY PRN PRN PRN Reason: Constipation Pregabalin 50 mg [Lyrica 50MG] 50 mg PO TID Bisacodyl 10 mg [Dulcolax 10 MG SUPP] 10 mg RC Q5D PRN PRN Reason: Constipation Nitroglycerin 0.4 mg Tablet [Nitrostat 0.4 MG Tablet] 0.4 mg SL Q5MIN PRN MR X 3 PRN PRN Reason: Chest Pain Ondansetron [Ondansetron Odt ] 4 mg PO Q8H PRN PRN Reason: Nausea Furosemide [Lasix] 60 mg PO QAM Furosemide 20 mg [Lasix 20 mg] 20 mg PO EVENING MEAL Instructions: Aspiration pneumonia, Heart failure in adults - Discharge instructions Additional Instructions: RESUME PREVIOUS NH ORDERS Continue mechanical soft diet. SEE ATTACHED MED LIST Follow up with: DANTE SORIANO NP [NON-STAFF PHY W/O PRIVILEGES, UNKNOWN] - 05/08/25 9:00 am
[2025-05-05] MEDS: HUMALOG SQ PRN (11:03)
[2025-05-05 11:42] VITALS: BP 135/82; PULSE 60; RESP 16; TEMP 97.9; O2SAT 96
[2025-05-05] MEDS: IMODIUM 2 MG PO PRN (12:26)
== END 2025-05-05 13:55 | DRG 177 ==
LOC: ED 19:46 → MED SURG 22:41 → OBSVTOIN 05-03 09:09
PROVIDERS: ADMIT Internal Medicine; ATTEND Internal Medicine
DX: J69.0 Pneumonitis due to inhalation of food and vomit (principal); J96.01 Acute respiratory failure with hypoxia; Z68.42 Body mass index [BMI] 45.0-49.9, adult; N17.9 Acute kidney failure, unspecified; I11.0 Hypertensive heart disease with heart failure; I50.9 Heart failure, unspecified; R79.89 Other specified abnormal findings of blood chemistry; I48.91 Unspecified atrial fibrillation; I25.10 Atherosclerotic heart disease of native coronary artery without angina pectoris; E11.9 Type 2 diabetes mellitus without complications; Z86.718 Personal history of other venous thrombosis and embolism; Z86.73 Personal history of transient ischemic attack (TIA), and cerebral infarction without residual deficits; E03.9 Hypothyroidism, unspecified; E66.01 Morbid (severe) obesity due to excess calories; G47.33 Obstructive sleep apnea (adult) (pediatric); E78.5 Hyperlipidemia, unspecified; L89.152 Pressure ulcer of sacral region, stage 2; R60.0 Localized edema; Z79.899 Other long term (current) drug therapy; Z79.01 Long term (current) use of anticoagulants
CPT/HCPCS: 36415; 36600; 71045; 80053; 80164; 81001; 82375; 82803; 82947; 83605; 83735; 83880; 84134; 84484; 85025; 87040; 87637; 93005; 93041; 94640; 94660; 94760; 94762; 96374; 99291; Q3014